=== PATIENT | male | born 1950 | race Caucasian/White ===

== ENCOUNTER 2017-02-04 14:17 | Emergency (ER) | payer MEDICARE, BC ==
[2017-02-04 14:33] VITALS: BP 152/81
--- NOTE | 2017-02-04 17:13 | CT ---
CT abdomen and pelvis Technique: Multiple axial sections were obtained from above the dome of the diaphragm inferiorly through the pubic symphysis. Intravenous and oral contrast was not utilized. Study has been performed as a ureteral stone protocol. Findings: Left kidney shows a minimal nonobstructing stone measuring 3 mm. Right kidney shows a larger stone measuring 1.2 cm which lies within the distal right renal pelvis. This could cause intermittent obstruction at the UPJ. No other abnormal calcifications are seen within the kidneys. No ureteral dilatation or ureteral calculus is seen. Visualized lung bases shows nothing acute. Liver shows no focal parenchymal abnormality. Possible fatty infiltration is noted within the liver. Spleen appears within normal limits. Adrenal glands show no nodule. Pancreas is within normal limits. Gallbladder shows no calcified gallstones. Aorta shows mild atherosclerotic calcification without aneurysm. No retroperitoneal adenopathy or mesenteric abnormalities are seen. No pelvic mass or adenopathy is seen. Appendix is not visualized with certainty. Fat-containing umbilical hernia is incidentally noted. Small fat containing bilateral inguinal hernias are also noted. No free fluid or inflammatory change is seen. Bone window settings shows scattered degenerative change and scoliosis within the spine. Vacuum disc phenomena is seen primarily within the L3-4 through L5-S1 disks. Annular rupture is seen at L5-S1 with small amount of epidural air. Mild spondylolisthesis seen at L4-L5 due to degenerative apophyseal change. Impression: 1. 1.2 cm stone located within the distal right renal pelvis. As mentioned above, this could cause intermittent obstruction at the UPJ. 2. Minimal nonobstructing stone within the left kidney. 3. No ureteral dilatation or ureteral stone is seen. 4. Other incidental findings as noted above. Diagnostic code #3
--- NOTE | 2017-02-04 18:13 | EDM.PDOC ---
ED HPI GENERAL MEDICAL PROBLEM - General Chief Complaint: Abdominal Pain Stated Complaint: RT SIDE ABDOMINAL PAIN Time Seen by Provider: 02/04/17 15:05 Source of Information: Reports: Patient History Limitations: Reports: No Limitations - History of Present Illness INITIAL COMMENTS - FREE TEXT/NARRATIVE: 66-year-old male presents for evaluation treatment of right lower quadrant abdominal pain. Patient reports that the pain has been present for the last 2 weeks. He states that lifting and physical labor makes the pain worse. It is nearly resolved when he is sitting and stretching. Reports it is worse it is a 10 out of 10.He reports nausea associated with pain. He denies any dysuria, hematuria, fevers or vomiting. Reports that his last bowel movement was yesterday soft and easily passed. No trouble with diarrhea, constipation, melena or hematochezia. The patient reports that he has had kidney stones the past and does not feel this feels similar. Patient has a ventral abdominal wall hernia which is in need of repair. He has not appreciated any erythema, swelling or severe pain to the hernia. He reports that it is reducible. Patient has past medical history of diabetes. Abdomen Pain Score (Numeric/FACES): 5 - Related Data Allergies Allergy/AdvReac Type Severity Reaction Status Date / Time No Known Allergies Allergy Verified 03/08/15 17:23 Home Meds: Home Meds Glimepiride [Glimepiride] 2 mg PO BID 03/08/15 [History] Ibuprofen [Motrin] 800 mg PO Q6H PRN 03/08/15 [History] Insulin Glarg,Human.Rec.Analog [LantUS Solostar] 40 unit SQ DAILY 03/08/15 [ History] oxyCODONE HCl/Acetaminophen [Percocet 5-325 mg Tablet] 5 - 325 mg PO Q6H PRN [History] sitaGLIPtin Phos/Metformin HCl [Janumet 50-1,000 MG] 50 - 1,000 mg PO BID [History] Acetaminophen/oxyCODONE [Percocet 325-5 MG] 1 tab PO Q6H PRN #20 tablet [Rx] Past Medical History Other HEENT History: hearing aides and reading glasses Other Genitourinary History: on medication for frequent urination Endocrine/Metabolic History: Reports: Diabetes, Type II Other Endocrine/Metabolic History: on insulin - Past Surgical History Other HEENT Surgeries/Procedures: hearing aides and reading glasses Social & Family History - Tobacco Use Smoking Status *Q: Former Smoker Years of Tobacco use: 23 Used Tobacco, but Quit: Yes Month Tobacco Last Used: 1983 Second Hand Smoke Exposure: No - Caffeine Use Caffeine Use: Reports: Coffee, Soda - Recreational Drug Use Recreational Drug Use: No ED ROS GENERAL - Review of Systems Review Of Systems: See Below Constitutional: Denies: Fever GI/Abdominal: Reports: Abdominal Pain (RLQ abd pain), Nausea (associated with pain), Other (ventral abdominal hernia, no swelling, increased erythema or pain) . Denies: Constipation, Diarrhea, Hematochezia, Melena, Vomiting : Denies: Dysuria, Hematuria Skin: Denies: Erythema ED EXAM, RENAL/ - Physical Exam Exam: See Below Exam Limited By: No Limitations General Appearance: Alert, WD/WN, No Apparent Distress, Obese Respiratory/Chest: No Respiratory Distress, Lungs Clear, Normal Breath Sounds Cardiovascular: Normal Peripheral Pulses, Regular Rate, Rhythm, No Murmur GI/Abdominal: Normal Bowel Sounds, Soft, Non-Tender (unable to reporduce pain), Hernia (approximately golf ball sized reducable abdominal wall hernia) Back Exam: Normal Inspection. No: CVA Tenderness (L), CVA Tenderness (R) Neurological: Alert, Oriented, Normal Cognition Psychiatric: Normal Affect, Normal Mood Skin Exam: Warm, Normal Color Course - Vital Signs Last Recorded V/S: Last Vital Signs Temp 35.9 C 02/04/17 14:32 Pulse 85 02/04/17 14:32 Resp 20 02/04/17 14:32 BP 152/81 H 02/04/17 14:32 Pulse Ox 95 02/04/17 14:32 - Orders/Labs/Meds Orders: Active Orders 24 hr Category Date Time Status Abdomen 2V AP Flat Upright [CR] Stat Exams 02/04/17 15:14 Taken Labs: Laboratory Tests 02/04/17 02/04/17 02/04/17 Range/Units 15:30 15:45 15:45 WBC 9.28 H (4.23-9.07) K/mm3 RBC 4.81 (4.63-6.08) M/mm3 Hgb 14.5 (13.7-17.5) gm/L Hct 44.7 (40.1-51.0) % MCV 92.9 H (79.0-92.2) fl MCH 30.1 (25.7-32.2) pg MCHC 32.4 (32.2-35.5) g/dl RDW Std Deviation 46.6 H (35.1-43.9) fL Plt Count 204 (163-337) K/mm3 MPV 9.9 (9.4-12.3) fl Neut % (Auto) 68.0 H (34.0-67.9) % Lymph % (Auto) 21.7 L (21.8-53.1) % Mckean % (Auto) 7.1 (5.3-12.2) % Eos % (Auto) 2.8 (0.8-7.0) Baso % (Auto) 0.3 (0.1-1.2) % Neut # (Auto) 6.31 H (1.78-5.38) K/mm3 Lymph # (Auto) 2.01 (1.32-3.57) K/mm3 Mckean # (Auto) 0.66 (0.30-0.82) K/mm3 Eos # (Auto) 0.26 (0.04-0.54) K/mm3 Baso # (Auto) 0.03 (0.01-0.08) K/mm3 Sodium 141 (136-145) mEq/L Potassium 4.3 (3.5-5.1) mEq/L Chloride 104 (98-107) mEq/L Carbon Dioxide 25 (21-32) mEq/L Anion Gap 16.3 H (5-15) BUN 22 H (7-18) mg/dL Creatinine 1.1 (0.7-1.3) mg/dL Est Cr Clr Drug Dosing 75.77 mL/min Estimated GFR (MDRD) > 60 (>60) mL/min BUN/Creatinine Ratio 20.0 H (14-18) Glucose 187 H (80-115) mg/dL Calcium 9.1 (8.5-10.1) mg/dL Total Bilirubin 0.5 (0.2-1.0) mg/dL AST 12 L (15-37) U/L ALT 25 (16-63) U/L Alkaline Phosphatase 64 (46-116) U/L C-Reactive Protein 1.9 H* (<1.0) mg/dL Total Protein 7.4 (6.4-8.2) g/dl Albumin 3.7 (3.4-5.0) g/dl Globulin 3.7 gm/dL Albumin/Globulin Ratio 1.0 (1-2) Urine Color Light yellow (Yellow) Urine Appearance Slt cloudy H (Clear) Urine pH 5.5 (5.0-8.0) Ur Specific [place] > or = 1.030 (1.005-1.030) Urine Protein 2+ H (Negative) Urine Glucose (UA) 1+ H (Negative) Urine Ketones Negative (Negative) Urine Occult Blood 3+ H (Negative) Urine Nitrite Negative (Negative) Urine Bilirubin Negative (Negative) Urine Urobilinogen 0.2 (0.2-1.0) Ur Leukocyte Esterase Negative (Negative) Urine RBC >100 H (0-5) /hpf Urine WBC 0-5 (0-5) /hpf Ur Epithelial Cells 0-5 (0-5) /hpf Amorphous Sediment Few H (NOT SEEN) /hpf Urine Bacteria Few (FEW) /hpf Urine Mucus Not seen (FEW) /hpf - Radiology Interpretation Free Text/Narrative:: flat and upright abdominal xray shows increased stool to the right colon. No air fluid levels. CT of the abdomen and pelvis without contrast impression for Dr. Hyde 1. 1.2 cm stone located within the distal right renal pelvis. As mentioned this could cause intermittent obstruction at the UPJ. 2. Minimal nonobstructing stone within the left kidney. 3. No ureteral dilation or ureteral stone is seen. 4. Other incidental findings. - Re-Assessments/Exams Free Text/Narrative Re-Assessment/Exam: 02/04/17 16:25 Labs return. White blood cell count 9.28, hemoglobin 14.5 and platelets are 204. Sodium 141, potassium 4.3 and chloride 104. Anion gap 16.3. Creatinine 1.1. Glucose 187. CRP 1.9. UA is 2+ protein, 1+ glucose and 3+ blood. Negative for nitrates and leukocytes. Few bacteria seen on microscopy. I reviewed the labs and xray with the patient. I feel we should obtain a CT as the patient has 3+ blood and is symptomatic. Patient declines pain medication. Agrees to CT. 02/04/17 18:[address] results with the patient. Patient reports he had a lithotripsy done about 1-2 years ago. At that time he was told he had another stone that would likely require lithotripsy but his urologist has since left. Is not seeing another urologist recently. Will discharge home. Discharge instructions this documented. Departure - Departure Time of Disposition: 18:08 Disposition: Home, Self-Care 01 Clinical Impression: Nephrolithiasis - Discharge Information Prescriptions: Acetaminophen/oxyCODONE [Percocet 325-5 MG] 1 tab PO Q6H PRN #20 tablet PRN Reason: Pain Instructions: Kidney Stones, [id number] Referrals: Juan José Montiel MD [Primary Care Provider] - Abram Mcdonnell MD [Consulting Physician] - Forms: ED Department Discharge Additional Instructions: Follow-up with urology as soon as you are able to. Call [phone] Mcdonnell. Please call tomorrow to schedule. Let them know you have a 1.2 cm stone within the distal right renal pelvis causing intermittent obstruction at the UPJ. Percocet 1-2 tabs every 4-6 hours as needed for severe pain not relieved by over -the-counter ibuprofen. Do not drive or operate machinery within all hours of taking the Percocet. Percocet can be habit-forming, recommend he take as few as needed to control your pain. Follow-up with surgery for your hernia repair. Recommend Dr. Conte. Call [phone] Conte. Recommend starting MiraLAX daily. This is available [id number]. Narcotics can be constipating and this will help you have a soft bowel movement daily. Please return to ER if your symptoms change or worsen. - My Orders Last 24 Hours: My Active Orders 02/04/17 15:14 Abdomen 2V AP Flat Upright [CR] Stat - Assessment/Plan Last 24 Hours: My Active Orders 02/04/17 15:14 Abdomen 2V AP Flat Upright [CR] Stat
--- NOTE | 2017-02-05 12:13 | CR ---
Abdomen: Supine and upright views of the abdomen were obtained. Comparison: No previous abdominal x-ray. Study correlated with subsequent CT exam performed on the same date. Calcification is seen medially within the right kidney compatible with stone as noted on subsequent CT exam within the right renal pelvis. No other abnormal calcifications are seen. Scoliosis and degenerative change are present within the spine. Calcifications are identified within the pelvis which appear to represent bowel content on subsequent CT exam. Mild degenerative change is seen within both hips. No free air is seen. Bowel gas pattern is normal. Impression: 1. Calcification medial to the right kidney compatible with stone within the right renal pelvis as noted on subsequent CT exam. 2. Other incidental findings as described above. Diagnostic code #3
== END 2017-02-04 18:27 | disposition home or self-care (01) ==
LOC: JD.ED 14:17
DX: N20.0 Calculus of kidney (principal); E11.9 Type 2 diabetes mellitus without complications; Z79.4 Long term (current) use of insulin; Z79.899 Other long term (current) drug therapy; Z87.891 Personal history of nicotine dependence
CPT/HCPCS: 36415; 74020; 74020-26; 74176; 74176-26; 80053; 81001; 85025; 86140; 99284; 99285-25

== ENCOUNTER 2018-05-15 06:37 | Day surgery (SDC) | payer MEDICARE, BC ==
[2018-05-15] MEDS ORDERED: Lidocaine 1%/Sod Bicarbonate in NS 8.4% 1 ML Syringe IDERM PRN (07:00)
[2018-05-15] MEDS ORDERED: Sodium Chloride 0.9% 10 ML Syringe FLUSH PRN (07:00)
[2018-05-15] MEDS ORDERED: Lactated Ringers 1,000 ML IV SCH (07:00)
[2018-05-15] MEDS ORDERED: ceFAZolin 1 GM Vial ONE ×2 (07:19→08:21)
[2018-05-15] MEDS ORDERED: Ondansetron 4 MG/2 ML SDV ONE ×2 (07:19→12:05)
[2018-05-15] MEDS ORDERED: Propofol 200 MG/20 ML SDV ONE (07:19)
[2018-05-15] MEDS ORDERED: Dexamethasone 4 MG/ML SDV ONE ×2 (07:19→07:24)
[2018-05-15] MEDS ORDERED: Rocuronium 50 MG/5 ML Vial ONE ×2 (07:19→09:20)
[2018-05-15] MEDS ORDERED: Lactated Ringers 1,000 ML ONE ×2 (07:19→11:05)
[2018-05-15] MEDS ORDERED: Midazolam 1 MG/ML 2 ML SDV ONE (07:20)
[2018-05-15] MEDS ORDERED: fentaNYL 250 MCG/5 ML SDV ONE (07:20)
[2018-05-15] MEDS ORDERED: Lidocaine 1% 4 ML ONE (07:20)
[2018-05-15] MEDS ORDERED: Lidocaine 1% with EPINEPHrine 1:100,000 20 ML MDV ONE (07:24)
[2018-05-15] MEDS ORDERED: Bupivacaine 0.5%/EPINEPHrine 1:200,000 50 ML MDV ONE (07:24)
--- NOTE | 2018-05-15 08:13 | PCM.PREANE ---
Preanesthetic Assessment - Anesthesia/Transfusion/Family Hx Anesthesia History: Prior Anesthesia Without Reaction Family History of Anesthesia Reaction: No Transfusion History: No Prior Transfusion(s) - Review of Systems General: No Symptoms Pulmonary: No Symptoms, Other (BILL) Cardiovascular: No Symptoms Gastrointestinal: No Symptoms Neurological: Tremors (Parkinsons ) Other: Reports: Diabetes (DM 2. On insulin/oral medications. Blood glucose was 107 this am. ) - Physical Assessment NPO Status Date: 05/15/18 NPO Status Time: 05:30 O2 Sat by Pulse Oximetry: 95 Respiratory Rate: 20 Vital Signs: Last Vital Signs Temp 36.4 C 05/15/18 07:15 Pulse 61 05/15/18 07:15 Resp 20 05/15/18 07:15 BP 154/73 H 05/15/18 07:15 Pulse Ox 95 05/15/18 07:15 Height: 1.88 m Weight: 124.4 kg ASA Class: 2 Mental Status: Alert & Oriented x3 Airway Class: Mallampati = 2 Dentition: Reports: Implants (Uppers) Thyro-Mental Finger Breadths: 3 Mouth Opening Finger Breadths: 3 ROM/Head Extension: Full Lungs: Clear to Auscultation, Normal Respiratory Effort Cardiovascular: Regular Rate, Regular Rhythm - Lab Values: Laboratory Last Values POC Glucose 107 mg/dL (80-115) 05/15/18 07:36 - Allergies Allergies/Adverse Reactions: Allergies Allergy/AdvReac Type Severity Reaction Status Date / Time [id number] Reductase Allergy Body Aches Verified 05/15/18 08:04 Inhibitor - Acknowledgements Anesthesia Type Planned: General Anesthesia Pt an Appropriate Candidate for the Planned Anesthesia: Yes Alternatives and Risks of Anesthesia Discussed w Pt/Guardian: Yes Pt/Guardian Understands and Agrees with Anesthesia Plan: Yes PreAnesthesia Questionnaire HEENT History: Reports: Impaired Vision Other HEENT History: hearing aides and reading glasses Cardiovascular History: Reports: High Cholesterol, Hypertension Respiratory History: Reports: Sleep Apnea Gastrointestinal History: Reports: None Genitourinary History: Reports: Other (See Below) Other Genitourinary History: kidney calculus, neurogenic bladder, TURP, cystoscopy, lithotripsy TRANSPORTATION BROKER History: Reports: None Musculoskeletal History: Reports: Arthritis Neurological History: Reports: Parkinson's, Other (See Below) Other Neuro History: back surgery Psychiatric History: Reports: None Endocrine/Metabolic History: Reports: Diabetes, Type II Other Endocrine/Metabolic History: on insulin Hematologic History: Reports: None Immunologic History: Reports: None Oncologic (Cancer) History: Reports: None Dermatologic History: Reports: None - Past Surgical History Head Surgeries/Procedures: Reports: None HEENT Surgical History: Reports: Naso-Sinus Surgery, Other (See Below) Other HEENT Surgeries/Procedures: polyps on vocal cord surgery Cardiovascular Surgical History: Reports: None Respiratory Surgical History: Reports: None GI Surgical History: Reports: Colonoscopy Male Surgical History: Reports: Lithotripsy ([facility]) Endocrine Surgical History: Reports: None Neurological Surgical History: Reports: None Musculoskeletal Surgical History: Reports: Knee Replacement Oncologic Surgical History: Reports: None Dermatological Surgical History: Reports: None - SUBSTANCE USE Smoking Status *Q: Former Smoker Recreational Drug Use History: No - HOME MEDS Home Medications: Home Meds Glimepiride 4 mg PO DAILY 03/08/15 [History] Ibuprofen [Motrin] 800 mg PO Q6H PRN 03/08/15 [History] sitaGLIPtin Phos/Metformin HCl [Janumet 50-1,000 MG] 50 - 1,000 mg PO BID [History] Aspirin [Halfprin] 81 mg PO DAILY 05/14/18 [History] Carbidopa/Levodopa [Sinemet 25-100 mg Tablet] 1 tab PO QID 05/14/18 [History] Finasteride [Proscar] 5 mg PO DAILY 05/14/18 [History] Insulin Degludec 44 units SQ DAILY 05/14/18 [History] Levothyroxine [Synthroid] 50 mcg PO DAILY 05/14/18 [History] Oxybutynin Chloride [Ditropan Xl] 10 mg PO DAILY 05/14/18 [History] Solifenacin Succinate [Vesicare] 10 mg PO DAILY 05/14/18 [History] guaiFENesin [Mucinex] 600 mg PO BID PRN 05/14/18 [History] - CURRENT (IN HOUSE) MEDS Current Meds: Current Medications Lactated Ringer's (Ringers, Lactated) 1,000 mls @ 125 mls/hr IV ASDIRECTED NALDO Stop: 05/15/18 23:00 Last Admin: 05/15/18 07:35 Dose: 125 mls/hr Lidocaine/Sodium Bicarbonate (Buffered Lidocaine 1% In Ns 8.4%) 0.25 ml IDERM ONETIME PRN PRN Reason: Prior to IV Start Stop: 05/15/18 18:00 Last Admin: 05/15/18 07:34 Dose: 0.25 ml Sodium Chloride (Saline Flush) 10 ml FLUSH ASDIRECTED PRN PRN Reason: Keep Vein Open Stop: 05/15/18 18:00 Discontinued Medications Bupivacaine HCl/Epinephrine Bitart (Marcaine 0.5%/Epinephrine 1:200,000) Confirm Administered Dose 50 ml .ROUTE .STK-MED ONE Stop: 05/15/18 07:25 Cefazolin Sodium (Ancef) Confirm Administered Dose 2 gm .ROUTE .STK-MED ONE Stop: 05/15/18 07:20 Dexamethasone (Dexamethasone) Confirm Administered Dose 4 mg .ROUTE .STK-MED ONE Stop: 05/15/18 07:20 Dexamethasone (Dexamethasone) Confirm Administered Dose 4 mg .ROUTE .STK-MED ONE Stop: 05/15/18 07:25 Fentanyl (Sublimaze) Confirm Administered Dose 250 mcg .ROUTE .STK-MED ONE Stop: 05/15/18 07:21 Lactated Ringer's (Ringers, Lactated) Confirm Administered Dose 1,000 mls @ as directed .ROUTE .STK-MED ONE Stop: 05/15/18 07:20 Lidocaine HCl (Xylocaine-Mpf 1%) Confirm Administered Dose 4 mls @ as directed .ROUTE .STK-MED ONE Stop: 05/15/18 07:21 Lidocaine/Epinephrine (Xylocaine 1% With Epinephrine 1:100,000) Confirm Administered Dose 40 ml .ROUTE .STK-MED ONE Stop: 05/15/18 07:25 Midazolam HCl (Versed 1 Mg/Ml) Confirm Administered Dose 2 mg .ROUTE .STK-MED ONE Stop: 05/15/18 07:21 Ondansetron HCl (Zofran) Confirm Administered Dose 4 mg .ROUTE .STK-MED ONE Stop: 05/15/18 07:20 Propofol (Diprivan 20 Ml) Confirm Administered Dose 400 mg .ROUTE .STK-MED ONE Stop: 05/15/18 07:20 Rocuronium [place] (Zemuron) Confirm Administered Dose 50 mg .ROUTE .STK-MED ONE Stop: 05/15/18 07:20
[2018-05-15] MEDS ORDERED: HYDROmorphone 0.5 MG/0.5 ML Syringe ONE ×2 (09:26→11:25)
[2018-05-15] MEDS ORDERED: Albuterol 0.083% 2.5 MG/3 ML Neb Soln NEB ONE (10:46)
[2018-05-15] MEDS ORDERED: fentaNYL 100 MCG/2 ML SDV IVPUSH PRN (10:46)
[2018-05-15] MEDS ORDERED: diphenhydrAMINE 50 MG/ML SDV IVPUSH PRN (10:46)
[2018-05-15] MEDS ORDERED: fentaNYL 100 MCG/2 ML SDV ONE (12:05)
--- NOTE | 2018-05-15 12:17 | PCM.OPNOTE ---
- General Post-Op/Procedure Note Date of Surgery/Procedure: 05/15/18 Operative Procedure(s): laparoscopic bilateral inguinal hernia repair with mesh , and laparoscopic umbilical hernia repair with mesh Findings: 2cm umbilical hernia defect with incarcerated omentum, and bilateral direct inguinal hernias Pre Op Diagnosis: umbilical hernia, possible right inguinal hernia Post-Op Diagnosis: umbilical hernia, bilateral inguinal hernias Anesthesia Technique: General ET Tube Primary Surgeon: Bri Sage Anesthesia Provider: Karena Altamirano Pathology: none Fluid Replacement, Intraop: 2,500 Output, Urine Amount: 0 EBL in mLs: 20 Drain/Tube Comments:: none Complications: none apparent Condition: Good
--- NOTE | 2018-05-15 12:34 | PCM.POSTAN ---
POST ANESTHESIA ASSESSMENT - MENTAL STATUS Mental Status: Somnolent - VITAL SIGNS Pulse Rate: 70 SaO2: 95 Resp Rate: 16 Blood Pressure: 183/76 Temperature: 36.4 C - RESPIRATORY Respiratory Status: Respiratory Rate WNL, Airway Patent, O2 Saturation Stable, Supplemental Oxygen - CARDIOVASCULAR CV Status: Pulse Rate WNL, Blood Pressure Stable - GASTROINTESTINAL GI Status: No Symptoms - PAIN Pain Score: 0 - POST OP HYDRATION Hydration Status: Adequate & Stable
[2018-05-15] MEDS ORDERED: Ketorolac 30 MG/ML SDV IVPUSH ONE (12:45)
[2018-05-15] MEDS: HYDROmorphone 0.5 MG/0.5 ML Syringe IVPUSH PRN ×2 (12:48→13:10)
[2018-05-15] MEDS ORDERED: Acetaminophen/HYDROcodone 325-5 MG Tab PO PRN (14:03)
[2018-05-15] MEDS ORDERED: HYDROmorphone 0.5 MG/0.5 ML Syringe IVPUSH PRN (14:04)
--- NOTE | 2018-05-15 17:07 | PCM.PRNOTE ---
- Free Text/Narrative Note: Operative Report Date of surgery: May 15, 2018 Preoperative diagnosis: Umbilical hernia, possible right inguinal hernia Postoperative diagnosis: Umbilical hernia with bilateral inguinal hernias Procedure: Laparoscopic umbilical hernia repair with mesh, and bilateral laparoscopic inguinal hernia repairs with mesh Surgeon: Dr. Bri Sage Anesthesia: General endotracheal Operations Plant Attendant: Karena Becker CRNA Estimated blood loss: 20 mL IV fluids: 2500 mL crystalloid Urine output: Not recorded Drains and lines: None Findings: 2 cm umbilical hernia defect with incarcerated omentum, bilateral direct inguinal hernias Pathology: none Indication for the procedure: The patient is a 67-year-old gentleman who presented to my office complaining of a symptomatic umbilical hernia. He was seen by his primary care physician who is also concerned about the appearance of this hernia. The patient had had progression of the skin where it had become erythematous. He also is complaining of right inguinal pain. Exam in the office did not reveal a hernia in the inguinal region. However, due to the patient's symptoms, we opted for laparoscopic approach, with ability to do a diagnostic laparoscopy. I discussed with the patient that if he had an inguinal hernia present at the time of the surgery, the Marcos proceed with an inguinal hernia repair. I also discussed the patient the possibility of doing a bilateral inguinal hernia repair. The patient was agreeable. We discussed the risks of infection, bleeding and damage to surrounding structures. Written consent was obtained Description of the procedure: The patient presented to the outpatient holding area on the day of his procedure. His history and physical are verified and his consent was present on the chart. He was taken back to the operating room and placed in supine position on the operating table. SCD boots were placed and functional prior to the start of the procedure. The patient had successful induction of general anesthesia and was intubated without difficulty. He was given preoperative antibiotics of 3 g Ancef per SCIP protocol. No Shields catheter was placed as the patient voided prior to coming to the operating room. His left arm was tucked and padded appropriately. A surgical timeout was performed. The patient was prepped and draped in standard surgical fashion and an Ioban was placed on the abdomen We proceeded with a 5 mm incision in the left upper quadrant. A 5 mm port was inserted into the abdomen using the Visiport technique under direct visualization. The abdomen was insufflated to 15 mmHg. We immediately noted that there was a large amount of intra-abdominal fat. The omentum was incarcerated in the umbilical hernia defect. We then surveyed the bilateral groins and noted that the patient had bilateral inguinal hernias. A TAP block was then performed using 60 mL of mixed 1% lidocaine with epinephrine and 0.5% bupivacaine with epinephrine. A 5 mm port was then placed in the left hemiabdomen. At this point in time, the omentum that was incarcerated in the umbilicus was obscuring vision. This was reduced and the adhesions taken down using laparoscopic jonathan and the Bovie device. Once the omentum had been reduced out of the hernia sac and removed, a 12 mm port was then placed to the umbilical hernia defect. An additional 5 mm port was placed in the right hemiabdomen under direct visualization. We proceeded to create a flap of peritoneum from the right lateral abdominal wall towards midline. This was dissected down towards the inguinal canal. We dissected medially to the level of Huebr's ligament. The hernia was then reduced from the inguinal canal. A large cord lipoma was noted. The vas deferens was visualized and protected. We then placed a large, lightweight right-sided mesh in the area and this was tacked using absorbable tacker to the Huber's ligament. It was then secured medially along the abdominal wall and laterally on the abdominal wall. The reduced fat and cord lipoma were placed over the mesh to help secure its position. The peritoneum was then closed using absorbable tacker over the mesh and defect we had created. We then turned our attention to the patient's left side. The peritoneum on the left was then mobilized using the Bovie device and cautery to create a peritoneal flap from the left lateral abdominal wall towards the midline. This was then dissected down using Bovie device and blunt dissection to the level of the inguinal canal. Medially, we dissected to the level of Huber's ligament We then proceeded to dissect the hernia sac free from the spermatic cord. The vas deferens was identified and protected. The patient also had a cord lipoma present on the left side. Once we had dissected free the peritoneum from the cord structures, an extra-large light weight left sided mesh was placed into the defect. An absorbable tacker was then used to secure the mesh to Huber's ligament medially on the abdominal wall and laterally on the abdominal wall. Again on this side, the cord lipoma and other fat that appeared reduced from the hernia was placed on top of the mesh to secure its position. The peritoneum was then closed over the defect and mesh. There were 2 small holes noted in the peritoneum, and these were additionally closed using the absorbable tacker. We then turned our attention to the umbilical defect. An 0 Ethibond was then used with an Endo Close device to place a suture around the hernia defect. 3 sutures were placed in a running fashion. The 12 mm port was then replaced into the abdomen and a medium size double-sided ventral ex mesh was placed through the 12 mm port into the abdomen. The port was then removed and the tails grasped externally on the mesh. The mesh was then unfurled onto the abdominal wall. The suture was then tied down to close the hernia defect. The mesh was then tacked to the abdominal wall using an absorbable tacker. The tails were then clipped. We completed tacking the mesh circumferentially. Once we had done this, we noted that there was good hemostasis in all areas that we had operated. The abdomen was then desufflated. The port sites were closed using a 4-0 Monocryl subcutaneous stitch and covered with Dermabond surgical glue. The patient tolerated the procedure well. All sponge, needle counts are correct at the conclusion of this procedure. Bri Sage MD General Surgery
[2018-05-15] MEDS ORDERED: guaiFENesin 600 MG Tab.ER PO PRN (20:03)
[2018-05-15] MEDS: metFORMIN 500 MG Tab PO SCH (20:50)
[2018-05-15] MEDS: Trospium 20 MG Tab PO SCH (20:51)
[2018-05-15] MEDS: Alogliptin 12.5 MG TABLET PO SCH (20:51)
[2018-05-15] MEDS: Carbidopa/Levodopa 25-100 MG Tab PO SCH (20:52)
[2018-05-15] MEDS ORDERED: HYDROmorphone 1 MG/ML Syringe IVPUSH PRN (22:27)
[2018-05-15] MEDS: Acetaminophen/HYDROcodone 325-5 MG Tab PO PRN (22:46)
[2018-05-16] MEDS: Trospium 20 MG Tab PO SCH (05:52)
[2018-05-16] MEDS: Acetaminophen/HYDROcodone 325-5 MG Tab PO PRN ×2 (05:53→10:51)
[2018-05-16] MEDS: Carbidopa/Levodopa 25-100 MG Tab PO SCH ×2 (05:53→08:24)
[2018-05-16] MEDS ORDERED: Levothyroxine 50 MCG Tab PO SCH (06:00)
[2018-05-16 06:27] VITALS: BP 150/79
[2018-05-16] MEDS: metFORMIN 500 MG Tab PO SCH (08:24)
[2018-05-16] MEDS: Alogliptin 12.5 MG TABLET PO SCH (08:24)
[2018-05-16] MEDS ORDERED: Finasteride 5 MG Tab PO SCH (09:00)
[2018-05-16] MEDS ORDERED: Oxybutynin 5 MG Tab.ER PO SCH (09:00)
[2018-05-16] MEDS ORDERED: Insulin Glargine,Human Rec. Analog 100 Units/ML 3 ML Pen SUBCUT SCH (09:00)
[2018-05-16] MEDS ORDERED: Glimepiride 2 MG Tab PO SCH (09:00)
[2018-05-16] MEDS ORDERED: Aspirin 81 MG Tab.EC PO SCH (09:00)
--- NOTE | 2018-05-16 10:01 | PCM.SURGPN ---
- General Info Date of Service: 05/16/18 POD#: 1 Post-Op Diagnosis: s/p laparoscopic umbilical and bilateral inguinal hernia repairs with mesh Functional Status: Reports: Pain Controlled, Tolerating Diet, Ambulating, Urinating - Patient Data Vitals - Most Recent: Last Vital Signs Temp 36.7 C 05/16/18 05:00 Pulse 59 L 05/16/18 05:00 Resp 14 05/16/18 05:00 BP 150/79 H 05/16/18 05:00 Pulse Ox 95 05/16/18 05:00 Weight - Most Recent: 124.4 kg I&O - Last 24 Hours: Intake & Output 05/15/18 05/16/18 05/16/18 22:59 06:59 14:59 Intake Total 640 800 Output Total 300 1150 Balance 340 -350 Lab Results Last 24 Hrs: Laboratory Results - last 24 hr 05/15/18 05/15/18 05/15/18 Range/Units 09:55 12:35 15:57 POC Glucose 153 H 181 H 141 H (80-115) mg/dL 05/15/18 05/16/18 Range/Units 20:43 08:23 POC Glucose 193 H 101 (80-115) mg/dL Med Orders - Current: Current Medications Hydrocodone Bitart/Acetaminophen ([place] 325-5 Mg) 2 tab PO Q4H PRN PRN Reason: Pain (severe 7-10) Last Admin: 05/16/18 05:53 Dose: 2 tab Alogliptin Benzoate (Alogliptin) 12.5 mg PO BID [facility] Last Admin: 05/16/18 08:24 Dose: 12.5 mg Aspirin (Halfprin) 81 mg PO DAILY [facility] Last Admin: 05/16/18 08:23 Dose: 81 mg Carbidopa/Levodopa (Sinemet 25-100 Mg) 1 tab PO QID [facility] Last Admin: 05/16/18 08:24 Dose: 1 tab Finasteride (Proscar) 5 mg PO DAILY [facility] Last Admin: 05/16/18 08:24 Dose: 5 mg Glimepiride (Amaryl) 4 mg PO DAILY [facility] Last Admin: 05/16/18 08:24 Dose: 4 mg Guaifenesin (Mucinex) 600 mg PO BID PRN PRN Reason: asdirected Hydromorphone HCl (Dilaudid) 0.5 mg IVPUSH Q3H PRN PRN Reason: Breakthrough Pain Insulin Glargine (Lantus Solostar) 44 units SUBCUT DAILY [facility] Last Admin: 05/16/18 08:28 Dose: Not Given Levothyroxine Sodium (Synthroid) 50 mcg PO ACBREAKFAST [facility] Last Admin: 05/16/18 05:52 Dose: 50 mcg Metformin HCl (Glucophage) 1,000 mg PO BID [facility] Last Admin: 05/16/18 08:24 Dose: 1,000 mg Oxybutynin Chloride (Oxybutynin Er) 10 mg PO DAILY [facility] Last Admin: 05/16/18 08:24 Dose: 10 mg Trospium (Sanctura) 20 mg PO BIDAC [facility] Last Admin: 05/16/18 05:52 Dose: 20 mg Discontinued Medications Hydrocodone Bitart/Acetaminophen ([place] 325-5 Mg) 2 tab PO Q4H PRN PRN Reason: Pain (severe 7-10) Stop: 05/15/18 20:00 Last Admin: 05/15/18 15:41 Dose: 1 tab Albuterol (Proventil Neb Soln) 2.5 mg NEB ONETIME ONE Stop: 05/15/18 10:47 Last Admin: 05/15/18 17:08 Dose: Not Given Bupivacaine HCl/Epinephrine Bitart (Marcaine 0.5%/Epinephrine 1:200,000) Confirm Administered Dose 50 ml .ROUTE .STK-MED ONE Stop: 05/15/18 07:25 Last Admin: 05/15/18 09:05 Dose: 30 ml Cefazolin Sodium (Ancef) Confirm Administered Dose 2 gm .ROUTE .STK-MED ONE Stop: 05/15/18 07:20 Cefazolin Sodium (Ancef) Confirm Administered Dose 1 gm .ROUTE .STK-MED ONE Stop: 05/15/18 08:22 Dexamethasone (Dexamethasone) Confirm Administered Dose 4 mg .ROUTE .STK-MED ONE Stop: 05/15/18 07:20 Dexamethasone (Dexamethasone) Confirm Administered Dose 4 mg .ROUTE .STK-MED ONE Stop: 05/15/18 07:25 Diphenhydramine HCl (Benadryl) 25 mg IVPUSH Q6H PRN PRN Reason: Pruritis Stop: 05/15/18 14:00 Fentanyl (Sublimaze) Confirm Administered Dose 250 mcg .ROUTE .STK-MED ONE Stop: 05/15/18 07:21 Fentanyl (Sublimaze) 50 mcg IVPUSH Q5M PRN PRN Reason: Pain Stop: 05/15/18 16:00 Last Admin: 05/15/18 13:35 Dose: 50 mcg Fentanyl (Sublimaze) Confirm Administered Dose 100 mcg .ROUTE .STK-MED ONE Stop: 05/15/18 12:06 Hydromorphone HCl (Dilaudid) Confirm Administered Dose 0.5 mg .ROUTE .STK-MED ONE Stop: 05/15/18 09:27 Hydromorphone HCl (Dilaudid) 0.5 mg IVPUSH ASDIRECTED PRN PRN Reason: Severe Pain Stop: 05/15/18 16:00 Last Admin: 05/15/18 13:10 Dose: 0.5 mg Hydromorphone HCl (Dilaudid) Confirm Administered Dose 0.5 mg .ROUTE .STK-MED ONE Stop: 05/15/18 11:26 Hydromorphone HCl (Dilaudid) 0.5 mg IVPUSH Q3H PRN PRN Reason: Breakthrough Pain Stop: 05/15/18 23:00 Last Admin: 05/15/18 15:38 Dose: 0.5 mg Lactated Ringer's (Ringers, Lactated) 1,000 mls @ 125 mls/hr IV ASDIRECTED NALDO Stop: 05/15/18 23:00 Last Admin: 05/15/18 07:35 Dose: 125 mls/hr Lactated Ringer's (Ringers, Lactated) Confirm Administered Dose 1,000 mls @ as directed .ROUTE .STK-MED ONE Stop: 05/15/18 07:20 Lidocaine HCl (Xylocaine-Mpf 1%) Confirm Administered Dose 4 mls @ as directed .ROUTE .STK-MED ONE Stop: 05/15/18 07:21 Lactated Ringer's (Ringers, Lactated) Confirm Administered Dose 1,000 mls @ as directed .ROUTE .STK-MED ONE Stop: 05/15/18 11:06 Ketorolac Tromethamine (Toradol) 30 mg IVPUSH ONETIME ONE Stop: 05/15/18 12:46 Last Admin: 05/15/18 12:50 Dose: 30 mg Lidocaine/Epinephrine (Xylocaine 1% With Epinephrine 1:100,000) Confirm Administered Dose 40 ml .ROUTE .STK-MED ONE Stop: 05/15/18 07:25 Last Admin: 05/15/18 09:05 Dose: 30 ml Lidocaine/Sodium Bicarbonate (Buffered Lidocaine 1% In Ns 8.4%) 0.25 ml IDERM ONETIME PRN PRN Reason: Prior to IV Start Stop: 05/15/18 18:00 Last Admin: 05/15/18 07:34 Dose: 0.25 ml Midazolam HCl (Versed 1 Mg/Ml) Confirm Administered Dose 2 mg .ROUTE .STK-MED ONE Stop: 05/15/18 07:21 Ondansetron HCl (Zofran) Confirm Administered Dose 4 mg .ROUTE .STK-MED ONE Stop: 05/15/18 07:20 Ondansetron HCl (Zofran) Confirm Administered Dose 4 mg .ROUTE .STK-MED ONE Stop: 05/15/18 12:06 Propofol (Diprivan 20 Ml) Confirm Administered Dose 400 mg .ROUTE .STK-MED ONE Stop: 05/15/18 07:20 Rocuronium [place] (Zemuron) Confirm Administered Dose 50 mg .ROUTE .STK-MED ONE Stop: 05/15/18 07:20 Rocuronium [place] (Zemuron) Confirm Administered Dose 50 mg .ROUTE .STK-MED ONE Stop: 05/15/18 09:21 Sodium Chloride (Saline Flush) 10 ml FLUSH ASDIRECTED PRN PRN Reason: Keep Vein Open Stop: 05/15/18 18:00 - Exam Wound/Incisions: Healing Well General: Alert, Oriented HEENT: Pupils Equal, EOMI Neck: Supple Lungs: Normal Respiratory Effort GI/Abdominal Exam: Soft, Tender (appropriately tender around incisions) Skin: Warm, Dry, Intact, Other (incisions c/d/i) - Problem List & Annotations (1) Umbilical hernia without obstruction and without gangrene SNOMED Code(s): 1406886 Code(s): K42.9 - UMBILICAL HERNIA WITHOUT OBSTRUCTION OR GANGRENE Status: Acute Current Visit: Yes (2) Inguinal hernia bilateral, non-recurrent SNOMED Code(s): 94357487 Code(s): K40.20 - BI INGUINAL HERNIA, W/O OBST OR GANGRENE, NOT SPCF RECUR Status: Acute Current Visit: Yes - Problem List Review Problem List Initiated/Reviewed/Updated: Yes - My Orders Last 24 Hours: Active Orders 24 hr Category Date Time Status Communication Order [RC] ROUTINE Care 05/15/18 10:46 Inactive Cooling Warming Measures [RC] ASDIRECTED Care 05/15/18 10:46 Active Notify Provider [RC] ASDIRECTED Care 05/15/18 10:46 Active Oxygen Therapy [RC] ASDIRECTED Care 05/15/18 10:46 Active Pulse Oximetry [RC] ASDIRECTED Care 05/15/18 10:46 Active RT Aerosol Therapy [RC] ASDIRECTED Care 05/15/18 10:47 Active Ready for Discharge [RC] PER UNIT ROUTINE Care 05/15/18 12:13 Active Regular Diet [DIET] Diet 05/15/18 Dinner Active Acetaminophen/HYDROcodone [[place] 325-5 MG] Med 05/15/18 22:24 Active 2 tab PO Q4H PRN Alogliptin Benzoate [Alogliptin] Med 05/15/18 21:00 Active 12.5 mg PO BID Aspirin [Halfprin] Med 05/16/18 09:00 Active 81 mg PO DAILY Carbidopa/Levodopa [Sinemet 25-100 mg] Med 05/15/18 21:00 Active 1 tab PO QID Finasteride [Proscar] Med 05/16/18 09:00 Active 5 mg PO DAILY Glimepiride [Amaryl] Med 05/16/18 09:00 Active 4 mg PO DAILY HYDROmorphone [Dilaudid] Med 05/15/18 22:27 Active 0.5 mg IVPUSH Q3H PRN Insulin Glarg,Human.Rec.Analog [LantUS Solostar] Med 05/16/18 09:00 Active 44 units SUBCUT DAILY Levothyroxine [Synthroid] Med 05/16/18 06:00 Active 50 mcg PO ACBREAKFAST Oxybutynin [Oxybutynin ER] Med 05/16/18 09:00 Active 10 mg PO DAILY Trospium [Sanctura] Med 05/15/18 21:00 Active 20 mg PO BIDAC guaiFENesin [Mucinex] Med 05/15/18 20:03 Active 600 mg PO BID PRN metFORMIN [Glucophage] Med 05/15/18 21:00 Active 1,000 mg PO BID Resuscitation Status Routine Resus Stat 05/16/18 08:29 Ordered Medication Orders Hydrocodone Bitart/Acetaminophen ([place] 325-5 Mg) 2 tab PO Q4H PRN PRN Reason: Pain (severe 7-10) Last Admin: 05/16/18 05:53 Dose: 2 tab Admin: 05/15/18 22:46 Dose: 2 tab Alogliptin Benzoate (Alogliptin) 12.5 mg PO BID [facility] Last Admin: 05/16/18 08:24 Dose: 12.5 mg Admin: 05/15/18 20:51 Dose: Not Given Aspirin (Halfprin) 81 mg PO DAILY [facility] Last Admin: 05/16/18 08:23 Dose: 81 mg Carbidopa/Levodopa (Sinemet 25-100 Mg) 1 tab PO QID [facility] Last Admin: 05/16/18 08:24 Dose: 1 tab Admin: 05/15/18 20:52 Dose: 1 tab Finasteride (Proscar) 5 mg PO DAILY [facility] Last Admin: 05/16/18 08:24 Dose: 5 mg Glimepiride (Amaryl) 4 mg PO DAILY [facility] Last Admin: 05/16/18 08:24 Dose: 4 mg Guaifenesin (Mucinex) 600 mg PO BID PRN PRN Reason: asdirected Hydromorphone HCl (Dilaudid) 0.5 mg IVPUSH Q3H PRN PRN Reason: Breakthrough Pain Insulin Glargine (Lantus Solostar) 44 units SUBCUT DAILY [facility] Last Admin: 05/16/18 08:28 Dose: Not Given Levothyroxine Sodium (Synthroid) 50 mcg PO ACBREAKFAST [facility] Last Admin: 05/16/18 05:52 Dose: 50 mcg Metformin HCl (Glucophage) 1,000 mg PO BID [facility] Last Admin: 05/16/18 08:24 Dose: 1,000 mg Admin: 05/15/18 20:50 Dose: 1,000 mg Oxybutynin Chloride (Oxybutynin Er) 10 mg PO DAILY [facility] Last Admin: 05/16/18 08:24 Dose: 10 mg Trospium (Sanctura) 20 mg PO BIDAC [facility] Last Admin: 05/16/18 05:52 Dose: 20 mg Admin: 05/15/18 20:51 Dose: 20 mg - Assessment Assessment (Free Text/Narrative):: 67 y/o male s/p laparoscopic umbilical and bilateral inguinal hernia repairs with mesh. Doing well - Plan Plan (Free Text/Narrative):: - continue [place] with ibuprofen for pain control - ambulate as tolerated - regular diet - no lifting more than 20lbs for two weeks Discharge home. Follow up in my office in 2 weeks Bri Sage MD General Surgery
== END 2018-05-16 11:00 | disposition home or self-care (01) ==
LOC: JD.SDS 06:37 → JD.MS 14:50 → JD.SDS 05-16 11:00
PROVIDERS: ATTEND Surgery
DX: K42.0 Umbilical hernia with obstruction, without gangrene (principal); K40.20 Bilateral inguinal hernia, without obstruction or gangrene, not specified as recurrent; D17.6 Benign lipomatous neoplasm of spermatic cord; I10 Essential (primary) hypertension; E11.9 Type 2 diabetes mellitus without complications; G20 Parkinson's disease; E78.5 Hyperlipidemia, unspecified; Z87.891 Personal history of nicotine dependence; Z79.4 Long term (current) use of insulin; Z79.82 Long term (current) use of aspirin; Z79.899 Other long term (current) drug therapy; Z88.8 Allergy status to other drugs, medicaments and biological substances
CPT/HCPCS: 36415; 80048; 82962; 85025; A9270-GY; J0690; J1100; J1170; J1815-GY; J1885; J2001; J2250; J2405; J2704; J3010; J3490; J7120

== ENCOUNTER 2021-06-09 20:37 | Inpatient (IN) | payer MEDICARE, BC ==
[2021-06-09] MEDS ORDERED: Acetaminophen 325 MG Tab PO ONE (21:15)
[2021-06-09] MEDS ORDERED: Sodium Chloride 0.9% 1,000 ML IV ONE (21:15)
[2021-06-09] MEDS ORDERED: Sodium Chloride 0.9% 1,000 ML ONE (21:18)
--- NOTE | 2021-06-09 21:37 | EDM.PDOC ---
<Baldomero Kemp - Last Filed: 06/10/21 08:03> ED HPI GENERAL MEDICAL PROBLEM - General Chief Complaint: General Stated Complaint: WEAK/DEHYDRATED Time Seen by Provider: 06/09/21 21:04 - Related Data Allergies Allergy/AdvReac Type Severity Reaction Status Date / Time No Known Allergies Allergy Verified 06/10/21 19:12 Home Meds: Home Meds Glimepiride 2 mg PO DAILY 03/08/15 [History] Finasteride [Proscar] 5 mg PO DAILY 05/14/18 [History] Insulin Degludec [Tresiba] 24 unit SQ BEDTIME 06/09/21 [History] Carbidopa/Levodopa [Carbidopa-Levodopa 25-250] 1 tab PO DAY 06/10/21 [History] Levothyroxine [Synthroid] 50 mcg PO DAILY 06/10/21 [History] Solifenacin Succinate 10 mg PO DAILY 06/10/21 [History] Tamsulosin [Flomax] 0.4 mg PO BEDTIME 06/10/21 [History] sitaGLIPtin Phos/Metformin HCl [Janumet 50-1,000 MG] 1 each PO BID 06/10/21 [History] #1 Interpretation EKG Date: 06/09/21 Rhythm: NSR Rate (Beats/Min): 92 [place]: Normal P-Wave: Present QRS: Other (Low voltage extremity leads) ST-T: Normal QT: Normal Comparison: NA - No Prior EKG EKG Interpretation Comments: Abnormal EKG Course - Re-Assessments/Exams Free Text/Narrative Re-Assessment/Exam: 06/09/21 22:28 We will likely assume care at change of shift. I did go when to see how the patient was doing. He has not been started on remdesivir or dexamethasone. Apparently the family is somewhat resistant to the remdesivir because of end organ failure. I discussed this with the family and with the significant risk of the patient declining and potentially succumbing from the Covid this is one of the few treatment options we have. I did discuss the situation with the patient's daughter and he is a DO NOT INTUBATE. They want things that are treatable treated but they do not want him on a breathing machine or life support. 06/10/21 06:[address] Rutherford, our hospitalist and we will anticipate admission. Departure - Departure Time of Disposition: 06:47 Disposition: Admitted As Inpatient 65 Clinical Impression: Pneumonia due to COVID-19 virus - Discharge Information <NgDanette malave Javier - Last Filed: 06/12/21 13:20> ED HPI GENERAL MEDICAL PROBLEM - General Source of Information: Reports: Family History Limitations: Reports: No Limitations, Other (Patient only speaks in one- word sentences at a time and is not fully able to interact) - History of Present Illness INITIAL COMMENTS - FREE TEXT/NARRATIVE: 71-year-old male presents the emergency department accompanied by his family. Patient is not interactive with staff. He is lying in bed with his eyes closed and shivering and at times just says help me. Patient's daughter is at the bedside. Per the daughter, she states that the patient's had Covid 2 weeks ago however the patient was never tested. Over the course the past 4 days the patient has not been feeling well. He has been weak and not eating, he has had a cough and a fever at home. He has not had any nausea vomiting however he has had some diarrhea that started today. Family reports that the patient has fallen twice this last week due to increasing generalized weakness. He also has not had much in the way of an appetite. He did not have his Covid vaccine. He does have a history of diabetes takes Tresiba injections twice daily as well as Janumet. 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 Musculoskeletal History: Reports: Arthritis Neurological History: Reports: Parkinson's, Other (See Below) Other Neuro History: back surgery Psychiatric History: Reports: None Endocrine/Metabolic History: Reports: Diabetes, Type II, Hypothyroidism Other Endocrine/Metabolic History: on insulin Hematologic History: Reports: None Immunologic History: Reports: None Oncologic (Cancer) History: Reports: None Dermatologic History: Reports: None - Past Surgical History Head Surgeries/Procedures: Reports: None HEENT Surgical History: Reports: Naso-Sinus Surgery, Other (See Below) Other HEENT Surgeries/Procedures: polyps on vocal cord surgery Cardiovascular Surgical History: Reports: None Respiratory Surgical History: Reports: None GI Surgical History: Reports: Colonoscopy, Hernia, Abdominal, Hernia Repair/Other Male Surgical History: Reports: Lithotripsy ([facility]) Endocrine Surgical History: Reports: None Neurological Surgical History: Reports: None Musculoskeletal Surgical History: Reports: Knee Replacement Oncologic Surgical History: Reports: None Dermatological Surgical History: Reports: None Social & Family History - Family History Family Medical History: No Pertinent Family History - Tobacco Use Tobacco Use Status *Q: Never Tobacco User Second Hand Smoke Exposure: No - Caffeine Use Caffeine Use: Reports: Coffee - Recreational Drug Use Recreational Drug Use: No ED ROS GENERAL - Review of Systems Review Of Systems: Comprehensive ROS is negative, except as noted in HPI. ED EXAM, GENERAL - Physical Exam Exam: See Below Exam Limited By: Other (Patient does not verbally interactive with staff. Patient's daughter is at the bedside answering questions.) General Appearance: WD/WN, Lethargic, Severe Distress Ears: Normal External Exam, Hearing Grossly Normal Nose: Normal Inspection Throat/Mouth: Normal Inspection, Normal Lips, Normal Voice, No Airway Compromise Head: Atraumatic Neck: Normal Inspection, Supple Respiratory/Chest: Respiratory Distress, Crackles (Bilaterally), Accessory Muscle Use Cardiovascular: Normal Peripheral Pulses, Regular Rate, Rhythm, No Edema, No Murmur Peripheral Pulses: 2+: Radial (L), Radial (R) GI/Abdominal: Normal Bowel Sounds, Soft, Non-Tender, No Distention (Male) Exam: Deferred Rectal (Males) Exam: Deferred Back Exam: Normal Inspection Extremities: Normal Inspection, No Pedal Edema Neurological: Disoriented. No: Normal Gait (Patient is unable to walk nursing staff had to assist the patient out of his car and into a wheelchair and into his room.) Skin Exam: Intact, Normal Color, No Rash, Diaphoretic. No: Warm (Skin is hot to touch) Lymphatic: No Adenopathy Course - Vital Signs Text/Narrative:: At the time of my exam, the patient is febrile with a temporal temperature of 101.7, O2 saturations are 83% on room air and he is tachypneic with respiratory rate of 24. Skin is hot to touch. Patient is awake however he repeatedly states, "help me, help me." He is not interactive with me at all. Lung sounds do have crackles noted bilaterally. Abdomen is soft and nontender. Will obtain lab studies to include a CBC, CMP, C-reactive protein, magnesium level, PT/INR, PTT, blood cultures x2 and a lactic acid. Patient will be swabbed for Covid. Will obtain a portable chest x-ray. Patient does fall into sepsis protocol so we will initiate normal saline at 250 mL's per hour. Patient will also receive 975 of Tylenol. Last Recorded V/S: Last Vital Signs Temp 97.5 F 06/12/21 11:54 Pulse 80 06/12/21 11:54 Resp 30 H 06/12/21 11:54 BP 152/66 H 06/12/21 11:54 Pulse Ox 87 L 06/12/21 12:00 - Orders/Labs/Meds Orders: Medication Orders Acetaminophen (Acetaminophen 325 Mg Tab) 650 mg PO Q8H NALDO Al Hydroxide/Mg Hydroxide (Aluminum Hydroxide/Magnesium Hydroxide/Simethicone Susp 30 Ml Cup) 30 ml PO Q4H PRN PRN Reason: Heartburn Albuterol (Albuterol 6.7 Gm Inhaler) 0 gm INH QID PRN PRN Reason: SOB/Wheezing Albuterol/Ipratropium (Albuterol/Ipratropium 3.0-0.5 Mg/3 Ml Neb Soln) 3 ml NEB Q4H PRN PRN Reason: Shortness Of Breath/wheezing Last Admin: 06/12/21 09:34 Dose: 3 ml Documented by: Admin: 06/11/21 19:54 Dose: 3 ml Documented by: Admin: 06/11/21 14:36 Dose: 3 ml Documented by: Admin: 06/11/21 08:13 Dose: 3 ml Documented by: Admin: 06/10/21 23:40 Dose: 3 ml Documented by: MIKE Alogliptin Benzoate (Alogliptin 12.5 Mg Tab) 12.5 mg PO BIDMEALS [facility] Last Admin: 06/12/21 06:20 Dose: 12.5 mg Documented by: Admin: 06/11/21 16:46 Dose: Not Given Documented by: Admin: 06/11/21 15:55 Dose: 12.5 mg Documented by: Admin: 06/11/21 06:06 Dose: 12.5 mg Documented by: ANAID Ascorbic Acid (Ascorbic Acid 500 Mg Tab) 500 mg PO DAILY [facility] Last Admin: 06/12/21 08:58 Dose: 500 mg Documented by: TOMMIE Dexamethasone (Dexamethasone 4 Mg Tab) 6 mg PO DAILY [facility] Stop: 06/18/21 09:01 Last Admin: 06/12/21 08:55 Dose: 6 mg Documented by: Admin: 06/11/21 09:02 Dose: 6 mg Documented by: Admin: 06/10/21 09:52 Dose: 6 mg Documented by: YEHUDA Docusate Sodium (Docusate Sodium 100 Mg Cap) 100 mg PO BID PRN PRN Reason: Constipation Enoxaparin Sodium (Enoxaparin 40 Mg/0.4 Ml Syringe) 40 mg SUBCUT DAILY [facility] Last Admin: 06/12/21 08:58 Dose: 40 mg Documented by: Admin: 06/11/21 09:04 Dose: 40 mg Documented by: Admin: 06/10/21 09:53 Dose: 40 mg Documented by: YEHUDA Finasteride (Finasteride 5 Mg Tab) 5 mg PO DAILY [facility] Last Admin: 06/12/21 08:58 Dose: 5 mg Documented by: Admin: 06/11/21 09:03 Dose: 5 mg Documented by: Admin: 06/10/21 09:51 Dose: 5 mg Documented by: YEHUDA Guaifenesin/Phenylephrine HCl (Guaifenesin/Dextromethorphan 100-10 Mg/5 Ml Soln 5 Ml Cup) 10 ml PO Q6H PRN PRN Reason: Cough Remdesivir 100 mg/ Sodium (Chloride) 100 mls @ 100 mls/hr IV Q24H [facility] Stop: 06/13/21 21:59 Last Admin: 06/11/21 21:21 Dose: 100 mls/hr Documented by: Infusion: 06/10/21 22:04 Dose: 100 mls/hr Documented by: Admin: 06/10/21 21:04 Dose: 100 mls/hr Documented by: ANAID Ceftriaxone Sodium 2 gm/ (Sodium Chloride) 100 mls @ 200 mls/hr IV Q24H [facility] Last Admin: 06/12/21 09:18 Dose: 200 mls/hr Documented by: TOMMIE Azithromycin 500 mg/ Sodium (Chloride) 250 mls @ 250 mls/hr IV Q24H [facility] Last Admin: 06/12/21 07:58 Dose: 250 mls/hr Documented by: TOMMIE Insulin Glargine (Insulin Glargine,Hum.Rec.Anlog 100 Unit/Ml 3 Ml Pen) 32 unit SUBCUT BEDTIME [facility] Insulin Human Regular (Insulin Regular, Human 100 Units/Ml 3 Ml Vial) 0 unit SUBCUT QIDACANDBED [facility]; Protocol Levothyroxine Sodium (Levothyroxine 50 Mcg Tab) 50 mcg PO ACBREAKFAST [facility] Last Admin: 06/12/21 05:09 Dose: 50 mcg Documented by: Admin: 06/11/21 05:29 Dose: 50 mcg Documented by: ANAID Carbidopa/Levodopa 25-250 Tab Own Med 1 tab PO 0600,1100,1500,1900,2300 [facility] Last Admin: 06/12/21 11:48 Dose: 1 tab Documented by: Admin: 06/12/21 06:21 Dose: 1 tab Documented by: Admin: 06/11/21 22:36 Dose: 1 tab Documented by: Admin: 06/11/21 18:01 Dose: 1 tab Documented by: Admin: 06/11/21 15:55 Dose: 1 tab Documented by: Admin: 06/11/21 10:02 Dose: 1 tab Documented by: SANTIAGO Ondansetron HCl (Ondansetron 4 Mg Tab.Dis) 4 mg PO Q4H PRN PRN Reason: nausea, able to take PO Oxycodone HCl (Oxycodone 5 Mg Tab) 5 mg PO Q4H PRN PRN Reason: Pain (moderate 4-6) Last Admin: 06/12/21 12:18 Dose: 5 mg Documented by: Admin: 06/12/21 08:07 Dose: 5 mg Documented by: Admin: 06/12/21 02:38 Dose: 5 mg Documented by: Admin: 06/11/21 16:40 Dose: 5 mg Documented by: Admin: 06/11/21 09:03 Dose: 5 mg Documented by: Admin: 06/11/21 05:30 Dose: 5 mg Documented by: Admin: 06/10/21 21:29 Dose: 5 mg Documented by: Admin: 06/10/21 09:59 Dose: 5 mg Documented by: YEHUDA Sodium Chloride (Sodium Chloride 0.9% 10 Ml Syringe) 10 ml FLUSH ASDIRECTED PRN PRN Reason: Keep Vein Open Last Admin: 06/10/21 00:24 Dose: 10 ml Documented by: Admin: 06/09/21 21:41 Dose: 10 ml Documented by: MARILIN Tamsulosin HCl (Tamsulosin 0.4 Mg Cap.Er) 0.4 mg PO BEDTIME [facility] Last Admin: 06/11/21 21:21 Dose: 0.4 mg Documented by: Admin: 06/10/21 21:00 Dose: 0.4 mg Documented by: ANAID Temazepam (Temazepam 15 Mg Cap) 15 mg PO BEDTIME PRN PRN Reason: Sleep Last Admin: 06/11/21 23:02 Dose: 15 mg Documented by: KATIE Trolamine Salicylate (Trolamine Salicylate/Aloe Vera 10% Crm 85 Gm Tube) 1 gm TOP Q2H PRN PRN Reason: Pain (moderate 4-6) Last Admin: 06/12/21 11:49 Dose: 1 applic Documented by: ALBERTO Trospium (Trospium 20 Mg Tab) 20 mg PO BID [facility] Last Admin: 06/12/21 08:54 Dose: 20 mg Documented by: Admin: 06/11/21 21:21 Dose: 20 mg Documented by: Admin: 06/11/21 09:03 Dose: 20 mg Documented by: SANTIAGO Zinc Sulfate (Zinc Sulfate 220 Mg Cap) 220 mg PO DAILY [facility] Last Admin: 06/12/21 08:58 Dose: 220 mg Documented by: TOMMIE Labs: Laboratory Tests 06/09/21 06/09/21 06/09/21 Range/Units 21:06 21:10 21:10 WBC 7.16 (4.23-9.07) K/mm3 RBC 4.35 L (4.63-6.08) M/mm3 Hgb 13.5 L (13.7-17.5) gm/dl Hct 40.8 (40.1-51.0) % MCV 93.8 H (79.0-92.2) fl MCH 31.0 (25.7-32.2) pg MCHC 33.1 (32.2-35.5) g/dl RDW Std Deviation 47.8 H (35.1-43.9) fL Plt Count 154 L (163-337) K/mm3 MPV 10.8 (9.4-12.3) fl Neut % (Auto) 89.3 H (34.0-67.9) % Lymph % (Auto) 6.7 L (21.8-53.1) % [place] % (Auto) 3.6 L (5.3-12.2) % Eos % (Auto) 0 L (0.8-7.0) Baso % (Auto) 0.3 (0.1-1.2) % Neut # (Auto) 6.39 H (1.78-5.38) K/mm3 Lymph # (Auto) 0.48 L (1.32-3.57) K/mm3 [place] # (Auto) 0.26 L (0.30-0.82) K/mm3 Eos # (Auto) 0.00 L (0.04-0.54) K/mm3 Baso # (Auto) 0.02 (0.01-0.08) K/mm3 Manual Slide Review Abnormal smear PT 11.2 (9.7-12.0) SECONDS INR 1.01 APTT 31.9 H (21.7-31.4) SECONDS D-Dimer, Quantitative 3.58 H (0.19-0.50) mg/L Puncture Site ABG pH (7.35-7.45) ABG pCO2 (35.0-45.0) mmHg ABG pO2 (80.0-100.0) mmHg ABG HCO3 (22.0-26.0) meq/L ABG O2 Saturation (96.0-97.0) % ABG Base Excess (-2-2.0) O2 Delivery Device Oxygen Flow Rate Sodium (136-145) mEq/L Potassium (3.5-5.1) mEq/L Chloride (98-107) mEq/L Carbon Dioxide (21-32) mEq/L Anion Gap (5-15) BUN (7-18) mg/dL Creatinine (0.7-1.3) mg/dL Est Cr Clr Drug Dosing mL/min Estimated GFR (MDRD) (>60) mL/min BUN/Creatinine Ratio (14-18) Glucose (70-99) mg/dL POC Glucose (70-99) mg/dL Lactic Acid (0.4-2.0) mmol/L Calcium (8.5-10.1) mg/dL Magnesium (1.8-2.4) mg/dL Total Bilirubin (0.2-1.0) mg/dL AST (15-37) U/L ALT (16-63) U/L Alkaline Phosphatase (46-116) U/L C-Reactive Protein (<1.0) mg/dL Total Protein (6.4-8.2) g/dl Albumin (3.4-5.0) g/dl Globulin gm/dL Albumin/Globulin Ratio (1-2) SARS-CoV-2 RNA (ROGELIO) Positive H (NEGATIVE) 06/09/21 06/09/21 06/09/21 Range/Units 21:10 21:10 21:16 WBC (4.23-9.07) K/mm3 RBC (4.63-6.08) M/mm3 Hgb (13.7-17.5) gm/dl Hct (40.1-51.0) % MCV (79.0-92.2) fl MCH (25.7-32.2) pg MCHC (32.2-35.5) g/dl RDW Std Deviation (35.1-43.9) fL Plt Count (163-337) K/mm3 MPV (9.4-12.3) fl Neut % (Auto) (34.0-67.9) % Lymph % (Auto) (21.8-53.1) % [place] % (Auto) (5.3-12.2) % Eos % (Auto) (0.8-7.0) Baso % (Auto) (0.1-1.2) % Neut # (Auto) (1.78-5.38) K/mm3 Lymph # (Auto) (1.32-3.57) K/mm3 [place] # (Auto) (0.30-0.82) K/mm3 Eos # (Auto) (0.04-0.54) K/mm3 Baso # (Auto) (0.01-0.08) K/mm3 Manual Slide Review PT (9.7-12.0) SECONDS INR APTT (21.7-31.4) SECONDS D-Dimer, Quantitative (0.19-0.50) mg/L Puncture Site ABG pH (7.35-7.45) ABG pCO2 (35.0-45.0) mmHg ABG pO2 (80.0-100.0) mmHg ABG HCO3 (22.0-26.0) meq/L ABG O2 Saturation (96.0-97.0) % ABG Base Excess (-2-2.0) O2 Delivery Device Oxygen Flow Rate Sodium 138 (136-145) mEq/L Potassium 4.3 (3.5-5.1) mEq/L Chloride 102 (98-107) mEq/L Carbon Dioxide 25 (21-32) mEq/L Anion Gap 15.3 H (5-15) BUN 35 H (7-18) mg/dL Creatinine 1.4 H (0.7-1.3) mg/dL Est Cr Clr Drug Dosing 55.45 mL/min Estimated GFR (MDRD) 50 (>60) mL/min BUN/Creatinine Ratio 25.0 H (14-18) Glucose 287 H (70-99) mg/dL POC Glucose 277 H (70-99) mg/dL Lactic Acid 1.8 (0.4-2.0) mmol/L Calcium 8.7 (8.5-10.1) mg/dL Magnesium 1.8 (1.8-2.4) mg/dL Total Bilirubin 0.6 (0.2-1.0) mg/dL AST 43 H (15-37) U/L ALT 19 (16-63) U/L Alkaline Phosphatase 43 L (46-116) U/L C-Reactive Protein 15.4 H* (<1.0) mg/dL Total Protein 6.9 (6.4-8.2) g/dl Albumin 2.7 L (3.4-5.0) g/dl Globulin 4.2 gm/dL Albumin/Globulin Ratio 0.6 L (1-2) SARS-CoV-2 RNA (ROGELIO) (NEGATIVE) 06/09/21 06/10/21 06/10/21 Range/Units 23:15 00:34 03:00 WBC (4.23-9.07) K/mm3 RBC (4.63-6.08) M/mm3 Hgb (13.7-17.5) gm/dl Hct (40.1-51.0) % MCV (79.0-92.2) fl MCH (25.7-32.2) pg MCHC (32.2-35.5) g/dl RDW Std Deviation (35.1-43.9) fL Plt Count (163-337) K/mm3 MPV (9.4-12.3) fl Neut % (Auto) (34.0-67.9) % Lymph % (Auto) (21.8-53.1) % [place] % (Auto) (5.3-12.2) % Eos % (Auto) (0.8-7.0) Baso % (Auto) (0.1-1.2) % Neut # (Auto) (1.78-5.38) K/mm3 Lymph # (Auto) (1.32-3.57) K/mm3 [place] # (Auto) (0.30-0.82) K/mm3 Eos # (Auto) (0.04-0.54) K/mm3 Baso # (Auto) (0.01-0.08) K/mm3 Manual Slide Review PT (9.7-12.0) SECONDS INR APTT (21.7-31.4) SECONDS D-Dimer, Quantitative (0.19-0.50) mg/L Puncture Site Rt radial ABG pH 7.45 (7.35-7.45) ABG pCO2 35.0 (35.0-45.0) mmHg ABG pO2 73.0 L (80.0-100.0) mmHg ABG HCO3 23.7 (22.0-26.0) meq/L ABG O2 Saturation 94.9 L (96.0-97.0) % ABG Base Excess 0.5 (-2-2.0) O2 Delivery Device Nonrebreather Oxygen Flow Rate 7.0 Sodium (136-145) mEq/L Potassium (3.5-5.1) mEq/L Chloride (98-107) mEq/L Carbon Dioxide (21-32) mEq/L Anion Gap (5-15) BUN (7-18) mg/dL Creatinine (0.7-1.3) mg/dL Est Cr Clr Drug Dosing mL/min Estimated GFR (MDRD) (>60) mL/min BUN/Creatinine Ratio (14-18) Glucose (70-99) mg/dL POC Glucose 242 H 289 H (70-99) mg/dL Lactic Acid (0.4-2.0) mmol/L Calcium (8.5-10.1) mg/dL Magnesium (1.8-2.4) mg/dL Total Bilirubin (0.2-1.0) mg/dL AST (15-37) U/L ALT (16-63) U/L Alkaline Phosphatase (46-116) U/L C-Reactive Protein (<1.0) mg/dL Total Protein (6.4-8.2) g/dl Albumin (3.4-5.0) g/dl Globulin gm/dL Albumin/Globulin Ratio (1-2) SARS-CoV-2 RNA (ROGELIO) (NEGATIVE) 06/10/21 Range/Units 06:37 WBC (4.23-9.07) K/mm3 RBC (4.63-6.08) M/mm3 Hgb (13.7-17.5) gm/dl Hct (40.1-51.0) % MCV (79.0-92.2) fl MCH (25.7-32.2) pg MCHC (32.2-35.5) g/dl RDW Std Deviation (35.1-43.9) fL Plt Count (163-337) K/mm3 MPV (9.4-12.3) fl Neut % (Auto) (34.0-67.9) % Lymph % (Auto) (21.8-53.1) % [place] % (Auto) (5.3-12.2) % Eos % (Auto) (0.8-7.0) Baso % (Auto) (0.1-1.2) % Neut # (Auto) (1.78-5.38) K/mm3 Lymph # (Auto) (1.32-3.57) K/mm3 [place] # (Auto) (0.30-0.82) K/mm3 Eos # (Auto) (0.04-0.54) K/mm3 Baso # (Auto) (0.01-0.08) K/mm3 Manual Slide Review PT (9.7-12.0) SECONDS INR APTT (21.7-31.4) SECONDS D-Dimer, Quantitative (0.19-0.50) mg/L Puncture Site ABG pH (7.35-7.45) ABG pCO2 (35.0-45.0) mmHg ABG pO2 (80.0-100.0) mmHg ABG HCO3 (22.0-26.0) meq/L ABG O2 Saturation (96.0-97.0) % ABG Base Excess (-2-2.0) O2 Delivery Device Oxygen Flow Rate Sodium (136-145) mEq/L Potassium (3.5-5.1) mEq/L Chloride (98-107) mEq/L Carbon Dioxide (21-32) mEq/L Anion Gap (5-15) BUN (7-18) mg/dL Creatinine (0.7-1.3) mg/dL Est Cr Clr Drug Dosing mL/min Estimated GFR (MDRD) (>60) mL/min BUN/Creatinine Ratio (14-18) Glucose (70-99) mg/dL POC Glucose 281 H (70-99) mg/dL Lactic Acid (0.4-2.0) mmol/L Calcium (8.5-10.1) mg/dL Magnesium (1.8-2.4) mg/dL Total Bilirubin (0.2-1.0) mg/dL AST (15-37) U/L ALT (16-63) U/L Alkaline Phosphatase (46-116) U/L C-Reactive Protein (<1.0) mg/dL Total Protein (6.4-8.2) g/dl Albumin (3.4-5.0) g/dl Globulin gm/dL Albumin/Globulin Ratio (1-2) SARS-CoV-2 RNA (ROGELIO) (NEGATIVE) Meds: Medications Generic Name Dose Route Start Last Admin Trade Name Freq PRN Reason Stop Dose Admin Acetaminophen 650 mg 06/12/21 16:00 Acetaminophen 325 Mg Tab PO Q8H NALDO Al Hydroxide/Mg Hydroxide 30 ml 06/11/21 21:37 Aluminum Hydroxide/Magnesium Hydroxide/Simethicone Susp 30 Ml Cup PO Q4H PRN Heartburn Albuterol 0 gm 06/11/21 10:30 Albuterol 6.7 Gm Inhaler INH QID PRN SOB/Wheezing Albuterol/Ipratropium 3 ml 06/10/21 07:45 06/12/21 09:34 Albuterol/Ipratropium 3.0-0.5 Mg/3 Ml Neb Soln NEB 3 ml Q4H PRN Administration Shortness Of Breath/wheezing Alogliptin Benzoate 12.5 mg 06/11/21 07:00 06/12/21 06:20 Alogliptin 12.5 Mg Tab PO 12.5 mg BIDMEALS NALDO Administration Ascorbic Acid 500 mg 06/12/21 09:00 06/12/21 08:58 Ascorbic Acid 500 Mg Tab PO 500 mg DAILY NALDO Administration Dexamethasone 6 mg 06/10/21 09:00 06/12/21 08:55 Dexamethasone 4 Mg Tab PO 06/18/21 09:01 6 mg DAILY NALDO Administration Docusate Sodium 100 mg 06/10/21 07:45 Docusate Sodium 100 Mg Cap PO BID PRN Constipation Enoxaparin Sodium 40 mg 06/10/21 09:00 06/12/21 08:58 Enoxaparin 40 Mg/0.4 Ml Syringe SUBCUT 40 mg DAILY NALDO Administration Finasteride 5 mg 06/10/21 09:00 06/12/21 08:58 Finasteride 5 Mg Tab PO 5 mg DAILY NALDO Administration Guaifenesin/Phenylephrine HCl 10 ml 06/11/21 21:35 Guaifenesin/Dextromethorphan 100-10 Mg/5 Ml Soln 5 Ml Cup PO Q6H PRN Cough Remdesivir 100 mg/ Sodium 100 mls @ 100 mls/hr 06/10/21 21:00 06/11/21 21:21 Chloride IV 06/13/21 21:59 100 mls/hr Q24H NALDO Administration Ceftriaxone Sodium 2 gm/ 100 mls @ 200 mls/hr 06/12/21 09:00 06/12/21 09:18 Sodium Chloride IV 200 mls/hr Q24H NALDO Administration Azithromycin 500 mg/ Sodium 250 mls @ 250 mls/hr 06/12/21 08:00 06/12/21 07:58 Chloride IV 250 mls/hr Q24H NALDO Administration Insulin Glargine 32 unit 06/12/21 21:00 Insulin Glargine,Hum.Rec.Anlog 100 Unit/Ml 3 Ml Pen SUBCUT BEDTIME NALDO Insulin Human Regular 0 unit 06/12/21 17:00 Insulin Regular, Human 100 Units/Ml 3 Ml Vial SUBCUT [facility]ANDBED [facility] Protocol Levothyroxine Sodium 50 mcg 06/11/21 06:00 06/12/21 05:09 Levothyroxine 50 Mcg Tab PO 50 mcg ACBREAKFAST NALDO Administration Carbidopa/Levodopa 1 tab 06/11/21 07:29 06/12/21 11:48 25-250 Tab Own PO 1 tab Med 0600,1100,1500,1900,2300 NALDO Administration Ondansetron HCl 4 mg 06/10/21 07:45 Ondansetron 4 Mg Tab.Dis PO Q4H PRN nausea, able to take PO Oxycodone HCl 5 mg 06/10/21 07:45 06/12/21 12:18 Oxycodone 5 Mg Tab PO 5 mg Q4H PRN Administration Pain (moderate 4-6) Sodium Chloride 10 ml 06/09/21 21:06 06/10/21 00:24 Sodium Chloride 0.9% 10 Ml Syringe FLUSH 10 ml ASDIRECTED PRN Administration Keep Vein Open Tamsulosin HCl 0.4 mg 06/10/21 21:00 06/11/21 21:21 Tamsulosin 0.4 Mg Cap.Er PO 0.4 mg BEDTIME NALDO Administration Temazepam 15 mg 06/10/21 07:45 06/11/21 23:02 Temazepam 15 Mg Cap PO 15 mg BEDTIME PRN Administration Sleep Trolamine Salicylate 1 gm 06/12/21 09:32 06/12/21 11:49 Trolamine Salicylate/Aloe Vera 10% Crm 85 Gm Tube TOP 1 applic Q2H PRN Administration Pain (moderate 4-6) Trospium 20 mg 06/11/21 09:00 06/12/21 08:54 Trospium 20 Mg Tab PO 20 mg BID NALDO Administration Zinc Sulfate 220 mg 06/12/21 09:00 06/12/21 08:58 Zinc Sulfate 220 Mg Cap PO 220 mg DAILY NALDO Administration Discontinued Medications Generic Name Dose Route Start Last Admin Trade Name Freq PRN Reason Stop Dose Admin Acetaminophen 975 mg 06/09/21 21:15 06/09/21 21:41 Acetaminophen 325 Mg Tab PO 06/09/21 21:16 350 mg NOW ONE Administration Acetaminophen 650 mg 06/09/21 21:51 06/09/21 22:30 Acetaminophen 650 Mg Supp RECTAL 06/09/21 21:52 650 mg NOW ONE Administration Acetaminophen 650 mg 06/10/21 07:45 06/12/21 08:10 Acetaminophen 325 Mg Tab PO 650 mg Q4H PRN Administration Pain (Mild 1-3)/fever Acetaminophen 975 mg 06/12/21 14:00 Acetaminophen 325 Mg Tab PO Q8HR NALDO Acetaminophen 650 mg 06/12/21 11:00 06/12/21 11:51 Acetaminophen 325 Mg Tab PO Not Given Q8H NALDO Carbidopa/Levodopa 1 tab 06/10/21 09:00 06/10/21 16:54 Carbidopa/Levodopa 25-100 Mg Tab PO 1 tab QID NALDO Administration Dexamethasone 6 mg 06/10/21 00:52 06/10/21 01:31 Dexamethasone 4 Mg/Ml 5 Ml Mdv IV 06/10/21 00:53 6 mg ONETIME ONE Administration Glimepiride 4 mg 06/10/21 09:00 06/10/21 09:51 Glimepiride 2 Mg Tab PO 4 mg DAILY NALDO Administration Glimepiride 2 mg 06/11/21 07:00 06/11/21 06:05 Glimepiride 2 Mg Tab PO 2 mg WITHBREAKFAST NALDO Administration Sodium Chloride 1,000 mls @ 250 mls/hr 06/09/21 21:15 06/09/21 21:41 Normal Saline IV 06/10/21 01:14 250 mls/hr ONETIME ONE Infusion Sodium Chloride Confirm 06/09/21 21:18 06/10/21 01:11 Normal Saline Administered 06/09/21 21:19 Not Given Dose 1,000 mls @ as directed .ROUTE .STK-MED ONE Remdesivir 200 mg/ Sodium 250 mls @ 250 mls/hr 06/10/21 00:52 06/10/21 01:47 Chloride IV 06/10/21 00:53 250 mls/hr ONETIME ONE Administration Ceftriaxone Sodium 1 gm/ 100 mls @ 200 mls/hr 06/10/21 08:30 06/11/21 09:01 Sodium Chloride IV 200 mls/hr Q24H NALDO Administration Insulin Glargine 24 unit 06/10/21 21:00 Insulin Glarg,Human.Rec.Analog 100 Unit/Ml SUBCUT BEDTIME NALDO Insulin Glargine 24 unit 06/10/21 21:00 06/10/21 21:05 Insulin Glargine,Hum.Rec.Anlog 100 Unit/Ml 3 Ml Pen SUBCUT 24 units BEDTIME NALDO Administration Insulin Glargine 28 unit 06/11/21 21:00 06/11/21 21:21 Insulin Glargine,Hum.Rec.Anlog 100 Unit/Ml 3 Ml Pen SUBCUT 28 units BEDTIME NALDO Administration Insulin Human Isoph/Insulin Regular 0 units 06/10/21 00:09 06/10/21 02:36 Insulin Nph/Insulin Regular,Human 70-30 100 Units/Ml 10 Ml Vial SUBCUT Not Given BIDAC [facility] Protocol Insulin Human Lispro 0 unit 06/10/21 01:14 06/10/21 12:15 Insulin Lispro 100 Unit/Ml 3 Ml Kwikpen SUBCUT Not Given QIDACANDBED [facility] Protocol Insulin Human Regular 0 unit 06/10/21 09:00 06/12/21 09:12 Insulin Regular, Human 100 Units/Ml 3 Ml Vial SUBCUT 6 unit TIDPC [facility] Administration Protocol Iopamidol 100 ml 06/09/21 23:53 06/10/21 00:24 Iopamidol 755 Mg/Ml 100 Ml Bottle IVPUSH 06/09/21 23:54 100 ml ONETIME ONE Administration Metformin HCl 1,000 mg 06/11/21 07:00 06/11/21 06:06 Metformin 500 Mg Tab PO 1,000 mg BIDMEALS NALDO Administration Morphine Sulfate 2 mg 06/10/21 07:45 Morphine 2 Mg/Ml Syringe IVPUSH 06/11/21 07:46 Q2H PRN Pain (severe 7-10) Non-Formulary Medication 24 units 06/10/21 03:45 06/10/21 03:45 Tresiba SQ 06/10/21 03:46 24 units ONETIME ONE Administration Carbidopa/Levodopa 1 tab 06/10/21 23:00 06/11/21 05:29 25-250 Tab Own PO 1 tab Med 0600,1100,1500,1900,2300 NALDO Administration Non-Formulary Medication 1 tab 06/10/21 21:00 Sitagliptin Phos/Metformin Hcl [Janumet 50-1,000 Mg] PO BID NALDO Non-Formulary Medication 1 each 06/11/21 09:00 Non-Formulary Medication 1 Each PO BID NALDO Trospium 10 mg 06/10/21 21:00 06/10/21 21:03 Trospium 20 Mg Tab PO 10 mg BID NALDO Administration - Re-Assessments/Exams Free Text/Narrative Re-Assessment/Exam: 06/09/21 21:43 Portable view of the chest shows scattered areas of infiltrates fairly consistent of Covid pneumonia. Formal radiologist report is pending. 06/09/21 22:14 Hematology reveals a WBC of 7.16, hemoglobin 13.5, hematocrit 40.8, platelet count 154 Chemistry reveals a sodium of 138, potassium 4.3, anion gap 15.3, BUN 35, creatinine 1.4, glucose 287, lactic acid 1.8, magnesium 1.8, AST 43, ALT 19, alk phos 43, C-reactive protein 15.4 Patient is requiring O2 via nonrebreather mask to keep his oxygen saturations greater than 90%. Currently 94%. Discussed the gravity of the patient's situation with patient's daughter. She request that he be a full code. I also did notify her that patient likely would need to be transferred out of this facility. I have ordered for the patient to have a CTA due to elevated D-dimer and low O2 saturations. We will allow him to receive a total of 500 mL of normal saline and then he will be saline locked. 06/09/21 22:46 This patient likely will need to be admitted to the hospital. We do not have any ICU beds available in our facility and patient will likely need ICU. I have called both hospitals in [place] and they do not have any Covid beds available. I then called the [facility] transfer center and they tell me that there are no beds available in the state [facility] at this time. They state they will place the patient on a waiting list for a hospital bed. I have reported off to Dr. Kemp and he will assume care as it is the end of my shift. Sepsis Event Note (ED) - Evaluation Sepsis Screening Result: Possible Sepsis Risk
[2021-06-09] MEDS: Sodium Chloride 0.9% 10 ML Syringe FLUSH PRN (21:41)
[2021-06-09] MEDS ORDERED: Acetaminophen 650 MG Supp RECTAL ONE (21:51)
[2021-06-09] MEDS ORDERED: Iopamidol 755 Mg/ML 100 ML Bottle IVPUSH ONE (23:53)
[2021-06-10] MEDS ORDERED: Insulin NPH/Insulin Regular,Human 70-30 100 Units/ML 10 ML Vial SUBCUT SCH (00:09)
[2021-06-10] MEDS: Sodium Chloride 0.9% 10 ML Syringe FLUSH PRN (00:24)
[2021-06-10] MEDS ORDERED: REMDESIVIR 200 MG in Sodium Chloride 0.9% 250 ML IV ONE (00:52)
[2021-06-10] MEDS ORDERED: Dexamethasone 4 MG/ML 5 ML MDV IV ONE (00:52)
[2021-06-10] MEDS: Insulin Lispro 100 Unit/ML 3 ML KwikPen SUBCUT SCH ×3 (01:31→12:15)
[2021-06-10] MEDS ORDERED: TRESIBA 24 UNIT SQ ONE (03:45)
--- NOTE | 2021-06-10 07:42 | CR ---
Chest: Portable view of the chest was obtained. Comparison: No prior chest imaging is available, subsequent chest CT performed later on the same day. Patchy increased density is seen on both sides of the chest. Heart size and mediastinum are normal. Bony structures show nothing acute. Impression: 1. Diffuse increased density on both sides of the chest suspicious for COVID pneumonia. Diagnostic code #3
[2021-06-10] MEDS ORDERED: Docusate Sodium 100 MG Cap PO PRN (07:45)
[2021-06-10] MEDS ORDERED: Ondansetron 4 MG Tab.DIS PO PRN (07:45)
[2021-06-10] MEDS ORDERED: Morphine 2 MG/ML SYRINGE IVPUSH PRN (07:45)
--- NOTE | 2021-06-10 07:45 | PCM.HP.2 ---
H&P History of Present Illness - General Date of Service: 06/10/21 Admit Problem/Dx: Admission Diagnosis/Problem Admission Diagnosis/Problem acute respiratory failure due to COVID-19 pneumonia. Source of Information: Old Records History Limitations: Reports: Altered Mental Status - History of Present Illness Initial Comments - Free Text/Narative: The patient is a 71-year-old gentleman who was admitted to acute hospitalization secondary to acute respiratory failure due to COVID-19 pneumonia. The patient has some confusion and he is not alert to place or time. He has been unable to participate in his history and physical. Family members are not available. History was obtained through his previous medical records. Initially on presentation to the emergency department the patient was noted to be hypoxic and speaking in 1 word sentences. The patient had been weak and feverish and he had been shaking at one point. He did not have COVID-19 vaccine. The patient has been taking medication for diabetes mellitus and what appears to be Parkinson's disease. Onset of Symptoms: Reports: Unknown/Unsure Duration of Symptoms: Reports: Day(s): Location: Reports: Generalized Severity: Mild Improves with: Reports: None Worsens with: Reports: None Associated Symptoms: Reports: Confusion, Cough Shoulder Pain Score (Numeric/FACES): 5 - Related Data Allergies/Adverse Reactions: Allergies Allergy/AdvReac Type Severity Reaction Status Date / Time Ztlmvjg-WIQ-CzP Reductase Allergy Body Aches Verified 06/09/21 21:00 Inhibitor [Glkepac-Mpx-Tof Reductase Inhibitor] Home Medications: Home Meds Glimepiride 4 mg PO DAILY 03/08/15 [History] Ibuprofen [Motrin] 800 mg PO Q6H PRN 03/08/15 [History] sitaGLIPtin Phos/Metformin HCl [Janumet 50-1,000 MG] 50 - 1,000 mg PO BID [History] Aspirin [Halfprin] 81 mg PO DAILY 05/14/18 [History] Carbidopa/Levodopa [Sinemet 25-100 mg Tablet] 1 tab PO QID 05/14/18 [History] Finasteride [Proscar] 5 mg PO DAILY 05/14/18 [History] Insulin Degludec 28 units SQ DAILY 05/14/18 [History] Levothyroxine [Synthroid] 50 mcg PO DAILY 05/14/18 [History] Oxybutynin Chloride [Ditropan Xl] 10 mg PO DAILY 05/14/18 [History] Solifenacin Succinate [Vesicare] 10 mg PO DAILY 05/14/18 [History] guaiFENesin [Mucinex] 600 mg PO BID PRN 05/14/18 [History] Acetaminophen/HYDROcodone [Knott 325-5 MG] 1 - 2 tab PO Q4H PRN 14 Days #40 tablet 05/15/18 [Rx] Docusate Sodium [Colace] 100 mg PO BID 20 Days #40 cap 05/15/18 [Rx] Ibuprofen 600 mg PO Q6HR PRN 20 Days #90 tablet 05/15/18 [Rx] Hydrocodone/Acetaminophen [Knott 5-325 Tablet] 1 each PO Q6HR PRN #10 tablet 06/11/18 [Rx] Insulin Degludec [Tresiba] 24 unit SQ BEDTIME 06/09/21 [History] Past Medical History HEENT History: Reports: Impaired Vision Other HEENT History: hearing aides and reading glasses Cardiovascular History: Reports: High Cholesterol, Hypertension Respiratory History: Reports: Sleep Apnea, Other (See Below) Other Respiratory History: wear a cpap at night Gastrointestinal History: Reports: None Genitourinary History: Reports: Other (See Below) Other Genitourinary History: kidney calculus, neurogenic bladder, TURP, cystoscopy, lithotripsy GROUND MIXER History: Reports: None Musculoskeletal History: Reports: Arthritis Neurological History: Reports: Parkinson's, Other (See Below) Other Neuro History: back surgery Psychiatric History: Reports: None Endocrine/Metabolic History: Reports: Diabetes, Type II, Hypothyroidism Other Endocrine/Metabolic History: on insulin Hematologic History: Reports: None Immunologic History: Reports: None Oncologic (Cancer) History: Reports: None Dermatologic History: Reports: None - Past Surgical History Head Surgeries/Procedures: Reports: None HEENT Surgical History: Reports: Naso-Sinus Surgery, Other (See Below) Other HEENT Surgeries/Procedures: polyps on vocal cord surgery Cardiovascular Surgical History: Reports: None Respiratory Surgical History: Reports: None GI Surgical History: Reports: Colonoscopy, Hernia, Abdominal, Hernia Repair/Other Male Surgical History: Reports: Lithotripsy ([facility]) Endocrine Surgical History: Reports: None Neurological Surgical History: Reports: None Musculoskeletal Surgical History: Reports: Knee Replacement Oncologic Surgical History: Reports: None Dermatological Surgical History: Reports: None Social & Family History - Family History Family Medical History: No Pertinent Family History - Tobacco Use Tobacco Use Status *Q: Never Tobacco User Second Hand Smoke Exposure: No - Caffeine Use Caffeine Use: Reports: Coffee - Recreational Drug Use Recreational Drug Use: No H&P Review of Systems - Review of Systems: Review Of Systems: Unable To Obtain Reason Not Obtained: Mental confusion, disorientation, altered mental status Exam - Exam Exam: See Below - Vital Signs Vital Signs: Last Vital Signs Temp 38.2 C H 06/09/21 23:00 Pulse 95 06/09/21 20:54 Resp 24 H 06/09/21 20:54 BP 155/82 H 06/09/21 20:54 Pulse Ox 94 L 06/09/21 23:45 Weight: 99.79 kg - Exam Quality Assessment: Supplemental Oxygen, DVT Prophylaxis General: Alert, Cooperative. No: Oriented HEENT: Conjunctiva Clear, EACs Clear, Hearing Intact, PERRLA. No: Mucosa Moist & Foreman (Dry) Neck: Supple, Trachea Midline Lungs: Decreased Breath Sounds, Rales (Globally) Cardiovascular: Regular Rate, Regular Rhythm GI/Abdominal Exam: Normal Bowel Sounds, No Distention (Male) Exam: Deferred Rectal (Males) Exam: Deferred Back Exam: Normal Inspection, Full Range of Motion Extremities: Normal Inspection, No Pedal Edema Skin: Warm, Dry, Intact Neurological: No: Normal Speech (Speaking in short sentences) Neuro Extensive - Mental Status: Alert. No: Oriented x3 Psychiatric: Alert - Patient Data Lab Results Last 24 hrs: Laboratory Results - last 24 hr 06/09/21 06/09/21 06/09/21 Range/Units 21:06 21:10 21:10 WBC 7.16 (4.23-9.07) K/mm3 RBC 4.35 L (4.63-6.08) M/mm3 Hgb 13.5 L (13.7-17.5) gm/dl Hct 40.8 (40.1-51.0) % MCV 93.8 H (79.0-92.2) fl MCH 31.0 (25.7-32.2) pg MCHC 33.1 (32.2-35.5) g/dl RDW Std Deviation 47.8 H (35.1-43.9) fL Plt Count 154 L (163-337) K/mm3 MPV 10.8 (9.4-12.3) fl Neut % (Auto) 89.3 H (34.0-67.9) % Lymph % (Auto) 6.7 L (21.8-53.1) % [place] % (Auto) 3.6 L (5.3-12.2) % Eos % (Auto) 0 L (0.8-7.0) Baso % (Auto) 0.3 (0.1-1.2) % Neut # (Auto) 6.39 H (1.78-5.38) K/mm3 Lymph # (Auto) 0.48 L (1.32-3.57) K/mm3 [place] # (Auto) 0.26 L (0.30-0.82) K/mm3 Eos # (Auto) 0.00 L (0.04-0.54) K/mm3 Baso # (Auto) 0.02 (0.01-0.08) K/mm3 Manual Slide Review Abnormal smear PT 11.2 (9.7-12.0) SECONDS INR 1.01 APTT 31.9 H (21.7-31.4) SECONDS D-Dimer, Quantitative 3.58 H (0.19-0.50) mg/L Puncture Site ABG pH (7.35-7.45) ABG pCO2 (35.0-45.0) mmHg ABG pO2 (80.0-100.0) mmHg ABG HCO3 (22.0-26.0) meq/L ABG O2 Saturation (96.0-97.0) % ABG Base Excess (-2-2.0) O2 Delivery Device Oxygen Flow Rate Sodium (136-145) mEq/L Potassium (3.5-5.1) mEq/L Chloride (98-107) mEq/L Carbon Dioxide (21-32) mEq/L Anion Gap (5-15) BUN (7-18) mg/dL Creatinine (0.7-1.3) mg/dL Est Cr Clr Drug Dosing mL/min Estimated GFR (MDRD) (>60) mL/min BUN/Creatinine Ratio (14-18) Glucose (70-99) mg/dL POC Glucose (70-99) mg/dL Lactic Acid (0.4-2.0) mmol/L Calcium (8.5-10.1) mg/dL Magnesium (1.8-2.4) mg/dL Total Bilirubin (0.2-1.0) mg/dL AST (15-37) U/L ALT (16-63) U/L Alkaline Phosphatase (46-116) U/L C-Reactive Protein (<1.0) mg/dL Total Protein (6.4-8.2) g/dl Albumin (3.4-5.0) g/dl Globulin gm/dL Albumin/Globulin Ratio (1-2) SARS-CoV-2 RNA (ROGELIO) Positive H (NEGATIVE) 06/09/21 06/09/21 06/09/21 Range/Units 21:10 21:10 21:16 WBC (4.23-9.07) K/mm3 RBC (4.63-6.08) M/mm3 Hgb (13.7-17.5) gm/dl Hct (40.1-51.0) % MCV (79.0-92.2) fl MCH (25.7-32.2) pg MCHC (32.2-35.5) g/dl RDW Std Deviation (35.1-43.9) fL Plt Count (163-337) K/mm3 MPV (9.4-12.3) fl Neut % (Auto) (34.0-67.9) % Lymph % (Auto) (21.8-53.1) % [place] % (Auto) (5.3-12.2) % Eos % (Auto) (0.8-7.0) Baso % (Auto) (0.1-1.2) % Neut # (Auto) (1.78-5.38) K/mm3 Lymph # (Auto) (1.32-3.57) K/mm3 [place] # (Auto) (0.30-0.82) K/mm3 Eos # (Auto) (0.04-0.54) K/mm3 Baso # (Auto) (0.01-0.08) K/mm3 Manual Slide Review PT (9.7-12.0) SECONDS INR APTT (21.7-31.4) SECONDS D-Dimer, Quantitative (0.19-0.50) mg/L Puncture Site ABG pH (7.35-7.45) ABG pCO2 (35.0-45.0) mmHg ABG pO2 (80.0-100.0) mmHg ABG HCO3 (22.0-26.0) meq/L ABG O2 Saturation (96.0-97.0) % ABG Base Excess (-2-2.0) O2 Delivery Device Oxygen Flow Rate Sodium 138 (136-145) mEq/L Potassium 4.3 (3.5-5.1) mEq/L Chloride 102 (98-107) mEq/L Carbon Dioxide 25 (21-32) mEq/L Anion Gap 15.3 H (5-15) BUN 35 H (7-18) mg/dL Creatinine 1.4 H (0.7-1.3) mg/dL Est Cr Clr Drug Dosing 55.45 mL/min Estimated GFR (MDRD) 50 (>60) mL/min BUN/Creatinine Ratio 25.0 H (14-18) Glucose 287 H (70-99) mg/dL POC Glucose 277 H (70-99) mg/dL Lactic Acid 1.8 (0.4-2.0) mmol/L Calcium 8.7 (8.5-10.1) mg/dL Magnesium 1.8 (1.8-2.4) mg/dL Total Bilirubin 0.6 (0.2-1.0) mg/dL AST 43 H (15-37) U/L ALT 19 (16-63) U/L Alkaline Phosphatase 43 L (46-116) U/L C-Reactive Protein 15.4 H* (<1.0) mg/dL Total Protein 6.9 (6.4-8.2) g/dl Albumin 2.7 L (3.4-5.0) g/dl Globulin 4.2 gm/dL Albumin/Globulin Ratio 0.6 L (1-2) SARS-CoV-2 RNA (ROGELIO) (NEGATIVE) 06/09/21 06/10/21 06/10/21 Range/Units 23:15 00:34 03:00 WBC (4.23-9.07) K/mm3 RBC (4.63-6.08) M/mm3 Hgb (13.7-17.5) gm/dl Hct (40.1-51.0) % MCV (79.0-92.2) fl MCH (25.7-32.2) pg MCHC (32.2-35.5) g/dl RDW Std Deviation (35.1-43.9) fL Plt Count (163-337) K/mm3 MPV (9.4-12.3) fl Neut % (Auto) (34.0-67.9) % Lymph % (Auto) (21.8-53.1) % [place] % (Auto) (5.3-12.2) % Eos % (Auto) (0.8-7.0) Baso % (Auto) (0.1-1.2) % Neut # (Auto) (1.78-5.38) K/mm3 Lymph # (Auto) (1.32-3.57) K/mm3 [place] # (Auto) (0.30-0.82) K/mm3 Eos # (Auto) (0.04-0.54) K/mm3 Baso # (Auto) (0.01-0.08) K/mm3 Manual Slide Review PT (9.7-12.0) SECONDS INR APTT (21.7-31.4) SECONDS D-Dimer, Quantitative (0.19-0.50) mg/L Puncture Site Rt radial ABG pH 7.45 (7.35-7.45) ABG pCO2 35.0 (35.0-45.0) mmHg ABG pO2 73.0 L (80.0-100.0) mmHg ABG HCO3 23.7 (22.0-26.0) meq/L ABG O2 Saturation 94.9 L (96.0-97.0) % ABG Base Excess 0.5 (-2-2.0) O2 Delivery Device Nonrebreather Oxygen Flow Rate 7.0 Sodium (136-145) mEq/L Potassium (3.5-5.1) mEq/L Chloride (98-107) mEq/L Carbon Dioxide (21-32) mEq/L Anion Gap (5-15) BUN (7-18) mg/dL Creatinine (0.7-1.3) mg/dL Est Cr Clr Drug Dosing mL/min Estimated GFR (MDRD) (>60) mL/min BUN/Creatinine Ratio (14-18) Glucose (70-99) mg/dL POC Glucose 242 H 289 H (70-99) mg/dL Lactic Acid (0.4-2.0) mmol/L Calcium (8.5-10.1) mg/dL Magnesium (1.8-2.4) mg/dL Total Bilirubin (0.2-1.0) mg/dL AST (15-37) U/L ALT (16-63) U/L Alkaline Phosphatase (46-116) U/L C-Reactive Protein (<1.0) mg/dL Total Protein (6.4-8.2) g/dl Albumin (3.4-5.0) g/dl Globulin gm/dL Albumin/Globulin Ratio (1-2) SARS-CoV-2 RNA (ROGELIO) (NEGATIVE) 06/10/21 Range/Units 06:37 WBC (4.23-9.07) K/mm3 RBC (4.63-6.08) M/mm3 Hgb (13.7-17.5) gm/dl Hct (40.1-51.0) % MCV (79.0-92.2) fl MCH (25.7-32.2) pg MCHC (32.2-35.5) g/dl RDW Std Deviation (35.1-43.9) fL Plt Count (163-337) K/mm3 MPV (9.4-12.3) fl Neut % (Auto) (34.0-67.9) % Lymph % (Auto) (21.8-53.1) % [place] % (Auto) (5.3-12.2) % Eos % (Auto) (0.8-7.0) Baso % (Auto) (0.1-1.2) % Neut # (Auto) (1.78-5.38) K/mm3 Lymph # (Auto) (1.32-3.57) K/mm3 [place] # (Auto) (0.30-0.82) K/mm3 Eos # (Auto) (0.04-0.54) K/mm3 Baso # (Auto) (0.01-0.08) K/mm3 Manual Slide Review PT (9.7-12.0) SECONDS INR APTT (21.7-31.4) SECONDS D-Dimer, Quantitative (0.19-0.50) mg/L Puncture Site ABG pH (7.35-7.45) ABG pCO2 (35.0-45.0) mmHg ABG pO2 (80.0-100.0) mmHg ABG HCO3 (22.0-26.0) meq/L ABG O2 Saturation (96.0-97.0) % ABG Base Excess (-2-2.0) O2 Delivery Device Oxygen Flow Rate Sodium (136-145) mEq/L Potassium (3.5-5.1) mEq/L Chloride (98-107) mEq/L Carbon Dioxide (21-32) mEq/L Anion Gap (5-15) BUN (7-18) mg/dL Creatinine (0.7-1.3) mg/dL Est Cr Clr Drug Dosing mL/min Estimated GFR (MDRD) (>60) mL/min BUN/Creatinine Ratio (14-18) Glucose (70-99) mg/dL POC Glucose 281 H (70-99) mg/dL Lactic Acid (0.4-2.0) mmol/L Calcium (8.5-10.1) mg/dL Magnesium (1.8-2.4) mg/dL Total Bilirubin (0.2-1.0) mg/dL AST (15-37) U/L ALT (16-63) U/L Alkaline Phosphatase (46-116) U/L C-Reactive Protein (<1.0) mg/dL Total Protein (6.4-8.2) g/dl Albumin (3.4-5.0) g/dl Globulin gm/dL Albumin/Globulin Ratio (1-2) SARS-CoV-2 RNA (ROGELIO) (NEGATIVE) Result Diagrams: 06/09/21 21:10 06/09/21 21:10 Sepsis Event Note - Evaluation Sepsis Screening Result: Possible Sepsis Risk - Focused Exam Vital Signs: Vital Signs Temp Temp Pulse Resp BP Pulse Ox Pulse Ox 06/09/21 23:45 06/09/21 23:15 06/09/21 23:00 38.2 C H 06/09/21 22:30 38.8 C H 06/09/21 21:41 38.8 C H 06/09/21 21:15 06/09/21 21:00 87 L 06/09/21 20:54 38.7 C H 95 24 H 155/82 H 83 L Pulse Ox Pulse Ox 06/09/21 23:45 94 L 06/09/21 23:15 93 L 06/09/21 23:00 06/09/21 22:30 06/09/21 21:41 06/09/21 21:15 90 L 06/09/21 21:00 06/09/21 20:54 - Problem List (1) Acute respiratory failure due to COVID-19 SNOMED Code(s): 486147653 ICD Code: U07.1 - COVID-19; J96.00 - ACUTE RESPIRATORY FAILURE, UNSP W HYPOXIA OR HYPERCAPNIA Status: Acute Priority: High Current Visit: Yes (2) Pneumonia due to COVID-19 virus SNOMED Code(s): 661691912297727721 ICD Code: U07.1 - COVID-19; J12.82 - PNEUMONIA DUE TO CORONAVIRUS DISEASE 2019 Status: Acute Priority: High Current Visit: Yes (3) Diabetes mellitus type 2 in nonobese SNOMED Code(s): 791639794 ICD Code: E11.9 - TYPE 2 DIABETES MELLITUS WITHOUT COMPLICATIONS Status: Chronic Priority: High Current Visit: Yes (4) Parkinson's disease dementia SNOMED Code(s): 251955658780729 ICD Code: G20 - PARKINSON'S DISEASE; F02.80 - DEMENTIA IN OTH DISEASES CLASSD ELSWHR W/O BEHAVRL DISTURB Status: Chronic Priority: High Current Visit: Yes Qualifiers: Dementia behavioral disturbance: without behavioral disturbance Qualified Code(s): G20 - Parkinson's disease; F02.80 - Dementia in other diseases classified elsewhere without behavioral disturbance Problem List Initiated/Reviewed/Updated: Yes Orders Last 24hrs: Active Orders 24 hr Category Date Time Status Admission Status [Patient Status] [ADT] Routine ADT 06/10/21 07:22 Active Blood Glucose Check, Bedside [RC] WITHMEALSANDBED Care 06/10/21 00:15 Active Ang Chest [CT] Stat Exams 06/10/21 00:01 Taken BLOOD CULTURE [MREF] Stat Lab 06/09/21 21:10 Received BLOOD CULTURE [MREF] Stat Lab 06/09/21 21:21 Received Carbidopa/Levodopa [Sinemet 25-100 mg] Med 06/10/21 09:00 Active 1 tab PO QID Finasteride [Proscar] Med 06/10/21 09:00 Active 5 mg PO DAILY Glimepiride [Amaryl] Med 06/10/21 09:00 Active 4 mg PO DAILY Insulin Glarg,Human.Rec.Analog [LantUS] Med 06/10/21 21:00 Active 24 unit SUBCUT BEDTIME Insulin Lispro [HumaLOG] Med 06/10/21 01:14 Active See Protocol SUBCUT QIDACANDBED Sodium Chloride 0.9% [Saline Flush] Med 06/09/21 21:06 Active 10 ml FLUSH ASDIRECTED PRN Blood Culture x2 Reflex Set [OM.PC] Stat Oth 06/09/21 21:06 Ordered Saline Lock Insert [OM.PC] Stat Oth 06/09/21 21:06 Ordered Code Status [Resuscitation Status] Stat Resus Stat 06/09/21 22:07 Ordered Medication Orders Carbidopa/Levodopa (Carbidopa/Levodopa 25-100 Mg Tab) 1 tab PO QID NALDO Finasteride (Finasteride 5 Mg Tab) 5 mg PO DAILY NALDO Glimepiride (Glimepiride 2 Mg Tab) 4 mg PO DAILY [facility] Insulin Glargine (Insulin Glarg,Human.Rec.Analog 100 Unit/Ml) 24 unit SUBCUT BEDTIME NALDO Insulin Human Lispro (Insulin Lispro 100 Unit/Ml 3 Ml Kwikpen) 0 unit SUBCUT QIDACANDBED NALDO; Protocol Last Admin: 06/10/21 06:44 Dose: 3 unit Documented by: [id number] Admin: 06/10/21 01:31 Dose: 2 unit Documented by: [id number] Sodium Chloride (Sodium Chloride 0.9% 10 Ml Syringe) 10 ml FLUSH ASDIRECTED PRN PRN Reason: Keep Vein Open Last Admin: 06/10/21 00:24 Dose: 10 ml Documented by: [id number] Admin: 06/09/21 21:41 Dose: 10 ml Documented by: [id number] Assessment/Plan Comment:: The patient is a 71-year-old gentleman who has been admitted to acute hospitalization secondary to pneumonia associated with COVID-19. The patient has been started on dexamethasone 6 mg p.o. daily. The patient also has been started on remdesivir 100 mg IV daily as he was given 200 mg IV in the emergency department. The patient will be kept on carb constant diet and Accu-Cheks before meals and at bedtime. He is on insulin sliding scale low-dose. The patient has a history of what appears to be Parkinson's dementia and he is also on carbidopa/levodopa and this has been continued as a part of his home medications. The patient's DVT prophylaxis will be the use of Lovenox 40 mg subcutaneous daily. Oxygen will be titrated to keep his saturations around 92%. Repeat laboratory studies have been ordered. PT OT also has been ordered for the patient. Because of the patient's comorbidities and his COVID-19 pneumonia his overall prognosis is poor. - Mortality Measure Prognosis:: Poor
[2021-06-10] MEDS ORDERED: cefTRIAXone 1 GM in Sodium Chloride 0.9% 100 ML IV SCH (08:00)
--- NOTE | 2021-06-10 08:15 | CT ---
CT chest Technique: Multiple axial sections through the chest were obtained. Intravenous contrast was utilized. Study has been performed as a pulmonary angiogram protocol. Findings: Pulmonary arteries are fairly well opacified. No filling defects are seen to indicate pulmonary embolism. Thoracic aorta shows atherosclerotic change with no aneurysm. No pericardial thickening is seen. Coronary artery calcification is noted. Nonobstructing calculi are seen within the kidneys. Abdominal aorta shows no aneurysm as visualized. Lung window settings were reviewed. Scattered areas of increased density are noted within both sides of the chest which are felt compatible with COVID pneumonia. No pleural effusions are seen. Bone window settings were reviewed. Mild scattered degenerative change is seen within the spine with disc space narrowing and endplate spurring. No acute osseous abnormality is appreciated. Impression: 1. No findings of pulmonary embolism. 2. Diffuse increased density within both lungs compatible with fairly severe COVID pneumonia. Diagnostic code #3 I agree with preliminary report from [facility], finalized on 06/10/21, 2:11 AM CDT, code 1
[2021-06-10] MEDS ORDERED: Glimepiride 2 MG Tab PO SCH (09:00)
[2021-06-10] MEDS: Finasteride 5 MG Tab PO SCH (09:51)
[2021-06-10] MEDS: Carbidopa/Levodopa 25-100 MG Tab PO SCH ×3 (09:52→16:54)
[2021-06-10] MEDS: Dexamethasone 4 MG Tab PO SCH (09:52)
[2021-06-10] MEDS: Enoxaparin 40 MG/0.4 ML Syringe SUBCUT SCH (09:53)
[2021-06-10] MEDS: cefTRIAXone 1 GM in Sodium Chloride 0.9% 100 ML IV SCH (09:53)
[2021-06-10] MEDS: Acetaminophen 325 MG Tab PO PRN ×2 (09:54→23:27)
[2021-06-10] MEDS: oxyCODONE 5 MG Tab PO PRN ×2 (09:59→21:29)
[2021-06-10] MEDS: Insulin Regular, Human 100 Units/ML 3 ML Vial SUBCUT SCH ×3 (12:10→19:04)
[2021-06-10] MEDS ORDERED: Insulin Glargine,Hum.Rec.Anlog 100 UNIT/ML 3 ML Pen SUBCUT SCH (21:00)
[2021-06-10] MEDS: Tamsulosin 0.4 MG Cap.ER PO SCH (21:00)
[2021-06-10] MEDS ORDERED: Non-Formulary Medication 1 Each (Sitagliptin Phos/Metformin Hcl [Janumet 50-1,000 Mg] 1 EA PO SCH (21:00)
[2021-06-10] MEDS ORDERED: Insulin Glarg,Human.Rec.Analog 100 Unit/ML SUBCUT SCH (21:00)
[2021-06-10] MEDS ORDERED: Trospium 20 MG Tab PO SCH (21:00)
[2021-06-10] MEDS: REMDESIVIR 100 MG in Sodium Chloride 0.9% 100 ML IV SCH (21:04)
[2021-06-10] MEDS: LEVODOPA PO SCH (22:38)
[2021-06-10] MEDS: CARBIDOPA PO SCH (22:38)
[2021-06-10] MEDS: Temazepam 15 MG Cap PO PRN (23:28)
[2021-06-10] MEDS: Albuterol/Ipratropium 3.0-0.5 MG/3 ML Neb Soln NEB PRN (23:40)
[2021-06-11] MEDS: Levothyroxine 50 MCG Tab PO SCH (05:29)
[2021-06-11] MEDS: CARBIDOPA PO SCH ×5 (05:29→22:36)
[2021-06-11] MEDS: LEVODOPA PO SCH ×5 (05:29→22:36)
[2021-06-11] MEDS: oxyCODONE 5 MG Tab PO PRN ×3 (05:30→16:40)
[2021-06-11] MEDS ORDERED: metFORMIN 500 MG Tab PO SCH (07:00)
[2021-06-11] MEDS ORDERED: Glimepiride 2 MG Tab PO SCH (07:00)
[2021-06-11] MEDS: Albuterol/Ipratropium 3.0-0.5 MG/3 ML Neb Soln NEB PRN ×3 (08:13→19:54)
--- NOTE | 2021-06-11 08:23 | PCM.PN ---
- General Info Date of Service: 06/11/21 Admission Dx/Problem (Free Text): Admission Diagnosis/Problem Admission Diagnosis/Problem acute respiratory failure due to COVID-19 pneumonia. Functional Status: Reports: Pain Controlled, Tolerating Diet, Ambulating, Urinating. Denies: New Symptoms - Review of Systems General: Reports: Weakness, Fatigue, Malaise. Denies: Fever, Chills HEENT: Reports: No Symptoms. Denies: Headaches, Sore Throat Pulmonary: Reports: Shortness of Breath, Pleuritic Chest Pain, Cough. Denies: Sputum Cardiovascular: Reports: No Symptoms, Dyspnea on Exertion. Denies: Chest Pain, Palpitations Gastrointestinal: Reports: No Symptoms. Denies: Abdominal Pain, Constipation, Diarrhea, Nausea, Vomiting Genitourinary: Reports: No Symptoms. Denies: Pain Musculoskeletal: Reports: No Symptoms Skin: Reports: No Symptoms. Denies: Cyanosis Neurological: Reports: Confusion, Pre-Existing Deficit (Parkinsons ), Difficulty Walking, Weakness, Gait Disturbance. Denies: Dizziness, Headache, Numbness, Syncope, Tingling Psychiatric: Reports: No Symptoms - Patient Data Vitals - Most Recent: Last Vital Signs Temp 97.0 F 06/11/21 04:30 Pulse 70 06/11/21 04:30 Resp 21 H 06/11/21 04:35 BP 129/54 L 06/11/21 04:30 Pulse Ox 91 L 06/11/21 04:35 Weight - Most Recent: 240 lb 12.8 oz I&O - Last 24 Hours: Intake & Output 06/10/21 06/11/21 06/11/21 22:59 06:59 14:59 Intake Total 175 1700 Balance 175 1700 Lab Results Last 24 Hours: Laboratory Results - last 24 hr 06/10/21 06/10/21 06/10/21 Range/Units 11:23 15:24 18:56 WBC (4.23-9.07) K/mm3 RBC (4.63-6.08) M/mm3 Hgb (13.7-17.5) gm/dl Hct (40.1-51.0) % MCV (79.0-92.2) fl MCH (25.7-32.2) pg MCHC (32.2-35.5) g/dl RDW Std Deviation (35.1-43.9) fL Plt Count (163-337) K/mm3 MPV (9.4-12.3) fl Neut % (Auto) (34.0-67.9) % Lymph % (Auto) (21.8-53.1) % [place] % (Auto) (5.3-12.2) % Eos % (Auto) (0.8-7.0) Baso % (Auto) (0.1-1.2) % Neut # (Auto) (1.78-5.38) K/mm3 Lymph # (Auto) (1.32-3.57) K/mm3 [place] # (Auto) (0.30-0.82) K/mm3 Eos # (Auto) (0.04-0.54) K/mm3 Baso # (Auto) (0.01-0.08) K/mm3 Manual Slide Review D-Dimer, Quantitative (0.19-0.50) mg/L Sodium (136-145) mEq/L Potassium (3.5-5.1) mEq/L Chloride (98-107) mEq/L Carbon Dioxide (21-32) mEq/L Anion Gap (5-15) BUN (7-18) mg/dL Creatinine (0.7-1.3) mg/dL Est Cr Clr Drug Dosing mL/min Estimated GFR (MDRD) (>60) mL/min BUN/Creatinine Ratio (14-18) Glucose (70-99) mg/dL POC Glucose 309 H 285 H 345 H (70-99) mg/dL Calcium (8.5-10.1) mg/dL Magnesium (1.8-2.4) mg/dL Total Bilirubin (0.2-1.0) mg/dL AST (15-37) U/L ALT (16-63) U/L Alkaline Phosphatase (46-116) U/L C-Reactive Protein (<1.0) mg/dL Total Protein (6.4-8.2) g/dl Albumin (3.4-5.0) g/dl Globulin gm/dL Albumin/Globulin Ratio (1-2) 06/10/21 06/11/21 06/11/21 Range/Units 20:15 06:02 06:35 WBC 7.26 (4.23-9.07) K/mm3 RBC 4.13 L (4.63-6.08) M/mm3 Hgb 12.7 L (13.7-17.5) gm/dl Hct 39.6 L (40.1-51.0) % MCV 95.9 H (79.0-92.2) fl MCH 30.8 (25.7-32.2) pg MCHC 32.1 L (32.2-35.5) g/dl RDW Std Deviation 49.0 H (35.1-43.9) fL Plt Count 178 (163-337) K/mm3 MPV 10.7 (9.4-12.3) fl Neut % (Auto) 89.8 H (34.0-67.9) % Lymph % (Auto) 6.6 L (21.8-53.1) % [place] % (Auto) 3.2 L (5.3-12.2) % Eos % (Auto) 0 L (0.8-7.0) Baso % (Auto) 0.1 (0.1-1.2) % Neut # (Auto) 6.52 H (1.78-5.38) K/mm3 Lymph # (Auto) 0.48 L (1.32-3.57) K/mm3 [place] # (Auto) 0.23 L (0.30-0.82) K/mm3 Eos # (Auto) 0.00 L (0.04-0.54) K/mm3 Baso # (Auto) 0.01 (0.01-0.08) K/mm3 Manual Slide Review Abnormal smear D-Dimer, Quantitative (0.19-0.50) mg/L Sodium (136-145) mEq/L Potassium (3.5-5.1) mEq/L Chloride (98-107) mEq/L Carbon Dioxide (21-32) mEq/L Anion Gap (5-15) BUN (7-18) mg/dL Creatinine (0.7-1.3) mg/dL Est Cr Clr Drug Dosing mL/min Estimated GFR (MDRD) (>60) mL/min BUN/Creatinine Ratio (14-18) Glucose (70-99) mg/dL POC Glucose 298 H 237 H (70-99) mg/dL Calcium (8.5-10.1) mg/dL Magnesium (1.8-2.4) mg/dL Total Bilirubin (0.2-1.0) mg/dL AST (15-37) U/L ALT (16-63) U/L Alkaline Phosphatase (46-116) U/L C-Reactive Protein (<1.0) mg/dL Total Protein (6.4-8.2) g/dl Albumin (3.4-5.0) g/dl Globulin gm/dL Albumin/Globulin Ratio (1-2) 06/11/21 06/11/21 Range/Units 06:35 06:35 WBC (4.23-9.07) K/mm3 RBC (4.63-6.08) M/mm3 Hgb (13.7-17.5) gm/dl Hct (40.1-51.0) % MCV (79.0-92.2) fl MCH (25.7-32.2) pg MCHC (32.2-35.5) g/dl RDW Std Deviation (35.1-43.9) fL Plt Count (163-337) K/mm3 MPV (9.4-12.3) fl Neut % (Auto) (34.0-67.9) % Lymph % (Auto) (21.8-53.1) % [place] % (Auto) (5.3-12.2) % Eos % (Auto) (0.8-7.0) Baso % (Auto) (0.1-1.2) % Neut # (Auto) (1.78-5.38) K/mm3 Lymph # (Auto) (1.32-3.57) K/mm3 [place] # (Auto) (0.30-0.82) K/mm3 Eos # (Auto) (0.04-0.54) K/mm3 Baso # (Auto) (0.01-0.08) K/mm3 Manual Slide Review D-Dimer, Quantitative 2.61 H (0.19-0.50) mg/L Sodium 138 (136-145) mEq/L Potassium 4.5 (3.5-5.1) mEq/L Chloride 103 (98-107) mEq/L Carbon Dioxide 26 (21-32) mEq/L Anion Gap 13.5 (5-15) BUN 31 H (7-18) mg/dL Creatinine 1.0 (0.7-1.3) mg/dL Est Cr Clr Drug Dosing 77.63 mL/min Estimated GFR (MDRD) > 60 (>60) mL/min BUN/Creatinine Ratio 31.0 H (14-18) Glucose 281 H (70-99) mg/dL POC Glucose (70-99) mg/dL Calcium 8.0 L (8.5-10.1) mg/dL Magnesium 2.2 (1.8-2.4) mg/dL Total Bilirubin 0.4 (0.2-1.0) mg/dL AST 32 (15-37) U/L ALT 9 L (16-63) U/L Alkaline Phosphatase 40 L (46-116) U/L C-Reactive Protein 12.0 H* (<1.0) mg/dL Total Protein 5.9 L (6.4-8.2) g/dl Albumin 2.3 L (3.4-5.0) g/dl Globulin 3.6 gm/dL Albumin/Globulin Ratio 0.6 L (1-2) Med Orders - Current: Current Medications Acetaminophen (Acetaminophen 325 Mg Tab) 650 mg PO Q4H PRN PRN Reason: Pain (Mild 1-3)/fever Last Admin: 06/10/21 23:27 Dose: 650 mg Documented by: Albuterol/Ipratropium (Albuterol/Ipratropium 3.0-0.5 Mg/3 Ml Neb Soln) 3 ml NEB Q4H PRN PRN Reason: Shortness Of Breath/wheezing Last Admin: 06/11/21 08:13 Dose: 3 ml Documented by: Alogliptin Benzoate (Alogliptin 12.5 Mg Tab) 12.5 mg PO BIDMEALS [facility] Last Admin: 06/11/21 06:06 Dose: 12.5 mg Documented by: Dexamethasone (Dexamethasone 4 Mg Tab) 6 mg PO DAILY [facility] Last Admin: 06/10/21 09:52 Dose: 6 mg Documented by: Docusate Sodium (Docusate Sodium 100 Mg Cap) 100 mg PO BID PRN PRN Reason: Constipation Enoxaparin Sodium (Enoxaparin 40 Mg/0.4 Ml Syringe) 40 mg SUBCUT DAILY [facility] Last Admin: 06/10/21 09:53 Dose: 40 mg Documented by: Finasteride (Finasteride 5 Mg Tab) 5 mg PO DAILY [facility] Last Admin: 06/10/21 09:51 Dose: 5 mg Documented by: Glimepiride (Glimepiride 2 Mg Tab) 2 mg PO WITHBREAKFAST [facility] Last Admin: 06/11/21 06:05 Dose: 2 mg Documented by: Remdesivir 100 mg/ Sodium (Chloride) 100 mls @ 100 mls/hr IV Q24H [facility] Stop: 06/13/21 21:59 Last Admin: 06/10/21 21:04 Dose: 100 mls/hr Documented by: Ceftriaxone Sodium 1 gm/ (Sodium Chloride) 100 mls @ 200 mls/hr IV Q24H [facility] Last Admin: 06/10/21 09:53 Dose: 200 mls/hr Documented by: Insulin Glargine (Insulin Glargine,Hum.Rec.Anlog 100 Unit/Ml 3 Ml Pen) 24 unit SUBCUT BEDTIME [facility] Last Admin: 06/10/21 21:05 Dose: 24 units Documented by: Insulin Human Regular (Insulin Regular, Human 100 Units/Ml 3 Ml Vial) [facility]; Protocol Last Admin: 06/10/21 19:04 Dose: 12 unit Documented by: Levothyroxine Sodium (Levothyroxine 50 Mcg Tab) 50 mcg PO ACBREAKFAST [facility] Last Admin: 06/11/21 05:29 Dose: 50 mcg Documented by: Metformin HCl (Metformin 500 Mg Tab) 1,000 mg PO BIDMEALS [facility] Last Admin: 06/11/21 06:06 Dose: 1,000 mg Documented by: Carbidopa/Levodopa 25-250 Tab Own Med 1 tab PO 0600,1100,1500,1900,2300 [facility] Ondansetron HCl (Ondansetron 4 Mg Tab.Dis) 4 mg PO Q4H PRN PRN Reason: nausea, able to take PO Oxycodone HCl (Oxycodone 5 Mg Tab) 5 mg PO Q4H PRN PRN Reason: Pain (moderate 4-6) Last Admin: 06/11/21 05:30 Dose: 5 mg Documented by: Sodium Chloride (Sodium Chloride 0.9% 10 Ml Syringe) 10 ml FLUSH ASDIRECTED PRN PRN Reason: Keep Vein Open Last Admin: 06/10/21 00:24 Dose: 10 ml Documented by: Tamsulosin HCl (Tamsulosin 0.4 Mg Cap.Er) 0.4 mg PO BEDTIME [facility] Last Admin: 06/10/21 21:00 Dose: 0.4 mg Documented by: Temazepam (Temazepam 15 Mg Cap) 15 mg PO BEDTIME PRN PRN Reason: Sleep Trospium (Trospium 20 Mg Tab) 10 mg PO BID [facility] Last Admin: 06/10/21 21:03 Dose: 10 mg Documented by: Discontinued Medications Acetaminophen (Acetaminophen 325 Mg Tab) 975 mg PO NOW ONE Stop: 06/09/21 21:16 Last Admin: 06/09/21 21:41 Dose: 350 mg Documented by: Acetaminophen (Acetaminophen 650 Mg Supp) 650 mg RECTAL NOW ONE Stop: 06/09/21 21:52 Last Admin: 06/09/21 22:30 Dose: 650 mg Documented by: Carbidopa/Levodopa (Carbidopa/Levodopa 25-100 Mg Tab) 1 tab PO QID [facility] Last Admin: 06/10/21 16:54 Dose: 1 tab Documented by: Dexamethasone (Dexamethasone 4 Mg/Ml 5 Ml Mdv) 6 mg IV ONETIME ONE Stop: 06/10/21 00:53 Last Admin: 06/10/21 01:31 Dose: 6 mg Documented by: Glimepiride (Glimepiride 2 Mg Tab) 4 mg PO DAILY [facility] Last Admin: 06/10/21 09:51 Dose: 4 mg Documented by: Sodium Chloride (Normal Saline) 1,000 mls @ 250 mls/hr IV ONETIME ONE Stop: 06/10/21 01:14 Last Infusion: 06/09/21 21:41 Dose: 250 mls/hr Documented by: Sodium Chloride (Normal Saline) Confirm Administered Dose 1,000 mls @ as directed .ROUTE .STK-MED ONE Stop: 06/09/21 21:19 Last Admin: 06/10/21 01:11 Dose: Not Given Documented by: Remdesivir 200 mg/ Sodium (Chloride) 250 mls @ 250 mls/hr IV ONETIME ONE Stop: 06/10/21 00:53 Last Admin: 06/10/21 01:47 Dose: 250 mls/hr Documented by: Insulin Glargine (Insulin Glarg,Human.Rec.Analog 100 Unit/Ml) 24 unit SUBCUT BEDTIME [facility] Insulin Human Isoph/Insulin Regular (Insulin Nph/Insulin Regular,Human 70-30 100 Units/Ml 10 Ml Vial) 0 units SUBCUT BIDAC [facility]; Protocol Last Admin: 06/10/21 02:36 Dose: Not Given Documented by: Insulin Human Lispro (Insulin Lispro 100 Unit/Ml 3 Ml Kwikpen) 0 unit SUBCUT QIDACANDBED [facility]; Protocol Last Admin: 06/10/21 12:15 Dose: Not Given Documented by: Iopamidol (Iopamidol 755 Mg/Ml 100 Ml Bottle) 100 ml IVPUSH ONETIME ONE Stop: 06/09/21 23:54 Last Admin: 06/10/21 00:24 Dose: 100 ml Documented by: Morphine Sulfate (Morphine 2 Mg/Ml Syringe) 2 mg IVPUSH Q2H PRN PRN Reason: Pain (severe 7-10) Stop: 06/11/21 07:46 Non-Formulary Medication (Tresiba) 24 units SQ ONETIME ONE Stop: 06/10/21 03:46 Last Admin: 06/10/21 03:45 Dose: 24 units Documented by: Carbidopa/Levodopa 25-250 Tab Own Med 1 tab PO 0600,1100,1500,1900,2300 [facility] Last Admin: 06/11/21 05:29 Dose: 1 tab Documented by: Non-Formulary Medication (Sitagliptin Phos/Metformin Hcl [Janumet 50-1,000 Mg]) 1 tab PO BID [facility] Non-Formulary Medication (Non-Formulary Medication 1 Each) 1 each PO BID [facility] - Exam Quality Assessment: Supplemental Oxygen (7L), DVT Prophylaxis. No: Urine Catheter General: Alert, Oriented (Mostly ), Cooperative, No Acute Distress HEENT: Pupils Equal, Pupils Reactive, Mucous Membr. Moist/[place] Neck: Supple, Trachea Midline Lungs: Normal Respiratory Effort, Decreased Breath Sounds, Crackles Cardiovascular: Regular Rate, Regular Rhythm GI/Abdominal Exam: Normal Bowel Sounds, Soft, Non-Tender, No Distention (Male) Exam: Deferred Back Exam: Normal Inspection, Decreased Range of Motion Extremities: Normal Inspection, Non-Tender, No Pedal Edema, Normal Capillary Refill, Limited Range of Motion Skin: Warm, Dry, Intact Wound/Incisions: Erythema Neurological: No New Focal Deficit Psy/Mental Status: Alert - Patient Data Lab Results Last 24 hrs: Laboratory Results - last 24 hr 06/10/21 06/10/21 06/10/21 Range/Units 11:23 15:24 18:56 WBC (4.23-9.07) K/mm3 RBC (4.63-6.08) M/mm3 Hgb (13.7-17.5) gm/dl Hct (40.1-51.0) % MCV (79.0-92.2) fl MCH (25.7-32.2) pg MCHC (32.2-35.5) g/dl RDW Std Deviation (35.1-43.9) fL Plt Count (163-337) K/mm3 MPV (9.4-12.3) fl Neut % (Auto) (34.0-67.9) % Lymph % (Auto) (21.8-53.1) % [place] % (Auto) (5.3-12.2) % Eos % (Auto) (0.8-7.0) Baso % (Auto) (0.1-1.2) % Neut # (Auto) (1.78-5.38) K/mm3 Lymph # (Auto) (1.32-3.57) K/mm3 [place] # (Auto) (0.30-0.82) K/mm3 Eos # (Auto) (0.04-0.54) K/mm3 Baso # (Auto) (0.01-0.08) K/mm3 Manual Slide Review D-Dimer, Quantitative (0.19-0.50) mg/L Sodium (136-145) mEq/L Potassium (3.5-5.1) mEq/L Chloride (98-107) mEq/L Carbon Dioxide (21-32) mEq/L Anion Gap (5-15) BUN (7-18) mg/dL Creatinine (0.7-1.3) mg/dL Est Cr Clr Drug Dosing mL/min Estimated GFR (MDRD) (>60) mL/min BUN/Creatinine Ratio (14-18) Glucose (70-99) mg/dL POC Glucose 309 H 285 H 345 H (70-99) mg/dL Calcium (8.5-10.1) mg/dL Magnesium (1.8-2.4) mg/dL Total Bilirubin (0.2-1.0) mg/dL AST (15-37) U/L ALT (16-63) U/L Alkaline Phosphatase (46-116) U/L C-Reactive Protein (<1.0) mg/dL Total Protein (6.4-8.2) g/dl Albumin (3.4-5.0) g/dl Globulin gm/dL Albumin/Globulin Ratio (1-2) 06/10/21 06/11/21 06/11/21 Range/Units 20:15 06:02 06:35 WBC 7.26 (4.23-9.07) K/mm3 RBC 4.13 L (4.63-6.08) M/mm3 Hgb 12.7 L (13.7-17.5) gm/dl Hct 39.6 L (40.1-51.0) % MCV 95.9 H (79.0-92.2) fl MCH 30.8 (25.7-32.2) pg MCHC 32.1 L (32.2-35.5) g/dl RDW Std Deviation 49.0 H (35.1-43.9) fL Plt Count 178 (163-337) K/mm3 MPV 10.7 (9.4-12.3) fl Neut % (Auto) 89.8 H (34.0-67.9) % Lymph % (Auto) 6.6 L (21.8-53.1) % [place] % (Auto) 3.2 L (5.3-12.2) % Eos % (Auto) 0 L (0.8-7.0) Baso % (Auto) 0.1 (0.1-1.2) % Neut # (Auto) 6.52 H (1.78-5.38) K/mm3 Lymph # (Auto) 0.48 L (1.32-3.57) K/mm3 [place] # (Auto) 0.23 L (0.30-0.82) K/mm3 Eos # (Auto) 0.00 L (0.04-0.54) K/mm3 Baso # (Auto) 0.01 (0.01-0.08) K/mm3 Manual Slide Review Abnormal smear D-Dimer, Quantitative (0.19-0.50) mg/L Sodium (136-145) mEq/L Potassium (3.5-5.1) mEq/L Chloride (98-107) mEq/L Carbon Dioxide (21-32) mEq/L Anion Gap (5-15) BUN (7-18) mg/dL Creatinine (0.7-1.3) mg/dL Est Cr Clr Drug Dosing mL/min Estimated GFR (MDRD) (>60) mL/min BUN/Creatinine Ratio (14-18) Glucose (70-99) mg/dL POC Glucose 298 H 237 H (70-99) mg/dL Calcium (8.5-10.1) mg/dL Magnesium (1.8-2.4) mg/dL Total Bilirubin (0.2-1.0) mg/dL AST (15-37) U/L ALT (16-63) U/L Alkaline Phosphatase (46-116) U/L C-Reactive Protein (<1.0) mg/dL Total Protein (6.4-8.2) g/dl Albumin (3.4-5.0) g/dl Globulin gm/dL Albumin/Globulin Ratio (1-2) 06/11/21 06/11/21 Range/Units 06:35 06:35 WBC (4.23-9.07) K/mm3 RBC (4.63-6.08) M/mm3 Hgb (13.7-17.5) gm/dl Hct (40.1-51.0) % MCV (79.0-92.2) fl MCH (25.7-32.2) pg MCHC (32.2-35.5) g/dl RDW Std Deviation (35.1-43.9) fL Plt Count (163-337) K/mm3 MPV (9.4-12.3) fl Neut % (Auto) (34.0-67.9) % Lymph % (Auto) (21.8-53.1) % [place] % (Auto) (5.3-12.2) % Eos % (Auto) (0.8-7.0) Baso % (Auto) (0.1-1.2) % Neut # (Auto) (1.78-5.38) K/mm3 Lymph # (Auto) (1.32-3.57) K/mm3 [place] # (Auto) (0.30-0.82) K/mm3 Eos # (Auto) (0.04-0.54) K/mm3 Baso # (Auto) (0.01-0.08) K/mm3 Manual Slide Review D-Dimer, Quantitative 2.61 H (0.19-0.50) mg/L Sodium 138 (136-145) mEq/L Potassium 4.5 (3.5-5.1) mEq/L Chloride 103 (98-107) mEq/L Carbon Dioxide 26 (21-32) mEq/L Anion Gap 13.5 (5-15) BUN 31 H (7-18) mg/dL Creatinine 1.0 (0.7-1.3) mg/dL Est Cr Clr Drug Dosing 77.63 mL/min Estimated GFR (MDRD) > 60 (>60) mL/min BUN/Creatinine Ratio 31.0 H (14-18) Glucose 281 H (70-99) mg/dL POC Glucose (70-99) mg/dL Calcium 8.0 L (8.5-10.1) mg/dL Magnesium 2.2 (1.8-2.4) mg/dL Total Bilirubin 0.4 (0.2-1.0) mg/dL AST 32 (15-37) U/L ALT 9 L (16-63) U/L Alkaline Phosphatase 40 L (46-116) U/L C-Reactive Protein 12.0 H* (<1.0) mg/dL Total Protein 5.9 L (6.4-8.2) g/dl Albumin 2.3 L (3.4-5.0) g/dl Globulin 3.6 gm/dL Albumin/Globulin Ratio 0.6 L (1-2) Result Diagrams: 06/11/21 06:35 06/11/21 06:35 Sepsis Event Note - Evaluation Sepsis Screening Result: No Definite Risk - Focused Exam Vital Signs: Vital Signs Temp Pulse Resp BP Pulse Ox Pulse Ox 06/11/21 04:35 21 H 91 L 06/11/21 04:30 97.0 F 70 28 H 129/54 L 81 L 06/10/21 23:45 92 L 89 L 06/10/21 23:23 99.0 F 22 H 132/63 89 L - Problem List & Annotations (1) Acute respiratory failure due to COVID-19 SNOMED Code(s): 232524021 Code(s): U07.1 - COVID-19; J96.00 - ACUTE RESPIRATORY FAILURE, UNSP W HYPOXIA OR HYPERCAPNIA Status: Acute Priority: High Current Visit: Yes (2) Pneumonia due to COVID-19 virus SNOMED Code(s): 242395754227758948 Code(s): U07.1 - COVID-19; J12.82 - PNEUMONIA DUE TO CORONAVIRUS DISEASE 2019 Status: Acute Priority: High Current Visit: Yes (3) Diabetes mellitus type 2 in nonobese SNOMED Code(s): 761738160 Code(s): E11.9 - TYPE 2 DIABETES MELLITUS WITHOUT COMPLICATIONS Status: Chronic Priority: High Current Visit: Yes (4) Parkinson's disease dementia SNOMED Code(s): 822547180295632 Code(s): G20 - PARKINSON'S DISEASE; F02.80 - DEMENTIA IN OTH DISEASES CLASSD ELSWHR W/O BEHAVRL DISTURB Status: Chronic Priority: High Current Visit: Yes Qualifiers: Dementia behavioral disturbance: without behavioral disturbance Qualified Code(s): G20 - Parkinson's disease; F02.80 - Dementia in other diseases classified elsewhere without behavioral disturbance - Problem List Review Problem List Initiated/Reviewed/Updated: Yes - Plan Plan:: The patient is a 71-year-old gentleman who has been admitted to acute hospitalization secondary to pneumonia associated with COVID-19. The patient has been started on dexamethasone 6 mg p.o. daily. The patient also has been started on remdesivir 100 mg IV daily as he was given 200 mg IV in the emergency department. The patient will be kept on carb constant diet and Accu-Cheks before meals and at bedtime. He is on insulin sliding scale low-dose. The patient has a history of what appears to be Parkinson's dementia and he is also on carbidopa/levodopa and this has been continued as a part of his home medications. The patient's DVT prophylaxis will be the use of Lovenox 40 mg subcutaneous daily. Oxygen will be titrated to keep his saturations around 92%. Repeat laboratory studies have been ordered. PT OT also has been ordered for the patient. Because of the patient's comorbidities and his COVID-19 pneumonia his overall prognosis is poor. 06/11/2021 71-year-old male with a history of Parkinson's disease admitted for treatment of his COVID-19 pneumonia. Patient was noted to be very confused on admission and this has improved greatly. He is alert to person place and time. He continues on dexamethasone and remdesivir. Labs today show a WBC of 7.26. Hemoglobin 12.7. Platelet 178,000. Patient has been on Rocephin and there is no clear indication for this. We will therefore discontinue it. Procalcitonin is pending. Blood cultures are negative. D-dimer is elevated at 2.61 which is an improvement over yesterday. Patient CTA was negative however we will also check lower extremities for DVT. No obvious signs of DVT at this point. Sodium 138. Potassium 4.5. Chloride 103. Carbon dioxide 26. Anion gap 13.5. BUN is 31. Creatinine 1.0. GFR is improved to greater than 60. Glucose has been ranging from 345-237. We will discontinue patient's Metformin but we will continue alogliptin. We will increase patient's long-acting insulin to 28 units at bedtime as he has been receiving significant amounts of sliding scale insulin. Magnesium is 2.2. Bilirubin 0.4. AST is 32, ALT 9, alkaline phosphatase 40. CRP is 12.0. Protein is 5.9. Albumin is 2.3. There is some confusion with when the patient actually developed symptoms whether or not his symptoms have been improving or worsening. Because of this we will keep the patient on quarantine for a total of 10 days unless he requires high flow. This would mean he may come off of isolation at 06/15/2021 at 23:59. Discussed plan of care with patient. He reports he would like us to discuss this with his daughters. There is some [id number] on whether or not to continue remdesivir and ultimately decision is made to continue this as patient's liver enzymes and renal function look good. Family requests zinc and vitamin C be started and this seems reasonable. They would like vitamin D be started and we will check a level of this prior to prescribing. All questions answered. Unknown length of stay due to severity of COVID-19 illness.
[2021-06-11] MEDS ORDERED: Non-Formulary Medication 1 Each PO SCH (09:00)
[2021-06-11] MEDS: cefTRIAXone 1 GM in Sodium Chloride 0.9% 100 ML IV SCH (09:01)
[2021-06-11] MEDS: Dexamethasone 4 MG Tab PO SCH (09:02)
[2021-06-11] MEDS: Trospium 20 MG Tab PO SCH ×2 (09:03→21:21)
[2021-06-11] MEDS: Finasteride 5 MG Tab PO SCH (09:03)
[2021-06-11] MEDS: Enoxaparin 40 MG/0.4 ML Syringe SUBCUT SCH (09:04)
[2021-06-11] MEDS: Insulin Regular, Human 100 Units/ML 3 ML Vial SUBCUT SCH ×4 (09:04→18:02)
--- NOTE | 2021-06-11 14:28 | US ---
Bilateral lower extremity deep venous ultrasound: Duplex and color Doppler evaluation was obtained of the right and left common femoral, proximal greater saphenous, superficial femoral, popliteal, posterior tibial and peroneal veins. Comparison: No prior venous imaging is available. Findings: Visualized veins show normal phasic flow, augmentation and compression. Impression: 1. No findings of the deep venous thrombosis is seen within the right or left lower extremities. Diagnostic code #1
[2021-06-11] MEDS ORDERED: Insulin Glargine,Hum.Rec.Anlog 100 UNIT/ML 3 ML Pen SUBCUT SCH (21:00)
[2021-06-11] MEDS: Tamsulosin 0.4 MG Cap.ER PO SCH (21:21)
[2021-06-11] MEDS: REMDESIVIR 100 MG in Sodium Chloride 0.9% 100 ML IV SCH (21:21)
[2021-06-11] MEDS ORDERED: guaiFENesin/Dextromethorphan 100-10 MG/5 ML Soln 5 ML Cup PO PRN (21:35)
[2021-06-11] MEDS ORDERED: Aluminum Hydroxide/Magnesium Hydroxide/Simethicone Susp 30 ML Cup PO PRN (21:37)
[2021-06-11] MEDS: Temazepam 15 MG Cap PO PRN (23:02)
[2021-06-12] MEDS: oxyCODONE 5 MG Tab PO PRN ×5 (02:38→22:22)
[2021-06-12] MEDS: Levothyroxine 50 MCG Tab PO SCH (05:09)
[2021-06-12] MEDS: LEVODOPA PO SCH ×4 (06:21→18:30)
[2021-06-12] MEDS: CARBIDOPA PO SCH ×4 (06:21→18:30)
--- NOTE | 2021-06-12 07:36 | PCM.PN ---
- General Info Date of Service: 06/12/21 Admission Dx/Problem (Free Text): Admission Diagnosis/Problem Admission Diagnosis/Problem acute respiratory failure due to COVID-19 pneumonia. Functional Status: Reports: Pain Controlled, Tolerating Diet, Ambulating, Urinating, Incentive Spirometry, Other (Acapella ). Denies: New Symptoms - Review of Systems General: Reports: Weakness, Fatigue. Denies: Fever, Malaise, Chills HEENT: Reports: No Symptoms. Denies: Headaches, Sore Throat Pulmonary: Reports: Shortness of Breath, Pleuritic Chest Pain, Cough, Sputum Cardiovascular: Reports: No Symptoms, Dyspnea on Exertion. Denies: Chest Pain, Palpitations, Edema Gastrointestinal: Reports: No Symptoms. Denies: Abdominal Pain, Constipation, Diarrhea, Nausea, Vomiting Genitourinary: Reports: No Symptoms. Denies: Pain Musculoskeletal: Reports: Joint Pain (knee pain ) Skin: Reports: No Symptoms. Denies: Cyanosis Neurological: Reports: Confusion (baseline ), Pre-Existing Deficit (Parkinson's disease), Weakness. Denies: Dizziness, Headache, Numbness, Seizure, Syncope, Tingling, Difficulty Walking, Gait Disturbance Psychiatric: Reports: No Symptoms - Patient Data Vitals - Most Recent: Last Vital Signs Temp 96.4 F L 06/12/21 04:19 Pulse 72 06/12/21 04:19 Resp 22 H 06/12/21 04:19 BP 135/75 06/12/21 04:19 Pulse Ox 98 06/12/21 06:04 Weight - Most Recent: 241 lb 1.6 oz I&O - Last 24 Hours: Intake & Output 06/11/21 06/12/21 06/12/21 22:59 06:59 14:59 Intake Total 1200 900 Balance 1200 900 Lab Results Last 24 Hours: Laboratory Results - last 24 hr 06/11/21 06/11/21 06/11/21 Range/Units 06:35 06:35 06:35 WBC (4.23-9.07) K/mm3 RBC (4.63-6.08) M/mm3 Hgb (13.7-17.5) gm/dl Hct (40.1-51.0) % MCV (79.0-92.2) fl MCH (25.7-32.2) pg MCHC (32.2-35.5) g/dl RDW Std Deviation (35.1-43.9) fL Plt Count (163-337) K/mm3 MPV (9.4-12.3) fl Neut % (Auto) (34.0-67.9) % Lymph % (Auto) (21.8-53.1) % [facility] % (Auto) (5.3-12.2) % Eos % (Auto) (0.8-7.0) Baso % (Auto) (0.1-1.2) % Neut # (Auto) (1.78-5.38) K/mm3 Lymph # (Auto) (1.32-3.57) K/mm3 [facility] # (Auto) (0.30-0.82) K/mm3 Eos # (Auto) (0.04-0.54) K/mm3 Baso # (Auto) (0.01-0.08) K/mm3 Manual Slide Review Abnormal smear Sodium 138 (136-145) mEq/L Potassium 4.5 (3.5-5.1) mEq/L Chloride 103 (98-107) mEq/L Carbon Dioxide 26 (21-32) mEq/L Anion Gap 13.5 (5-15) BUN 31 H (7-18) mg/dL Creatinine 1.0 (0.7-1.3) mg/dL Est Cr Clr Drug Dosing 77.63 mL/min Estimated GFR (MDRD) > 60 (>60) mL/min BUN/Creatinine Ratio 31.0 H (14-18) Glucose 281 H (70-99) mg/dL POC Glucose (70-99) mg/dL Calcium 8.0 L (8.5-10.1) mg/dL Magnesium 2.2 (1.8-2.4) mg/dL Total Bilirubin 0.4 (0.2-1.0) mg/dL AST 32 (15-37) U/L ALT 9 L (16-63) U/L Alkaline Phosphatase 40 L (46-116) U/L C-Reactive Protein 12.0 H* (<1.0) mg/dL Total Protein 5.9 L (6.4-8.2) g/dl Albumin 2.3 L (3.4-5.0) g/dl Globulin 3.6 gm/dL Albumin/Globulin Ratio 0.6 L (1-2) Vitamin D 25-Hydroxy (30.0-100.0) ng/ml Procalcitonin 2.04 H ng/mL 06/11/21 06/11/21 06/11/21 Range/Units 06:35 10:01 17:36 WBC (4.23-9.07) K/mm3 RBC (4.63-6.08) M/mm3 Hgb (13.7-17.5) gm/dl Hct (40.1-51.0) % MCV (79.0-92.2) fl MCH (25.7-32.2) pg MCHC (32.2-35.5) g/dl RDW Std Deviation (35.1-43.9) fL Plt Count (163-337) K/mm3 MPV (9.4-12.3) fl Neut % (Auto) (34.0-67.9) % Lymph % (Auto) (21.8-53.1) % [facility] % (Auto) (5.3-12.2) % Eos % (Auto) (0.8-7.0) Baso % (Auto) (0.1-1.2) % Neut # (Auto) (1.78-5.38) K/mm3 Lymph # (Auto) (1.32-3.57) K/mm3 [facility] # (Auto) (0.30-0.82) K/mm3 Eos # (Auto) (0.04-0.54) K/mm3 Baso # (Auto) (0.01-0.08) K/mm3 Manual Slide Review Sodium (136-145) mEq/L Potassium (3.5-5.1) mEq/L Chloride (98-107) mEq/L Carbon Dioxide (21-32) mEq/L Anion Gap (5-15) BUN (7-18) mg/dL Creatinine (0.7-1.3) mg/dL Est Cr Clr Drug Dosing mL/min Estimated GFR (MDRD) (>60) mL/min BUN/Creatinine Ratio (14-18) Glucose (70-99) mg/dL POC Glucose 257 H 282 H (70-99) mg/dL Calcium (8.5-10.1) mg/dL Magnesium (1.8-2.4) mg/dL Total Bilirubin (0.2-1.0) mg/dL AST (15-37) U/L ALT (16-63) U/L Alkaline Phosphatase (46-116) U/L C-Reactive Protein (<1.0) mg/dL Total Protein (6.4-8.2) g/dl Albumin (3.4-5.0) g/dl Globulin gm/dL Albumin/Globulin Ratio (1-2) Vitamin D 25-Hydroxy 81.0 (30.0-100.0) ng/ml Procalcitonin ng/mL 06/11/21 06/12/21 06/12/21 Range/Units 22:33 05:11 06:05 WBC 5.09 (4.23-9.07) K/mm3 RBC 4.08 L (4.63-6.08) M/mm3 Hgb 12.5 L (13.7-17.5) gm/dl Hct 39.5 L (40.1-51.0) % MCV 96.8 H (79.0-92.2) fl MCH 30.6 (25.7-32.2) pg MCHC 31.6 L (32.2-35.5) g/dl RDW Std Deviation 49.3 H (35.1-43.9) fL Plt Count 202 (163-337) K/mm3 MPV 10.3 (9.4-12.3) fl Neut % (Auto) 85.1 H (34.0-67.9) % Lymph % (Auto) 8.6 L (21.8-53.1) % [facility] % (Auto) 5.9 (5.3-12.2) % Eos % (Auto) 0 L (0.8-7.0) Baso % (Auto) 0.2 (0.1-1.2) % Neut # (Auto) 4.33 (1.78-5.38) K/mm3 Lymph # (Auto) 0.44 L (1.32-3.57) K/mm3 [facility] # (Auto) 0.30 (0.30-0.82) K/mm3 Eos # (Auto) 0.00 L (0.04-0.54) K/mm3 Baso # (Auto) 0.01 (0.01-0.08) K/mm3 Manual Slide Review Sodium (136-145) mEq/L Potassium (3.5-5.1) mEq/L Chloride (98-107) mEq/L Carbon Dioxide (21-32) mEq/L Anion Gap (5-15) BUN (7-18) mg/dL Creatinine (0.7-1.3) mg/dL Est Cr Clr Drug Dosing mL/min Estimated GFR (MDRD) (>60) mL/min BUN/Creatinine Ratio (14-18) Glucose (70-99) mg/dL POC Glucose 278 H 248 H (70-99) mg/dL Calcium (8.5-10.1) mg/dL Magnesium (1.8-2.4) mg/dL Total Bilirubin (0.2-1.0) mg/dL AST (15-37) U/L ALT (16-63) U/L Alkaline Phosphatase (46-116) U/L C-Reactive Protein (<1.0) mg/dL Total Protein (6.4-8.2) g/dl Albumin (3.4-5.0) g/dl Globulin gm/dL Albumin/Globulin Ratio (1-2) Vitamin D 25-Hydroxy (30.0-100.0) ng/ml Procalcitonin ng/mL 06/12/21 Range/Units 06:05 WBC (4.23-9.07) K/mm3 RBC (4.63-6.08) M/mm3 Hgb (13.7-17.5) gm/dl Hct (40.1-51.0) % MCV (79.0-92.2) fl MCH (25.7-32.2) pg MCHC (32.2-35.5) g/dl RDW Std Deviation (35.1-43.9) fL Plt Count (163-337) K/mm3 MPV (9.4-12.3) fl Neut % (Auto) (34.0-67.9) % Lymph % (Auto) (21.8-53.1) % [facility] % (Auto) (5.3-12.2) % Eos % (Auto) (0.8-7.0) Baso % (Auto) (0.1-1.2) % Neut # (Auto) (1.78-5.38) K/mm3 Lymph # (Auto) (1.32-3.57) K/mm3 [facility] # (Auto) (0.30-0.82) K/mm3 Eos # (Auto) (0.04-0.54) K/mm3 Baso # (Auto) (0.01-0.08) K/mm3 Manual Slide Review Sodium 139 (136-145) mEq/L Potassium 4.4 (3.5-5.1) mEq/L Chloride 102 (98-107) mEq/L Carbon Dioxide 31 (21-32) mEq/L Anion Gap 10.4 (5-15) BUN 31 H (7-18) mg/dL Creatinine 1.1 (0.7-1.3) mg/dL Est Cr Clr Drug Dosing 70.58 mL/min Estimated GFR (MDRD) > 60 (>60) mL/min BUN/Creatinine Ratio 28.2 H (14-18) Glucose 265 H (70-99) mg/dL POC Glucose (70-99) mg/dL Calcium 8.4 L (8.5-10.1) mg/dL Magnesium 2.2 (1.8-2.4) mg/dL Total Bilirubin 0.5 (0.2-1.0) mg/dL AST 27 (15-37) U/L ALT 18 (16-63) U/L Alkaline Phosphatase 39 L (46-116) U/L C-Reactive Protein 5.6 H* (<1.0) mg/dL Total Protein 6.3 L (6.4-8.2) g/dl Albumin 2.2 L (3.4-5.0) g/dl Globulin 4.1 gm/dL Albumin/Globulin Ratio 0.5 L (1-2) Vitamin D 25-Hydroxy (30.0-100.0) ng/ml Procalcitonin ng/mL [facility] Results Last 24 Hours: Microbiology 06/09/21 21:21 Blood Culture - Preliminary Blood - Venous - Lab Draw 06/09/21 21:10 Blood Culture - Preliminary Blood - Venous Med Orders - Current: Current Medications Acetaminophen (Acetaminophen 325 Mg Tab) 650 mg PO Q4H PRN PRN Reason: Pain (Mild 1-3)/fever Last Admin: 06/10/21 23:27 Dose: 650 mg Documented by: Al Hydroxide/Mg Hydroxide (Aluminum Hydroxide/Magnesium Hydroxide/Simethicone Susp 30 Ml Cup) 30 ml PO Q4H PRN PRN Reason: Heartburn Albuterol (Albuterol 6.7 Gm Inhaler) 0 gm INH QID PRN PRN Reason: SOB/Wheezing Albuterol/Ipratropium (Albuterol/Ipratropium 3.0-0.5 Mg/3 Ml Neb Soln) 3 ml NEB Q4H PRN PRN Reason: Shortness Of Breath/wheezing Last Admin: 06/11/21 19:54 Dose: 3 ml Documented by: Alogliptin Benzoate (Alogliptin 12.5 Mg Tab) 12.5 mg PO BIDMEALS [facility] Last Admin: 06/12/21 06:20 Dose: 12.5 mg Documented by: Ascorbic Acid (Ascorbic Acid 500 Mg Tab) 500 mg PO DAILY [facility] Dexamethasone (Dexamethasone 4 Mg Tab) 6 mg PO DAILY [facility] Stop: 06/18/21 09:01 Last Admin: 06/11/21 09:02 Dose: 6 mg Documented by: Docusate Sodium (Docusate Sodium 100 Mg Cap) 100 mg PO BID PRN PRN Reason: Constipation Enoxaparin Sodium (Enoxaparin 40 Mg/0.4 Ml Syringe) 40 mg SUBCUT DAILY [facility] Last Admin: 06/11/21 09:04 Dose: 40 mg Documented by: Finasteride (Finasteride 5 Mg Tab) 5 mg PO DAILY [facility] Last Admin: 06/11/21 09:03 Dose: 5 mg Documented by: Guaifenesin/Phenylephrine HCl (Guaifenesin/Dextromethorphan 100-10 Mg/5 Ml Soln 5 Ml Cup) 10 ml PO Q6H PRN PRN Reason: Cough Remdesivir 100 mg/ Sodium (Chloride) 100 mls @ 100 mls/hr IV Q24H [facility] Stop: 06/13/21 21:59 Last Admin: 06/11/21 21:21 Dose: 100 mls/hr Documented by: Ceftriaxone Sodium 2 gm/ (Sodium Chloride) 100 mls @ 200 mls/hr IV Q24H [facility] Azithromycin 500 mg/ Sodium (Chloride) 250 mls @ 250 mls/hr IV Q24H [facility] Insulin Glargine (Insulin Glargine,Hum.Rec.Anlog 100 Unit/Ml 3 Ml Pen) 28 unit SUBCUT BEDTIME [facility] Last Admin: 06/11/21 21:21 Dose: 28 units Documented by: Insulin Human Regular (Insulin Regular, Human 100 Units/Ml 3 Ml Vial) [facility] Protocol Last Admin: 06/11/21 18:02 Dose: Not Given Documented by: Levothyroxine Sodium (Levothyroxine 50 Mcg Tab) 50 mcg PO ACBREAKFAST [facility] Last Admin: 06/12/21 05:09 Dose: 50 mcg Documented by: Carbidopa/Levodopa 25-250 Tab Own Med 1 tab PO 0600,1100,1500,1900,2300 [facility] Last Admin: 06/12/21 06:21 Dose: 1 tab Documented by: Ondansetron HCl (Ondansetron 4 Mg Tab.Dis) 4 mg PO Q4H PRN PRN Reason: nausea, able to take PO Oxycodone HCl (Oxycodone 5 Mg Tab) 5 mg PO Q4H PRN PRN Reason: Pain (moderate 4-6) Last Admin: 06/12/21 02:38 Dose: 5 mg Documented by: Sodium Chloride (Sodium Chloride 0.9% 10 Ml Syringe) 10 ml FLUSH ASDIRECTED PRN PRN Reason: Keep Vein Open Last Admin: 06/10/21 00:24 Dose: 10 ml Documented by: Tamsulosin HCl (Tamsulosin 0.4 Mg Cap.Er) 0.4 mg PO BEDTIME [facility] Last Admin: 06/11/21 21:21 Dose: 0.4 mg Documented by: Temazepam (Temazepam 15 Mg Cap) 15 mg PO BEDTIME PRN PRN Reason: Sleep Last Admin: 06/11/21 23:02 Dose: 15 mg Documented by: Trospium (Trospium 20 Mg Tab) 20 mg PO BID [facility] Last Admin: 06/11/21 21:21 Dose: 20 mg Documented by: Zinc Sulfate (Zinc Sulfate 220 Mg Cap) 220 mg PO DAILY [facility] Discontinued Medications Acetaminophen (Acetaminophen 325 Mg Tab) 975 mg PO NOW ONE Stop: 06/09/21 21:16 Last Admin: 06/09/21 21:41 Dose: 350 mg Documented by: Acetaminophen (Acetaminophen 650 Mg Supp) 650 mg RECTAL NOW ONE Stop: 06/09/21 21:52 Last Admin: 06/09/21 22:30 Dose: 650 mg Documented by: Carbidopa/Levodopa (Carbidopa/Levodopa 25-100 Mg Tab) 1 tab PO QID [facility] Last Admin: 06/10/21 16:54 Dose: 1 tab Documented by: Dexamethasone (Dexamethasone 4 Mg/Ml 5 Ml Mdv) 6 mg IV ONETIME ONE Stop: 06/10/21 00:53 Last Admin: 06/10/21 01:31 Dose: 6 mg Documented by: Glimepiride (Glimepiride 2 Mg Tab) 4 mg PO DAILY [facility] Last Admin: 06/10/21 09:51 Dose: 4 mg Documented by: Glimepiride (Glimepiride 2 Mg Tab) 2 mg PO WITHBREAKFAST [facility] Last Admin: 06/11/21 06:05 Dose: 2 mg Documented by: Sodium Chloride (Normal Saline) 1,000 mls @ 250 mls/hr IV ONETIME ONE Stop: 06/10/21 01:14 Last Infusion: 06/09/21 21:41 Dose: 250 mls/hr Documented by: Sodium Chloride (Normal Saline) Confirm Administered Dose 1,000 mls @ as directed .ROUTE .STK-MED ONE Stop: 06/09/21 21:19 Last Admin: 06/10/21 01:11 Dose: Not Given Documented by: Remdesivir 200 mg/ Sodium (Chloride) 250 mls @ 250 mls/hr IV ONETIME ONE Stop: 06/10/21 00:53 Last Admin: 06/10/21 01:47 Dose: 250 mls/hr Documented by: Ceftriaxone Sodium 1 gm/ (Sodium Chloride) 100 mls @ 200 mls/hr IV Q24H [facility] Last Admin: 06/11/21 09:01 Dose: 200 mls/hr Documented by: Insulin Glargine (Insulin Glarg,Human.Rec.Analog 100 Unit/Ml) 24 unit SUBCUT BEDTIME [facility] Insulin Glargine (Insulin Glargine,Hum.Rec.Anlog 100 Unit/Ml 3 Ml Pen) 24 unit SUBCUT BEDTIME [facility] Last Admin: 06/10/21 21:05 Dose: 24 units Documented by: Insulin Human Isoph/Insulin Regular (Insulin Nph/Insulin Regular,Human 70-30 100 Units/Ml 10 Ml Vial) 0 units SUBCUT BIDAC [facility]; Protocol Last Admin: 06/10/21 02:36 Dose: Not Given Documented by: Insulin Human Lispro (Insulin Lispro 100 Unit/Ml 3 Ml Kwikpen) 0 unit SUBCUT QIDACANDBED [facility]; Protocol Last Admin: 06/10/21 12:15 Dose: Not Given Documented by: Iopamidol (Iopamidol 755 Mg/Ml 100 Ml Bottle) 100 ml IVPUSH ONETIME ONE Stop: 06/09/21 23:54 Last Admin: 06/10/21 00:24 Dose: 100 ml Documented by: Metformin HCl (Metformin 500 Mg Tab) 1,000 mg PO BIDMEALS [facility] Last Admin: 06/11/21 06:06 Dose: 1,000 mg Documented by: Morphine Sulfate (Morphine 2 Mg/Ml Syringe) 2 mg IVPUSH Q2H PRN PRN Reason: Pain (severe 7-10) Stop: 06/11/21 07:46 Non-Formulary Medication (Tresiba) 24 units SQ ONETIME ONE Stop: 06/10/21 03:46 Last Admin: 06/10/21 03:45 Dose: 24 units Documented by: Carbidopa/Levodopa 25-250 Tab Own Med 1 tab PO 0600,1100,1500,1900,2300 [facility] Last Admin: 06/11/21 05:29 Dose: 1 tab Documented by: Non-Formulary Medication (Sitagliptin Phos/Metformin Hcl [Janumet 50-1,000 Mg]) 1 tab PO BID [facility] Non-Formulary Medication (Non-Formulary Medication 1 Each) 1 each PO BID [facility] Trospium (Trospium 20 Mg Tab) 10 mg PO BID [facility] Last Admin: 06/10/21 21:03 Dose: 10 mg Documented by: - Exam Quality Assessment: Supplemental Oxygen (6-7L), DVT Prophylaxis. No: Urine Catheter General: Alert, Oriented, Cooperative, No Acute Distress HEENT: Pupils Equal, Pupils Reactive, Mucous Membr. Moist/[place] Neck: Supple, Trachea Midline Lungs: Decreased Breath Sounds, Crackles. No: Normal Respiratory Effort (Tachy pnea) Cardiovascular: Regular Rate, Regular Rhythm GI/Abdominal Exam: Normal Bowel Sounds, Soft, Non-Tender, No Distention (Male) Exam: Deferred Back Exam: Normal Inspection, Decreased Range of Motion Extremities: Normal Inspection, Normal Range of Motion, Non-Tender, No Pedal Edema Skin: Warm, Dry, Intact Neurological: No New Focal Deficit Psy/Mental Status: Alert, Normal Affect, Normal Mood - Patient Data Lab Results Last 24 hrs: Laboratory Results - last 24 hr 06/11/21 06/11/21 06/11/21 Range/Units 06:35 06:35 06:35 WBC (4.23-9.07) K/mm3 RBC (4.63-6.08) M/mm3 Hgb (13.7-17.5) gm/dl Hct (40.1-51.0) % MCV (79.0-92.2) fl MCH (25.7-32.2) pg MCHC (32.2-35.5) g/dl RDW Std Deviation (35.1-43.9) fL Plt Count (163-337) K/mm3 MPV (9.4-12.3) fl Neut % (Auto) (34.0-67.9) % Lymph % (Auto) (21.8-53.1) % [facility] % (Auto) (5.3-12.2) % Eos % (Auto) (0.8-7.0) Baso % (Auto) (0.1-1.2) % Neut # (Auto) (1.78-5.38) K/mm3 Lymph # (Auto) (1.32-3.57) K/mm3 [facility] # (Auto) (0.30-0.82) K/mm3 Eos # (Auto) (0.04-0.54) K/mm3 Baso # (Auto) (0.01-0.08) K/mm3 Manual Slide Review Abnormal smear Sodium 138 (136-145) mEq/L Potassium 4.5 (3.5-5.1) mEq/L Chloride 103 (98-107) mEq/L Carbon Dioxide 26 (21-32) mEq/L Anion Gap 13.5 (5-15) BUN 31 H (7-18) mg/dL Creatinine 1.0 (0.7-1.3) mg/dL Est Cr Clr Drug Dosing 77.63 mL/min Estimated GFR (MDRD) > 60 (>60) mL/min BUN/Creatinine Ratio 31.0 H (14-18) Glucose 281 H (70-99) mg/dL POC Glucose (70-99) mg/dL Calcium 8.0 L (8.5-10.1) mg/dL Magnesium 2.2 (1.8-2.4) mg/dL Total Bilirubin 0.4 (0.2-1.0) mg/dL AST 32 (15-37) U/L ALT 9 L (16-63) U/L Alkaline Phosphatase 40 L (46-116) U/L C-Reactive Protein 12.0 H* (<1.0) mg/dL Total Protein 5.9 L (6.4-8.2) g/dl Albumin 2.3 L (3.4-5.0) g/dl Globulin 3.6 gm/dL Albumin/Globulin Ratio 0.6 L (1-2) Vitamin D 25-Hydroxy (30.0-100.0) ng/ml Procalcitonin 2.04 H ng/mL 06/11/21 06/11/21 06/11/21 Range/Units 06:35 10:01 17:36 WBC (4.23-9.07) K/mm3 RBC (4.63-6.08) M/mm3 Hgb (13.7-17.5) gm/dl Hct (40.1-51.0) % MCV (79.0-92.2) fl MCH (25.7-32.2) pg MCHC (32.2-35.5) g/dl RDW Std Deviation (35.1-43.9) fL Plt Count (163-337) K/mm3 MPV (9.4-12.3) fl Neut % (Auto) (34.0-67.9) % Lymph % (Auto) (21.8-53.1) % [facility] % (Auto) (5.3-12.2) % Eos % (Auto) (0.8-7.0) Baso % (Auto) (0.1-1.2) % Neut # (Auto) (1.78-5.38) K/mm3 Lymph # (Auto) (1.32-3.57) K/mm3 [facility] # (Auto) (0.30-0.82) K/mm3 Eos # (Auto) (0.04-0.54) K/mm3 Baso # (Auto) (0.01-0.08) K/mm3 Manual Slide Review Sodium (136-145) mEq/L Potassium (3.5-5.1) mEq/L Chloride (98-107) mEq/L Carbon Dioxide (21-32) mEq/L Anion Gap (5-15) BUN (7-18) mg/dL Creatinine (0.7-1.3) mg/dL Est Cr Clr Drug Dosing mL/min Estimated GFR (MDRD) (>60) mL/min BUN/Creatinine Ratio (14-18) Glucose (70-99) mg/dL POC Glucose 257 H 282 H (70-99) mg/dL Calcium (8.5-10.1) mg/dL Magnesium (1.8-2.4) mg/dL Total Bilirubin (0.2-1.0) mg/dL AST (15-37) U/L ALT (16-63) U/L Alkaline Phosphatase (46-116) U/L C-Reactive Protein (<1.0) mg/dL Total Protein (6.4-8.2) g/dl Albumin (3.4-5.0) g/dl Globulin gm/dL Albumin/Globulin Ratio (1-2) Vitamin D 25-Hydroxy 81.0 (30.0-100.0) ng/ml Procalcitonin ng/mL 06/11/21 06/12/21 06/12/21 Range/Units 22:33 05:11 06:05 WBC 5.09 (4.23-9.07) K/mm3 RBC 4.08 L (4.63-6.08) M/mm3 Hgb 12.5 L (13.7-17.5) gm/dl Hct 39.5 L (40.1-51.0) % MCV 96.8 H (79.0-92.2) fl MCH 30.6 (25.7-32.2) pg MCHC 31.6 L (32.2-35.5) g/dl RDW Std Deviation 49.3 H (35.1-43.9) fL Plt Count 202 (163-337) K/mm3 MPV 10.3 (9.4-12.3) fl Neut % (Auto) 85.1 H (34.0-67.9) % Lymph % (Auto) 8.6 L (21.8-53.1) % [facility] % (Auto) 5.9 (5.3-12.2) % Eos % (Auto) 0 L (0.8-7.0) Baso % (Auto) 0.2 (0.1-1.2) % Neut # (Auto) 4.33 (1.78-5.38) K/mm3 Lymph # (Auto) 0.44 L (1.32-3.57) K/mm3 [facility] # (Auto) 0.30 (0.30-0.82) K/mm3 Eos # (Auto) 0.00 L (0.04-0.54) K/mm3 Baso # (Auto) 0.01 (0.01-0.08) K/mm3 Manual Slide Review Sodium (136-145) mEq/L Potassium (3.5-5.1) mEq/L Chloride (98-107) mEq/L Carbon Dioxide (21-32) mEq/L Anion Gap (5-15) BUN (7-18) mg/dL Creatinine (0.7-1.3) mg/dL Est Cr Clr Drug Dosing mL/min Estimated GFR (MDRD) (>60) mL/min BUN/Creatinine Ratio (14-18) Glucose (70-99) mg/dL POC Glucose 278 H 248 H (70-99) mg/dL Calcium (8.5-10.1) mg/dL Magnesium (1.8-2.4) mg/dL Total Bilirubin (0.2-1.0) mg/dL AST (15-37) U/L ALT (16-63) U/L Alkaline Phosphatase (46-116) U/L C-Reactive Protein (<1.0) mg/dL Total Protein (6.4-8.2) g/dl Albumin (3.4-5.0) g/dl Globulin gm/dL Albumin/Globulin Ratio (1-2) Vitamin D 25-Hydroxy (30.0-100.0) ng/ml Procalcitonin ng/mL 06/12/21 Range/Units 06:05 WBC (4.23-9.07) K/mm3 RBC (4.63-6.08) M/mm3 Hgb (13.7-17.5) gm/dl Hct (40.1-51.0) % MCV (79.0-92.2) fl MCH (25.7-32.2) pg MCHC (32.2-35.5) g/dl RDW Std Deviation (35.1-43.9) fL Plt Count (163-337) K/mm3 MPV (9.4-12.3) fl Neut % (Auto) (34.0-67.9) % Lymph % (Auto) (21.8-53.1) % [facility] % (Auto) (5.3-12.2) % Eos % (Auto) (0.8-7.0) Baso % (Auto) (0.1-1.2) % Neut # (Auto) (1.78-5.38) K/mm3 Lymph # (Auto) (1.32-3.57) K/mm3 [facility] # (Auto) (0.30-0.82) K/mm3 Eos # (Auto) (0.04-0.54) K/mm3 Baso # (Auto) (0.01-0.08) K/mm3 Manual Slide Review Sodium 139 (136-145) mEq/L Potassium 4.4 (3.5-5.1) mEq/L Chloride 102 (98-107) mEq/L Carbon Dioxide 31 (21-32) mEq/L Anion Gap 10.4 (5-15) BUN 31 H (7-18) mg/dL Creatinine 1.1 (0.7-1.3) mg/dL Est Cr Clr Drug Dosing 70.58 mL/min Estimated GFR (MDRD) > 60 (>60) mL/min BUN/Creatinine Ratio 28.2 H (14-18) Glucose 265 H (70-99) mg/dL POC Glucose (70-99) mg/dL Calcium 8.4 L (8.5-10.1) mg/dL Magnesium 2.2 (1.8-2.4) mg/dL Total Bilirubin 0.5 (0.2-1.0) mg/dL AST 27 (15-37) U/L ALT 18 (16-63) U/L Alkaline Phosphatase 39 L (46-116) U/L C-Reactive Protein 5.6 H* (<1.0) mg/dL Total Protein 6.3 L (6.4-8.2) g/dl Albumin 2.2 L (3.4-5.0) g/dl Globulin 4.1 gm/dL Albumin/Globulin Ratio 0.5 L (1-2) Vitamin D 25-Hydroxy (30.0-100.0) ng/ml Procalcitonin ng/mL Result Diagrams: 06/12/21 06:05 06/12/21 06:05 Manolo Results Last 24 hrs: Microbiology 06/09/21 21:21 Blood Culture - Preliminary Blood - Venous - Lab Draw 06/09/21 21:10 Blood Culture - Preliminary Blood - Venous Sepsis Event Note - Evaluation Sepsis Screening Result: No Definite Risk - Focused Exam Vital Signs: Vital Signs Temp Pulse Resp BP Pulse Ox Pulse Ox Pulse Ox 06/12/21 06:04 98 06/12/21 04:19 96.4 F L 72 22 H 135/75 88 L 06/11/21 23:03 97.0 F 58 L 24 H 151/69 H 90 L 06/11/21 20:47 91 L 06/11/21 19:54 91 L 06/11/21 19:43 97.7 F 58 L 28 H 146/70 H 95 - Problem List & Annotations (1) Acute respiratory failure due to COVID-19 SNOMED Code(s): 355546981 Code(s): U07.1 - COVID-19; J96.00 - ACUTE RESPIRATORY FAILURE, UNSP W HYPOXIA OR HYPERCAPNIA Status: Acute Priority: High Current Visit: Yes (2) Pneumonia due to COVID-19 virus SNOMED Code(s): 913247607950876039 Code(s): U07.1 - COVID-19; J12.82 - PNEUMONIA DUE TO CORONAVIRUS DISEASE 2019 Status: Acute Priority: High Current Visit: Yes (3) Diabetes mellitus type 2 in nonobese SNOMED Code(s): 005705424 Code(s): E11.9 - TYPE 2 DIABETES MELLITUS WITHOUT COMPLICATIONS Status: Chronic Priority: High Current Visit: Yes (4) Parkinson's disease dementia SNOMED Code(s): 326059352568757 Code(s): G20 - PARKINSON'S DISEASE; F02.80 - DEMENTIA IN OTH DISEASES CLASSD ELSWHR W/O BEHAVRL DISTURB Status: Chronic Priority: High Current Visit: Yes Qualifiers: Dementia behavioral disturbance: without behavioral disturbance Qualified Code(s): G20 - Parkinson's disease; F02.80 - Dementia in other diseases classified elsewhere without behavioral disturbance (5) Elevated C-reactive protein (CRP) SNOMED Code(s): 786711799285946 Code(s): R79.82 - ELEVATED C-REACTIVE PROTEIN (CRP) Status: Acute Priority: High Current Visit: Yes (6) Elevated d-dimer SNOMED Code(s): 611381026 Code(s): R79.89 - OTHER SPECIFIED ABNORMAL FINDINGS OF BLOOD CHEMISTRY Status: Acute Priority: High Current Visit: Yes (7) Elevated procalcitonin SNOMED Code(s): 621108395, 422573643 Code(s): R79.89 - OTHER SPECIFIED ABNORMAL FINDINGS OF BLOOD CHEMISTRY Status: Acute Priority: High Current Visit: Yes - Problem List Review Problem List Initiated/Reviewed/Updated: Yes - My Orders Last 24 Hours: My Active Orders 06/11/21 10:30 Consult to Respiratory Therapy [Respiratory Care Assess and Treatment] [CONS] Routine Albuterol [Proventil HFA] See Dose Instructions INH QID PRN 06/11/21 10:31 RT Post Treatment Assessment [RC] Click to Edit RT Pre-Treatment Assessment [RC] Click to Edit 06/11/21 10:32 Consult to Case Management/Powertrain Design Engineer [CONS] Routine 06/11/21 10:52 CPAP Noctural Home [RT BiPAP/CPAP] [RC] ASDIRECTED 06/11/21 12:03 Communication Order [RC] ROUTINE 06/11/21 21:00 Insulin Glargine,Hum.Rec.Anlog [Semglee Pen] 28 unit SUBCUT BEDTIME 06/12/21 06:05 CBC WITH AUTO DIFF [HEME] AM 06/12/21 07:45 Azithromycin [Zithromax] 500 mg Sodium Chloride 0.9% [Normal Saline AdvBag] 250 ml IV Q24H cefTRIAXone [Rocephin] 2 gm Sodium Chloride 0.9% [Normal Saline] 100 ml IV Q24H 06/12/21 09:00 Ascorbic Acid [Vitamin C] 500 mg PO DAILY Zinc Sulfate [Zincate] 220 mg PO DAILY 06/13/21 05:11 CBC WITH AUTO DIFF [HEME] AM CMP [COMPREHENSIVE METABOLIC PN,CMP] [CHEM] AM CRP [C-REACTIVE PROTEIN] [CHEM] AM DD [D-DIMER QUANTITATIVE] [COAG] Q48H MAGNESIUM [CHEM] AM 06/14/21 05:11 CBC WITH AUTO DIFF [HEME] AM CMP [COMPREHENSIVE METABOLIC PN,CMP] [CHEM] AM CRP [C-REACTIVE PROTEIN] [CHEM] AM MAGNESIUM [CHEM] AM 06/15/21 05:11 CBC WITH AUTO DIFF [HEME] AM CMP [COMPREHENSIVE METABOLIC PN,CMP] [CHEM] AM CRP [C-REACTIVE PROTEIN] [CHEM] AM DD [D-DIMER QUANTITATIVE] [COAG] Q48H MAGNESIUM [CHEM] AM - Plan Plan:: The patient is a 71-year-old gentleman who has been admitted to acute hospitalization secondary to pneumonia associated with COVID-19. The patient has been started on dexamethasone 6 mg p.o. daily. The patient also has been started on remdesivir 100 mg IV daily as he was given 200 mg IV in the emergency department. The patient will be kept on carb constant diet and Accu-Cheks before meals and at bedtime. He is on insulin sliding scale low-dose. The patient has a history of what appears to be Parkinson's dementia and he is also on carbidopa/levodopa and this has been continued as a part of his home medications. The patient's DVT prophylaxis will be the use of Lovenox 40 mg subcutaneous daily. Oxygen will be titrated to keep his saturations around 92%. Repeat laboratory studies have been ordered. PT OT also has been ordered for the patient. Because of the patient's comorbidities and his COVID-19 pneumonia his overall prognosis is poor. 06/11/2021 71-year-old male with a history of Parkinson's disease admitted for treatment of his COVID-19 pneumonia. Patient was noted to be very confused on admission and this has improved greatly. He is alert to person place and time. He continues on dexamethasone and remdesivir. Labs today show a WBC of 7.26. Hemoglobin 12.7. Platelet 178,000. Patient has been on Rocephin and there is no clear indication for this. We will therefore discontinue it. Procalcitonin is pen ding. Blood cultures are negative. D-dimer is elevated at 2.61 which is an improvement over yesterday. Patient CTA was negative however we will also check lower extremities for DVT. No obvious signs of DVT at this point. Sodium 138. Potassium 4.5. Chloride 103. Carbon dioxide 26. Anion gap 13.5. BUN is 31. Creatinine 1.0. GFR is improved to greater than 60. Glucose has been ranging from 345-237. We will discontinue patient's Metformin but we will continue alogliptin. We will increase patient's long-acting insulin to 28 units at bedtime as he has been receiving significant amounts of sliding scale insulin. Magnesium is 2.2. Bilirubin 0.4. AST is 32, ALT 9, alkaline phosphatase 40. CRP is 12.0. Protein is 5.9. Albumin is 2.3. There is some confusion with when the patient actually developed symptoms whether or not his symptoms have been improving or worsening. Because of this we will keep the patient on quarantine for a total of 10 days unless he requires high flow. This would mean he may come off of isolation at 06/15/2021 at 23:59. Discussed plan of care with patient. He reports he would like us to discuss this with his daughters. There is some [id number] on whether or not to continue remdesivir and ultimately decision is made to continue this as patient's liver enzymes and renal function look good. Family requests zinc and vitamin C be started and this seems reasonable. They would like vitamin D be started and we will check a level of this prior to prescribing. All questions answered. Unknown length of stay due to severity of COVID-19 illness. 06/12/2021 This is a 71-year-old male with a history of Parkinson's disease who is admitted to a floor for altered mental status and COVID-19 pneumonia. His mental status remains greatly improved with baseline confusion. He is on 6 to 7 L via nasal cannula with saturations in the upper 80s to low 90s. His procalcitonin from yesterday returned quite elevated at 2.04. Because of this we will resume Rocephin 2 g and start 3 days worth of azithromycin. We will check a UA on the patient as well. Labs today show a WBC of 5.09. Hemoglobin 12.5. Platelet of 202,000. Neutrophils are elevated 85.1%. Sodium 139. Potassium 4.4. Chloride 102. Carbon dioxide 31. Anion gap 10.4. BUN is 31. Creatinine 1.1. GFR is greater than 60. Glucose has remained elevated at 2 48-2 82 we will continue to monitor this and adjust insulin as needed. Magnesium is 2.2. Bilirubin 0.5. AST is 27, ALT 18, alkaline phosphatase 39. CRP is down to 5.6. Albumin is 2.2. We will continue remdesivir and dexamethasone. Patient's vitamin D level was within normal limits at 81.0 we will not start vitamin D supplementation. Patient is reporting significant joint pain and we will order as needed Aspercreme and scheduled Tylenol. Unknown length of stay due to severity of COVI D-19 illness.
[2021-06-12] MEDS: Azithromycin 500 MG in Sodium Chloride 0.9% 250 ML IV SCH (07:58)
[2021-06-12] MEDS: Acetaminophen 325 MG Tab PO PRN (08:10)
[2021-06-12] MEDS: Trospium 20 MG Tab PO SCH ×2 (08:54→21:23)
[2021-06-12] MEDS: Dexamethasone 4 MG Tab PO SCH (08:55)
[2021-06-12] MEDS: Finasteride 5 MG Tab PO SCH (08:58)
[2021-06-12] MEDS: Zinc Sulfate 220 MG Cap PO SCH (08:58)
[2021-06-12] MEDS: Ascorbic Acid 500 MG Tab PO SCH (08:58)
[2021-06-12] MEDS: Enoxaparin 40 MG/0.4 ML Syringe SUBCUT SCH (08:58)
[2021-06-12] MEDS: Insulin Regular, Human 100 Units/ML 3 ML Vial SUBCUT SCH ×4 (09:12→21:29)
[2021-06-12] MEDS: cefTRIAXone 2 GM in Sodium Chloride 0.9% 100 ML IV SCH (09:18)
[2021-06-12] MEDS: Albuterol/Ipratropium 3.0-0.5 MG/3 ML Neb Soln NEB PRN ×2 (09:34→20:24)
[2021-06-12] MEDS ORDERED: Acetaminophen 325 MG Tab PO SCH ×2 (11:00→14:00)
[2021-06-12] MEDS: Trolamine Salicylate/Aloe Vera 10% Crm 85 GM Tube TOP PRN ×2 (11:49→17:22)
[2021-06-12] MEDS: Acetaminophen 325 MG Tab PO SCH (15:36)
[2021-06-12] MEDS: Tamsulosin 0.4 MG Cap.ER PO SCH (21:19)
[2021-06-12] MEDS: REMDESIVIR 100 MG in Sodium Chloride 0.9% 100 ML IV SCH (21:19)
[2021-06-12] MEDS: Insulin Glargine,Hum.Rec.Anlog 100 UNIT/ML 3 ML Pen SUBCUT SCH (21:20)
[2021-06-13] MEDS: Acetaminophen 325 MG Tab PO SCH ×5 (00:22→23:54)
[2021-06-13] MEDS: Temazepam 15 MG Cap PO PRN ×2 (00:22→21:18)
[2021-06-13] MEDS: LEVODOPA PO SCH ×6 (00:24→22:34)
[2021-06-13] MEDS: CARBIDOPA PO SCH ×6 (00:24→22:34)
[2021-06-13] MEDS: Albuterol/Ipratropium 3.0-0.5 MG/3 ML Neb Soln NEB PRN ×3 (05:25→20:06)
[2021-06-13] MEDS ORDERED: Magnesium Hydroxide 400 MG/5 ML Susp 30 ML Cup PO ONE (06:00)
[2021-06-13] MEDS: Levothyroxine 50 MCG Tab PO SCH (06:17)
--- NOTE | 2021-06-13 06:40 | PCM.PN ---
- General Info Date of Service: 06/13/21 Admission Dx/Problem (Free Text): Admission Diagnosis/Problem Admission Diagnosis/Problem acute respiratory failure due to COVID-19 pneumonia. Functional Status: Reports: Pain Controlled, Tolerating Diet, Ambulating, Urinating, New Symptoms (Worseing respiratory status ), Incentive Spirometry, Other (Acapella ) - Review of Systems General: Reports: Weakness, Fatigue, Malaise. Denies: Fever, Chills HEENT: Reports: No Symptoms. Denies: Headaches, Sore Throat Pulmonary: Reports: Shortness of Breath, Pleuritic Chest Pain, Cough, Sputum. Denies: Wheezing Cardiovascular: Reports: Dyspnea on Exertion. Denies: Chest Pain, Palpitations, Edema Gastrointestinal: Reports: No Symptoms. Denies: Abdominal Pain, Constipation, Diarrhea, Nausea, Vomiting Genitourinary: Reports: No Symptoms. Denies: Pain Musculoskeletal: Reports: No Symptoms Skin: Reports: No Symptoms. Denies: Cyanosis Neurological: Reports: Confusion (Mild baseline), Pre-Existing Deficit (Parkinson's), Difficulty Walking, Weakness, Gait Disturbance. Denies: Headache, Numbness, Syncope, Tingling Psychiatric: Reports: No Symptoms - Patient Data Vitals - Most Recent: Last Vital Signs Temp 98.2 F 06/13/21 04:27 Pulse 68 06/13/21 04:27 Resp 24 H 06/13/21 04:27 BP 170/80 H 06/13/21 04:54 Pulse Ox 91 L 06/13/21 05:26 Weight - Most Recent: 239 lb 14.4 oz I&O - Last 24 Hours: Intake & Output 06/12/21 06/12/21 06/13/21 14:59 22:59 06:59 Intake Total 0 1180 800 Output Total 1325 425 Balance 0 -145 375 Lab Results Last 24 Hours: Laboratory Results - last 24 hr 06/12/21 06/12/21 06/12/21 Range/Units 06:05 06:05 08:56 WBC (4.23-9.07) K/mm3 RBC (4.63-6.08) M/mm3 Hgb (13.7-17.5) gm/dl Hct (40.1-51.0) % MCV (79.0-92.2) fl MCH (25.7-32.2) pg MCHC (32.2-35.5) g/dl RDW Std Deviation (35.1-43.9) fL Plt Count (163-337) K/mm3 MPV (9.4-12.3) fl Neut % (Auto) (34.0-67.9) % Lymph % (Auto) (21.8-53.1) % [place] % (Auto) (5.3-12.2) % Eos % (Auto) (0.8-7.0) Baso % (Auto) (0.1-1.2) % Neut # (Auto) (1.78-5.38) K/mm3 Lymph # (Auto) (1.32-3.57) K/mm3 [place] # (Auto) (0.30-0.82) K/mm3 Eos # (Auto) (0.04-0.54) K/mm3 Baso # (Auto) (0.01-0.08) K/mm3 Manual Slide Review Abnormal smear D-Dimer, Quantitative (0.19-0.50) mg/L Sodium 139 (136-145) mEq/L Potassium 4.4 (3.5-5.1) mEq/L Chloride 102 (98-107) mEq/L Carbon Dioxide 31 (21-32) mEq/L Anion Gap 10.4 (5-15) BUN 31 H (7-18) mg/dL Creatinine 1.1 (0.7-1.3) mg/dL Est Cr Clr Drug Dosing 70.58 mL/min Estimated GFR (MDRD) > 60 (>60) mL/min BUN/Creatinine Ratio 28.2 H (14-18) Glucose 265 H (70-99) mg/dL POC Glucose 238 H (70-99) mg/dL Calcium 8.4 L (8.5-10.1) mg/dL Magnesium 2.2 (1.8-2.4) mg/dL Total Bilirubin 0.5 (0.2-1.0) mg/dL AST 27 (15-37) U/L ALT 18 (16-63) U/L Alkaline Phosphatase 39 L (46-116) U/L C-Reactive Protein 5.6 H* (<1.0) mg/dL Total Protein 6.3 L (6.4-8.2) g/dl Albumin 2.2 L (3.4-5.0) g/dl Globulin 4.1 gm/dL Albumin/Globulin Ratio 0.5 L (1-2) Urine Color (Yellow) Urine Appearance (Clear) Urine pH (5.0-8.0) Ur Specific [place] (1.005-1.030) Urine Protein (Negative) Urine Glucose (UA) (Negative) Urine Ketones (Negative) Urine Occult Blood (Negative) Urine Nitrite (Negative) Urine Bilirubin (Negative) Urine Urobilinogen (0.2-1.0) Ur Leukocyte Esterase (Negative) Urine RBC (0-5) /hpf Urine WBC (0-5) /hpf Ur Squamous Epith Cells (0-5) /hpf Urine Bacteria (FEW) /hpf Urine Mucus (FEW) /hpf 06/12/21 06/12/21 06/12/21 Range/Units 11:47 14:28 17:17 WBC (4.23-9.07) K/mm3 RBC (4.63-6.08) M/mm3 Hgb (13.7-17.5) gm/dl Hct (40.1-51.0) % MCV (79.0-92.2) fl MCH (25.7-32.2) pg MCHC (32.2-35.5) g/dl RDW Std Deviation (35.1-43.9) fL Plt Count (163-337) K/mm3 MPV (9.4-12.3) fl Neut % (Auto) (34.0-67.9) % Lymph % (Auto) (21.8-53.1) % [place] % (Auto) (5.3-12.2) % Eos % (Auto) (0.8-7.0) Baso % (Auto) (0.1-1.2) % Neut # (Auto) (1.78-5.38) K/mm3 Lymph # (Auto) (1.32-3.57) K/mm3 [place] # (Auto) (0.30-0.82) K/mm3 Eos # (Auto) (0.04-0.54) K/mm3 Baso # (Auto) (0.01-0.08) K/mm3 Manual Slide Review D-Dimer, Quantitative (0.19-0.50) mg/L Sodium (136-145) mEq/L Potassium (3.5-5.1) mEq/L Chloride (98-107) mEq/L Carbon Dioxide (21-32) mEq/L Anion Gap (5-15) BUN (7-18) mg/dL Creatinine (0.7-1.3) mg/dL Est Cr Clr Drug Dosing mL/min Estimated GFR (MDRD) (>60) mL/min BUN/Creatinine Ratio (14-18) Glucose (70-99) mg/dL POC Glucose 300 H 219 H (70-99) mg/dL Calcium (8.5-10.1) mg/dL Magnesium (1.8-2.4) mg/dL Total Bilirubin (0.2-1.0) mg/dL AST (15-37) U/L ALT (16-63) U/L Alkaline Phosphatase (46-116) U/L C-Reactive Protein (<1.0) mg/dL Total Protein (6.4-8.2) g/dl Albumin (3.4-5.0) g/dl Globulin gm/dL Albumin/Globulin Ratio (1-2) Urine Color Yellow (Yellow) Urine Appearance Clear (Clear) Urine pH 6.0 (5.0-8.0) Ur Specific [place] 1.025 (1.005-1.030) Urine Protein 1+ H (Negative) Urine Glucose (UA) 2+ H (Negative) Urine Ketones Trace H (Negative) Urine Occult Blood Negative (Negative) Urine Nitrite Negative (Negative) Urine Bilirubin Negative (Negative) Urine Urobilinogen 0.2 (0.2-1.0) Ur Leukocyte Esterase Negative (Negative) Urine RBC 0-5 (0-5) /hpf Urine WBC 0-5 (0-5) /hpf Ur Squamous Epith Cells 0-5 (0-5) /hpf Urine Bacteria Few (FEW) /hpf Urine Mucus Few (FEW) /hpf 06/12/21 06/13/21 06/13/21 Range/Units 20:58 05:20 05:20 WBC 4.54 (4.23-9.07) K/mm3 RBC 4.37 L (4.63-6.08) M/mm3 Hgb 13.2 L (13.7-17.5) gm/dl Hct 41.8 (40.1-51.0) % MCV 95.7 H (79.0-92.2) fl MCH 30.2 (25.7-32.2) pg MCHC 31.6 L (32.2-35.5) g/dl RDW Std Deviation 48.2 H (35.1-43.9) fL Plt Count 200 (163-337) K/mm3 MPV 10.7 (9.4-12.3) fl Neut % (Auto) 84.8 H (34.0-67.9) % Lymph % (Auto) 9.9 L (21.8-53.1) % [place] % (Auto) 5.1 L (5.3-12.2) % Eos % (Auto) 0 L (0.8-7.0) Baso % (Auto) 0.0 L (0.1-1.2) % Neut # (Auto) 3.85 (1.78-5.38) K/mm3 Lymph # (Auto) 0.45 L (1.32-3.57) K/mm3 [place] # (Auto) 0.23 L (0.30-0.82) K/mm3 Eos # (Auto) 0.00 L (0.04-0.54) K/mm3 Baso # (Auto) 0.00 L (0.01-0.08) K/mm3 Manual Slide Review D-Dimer, Quantitative 6.74 H (0.19-0.50) mg/L Sodium (136-145) mEq/L Potassium (3.5-5.1) mEq/L Chloride (98-107) mEq/L Carbon Dioxide (21-32) mEq/L Anion Gap (5-15) BUN (7-18) mg/dL Creatinine (0.7-1.3) mg/dL Est Cr Clr Drug Dosing mL/min Estimated GFR (MDRD) (>60) mL/min BUN/Creatinine Ratio (14-18) Glucose (70-99) mg/dL POC Glucose 225 H (70-99) mg/dL Calcium (8.5-10.1) mg/dL Magnesium (1.8-2.4) mg/dL Total Bilirubin (0.2-1.0) mg/dL AST (15-37) U/L ALT (16-63) U/L Alkaline Phosphatase (46-116) U/L C-Reactive Protein (<1.0) mg/dL Total Protein (6.4-8.2) g/dl Albumin (3.4-5.0) g/dl Globulin gm/dL Albumin/Globulin Ratio (1-2) Urine Color (Yellow) Urine Appearance (Clear) Urine pH (5.0-8.0) Ur Specific [place] (1.005-1.030) Urine Protein (Negative) Urine Glucose (UA) (Negative) Urine Ketones (Negative) Urine Occult Blood (Negative) Urine Nitrite (Negative) Urine Bilirubin (Negative) Urine Urobilinogen (0.2-1.0) Ur Leukocyte Esterase (Negative) Urine RBC (0-5) /hpf Urine WBC (0-5) /hpf Ur Squamous Epith Cells (0-5) /hpf Urine Bacteria (FEW) /hpf Urine Mucus (FEW) /hpf 06/13/21 Range/Units 05:20 WBC (4.23-9.07) K/mm3 RBC (4.63-6.08) M/mm3 Hgb (13.7-17.5) gm/dl Hct (40.1-51.0) % MCV (79.0-92.2) fl MCH (25.7-32.2) pg MCHC (32.2-35.5) g/dl RDW Std Deviation (35.1-43.9) fL Plt Count (163-337) K/mm3 MPV (9.4-12.3) fl Neut % (Auto) (34.0-67.9) % Lymph % (Auto) (21.8-53.1) % [place] % (Auto) (5.3-12.2) % Eos % (Auto) (0.8-7.0) Baso % (Auto) (0.1-1.2) % Neut # (Auto) (1.78-5.38) K/mm3 Lymph # (Auto) (1.32-3.57) K/mm3 [place] # (Auto) (0.30-0.82) K/mm3 Eos # (Auto) (0.04-0.54) K/mm3 Baso # (Auto) (0.01-0.08) K/mm3 Manual Slide Review D-Dimer, Quantitative (0.19-0.50) mg/L Sodium 140 (136-145) mEq/L Potassium 4.6 (3.5-5.1) mEq/L Chloride 102 (98-107) mEq/L Carbon Dioxide 32 (21-32) mEq/L Anion Gap 10.6 (5-15) BUN 24 H (7-18) mg/dL Creatinine 1.0 (0.7-1.3) mg/dL Est Cr Clr Drug Dosing 77.63 mL/min Estimated GFR (MDRD) > 60 (>60) mL/min BUN/Creatinine Ratio 24.0 H (14-18) Glucose 176 H (70-99) mg/dL POC Glucose (70-99) mg/dL Calcium 8.3 L (8.5-10.1) mg/dL Magnesium 1.9 (1.8-2.4) mg/dL Total Bilirubin 0.5 (0.2-1.0) mg/dL AST 28 (15-37) U/L ALT 7 L (16-63) U/L Alkaline Phosphatase 41 L (46-116) U/L C-Reactive Protein 3.0 H* (<1.0) mg/dL Total Protein 6.2 L (6.4-8.2) g/dl Albumin 2.2 L (3.4-5.0) g/dl Globulin 4.0 gm/dL Albumin/Globulin Ratio 0.6 L (1-2) Urine Color (Yellow) Urine Appearance (Clear) Urine pH (5.0-8.0) Ur Specific [place] (1.005-1.030) Urine Protein (Negative) Urine Glucose (UA) (Negative) Urine Ketones (Negative) Urine Occult Blood (Negative) Urine Nitrite (Negative) Urine Bilirubin (Negative) Urine Urobilinogen (0.2-1.0) Ur Leukocyte Esterase (Negative) Urine RBC (0-5) /hpf Urine WBC (0-5) /hpf Ur Squamous Epith Cells (0-5) /hpf Urine Bacteria (FEW) /hpf Urine Mucus (FEW) /hpf Med Orders - Current: Current Medications Acetaminophen (Acetaminophen 325 Mg Tab) 650 mg PO Q8H [facility] Last Admin: 06/13/21 00:22 Dose: 650 mg Documented by: Al Hydroxide/Mg Hydroxide (Aluminum Hydroxide/Magnesium Hydroxide/Simethicone S mcc 30 Ml Cup) 30 ml PO Q4H PRN PRN Reason: Heartburn Albuterol (Albuterol 6.7 Gm Inhaler) 0 gm INH QID PRN PRN Reason: SOB/Wheezing Albuterol/Ipratropium (Albuterol/Ipratropium 3.0-0.5 Mg/3 Ml Neb Soln) 3 ml NEB Q4H PRN PRN Reason: Shortness Of Breath/wheezing Last Admin: 06/13/21 05:25 Dose: 3 ml Documented by: Alogliptin Benzoate (Alogliptin 12.5 Mg Tab) 12.5 mg PO BIDMEALS [facility] Last Admin: 06/13/21 06:17 Dose: 12.5 mg Documented by: Ascorbic Acid (Ascorbic Acid 500 Mg Tab) 500 mg PO DAILY [facility] Last Admin: 06/12/21 08:58 Dose: 500 mg Documented by: Dexamethasone (Dexamethasone 4 Mg Tab) 6 mg PO DAILY [facility] Stop: 06/18/21 09:01 Last Admin: 06/12/21 08:55 Dose: 6 mg Documented by: Docusate Sodium (Docusate Sodium 100 Mg Cap) 100 mg PO BID PRN PRN Reason: Constipation Enoxaparin Sodium (Enoxaparin 40 Mg/0.4 Ml Syringe) 40 mg SUBCUT DAILY [facility] Last Admin: 06/12/21 08:58 Dose: 40 mg Documented by: Finasteride (Finasteride 5 Mg Tab) 5 mg PO DAILY [facility] Last Admin: 06/12/21 08:58 Dose: 5 mg Documented by: Guaifenesin/Phenylephrine HCl (Guaifenesin/Dextromethorphan 100-10 Mg/5 Ml Soln 5 Ml Cup) 10 ml PO Q6H PRN PRN Reason: Cough Remdesivir 100 mg/ Sodium (Chloride) 100 mls @ 100 mls/hr IV Q24H [facility] Stop: 06/13/21 21:59 Last Admin: 06/12/21 21:19 Dose: 100 mls/hr Documented by: Ceftriaxone Sodium 2 gm/ (Sodium Chloride) 100 mls @ 200 mls/hr IV Q24H [facility] Last Admin: 06/12/21 09:18 Dose: 200 mls/hr Documented by: Azithromycin 500 mg/ Sodium (Chloride) 250 mls @ 250 mls/hr IV Q24H [facility] Last Admin: 06/12/21 07:58 Dose: 250 mls/hr Documented by: Insulin Glargine (Insulin Glargine,Hum.Rec.Anlog 100 Unit/Ml 3 Ml Pen) 32 unit SUBCUT BEDTIME [facility] Last Admin: 06/12/21 21:20 Dose: 32 unit Documented by: Insulin Human Regular (Insulin Regular, Human 100 Units/Ml 3 Ml Vial) 0 unit SUBCUT QIDACANDBED [facility]; Protocol Last Admin: 06/12/21 21:29 Dose: 6 unit Documented by: Levothyroxine Sodium (Levothyroxine 50 Mcg Tab) 50 mcg PO ACBREAKFAST [facility] Last Admin: 06/13/21 06:17 Dose: 50 mcg Documented by: Carbidopa/Levodopa 25-250 Tab Own Med 1 tab PO 0600,1100,1500,1900,2300 [facility] Last Admin: 06/13/21 06:26 Dose: 1 tab Documented by: Ondansetron HCl (Ondansetron 4 Mg Tab.Dis) 4 mg PO Q4H PRN PRN Reason: nausea, able to take PO Oxycodone HCl (Oxycodone 5 Mg Tab) 5 mg PO Q4H PRN PRN Reason: Pain (moderate 4-6) Last Admin: 06/12/21 22:22 Dose: 5 mg Documented by: Sodium Chloride (Sodium Chloride 0.9% 10 Ml Syringe) 10 ml FLUSH ASDIRECTED PRN PRN Reason: Keep Vein Open Last Admin: 06/10/21 00:24 Dose: 10 ml Documented by: Tamsulosin HCl (Tamsulosin 0.4 Mg Cap.Er) 0.4 mg PO BEDTIME [facility] Last Admin: 06/12/21 21:19 Dose: 0.4 mg Documented by: Temazepam (Temazepam 15 Mg Cap) 15 mg PO BEDTIME PRN PRN Reason: Sleep Last Admin: 06/13/21 00:22 Dose: 15 mg Documented by: Trolamine Salicylate (Trolamine Salicylate/Aloe Vera 10% Crm 85 Gm Tube) 1 gm TOP Q2H PRN PRN Reason: Pain (moderate 4-6) Last Admin: 06/12/21 17:22 Dose: 1 applic Documented by: Trospium (Trospium 20 Mg Tab) 20 mg PO BID [facility] Last Admin: 06/12/21 21:23 Dose: 20 mg Documented by: Zinc Sulfate (Zinc Sulfate 220 Mg Cap) 220 mg PO DAILY [facility] Last Admin: 06/12/21 08:58 Dose: 220 mg Documented by: Discontinued Medications Acetaminophen (Acetaminophen 325 Mg Tab) 975 mg PO NOW ONE Stop: 06/09/21 21:16 Last Admin: 06/09/21 21:41 Dose: 350 mg Documented by: Acetaminophen (Acetaminophen 650 Mg Supp) 650 mg RECTAL NOW ONE Stop: 06/09/21 21:52 Last Admin: 06/09/21 22:30 Dose: 650 mg Documented by: Acetaminophen (Acetaminophen 325 Mg Tab) 650 mg PO Q4H PRN PRN Reason: Pain (Mild 1-3)/fever Last Admin: 06/12/21 08:10 Dose: 650 mg Documented by: Acetaminophen (Acetaminophen 325 Mg Tab) 975 mg PO Q8HR [facility] Acetaminophen (Acetaminophen 325 Mg Tab) 650 mg PO Q8H [facility] Last Admin: 06/12/21 11:51 Dose: Not Given Documented by: Carbidopa/Levodopa (Carbidopa/Levodopa 25-100 Mg Tab) 1 tab PO QID [facility] Last Admin: 06/10/21 16:54 Dose: 1 tab Documented by: Dexamethasone (Dexamethasone 4 Mg/Ml 5 Ml Mdv) 6 mg IV ONETIME ONE Stop: 06/10/21 00:53 Last Admin: 06/10/21 01:31 Dose: 6 mg Documented by: Glimepiride (Glimepiride 2 Mg Tab) 4 mg PO DAILY [facility] Last Admin: 06/10/21 09:51 Dose: 4 mg Documented by: Glimepiride (Glimepiride 2 Mg Tab) 2 mg PO WITHBREAKFAST [facility] Last Admin: 06/11/21 06:05 Dose: 2 mg Documented by: Sodium Chloride (Normal Saline) 1,000 mls @ 250 mls/hr IV ONETIME ONE Stop: 06/10/21 01:14 Last Infusion: 06/09/21 21:41 Dose: 250 mls/hr Documented by: Sodium Chloride (Normal Saline) Confirm Administered Dose 1,000 mls @ as directed .ROUTE .STK-MED ONE Stop: 06/09/21 21:19 Last Admin: 06/10/21 01:11 Dose: Not Given Documented by: Remdesivir 200 mg/ Sodium (Chloride) 250 mls @ 250 mls/hr IV ONETIME ONE Stop: 06/10/21 00:53 Last Admin: 06/10/21 01:47 Dose: 250 mls/hr Documented by: Ceftriaxone Sodium 1 gm/ (Sodium Chloride) 100 mls @ 200 mls/hr IV Q24H [facility] Last Admin: 06/11/21 09:01 Dose: 200 mls/hr Documented by: Insulin Glargine (Insulin Glarg,Human.Rec.Analog 100 Unit/Ml) 24 unit SUBCUT BEDTIME [facility] Insulin Glargine (Insulin Glargine,Hum.Rec.Anlog 100 Unit/Ml 3 Ml Pen) 24 unit SUBCUT BEDTIME [facility] Last Admin: 06/10/21 21:05 Dose: 24 units Documented by: Insulin Glargine (Insulin Glargine,Hum.Rec.Anlog 100 Unit/Ml 3 Ml Pen) 28 unit SUBCUT BEDTIME [facility] Last Admin: 06/11/21 21:21 Dose: 28 units Documented by: Insulin Human Isoph/Insulin Regular (Insulin Nph/Insulin Regular,Human 70-30 100 Units/Ml 10 Ml Vial) 0 units SUBCUT BIDAC [facility]; Protocol Last Admin: 06/10/21 02:36 Dose: Not Given Documented by: Insulin Human Lispro (Insulin Lispro 100 Unit/Ml 3 Ml Kwikpen) 0 unit SUBCUT QIDACANDBED [facility]; Protocol Last Admin: 06/10/21 12:15 Dose: Not Given Documented by: Insulin Human Regular (Insulin Regular, Human 100 Units/Ml 3 Ml Vial) 0 unit SUBCUT TIDPC [facility]; Protocol Last Admin: 06/12/21 09:12 Dose: 6 unit Documented by: Iopamidol (Iopamidol 755 Mg/Ml 100 Ml Bottle) 100 ml IVPUSH ONETIME ONE Stop: 06/09/21 23:54 Last Admin: 06/10/21 00:24 Dose: 100 ml Documented by: Magnesium Hydroxide (Magnesium Hydroxide 400 Mg/5 Ml Susp 30 Ml Cup) 30 ml PO ONETIME ONE Stop: 06/13/21 06:01 Last Admin: 06/13/21 06:18 Dose: 30 ml Documented by: Metformin HCl (Metformin 500 Mg Tab) 1,000 mg PO BIDMEALS [facility] Last Admin: 06/11/21 06:06 Dose: 1,000 mg Documented by: Morphine Sulfate (Morphine 2 Mg/Ml Syringe) 2 mg IVPUSH Q2H PRN PRN Reason: Pain (severe 7-10) Stop: 06/11/21 07:46 Non-Formulary Medication (Tresiba) 24 units SQ ONETIME ONE Stop: 06/10/21 03:46 Last Admin: 06/10/21 03:45 Dose: 24 units Documented by: Carbidopa/Levodopa 25-250 Tab Own Med 1 tab PO 0600,1100,1500,1900,2300 [facility] Last Admin: 06/11/21 05:29 Dose: 1 tab Documented by: Non-Formulary Medication (Sitagliptin Phos/Metformin Hcl [Janumet 50-1,000 Mg]) 1 tab PO BID [facility] Non-Formulary Medication (Non-Formulary Medication 1 Each) 1 each PO BID [facility] Trospium (Trospium 20 Mg Tab) 10 mg PO BID [facility] Last Admin: 06/10/21 21:03 Dose: 10 mg Documented by: - Exam Quality Assessment: Supplemental Oxygen (High flow 55 L with FiO2 of 85%), DVT Prophylaxis. No: Urine Catheter General: Alert, Oriented, Cooperative, No Acute Distress HEENT: Pupils Equal, Pupils Reactive, Mucous Membr. Moist/[place]: Supple, Trachea Midline Lungs: Decreased Breath Sounds, Crackles. No: Normal Respiratory Effort (Tachypnea), Rhonchi, Wheezing Cardiovascular: Regular Rate, Regular Rhythm GI/Abdominal Exam: Normal Bowel Sounds, Soft, Non-Tender, No Distention (Male) Exam: Deferred Back Exam: Normal Inspection, Decreased Range of Motion Extremities: Normal Inspection, Normal Range of Motion, Non-Tender, No Pedal Edema, Normal Capillary Refill Skin: Warm, Dry, Intact Neurological: No New Focal Deficit Psy/Mental Status: Alert, Normal Affect, Normal Mood - Patient Data Lab Results Last 24 hrs: Laboratory Results - last 24 hr 06/12/21 06/12/21 06/12/21 Range/Units 06:05 06:05 08:56 WBC (4.23-9.07) K/mm3 RBC (4.63-6.08) M/mm3 Hgb (13.7-17.5) gm/dl Hct (40.1-51.0) % MCV (79.0-92.2) fl MCH (25.7-32.2) pg MCHC (32.2-35.5) g/dl RDW Std Deviation (35.1-43.9) fL Plt Count (163-337) K/mm3 MPV (9.4-12.3) fl Neut % (Auto) (34.0-67.9) % Lymph % (Auto) (21.8-53.1) % [place] % (Auto) (5.3-12.2) % Eos % (Auto) (0.8-7.0) Baso % (Auto) (0.1-1.2) % Neut # (Auto) (1.78-5.38) K/mm3 Lymph # (Auto) (1.32-3.57) K/mm3 [place] # (Auto) (0.30-0.82) K/mm3 Eos # (Auto) (0.04-0.54) K/mm3 Baso # (Auto) (0.01-0.08) K/mm3 Manual Slide Review Abnormal smear D-Dimer, Quantitative (0.19-0.50) mg/L Sodium 139 (136-145) mEq/L Potassium 4.4 (3.5-5.1) mEq/L Chloride 102 (98-107) mEq/L Carbon Dioxide 31 (21-32) mEq/L Anion Gap 10.4 (5-15) BUN 31 H (7-18) mg/dL Creatinine 1.1 (0.7-1.3) mg/dL Est Cr Clr Drug Dosing 70.58 mL/min Estimated GFR (MDRD) > 60 (>60) mL/min BUN/Creatinine Ratio 28.2 H (14-18) Glucose 265 H (70-99) mg/dL POC Glucose 238 H (70-99) mg/dL Calcium 8.4 L (8.5-10.1) mg/dL Magnesium 2.2 (1.8-2.4) mg/dL Total Bilirubin 0.5 (0.2-1.0) mg/dL AST 27 (15-37) U/L ALT 18 (16-63) U/L Alkaline Phosphatase 39 L (46-116) U/L C-Reactive Protein 5.6 H* (<1.0) mg/dL Total Protein 6.3 L (6.4-8.2) g/dl Albumin 2.2 L (3.4-5.0) g/dl Globulin 4.1 gm/dL Albumin/Globulin Ratio 0.5 L (1-2) Urine Color (Yellow) Urine Appearance (Clear) Urine pH (5.0-8.0) Ur Specific [place] (1.005-1.030) Urine Protein (Negative) Urine Glucose (UA) (Negative) Urine Ketones (Negative) Urine Occult Blood (Negative) Urine Nitrite (Negative) Urine Bilirubin (Negative) Urine Urobilinogen (0.2-1.0) Ur Leukocyte Esterase (Negative) Urine RBC (0-5) /hpf Urine WBC (0-5) /hpf Ur Squamous Epith Cells (0-5) /hpf Urine Bacteria (FEW) /hpf Urine Mucus (FEW) /hpf 06/12/21 06/12/21 06/12/21 Range/Units 11:47 14:28 17:17 WBC (4.23-9.07) K/mm3 RBC (4.63-6.08) M/mm3 Hgb (13.7-17.5) gm/dl Hct (40.1-51.0) % MCV (79.0-92.2) fl MCH (25.7-32.2) pg MCHC (32.2-35.5) g/dl RDW Std Deviation (35.1-43.9) fL Plt Count (163-337) K/mm3 MPV (9.4-12.3) fl Neut % (Auto) (34.0-67.9) % Lymph % (Auto) (21.8-53.1) % [place] % (Auto) (5.3-12.2) % Eos % (Auto) (0.8-7.0) Baso % (Auto) (0.1-1.2) % Neut # (Auto) (1.78-5.38) K/mm3 Lymph # (Auto) (1.32-3.57) K/mm3 [place] # (Auto) (0.30-0.82) K/mm3 Eos # (Auto) (0.04-0.54) K/mm3 Baso # (Auto) (0.01-0.08) K/mm3 Manual Slide Review D-Dimer, Quantitative (0.19-0.50) mg/L Sodium (136-145) mEq/L Potassium (3.5-5.1) mEq/L Chloride (98-107) mEq/L Carbon Dioxide (21-32) mEq/L Anion Gap (5-15) BUN (7-18) mg/dL Creatinine (0.7-1.3) mg/dL Est Cr Clr Drug Dosing mL/min Estimated GFR (MDRD) (>60) mL/min BUN/Creatinine Ratio (14-18) Glucose (70-99) mg/dL POC Glucose 300 H 219 H (70-99) mg/dL Calcium (8.5-10.1) mg/dL Magnesium (1.8-2.4) mg/dL Total Bilirubin (0.2-1.0) mg/dL AST (15-37) U/L ALT (16-63) U/L Alkaline Phosphatase (46-116) U/L C-Reactive Protein (<1.0) mg/dL Total Protein (6.4-8.2) g/dl Albumin (3.4-5.0) g/dl Globulin gm/dL Albumin/Globulin Ratio (1-2) Urine Color Yellow (Yellow) Urine Appearance Clear (Clear) Urine pH 6.0 (5.0-8.0) Ur Specific [place] 1.025 (1.005-1.030) Urine Protein 1+ H (Negative) Urine Glucose (UA) 2+ H (Negative) Urine Ketones Trace H (Negative) Urine Occult Blood Negative (Negative) Urine Nitrite Negative (Negative) Urine Bilirubin Negative (Negative) Urine Urobilinogen 0.2 (0.2-1.0) Ur Leukocyte Esterase Negative (Negative) Urine RBC 0-5 (0-5) /hpf Urine WBC 0-5 (0-5) /hpf Ur Squamous Epith Cells 0-5 (0-5) /hpf Urine Bacteria Few (FEW) /hpf Urine Mucus Few (FEW) /hpf 06/12/21 06/13/21 06/13/21 Range/Units 20:58 05:20 05:20 WBC 4.54 (4.23-9.07) K/mm3 RBC 4.37 L (4.63-6.08) M/mm3 Hgb 13.2 L (13.7-17.5) gm/dl Hct 41.8 (40.1-51.0) % MCV 95.7 H (79.0-92.2) fl MCH 30.2 (25.7-32.2) pg MCHC 31.6 L (32.2-35.5) g/dl RDW Std Deviation 48.2 H (35.1-43.9) fL Plt Count 200 (163-337) K/mm3 MPV 10.7 (9.4-12.3) fl Neut % (Auto) 84.8 H (34.0-67.9) % Lymph % (Auto) 9.9 L (21.8-53.1) % [place] % (Auto) 5.1 L (5.3-12.2) % Eos % (Auto) 0 L (0.8-7.0) Baso % (Auto) 0.0 L (0.1-1.2) % Neut # (Auto) 3.85 (1.78-5.38) K/mm3 Lymph # (Auto) 0.45 L (1.32-3.57) K/mm3 [place] # (Auto) 0.23 L (0.30-0.82) K/mm3 Eos # (Auto) 0.00 L (0.04-0.54) K/mm3 Baso # (Auto) 0.00 L (0.01-0.08) K/mm3 Manual Slide Review D-Dimer, Quantitative 6.74 H (0.19-0.50) mg/L Sodium (136-145) mEq/L Potassium (3.5-5.1) mEq/L Chloride (98-107) mEq/L Carbon Dioxide (21-32) mEq/L Anion Gap (5-15) BUN (7-18) mg/dL Creatinine (0.7-1.3) mg/dL Est Cr Clr Drug Dosing mL/min Estimated GFR (MDRD) (>60) mL/min BUN/Creatinine Ratio (14-18) Glucose (70-99) mg/dL POC Glucose 225 H (70-99) mg/dL Calcium (8.5-10.1) mg/dL Magnesium (1.8-2.4) mg/dL Total Bilirubin (0.2-1.0) mg/dL AST (15-37) U/L ALT (16-63) U/L Alkaline Phosphatase (46-116) U/L C-Reactive Protein (<1.0) mg/dL Total Protein (6.4-8.2) g/dl Albumin (3.4-5.0) g/dl Globulin gm/dL Albumin/Globulin Ratio (1-2) Urine Color (Yellow) Urine Appearance (Clear) Urine pH (5.0-8.0) Ur Specific [place] (1.005-1.030) Urine Protein (Negative) Urine Glucose (UA) (Negative) Urine Ketones (Negative) Urine Occult Blood (Negative) Urine Nitrite (Negative) Urine Bilirubin (Negative) Urine Urobilinogen (0.2-1.0) Ur Leukocyte Esterase (Negative) Urine RBC (0-5) /hpf Urine WBC (0-5) /hpf Ur Squamous Epith Cells (0-5) /hpf Urine Bacteria (FEW) /hpf Urine Mucus (FEW) /hpf 06/13/21 Range/Units 05:20 WBC (4.23-9.07) K/mm3 RBC (4.63-6.08) M/mm3 Hgb (13.7-17.5) gm/dl Hct (40.1-51.0) % MCV (79.0-92.2) fl MCH (25.7-32.2) pg MCHC (32.2-35.5) g/dl RDW Std Deviation (35.1-43.9) fL Plt Count (163-337) K/mm3 MPV (9.4-12.3) fl Neut % (Auto) (34.0-67.9) % Lymph % (Auto) (21.8-53.1) % [place] % (Auto) (5.3-12.2) % Eos % (Auto) (0.8-7.0) Baso % (Auto) (0.1-1.2) % Neut # (Auto) (1.78-5.38) K/mm3 Lymph # (Auto) (1.32-3.57) K/mm3 [place] # (Auto) (0.30-0.82) K/mm3 Eos # (Auto) (0.04-0.54) K/mm3 Baso # (Auto) (0.01-0.08) K/mm3 Manual Slide Review D-Dimer, Quantitative (0.19-0.50) mg/L Sodium 140 (136-145) mEq/L Potassium 4.6 (3.5-5.1) mEq/L Chloride 102 (98-107) mEq/L Carbon Dioxide 32 (21-32) mEq/L Anion Gap 10.6 (5-15) BUN 24 H (7-18) mg/dL Creatinine 1.0 (0.7-1.3) mg/dL Est Cr Clr Drug Dosing 77.63 mL/min Estimated GFR (MDRD) > 60 (>60) mL/min BUN/Creatinine Ratio 24.0 H (14-18) Glucose 176 H (70-99) mg/dL POC Glucose (70-99) mg/dL Calcium 8.3 L (8.5-10.1) mg/dL Magnesium 1.9 (1.8-2.4) mg/dL Total Bilirubin 0.5 (0.2-1.0) mg/dL AST 28 (15-37) U/L ALT 7 L (16-63) U/L Alkaline Phosphatase 41 L (46-116) U/L C-Reactive Protein 3.0 H* (<1.0) mg/dL Total Protein 6.2 L (6.4-8.2) g/dl Albumin 2.2 L (3.4-5.0) g/dl Globulin 4.0 gm/dL Albumin/Globulin Ratio 0.6 L (1-2) Urine Color (Yellow) Urine Appearance (Clear) Urine pH (5.0-8.0) Ur Specific Tab[place] (1.005-1.030) Urine Protein (Negative) Urine Glucose (UA) (Negative) Urine Ketones (Negative) Urine Occult Blood (Negative) Urine Nitrite (Negative) Urine Bilirubin (Negative) Urine Urobilinogen (0.2-1.0) Ur Leukocyte Esterase (Negative) Urine RBC (0-5) /hpf Urine WBC (0-5) /hpf Ur Squamous Epith Cells (0-5) /hpf Urine Bacteria (FEW) /hpf Urine Mucus (FEW) /hpf Result Diagrams: 06/13/21 05:20 06/13/21 05:20 Sepsis Event Note - Evaluation Sepsis Screening Result: No Definite Risk - Focused Exam Vital Signs: Vital Signs Temp Pulse Resp BP BP Pulse Ox Pulse Ox 06/13/21 05:26 91 L 06/13/21 04:54 170/80 H 84 L 06/13/21 04:27 98.2 F 68 24 H 81 L 06/12/21 23:57 98.8 F 62 32 H 155/76 H 89 L 06/12/21 20:24 06/12/21 19:31 97.2 F 51 L 32 H 149/73 H 90 L Pulse Ox 06/13/21 05:26 06/13/21 04:54 06/13/21 04:27 06/12/21 23:57 06/12/21 20:24 91 L 06/12/21 19:31 - Problem List & Annotations (1) Acute respiratory failure due to COVID-19 SNOMED Code(s): 404118075 Code(s): U07.1 - COVID-19; J96.00 - ACUTE RESPIRATORY FAILURE, UNSP W HYPOXIA OR HYPERCAPNIA Status: Acute Priority: High Current Visit: Yes (2) Pneumonia due to COVID-19 virus SNOMED Code(s): 379203617434376134 Code(s): U07.1 - COVID-19; J12.82 - PNEUMONIA DUE TO CORONAVIRUS DISEASE 2018 Status: Acute Priority: High Current Visit: Yes (3) Diabetes mellitus type 2 in nonobese SNOMED Code(s): 945103083 Code(s): E11.9 - TYPE 2 DIABETES MELLITUS WITHOUT COMPLICATIONS Status: Chronic Priority: High Current Visit: Yes (4) Parkinson's disease dementia SNOMED Code(s): 028285567349173 Code(s): G20 - PARKINSON'S DISEASE; F02.80 - DEMENTIA IN OTH DISEASES CLASSD ELSWHR W/O BEHAVRL DISTURB Status: Chronic Priority: High Current Visit: Yes Qualifiers: Dementia behavioral disturbance: without behavioral disturbance Qualified Code(s): G20 - Parkinson's disease; F02.80 - Dementia in other diseases classified elsewhere without behavioral disturbance (5) Elevated C-reactive protein (CRP) SNOMED Code(s): 093084911662324 Code(s): R79.82 - ELEVATED C-REACTIVE PROTEIN (CRP) Status: Acute Priority: High Current Visit: Yes (6) Elevated d-dimer SNOMED Code(s): 634772109 Code(s): R79.89 - OTHER SPECIFIED ABNORMAL FINDINGS OF BLOOD CHEMISTRY Status: Acute Priority: High Current Visit: Yes (7) Elevated procalcitonin SNOMED Code(s): 029294126, 773013082 Code(s): R79.89 - OTHER SPECIFIED ABNORMAL FINDINGS OF BLOOD CHEMISTRY Status: Acute Priority: High Current Visit: Yes - Problem List Review Problem List Initiated/Reviewed/Updated: Yes - My Orders Last 24 Hours: My Active Orders 06/12/21 08:00 Azithromycin [Zithromax] 500 mg Sodium Chloride 0.9% [Normal Saline AdvBag] 250 ml IV Q24H 06/12/21 09:00 Ascorbic Acid [Vitamin C] 500 mg PO DAILY Zinc Sulfate [Zincate] 220 mg PO DAILY cefTRIAXone [Rocephin] 2 gm Sodium Chloride 0.9% [Normal Saline AdvBag] 100 ml IV Q24H 06/12/21 09:32 Trolamine Salicylate/Aloe Vera [Aspercreme 10%] 1 gm TOP Q2H PRN 06/12/21 16:00 Acetaminophen [TylenoL] 650 mg PO Q8H 06/12/21 17:00 Insulin Regular, Human [HumuLIN R] See Protocol SUBCUT QIDACANDBED 06/12/21 21:00 Insulin Glargine,Hum.Rec.Anlog [Semglee Pen] 32 unit SUBCUT BEDTIME 06/13/21 05:20 CBC WITH AUTO DIFF [HEME] AM 06/14/21 05:11 CBC WITH AUTO DIFF [HEME] AM CMP [COMPREHENSIVE METABOLIC PN,CMP] [CHEM] AM CRP [C-REACTIVE PROTEIN] [CHEM] AM MAGNESIUM [CHEM] AM 06/15/21 05:11 CBC WITH AUTO DIFF [HEME] AM CMP [COMPREHENSIVE METABOLIC PN,CMP] [CHEM] AM CRP [C-REACTIVE PROTEIN] [CHEM] AM DD [D-DIMER QUANTITATIVE] [COAG] Q48H MAGNESIUM [CHEM] AM - Plan Plan:: The patient is a 71-year-old gentleman who has been admitted to acute hospitalization secondary to pneumonia associated with COVID-19. The patient has been started on dexamethasone 6 mg p.o. daily. The patient also has been started on remdesivir 100 mg IV daily as he was given 200 mg IV in the emergency department. The patient will be kept on carb constant diet and Accu-Cheks before meals and at bedtime. He is on insulin sliding scale low-dose. The patient has a history of what appears to be Parkinson's dementia and he is also on carbidopa/levodopa and this has been continued as a part of his home medications. The patient's DVT prophylaxis will be the use of Lovenox 40 mg subcutaneous daily. Oxygen will be titrated to keep his saturations around 92%. Repeat laboratory studies have been ordered. PT OT also has been ordered for the patient. Because of the patient's comorbidities and his COVID-19 pneumonia his overall prognosis is poor. 06/11/2021 71-year-old male with a history of Parkinson's disease admitted for treatment of his COVID-19 pneumonia. Patient was noted to be very confused on admission and this has improved greatly. He is alert to person place and time. He continues on dexamethasone and remdesivir. Labs today show a WBC of 7.26. Hemoglobin 12.7. Platelet 178,000. Patient has been on Rocephin and there is no clear indication for this. We will therefore discontinue it. Procalcitonin is pending. Blood cultures are negative. D-dimer is elevated at 2.61 which is an improvement over yesterday. Patient CTA was negative however we will also check lower extremities for DVT. No obvious signs of DVT at this point. Sodium 138. Potassium 4.5. Chloride 103. Carbon dioxide 26. Anion gap 13.5. BUN is 31. Creatinine 1.0. GFR is improved to greater than 60. Glucose has been ranging from 345-237. We will discontinue patient's Metformin but we will continue alogliptin. We will increase patient's long-acting insulin to 28 units at bedtime as he has been receiving significant amounts of sliding scale insulin. Magnesium is 2.2. Bilirubin 0.4. AST is 32, ALT 9, alkaline phosphatase 40. CRP is 12.0. Protein is 5.9. Albumin is 2.3. There is some confusion with when the patient actually developed symptoms whether or not his symptoms have been improving or worsening. Because of this we will keep the patient on qu arantine for a total of 10 days unless he requires high flow. This would mean he may come off of isolation at 06/15/2021 at 23:59. Discussed plan of care with patient. He reports he would like us to discuss this with his daughters. There is some [id number] on whether or not to continue remdesivir and ultimately decision is made to continue this as patient's liver enzymes and renal function look good. Family requests zinc and vitamin C be started and this seems reasonable. They would like vitamin D be started and we will check a level of this prior to prescribing. All questions answered. Unknown length of stay due to severity of COVID-19 illness. 06/12/2021 This is a 71-year-old male with a history of Parkinson's disease who is admitted to a floor for altered mental status and COVID-19 pneumonia. His mental status remains greatly improved with baseline confusion. He is on 6 to 7 L via nasal cannula with saturations in the upper 80s to low 90s. His procalcitonin from yesterday returned quite elevated at 2.04. Because of this we will resume Rocephin 2 g and start 3 days worth of azithromycin. We will check a UA on the patient as well. Labs today show a WBC of 5.09. Hemoglobin 12.5. Platelet of 202,000. Neutrophils are elevated 85.1%. Sodium 139. Potassium 4.4. Chloride 102. Carbon dioxide 31. Anion gap 10.4. BUN is 31. Creatinine 1.1. GFR is greater than 60. Glucose has remained elevated at 2 48-2 82 we will continue to monitor this and adjust insulin as needed. Magnesium is 2.2. Bilirubin 0.5. AST is 27, ALT 18, alkaline phosphatase 39. CRP is down to 5.6. Albumin is 2.2. We will continue remdesivir and dexamethasone. Patient's vitamin D level was within normal limits at 81.0 we will not start vitamin D supplementation. Patient is reporting significant joint pain and we will order as needed Aspercreme and scheduled Tylenol. Unknown length of stay due to severity of COVID-19 illness. 06/13/2021 71-year-old male with a history of Parkinson's disease was admitted to the floor for treatment of his COVID-19 pneumonia. Unfortunately patient's oxygen saturations have continued to drop he is now requiring high flow oxygen 55 L with an FiO2 of 85%. Overall he states he feels worse today than he did yesterday. Blood cultures remain negative. Labs show WBC of 4.54. Hemoglobin is 13.2. Platelets 200,000. Neutrophils are elevated 84.8%. D-dimer increased today to 6.74. Because of this and his worsening saturations patient was sent for CTA, which was negative although there was noted suboptimal opacification of the main or segmental branches. It is noted that smaller subsegmental pulmonary emboli could be missed. Diffuse parenchymal densities within both sides of the chest are noted however there is slight improvement also noted. Other chronic findings are noted. Sodium is 140. Potassium 4.6. Chloride 102. Carbon dioxide 32. BUN is 24. Creatinine 1.0. GFR is greater than 60. Blood glucose readings have improved from 1 62-2 25. Magnesium is 1.9. Bilirubin 0.5. AST is 28, ALT 7, alkaline phosphatase 41. CRP is 3.0. Protein is 6.2. Albumin is 2.2. UA was obtained yesterday and was negative however 1+ protein, 2+ glucose, and trace ketones are noted. At the patient's request of his daughter Clemencia was contacted at [phone] to discuss progress and possibly starting baricitinib. They will get back to us regarding this. We will consider moving patient to ICU should a bed become available given his rapidly deteriorating status. Unknown length of stay due to severity of Covid symptoms. We will continue remdesivir and increase dexamethasone to 6 mg twice daily starting today. Patient also continues on 3 days worth of azithromycin and 5 days worth of Rocephin. We will recheck a procalcitonin given his prior elevated resolved. Length of stay greater than 96 hours due to need for continued COVID-19 treatment.
[2021-06-13] MEDS: Insulin Regular, Human 100 Units/ML 3 ML Vial SUBCUT SCH ×4 (08:30→21:20)
[2021-06-13] MEDS ORDERED: Sodium Chloride 0.9% 10 ML Syringe FLUSH PRN (08:55)
[2021-06-13] MEDS ORDERED: Iopamidol 755 Mg/ML 100 ML Bottle IVPUSH ONE (08:55)
[2021-06-13] MEDS ORDERED: Sodium Chloride 0.9% 100 ML IV SCH (09:00)
[2021-06-13] MEDS: Azithromycin 500 MG in Sodium Chloride 0.9% 250 ML IV SCH (09:24)
[2021-06-13] MEDS: Enoxaparin 40 MG/0.4 ML Syringe SUBCUT SCH (09:24)
[2021-06-13] MEDS: Finasteride 5 MG Tab PO SCH (09:27)
[2021-06-13] MEDS: Dexamethasone 4 MG Tab PO SCH ×2 (09:27→21:18)
[2021-06-13] MEDS: Trospium 20 MG Tab PO SCH ×2 (09:29→21:19)
[2021-06-13] MEDS: Ascorbic Acid 500 MG Tab PO SCH (09:29)
[2021-06-13] MEDS: Zinc Sulfate 220 MG Cap PO SCH (09:29)
[2021-06-13] MEDS: Trolamine Salicylate/Aloe Vera 10% Crm 85 GM Tube TOP PRN (09:30)
--- NOTE | 2021-06-13 10:27 | CT ---
CT chest Technique: Multiple axial sections through the chest were obtained. Intravenous contrast was utilized. Study was performed as a pulmonary angiogram protocol. Comparison: Prior CT chest of 06/10/21. Findings: Pulmonary arteries are not optimally opacified. No findings of pulmonary embolism are seen within the main or segmental branches. Smaller subsegmental pulmonary emboli could be missed. Thoracic aorta shows mild atherosclerotic calcification with no aneurysm. Small mediastinal lymph nodes are seen and believed to be within normal limits. No axillary adenopathy is seen. No pericardial thickening is seen. Mild coronary artery calcification is seen. Minimal hiatal hernia is noted. Visualized upper abdominal structures show nothing acute. Prior study showed several nonobstructing calculi but this area was not included on this exam. Lung window settings were obtained which show diffuse parenchymal change. Overall density has slightly diminished from prior study but distribution is stable. Bone window settings were reviewed which show scattered degenerative disc space narrowing within the spine as well as endplate osteophytes. No acute osseous finding is seen. Impression: 1. Slightly suboptimal opacification of the pulmonary arteries. No findings of pulmonary embolism are seen within the main or segmental branches. Smaller subsegmental pulmonary emboli could be missed. 2. Diffuse parenchymal densities within both sides of the chest. Overall density shows slight improvement but distribution remains stable. 3. Other findings as noted above which appear to be chronic. Diagnostic code #3
[2021-06-13] MEDS: cefTRIAXone 2 GM in Sodium Chloride 0.9% 100 ML IV SCH (11:16)
[2021-06-13] MEDS: oxyCODONE 5 MG Tab PO PRN (21:18)
[2021-06-13] MEDS: REMDESIVIR 100 MG in Sodium Chloride 0.9% 100 ML IV SCH (21:19)
[2021-06-13] MEDS: Insulin Glargine,Hum.Rec.Anlog 100 UNIT/ML 3 ML Pen SUBCUT SCH (21:19)
[2021-06-13] MEDS: Tamsulosin 0.4 MG Cap.ER PO SCH (21:19)
[2021-06-14] MEDS: CARBIDOPA PO SCH ×4 (06:32→20:01)
[2021-06-14] MEDS: LEVODOPA PO SCH ×4 (06:32→20:01)
[2021-06-14] MEDS: Insulin Regular, Human 100 Units/ML 3 ML Vial SUBCUT SCH ×4 (06:32→22:38)
[2021-06-14] MEDS: Levothyroxine 50 MCG Tab PO SCH (06:32)
--- NOTE | 2021-06-14 07:32 | PCM.PN ---
- General Info Date of Service: 06/14/21 Admission Dx/Problem (Free Text): Admission Diagnosis/Problem Admission Diagnosis/Problem acute respiratory failure due to COVID-19 pneumonia. Functional Status: Reports: Pain Controlled, Tolerating Diet, Ambulating, Urinating, Incentive Spirometry, Other (Acapella ). Denies: New Symptoms - Review of Systems General: Reports: Weakness, Fatigue (Not sleeping well at night ). Denies: Fe diego, Malaise, Chills HEENT: Reports: No Symptoms. Denies: Headaches, Sore Throat Pulmonary: Reports: Shortness of Breath, Cough, Sputum. Denies: Pleuritic Chest Pain, Wheezing Cardiovascular: Reports: Dyspnea on Exertion. Denies: Chest Pain, Palpitations, Edema Gastrointestinal: Reports: No Symptoms. Denies: Abdominal Pain, Constipation, Diarrhea, Nausea, Vomiting Genitourinary: Reports: No Symptoms. Denies: Pain Musculoskeletal: Reports: No Symptoms Skin: Reports: No Symptoms. Denies: Cyanosis Neurological: Reports: Pre-Existing Deficit (Baseline Parkinson's disease), Difficulty Walking, Weakness, Gait Disturbance. Denies: Confusion, Dizziness, Headache, Numbness, Seizure, Syncope, Tingling, Tremors Psychiatric: Reports: No Symptoms - Patient Data Vitals - Most Recent: Last Vital Signs Temp 97.5 F 06/14/21 05:52 Pulse 66 06/14/21 05:52 Resp 16 06/14/21 05:52 BP 144/86 H 06/14/21 05:52 Pulse Ox 94 L 06/14/21 05:52 Weight - Most Recent: 230 lb 14.4 oz I&O - Last 24 Hours: Intake & Output 06/13/21 06/14/21 06/14/21 22:59 06:59 14:59 Intake Total 1698 700 Output Total 1200 400 Balance 498 300 Lab Results Last 24 Hours: Laboratory Results - last 24 hr 06/13/21 06/13/21 06/13/21 Range/Units 05:20 12:26 16:37 Manual Slide Review Normal smear POC Glucose 143 H 158 H (70-99) mg/dL 06/13/21 06/14/21 Range/Units 21:15 06:30 Manual Slide Review POC Glucose 183 H 97 (70-99) mg/dL Med Orders - Current: Current Medications Acetaminophen (Acetaminophen 325 Mg Tab) 650 mg PO Q8H [facility] Last Admin: 06/13/21 23:54 Dose: Not Given Documented by: Al Hydroxide/Mg Hydroxide (Aluminum Hydroxide/Magnesium Hydroxide/Simethicone Susp 30 Ml Cup) 30 ml PO Q4H PRN PRN Reason: Heartburn Albuterol (Albuterol 6.7 Gm Inhaler) 0 gm INH QID PRN PRN Reason: SOB/Wheezing Albuterol/Ipratropium (Albuterol/Ipratropium 3.0-0.5 Mg/3 Ml Neb Soln) 3 ml NEB Q4H PRN PRN Reason: Shortness Of Breath/wheezing Last Admin: 06/13/21 20:06 Dose: 3 ml Documented by: Alogliptin Benzoate (Alogliptin 12.5 Mg Tab) 12.5 mg PO BIDMEALS [facility] Last Admin: 06/14/21 06:32 Dose: 12.5 mg Documented by: Ascorbic Acid (Ascorbic Acid 500 Mg Tab) 500 mg PO DAILY [facility] Last Admin: 06/13/21 09:29 Dose: 500 mg Documented by: Baricitinib (Baricitinib 2 Mg Tab) 4 mg PO DAILY [facility] Last Admin: 06/13/21 17:18 Dose: 4 mg Documented by: Dexamethasone (Dexamethasone 4 Mg Tab) 6 mg PO BID [facility] Last Admin: 06/13/21 21:18 Dose: 6 mg Documented by: Docusate Sodium (Docusate Sodium 100 Mg Cap) 100 mg PO BID PRN PRN Reason: Constipation Enoxaparin Sodium (Enoxaparin 40 Mg/0.4 Ml Syringe) 40 mg SUBCUT DAILY [facility] Last Admin: 06/13/21 09:24 Dose: 40 mg Documented by: Finasteride (Finasteride 5 Mg Tab) 5 mg PO DAILY [facility] Last Admin: 06/13/21 09:27 Dose: 5 mg Documented by: Guaifenesin/Phenylephrine HCl (Guaifenesin/Dextromethorphan 100-10 Mg/5 Ml Soln 5 Ml Cup) 10 ml PO Q6H PRN PRN Reason: Cough Ceftriaxone Sodium 2 gm/ (Sodium Chloride) 100 mls @ 200 mls/hr IV Q24H [facility] Stop: 06/16/21 09:29 Last Admin: 06/13/21 11:16 Dose: 200 mls/hr Documented by: Azithromycin 500 mg/ Sodium (Chloride) 250 mls @ 250 mls/hr IV Q24H [facility] Stop: 06/14/21 08:59 Last Admin: 06/13/21 09:24 Dose: 250 mls/hr Documented by: Insulin Glargine (Insulin Glargine,Hum.Rec.Anlog 100 Unit/Ml 3 Ml Pen) 32 unit SUBCUT BEDTIME [facility] Last Admin: 06/13/21 21:19 Dose: 32 unit Documented by: Insulin Human Regular (Insulin Regular, Human 100 Units/Ml 3 Ml Vial) 0 unit SUBCUT QIDACANDBED [facility]; Protocol Last Admin: 06/14/21 06:32 Dose: Not Given Documented by: Levothyroxine Sodium (Levothyroxine 50 Mcg Tab) 50 mcg PO ACBREAKFAST [facility] Last Admin: 06/14/21 06:32 Dose: 50 mcg Documented by: Carbidopa/Levodopa 25-250 Tab Own Med 1 tab PO 0600,1100,1500,1900,2300 [facility] Last Admin: 06/14/21 06:32 Dose: 1 tab Documented by: Ondansetron HCl (Ondansetron 4 Mg Tab.Dis) 4 mg PO Q4H PRN PRN Reason: nausea, able to take PO Oxycodone HCl (Oxycodone 5 Mg Tab) 5 mg PO Q4H PRN PRN Reason: Pain (moderate 4-6) Last Admin: 06/13/21 21:18 Dose: 5 mg Documented by: Sodium Chloride (Sodium Chloride 0.9% 10 Ml Syringe) 10 ml FLUSH ASDIRECTED PRN PRN Reason: Keep Vein Open Last Admin: 06/10/21 00:24 Dose: 10 ml Documented by: Tamsulosin HCl (Tamsulosin 0.4 Mg Cap.Er) 0.4 mg PO BEDTIME [facility] Last Admin: 06/13/21 21:19 Dose: 0.4 mg Documented by: Temazepam (Temazepam 15 Mg Cap) 15 mg PO BEDTIME PRN PRN Reason: Sleep Last Admin: 06/13/21 21:18 Dose: 15 mg Documented by: Trolamine Salicylate (Trolamine Salicylate/Aloe Vera 10% Crm 85 Gm Tube) 1 gm TOP Q2H PRN PRN Reason: Pain (moderate 4-6) Last Admin: 06/13/21 09:30 Dose: 1 applic Documented by: Trospium (Trospium 20 Mg Tab) 20 mg PO BID [facility] Last Admin: 06/13/21 21:19 Dose: 20 mg Documented by: Zinc Sulfate (Zinc Sulfate 220 Mg Cap) 220 mg PO DAILY [facility] Last Admin: 06/13/21 09:29 Dose: 220 mg Documented by: Discontinued Medications Acetaminophen (Acetaminophen 325 Mg Tab) 975 mg PO NOW ONE Stop: 06/09/21 21:16 Last Admin: 06/09/21 21:41 Dose: 350 mg Documented by: Acetaminophen (Acetaminophen 650 Mg Supp) 650 mg RECTAL NOW ONE Stop: 06/09/21 21:52 Last Admin: 06/09/21 22:30 Dose: 650 mg Documented by: Acetaminophen (Acetaminophen 325 Mg Tab) 650 mg PO Q4H PRN PRN Reason: Pain (Mild 1-3)/fever Last Admin: 06/12/21 08:10 Dose: 650 mg Documented by: Acetaminophen (Acetaminophen 325 Mg Tab) 975 mg PO Q8HR [facility] Acetaminophen (Acetaminophen 325 Mg Tab) 650 mg PO Q8H [facility] Last Admin: 06/12/21 11:51 Dose: Not Given Documented by: Carbidopa/Levodopa (Carbidopa/Levodopa 25-100 Mg Tab) 1 tab PO QID [facility] Last Admin: 06/10/21 16:54 Dose: 1 tab Documented by: Dexamethasone (Dexamethasone 4 Mg/Ml 5 Ml Mdv) 6 mg IV ONETIME ONE Stop: 06/10/21 00:53 Last Admin: 06/10/21 01:31 Dose: 6 mg Documented by: Dexamethasone (Dexamethasone 4 Mg Tab) 6 mg PO DAILY [facility] Stop: 06/18/21 09:01 Last Admin: 06/12/21 08:55 Dose: 6 mg Documented by: Glimepiride (Glimepiride 2 Mg Tab) 4 mg PO DAILY [facility] Last Admin: 06/10/21 09:51 Dose: 4 mg Documented by: Glimepiride (Glimepiride 2 Mg Tab) 2 mg PO WITHBREAKFAST [facility] Last Admin: 06/11/21 06:05 Dose: 2 mg Documented by: Sodium Chloride (Normal Saline) 1,000 mls @ 250 mls/hr IV ONETIME ONE Stop: 06/10/21 01:14 Last Infusion: 06/09/21 21:41 Dose: 250 mls/hr Documented by: Sodium Chloride (Normal Saline) Confirm Administered Dose 1,000 mls @ as direct ed .ROUTE .STK-MED ONE Stop: 06/09/21 21:19 Last Admin: 06/10/21 01:11 Dose: Not Given Documented by: Remdesivir 200 mg/ Sodium (Chloride) 250 mls @ 250 mls/hr IV ONETIME ONE Stop: 06/10/21 00:53 Last Admin: 06/10/21 01:47 Dose: 250 mls/hr Documented by: Remdesivir 100 mg/ Sodium (Chloride) 100 mls @ 100 mls/hr IV Q24H [facility] Stop: 06/13/21 21:59 Last Admin: 06/13/21 21:19 Dose: 100 mls/hr Documented by: Ceftriaxone Sodium 1 gm/ (Sodium Chloride) 100 mls @ 200 mls/hr IV Q24H [facility] Last Admin: 06/11/21 09:01 Dose: 200 mls/hr Documented by: Sodium Chloride (Normal Saline) 100 mls @ 75 mls/hr IV ASDIRECTED [facility] Stop: 06/13/21 13:00 Last Admin: 06/13/21 09:52 Dose: 75 mls/hr Documented by: Insulin Glargine (Insulin Glarg,Human.Rec.Analog 100 Unit/Ml) 24 unit SUBCUT BEDTIME [facility] Insulin Glargine (Insulin Glargine,Hum.Rec.Anlog 100 Unit/Ml 3 Ml Pen) 24 unit SUBCUT BEDTIME [facility] Last Admin: 06/10/21 21:05 Dose: 24 units Documented by: Insulin Glargine (Insulin Glargine,Hum.Rec.Anlog 100 Unit/Ml 3 Ml Pen) 28 unit SUBCUT BEDTIME [facility] Last Admin: 06/11/21 21:21 Dose: 28 units Documented by: Insulin Human Isoph/Insulin Regular (Insulin Nph/Insulin Regular,Human 70-30 100 Units/Ml 10 Ml Vial) 0 units SUBCUT BIDAC [facility]; Protocol Last Admin: 06/10/21 02:36 Dose: Not Given Documented by: Insulin Human Lispro (Insulin Lispro 100 Unit/Ml 3 Ml Kwikpen) 0 unit SUBCUT QIDACANDBED [facility]; Protocol Last Admin: 06/10/21 12:15 Dose: Not Given Documented by: Insulin Human Regular (Insulin Regular, Human 100 Units/Ml 3 Ml Vial) [address] [facility]; Protocol Last Admin: 06/12/21 09:12 Dose: 6 unit Documented by: Iopamidol (Iopamidol 755 Mg/Ml 100 Ml Bottle) 100 ml IVPUSH ONETIME ONE Stop: 06/09/21 23:54 Last Admin: 06/10/21 00:24 Dose: 100 ml Documented by: Iopamidol (Iopamidol 755 Mg/Ml 100 Ml Bottle) 100 ml IVPUSH ONETIME ONE Stop: 06/13/21 08:56 Last Admin: 06/13/21 09:52 Dose: 100 ml Documented by: Magnesium Hydroxide (Magnesium Hydroxide 400 Mg/5 Ml Susp 30 Ml Cup) 30 ml PO ONETIME ONE Stop: 06/13/21 06:01 Last Admin: 06/13/21 06:18 Dose: 30 ml Documented by: [facility] ([facility] 500 Mg [facility] Last Admin: 06/11/21 06:06 Dose: 1,000 mg Documented by: Morphine Sulfate (Morphine 2 Mg/Ml Syringe) 2 mg IVPUSH Q2H PRN PRN Reason: Pain (severe 7-10) Stop: 06/11/21 07:46 Non-Formulary Medication (Tresiba) 24 units SQ ONETIME ONE Stop: 06/10/21 03:46 Last Admin: 06/10/21 03:45 Dose: 24 units Documented by: Carbidopa/Levodopa 25-250 Tab Own Med 1 tab PO 0600,1100,1500,1900,2300 [facility] Last Admin: 06/11/21 05:29 Dose: 1 tab Documented by: Non-Formulary Medication (Sitagliptin Phos/Metformin Hcl [Janumet 50-1,000 Mg]) 1 tab PO BID [facility] Non-Formulary Medication (Non-Formulary Medication 1 Each) 1 each PO BID [facility] Sodium Chloride (Sodium Chloride 0.9% 10 Ml Syringe) 10 ml FLUSH ONETIME PRN PRN Reason: IV FLUSH Stop: 06/13/21 13:00 Trospium (Trospium 20 Mg Tab) 10 mg PO BID [facility] Last Admin: 06/10/21 21:03 Dose: 10 mg Documented by: - Exam Quality Assessment: Supplemental Oxygen (50 L high flow with FiO2 of 65%.), DVT Prophylaxis. No: Urine Catheter General: Alert, Oriented, Cooperative, No Acute Distress HEENT: Pupils Equal, Pupils Reactive, Mucous Membr. Moist/[place] Neck: Supple, Trachea Midline Lungs: Normal Respiratory Effort, Decreased Breath Sounds, Crackles. No: Wheezing Cardiovascular: Regular Rate, Regular Rhythm GI/Abdominal Exam: Normal Bowel Sounds, Soft, Non-Tender, No Distention (Male) Exam: Deferred Back Exam: Normal Inspection, Decreased Range of Motion Extremities: Normal Inspection, Non-Tender, No Pedal Edema, Normal Capillary Refill, Limited Range of Motion Skin: Warm, Dry, Intact Neurological: No New Focal Deficit Psy/Mental Status: Alert, Normal Affect, Normal Mood - Patient Data Lab Results Last 24 hrs: Laboratory Results - last 24 hr 06/13/21 06/13/21 06/13/21 Range/Units 05:20 12:26 16:37 Manual Slide Review Normal smear POC Glucose 143 H 158 H (70-99) mg/dL 06/13/21 06/14/21 Range/Units 21:15 06:30 Manual Slide Review POC Glucose 183 H 97 (70-99) mg/dL Result Diagrams: 06/14/21 06:19 06/14/21 06:19 Sepsis Event Note - Evaluation Sepsis Screening Result: No Definite Risk - Focused Exam Vital Signs: Vital Signs Temp Pulse Resp BP Pulse Ox Pulse Ox 06/14/21 05:52 97.5 F 66 16 144/86 H 94 L 06/13/21 23:50 96.6 F L 72 18 155/88 H 92 L 06/13/21 20:07 94 L 06/13/21 19:42 97.0 F 67 18 130/83 97 - Problem List & Annotations (1) Acute respiratory failure due to COVID-19 SNOMED Code(s): 910949196 Code(s): U07.1 - COVID-19; J96.00 - ACUTE RESPIRATORY FAILURE, UNSP W HYPOXIA OR HYPERCAPNIA Status: Acute Priority: High Current Visit: Yes (2) Pneumonia due to COVID-19 virus SNOMED Code(s): 913987539111620319 Code(s): U07.1 - COVID-19; J12.82 - PNEUMONIA DUE TO CORONAVIRUS DISEASE 2019 Status: Acute Priority: High Current Visit: Yes (3) Diabetes mellitus type 2 in nonobese SNOMED Code(s): 289849598 Code(s): E11.9 - TYPE 2 DIABETES MELLITUS WITHOUT COMPLICATIONS Status: Chronic Priority: High Current Visit: Yes (4) Parkinson's disease dementia SNOMED Code(s): 333473419087042 Code(s): G20 - PARKINSON'S DISEASE; F02.80 - DEMENTIA IN OTH DISEASES CLASSD ELSWHR W/O BEHAVRL DISTURB Status: Chronic Priority: High Current Visit: Yes Qualifiers: Dementia behavioral disturbance: without behavioral disturbance Qualified Code(s): G20 - Parkinson's disease; F02.80 - Dementia in other diseases classified elsewhere without behavioral disturbance (5) Elevated C-reactive protein (CRP) SNOMED Code(s): 671745706496408 Code(s): R79.82 - ELEVATED C-REACTIVE PROTEIN (CRP) Status: Acute Priority: High Current Visit: Yes (6) Elevated d-dimer SNOMED Code(s): 148041773 Code(s): R79.89 - OTHER SPECIFIED ABNORMAL FINDINGS OF BLOOD CHEMISTRY Status: Acute Priority: High Current Visit: Yes (7) Elevated procalcitonin SNOMED Code(s): 745750120, 839515284 Code(s): R79.89 - OTHER SPECIFIED ABNORMAL FINDINGS OF BLOOD CHEMISTRY Status: Acute Priority: High Current Visit: Yes - Problem List Review Problem List Initiated/Reviewed/Updated: Yes - My Orders Last 24 Hours: My Active Orders 06/13/21 09:00 dexAMETHasone 6 mg PO BID 06/14/21 06:19 CBC WITH AUTO DIFF [HEME] AM CMP [COMPREHENSIVE METABOLIC PN,CMP] [CHEM] AM CRP [C-REACTIVE PROTEIN] [CHEM] AM MAGNESIUM [CHEM] AM 06/15/21 05:11 CBC WITH AUTO DIFF [HEME] AM CMP [COMPREHENSIVE METABOLIC PN,CMP] [CHEM] AM CRP [C-REACTIVE PROTEIN] [CHEM] AM DD [D-DIMER QUANTITATIVE] [COAG] Q48H MAGNESIUM [CHEM] AM - Plan Plan:: The patient is a 71-year-old gentleman who has been admitted to acute hospitalization secondary to pneumonia associated with COVID-19. The patient has been started on dexamethasone 6 mg p.o. daily. The patient also has been started on remdesivir 100 mg IV daily as he was given 200 mg IV in the emergency department. The patient will be kept on carb constant diet and Accu-Cheks before meals and at bedtime. He is on insulin sliding scale low-dose. The patient has a history of what appears to be Parkinson's dementia and he is also on carbidopa/levodopa and this has been continued as a part of his home medications. The patient's DVT prophylaxis will be the use of Lovenox 40 mg subcutaneous daily. Oxygen will be titrated to keep his saturations around 92%. Repeat laboratory studies have been ordered. PT OT also has been ordered for the patient. Because of the patient's comorbidities and his COVID-19 pneumonia his overall prognosis is poor. 06/11/2021 71-year-old male with a history of Parkinson's disease admitted for treatment of his COVID-19 pneumonia. Patient was noted to be very confused on admission and this has improved greatly. He is alert to person place and time. He continues on dexamethasone and remdesivir. Labs today show a WBC of 7.26. Hemoglobin 12.7. Platelet 178,000. Patient has been on Rocephin and there is no clear indication for this. We will therefore discontinue it. Procalcitonin is pending. Blood cultures are negative. D-dimer is elevated at 2.61 which is an improvement over yesterday. Patient CTA was negative however we will also check lower extremities for DVT. No obvious signs of DVT at this point. Sodium 138. Potassium 4.5. Chloride 103. Carbon dioxide 26. Anion gap 13.5. BUN is 31. Creatinine 1.0. GFR is improved to greater than 60. Glucose has been ranging from 345-237. We will discontinue patient's Metformin but we will continue alogliptin. We will increase patient's long-acting insulin to 28 units at bedtime as he has been receiving significant amounts of sliding scale insulin. Magnesium is 2.2. Bilirubin 0.4. AST is 32, ALT 9, alkaline phosphatase 40. CRP is 12.0. Protein is 5.9. Albumin is 2.3. There is some confusion with when the patient actually developed symptoms whether or not his symptoms have been improving or worsening. Because of this we will keep the patient on quarantine for a total of 10 days unless he requires high flow. This would mean he may come off of isolation at 06/15/2021 at 23:59. Discussed plan of care with patient. He reports he would like us to discuss this with his daughters. There is some [id number] on whether or not to continue remdesivir and ultimately decision is made to continue this as patient's liver enzymes and renal function look good. Family requests zinc and vitamin C be started and thi s seems reasonable. They would like vitamin D be started and we will check a level of this prior to prescribing. All questions answered. Unknown length of stay due to severity of COVID-19 illness. 06/12/2021 This is a 71-year-old male with a history of Parkinson's disease who is admitted to a floor for altered mental status and COVID-19 pneumonia. His mental status remains greatly improved with baseline confusion. He is on 6 to 7 L via nasal cannula with saturations in the upper 80s to low 90s. His procalcitonin from yesterday returned quite elevated at 2.04. Because of this we will resume Rocephin 2 g and start 3 days worth of azithromycin. We will check a UA on the patient as well. Labs today show a WBC of 5.09. Hemoglobin 12.5. Platelet of 202,000. Neutrophils are elevated 85.1%. Sodium 139. Potassium 4.4. Chloride 102. Carbon dioxide 31. Anion gap 10.4. BUN is 31. Creatinine 1.1. GFR is greater than 60. Glucose has remained elevated at 2 48-2 82 we will continue to monitor this and adjust insulin as needed. Magnesium is 2.2. Bilirubin 0.5. AST is 27, ALT 18, alkaline phosphatase 39. CRP is down to 5.6. Albumin is 2.2. We will continue remdesivir and dexamethasone. Patient's vitamin D level was within normal limits at 81.0 we will not start vitamin D supplementation. Patient is reporting significant joint pain and we will order as needed Aspercreme and scheduled Tylenol. Unknown length of stay due to severity of COVID-19 illness. 06/13/2021 71-year-old male with a history of Parkinson's disease was admitted to the floor for treatment of his COVID-19 pneumonia. Unfortunately patient's oxygen saturations have continued to drop he is now requiring high flow oxygen 55 L with an FiO2 of 85%. Overall he states he feels worse today than he did yesterday. Blood cultures remain negative. Labs show WBC of 4.54. Hemoglobin is 13.2. Platelets 200,000. Neutrophils are elevated 84.8%. D-dimer increased today to 6.74. Because of this and his worsening saturations patient was sent for CTA, which was negative although there was noted suboptimal opacification of the main or segmental branches. It is noted that smaller subsegmental pulmonary emboli could be missed. Diffuse parenchymal densities within both sides of the chest are noted however there is slight improvement also noted. Other chronic findings are noted. Sodium is 140. Potassium 4.6. Chloride 102. Carbon dioxide 32. BUN is 24. Creatinine 1.0. GFR is greater than 60. Blood glucose readings have improved from 1 62-2 25. Magnesium is 1.9. Bilirubin 0.5. AST is 28, ALT 7, alkaline phosphatase 41. CRP is 3.0. Protein is 6.2. Albumin is 2.2. UA was obtained yesterday and was negative however 1+ protein, 2+ glucose, and trace ketones are noted. At the patient's request of his daughter Clemencia was contacted at [phone] to discuss progress and possibly starting baricitinib. They will get back to us regarding this. We will consider moving patient to ICU should a bed become available given his rapidly deteriorating status. Unknown length of stay due to severity of Covid symptoms. We will continue remdesivir and increase dexamethasone to 6 mg twice daily starting today. Patient also continues on 3 days worth of azithromycin and 5 days worth of Rocephin. We will recheck a procalcitonin given his prior elevated resolved. Length of stay greater than 96 hours due to need for continued COVID-19 ky tment. 06/14/2021 31-year-old male with history of Parkinson's disease admitted to the floor for COVID-19. Saturations have improved today and he remains on 50 L high flow with an FiO2 of 65%. Blood cultures remain negative. Vital signs otherwise been stable. He completed azithromycin and continues on Rocephin. He completed his remdesivir treatment. As the patient was having rapidly worsening oxygen saturations baricitinib was recommended yesterday and after discussion with the patient and amongst family members they ultimately agreed in the evening hours. WBC is 4.92. Hemoglobin 14.1. Platelet 194,000. Neutrophils are 88.4%. Blood smear is normal. Sodium is 139. Potassium 4.5. Chloride 100. Carbon oxide 32. Anion gap 11.5. BUN is 22. Creatinine 0.9. GFR greater than 60. Glucose is 97-1 58. Magnesium 2.1. Bilirubin 0.6. AST is 28, ALT is 15, alkaline phosphatase 46. CRP is 4.6. Albumin is 2.4. We will continue current treatment plan and attempt to wean off oxygen as the patient tolerates. Unknown length of stay. Because of his significant worsening in oxygen saturations over the last 12-24 hours I have recommended baricitinib. I spoke with Yehuda and his daughter Elena via phone to provide information about baricitinib. I offered the "fax sheet for patients and parents/caregivers, for baricitinib" to read and review. I stated that therapy has been approved by an emergency use authorization process and has not fully been FDA reviewed or approved. I shared potential risks from the therapy including increased risk for serious infections, anaphylaxis, and reaction to medication. I discussed there are other potential treatment options that are currently not FDA approved to treat COVID-19. Offered opportunity to ask questions and all questions were answered. Yehuda and Elena voiced understanding and after some discussion agreed to proceed with treatment.
[2021-06-14] MEDS: Albuterol/Ipratropium 3.0-0.5 MG/3 ML Neb Soln NEB PRN ×2 (08:14→20:25)
[2021-06-14] MEDS: Acetaminophen 325 MG Tab PO SCH ×2 (08:47→16:26)
[2021-06-14] MEDS: Azithromycin 500 MG in Sodium Chloride 0.9% 250 ML IV SCH (08:49)
[2021-06-14] MEDS: Finasteride 5 MG Tab PO SCH (10:23)
[2021-06-14] MEDS: Trospium 20 MG Tab PO SCH ×2 (10:23→21:35)
[2021-06-14] MEDS: Dexamethasone 4 MG Tab PO SCH ×2 (10:24→21:36)
[2021-06-14] MEDS: Ascorbic Acid 500 MG Tab PO SCH (10:24)
[2021-06-14] MEDS: Enoxaparin 40 MG/0.4 ML Syringe SUBCUT SCH (10:24)
[2021-06-14] MEDS: Zinc Sulfate 220 MG Cap PO SCH (10:24)
[2021-06-14] MEDS: cefTRIAXone 2 GM in Sodium Chloride 0.9% 100 ML IV SCH (10:25)
[2021-06-14] MEDS: Tamsulosin 0.4 MG Cap.ER PO SCH (21:36)
[2021-06-14] MEDS: Insulin Glargine,Hum.Rec.Anlog 100 UNIT/ML 3 ML Pen SUBCUT SCH (21:37)
[2021-06-14] MEDS: oxyCODONE 5 MG Tab PO PRN (22:39)
[2021-06-15] MEDS: Acetaminophen 325 MG Tab PO SCH ×3 (00:04→15:39)
[2021-06-15] MEDS: LEVODOPA PO SCH ×6 (00:06→21:59)
[2021-06-15] MEDS: CARBIDOPA PO SCH ×6 (00:06→21:59)
[2021-06-15] MEDS: oxyCODONE 5 MG Tab PO PRN ×2 (02:39→22:01)
[2021-06-15] MEDS: Levothyroxine 50 MCG Tab PO SCH (06:43)
--- NOTE | 2021-06-15 07:12 | PCM.PN ---
- General Info Date of Service: 06/15/21 Admission Dx/Problem (Free Text): Admission Diagnosis/Problem Admission Diagnosis/Problem acute respiratory failure due to COVID-19 pneumonia. Functional Status: Reports: Pain Controlled, Tolerating Diet (improving ), Ambulating, Urinating, Incentive Spirometry, Other (Acapella ). Denies: New Symptoms - Review of Systems General: Reports: Weakness, Fatigue, Malaise. Denies: Fever, Chills HEENT: Reports: No Symptoms. Denies: Headaches, Sore Throat Pulmonary: Reports: Shortness of Breath, Cough. Denies: Pleuritic Chest Pain, Sputum Cardiovascular: Reports: No Symptoms. Denies: Chest Pain, Palpitations, Dyspnea on Exertion, Edema Gastrointestinal: Reports: No Symptoms. Denies: Abdominal Pain, Constipation, Diarrhea, Nausea, Vomiting Genitourinary: Reports: No Symptoms. Denies: Pain Musculoskeletal: Reports: No Symptoms Skin: Reports: No Symptoms. Denies: Cyanosis Neurological: Reports: Pre-Existing Deficit (Parkinson's disease), Difficulty Walking, Weakness, Gait Disturbance. Denies: Confusion Psychiatric: Reports: No Symptoms - Patient Data Vitals - Most Recent: Last Vital Signs Temp 97.9 F 06/15/21 00:05 Pulse 77 06/15/21 00:05 Resp 24 H 06/15/21 00:05 BP 142/77 H 06/15/21 00:05 Pulse Ox 94 L 06/15/21 05:27 Weight - Most Recent: 216 lb 14.4 oz I&O - Last 24 Hours: Intake & Output 06/14/21 06/15/21 06/15/21 22:59 06:59 14:59 Intake Total 900 600 Output Total 375 900 Balance 525 -300 Lab Results Last 24 Hours: Laboratory Results - last 24 hr 06/13/21 06/14/21 06/14/21 Range/Units 05:20 06:19 06:19 WBC 4.92 (4.23-9.07) K/mm3 RBC 4.59 L (4.63-6.08) M/mm3 Hgb 14.1 (13.7-17.5) gm/dl Hct 44.0 (40.1-51.0) % MCV 95.9 H (79.0-92.2) fl MCH 30.7 (25.7-32.2) pg MCHC 32.0 L (32.2-35.5) g/dl RDW Std Deviation 48.2 H (35.1-43.9) fL Plt Count 194 (163-337) K/mm3 MPV 10.6 (9.4-12.3) fl Neut % (Auto) 88.4 H (34.0-67.9) % Lymph % (Auto) 6.7 L (21.8-53.1) % [place] % (Auto) 4.3 L (5.3-12.2) % Eos % (Auto) 0 L (0.8-7.0) Baso % (Auto) 0.2 (0.1-1.2) % Neut # (Auto) 4.35 (1.78-5.38) K/mm3 Lymph # (Auto) 0.33 L (1.32-3.57) K/mm3 [place] # (Auto) 0.21 L (0.30-0.82) K/mm3 Eos # (Auto) 0.00 L (0.04-0.54) K/mm3 Baso # (Auto) 0.01 (0.01-0.08) K/mm3 Manual Slide Review Normal smear D-Dimer, Quantitative (0.19-0.50) mg/L Sodium 139 (136-145) mEq/L Potassium 4.5 (3.5-5.1) mEq/L Chloride 100 (98-107) mEq/L Carbon Dioxide 32 (21-32) mEq/L Anion Gap 11.5 (5-15) BUN 22 H (7-18) mg/dL Creatinine 0.9 (0.7-1.3) mg/dL Est Cr Clr Drug Dosing 86.26 mL/min Estimated GFR (MDRD) > 60 (>60) mL/min BUN/Creatinine Ratio 24.4 H (14-18) Glucose 92 (70-99) mg/dL POC Glucose (70-99) mg/dL Calcium 8.4 L (8.5-10.1) mg/dL Magnesium 2.1 (1.8-2.4) mg/dL Total Bilirubin 0.6 (0.2-1.0) mg/dL AST 28 (15-37) U/L ALT 15 L (16-63) U/L Alkaline Phosphatase 46 (46-116) U/L C-Reactive Protein 4.6 H* (<1.0) mg/dL Total Protein 6.8 (6.4-8.2) g/dl Albumin 2.4 L (3.4-5.0) g/dl Globulin 4.4 gm/dL Albumin/Globulin Ratio 0.6 L (1-2) Procalcitonin 0.29 H ng/mL 06/14/21 06/14/21 06/14/21 Range/Units 12:04 17:34 21:33 WBC (4.23-9.07) K/mm3 RBC (4.63-6.08) M/mm3 Hgb (13.7-17.5) gm/dl Hct (40.1-51.0) % MCV (79.0-92.2) fl MCH (25.7-32.2) pg MCHC (32.2-35.5) g/dl RDW Std Deviation (35.1-43.9) fL Plt Count (163-337) K/mm3 MPV (9.4-12.3) fl Neut % (Auto) (34.0-67.9) % Lymph % (Auto) (21.8-53.1) % [place] % (Auto) (5.3-12.2) % Eos % (Auto) (0.8-7.0) Baso % (Auto) (0.1-1.2) % Neut # (Auto) (1.78-5.38) K/mm3 Lymph # (Auto) (1.32-3.57) K/mm3 [place] # (Auto) (0.30-0.82) K/mm3 Eos # (Auto) (0.04-0.54) K/mm3 Baso # (Auto) (0.01-0.08) K/mm3 Manual Slide Review D-Dimer, Quantitative (0.19-0.50) mg/L Sodium (136-145) mEq/L Potassium (3.5-5.1) mEq/L Chloride (98-107) mEq/L Carbon Dioxide (21-32) mEq/L Anion Gap (5-15) BUN (7-18) mg/dL Creatinine (0.7-1.3) mg/dL Est Cr Clr Drug Dosing mL/min Estimated GFR (MDRD) (>60) mL/min BUN/Creatinine Ratio (14-18) Glucose (70-99) mg/dL POC Glucose 199 H 187 H 244 H (70-99) mg/dL Calcium (8.5-10.1) mg/dL Magnesium (1.8-2.4) mg/dL Total Bilirubin (0.2-1.0) mg/dL AST (15-37) U/L ALT (16-63) U/L Alkaline Phosphatase (46-116) U/L C-Reactive Protein (<1.0) mg/dL Total Protein (6.4-8.2) g/dl Albumin (3.4-5.0) g/dl Globulin gm/dL Albumin/Globulin Ratio (1-2) Procalcitonin ng/mL 06/15/21 06/15/21 06/15/21 Range/Units 05:59 05:59 05:59 WBC 9.30 H (4.23-9.07) K/mm3 RBC 4.75 (4.63-6.08) M/mm3 Hgb 14.4 (13.7-17.5) gm/dl Hct 44.9 (40.1-51.0) % MCV 94.5 H (79.0-92.2) fl MCH 30.3 (25.7-32.2) pg MCHC 32.1 L (32.2-35.5) g/dl RDW Std Deviation 47.9 H (35.1-43.9) fL Plt Count 203 (163-337) K/mm3 MPV 10.2 (9.4-12.3) fl Neut % (Auto) 93.9 H (34.0-67.9) % Lymph % (Auto) 3.1 L (21.8-53.1) % [place] % (Auto) 2.5 L (5.3-12.2) % Eos % (Auto) 0 L (0.8-7.0) Baso % (Auto) 0.1 (0.1-1.2) % Neut # (Auto) 8.73 H (1.78-5.38) K/mm3 Lymph # (Auto) 0.29 L (1.32-3.57) K/mm3 [place] # (Auto) 0.23 L (0.30-0.82) K/mm3 Eos # (Auto) 0.00 L (0.04-0.54) K/mm3 Baso # (Auto) 0.01 (0.01-0.08) K/mm3 Manual Slide Review Normal smear D-Dimer, Quantitative 20.38 H (0.19-0.50) mg/L Sodium 139 (136-145) mEq/L Potassium 4.4 (3.5-5.1) mEq/L Chloride 102 (98-107) mEq/L Carbon Dioxide 28 (21-32) mEq/L Anion Gap 13.4 (5-15) BUN 29 H (7-18) mg/dL Creatinine 1.0 (0.7-1.3) mg/dL Est Cr Clr Drug Dosing 77.63 mL/min Estimated GFR (MDRD) > 60 (>60) mL/min BUN/Creatinine Ratio 29.0 H (14-18) Glucose 164 H (70-99) mg/dL POC Glucose (70-99) mg/dL Calcium 8.7 (8.5-10.1) mg/dL Magnesium 2.1 (1.8-2.4) mg/dL Total Bilirubin 0.6 (0.2-1.0) mg/dL AST 27 (15-37) U/L ALT 14 L (16-63) U/L Alkaline Phosphatase 46 (46-116) U/L C-Reactive Protein 2.7 H* (<1.0) mg/dL Total Protein 6.6 (6.4-8.2) g/dl Albumin 2.5 L (3.4-5.0) g/dl Globulin 4.1 gm/dL Albumin/Globulin Ratio 0.6 L (1-2) Procalcitonin ng/mL 06/15/21 Range/Units 05:59 WBC (4.23-9.07) K/mm3 RBC (4.63-6.08) M/mm3 Hgb (13.7-17.5) gm/dl Hct (40.1-51.0) % MCV (79.0-92.2) fl MCH (25.7-32.2) pg MCHC (32.2-35.5) g/dl RDW Std Deviation (35.1-43.9) fL Plt Count (163-337) K/mm3 MPV (9.4-12.3) fl Neut % (Auto) (34.0-67.9) % Lymph % (Auto) (21.8-53.1) % [place] % (Auto) (5.3-12.2) % Eos % (Auto) (0.8-7.0) Baso % (Auto) (0.1-1.2) % Neut # (Auto) (1.78-5.38) K/mm3 Lymph # (Auto) (1.32-3.57) K/mm3 [place] # (Auto) (0.30-0.82) K/mm3 Eos # (Auto) (0.04-0.54) K/mm3 Baso # (Auto) (0.01-0.08) K/mm3 Manual Slide Review D-Dimer, Quantitative (0.19-0.50) mg/L Sodium (136-145) mEq/L Potassium (3.5-5.1) mEq/L Chloride (98-107) mEq/L Carbon Dioxide (21-32) mEq/L Anion Gap (5-15) BUN (7-18) mg/dL Creatinine (0.7-1.3) mg/dL Est Cr Clr Drug Dosing mL/min Estimated GFR (MDRD) (>60) mL/min BUN/Creatinine Ratio (14-18) Glucose (70-99) mg/dL POC Glucose 147 H (70-99) mg/dL Calcium (8.5-10.1) mg/dL Magnesium (1.8-2.4) mg/dL Total Bilirubin (0.2-1.0) mg/dL AST (15-37) U/L ALT (16-63) U/L Alkaline Phosphatase (46-116) U/L C-Reactive Protein (<1.0) mg/dL Total Protein (6.4-8.2) g/dl Albumin (3.4-5.0) g/dl Globulin gm/dL Albumin/Globulin Ratio (1-2) Procalcitonin ng/mL Med Orders - Current: Current Medications Acetaminophen (Acetaminophen 325 Mg Tab) 650 mg PO Q8H [facility] Last Admin: 06/15/21 00:04 Dose: 650 mg Documented by: Al Hydroxide/Mg Hydroxide (Aluminum Hydroxide/Magnesium Hydroxide/Simethicone Susp 30 Ml Cup) 30 ml PO Q4H PRN PRN Reason: Heartburn Last Admin: 06/14/21 21:37 Dose: 30 ml Documented by: Albuterol (Albuterol 6.7 Gm Inhaler) 0 gm INH QID PRN PRN Reason: SOB/Wheezing Albuterol/Ipratropium (Albuterol/Ipratropium 3.0-0.5 Mg/3 Ml Neb Soln) 3 ml NEB Q4H PRN PRN Reason: Shortness Of Breath/wheezing Last Admin: 06/14/21 20:25 Dose: 3 ml Documented by: Alogliptin Benzoate (Alogliptin 12.5 Mg Tab) 12.5 mg PO BIDMEALS [facility] Last Admin: 06/15/21 06:43 Dose: 12.5 mg Documented by: Ascorbic Acid (Ascorbic Acid 500 Mg Tab) 500 mg PO DAILY [facility] Last Admin: 06/14/21 10:24 Dose: 500 mg Documented by: Baricitinib (Baricitinib 2 Mg Tab) 4 mg PO DAILY [facility] Stop: 06/26/21 09:01 Last Admin: 06/14/21 10:22 Dose: 4 mg Documented by: Dexamethasone (Dexamethasone 4 Mg Tab) 6 mg PO BID [facility] Last Admin: 06/14/21 21:36 Dose: 6 mg Documented by: Docusate Sodium (Docusate Sodium 100 Mg Cap) 100 mg PO BID PRN PRN Reason: Constipation Last Admin: 06/14/21 12:07 Dose: 100 mg Documented by: Enoxaparin Sodium (Enoxaparin 40 Mg/0.4 Ml Syringe) 40 mg SUBCUT DAILY [facility] Last Admin: 06/14/21 10:24 Dose: 40 mg Documented by: Finasteride (Finasteride 5 Mg Tab) 5 mg PO DAILY [facility] Last Admin: 06/14/21 10:23 Dose: 5 mg Documented by: Guaifenesin/Phenylephrine HCl (Guaifenesin/Dextromethorphan 100-10 Mg/5 Ml Soln 5 Ml Cup) 10 ml PO Q6H PRN PRN Reason: Cough Ceftriaxone Sodium 2 gm/ (Sodium Chloride) 100 mls @ 200 mls/hr IV Q24H [facility] Stop: 06/16/21 09:29 Last Admin: 06/14/21 10:25 Dose: 200 mls/hr Documented by: Insulin Glargine (Insulin Glargine,Hum.Rec.Anlog 100 Unit/Ml 3 Ml Pen) 32 unit SUBCUT BEDTIME [facility] Last Admin: 06/14/21 21:37 Dose: 32 unit Documented by: Insulin Human Regular (Insulin Regular, Human 100 Units/Ml 3 Ml Vial) 0 unit SUBCUT QIDACANDBED [facility]; Protocol Last Admin: 06/14/21 22:38 Dose: 6 unit Documented by: Levothyroxine Sodium (Levothyroxine 50 Mcg Tab) 50 mcg PO ACBREAKFAST [facility] Last Admin: 06/15/21 06:43 Dose: 50 mcg Documented by: Carbidopa/Levodopa 25-250 Tab Own Med 1 tab PO 0600,1100,1500,1900,2300 [facility] Last Admin: 06/15/21 06:43 Dose: 1 tab Documented by: Ondansetron HCl (Ondansetron 4 Mg Tab.Dis) 4 mg PO Q4H PRN PRN Reason: nausea, able to take PO Oxycodone HCl (Oxycodone 5 Mg Tab) 5 mg PO Q4H PRN PRN Reason: Pain (moderate 4-6) Last Admin: 06/15/21 02:39 Dose: 5 mg Documented by: Sodium Chloride (Sodium Chloride 0.9% 10 Ml Syringe) 10 ml FLUSH ASDIRECTED PRN PRN Reason: Keep Vein Open Last Admin: 06/10/21 00:24 Dose: 10 ml Documented by: Tamsulosin HCl (Tamsulosin 0.4 Mg Cap.Er) 0.4 mg PO BEDTIME [facility] Last Admin: 06/14/21 21:36 Dose: 0.4 mg Documented by: Temazepam (Temazepam 15 Mg Cap) 15 mg PO BEDTIME PRN PRN Reason: Sleep Last Admin: 06/13/21 21:18 Dose: 15 mg Documented by: Trolamine Salicylate (Trolamine Salicylate/Aloe Vera 10% Crm 85 Gm Tube) 1 gm TOP Q2H PRN PRN Reason: Pain (moderate 4-6) Last Admin: 06/13/21 09:30 Dose: 1 applic Documented by: Trospium (Trospium 20 Mg Tab) 20 mg PO BID [facility] Last Admin: 06/14/21 21:35 Dose: 20 mg Documented by: Zinc Sulfate (Zinc Sulfate 220 Mg Cap) 220 mg PO DAILY [facility] Last Admin: 06/14/21 10:24 Dose: 220 mg Documented by: Discontinued Medications Acetaminophen (Acetaminophen 325 Mg Tab) 975 mg PO NOW ONE Stop: 06/09/21 21:16 Last Admin: 06/09/21 21:41 Dose: 350 mg Documented by: Acetaminophen (Acetaminophen 650 Mg Supp) 650 mg RECTAL NOW ONE Stop: 06/09/21 21:52 Last Admin: 06/09/21 22:30 Dose: 650 mg Documented by: Acetaminophen (Acetaminophen 325 Mg Tab) 650 mg PO Q4H PRN PRN Reason: Pain (Mild 1-3)/fever Last Admin: 06/12/21 08:10 Dose: 650 mg Documented by: Acetaminophen (Acetaminophen 325 Mg Tab) 975 mg PO Q8HR [facility] Acetaminophen (Acetaminophen 325 Mg Tab) 650 mg PO Q8H [facility] Last Admin: 06/12/21 11:51 Dose: Not Given Documented by: Carbidopa/Levodopa (Carbidopa/Levodopa 25-100 Mg Tab) 1 tab PO QID [facility] Last Admin: 06/10/21 16:54 Dose: 1 tab Documented by: Dexamethasone (Dexamethasone 4 Mg/Ml 5 Ml Mdv) 6 mg IV ONETIME ONE Stop: 06/10/21 00:53 Last Admin: 06/10/21 01:31 Dose: 6 mg Documented by: Dexamethasone (Dexamethasone 4 Mg Tab) 6 mg PO DAILY [facility] Stop: 06/18/21 09:01 Last Admin: 06/12/21 08:55 Dose: 6 mg Documented by: Glimepiride (Glimepiride 2 Mg Tab) 4 mg PO DAILY [facility] Last Admin: 06/10/21 09:51 Dose: 4 mg Documented by: Glimepiride (Glimepiride 2 Mg Tab) 2 mg PO WITHBREAKFAST [facility] Last Admin: 06/11/21 06:05 Dose: 2 mg Documented by: Sodium Chloride (Normal Saline) 1,000 mls @ 250 mls/hr IV ONETIME ONE Stop: 06/10/21 01:14 Last Infusion: 06/09/21 21:41 Dose: 250 mls/hr Documented by: Sodium Chloride (Normal Saline) Confirm Administered Dose 1,000 mls @ as directed .ROUTE .STK-MED ONE Stop: 06/09/21 21:19 Last Admin: 06/10/21 01:11 Dose: Not Given Documented by: Remdesivir 200 mg/ Sodium (Chloride) 250 mls @ 250 mls/hr IV ONETIME ONE Stop: 06/10/21 00:53 Last Admin: 06/10/21 01:47 Dose: 250 mls/hr Documented by: Remdesivir 100 mg/ Sodium (Chloride) 100 mls @ 100 mls/hr IV Q24H [facility] Stop: 06/13/21 21:59 Last Admin: 06/13/21 21:19 Dose: 100 mls/hr Documented by: Ceftriaxone Sodium 1 gm/ (Sodium Chloride) 100 mls @ 200 mls/hr IV Q24H [facility] Last Admin: 06/11/21 09:01 Dose: 200 mls/hr Documented by: Azithromycin 500 mg/ Sodium (Chloride) 250 mls @ 250 mls/hr IV Q24H [facility] Stop: 06/14/21 08:59 Last Admin: 06/14/21 08:49 Dose: 250 mls/hr Documented by: Sodium Chloride (Normal Saline) 100 mls @ 75 mls/hr IV ASDIRECTED [facility] Stop: 06/13/21 13:00 Last Admin: 06/13/21 09:52 Dose: 75 mls/hr Documented by: Insulin Glargine (Insulin Glarg,Human.Rec.Analog 100 Unit/Ml) 24 unit SUBCUT BEDTIME [facility] Insulin Glargine (Insulin Glargine,Hum.Rec.Anlog 100 Unit/Ml 3 Ml Pen) 24 unit SUBCUT BEDTIME [facility] Last Admin: 06/10/21 21:05 Dose: 24 units Documented by: Insulin Glargine (Insulin Glargine,Hum.Rec.Anlog 100 Unit/Ml 3 Ml Pen) 28 unit SUBCUT BEDTIME [facility] Last Admin: 06/11/21 21:21 Dose: 28 units Documented by: Insulin Human Isoph/Insulin Regular (Insulin Nph/Insulin Regular,Human 70-30 100 Units/Ml 10 Ml Vial) 0 units SUBCUT BIDAC [facility]; Protocol Last Admin: 06/10/21 02:36 Dose: Not Given Documented by: Insulin Human Lispro (Insulin Lispro 100 Unit/Ml 3 Ml Kwikpen) 0 unit SUBCUT QIDACANDBED [facility]; Protocol Last Admin: 06/10/21 12:15 Dose: Not Given Documented by: Insulin Human Regular (Insulin Regular, Human 100 Units/Ml 3 Ml Vial) 0 unit SUBCUT [facility]; Protocol Last Admin: 06/12/21 09:12 Dose: 6 unit Documented by: Iopamidol (Iopamidol 755 Mg/Ml 100 Ml Bottle) 100 ml IVPUSH ONETIME ONE Stop: 06/09/21 23:54 Last Admin: 06/10/21 00:24 Dose: 100 ml Documented by: Iopamidol (Iopamidol 755 Mg/Ml 100 Ml Bottle) 100 ml IVPUSH ONETIME ONE Stop: 06/13/21 08:56 Last Admin: 06/13/21 09:52 Dose: 100 ml Documented by: Magnesium Hydroxide (Magnesium Hydroxide 400 Mg/5 Ml Susp 30 Ml Cup) 30 ml PO ONETIME ONE Stop: 06/13/21 06:01 Last Admin: 06/13/21 06:18 Dose: 30 ml Documented by: Met[facility] ([facility] 500 Mg Tab) [facility] Last Admin: 06/11/21 06:06 Dose: 1,000 mg Documented by: Morphine Sulfate (Morphine 2 Mg/Ml Syringe) 2 mg IVPUSH Q2H PRN PRN Reason: Pain (severe 7-10) Stop: 06/11/21 07:46 Non-Formulary Medication (Tresiba) 24 units SQ ONETIME ONE Stop: 06/10/21 03:46 Last Admin: 06/10/21 03:45 Dose: 24 units Documented by: Carbidopa/Levodopa 25-250 Tab Own Med 1 tab PO 0600,1100,1500,1900,2300 [facility] Last Admin: 06/11/21 05:29 Dose: 1 tab Documented by: Non-Formulary Medication (Sitagliptin Phos/Metformin Hcl [Janumet 50-1,000 Mg]) 1 tab PO BID [facility] Non-Formulary Medication (Non-Formulary Medication 1 Each) 1 each PO BID [facility] Sodium Chloride (Sodium Chloride 0.9% 10 Ml Syringe) 10 ml FLUSH ONETIME PRN PRN Reason: IV FLUSH Stop: 06/13/21 13:00 Trospium (Trospium 20 Mg Tab) 10 mg PO BID [facility] Last Admin: 06/10/21 21:03 Dose: 10 mg Documented by: - Exam Quality Assessment: Supplemental Oxygen (High flow 40 L at 50% FiO2), DVT Prop hylaxis. No: Urine Catheter General: Alert, Oriented, Cooperative, No Acute Distress HEENT: Pupils Equal, Pupils Reactive, Mucous Membr. Moist/[place] Neck: Supple, Trachea Midline Lungs: Normal Respiratory Effort, Decreased Breath Sounds (improving ), Crackles. No: Wheezing Cardiovascular: Regular Rate, Regular Rhythm GI/Abdominal Exam: Normal Bowel Sounds, Soft, Non-Tender, No Distention (Male) Exam: Deferred Back Exam: Normal Inspection, Decreased Range of Motion Extremities: Normal Inspection, Non-Tender, No Pedal Edema, Normal Capillary Refill, Limited Range of Motion Peripheral Pulses: 2+: Radial (L), Radial (R), Dorsalis Pedis (L), Dorsalis Pedis (R) Skin: Warm, Dry, Intact Neurological: No New Focal Deficit Psy/Mental Status: Alert, Normal Affect, Normal Mood - Patient Data Lab Results Last 24 hrs: Laboratory Results - last 24 hr 06/13/21 06/14/21 06/14/21 Range/Units 05:20 06:19 06:19 WBC 4.92 (4.23-9.07) K/mm3 RBC 4.59 L (4.63-6.08) M/mm3 Hgb 14.1 (13.7-17.5) gm/dl Hct 44.0 (40.1-51.0) % MCV 95.9 H (79.0-92.2) fl MCH 30.7 (25.7-32.2) pg MCHC 32.0 L (32.2-35.5) g/dl RDW Std Deviation 48.2 H (35.1-43.9) fL Plt Count 194 (163-337) K/mm3 MPV 10.6 (9.4-12.3) fl Neut % (Auto) 88.4 H (34.0-67.9) % Lymph % (Auto) 6.7 L (21.8-53.1) % [place] % (Auto) 4.3 L (5.3-12.2) % Eos % (Auto) 0 L (0.8-7.0) Baso % (Auto) 0.2 (0.1-1.2) % Neut # (Auto) 4.35 (1.78-5.38) K/mm3 Lymph # (Auto) 0.33 L (1.32-3.57) K/mm3 [place] # (Auto) 0.21 L (0.30-0.82) K/mm3 Eos # (Auto) 0.00 L (0.04-0.54) K/mm3 Baso # (Auto) 0.01 (0.01-0.08) K/mm3 Manual Slide Review Normal smear D-Dimer, Quantitative (0.19-0.50) mg/L Sodium 139 (136-145) mEq/L Potassium 4.5 (3.5-5.1) mEq/L Chloride 100 (98-107) mEq/L Carbon Dioxide 32 (21-32) mEq/L Anion Gap 11.5 (5-15) BUN 22 H (7-18) mg/dL Creatinine 0.9 (0.7-1.3) mg/dL Est Cr Clr Drug Dosing 86.26 mL/min Estimated GFR (MDRD) > 60 (>60) mL/min BUN/Creatinine Ratio 24.4 H (14-18) Glucose 92 (70-99) mg/dL POC Glucose (70-99) mg/dL Calcium 8.4 L (8.5-10.1) mg/dL Magnesium 2.1 (1.8-2.4) mg/dL Total Bilirubin 0.6 (0.2-1.0) mg/dL AST 28 (15-37) U/L ALT 15 L (16-63) U/L Alkaline Phosphatase 46 (46-116) U/L C-Reactive Protein 4.6 H* (<1.0) mg/dL Total Protein 6.8 (6.4-8.2) g/dl Albumin 2.4 L (3.4-5.0) g/dl Globulin 4.4 gm/dL Albumin/Globulin Ratio 0.6 L (1-2) Procalcitonin 0.29 H ng/mL 06/14/21 06/14/21 06/14/21 Range/Units 12:04 17:34 21:33 WBC (4.23-9.07) K/mm3 RBC (4.63-6.08) M/mm3 Hgb (13.7-17.5) gm/dl Hct (40.1-51.0) % MCV (79.0-92.2) fl MCH (25.7-32.2) pg MCHC (32.2-35.5) g/dl RDW Std Deviation (35.1-43.9) fL Plt Count (163-337) K/mm3 MPV (9.4-12.3) fl Neut % (Auto) (34.0-67.9) % Lymph % (Auto) (21.8-53.1) % [place] % (Auto) (5.3-12.2) % Eos % (Auto) (0.8-7.0) Baso % (Auto) (0.1-1.2) % Neut # (Auto) (1.78-5.38) K/mm3 Lymph # (Auto) (1.32-3.57) K/mm3 [place] # (Auto) (0.30-0.82) K/mm3 Eos # (Auto) (0.04-0.54) K/mm3 Baso # (Auto) (0.01-0.08) K/mm3 Manual Slide Review D-Dimer, Quantitative (0.19-0.50) mg/L Sodium (136-145) mEq/L Potassium (3.5-5.1) mEq/L Chloride (98-107) mEq/L Carbon Dioxide (21-32) mEq/L Anion Gap (5-15) BUN (7-18) mg/dL Creatinine (0.7-1.3) mg/dL Est Cr Clr Drug Dosing mL/min Estimated GFR (MDRD) (>60) mL/min BUN/Creatinine Ratio (14-18) Glucose (70-99) mg/dL POC Glucose 199 H 187 H 244 H (70-99) mg/dL Calcium (8.5-10.1) mg/dL Magnesium (1.8-2.4) mg/dL Total Bilirubin (0.2-1.0) mg/dL AST (15-37) U/L ALT (16-63) U/L Alkaline Phosphatase (46-116) U/L C-Reactive Protein (<1.0) mg/dL Total Protein (6.4-8.2) g/dl Albumin (3.4-5.0) g/dl Globulin gm/dL Albumin/Globulin Ratio (1-2) Procalcitonin ng/mL 06/15/21 06/15/21 06/15/21 Range/Units 05:59 05:59 05:59 WBC 9.30 H (4.23-9.07) K/mm3 RBC 4.75 (4.63-6.08) M/mm3 Hgb 14.4 (13.7-17.5) gm/dl Hct 44.9 (40.1-51.0) % MCV 94.5 H (79.0-92.2) fl MCH 30.3 (25.7-32.2) pg MCHC 32.1 L (32.2-35.5) g/dl RDW Std Deviation 47.9 H (35.1-43.9) fL Plt Count 203 (163-337) K/mm3 MPV 10.2 (9.4-12.3) fl Neut % (Auto) 93.9 H (34.0-67.9) % Lymph % (Auto) 3.1 L (21.8-53.1) % [place] % (Auto) 2.5 L (5.3-12.2) % Eos % (Auto) 0 L (0.8-7.0) Baso % (Auto) 0.1 (0.1-1.2) % Neut # (Auto) 8.73 H (1.78-5.38) K/mm3 Lymph # (Auto) 0.29 L (1.32-3.57) K/mm3 [place] # (Auto) 0.23 L (0.30-0.82) K/mm3 Eos # (Auto) 0.00 L (0.04-0.54) K/mm3 Baso # (Auto) 0.01 (0.01-0.08) K/mm3 Manual Slide Review Normal smear D-Dimer, Quantitative 20.38 H (0.19-0.50) mg/L Sodium 139 (136-145) mEq/L Potassium 4.4 (3.5-5.1) mEq/L Chloride 102 (98-107) mEq/L Carbon Dioxide 28 (21-32) mEq/L Anion Gap 13.4 (5-15) BUN 29 H (7-18) mg/dL Creatinine 1.0 (0.7-1.3) mg/dL Est Cr Clr Drug Dosing 77.63 mL/min Estimated GFR (MDRD) > 60 (>60) mL/min BUN/Creatinine Ratio 29.0 H (14-18) Glucose 164 H (70-99) mg/dL POC Glucose (70-99) mg/dL Calcium 8.7 (8.5-10.1) mg/dL Magnesium 2.1 (1.8-2.4) mg/dL Total Bilirubin 0.6 (0.2-1.0) mg/dL AST 27 (15-37) U/L ALT 14 L (16-63) U/L Alkaline Phosphatase 46 (46-116) U/L C-Reactive Protein 2.7 H* (<1.0) mg/dL Total Protein 6.6 (6.4-8.2) g/dl Albumin 2.5 L (3.4-5.0) g/dl Globulin 4.1 gm/dL Albumin/Globulin Ratio 0.6 L (1-2) Procalcitonin ng/mL 06/15/21 Range/Units 05:59 WBC (4.23-9.07) K/mm3 RBC (4.63-6.08) M/mm3 Hgb (13.7-17.5) gm/dl Hct (40.1-51.0) % MCV (79.0-92.2) fl MCH (25.7-32.2) pg MCHC (32.2-35.5) g/dl RDW Std Deviation (35.1-43.9) fL Plt Count (163-337) K/mm3 MPV (9.4-12.3) fl Neut % (Auto) (34.0-67.9) % Lymph % (Auto) (21.8-53.1) % [place] % (Auto) (5.3-12.2) % Eos % (Auto) (0.8-7.0) Baso % (Auto) (0.1-1.2) % Neut # (Auto) (1.78-5.38) K/mm3 Lymph # (Auto) (1.32-3.57) K/mm3 [place] # (Auto) (0.30-0.82) K/mm3 Eos # (Auto) (0.04-0.54) K/mm3 Baso # (Auto) (0.01-0.08) K/mm3 Manual Slide Review D-Dimer, Quantitative (0.19-0.50) mg/L Sodium (136-145) mEq/L Potassium (3.5-5.1) mEq/L Chloride (98-107) mEq/L Carbon Dioxide (21-32) mEq/L Anion Gap (5-15) BUN (7-18) mg/dL Creatinine (0.7-1.3) mg/dL Est Cr Clr Drug Dosing mL/min Estimated GFR (MDRD) (>60) mL/min BUN/Creatinine Ratio (14-18) Glucose (70-99) mg/dL POC Glucose 147 H (70-99) mg/dL Calcium (8.5-10.1) mg/dL Magnesium (1.8-2.4) mg/dL Total Bilirubin (0.2-1.0) mg/dL AST (15-37) U/L ALT (16-63) U/L Alkaline Phosphatase (46-116) U/L C-Reactive Protein (<1.0) mg/dL Total Protein (6.4-8.2) g/dl Albumin (3.4-5.0) g/dl Globulin gm/dL Albumin/Globulin Ratio (1-2) Procalcitonin ng/mL Result Diagrams: 06/15/21 05:59 06/15/21 05:59 Sepsis Event Note - Evaluation Sepsis Screening Result: No Definite Risk - Focused Exam Vital Signs: Vital Signs Temp Pulse Resp BP Pulse Ox Pulse Ox Pulse Ox 06/15/21 05:27 94 L 06/15/21 00:05 97.9 F 77 24 H 142/77 H 85 L 06/14/21 20:30 90 L 06/14/21 20:26 90 L 06/14/21 20:18 97.7 F 74 28 H 151/80 H 90 L - Problem List & Annotations (1) Acute respiratory failure due to COVID-19 SNOMED Code(s): 854198286 Code(s): U07.1 - COVID-19; J96.00 - ACUTE RESPIRATORY FAILURE, UNSP W HYPOXIA OR HYPERCAPNIA Status: Acute Priority: High Current Visit: Yes (2) Pneumonia due to COVID-19 virus SNOMED Code(s): 274186265536963271 Code(s): U07.1 - COVID-19; J12.82 - PNEUMONIA DUE TO CORONAVIRUS DISEASE 2019 Status: Acute Priority: High Current Visit: Yes (3) Diabetes mellitus type 2 in nonobese SNOMED Code(s): 362977844 Code(s): E11.9 - TYPE 2 DIABETES MELLITUS WITHOUT COMPLICATIONS Status: Chronic Priority: High Current Visit: Yes (4) Parkinson's disease dementia SNOMED Code(s): 815411370098934 Code(s): G20 - PARKINSON'S DISEASE; F02.80 - DEMENTIA IN OTH DISEASES CLASSD ELSWHR W/O BEHAVRL DISTURB Status: Chronic Priority: High Current Visit: Yes Qualifiers: Dementia behavioral disturbance: without behavioral disturbance Qualified Code(s): G20 - Parkinson's disease; F02.80 - Dementia in other diseases classified elsewhere without behavioral disturbance (5) Elevated C-reactive protein (CRP) SNOMED Code(s): 969192975783530 Code(s): R79.82 - ELEVATED C-REACTIVE PROTEIN (CRP) Status: Acute Priority: High Current Visit: Yes (6) Elevated d-dimer SNOMED Code(s): 847291181 Code(s): R79.89 - OTHER SPECIFIED ABNORMAL FINDINGS OF BLOOD CHEMISTRY Status: Acute Priority: High Current Visit: Yes (7) Elevated procalcitonin SNOMED Code(s): 144122364, 698252556 Code(s): R79.89 - OTHER SPECIFIED ABNORMAL FINDINGS OF BLOOD CHEMISTRY Sta tus: Resolved Priority: High Current Visit: Yes - Problem List Review Problem List Initiated/Reviewed/Updated: Yes - My Orders Last 24 Hours: My Active Orders 06/14/21 10:46 Isolation [COMM] Stat - Plan Plan:: The patient is a 71-year-old gentleman who has been admitted to acute hospitalization secondary to pneumonia associated with COVID-19. The patient has been started on dexamethasone 6 mg p.o. daily. The patient also has been started on remdesivir 100 mg IV daily as he was given 200 mg IV in the emergency department. The patient will be kept on carb constant diet and Accu-Cheks before meals and at bedtime. He is on insulin sliding scale low-dose. The patient has a history of what appears to be Parkinson's dementia and he is also on carbidopa/levodopa and this has been continued as a part of his home medications. The patient's DVT prophylaxis will be the use of Lovenox 40 mg subcutaneous daily. Oxygen will be titrated to keep his saturations around 92%. Repeat laboratory studies have been ordered. PT OT also has been ordered for the patient. Because of the patient's comorbidities and his COVID-19 pneumonia his overall prognosis is poor. 06/11/2021 71-year-old male with a history of Parkinson's disease admitted for treatment of his COVID-19 pneumonia. Patient was noted to be very confused on admission and this has improved greatly. He is alert to person place and time. He continues on dexamethasone and remdesivir. Labs today show a WBC of 7.26. Hemoglobin 12.7. Platelet 178,000. Patient has been on Rocephin and there is no clear indication for this. We will therefore discontinue it. Procalcitonin is pending. Blood cultures are negative. D-dimer is elevated at 2.61 which is an improvement over yesterday. Patient CTA was negative however we will also check lower extremities for DVT. No obvious signs of DVT at this point. Sodium 138. Potassium 4.5. Chloride 103. Carbon dioxide 26. Anion gap 13.5. BUN is 31. Creatinine 1.0. GFR is improved to greater than 60. Glucose has been ranging from 345-237. We will discontinue patient's Metformin but we will continue alogliptin. We will increase patient's long-acting insulin to 28 units at bedtime as he has been receiving significant amounts of sliding scale insulin. Magnesium is 2.2. Bilirubin 0.4. AST is 32, ALT 9, alkaline phosphatase 40. CRP is 12.0. Protein is 5.9. Albumin is 2.3. There is some confusion with when the patient actually developed symptoms whether or not his symptoms have been improving or worsening. Because of this we will keep the patient on quarantine for a total of 10 days unless he requires high flow. This would mean he may come off of isolation at 06/15/2021 at 23:59. Discussed plan of care with patient. He reports he would like us to discuss this with his daughters. There is some [id number] on whether or not to continue remdesivir and ultimately decision is made to continue this as patient's liver enzymes and renal function look good. Family requests zinc and vitamin C be started and this seems reasonable. They would like vitamin D be started and we will check a level of this prior to prescribing. All questions answered. Unknown length of stay due to severity of COVID-19 illness. 06/12/2021 This is a 71-year-old male with a history of Parkinson's disease who is admitted to a floor for altered mental status and COVID-19 pneumonia. His mental status remains greatly improved with baseline confusion. He is on 6 to 7 L via nasal cannula with saturations in the upper 80s to low 90s. His procalcitonin from yesterday returned quite elevated at 2.04. Because of this we will resume Rocephin 2 g and start 3 days worth of azithromycin. We will check a UA on the patient as well. Labs today show a WBC of 5.09. Hemoglobin 12.5. Platelet of 202,000. Neutrophils are elevated 85.1%. Sodium 139. Potassium 4.4. Chloride 102. Carbon dioxide 31. Anion gap 10.4. BUN is 31. Creatinine 1.1. GFR is greater than 60. Glucose has remained elevated at 2 48-2 82 we will continue to monitor this and adjust insulin as needed. Magnesium is 2.2. Bilirubin 0.5. AST is 27, ALT 18, alkaline phosphatase 39. CRP is down to 5.6. Albumin is 2.2. We will continue remdesivir and dexamethasone. Patient's vitamin D level was within normal limits at 81.0 we will not start vitamin D supplementation. Patient is reporting significant joint pain and we will order as needed Aspercreme and scheduled Tylenol. Unknown length of stay due to severity of COVID-19 illness. 06/13/2021 71-year-old male with a history of Parkinson's disease was admitted to the floor for treatment of his COVID-19 pneumonia. Unfortunately patient's oxygen saturations have continued to drop he is now requiring high flow oxygen 55 L with an FiO2 of 85%. Overall he states he feels worse today than he did yesterday. Blood cultures remain negative. Labs show WBC of 4.54. Hemoglobin is 13.2. Platelets 200,000. Neutrophils are elevated 84.8%. D-dimer increased today to 6.74. Because of this and his worsening saturations patient was sent for CTA, which was negative although there was noted suboptimal opacification of the main or segmental branches. It is noted that smaller subsegmental pulmonary emboli could be missed. Diffuse parenchymal densities within both sides of the chest are noted however there is slight improvement also noted. Other chronic findings are noted. Sodium is 140. Potassium 4.6. Chloride 102. Carbon dioxide 32. BUN is 24. Creatinine 1.0. GFR is greater than 60. Blood glucose readings have improved from 1 62-2 25. Magnesium is 1.9. B ilirubin 0.5. AST is 28, ALT 7, alkaline phosphatase 41. CRP is 3.0. Protein is 6.2. Albumin is 2.2. UA was obtained yesterday and was negative however 1+ protein, 2+ glucose, and trace ketones are noted. At the patient's request of his daughter Clemencia was contacted at [phone] to discuss progress and possibly starting baricitinib. They will get back to us regarding this. We will consider moving patient to ICU should a bed become available given his rapidly deteriorating status. Unknown length of stay due to severity of Covid symptoms. We will continue remdesivir and increase dexamethasone to 6 mg twice daily starting today. Patient also continues on 3 days worth of azithromycin and 5 days worth of Rocephin. We will recheck a procalcitonin given his prior elevated resolved. Length of stay greater than 96 hours due to need for continued COVID-19 treatment. 06/14/2021 71-year-old male with history of Parkinson's disease admitted to the floor for COVID-19. Saturations have improved today and he remains on 50 L high flow with an FiO2 of 65%. Blood cultures remain negative. Vital signs otherwise been stable. He completed azithromycin and continues on Rocephin. He completed his remdesivir treatment. As the patient was having rapidly worsening oxygen saturations baricitinib was recommended yesterday and after discussion with the patient and amongst family members they ultimately agreed in the evening hours. WBC is 4.92. Hemoglobin 14.1. Platelet 194,000. Neutrophils are 88.4%. Blood smear is normal. Sodium is 139. Potassium 4.5. Chloride 100. Carbon oxide 32. Anion gap 11.5. BUN is 22. Creatinine 0.9. GFR greater than 60. Glucose is 97-1 58. Magnesium 2.1. Bilirubin 0.6. AST is 28, ALT is 15, alkaline phosphatase 46. CRP is 4.6. Albumin is 2.4. We will continue current treatment plan and attempt to wean off oxygen as the patient tolerates. Unknown length of stay. Because of his significant worsening in oxygen saturations over the last 12-24 hours I have recommended baricitinib. I spoke with Yehuda and his daughter Elena via phone to provide information about baricitinib. I offered the "fax sheet for patients and parents/caregivers, for baricitinib" to read and review. I stated that therapy has been approved by an emergency use authorization process and has not fully been FDA reviewed or approved. I shared potential risks from the therapy including increased risk for serious infections, anaphylaxis, and reaction to medication. I discussed there are other potential treatment options that are currently not FDA approved to treat COVID-19. Offered opportunity to ask questions and all questions were answered. Yehuda and Elena voiced understanding and after some discussion agreed to proceed with treatment. 06/15/2021 This is a 71-year-old male with a history of Parkinson's disease who was admitted to the floor for treatment of COVID-19 pneumonia. His saturations have been improving with therapy and he is currently on 40 L with an FiO2 of 50%. He continues on Rocephin with his last dose tomorrow and he completed azithromycin and remdesivir. He also continues on dexamethasone 6 mg twice daily and baricitinib. Today patient's D-dimer was noted to be 20.38. Patient has had 2 CTAs with PE protocol and has had his legs scanned for DVT. Given his improving oxygen saturations and lack of leg pain or other signs of DVT, combined with his prior imaging we will forego scanning and begin 1 mg/kg twice daily Lovenox treatment. We will continue to monitor D-dimers as ordered. Otherwise patient states that he is feeling better. His lung sounds are improving with better aeration of the lower amado. He has not been sleeping well at night and we will start him on scheduled melatonin. We will also start the let me sleep protocol. Given his continued stability we will decrease vital signs to 4 times daily. Labs today show a leukocytosis of 9.30. Hemoglobin is 14.4. Platelet 203,000. Smear is normal. D-dimer as mentioned prior was 20.38. Sodium 139. Potassium 4.4. Chloride 102. Carbon dioxide 28. Anion gap 13.4. BUN is 29. Creatinine 1.0. GFR greater than 60. Glucose has been between 147 and 244. Calcium is 8.7. Magnesium 2.1. Total bilirubin 0.6. AST is 27, ALT 14, alkaline phosphatase 46. CRP is 2.7. Given the severity of his symptoms he will require 20 days of isolation/quarantine. Unknown length of stay due to continued severity of COVID-19 pneumonia. Goal saturations will be 2 L or less via nasal cannula prior to discharge. Patient's daughter Clemencia updated on patient's progress and plan of care at request of patient.
[2021-06-15] MEDS: Albuterol/Ipratropium 3.0-0.5 MG/3 ML Neb Soln NEB PRN ×2 (08:23→21:05)
[2021-06-15] MEDS: Insulin Regular, Human 100 Units/ML 3 ML Vial SUBCUT SCH ×4 (08:27→22:13)
[2021-06-15] MEDS: Trospium 20 MG Tab PO SCH ×2 (09:18→21:59)
[2021-06-15] MEDS: Zinc Sulfate 220 MG Cap PO SCH (09:18)
[2021-06-15] MEDS: Dexamethasone 4 MG Tab PO SCH ×2 (09:18→22:00)
[2021-06-15] MEDS: Enoxaparin 100 MG/1 ML Syringe SUBCUT SCH ×2 (09:18→22:00)
[2021-06-15] MEDS: Finasteride 5 MG Tab PO SCH (09:18)
[2021-06-15] MEDS: Ascorbic Acid 500 MG Tab PO SCH (09:18)
[2021-06-15] MEDS: cefTRIAXone 2 GM in Sodium Chloride 0.9% 100 ML IV SCH (09:19)
[2021-06-15] MEDS: Melatonin 3 MG Tab PO SCH (22:00)
[2021-06-15] MEDS: Tamsulosin 0.4 MG Cap.ER PO SCH (22:00)
[2021-06-15] MEDS: Insulin Glargine,Hum.Rec.Anlog 100 UNIT/ML 3 ML Pen SUBCUT SCH (22:12)
[2021-06-16] MEDS: Acetaminophen 325 MG Tab PO SCH ×4 (02:16→21:05)
[2021-06-16] MEDS ORDERED: Lactated Ringers 1,000 ML ONE (06:43)
[2021-06-16] MEDS ORDERED: Lactated Ringers 1,000 ML IV SCH (06:45)
[2021-06-16] MEDS ORDERED: Pantoprazole 40 MG Vial IVPUSH ONE (07:04)
[2021-06-16] MEDS ORDERED: Piperacillin/Tazobactam 4.5 GM in Sodium Chloride 0.9% 100 ML IV ONE (08:02)
--- NOTE | 2021-06-16 08:02 | CR ---
Chest: Portable view of the chest was obtained. Comparison: Prior chest x-ray of 06/09/21. Patchy increased density is seen within both sides of the chest, findings are improved from prior chest x-ray. Heart size is normal. Upper mediastinum is normal. Bony structures show scattered degenerative change within the spine and the right shoulder. Impression: 1. Parenchymal densities within both sides of the chest, findings have improved from prior chest x-ray. 2. Nothing acute is otherwise seen on frontal chest x-ray. Diagnostic code #2
[2021-06-16] MEDS: LEVODOPA PO SCH ×5 (08:17→22:40)
[2021-06-16] MEDS: Levothyroxine 50 MCG Tab PO SCH (08:17)
[2021-06-16] MEDS: CARBIDOPA PO SCH ×5 (08:17→22:40)
[2021-06-16] MEDS: Insulin Regular, Human 100 Units/ML 3 ML Vial SUBCUT SCH ×4 (08:18→22:40)
[2021-06-16] MEDS: Albuterol/Ipratropium 3.0-0.5 MG/3 ML Neb Soln NEB PRN ×2 (08:44→14:24)
[2021-06-16] MEDS: Finasteride 5 MG Tab PO SCH ×2 (10:59→14:58)
[2021-06-16] MEDS: Dexamethasone 4 MG Tab PO SCH ×3 (10:59→21:04)
[2021-06-16] MEDS: Trospium 20 MG Tab PO SCH ×3 (11:00→21:05)
[2021-06-16] MEDS: Zinc Sulfate 220 MG Cap PO SCH (11:00)
[2021-06-16] MEDS: Ascorbic Acid 500 MG Tab PO SCH (11:00)
--- NOTE | 2021-06-16 11:27 | PCM.PN ---
- General Info Date of Service: 06/16/21 Admission Dx/Problem (Free Text): Admission Diagnosis/Problem Admission Diagnosis/Problem acute respiratory failure due to COVID-19 pneumonia. Subjective Update: I was called this morning after patient had a large coffee-ground emesis. Yesterday we increased his Lovenox 200 mg every 12 hours per full dose protocol for anticoagulation. Patient's D-dimer had increased to 20, but CTA of the chest done on June 13 was negative for PE but slightly suboptimal opacification of the pulmonary arteries. Because the smaller subsegmental pulmonary emboli could be missed and he had a continuing increase in his D-dimer we felt that prudent to treat him with full anticoagulation. Also of note venous Doppler studies were negative for DVT. There was concern that patient could have aspirated when he had the large coffee-ground emesis. Chest x-ray was performed which showed improvement in the parenchymal densities within both sides of the chest. He was switched over to Zosyn to cover for aspiration pneumonia. He had an increase oxygen requirement and high flow requirement precipitating the increase coverage. Also, patient is much more lethargic and answering and only short sentences. Family was updated. Functional Status: Reports: Other (Unable to give review of systems) - Patient Data Vitals - Most Recent: Last Vital Signs Temp 99.6 F 06/16/21 09:00 Pulse 108 H 06/16/21 07:03 Resp 27 H 06/16/21 11:00 BP 123/56 L 06/16/21 10:01 Pulse Ox 91 L 06/16/21 11:00 Weight - Most Recent: 216 lb 14.4 oz I&O - Last 24 Hours: Intake & Output 06/15/21 06/16/21 06/16/21 22:59 06:59 14:59 Intake Total 900 300 Output Total 750 350 180 Balance 150 -50 -180 Lab Results Last 24 Hours: Laboratory Results - last 24 hr 06/15/21 06/15/21 06/15/21 Range/Units 11:38 17:05 22:11 WBC (4.23-9.07) K/mm3 RBC (4.63-6.08) M/mm3 Hgb (13.7-17.5) gm/dl Hct (40.1-51.0) % MCV (79.0-92.2) fl MCH (25.7-32.2) pg MCHC (32.2-35.5) g/dl RDW Std Deviation (35.1-43.9) fL Plt Count (163-337) K/mm3 MPV (9.4-12.3) fl Neut % (Auto) (34.0-67.9) % Lymph % (Auto) (21.8-53.1) % Harris % (Auto) (5.3-12.2) % Eos % (Auto) (0.8-7.0) Baso % (Auto) (0.1-1.2) % Neut # (Auto) (1.78-5.38) K/mm3 Lymph # (Auto) (1.32-3.57) K/mm3 Harris # (Auto) (0.30-0.82) K/mm3 Eos # (Auto) (0.04-0.54) K/mm3 Baso # (Auto) (0.01-0.08) K/mm3 Manual Slide Review Sodium (136-145) mEq/L Potassium (3.5-5.1) mEq/L Chloride (98-107) mEq/L Carbon Dioxide (21-32) mEq/L Anion Gap (5-15) BUN (7-18) mg/dL Creatinine (0.7-1.3) mg/dL Est Cr Clr Drug Dosing mL/min Estimated GFR (MDRD) (>60) mL/min BUN/Creatinine Ratio (14-18) Glucose (70-99) mg/dL POC Glucose 221 H 132 H 134 H (70-99) mg/dL Calcium (8.5-10.1) mg/dL Phosphorus (2.6-4.7) mg/dL Magnesium (1.8-2.4) mg/dL Total Bilirubin (0.2-1.0) mg/dL AST (15-37) U/L ALT (16-63) U/L Alkaline Phosphatase (46-116) U/L C-Reactive Protein (<1.0) mg/dL Total Protein (6.4-8.2) g/dl Albumin (3.4-5.0) g/dl Globulin gm/dL Albumin/Globulin Ratio (1-2) 06/16/21 06/16/21 06/16/21 Range/Units 06:10 07:00 07:00 WBC 11.45 H (4.23-9.07) K/mm3 RBC 5.26 (4.63-6.08) M/mm3 Hgb 16.2 D (13.7-17.5) gm/dl Hct 49.9 (40.1-51.0) % MCV 94.9 H (79.0-92.2) fl MCH 30.8 (25.7-32.2) pg MCHC 32.5 (32.2-35.5) g/dl RDW Std Deviation 48.5 H (35.1-43.9) fL Plt Count 188 (163-337) K/mm3 MPV 10.1 (9.4-12.3) fl Neut % (Auto) 90.6 H (34.0-67.9) % Lymph % (Auto) 5.2 L (21.8-53.1) % Harris % (Auto) 3.4 L (5.3-12.2) % Eos % (Auto) 0.3 L (0.8-7.0) Baso % (Auto) 0.0 L (0.1-1.2) % Neut # (Auto) 10.37 H (1.78-5.38) K/mm3 Lymph # (Auto) 0.60 L (1.32-3.57) K/mm3 Harris # (Auto) 0.39 (0.30-0.82) K/mm3 Eos # (Auto) 0.03 L (0.04-0.54) K/mm3 Baso # (Auto) 0.00 L (0.01-0.08) K/mm3 Manual Slide Review Normal smear Sodium 144 (136-145) mEq/L Potassium 3.6 (3.5-5.1) mEq/L Chloride 108 H (98-107) mEq/L Carbon Dioxide 23 (21-32) mEq/L Anion Gap 16.6 H (5-15) BUN 26 H (7-18) mg/dL Creatinine 1.7 H (0.7-1.3) mg/dL Est Cr Clr Drug Dosing 45.67 mL/min Estimated GFR (MDRD) 40 (>60) mL/min BUN/Creatinine Ratio 15.3 (14-18) Glucose 83 (70-99) mg/dL POC Glucose 96 (70-99) mg/dL Calcium 8.1 L (8.5-10.1) mg/dL Phosphorus 4.4 (2.6-4.7) mg/dL Magnesium 2.1 (1.8-2.4) mg/dL Total Bilirubin 0.5 (0.2-1.0) mg/dL AST 20 (15-37) U/L ALT 14 L (16-63) U/L Alkaline Phosphatase 98 (46-116) U/L C-Reactive Protein 1.9 H* (<1.0) mg/dL Total Protein 6.5 (6.4-8.2) g/dl Albumin 2.8 L (3.4-5.0) g/dl Globulin 3.7 gm/dL Albumin/Globulin Ratio 0.8 L (1-2) 06/16/21 Range/Units 11:10 WBC (4.23-9.07) K/mm3 RBC (4.63-6.08) M/mm3 Hgb (13.7-17.5) gm/dl Hct (40.1-51.0) % MCV (79.0-92.2) fl MCH (25.7-32.2) pg MCHC (32.2-35.5) g/dl RDW Std Deviation (35.1-43.9) fL Plt Count (163-337) K/mm3 MPV (9.4-12.3) fl Neut % (Auto) (34.0-67.9) % Lymph % (Auto) (21.8-53.1) % Harris % (Auto) (5.3-12.2) % Eos % (Auto) (0.8-7.0) Baso % (Auto) (0.1-1.2) % Neut # (Auto) (1.78-5.38) K/mm3 Lymph # (Auto) (1.32-3.57) K/mm3 Harris # (Auto) (0.30-0.82) K/mm3 Eos # (Auto) (0.04-0.54) K/mm3 Baso # (Auto) (0.01-0.08) K/mm3 Manual Slide Review Sodium (136-145) mEq/L Potassium (3.5-5.1) mEq/L Chloride (98-107) mEq/L Carbon Dioxide (21-32) mEq/L Anion Gap (5-15) BUN (7-18) mg/dL Creatinine (0.7-1.3) mg/dL Est Cr Clr Drug Dosing mL/min Estimated GFR (MDRD) (>60) mL/min BUN/Creatinine Ratio (14-18) Glucose (70-99) mg/dL POC Glucose 87 (70-99) mg/dL Calcium (8.5-10.1) mg/dL Phosphorus (2.6-4.7) mg/dL Magnesium (1.8-2.4) mg/dL Total Bilirubin (0.2-1.0) mg/dL AST (15-37) U/L ALT (16-63) U/L Alkaline Phosphatase (46-116) U/L C-Reactive Protein (<1.0) mg/dL Total Protein (6.4-8.2) g/dl Albumin (3.4-5.0) g/dl Globulin gm/dL Albumin/Globulin Ratio (1-2) Manolo Results Last 24 Hours: Microbiology 06/09/21 21:21 Blood Culture - Final Blood - Venous - Lab Draw 06/09/21 21:10 Blood Culture - Final Blood - Venous Med Orders - Current: Current Medications Acetaminophen (Acetaminophen 325 Mg Tab) 650 mg PO Q8H [facility] Last Admin: 06/16/21 08:18 Dose: Not Given Documented by: Al Hydroxide/Mg Hydroxide (Aluminum Hydroxide/Magnesium Hydroxide/Simethicone Susp 30 Ml Cup) 30 ml PO Q4H PRN PRN Reason: Heartburn Last Admin: 06/14/21 21:37 Dose: 30 ml Documented by: Albuterol (Albuterol 6.7 Gm Inhaler) 0 gm INH QID PRN PRN Reason: SOB/Wheezing Albuterol/Ipratropium (Albuterol/Ipratropium 3.0-0.5 Mg/3 Ml Neb Soln) 3 ml NEB Q4H PRN PRN Reason: Shortness Of Breath/wheezing Last Admin: 06/16/21 08:44 Dose: 3 ml Documented by: Alogliptin Benzoate (Alogliptin 12.5 Mg Tab) 12.5 mg PO BIDMEALS [facility] Last Admin: 06/16/21 08:18 Dose: Not Given Documented by: Ascorbic Acid (Ascorbic Acid 500 Mg Tab) 500 mg PO DAILY [facility] Last Admin: 06/16/21 11:00 Dose: Not Given Documented by: Baricitinib (Baricitinib 2 Mg Tab) 4 mg PO DAILY [facility] Stop: 06/26/21 09:01 Last Admin: 06/16/21 10:59 Dose: Not Given Documented by: Dexamethasone (Dexamethasone 4 Mg Tab) 6 mg PO BID [facility] Last Admin: 06/16/21 10:59 Dose: Not Given Documented by: Docusate Sodium (Docusate Sodium 100 Mg Cap) 100 mg PO BID PRN PRN Reason: Constipation Last Admin: 06/14/21 12:07 Dose: 100 mg Documented by: Finasteride (Finasteride 5 Mg Tab) 5 mg PO DAILY [facility] Last Admin: 06/16/21 10:59 Dose: Not Given Documented by: Guaifenesin/Phenylephrine HCl (Guaifenesin/Dextromethorphan 100-10 Mg/5 Ml Soln 5 Ml Cup) 10 ml PO Q6H PRN PRN Reason: Cough Lactated Ringer's (Ringers, Lactated) 1,000 mls @ 150 mls/hr IV ASDIRECTED [facility] Last Admin: 06/16/21 06:45 Dose: 150 mls/hr Documented by: Piperacillin Sod/Tazobactam (Sod 4.5 gm/ Sodium Chloride) 100 mls @ 25 mls/hr IV Q8H [facility] Insulin Glargine (Insulin Glargine,Hum.Rec.Anlog 100 Unit/Ml 3 Ml Pen) 32 unit SUBCUT BEDTIME [facility] Last Admin: 06/15/21 22:12 Dose: 32 unit Documented by: Insulin Human Regular (Insulin Regular, Human 100 Units/Ml 3 Ml Vial) 0 unit SUBCUT QIDACANDBED [facility]; Protocol Last Admin: 06/16/21 11:12 Dose: Not Given Documented by: Levothyroxine Sodium (Levothyroxine 50 Mcg Tab) 50 mcg PO ACBREAKFAST [facility] Last Admin: 06/16/21 08:17 Dose: Not Given Documented by: Melatonin (Melatonin 3 Mg Tab) 6 mg PO BEDTIME [facility] Last Admin: 06/15/21 22:00 Dose: 6 mg Documented by: Carbidopa/Levodopa 25-250 Tab Own Med 1 tab PO 0600,1100,1500,1900,2300 [facility] Last Admin: 06/16/21 11:00 Dose: Not Given Documented by: Ondansetron HCl (Ondansetron 4 Mg Tab.Dis) 4 mg PO Q4H PRN PRN Reason: nausea, able to take PO Oxycodone HCl (Oxycodone 5 Mg Tab) 5 mg PO Q4H PRN PRN Reason: Pain (moderate 4-6) Last Admin: 06/15/21 22:01 Dose: 5 mg Documented by: Sodium Chloride (Sodium Chloride 0.9% 10 Ml Syringe) 10 ml FLUSH ASDIRECTED PRN PRN Reason: Keep Vein Open Last Admin: 06/10/21 00:24 Dose: 10 ml Documented by: Tamsulosin HCl (Tamsulosin 0.4 Mg Cap.Er) 0.4 mg PO BEDTIME [facility] Last Admin: 06/15/21 22:00 Dose: 0.4 mg Documented by: Temazepam (Temazepam 15 Mg Cap) 15 mg PO BEDTIME PRN PRN Reason: Sleep Last Admin: 06/13/21 21:18 Dose: 15 mg Documented by: Trolamine Salicylate (Trolamine Salicylate/Aloe Vera 10% Crm 85 Gm Tube) 1 gm TOP Q2H PRN PRN Reason: Pain (moderate 4-6) Last Admin: 06/13/21 09:30 Dose: 1 applic Documented by: Trospium (Trospium 20 Mg Tab) 20 mg PO BID [facility] Last Admin: 06/16/21 11:00 Dose: Not Given Documented by: Zinc Sulfate (Zinc Sulfate 220 Mg Cap) 220 mg PO DAILY [facility] Last Admin: 06/16/21 11:00 Dose: Not Given Documented by: Discontinued Medications Acetaminophen (Acetaminophen 325 Mg Tab) 975 mg PO NOW ONE Stop: 06/09/21 21:16 Last Admin: 06/09/21 21:41 Dose: 350 mg Documented by: Acetaminophen (Acetaminophen 650 Mg Supp) 650 mg RECTAL NOW ONE Stop: 06/09/21 21:52 Last Admin: 06/09/21 22:30 Dose: 650 mg Documented by: Acetaminophen (Acetaminophen 325 Mg Tab) 650 mg PO Q4H PRN PRN Reason: Pain (Mild 1-3)/fever Last Admin: 06/12/21 08:10 Dose: 650 mg Documented by: Acetaminophen (Acetaminophen 325 Mg Tab) 975 mg PO Q8HR [facility] Acetaminophen (Acetaminophen 325 Mg Tab) 650 mg PO Q8H [facility] Last Admin: 06/12/21 11:51 Dose: Not Given Documented by: Acetaminophen (Acetaminophen 325 Mg Tab) 650 mg PO Q8H [facility] Last Admin: 06/16/21 02:16 Dose: Not Given Documented by: Carbidopa/Levodopa (Carbidopa/Levodopa 25-100 Mg Tab) 1 tab PO QID [facility] Last Admin: 06/10/21 16:54 Dose: 1 tab Documented by: Dexamethasone (Dexamethasone 4 Mg/Ml 5 Ml Mdv) 6 mg IV ONETIME ONE Stop: 06/10/21 00:53 Last Admin: 06/10/21 01:31 Dose: 6 mg Documented by: Dexamethasone (Dexamethasone 4 Mg Tab) 6 mg PO DAILY [facility] Stop: 06/18/21 09:01 Last Admin: 06/12/21 08:55 Dose: 6 mg Documented by: Enoxaparin Sodium (Enoxaparin 40 Mg/0.4 Ml Syringe) 40 mg SUBCUT DAILY [facility] Last Admin: 06/14/21 10:24 Dose: 40 mg Documented by: Enoxaparin Sodium (Enoxaparin 100 Mg/1 Ml Syringe) 100 mg SUBCUT Q12H [facility] Last Admin: 06/15/21 22:00 Dose: 100 mg Documented by: Glimepiride (Glimepiride 2 Mg Tab) 4 mg PO DAILY [facility] Last Admin: 06/10/21 09:51 Dose: 4 mg Documented by: Glimepiride (Glimepiride 2 Mg Tab) 2 mg PO WITHBREAKFAST [facility] Last Admin: 06/11/21 06:05 Dose: 2 mg Documented by: Sodium Chloride (Normal Saline) 1,000 mls @ 250 mls/hr IV ONETIME ONE Stop: 06/10/21 01:14 Last Infusion: 06/09/21 21:41 Dose: 250 mls/hr Documented by: Sodium Chloride (Normal Saline) Confirm Administered Dose 1,000 mls @ as directed .ROUTE .STK-MED ONE Stop: 06/09/21 21:19 Last Admin: 06/10/21 01:11 Dose: Not Given Documented by: Remdesivir 200 mg/ Sodium (Chloride) 250 mls @ 250 mls/hr IV ONETIME ONE Stop: 06/10/21 00:53 Last Admin: 06/10/21 01:47 Dose: 250 mls/hr Documented by: Remdesivir 100 mg/ Sodium (Chloride) 100 mls @ 100 mls/hr IV Q24H [facility] Stop: 06/13/21 21:59 Last Admin: 06/13/21 21:19 Dose: 100 mls/hr Documented by: Ceftriaxone Sodium 1 gm/ (Sodium Chloride) 100 mls @ 200 mls/hr IV Q24H [facility] Last Admin: 06/11/21 09:01 Dose: 200 mls/hr Documented by: Ceftriaxone Sodium 2 gm/ (Sodium Chloride) 100 mls @ 200 mls/hr IV Q24H [facility] Stop: 06/16/21 09:29 Last Admin: 06/15/21 09:19 Dose: 200 mls/hr Documented by: Azithromycin 500 mg/ Sodium (Chloride) 250 mls @ 250 mls/hr IV Q24H [facility] Stop: 06/14/21 08:59 Last Admin: 06/14/21 08:49 Dose: 250 mls/hr Documented by: Sodium Chloride (Normal Saline) 100 mls @ 75 mls/hr IV ASDIRECTED [facility] Stop: 06/13/21 13:00 Last Admin: 06/13/21 09:52 Dose: 75 mls/hr Documented by: Lactated Ringer's (Ringers, Lactated) Confirm Administered Dose 1,000 mls @ as directed .ROUTE .STK-MED ONE Stop: 06/16/21 06:44 Last Admin: 06/16/21 08:07 Dose: Not Given Documented by: Piperacillin Sod/Tazobactam (Sod 4.5 gm/ Sodium Chloride) 100 mls @ 200 mls/hr IV ONETIME ONE Stop: 06/16/21 08:31 Last Admin: 06/16/21 09:13 Dose: 200 mls/hr Documented by: Insulin Glargine (Insulin Glarg,Human.Rec.Analog 100 Unit/Ml) 24 unit SUBCUT BEDTIME [facility] Insulin Glargine (Insulin Glargine,Hum.Rec.Anlog 100 Unit/Ml 3 Ml Pen) 24 unit SUBCUT BEDTIME [facility] Last Admin: 06/10/21 21:05 Dose: 24 units Documented by: Insulin Glargine (Insulin Glargine,Hum.Rec.Anlog 100 Unit/Ml 3 Ml Pen) 28 unit SUBCUT BEDTIME [facility] Last Admin: 06/11/21 21:21 Dose: 28 units Documented by: Insulin Human Isoph/Insulin Regular (Insulin Nph/Insulin Regular,Human 70-30 100 Units/Ml 10 Ml Vial) 0 units SUBCUT BIDAC [facility]; Protocol Last Admin: 06/10/21 02:36 Dose: Not Given Documented by: Insulin Human Lispro (Insulin Lispro 100 Unit/Ml 3 Ml Kwikpen) 0 unit SUBCUT QIDACANDBED [facility]; Protocol Last Admin: 06/10/21 12:15 Dose: Not Given Documented by: Insulin Human Regular (Insulin Regular, Human 100 Units/Ml 3 Ml Vial) 0 unit SUBCUT TIDPC [facility]; Protocol Last Admin: 06/12/21 09:12 Dose: 6 unit Documented by: Iopamidol (Iopamidol 755 Mg/Ml 100 Ml Bottle) 100 ml IVPUSH ONETIME ONE Stop: 06/09/21 23:54 Last Admin: 06/10/21 00:24 Dose: 100 ml Documented by: Iopamidol (Iopamidol 755 Mg/Ml 100 Ml Bottle) 100 ml IVPUSH ONETIME ONE Stop: 06/13/21 08:56 Last Admin: 06/13/21 09:52 Dose: 100 ml Documented by: Magnesium Hydroxide (Magnesium Hydroxide 400 Mg/5 Ml Susp 30 Ml Cup) 30 ml PO ONETIME ONE Stop: 06/13/21 06:01 Last Admin: 06/13/21 06:18 Dose: 30 ml Documented by: Metformin HCl ([facility] 500 Mg Tab) [facility] Last Admin: 06/11/21 06:06 Dose: 1,000 mg Documented by: Morphine Sulfate (Morphine 2 Mg/Ml Syringe) 2 mg IVPUSH Q2H PRN PRN Reason: Pain (severe 7-10) Stop: 06/11/21 07:46 Non-Formulary Medication (Tresiba) 24 units SQ ONETIME ONE Stop: 06/10/21 03:46 Last Admin: 06/10/21 03:45 Dose: 24 units Documented by: Carbidopa/Levodopa 25-250 Tab Own Med 1 tab PO 0600,1100,1500,1900,2300 [facility] Last Admin: 06/11/21 05:29 Dose: 1 tab Documented by: Non-Formulary Medication (Sitagliptin Phos/Metformin Hcl [Janumet 50-1,000 Mg]) 1 tab PO BID [facility] Non-Formulary Medication (Non-Formulary Medication 1 Each) 1 each PO BID [facility] Pantoprazole Sodium (Pantoprazole 40 Mg Vial) 80 mg IVPUSH BOLUS ONE Stop: 06/16/21 07:05 Last Admin: 06/16/21 08:03 Dose: 80 mg Documented by: Sodium Chloride (Sodium Chloride 0.9% 10 Ml Syringe) 10 ml FLUSH ONETIME PRN PRN Reason: IV FLUSH Stop: 06/13/21 13:00 Trospium (Trospium 20 Mg Tab) 10 mg PO BID [facility] Last Admin: 06/10/21 21:03 Dose: 10 mg Documented by: - Exam Quality Assessment: Supplemental Oxygen (Switch to CPAP) General: Lethargic Lungs: Crackles (Minimal bibasilar crackles). No: Normal Respiratory Effort (Increased respiratory rate) Cardiovascular: Regular Rate, Regular Rhythm Extremities: Normal Inspection, Normal Capillary Refill Skin: Warm, Dry, Intact Psy/Mental Status: Alert, Normal Affect, Normal Mood - Patient Data Lab Results Last 24 hrs: Laboratory Results - last 24 hr 06/15/21 06/15/21 06/15/21 Range/Units 11:38 17:05 22:11 WBC (4.23-9.07) K/mm3 RBC (4.63-6.08) M/mm3 Hgb (13.7-17.5) gm/dl Hct (40.1-51.0) % MCV (79.0-92.2) fl MCH (25.7-32.2) pg MCHC (32.2-35.5) g/dl RDW Std Deviation (35.1-43.9) fL Plt Count (163-337) K/mm3 MPV (9.4-12.3) fl Neut % (Auto) (34.0-67.9) % Lymph % (Auto) (21.8-53.1) % Harris % (Auto) (5.3-12.2) % Eos % (Auto) (0.8-7.0) Baso % (Auto) (0.1-1.2) % Neut # (Auto) (1.78-5.38) K/mm3 Lymph # (Auto) (1.32-3.57) K/mm3 Harris # (Auto) (0.30-0.82) K/mm3 Eos # (Auto) (0.04-0.54) K/mm3 Baso # (Auto) (0.01-0.08) K/mm3 Manual Slide Review Sodium (136-145) mEq/L Potassium (3.5-5.1) mEq/L Chloride (98-107) mEq/L Carbon Dioxide (21-32) mEq/L Anion Gap (5-15) BUN (7-18) mg/dL Creatinine (0.7-1.3) mg/dL Est Cr Clr Drug Dosing mL/min Estimated GFR (MDRD) (>60) mL/min BUN/Creatinine Ratio (14-18) Glucose (70-99) mg/dL POC Glucose 221 H 132 H 134 H (70-99) mg/dL Calcium (8.5-10.1) mg/dL Phosphorus (2.6-4.7) mg/dL Magnesium (1.8-2.4) mg/dL Total Bilirubin (0.2-1.0) mg/dL AST (15-37) U/L ALT (16-63) U/L Alkaline Phosphatase (46-116) U/L C-Reactive Protein (<1.0) mg/dL Total Protein (6.4-8.2) g/dl Albumin (3.4-5.0) g/dl Globulin gm/dL Albumin/Globulin Ratio (1-2) 06/16/21 06/16/21 06/16/21 Range/Units 06:10 07:00 07:00 WBC 11.45 H (4.23-9.07) K/mm3 RBC 5.26 (4.63-6.08) M/mm3 Hgb 16.2 D (13.7-17.5) gm/dl Hct 49.9 (40.1-51.0) % MCV 94.9 H (79.0-92.2) fl MCH 30.8 (25.7-32.2) pg MCHC 32.5 (32.2-35.5) g/dl RDW Std Deviation 48.5 H (35.1-43.9) fL Plt Count 188 (163-337) K/mm3 MPV 10.1 (9.4-12.3) fl Neut % (Auto) 90.6 H (34.0-67.9) % Lymph % (Auto) 5.2 L (21.8-53.1) % Harris % (Auto) 3.4 L (5.3-12.2) % Eos % (Auto) 0.3 L (0.8-7.0) Baso % (Auto) 0.0 L (0.1-1.2) % Neut # (Auto) 10.37 H (1.78-5.38) K/mm3 Lymph # (Auto) 0.60 L (1.32-3.57) K/mm3 Harris # (Auto) 0.39 (0.30-0.82) K/mm3 Eos # (Auto) 0.03 L (0.04-0.54) K/mm3 Baso # (Auto) 0.00 L (0.01-0.08) K/mm3 Manual Slide Review Normal smear Sodium 144 (136-145) mEq/L Potassium 3.6 (3.5-5.1) mEq/L Chloride 108 H (98-107) mEq/L Carbon Dioxide 23 (21-32) mEq/L Anion Gap 16.6 H (5-15) BUN 26 H (7-18) mg/dL Creatinine 1.7 H (0.7-1.3) mg/dL Est Cr Clr Drug Dosing 45.67 mL/min Estimated GFR (MDRD) 40 (>60) mL/min BUN/Creatinine Ratio 15.3 (14-18) Glucose 83 (70-99) mg/dL POC Glucose 96 (70-99) mg/dL Calcium 8.1 L (8.5-10.1) mg/dL Phosphorus 4.4 (2.6-4.7) mg/dL Magnesium 2.1 (1.8-2.4) mg/dL Total Bilirubin 0.5 (0.2-1.0) mg/dL AST 20 (15-37) U/L ALT 14 L (16-63) U/L Alkaline Phosphatase 98 (46-116) U/L C-Reactive Protein 1.9 H* (<1.0) mg/dL Total Protein 6.5 (6.4-8.2) g/dl Albumin 2.8 L (3.4-5.0) g/dl Globulin 3.7 gm/dL Albumin/Globulin Ratio 0.8 L (1-2) 06/16/21 Range/Units 11:10 WBC (4.23-9.07) K/mm3 RBC (4.63-6.08) M/mm3 Hgb (13.7-17.5) gm/dl Hct (40.1-51.0) % MCV (79.0-92.2) fl MCH (25.7-32.2) pg MCHC (32.2-35.5) g/dl RDW Std Deviation (35.1-43.9) fL Plt Count (163-337) K/mm3 MPV (9.4-12.3) fl Neut % (Auto) (34.0-67.9) % Lymph % (Auto) (21.8-53.1) % Harris % (Auto) (5.3-12.2) % Eos % (Auto) (0.8-7.0) Baso % (Auto) (0.1-1.2) % Neut # (Auto) (1.78-5.38) K/mm3 Lymph # (Auto) (1.32-3.57) K/mm3 Harris # (Auto) (0.30-0.82) K/mm3 Eos # (Auto) (0.04-0.54) K/mm3 Baso # (Auto) (0.01-0.08) K/mm3 Manual Slide Review Sodium (136-145) mEq/L Potassium (3.5-5.1) mEq/L Chloride (98-107) mEq/L Carbon Dioxide (21-32) mEq/L Anion Gap (5-15) BUN (7-18) mg/dL Creatinine (0.7-1.3) mg/dL Est Cr Clr Drug Dosing mL/min Estimated GFR (MDRD) (>60) mL/min BUN/Creatinine Ratio (14-18) Glucose (70-99) mg/dL POC Glucose 87 (70-99) mg/dL Calcium (8.5-10.1) mg/dL Phosphorus (2.6-4.7) mg/dL Magnesium (1.8-2.4) mg/dL Total Bilirubin (0.2-1.0) mg/dL AST (15-37) U/L ALT (16-63) U/L Alkaline Phosphatase (46-116) U/L C-Reactive Protein (<1.0) mg/dL Total Protein (6.4-8.2) g/dl Albumin (3.4-5.0) g/dl Globulin gm/dL Albumin/Globulin Ratio (1-2) Result Diagrams: 06/16/21 07:00 06/16/21 07:00 Manolo Results Last 24 hrs: Microbiology 06/09/21 21:21 Blood Culture - Final Blood - Venous - Lab Draw 06/09/21 21:10 Blood Culture - Final Blood - Venous Sepsis Event Note - Evaluation Sepsis Screening Result: Sepsis Risk - Focused Exam Vital Signs: Vital Signs Temp Temp Pulse Pulse Resp BP BP 06/16/21 11:00 27 H 06/16/21 10:01 26 H 123/56 L 06/16/21 10:00 23 H 06/16/21 09:27 24 H 138/67 06/16/21 09:26 35 H 06/16/21 09:00 99.6 F 34 H 06/16/21 08:59 06/16/21 08:51 30 H 06/16/21 08:44 06/16/21 07:03 99.3 F 108 H 26 H 141/67 H 06/16/21 05:53 98.2 F 36 L 26 H 127/72 06/16/21 03:00 98.9 F 89 24 H 132/74 Pulse Ox Pulse Ox Pulse Ox 06/16/21 11:00 91 L 06/16/21 10:01 90 L 06/16/21 10:00 90 L 06/16/21 09:27 93 L 06/16/21 09:26 93 L 06/16/21 09:00 91 L 06/16/21 08:59 90 L 06/16/21 08:51 89 L 06/16/21 08:44 91 L 06/16/21 07:03 91 L 06/16/21 05:53 80 L 06/16/21 03:00 90 L - Problem List & Annotations (1) Acute respiratory failure due to COVID-19 SNOMED Code(s): 945537692 Code(s): U07.1 - COVID-19; J96.00 - ACUTE RESPIRATORY FAILURE, UNSP W HYPOXIA OR HYPERCAPNIA Status: Acute Priority: High Current Visit: Yes (2) Elevated C-reactive protein (CRP) SNOMED Code(s): 403111856695477 Code(s): R79.82 - ELEVATED C-REACTIVE PROTEIN (CRP) Status: Acute Pr iority: High Current Visit: Yes (3) Elevated d-dimer SNOMED Code(s): 726260588 Code(s): R79.89 - OTHER SPECIFIED ABNORMAL FINDINGS OF BLOOD CHEMISTRY Status: Acute Priority: High Current Visit: Yes (4) Pneumonia due to COVID-19 virus SNOMED Code(s): 364355202887135114 Code(s): U07.1 - COVID-19; J12.82 - PNEUMONIA DUE TO CORONAVIRUS DISEASE 2019 Status: Acute Priority: High Current Visit: Yes (5) Diabetes mellitus type 2 in nonobese SNOMED Code(s): 579545370 Code(s): E11.9 - TYPE 2 DIABETES MELLITUS WITHOUT COMPLICATIONS Status: Chronic Priority: High Current Visit: Yes (6) Parkinson's disease dementia SNOMED Code(s): 561379062048179 Code(s): G20 - PARKINSON'S DISEASE; F02.80 - DEMENTIA IN OTH DISEASES CLASSD ELSWHR W/O BEHAVRL DISTURB Status: Chronic Priority: High Current Visit: Yes Qualifiers: Dementia behavioral disturbance: without behavioral disturbance Qualified Code(s): G20 - Parkinson's disease; F02.80 - Dementia in other diseases classified elsewhere without behavioral disturbance - Problem List Review Problem List Initiated/Reviewed/Updated: Yes - My Orders Last 24 Hours: My Active Orders 06/16/21 06:45 Lactated Ringers [Ringers, Lactated] 1,000 ml IV ASDIRECTED 06/16/21 08:33 Patient Status [ADT] Routine 06/16/21 09:30 Shields Catheter Insertion [Insert Urinary Catheter] [OM.PC] Q24H 06/16/21 10:00 Intake and Output Strict [RC] Q2HR 06/16/21 10:06 Urinary Catheter Assessment [RC] Q4HR 06/16/21 12:00 HEMOGLOBIN/HEMATOCRIT,HH [HEME] Routine 06/16/21 16:00 Piperacillin/Tazobactam [Piperacil-Tazobact] 4.5 gm Sodium Chloride 0.9% [Normal Saline AdvBag] 100 ml IV Q8H - Plan Plan:: The patient is a 71-year-old gentleman who has been admitted to acute hospitalization secondary to pneumonia associated with COVID-19. The patient has been started on dexamethasone 6 mg p.o. daily. The patient also has been started on remdesivir 100 mg IV daily as he was given 200 mg IV in the emergency department. The patient will be kept on carb constant diet and Accu-Cheks before meals and at bedtime. He is on insulin sliding scale low-dose. The patient has a history of what appears to be Parkinson's dementia and he is also on carbidopa/levodopa and this has been continued as a part of his home medications. The patient's DVT prophylaxis will be the use of Lovenox 40 mg subcutaneous daily. Oxygen will be titrated to keep his saturations around 92%. Repeat laboratory studies have been ordered. PT OT also has been ordered for the patient. Because of the patient's comorbidities and his COVID-19 pneumonia his overall prognosis is poor. 06/11/2021 71-year-old male with a history of Parkinson's disease admitted for treatment of his COVID-19 pneumonia. Patient was noted to be very confused on admission and this has improved greatly. He is alert to person place and time. He continues on dexamethasone and remdesivir. Labs today show a WBC of 7.26. Hemoglobin 12.7. Platelet 178,000. Patient has been on Rocephin and there is no clear indication for this. We will therefore discontinue it. Procalcitonin is pending. Blood cultures are negative. D-dimer is elevated at 2.61 which is an improvement over yesterday. Patient CTA was negative however we will also check lower extremities for DVT. No obvious signs of DVT at this point. Sodium 138. Potassium 4.5. Chloride 103. Carbon dioxide 26. Anion gap 13.5. BUN is 31. Creatinine 1.0. GFR is improved to greater than 60. Glucose has been ranging from 345-237. We will discontinue patient's Metformin but we will continue alogliptin. We will increase patient's long-acting insulin to 28 units at bedtime as he has been receiving significant amounts of sliding scale insulin. Magnesium is 2.2. Bilirubin 0.4. AST is 32, ALT 9, alkaline phosphatase 40. CRP is 12.0. Protein is 5.9. Albumin is 2.3. There is some confusion with when the patient actually developed symptoms whether or not his symptoms have been improving or worsening. Because of this we will keep the patient on quarantine for a total of 10 days unless he requires high flow. This would mean he may come off of isolation at 06/15/2021 at 23:59. Discussed plan of care with patient. He reports he would like us to discuss this with his daughters. There is some [id number] on whether or not to continue remdesivir and ultimately decision is made to continue this as patient's liver enzymes and renal function look good. Family requests zinc and vitamin C be started and this seems reasonable. They would like vitamin D be started and we will check a level of this prior to prescribing. All questions answered. Unknown length of stay due to severity of COVID-19 illness. 06/12/2021 This is a 71-year-old male with a history of Parkinson's disease who is admitted to a floor for altered mental status and COVID-19 pneumonia. His mental status remains greatly improved with baseline confusion. He is on 6 to 7 L via nasal cannula with saturations in the upper 80s to low 90s. His procalcitonin from yesterday returned quite elevated at 2.04. Because of this we will resume Rocephin 2 g and start 3 days worth of azithromycin. We will check a UA on the patient as well. Labs today show a WBC of 5.09. Hemoglobin 12.5. Platelet of 202,000. Neutrophils are elevated 85.1%. Sodium 139. Potassium 4.4. Chloride 102. Carbon dioxide 31. Anion gap 10.4. BUN is 31. Creatinine 1.1. GFR is greater than 60. Glucose has remained elevated at 2 48-2 82 we will continue to monitor this and adjust insulin as needed. Magnesium is 2.2. Bilirubin 0.5. AST is 27, ALT 18, alkaline phosphatase 39. CRP is down to 5.6. Albumin is 2.2. We will continue remdesivir and dexamethasone. Patient's vitamin D level was within normal limits at 81.0 we will not start vitamin D supplementation. Patient is reporting significant joint pain and we will order as needed Aspercreme and scheduled Tylenol. Unknown length of stay due to severity of COVID-19 illness. 06/13/2021 71-year-old male with a history of Parkinson's disease was admitted to the floor for treatment of his COVID-19 pneumonia. Unfortunately patient's oxygen saturations have continued to drop he is now requiring high flow oxygen 55 L with an FiO2 of 85%. Overall he states he feels worse today than he did yesterday. Blood cultures remain negative. Labs show WBC of 4.54. Hemoglobin is 13.2. Platelets 200,000. Neutrophils are elevated 84.8%. D-dimer increased today to 6.74. Because of this and his worsening saturations patient was sent for CTA, which was negative although there was noted suboptimal opacification of the main or segmental branches. It is noted that smaller subsegmental pulmonary emboli could be missed. Diffuse parenchymal densities within both sides of the chest are noted however there is slight improvement also noted. Other chronic findings are noted. Sodium is 140. Potassium 4.6. Chloride 102. Carbon dioxide 32. BUN is 24. Creatinine 1.0. GFR is greater than 60. Blood glucose readings have improved from 1 62-2 25. Magnesium is 1.9. Bilirubin 0.5. AST is 28, ALT 7, alkaline phosphatase 41. CRP is 3.0. Protein is 6.2. Albumin is 2.2. UA was obtained yesterday and was negative however 1+ protein, 2+ glucose, and trace ketones are noted. At the patient's request of his daughter Clemencia was contacted at [phone] to discuss progress and possibly starting baricitinib. They will get back to us regarding this. We will consider moving patient to ICU should a bed become available given his rapidly deteriorating status. Unknown length of stay due to severity of Covid symptoms. We will continue remdesivir and increase dexamethasone to 6 mg twice daily starting today. Patient also continues on 3 days worth of azithromycin and 5 days worth of Rocephin. We will recheck a procalcitonin given his prior elevated resolved. Length of stay greater than 96 hours due to need for continued COVID-19 treatment. 06/14/2021 71-year-old male with history of Parkinson's disease admitted to the floor for COVID-19. Saturations have improved today and he remains on 50 L high flow with an FiO2 of 65%. Blood cultures remain negative. Vital signs otherwise been stable. He completed azithromycin and continues on Rocephin. He completed his remdesivir treatment. As the patient was having rapidly worsening oxygen saturations baricitinib was recommended yesterday and after discussion with the patient and amongst family members they ultimately agreed in the evening hours. WBC is 4.92. Hemoglobin 14.1. Platelet 194,000. Neutrophils are 88.4%. Blood smear is normal. Sodium is 139. Potassium 4.5. Chloride 100. Carbon oxide 32. Anion gap 11.5. BUN is 22. Creatinine 0.9. GFR greater than 60. Glucose is 97-1 58. Magnesium 2.1. Bilirubin 0.6. AST is 28, ALT is 15, alkaline phosphatase 46. CRP is 4.6. Albumin is 2.4. We will continue current treatment plan and attempt to wean off oxygen as the patient tolerates. Unknown length of stay. Because of his significant worsening in oxygen saturations over the last 12-24 hours I have recommended baricitinib. I spoke with Yehuda and his daughter Elena via phone to provide information about baricitinib. I offered the "fax sheet for patients and parents/caregivers, for baricitinib" to read and review. I stated that therapy has been approved by an emergency use authorization process and has not fully been FDA reviewed or approved. I shared potential risks from the therapy including increased risk for serious infections, anaphylaxis, and reaction to medication. I discussed there are other potential treatment options that are currently not FDA approved to treat COVID-19. Offered opportunity to ask questions and all questions were answered. Yehuda and Elena voiced understanding and after some discussion agreed to proceed with treatment. 06/15/2021 This is a 71-year-old male with a history of Parkinson's disease who was admitted to the floor for treatment of COVID-19 pneumonia. His saturations have been improving with therapy and he is currently on 40 L with an FiO2 of 50%. He continues on Rocephin with his last dose tomorrow and he completed azithromycin and remdesivir. He also continues on dexamethasone 6 mg twice daily and baricitinib. Today patient's D-dimer was noted to be 20.38. Patient has had 2 CTAs with PE protocol and has had his legs scanned for DVT. Given his improving oxygen saturations and lack of leg pain or other signs of DVT, combined with his prior imaging we will forego scanning and begin 1 mg/kg twice daily Lovenox treatment. We will continue to monitor D-dimers as ordered. Otherwise patient states that he is feeling better. His lung sounds are improving with better aeration of the lower amado. He has not been sleeping well at night and we will start him on scheduled melatonin. We will also start the let me sleep protocol. Given his continued stability we will decrease vital signs to 4 times daily. Labs today show a leukocytosis of 9.30. Hemoglobin is 14.4. Platelet 203,000. Smear is normal. D-dimer as mentioned prior was 20.38. Sodium 139. Potassium 4.4. Chloride 102. Carbon dioxide 28. Anion gap 13.4. BUN is 29. Creatinine 1.0. GFR greater than 60. Glucose has been between 147 and 244. Calcium is 8.7. Magnesium 2.1. Total bilirubin 0.6. AST is 27, ALT 14, alkaline phosphatase 46. CRP is 2.7. Given the severity of his symptoms he will require 20 days of isolation/quarantine. Unknown length of stay due to continued severity of COVID-19 pneumonia. Goal saturations will be 2 L or less via nasal cannula prior to discharge. Patient's daughter Clemencia updated on pradeep ent's progress and plan of care at request of patient. 06/16/2021 71-year-old male with history of Parkinson's disease being treated for COVID-19 pneumonia. He had a large coffee-ground emesis this morning. Yesterday we increased his Lovenox 200 mg every 12 hours per full dose protocol for anticoagulation. Patient's D-dimer had increased to 20, but CTA of the chest done on June 13 was negative for PE but slightly suboptimal opacification of the pulmonary arteries. Because the smaller subsegmental pulmonary emboli could be missed and he had a continuing increase in his D-dimer we felt that prudent to treat him with full anticoagulation. Also of note venous Doppler studies were negative for DVT. There was concern that patient could have aspirated when he had the large coffee-ground emesis. Chest x-ray was performed which showed improvement in the parenchymal densities within both sides of the chest. He was switched over to Zosyn to cover for aspiration pneumonia. He had an increase oxygen requirement and high flow requirement precipitating the increase coverage. Also, patient is much more lethargic and answering and only short sentences. Family was updated. Of note his hemoglobin actually increased and he appears to be hemoconcentrated. He was on 35 L of high flow overnight until he had this episode and now he is on CPAP 9 cm of water pressure with 15 L bled in. He has been given a bolus of 250 mL of LR and started on a rate of 150 mL to correct his apparent hypovolemia. Patient has mild tachycardia with the increase of his hemoglobin from 14.4-16.2. White count did also increased from 9.3-11.45. Platelet count is stable at 188. Creatinine increased from 1.0-1.7 making his estimated GFR 40. BUN is now 26. CRP has decreased from 2.7-1.9. He has a slight anion gap of 16.6. We will repeat his hemoglobin at noon. Start on Protonix 80 mg IV bolus then 40 mg twice daily. We will stop his Lovenox and continue SCDs. He is much more lethargic today, but this could be due to stress so we will continue to monitor his mental status. He was transferred to the ICU.
[2021-06-16] MEDS: Lactated Ringers 1,000 ML IV SCH ×2 (12:11→22:47)
[2021-06-16] MEDS: Piperacillin/Tazobactam 4.5 GM in Sodium Chloride 0.9% 100 ML IV SCH (15:06)
[2021-06-16] MEDS: oxyCODONE 5 MG Tab PO PRN (17:59)
[2021-06-16] MEDS: Tamsulosin 0.4 MG Cap.ER PO SCH (21:04)
[2021-06-16] MEDS: Melatonin 3 MG Tab PO SCH (21:04)
[2021-06-16] MEDS: Insulin Glargine,Hum.Rec.Anlog 100 UNIT/ML 3 ML Pen SUBCUT SCH (21:06)
[2021-06-17] MEDS: Piperacillin/Tazobactam 4.5 GM in Sodium Chloride 0.9% 100 ML IV SCH ×4 (00:12→23:41)
[2021-06-17] MEDS: LEVODOPA PO SCH ×5 (06:05→23:41)
[2021-06-17] MEDS: CARBIDOPA PO SCH ×5 (06:05→23:41)
[2021-06-17] MEDS: Levothyroxine 50 MCG Tab PO SCH (06:05)
[2021-06-17] MEDS: Acetaminophen 325 MG Tab PO SCH ×3 (06:05→21:33)
[2021-06-17] MEDS: Insulin Regular, Human 100 Units/ML 3 ML Vial SUBCUT SCH ×4 (06:12→21:34)
[2021-06-17] MEDS: Albuterol/Ipratropium 3.0-0.5 MG/3 ML Neb Soln NEB PRN ×2 (07:37→14:34)
[2021-06-17] MEDS: Dexamethasone 4 MG Tab PO SCH ×2 (07:59→21:34)
[2021-06-17] MEDS: Trospium 20 MG Tab PO SCH ×2 (08:00→21:34)
[2021-06-17] MEDS: Finasteride 5 MG Tab PO SCH (08:00)
[2021-06-17] MEDS: Ascorbic Acid 500 MG Tab PO SCH (08:00)
[2021-06-17] MEDS: Zinc Sulfate 220 MG Cap PO SCH (08:00)
--- NOTE | 2021-06-17 15:51 | PCM.PN ---
- General Info Date of Service: 06/17/21 Admission Dx/Problem (Free Text): Admission Diagnosis/Problem Admission Diagnosis/Problem acute respiratory failure due to COVID-19 pneumonia. Subjective Update: Patient had a good night. He is more awake and alert this morning and oxygen saturations have improved significantly. Functional Status: Reports: Pain Controlled - Review of Systems General: Reports: No Symptoms HEENT: Reports: No Symptoms Pulmonary: Reports: Cough Cardiovascular: Reports: No Symptoms Gastrointestinal: Reports: No Symptoms Musculoskeletal: Reports: No Symptoms - Patient Data Vitals - Most Recent: Last Vital Signs Temp 98.8 F 06/17/21 11:32 Pulse 87 06/17/21 11:32 Resp 22 H 06/17/21 11:32 BP 115/59 L 06/17/21 11:32 Pulse Ox 91 L 06/17/21 14:46 Weight - Most Recent: 232 lb I&O - Last 24 Hours: Intake & Output 06/17/21 06/17/21 06/17/21 06:59 14:59 22:59 Intake Total 340 Output Total 120 Balance 220 Lab Results Last 24 Hours: Laboratory Results - last 24 hr 06/16/21 06/16/21 06/17/21 Range/Units 17:52 21:01 05:57 WBC 6.37 (4.23-9.07) K/mm3 RBC 4.21 L (4.63-6.08) M/mm3 Hgb 12.8 L D (13.7-17.5) gm/dl Hct 40.9 (40.1-51.0) % MCV 97.1 H (79.0-92.2) fl MCH 30.4 (25.7-32.2) pg MCHC 31.3 L (32.2-35.5) g/dl RDW Std Deviation 49.5 H (35.1-43.9) fL Plt Count 134 L (163-337) K/mm3 MPV 9.8 (9.4-12.3) fl Neut % (Auto) 92.1 H (34.0-67.9) % Lymph % (Auto) 5.2 L (21.8-53.1) % [place] % (Auto) 1.7 L (5.3-12.2) % Eos % (Auto) 0.2 L (0.8-7.0) Baso % (Auto) 0.0 L (0.1-1.2) % Neut # (Auto) 5.87 H (1.78-5.38) K/mm3 Lymph # (Auto) 0.33 L (1.32-3.57) K/mm3 [place] # (Auto) 0.11 L (0.30-0.82) K/mm3 Eos # (Auto) 0.01 L (0.04-0.54) K/mm3 Baso # (Auto) 0.00 L (0.01-0.08) K/mm3 Manual Slide Review Normal smear Sodium (136-145) mEq/L Potassium (3.5-5.1) mEq/L Chloride (98-107) mEq/L Carbon Dioxide (21-32) mEq/L Anion Gap (5-15) BUN (7-18) mg/dL Creatinine (0.7-1.3) mg/dL Est Cr Clr Drug Dosing mL/min Estimated GFR (MDRD) (>60) mL/min BUN/Creatinine Ratio (14-18) Glucose (70-99) mg/dL POC Glucose 87 120 H (70-99) mg/dL Calcium (8.5-10.1) mg/dL Magnesium (1.8-2.4) mg/dL Total Bilirubin (0.2-1.0) mg/dL AST (15-37) U/L ALT (16-63) U/L Alkaline Phosphatase (46-116) U/L C-Reactive Protein (<1.0) mg/dL Total Protein (6.4-8.2) g/dl Albumin (3.4-5.0) g/dl Globulin gm/dL Albumin/Globulin Ratio (1-2) 06/17/21 06/17/21 06/17/21 Range/Units 05:57 05:57 11:04 WBC (4.23-9.07) K/mm3 RBC (4.63-6.08) M/mm3 Hgb (13.7-17.5) gm/dl Hct (40.1-51.0) % MCV (79.0-92.2) fl MCH (25.7-32.2) pg MCHC (32.2-35.5) g/dl RDW Std Deviation (35.1-43.9) fL Plt Count (163-337) K/mm3 MPV (9.4-12.3) fl Neut % (Auto) (34.0-67.9) % Lymph % (Auto) (21.8-53.1) % [place] % (Auto) (5.3-12.2) % Eos % (Auto) (0.8-7.0) Baso % (Auto) (0.1-1.2) % Neut # (Auto) (1.78-5.38) K/mm3 Lymph # (Auto) (1.32-3.57) K/mm3 [place] # (Auto) (0.30-0.82) K/mm3 Eos # (Auto) (0.04-0.54) K/mm3 Baso # (Auto) (0.01-0.08) K/mm3 Manual Slide Review Sodium 139 (136-145) mEq/L Potassium 4.8 (3.5-5.1) mEq/L Chloride 103 (98-107) mEq/L Carbon Dioxide 29 (21-32) mEq/L Anion Gap 11.8 (5-15) BUN 29 H (7-18) mg/dL Creatinine 0.9 (0.7-1.3) mg/dL Est Cr Clr Drug Dosing 86.26 mL/min Estimated GFR (MDRD) > 60 (>60) mL/min BUN/Creatinine Ratio 32.2 H (14-18) Glucose 166 H (70-99) mg/dL POC Glucose 163 H 249 H (70-99) mg/dL Calcium 7.9 L (8.5-10.1) mg/dL Magnesium 2.1 (1.8-2.4) mg/dL Total Bilirubin 0.9 (0.2-1.0) mg/dL AST 27 (15-37) U/L ALT 9 L (16-63) U/L Alkaline Phosphatase 41 L (46-116) U/L C-Reactive Protein 13.1 H* (<1.0) mg/dL Total Protein 5.4 L (6.4-8.2) g/dl Albumin 1.9 L (3.4-5.0) g/dl Globulin 3.5 gm/dL Albumin/Globulin Ratio 0.5 L (1-2) Med Orders - Current: Current Medications Acetaminophen (Acetaminophen 325 Mg Tab) 650 mg PO Q8H [facility] Last Admin: 06/17/21 06:05 Dose: 650 mg Documented by: Al Hydroxide/Mg Hydroxide (Aluminum Hydroxide/Magnesium Hydroxide/Simethicone S retirement 30 Ml Cup) 30 ml PO Q4H PRN PRN Reason: Heartburn Last Admin: 06/14/21 21:37 Dose: 30 ml Documented by: Albuterol (Albuterol 6.7 Gm Inhaler) 0 gm INH QID PRN PRN Reason: SOB/Wheezing Albuterol/Ipratropium (Albuterol/Ipratropium 3.0-0.5 Mg/3 Ml Neb Soln) 3 ml NEB Q4H PRN PRN Reason: Shortness Of Breath/wheezing Last Admin: 06/17/21 14:34 Dose: 3 ml Documented by: Alogliptin Benzoate (Alogliptin 12.5 Mg Tab) 12.5 mg PO BIDMEALS [facility] Last Admin: 06/17/21 06:05 Dose: 12.5 mg Documented by: Ascorbic Acid (Ascorbic Acid 500 Mg Tab) 500 mg PO DAILY [facility] Last Admin: 06/17/21 08:00 Dose: 500 mg Documented by: Baricitinib (Baricitinib 2 Mg Tab) 4 mg PO DAILY [facility] Stop: 06/26/21 09:01 Last Admin: 06/17/21 08:00 Dose: 4 mg Documented by: Dexamethasone (Dexamethasone 4 Mg Tab) 6 mg PO BID [facility] Last Admin: 06/17/21 07:59 Dose: 6 mg Documented by: Docusate Sodium (Docusate Sodium 100 Mg Cap) 100 mg PO BID PRN PRN Reason: Constipation Last Admin: 06/14/21 12:07 Dose: 100 mg Documented by: Finasteride (Finasteride 5 Mg Tab) 5 mg PO DAILY [facility] Last Admin: 06/17/21 08:00 Dose: 5 mg Documented by: Guaifenesin/Phenylephrine HCl (Guaifenesin/Dextromethorphan 100-10 Mg/5 Ml Soln 5 Ml Cup) 10 ml PO Q6H PRN PRN Reason: Cough Piperacillin Sod/Tazobactam (Sod 4.5 gm/ Sodium Chloride) 100 mls @ 25 mls/hr IV Q8H [facility] Last Admin: 06/17/21 07:57 Dose: 25 mls/hr Documented by: Insulin Glargine (Insulin Glargine,Hum.Rec.Anlog 100 Unit/Ml 3 Ml Pen) 32 unit SUBCUT BEDTIME [facility] Last Admin: 06/16/21 21:06 Dose: 32 unit Documented by: Insulin Human Regular (Insulin Regular, Human 100 Units/Ml 3 Ml Vial) 0 unit SUBCUT QIDACANDBED [facility]; Protocol Last Admin: 06/17/21 11:12 Dose: 6 unit Documented by: Levothyroxine Sodium (Levothyroxine 50 Mcg Tab) 50 mcg PO ACBREAKFAST [facility] Last Admin: 06/17/21 06:05 Dose: 50 mcg Documented by: Melatonin (Melatonin 3 Mg Tab) 6 mg PO BEDTIME [facility] Last Admin: 06/16/21 21:04 Dose: 6 mg Documented by: Carbidopa/Levodopa 25-250 Tab Own Med 1 tab PO 0600,1100,1500,1900,2300 [facility] Last Admin: 06/17/21 10:50 Dose: 1 tab Documented by: Ondansetron HCl (Ondansetron 4 Mg Tab.Dis) 4 mg PO Q4H PRN PRN Reason: nausea, able to take PO Oxycodone HCl (Oxycodone 5 Mg Tab) 5 mg PO Q4H PRN PRN Reason: Pain (moderate 4-6) Last Admin: 06/16/21 17:59 Dose: 5 mg Documented by: Sodium Chloride (Sodium Chloride 0.9% 10 Ml Syringe) 10 ml FLUSH ASDIRECTED PRN PRN Reason: Keep Vein Open Last Admin: 06/10/21 00:24 Dose: 10 ml Documented by: Tamsulosin HCl (Tamsulosin 0.4 Mg Cap.Er) 0.4 mg PO BEDTIME [facility] Last Admin: 06/16/21 21:04 Dose: 0.4 mg Documented by: Temazepam (Temazepam 15 Mg Cap) 15 mg PO BEDTIME PRN PRN Reason: Sleep Last Admin: 06/13/21 21:18 Dose: 15 mg Documented by: Trolamine Salicylate (Trolamine Salicylate/Aloe Vera 10% Crm 85 Gm Tube) 1 gm TOP Q2H PRN PRN Reason: Pain (moderate 4-6) Last Admin: 06/13/21 09:30 Dose: 1 applic Documented by: Trospium (Trospium 20 Mg Tab) 20 mg PO BID [facility] Last Admin: 06/17/21 08:00 Dose: 20 mg Documented by: Zinc Sulfate (Zinc Sulfate 220 Mg Cap) 220 mg PO DAILY [facility] Last Admin: 06/17/21 08:00 Dose: 220 mg Documented by: Discontinued Medications Acetaminophen (Acetaminophen 325 Mg Tab) 975 mg PO NOW ONE Stop: 06/09/21 21:16 Last Admin: 06/09/21 21:41 Dose: 350 mg Documented by: Acetaminophen (Acetaminophen 650 Mg Supp) 650 mg RECTAL NOW ONE Stop: 06/09/21 21:52 Last Admin: 06/09/21 22:30 Dose: 650 mg Documented by: Acetaminophen (Acetaminophen 325 Mg Tab) 650 mg PO Q4H PRN PRN Reason: Pain (Mild 1-3)/fever Last Admin: 06/12/21 08:10 Dose: 650 mg Documented by: Acetaminophen (Acetaminophen 325 Mg Tab) 975 mg PO Q8HR [facility] Acetaminophen (Acetaminophen 325 Mg Tab) 650 mg PO Q8H [facility] Last Admin: 06/12/21 11:51 Dose: Not Given Documented by: Acetaminophen (Acetaminophen 325 Mg Tab) 650 mg PO Q8H [facility] Last Admin: 06/16/21 02:16 Dose: Not Given Documented by: Carbidopa/Levodopa (Carbidopa/Levodopa 25-100 Mg Tab) 1 tab PO QID [facility] Last Admin: 06/10/21 16:54 Dose: 1 tab Documented by: Dexamethasone (Dexamethasone 4 Mg/Ml 5 Ml Mdv) 6 mg IV ONETIME ONE Stop: 06/10/21 00:53 Last Admin: 06/10/21 01:31 Dose: 6 mg Documented by: Dexamethasone (Dexamethasone 4 Mg Tab) 6 mg PO DAILY [facility] Stop: 06/18/21 09:01 Last Admin: 06/12/21 08:55 Dose: 6 mg Documented by: Enoxaparin Sodium (Enoxaparin 40 Mg/0.4 Ml Syringe) 40 mg SUBCUT DAILY [facility] Last Admin: 06/14/21 10:24 Dose: 40 mg Documented by: Enoxaparin Sodium (Enoxaparin 100 Mg/1 Ml Syringe) 100 mg SUBCUT Q12H [facility] Last Admin: 06/15/21 22:00 Dose: 100 mg Documented by: Glimepiride (Glimepiride 2 Mg Tab) 4 mg PO DAILY [facility] Last Admin: 06/10/21 09:51 Dose: 4 mg Documented by: Glimepiride (Glimepiride 2 Mg Tab) 2 mg PO WITHBREAKFAST [facility] Last Admin: 06/11/21 06:05 Dose: 2 mg Documented by: Sodium Chloride (Normal Saline) 1,000 mls @ 250 mls/hr IV ONETIME ONE Stop: 06/10/21 01:14 Last Infusion: 06/09/21 21:41 Dose: 250 mls/hr Documented by: Sodium Chloride (Normal Saline) Confirm Administered Dose 1,000 mls @ as directed .ROUTE .STK-MED ONE Stop: 06/09/21 21:19 Last Admin: 06/10/21 01:11 Dose: Not Given Documented by: Remdesivir 200 mg/ Sodium (Chloride) 250 mls @ 250 mls/hr IV ONETIME ONE Stop: 06/10/21 00:53 Last Admin: 06/10/21 01:47 Dose: 250 mls/hr Documented by: Remdesivir 100 mg/ Sodium (Chloride) 100 mls @ 100 mls/hr IV Q24H [facility] Stop: 06/13/21 21:59 Last Admin: 06/13/21 21:19 Dose: 100 mls/hr Documented by: Ceftriaxone Sodium 1 gm/ (Sodium Chloride) 100 mls @ 200 mls/hr IV Q24H [facility] Last Admin: 06/11/21 09:01 Dose: 200 mls/hr Documented by: Ceftriaxone Sodium 2 gm/ (Sodium Chloride) 100 mls @ 200 mls/hr IV Q24H [facility] Stop: 06/16/21 09:29 Last Admin: 06/15/21 09:19 Dose: 200 mls/hr Documented by: Azithromycin 500 mg/ Sodium (Chloride) 250 mls @ 250 mls/hr IV Q24H [facility] Stop: 06/14/21 08:59 Last Admin: 06/14/21 08:49 Dose: 250 mls/hr Documented by: Sodium Chloride (Normal Saline) 100 mls @ 75 mls/hr IV ASDIRECTED [facility] Stop: 06/13/21 13:00 Last Admin: 06/13/21 09:52 Dose: 75 mls/hr Documented by: Lactated Ringer's (Ringers, Lactated) 1,000 mls @ 150 mls/hr IV ASDIRECTED [facility] Last Admin: 06/16/21 06:45 Dose: 150 mls/hr Documented by: Lactated Ringer's (Ringers, Lactated) Confirm Administered Dose 1,000 mls @ as directed .ROUTE .STK-MED ONE Stop: 06/16/21 06:44 Last Admin: 06/16/21 08:07 Dose: Not Given Documented by: Piperacillin Sod/Tazobactam (Sod 4.5 gm/ Sodium Chloride) 100 mls @ 200 mls/hr IV ONETIME ONE Stop: 06/16/21 08:31 Last Admin: 06/16/21 09:13 Dose: 200 mls/hr Documented by: Lactated Ringer's (Ringers, Lactated) 1,000 mls @ 75 mls/hr IV ASDIRECTED [facility] Last Admin: 06/16/21 22:47 Dose: 75 mls/hr Documented by: Insulin Glargine (Insulin Glarg,Human.Rec.Analog 100 Unit/Ml) 24 unit SUBCUT BEDTIME [facility] Insulin Glargine (Insulin Glargine,Hum.Rec.Anlog 100 Unit/Ml 3 Ml Pen) 24 unit SUBCUT BEDTIME [facility] Last Admin: 06/10/21 21:05 Dose: 24 units Documented by: Insulin Glargine (Insulin Glargine,Hum.Rec.Anlog 100 Unit/Ml 3 Ml Pen) 28 unit SUBCUT BEDTIME [facility] Last Admin: 06/11/21 21:21 Dose: 28 units Documented by: Insulin Human Isoph/Insulin Regular (Insulin Nph/Insulin Regular,Human 70-30 100 Units/Ml 10 Ml Vial) 0 units SUBCUT BIDAC [facility]; Protocol Last Admin: 06/10/21 02:36 Dose: Not Given Documented by: Insulin Human Lispro (Insulin Lispro 100 Unit/Ml 3 Ml Kwikpen) 0 unit SUBCUT QIDACANDBED [facility]; Protocol Last Admin: 06/10/21 12:15 Dose: Not Given Documented by: Insulin Human Regular (Insulin Regular, Human 100 Units/Ml 3 Ml Vial) 0 unit SUBCUT TIDPC [facility]; Protocol Last Admin: 06/12/21 09:12 Dose: 6 unit Documented by: Iopamidol (Iopamidol 755 Mg/Ml 100 Ml Bottle) 100 ml IVPUSH ONETIME ONE Stop: 06/09/21 23:54 Last Admin: 06/10/21 00:24 Dose: 100 ml Documented by: Iopamidol (Iopamidol 755 Mg/Ml 100 Ml Bottle) 100 ml IVPUSH ONETIME ONE Stop: 06/13/21 08:56 Last Admin: 06/13/21 09:52 Dose: 100 ml Documented by: Magnesium Hydroxide (Magnesium Hydroxide 400 Mg/5 Ml Susp 30 Ml Cup) 30 ml PO ONETIME ONE Stop: 06/13/21 06:01 Last Admin: 06/13/21 06:18 Dose: 30 ml Documented by: Metformin HCl (Metformin 500 Mg Tab) 1,000 mg PO BIDPAALS [facility] Last Admin: 06/11/21 06:06 Dose: 1,000 mg Documented by: Morphine Sulfate (Morphine 2 Mg/Ml Syringe) 2 mg IVPUSH Q2H PRN PRN Reason: Pain (severe 7-10) Stop: 06/11/21 07:46 Non-Formulary Medication (Tresiba) 24 units SQ ONETIME ONE Stop: 06/10/21 03:46 Last Admin: 06/10/21 03:45 Dose: 24 units Documented by: Carbidopa/Levodopa 25-250 Tab Own Med 1 tab PO 0600,1100,1500,1900,2300 [facility] Last Admin: 06/11/21 05:29 Dose: 1 tab Documented by: Non-Formulary Medication (Sitagliptin Phos/Metformin Hcl [Janumet 50-1,000 Mg]) 1 tab PO BID [facility] Non-Formulary Medication (Non-Formulary Medication 1 Each) 1 each PO BID [facility] Pantoprazole Sodium (Pantoprazole 40 Mg Vial) 80 mg IVPUSH BOLUS ONE Stop: 06/16/21 07:05 Last Admin: 06/16/21 08:03 Dose: 80 mg Documented by: Sodium Chloride (Sodium Chloride 0.9% 10 Ml Syringe) 10 ml FLUSH ONETIME PRN PRN Reason: IV FLUSH Stop: 06/13/21 13:00 Trospium (Trospium 20 Mg Tab) 10 mg PO BID [facility] Last Admin: 06/10/21 21:03 Dose: 10 mg Documented by: - Exam Quality Assessment: Supplemental Oxygen (Nasal cannula) Urinary Catheter Total Time: 1Days 2Hours General: Alert, Oriented HEENT: Pupils Equal, Mucous Membr. Moist/[place] Neck: Supple Lungs: Normal Respiratory Effort, Crackles (Bibasilar up to midlung amado) Cardiovascular: Regular Rate, Regular Rhythm GI/Abdominal Exam: Normal Bowel Sounds, Soft, Non-Tender, No Distention Extremities: Normal Inspection, Normal Capillary Refill, Pedal Edema (1+) Skin: Warm, Dry, Intact Psy/Mental Status: Alert, Normal Affect, Normal Mood - Patient Data Lab Results Last 24 hrs: Laboratory Results - last 24 hr 06/16/21 06/16/21 06/17/21 Range/Units 17:52 21:01 05:57 WBC 6.37 (4.23-9.07) K/mm3 RBC 4.21 L (4.63-6.08) M/mm3 Hgb 12.8 L D (13.7-17.5) gm/dl Hct 40.9 (40.1-51.0) % MCV 97.1 H (79.0-92.2) fl MCH 30.4 (25.7-32.2) pg MCHC 31.3 L (32.2-35.5) g/dl RDW Std Deviation 49.5 H (35.1-43.9) fL Plt Count 134 L (163-337) K/mm3 MPV 9.8 (9.4-12.3) fl Neut % (Auto) 92.1 H (34.0-67.9) % Lymph % (Auto) 5.2 L (21.8-53.1) % [place] % (Auto) 1.7 L (5.3-12.2) % Eos % (Auto) 0.2 L (0.8-7.0) Baso % (Auto) 0.0 L (0.1-1.2) % Neut # (Auto) 5.87 H (1.78-5.38) K/mm3 Lymph # (Auto) 0.33 L (1.32-3.57) K/mm3 [place] # (Auto) 0.11 L (0.30-0.82) K/mm3 Eos # (Auto) 0.01 L (0.04-0.54) K/mm3 Baso # (Auto) 0.00 L (0.01-0.08) K/mm3 Manual Slide Review Normal smear Sodium (136-145) mEq/L Potassium (3.5-5.1) mEq/L Chloride (98-107) mEq/L Carbon Dioxide (21-32) mEq/L Anion Gap (5-15) BUN (7-18) mg/dL Creatinine (0.7-1.3) mg/dL Est Cr Clr Drug Dosing mL/min Estimated GFR (MDRD) (>60) mL/min BUN/Creatinine Ratio (14-18) Glucose (70-99) mg/dL POC Glucose 87 120 H (70-99) mg/dL Calcium (8.5-10.1) mg/dL Magnesium (1.8-2.4) mg/dL Total Bilirubin (0.2-1.0) mg/dL AST (15-37) U/L ALT (16-63) U/L Alkaline Phosphatase (46-116) U/L C-Reactive Protein (<1.0) mg/dL Total Protein (6.4-8.2) g/dl Albumin (3.4-5.0) g/dl Globulin gm/dL Albumin/Globulin Ratio (1-2) 06/17/21 06/17/21 06/17/21 Range/Units 05:57 05:57 11:04 WBC (4.23-9.07) K/mm3 RBC (4.63-6.08) M/mm3 Hgb (13.7-17.5) gm/dl Hct (40.1-51.0) % MCV (79.0-92.2) fl MCH (25.7-32.2) pg MCHC (32.2-35.5) g/dl RDW Std Deviation (35.1-43.9) fL Plt Count (163-337) K/mm3 MPV (9.4-12.3) fl Neut % (Auto) (34.0-67.9) % Lymph % (Auto) (21.8-53.1) % [place] % (Auto) (5.3-12.2) % Eos % (Auto) (0.8-7.0) Baso % (Auto) (0.1-1.2) % Neut # (Auto) (1.78-5.38) K/mm3 Lymph # (Auto) (1.32-3.57) K/mm3 [place] # (Auto) (0.30-0.82) K/mm3 Eos # (Auto) (0.04-0.54) K/mm3 Baso # (Auto) (0.01-0.08) K/mm3 Manual Slide Review Sodium 139 (136-145) mEq/L Potassium 4.8 (3.5-5.1) mEq/L Chloride 103 (98-107) mEq/L Carbon Dioxide 29 (21-32) mEq/L Anion Gap 11.8 (5-15) BUN 29 H (7-18) mg/dL Creatinine 0.9 (0.7-1.3) mg/dL Est Cr Clr Drug Dosing 86.26 mL/min Estimated GFR (MDRD) > 60 (>60) mL/min BUN/Creatinine Ratio 32.2 H (14-18) Glucose 166 H (70-99) mg/dL POC Glucose 163 H 249 H (70-99) mg/dL Calcium 7.9 L (8.5-10.1) mg/dL Magnesium 2.1 (1.8-2.4) mg/dL Total Bilirubin 0.9 (0.2-1.0) mg/dL AST 27 (15-37) U/L ALT 9 L (16-63) U/L Alkaline Phosphatase 41 L (46-116) U/L C-Reactive Protein 13.1 H* (<1.0) mg/dL Total Protein 5.4 L (6.4-8.2) g/dl Albumin 1.9 L (3.4-5.0) g/dl Globulin 3.5 gm/dL Albumin/Globulin Ratio 0.5 L (1-2) Result Diagrams: 06/17/21 05:57 06/17/21 05:57 Sepsis Event Note - Evaluation Sepsis Screening Result: No Definite Risk - Focused Exam Vital Signs: Vital Signs Temp Temp Pulse Resp BP BP Pulse Ox 06/17/21 14:46 06/17/21 14:34 06/17/21 13:39 06/17/21 11:32 98.8 F 87 22 H 115/59 L 81 L 06/17/21 10:55 06/17/21 10:38 98.4 F 81 24 H 131/57 L 90 L 06/17/21 09:55 06/17/21 09:30 06/17/21 09:05 97.6 F 06/17/21 08:52 94 L 06/17/21 08:49 06/17/21 08:01 24 H 132/60 90 L 06/17/21 08:00 23 H 90 L 06/17/21 07:37 06/17/21 07:00 17 97 06/17/21 06:01 18 145/68 H 95 06/17/21 06:00 20 95 06/17/21 05:00 16 92 L 06/17/21 04:00 97.6 F 16 143/61 H 93 L Pulse Ox Pulse Ox Pulse Ox 06/17/21 14:46 91 L 06/17/21 14:34 95 06/17/21 13:39 95 06/17/21 11:32 06/17/21 10:55 91 L 06/17/21 10:38 06/17/21 09:55 94 L 06/17/21 09:30 94 L 06/17/21 09:05 06/17/21 08:52 06/17/21 08:49 94 L 06/17/21 08:01 06/17/21 08:00 06/17/21 07:37 94 L 06/17/21 07:00 06/17/21 06:01 06/17/21 06:00 06/17/21 05:00 06/17/21 04:00 - Problem List & Annotations (1) Acute respiratory failure due to COVID-19 SNOMED Code(s): 353356547 Code(s): U07.1 - COVID-19; J96.00 - ACUTE RESPIRATORY FAILURE, UNSP W HYPOXIA OR HYPERCAPNIA Status: Acute Priority: High Current Visit: Yes (2) Elevated C-reactive protein (CRP) SNOMED Code(s): 885061439204385 Code(s): R79.82 - ELEVATED C-REACTIVE PROTEIN (CRP) Status: Acute Priority: High Current Visit: Yes (3) Elevated d-dimer SNOMED Code(s): 541718469 Code(s): R79.89 - OTHER SPECIFIED ABNORMAL FINDINGS OF BLOOD CHEMISTRY Status: Acute Priority: High Current Visit: Yes (4) Pneumonia due to COVID-19 virus SNOMED Code(s): 305380909211419678 Code(s): U07.1 - COVID-19; J12.82 - PNEUMONIA DUE TO CORONAVIRUS DISEASE 2019 Status: Acute Priority: High Current Visit: Yes (5) Diabetes mellitus type 2 in nonobese SNOMED Code(s): 949472499 Code(s): E11.9 - TYPE 2 DIABETES MELLITUS WITHOUT COMPLICATIONS Status: Chronic Priority: High Current Visit: Yes (6) Parkinson's disease dementia SNOMED Code(s): 542885152569346 Code(s): G20 - PARKINSON'S DISEASE; F02.80 - DEMENTIA IN OTH DISEASES CLASSD ELSWHR W/O BEHAVRL DISTURB Status: Chronic Priority: High Current Visit: Yes Qualifiers: Dementia behavioral disturbance: without behavioral disturbance Qualified Code(s): G20 - Parkinson's disease; F02.80 - Dementia in other diseases classified elsewhere without behavioral disturbance - Problem List Review Problem List Initiated/Reviewed/Updated: Yes - My Orders Last 24 Hours: My Active Orders 06/16/21 16:00 Piperacillin/Tazobactam [Piperacil-Tazobact] 4.5 gm Sodium Chloride 0.9% [Normal Saline AdvBag] 100 ml IV Q8H 06/17/21 05:57 PROCALCITONIN [REF] Routine 06/17/21 09:33 Patient Status [ADT] Routine - Plan Plan:: The patient is a 71-year-old gentleman who has been admitted to acute hospitalization secondary to pneumonia associated with COVID-19. The patient has been started on dexamethasone 6 mg p.o. daily. The patient also has been started on remdesivir 100 mg IV daily as he was given 200 mg IV in the emergency department. The patient will be kept on carb constant diet and Accu-Cheks before meals and at bedtime. He is on insulin sliding scale low-dose. The patient has a history of what appears to be Parkinson's dementia and he is also on carbidopa/levodopa and this has been continued as a part of his home medications. The patient's DVT prophylaxis will be the use of Lovenox 40 mg subcutaneous daily. Oxygen will be titrated to keep his saturations around 92%. Repeat laboratory studies have been ordered. PT OT also has been ordered for the patient. Because of the patient's comorbidities and his COVID-19 pneumonia his overall prognosis is poor. 06/11/2021 71-year-old male with a history of Parkinson's disease admitted for treatment of his COVID-19 pneumonia. Patient was noted to be very confused on admission and this has improved greatly. He is alert to person place and time. He continues on dexamethasone and remdesivir. Labs today show a WBC of 7.26. Hemoglobin 12.7. Platelet 178,000. Patient has been on Rocephin and there is no clear indication for this. We will therefore discontinue it. Procalcitonin is pending. Blood cultures are negative. D-dimer is elevated at 2.61 which is an improvement over yesterday. Patient CTA was negative however we will also check lower extremities for DVT. No obvious signs of DVT at this point. Sodium 138. Potassium 4.5. Chloride 103. Carbon dioxide 26. Anion gap 13.5. BUN is 31. Creatinine 1.0. GFR is improved to greater than 60. Glucose has been ranging from 345-237. We will discontinue patient's Metformin but we will continue alogliptin. We will increase patient's long-acting insulin to 28 units at bedtime as he has been receiving significant amounts of sliding scale insulin. Magnesium is 2.2. Bilirubin 0.4. AST is 32, ALT 9, alkaline phosphatase 40. CRP is 12.0. Protein is 5.9. Albumin is 2.3. There is some confusion with when the patient actually developed symptoms whether or not his symptoms have been improving or worsening. Because of this we will keep the patient on q uarantine for a total of 10 days unless he requires high flow. This would mean he may come off of isolation at 06/15/2021 at 23:59. Discussed plan of care with patient. He reports he would like us to discuss this with his daughters. There is some [id number] on whether or not to continue remdesivir and ultimately decision is made to continue this as patient's liver enzymes and renal function look good. Family requests zinc and vitamin C be started and this seems reasonable. They would like vitamin D be started and we will check a level of this prior to prescribing. All questions answered. Unknown length of stay due to severity of COVID-19 illness. 06/12/2021 This is a 71-year-old male with a history of Parkinson's disease who is admitted to a floor for altered mental status and COVID-19 pneumonia. His mental status remains greatly improved with baseline confusion. He is on 6 to 7 L via nasal cannula with saturations in the upper 80s to low 90s. His procalcitonin from yesterday returned quite elevated at 2.04. Because of this we will resume Rocep hin 2 g and start 3 days worth of azithromycin. We will check a UA on the patient as well. Labs today show a WBC of 5.09. Hemoglobin 12.5. Platelet of 202,000. Neutrophils are elevated 85.1%. Sodium 139. Potassium 4.4. Chloride 102. Carbon dioxide 31. Anion gap 10.4. BUN is 31. Creatinine 1.1. GFR is greater than 60. Glucose has remained elevated at 2 48-2 82 we will continue to monitor this and adjust insulin as needed. Magnesium is 2.2. Bilirubin 0.5. AST is 27, ALT 18, alkaline phosphatase 39. CRP is down to 5.6. Albumin is 2.2. We will continue remdesivir and dexamethasone. Patient's vitamin D level was within normal limits at 81.0 we will not start vitamin D supplementation. Patient is reporting significant joint pain and we will order as needed Aspercreme and scheduled Tylenol. Unknown length of stay due to severity of COVID-19 illness. 06/13/2021 71-year-old male with a history of Parkinson's disease was admitted to the floor for treatment of his COVID-19 pneumonia. Unfortunately patient's oxygen saturations have continued to drop he is now requiring high flow oxygen 55 L with an FiO2 of 85%. Overall he states he feels worse today than he did yesterday. Blood cultures remain negative. Labs show WBC of 4.54. Hemoglobin is 13.2. Platelets 200,000. Neutrophils are elevated 84.8%. D-dimer increased today to 6.74. Because of this and his worsening saturations patient was sent for CTA, which was negative although there was noted suboptimal opacification of the main or segmental branches. It is noted that smaller subsegmental pulmonary emboli could be missed. Diffuse parenchymal densities within both sides of the chest are noted however there is slight improvement also noted. Other chronic findings are noted. Sodium is 140. Potassium 4.6. Chloride 102. Carbon dioxide 32. BUN is 24. Creatinine 1.0. GFR is greater than 60. Blood glucose readings have improved from 1 62-2 25. Magnesium is 1.9. Bilirubin 0.5. AST is 28, ALT 7, alkaline phosphatase 41. CRP is 3.0. Protein is 6.2. Albumin is 2.2. UA was obtained yesterday and was negative however 1+ protein, 2+ glucose, and trace ketones are noted. At the patient's request of his daughter Clemencia was contacted at [phone] to discuss progress and possibly starting baricitinib. They will get back to us regarding this. We will consider moving patient to ICU should a bed become available given his rapidly deteriorating status. Unknown length of stay due to severity of Covid symptoms. We will continue remdesivir and increase dexamethasone to 6 mg twice daily starting today. Patient also continues on 3 days worth of azithromycin and 5 days worth of Rocephin. We will recheck a procalcitonin given his prior elevated resolved. Length of stay greater than 96 hours due to need for continued COVID-19 treatment. 06/14/2021 71-year-old male with history of Parkinson's disease admitted to the floor for COVID-19. Saturations have improved today and he remains on 50 L high flow with an FiO2 of 65%. Blood cultures remain negative. Vital signs otherwise been stable. He completed azithromycin and continues on Rocephin. He completed his remdesivir treatment. As the patient was having rapidly worsening oxygen saturations baricitinib was recommended yesterday and after discussion with the patient and amongst family members they ultimately agreed in the evening hours. WBC is 4.92. Hemoglobin 14.1. Platelet 194,000. Neutrophils are 88.4%. Blood smear is normal. Sodium is 139. Potassium 4.5. Chloride 100. Carbon oxide 32. Anion gap 11.5. BUN is 22. Creatinine 0.9. GFR greater than 60. Glucose is 97-1 58. Magnesium 2.1. Bilirubin 0.6. AST is 28, ALT is 15, alkaline phosphatase 46. CRP is 4.6. Albumin is 2.4. We will continue current treatment plan and attempt to wean off oxygen as the patient tolerates. Unknown length of stay. Because of his significant worsening in oxygen saturations over the last 12-24 hours I have recommended baricitinib. I spoke with Yehuda and his daughter Elena via phone to provide information about baricitinib. I offered the "fax sheet for patients and parents/caregivers, for baricitinib" to read and review. I stated that therapy has been approved by an emergency use authorization process and has not fully been FDA reviewed or approved. I shared potential risks from the therapy including increased risk for serious infections, anaphylaxis, and reaction to medication. I discussed there are other potential treatment options that are currently not FDA approved to treat COVID-19. Offered opportunity to ask questions and all questions were answered. Yehuda and Elena voiced understanding and after some discussion agreed to proceed with treatment. 06/15/2021 This is a 71-year-old male with a history of Parkinson's disease who was admitted to the floor for treatment of COVID-19 pneumonia. His saturations have been improving with therapy and he is currently on 40 L with an FiO2 of 50%. He continues on Rocephin with his last dose tomorrow and he completed azithromycin and remdesivir. He also continues on dexamethasone 6 mg twice daily and baricitinib. Today patient's D-dimer was noted to be 20.38. Patient has had 2 CTAs with PE protocol and has had his legs scanned for DVT. Given his improving oxygen saturations and lack of leg pain or other signs of DVT, combined with his prior imaging we will forego scanning and begin 1 mg/kg twice daily Lovenox treatment. We will continue to monitor D-dimers as ordered. Otherwise patient states that he is feeling better. His lung sounds are improving with better aeration of the lower amado. He has not been sleeping well at night and we will start him on scheduled melatonin. We will also start the let me sleep protocol. Given his continued stability we will decrease vital signs to 4 times daily. Labs today show a leukocytosis of 9.30. Hemoglobin is 14.4. Platelet 203,000. Smear is normal. D-dimer as mentioned prior was 20.38. Sodium 139. Potassium 4.4. Chloride 102. Carbon dioxide 28. Anion gap 13.4. BUN is 29. Creatinine 1.0. GFR greater than 60. Glucose has been between 147 and 244. Calcium is 8.7. Magnesium 2.1. Total bilirubin 0.6. AST is 27, ALT 14, alkaline phosphatase 46. CRP is 2.7. Given the severity of his symptoms he will require 20 days of isolation/quarantine. Unknown length of stay due to continued severity of COVID-19 pneumonia. Goal saturations will be 2 L or less via nasal cannula prior to discharge. Patient's daughter Clemencia updated on patient's progress and plan of care at request of patient. 06/16/2021 71-year-old male with history of Parkinson's disease being treated for COVID-19 pneumonia. He had a large coffee-ground emesis this morning. Yesterday we increased his Lovenox 200 mg every 12 hours per full dose protocol for anticoagulation. Patient's D-dimer had increased to 20, but CTA of the chest done on June 13 was negative for PE but slightly suboptimal opacification of the pulmonary arteries. Because the smaller subsegmental pulmonary emboli could be missed and he had a continuing increase in his D-dimer we felt that prudent to treat him with full anticoagulation. Also of note venous Doppler studies were negative for DVT. There was concern that patient could have aspirated when he had the large coffee-ground emesis. Chest x-ray was performed which showed improvement in the parenchymal densities within both sides of the chest. He was switched over to Zosyn to cover for aspiration pneumonia. He had an increase oxygen requirement and high flow requirement precipitating the increase coverage. Also, patient is much more lethargic and answering and only short sentences. Family was updated. Of note his hemoglobin actually increased and he appears to be hemoconcentrated. He was on 35 L of high flow overnight until he had this episode and now he is on CPAP 9 cm of water pressure with 15 L bled in. He has been given a bolus of 250 mL of LR and started on a rate of 150 mL to correct his apparent hypovolemia. Patient has mild tachycardia with the increase of his hemoglobin from 14.4-16.2. White count did also increased from 9.3-11.45. Platelet count is stable at 188. Creatinine increased from 1.0-1.7 making his estimated GFR 40. BUN is now 26. CRP has decreased from 2.7-1.9. He has a slight anion gap of 16.6. We will repeat his hemoglobin at noon. Start on Protonix 80 mg IV bolus then 40 mg twice daily. We will stop his Lovenox and continue SCDs. He is much more lethargic today, but this could be due to stress so we will continue to monitor his mental status. He was transferred to the ICU. 06/17/2021 71-year-old male with Parkinson's being treated for COVID-19 pneumonia had a significant improvement in the last 24 hours. He was moved out of the ICU back to the floor. He has had a small drop in his hemoglobin from 14 yesterday afternoon down to 12.8 this morning. He has not had any more bleeding. We did stop his anticoagulation secondary to his coffee-ground emesis. He is on Protonix twice daily. He is currently on 6 L nasal cannula with oxygen saturations in the low 90s. His CRP did increase up to 13.1 from 1.9. This is likely secondary to the inflammatory response yesterday. He continues on Zosyn for antibiotics. Blood sugars this afternoon were high at 249. Renal function has also improved BUN of 29 with a creatinine of 0.9. Continue other care.
[2021-06-17] MEDS: Melatonin 3 MG Tab PO SCH (21:33)
[2021-06-17] MEDS: Insulin Glargine,Hum.Rec.Anlog 100 UNIT/ML 3 ML Pen SUBCUT SCH (21:34)
[2021-06-17] MEDS: Tamsulosin 0.4 MG Cap.ER PO SCH (21:34)
[2021-06-18] MEDS: Acetaminophen 325 MG Tab PO SCH ×3 (06:25→22:22)
[2021-06-18] MEDS: Levothyroxine 50 MCG Tab PO SCH (06:25)
[2021-06-18] MEDS: LEVODOPA PO SCH ×5 (06:26→22:26)
[2021-06-18] MEDS: CARBIDOPA PO SCH ×5 (06:26→22:26)
--- NOTE | 2021-06-18 08:05 | PCM.PN ---
<Bryn Bello - Last Filed: 06/18/21 13:21> - General Info Date of Service: 06/18/21 Admission Dx/Problem (Free Text): Admission Diagnosis/Problem Admission Diagnosis/Problem acute respiratory failure due to COVID-19 pneumonia. Functional Status: Reports: Pain Controlled, Tolerating Diet, Ambulating, Urinating, Incentive Spirometry, Other (Acapella ). Denies: New Symptoms - Review of Systems General: Reports: Weakness, Fatigue. Denies: Fever, Malaise, Chills HEENT: Reports: No Symptoms. Denies: Headaches, Sore Throat Pulmonary: Reports: Shortness of Breath, Cough, Sputum. Denies: Pleuritic Chest Pain, Hemoptysis, Wheezing Cardiovascular: Reports: No Symptoms, Dyspnea on Exertion. Denies: Chest Pain, Palpitations, Edema Gastrointestinal: Reports: No Symptoms. Denies: Abdominal Pain, Constipation, Diarrhea, Nausea, Vomiting Genitourinary: Reports: No Symptoms. Denies: Pain Musculoskeletal: Reports: No Symptoms Skin: Reports: No Symptoms. Denies: Cyanosis Neurological: Reports: Difficulty Walking, Weakness, Gait Disturbance. Denies: Confusion, Dizziness, Headache, Numbness, Pre-Existing Deficit, Seizure, Syncope, Tingling, Trouble Speaking Psychiatric: Reports: No Symptoms - Patient Data Vitals - Most Recent: Last Vital Signs Temp 97.5 F 06/18/21 03:43 Pulse 83 06/18/21 03:43 Resp 24 H 06/18/21 03:43 BP 143/76 H 06/18/21 03:43 Pulse Ox 94 L 06/18/21 03:43 Weight - Most Recent: 231 lb 12.8 oz I&O - Last 24 Hours: Intake & Output 06/17/21 06/18/21 06/18/21 22:59 06:59 14:59 Intake Total 550 100 Balance 550 100 Lab Results Last 24 Hours: Laboratory Results - last 24 hr 06/17/21 06/17/21 06/17/21 Range/Units 11:04 16:36 21:30 WBC (4.23-9.07) K/mm3 RBC (4.63-6.08) M/mm3 Hgb (13.7-17.5) gm/dl Hct (40.1-51.0) % MCV (79.0-92.2) fl MCH (25.7-32.2) pg MCHC (32.2-35.5) g/dl RDW Std Deviation (35.1-43.9) fL Plt Count (163-337) K/mm3 MPV (9.4-12.3) fl Neut % (Auto) (34.0-67.9) % Lymph % (Auto) (21.8-53.1) % [place] % (Auto) (5.3-12.2) % Eos % (Auto) (0.8-7.0) Baso % (Auto) (0.1-1.2) % Neut # (Auto) (1.78-5.38) K/mm3 Lymph # (Auto) (1.32-3.57) K/mm3 [place] # (Auto) (0.30-0.82) K/mm3 Eos # (Auto) (0.04-0.54) K/mm3 Baso # (Auto) (0.01-0.08) K/mm3 Manual Slide Review Sodium (136-145) mEq/L Potassium (3.5-5.1) mEq/L Chloride (98-107) mEq/L Carbon Dioxide (21-32) mEq/L Anion Gap (5-15) BUN (7-18) mg/dL Creatinine (0.7-1.3) mg/dL Est Cr Clr Drug Dosing mL/min Estimated GFR (MDRD) (>60) mL/min BUN/Creatinine Ratio (14-18) Glucose (70-99) mg/dL POC Glucose 249 H 260 H 255 H (70-99) mg/dL Calcium (8.5-10.1) mg/dL Magnesium (1.8-2.4) mg/dL Total Bilirubin (0.2-1.0) mg/dL AST (15-37) U/L ALT (16-63) U/L Alkaline Phosphatase (46-116) U/L C-Reactive Protein (<1.0) mg/dL Total Protein (6.4-8.2) g/dl Albumin (3.4-5.0) g/dl Globulin gm/dL Albumin/Globulin Ratio (1-2) 06/18/21 06/18/21 06/18/21 Range/Units 06:20 06:20 06:21 WBC 12.20 H (4.23-9.07) K/mm3 RBC 4.54 L (4.63-6.08) M/mm3 Hgb 13.9 (13.7-17.5) gm/dl Hct 44.0 (40.1-51.0) % MCV 96.9 H (79.0-92.2) fl MCH 30.6 (25.7-32.2) pg MCHC 31.6 L (32.2-35.5) g/dl RDW Std Deviation 49.1 H (35.1-43.9) fL Plt Count 167 (163-337) K/mm3 MPV 9.7 (9.4-12.3) fl Neut % (Auto) 91.0 H (34.0-67.9) % Lymph % (Auto) 3.4 L (21.8-53.1) % [place] % (Auto) 4.8 L (5.3-12.2) % Eos % (Auto) 0.2 L (0.8-7.0) Baso % (Auto) 0.0 L (0.1-1.2) % Neut # (Auto) 11.11 H (1.78-5.38) K/mm3 Lymph # (Auto) 0.42 L (1.32-3.57) K/mm3 [place] # (Auto) 0.58 (0.30-0.82) K/mm3 Eos # (Auto) 0.02 L (0.04-0.54) K/mm3 Baso # (Auto) 0.00 L (0.01-0.08) K/mm3 Manual Slide Review Abnormal smear Sodium 141 (136-145) mEq/L Potassium 4.8 (3.5-5.1) mEq/L Chloride 104 (98-107) mEq/L Carbon Dioxide 32 (21-32) mEq/L Anion Gap 9.8 (5-15) BUN 30 H (7-18) mg/dL Creatinine 1.0 (0.7-1.3) mg/dL Est Cr Clr Drug Dosing 77.63 mL/min Estimated GFR (MDRD) > 60 (>60) mL/min BUN/Creatinine Ratio 30.0 H (14-18) Glucose 176 H (70-99) mg/dL POC Glucose 172 H (70-99) mg/dL Calcium 8.5 (8.5-10.1) mg/dL Magnesium 2.3 (1.8-2.4) mg/dL Total Bilirubin 0.5 (0.2-1.0) mg/dL AST 27 (15-37) U/L ALT 10 L (16-63) U/L Alkaline Phosphatase 44 L (46-116) U/L C-Reactive Protein 6.9 H* (<1.0) mg/dL Total Protein 6.0 L (6.4-8.2) g/dl Albumin 2.2 L (3.4-5.0) g/dl Globulin 3.8 gm/dL Albumin/Globulin Ratio 0.6 L (1-2) Med Orders - Current: Current Medications Acetaminophen (Acetaminophen 325 Mg Tab) 650 mg PO Q8H [facility] Last Admin: 06/18/21 06:25 Dose: 650 mg Documented by: Al Hydroxide/Mg Hydroxide (Aluminum Hydroxide/Magnesium Hydroxide/Simethicone Susp 30 Ml Cup) 30 ml PO Q4H PRN PRN Reason: Heartburn Last Admin: 06/14/21 21:37 Dose: 30 ml Documented by: Albuterol (Albuterol 6.7 Gm Inhaler) 0 gm INH QID PRN PRN Reason: SOB/Wheezing Albuterol/Ipratropium (Albuterol/Ipratropium 3.0-0.5 Mg/3 Ml Neb Soln) 3 ml NEB Q4H PRN PRN Reason: Shortness Of Breath/wheezing Last Admin: 06/17/21 14:34 Dose: 3 ml Documented by: Alogliptin Benzoate (Alogliptin 12.5 Mg Tab) 12.5 mg PO BIDMEALS [facility] Last Admin: 06/18/21 06:25 Dose: 12.5 mg Documented by: Ascorbic Acid (Ascorbic Acid 500 Mg Tab) 500 mg PO DAILY [facility] Last Admin: 06/17/21 08:00 Dose: 500 mg Documented by: Baricitinib (Baricitinib 2 Mg Tab) 4 mg PO DAILY [facility] Stop: 06/26/21 09:01 Last Admin: 06/17/21 08:00 Dose: 4 mg Documented by: Dexamethasone (Dexamethasone 4 Mg Tab) 6 mg PO BID [facility] Last Admin: 06/17/21 21:34 Dose: 6 mg Documented by: Docusate Sodium (Docusate Sodium 100 Mg Cap) 100 mg PO BID PRN PRN Reason: Constipation Last Admin: 06/14/21 12:07 Dose: 100 mg Documented by: Finasteride (Finasteride 5 Mg Tab) 5 mg PO DAILY [facility] Last Admin: 06/17/21 08:00 Dose: 5 mg Documented by: Guaifenesin/Phenylephrine HCl (Guaifenesin/Dextromethorphan 100-10 Mg/5 Ml Soln 5 Ml Cup) 10 ml PO Q6H PRN PRN Reason: Cough Piperacillin Sod/Tazobactam (Sod 4.5 gm/ Sodium Chloride) 100 mls @ 25 mls/hr IV Q8H [facility] Last Admin: 06/17/21 23:41 Dose: 25 mls/hr Documented by: Insulin Glargine (Insulin Glargine,Hum.Rec.Anlog 100 Unit/Ml 3 Ml Pen) 32 unit SUBCUT BEDTIME [facility] Last Admin: 06/17/21 21:34 Dose: 32 unit Documented by: Insulin Human Regular (Insulin Regular, Human 100 Units/Ml 3 Ml Vial) 0 unit SUBCUT QIDACANDBED [facility]; Protocol Last Admin: 06/17/21 21:34 Dose: 9 unit Documented by: Levothyroxine Sodium (Levothyroxine 50 Mcg Tab) 50 mcg PO ACBREAKFAST [facility] Last Admin: 06/18/21 06:25 Dose: 50 mcg Documented by: Melatonin (Melatonin 3 Mg Tab) 6 mg PO BEDTIME [facility] Last Admin: 06/17/21 21:33 Dose: 6 mg Documented by: Carbidopa/Levodopa 25-250 Tab Own Med 1 tab PO 0600,1100,1500,1900,2300 [facility] Last Admin: 06/18/21 06:26 Dose: 1 tab Documented by: Ondansetron HCl (Ondansetron 4 Mg Tab.Dis) 4 mg PO Q4H PRN PRN Reason: nausea, able to take PO Oxycodone HCl (Oxycodone 5 Mg Tab) 5 mg PO Q4H PRN PRN Reason: Pain (moderate 4-6) Last Admin: 06/16/21 17:59 Dose: 5 mg Documented by: Sodium Chloride (Sodium Chloride 0.9% 10 Ml Syringe) 10 ml FLUSH ASDIRECTED PRN PRN Reason: Keep Vein Open Last Admin: 06/10/21 00:24 Dose: 10 ml Documented by: Tamsulosin HCl (Tamsulosin 0.4 Mg Cap.Er) 0.4 mg PO BEDTIME [facility] Last Admin: 06/17/21 21:34 Dose: 0.4 mg Documented by: Temazepam (Temazepam 15 Mg Cap) 15 mg PO BEDTIME PRN PRN Reason: Sleep Last Admin: 06/13/21 21:18 Dose: 15 mg Documented by: Trolamine Salicylate (Trolamine Salicylate/Aloe Vera 10% Crm 85 Gm Tube) 1 gm TOP Q2H PRN PRN Reason: Pain (moderate 4-6) Last Admin: 06/13/21 09:30 Dose: 1 applic Documented by: Trospium (Trospium 20 Mg Tab) 20 mg PO BID [facility] Last Admin: 06/17/21 21:34 Dose: 20 mg Documented by: Zinc Sulfate (Zinc Sulfate 220 Mg Cap) 220 mg PO DAILY [facility] Last Admin: 06/17/21 08:00 Dose: 220 mg Documented by: Discontinued Medications Acetaminophen (Acetaminophen 325 Mg Tab) 975 mg PO NOW ONE Stop: 06/09/21 21:16 Last Admin: 06/09/21 21:41 Dose: 350 mg Documented by: Acetaminophen (Acetaminophen 650 Mg Supp) 650 mg RECTAL NOW ONE Stop: 06/09/21 21:52 Last Admin: 06/09/21 22:30 Dose: 650 mg Documented by: Acetaminophen (Acetaminophen 325 Mg Tab) 650 mg PO Q4H PRN PRN Reason: Pain (Mild 1-3)/fever Last Admin: 06/12/21 08:10 Dose: 650 mg Documented by: Acetaminophen (Acetaminophen 325 Mg Tab) 975 mg PO Q8HR [facility] Acetaminophen (Acetaminophen 325 Mg Tab) 650 mg PO Q8H [facility] Last Admin: 06/12/21 11:51 Dose: Not Given Documented by: Acetaminophen (Acetaminophen 325 Mg Tab) 650 mg PO Q8H [facility] Last Admin: 06/16/21 02:16 Dose: Not Given Documented by: Carbidopa/Levodopa (Carbidopa/Levodopa 25-100 Mg Tab) 1 tab PO QID [facility] Last Admin: 06/10/21 16:54 Dose: 1 tab Documented by: Dexamethasone (Dexamethasone 4 Mg/Ml 5 Ml Mdv) 6 mg IV ONETIME ONE Stop: 06/10/21 00:53 Last Admin: 06/10/21 01:31 Dose: 6 mg Documented by: Dexamethasone (Dexamethasone 4 Mg Tab) 6 mg PO DAILY [facility] Stop: 06/18/21 09:01 Last Admin: 06/12/21 08:55 Dose: 6 mg Documented by: Enoxaparin Sodium (Enoxaparin 40 Mg/0.4 Ml Syringe) 40 mg SUBCUT DAILY [facility] Last Admin: 06/14/21 10:24 Dose: 40 mg Documented by: Enoxaparin Sodium (Enoxaparin 100 Mg/1 Ml Syringe) 100 mg SUBCUT Q12H [facility] Last Admin: 06/15/21 22:00 Dose: 100 mg Documented by: Glimepiride (Glimepiride 2 Mg Tab) 4 mg PO DAILY [facility] Last Admin: 06/10/21 09:51 Dose: 4 mg Documented by: Glimepiride (Glimepiride 2 Mg Tab) 2 mg PO WITHBREAKFAST [facility] Last Admin: 06/11/21 06:05 Dose: 2 mg Documented by: Sodium Chloride (Normal Saline) 1,000 mls @ 250 mls/hr IV ONETIME ONE Stop: 06/10/21 01:14 Last Infusion: 06/09/21 21:41 Dose: 250 mls/hr Documented by: Sodium Chloride (Normal Saline) Confirm Administered Dose 1,000 mls @ as directed .ROUTE .[facility]-MED ONE Stop: 06/09/21 21:19 Last Admin: 06/10/21 01:11 Dose: Not Given Documented by: Remdesivir 200 mg/ Sodium (Chloride) 250 mls @ 250 mls/hr IV ONETIME ONE Stop: 06/10/21 00:53 Last Admin: 06/10/21 01:47 Dose: 250 mls/hr Documented by: Remdesivir 100 mg/ Sodium (Chloride) 100 mls @ 100 mls/hr IV Q24H [facility] Stop: 06/13/21 21:59 Last Admin: 06/13/21 21:19 Dose: 100 mls/hr Documented by: Ceftriaxone Sodium 1 gm/ (Sodium Chloride) 100 mls @ 200 mls/hr IV Q24H [facility] Last Admin: 06/11/21 09:01 Dose: 200 mls/hr Documented by: Ceftriaxone Sodium 2 gm/ (Sodium Chloride) 100 mls @ 200 mls/hr IV Q24H [facility] Stop: 06/16/21 09:29 Last Admin: 06/15/21 09:19 Dose: 200 mls/hr Documented by: Azithromycin 500 mg/ Sodium (Chloride) 250 mls @ 250 mls/hr IV Q24H [facility] Stop: 06/14/21 08:59 Last Admin: 06/14/21 08:49 Dose: 250 mls/hr Documented by: Sodium Chloride (Normal Saline) 100 mls @ 75 mls/hr IV ASDIRECTED [facility] Stop: 06/13/21 13:00 Last Admin: 06/13/21 09:52 Dose: 75 mls/hr Documented by: Lactated Ringer's (Ringers, Lactated) 1,000 mls @ 150 mls/hr IV ASDIRECTED [facility] Last Admin: 06/16/21 06:45 Dose: 150 mls/hr Documented by: Lactated Ringer's (Ringers, Lactated) Confirm Administered Dose 1,000 mls @ as directed .ROUTE .[facility]-MED ONE Stop: 06/16/21 06:44 Last Admin: 06/16/21 08:07 Dose: Not Given Documented by: Piperacillin Sod/Tazobactam (Sod 4.5 gm/ Sodium Chloride) 100 mls @ 200 mls/hr IV ONETIME ONE Stop: 06/16/21 08:31 Last Admin: 06/16/21 09:13 Dose: 200 mls/hr Documented by: Lactated Ringer's (Ringers, Lactated) 1,000 mls @ 75 mls/hr IV ASDIRECTED [facility] Last Admin: 06/16/21 22:47 Dose: 75 mls/hr Documented by: Insulin Glargine (Insulin Glarg,Human.Rec.Analog 100 Unit/Ml) 24 unit SUBCUT BEDTIME [facility] Insulin Glargine (Insulin Glargine,Hum.Rec.Anlog 100 Unit/Ml 3 Ml Pen) 24 unit SUBCUT BEDTIME [facility] Last Admin: 06/10/21 21:05 Dose: 24 units Documented by: Insulin Glargine (Insulin Glargine,Hum.Rec.Anlog 100 Unit/Ml 3 Ml Pen) 28 unit SUBCUT BEDTIME [facility] Last Admin: 06/11/21 21:21 Dose: 28 units Documented by: Insulin Human Isoph/Insulin Regular (Insulin Nph/Insulin Regular,Human 70-30 100 Units/Ml 10 Ml Vial) 0 units SUBCUT BIDAC [facility]; Protocol Last Admin: 06/10/21 02:36 Dose: Not Given Documented by: Insulin Human Lispro (Insulin Lispro 100 Unit/Ml 3 Ml Kwikpen) 0 unit SUBCUT QIDACANDBED [facility]; Protocol Last Admin: 06/10/21 12:15 Dose: Not Given Documented by: Insulin Human Regular (Insulin Regular, Human 100 Units/Ml 3 Ml Vial) 0 unit SUBCUT TIDPC [facility]; Protocol Last Admin: 06/12/21 09:12 Dose: 6 unit Documented by: Iopamidol (Iopamidol 755 Mg/Ml 100 Ml Bottle) 100 ml IVPUSH ONETIME ONE Stop: 06/09/21 23:54 Last Admin: 06/10/21 00:24 Dose: 100 ml Documented by: Iopamidol (Iopamidol 755 Mg/Ml 100 Ml Bottle) 100 ml IVPUSH ONETIME ONE Stop: 06/13/21 08:56 Last Admin: 06/13/21 09:52 Dose: 100 ml Documented by: Magnesium Hydroxide (Magnesium Hydroxide 400 Mg/5 Ml Susp 30 Ml Cup) 30 ml PO ONETIME ONE Stop: 06/13/21 06:01 Last Admin: 06/13/21 06:18 Dose: 30 ml Documented by: Metformin HCl (Met[facility] 500 Mg Tab) [facility] Last Admin: 06/11/21 06:06 Dose: 1,000 mg Documented by: Morphine Sulfate (Morphine 2 Mg/Ml Syringe) 2 mg IVPUSH Q2H PRN PRN Reason: Pain (severe 7-10) Stop: 06/11/21 07:46 Non-Formulary Medication (Tresiba) 24 units SQ ONETIME ONE Stop: 06/10/21 03:46 Last Admin: 06/10/21 03:45 Dose: 24 units Documented by: Carbidopa/Levodopa 25-250 Tab Own Med 1 tab PO 0600,1100,1500,1900,2300 [facility] Last Admin: 06/11/21 05:29 Dose: 1 tab Documented by: Non-Formulary Medication (Sitagliptin Phos/Metformin Hcl [Janumet 50-1,000 Mg]) 1 tab PO BID [facility] Non-Formulary Medication (Non-Formulary Medication 1 Each) 1 each PO BID [facility] Pantoprazole Sodium (Pantoprazole 40 Mg Vial) 80 mg IVPUSH BOLUS ONE Stop: 06/16/21 07:05 Last Admin: 06/16/21 08:03 Dose: 80 mg Documented by: Sodium Chloride (Sodium Chloride 0.9% 10 Ml Syringe) 10 ml FLUSH ONETIME PRN PRN Reason: IV FLUSH Stop: 06/13/21 13:00 Trospium (Trospium 20 Mg Tab) 10 mg PO BID [facility] Last Admin: 06/10/21 21:03 Dose: 10 mg Documented by: - Exam Quality Assessment: Supplemental Oxygen, DVT Prophylaxis. No: Urine Catheter (High flow 45 L with FiO2 of 50%) Urinary Catheter Total Time: 1Days 9Hours General: Alert, Oriented, Cooperative, No Acute Distress HEENT: Pupils Equal, Pupils Reactive, Mucous Membr. Moist/[place] Neck: Supple, Trachea Midline Lungs: Normal Respiratory Effort, Decreased Breath Sounds, Crackles. No: Rhonchi, Wheezing Cardiovascular: Regular Rate, Regular Rhythm GI/Abdominal Exam: Normal Bowel Sounds, Soft, Non-Tender, No Distention (Male) Exam: Deferred Back Exam: Normal Inspection, Decreased Range of Motion Extremities: Normal Inspection, Normal Range of Motion, Non-Tender, No Pedal Edema, Normal Capillary Refill Peripheral Pulses: 2+: Radial (L), Radial (R), Dorsalis Pedis (L), Dorsalis Pedis (R) Skin: Warm, Dry, Intact Neurological: No New Focal Deficit Psy/Mental Status: Alert, Normal Affect, Normal Mood #1 Interpretation EKG Date: 06/18/21 Time: 08:15 Rhythm: NSR Rate (Beats/Min): 99 [place]: Normal (73) P-Wave: Present QRS: Normal ST-T: Normal QT: Normal Comparison: No Change EKG Interpretation Comments: NSR at 99 BPM. Baseline wander. T-wave inversion in III- non-specific. ? LAE, Borderline EKG - Patient Data Lab Results Last 24 hrs: Laboratory Results - last 24 hr 06/17/21 06/17/21 06/17/21 Range/Units 11:04 16:36 21:30 WBC (4.23-9.07) K/mm3 RBC (4.63-6.08) M/mm3 Hgb (13.7-17.5) gm/dl Hct (40.1-51.0) % MCV (79.0-92.2) fl MCH (25.7-32.2) pg MCHC (32.2-35.5) g/dl RDW Std Deviation (35.1-43.9) fL Plt Count (163-337) K/mm3 MPV (9.4-12.3) fl Neut % (Auto) (34.0-67.9) % Lymph % (Auto) (21.8-53.1) % [place] % (Auto) (5.3-12.2) % Eos % (Auto) (0.8-7.0) Baso % (Auto) (0.1-1.2) % Neut # (Auto) (1.78-5.38) K/mm3 Lymph # (Auto) (1.32-3.57) K/mm3 [place] # (Auto) (0.30-0.82) K/mm3 Eos # (Auto) (0.04-0.54) K/mm3 Baso # (Auto) (0.01-0.08) K/mm3 Manual Slide Review Sodium (136-145) mEq/L Potassium (3.5-5.1) mEq/L Chloride (98-107) mEq/L Carbon Dioxide (21-32) mEq/L Anion Gap (5-15) BUN (7-18) mg/dL Creatinine (0.7-1.3) mg/dL Est Cr Clr Drug Dosing mL/min Estimated GFR (MDRD) (>60) mL/min BUN/Creatinine Ratio (14-18) Glucose (70-99) mg/dL POC Glucose 249 H 260 H 255 H (70-99) mg/dL Calcium (8.5-10.1) mg/dL Magnesium (1.8-2.4) mg/dL Total Bilirubin (0.2-1.0) mg/dL AST (15-37) U/L ALT (16-63) U/L Alkaline Phosphatase (46-116) U/L C-Reactive Protein (<1.0) mg/dL Total Protein (6.4-8.2) g/dl Albumin (3.4-5.0) g/dl Globulin gm/dL Albumin/Globulin Ratio (1-2) 11/08/21 11/08/21 11/08/21 Range/Units 06:20 06:20 06:21 WBC 12.20 H (4.23-9.07) K/mm3 RBC 4.54 L (4.63-6.08) M/mm3 Hgb 13.9 (13.7-17.5) gm/dl Hct 44.0 (40.1-51.0) % MCV 96.9 H (79.0-92.2) fl MCH 30.6 (25.7-32.2) pg MCHC 31.6 L (32.2-35.5) g/dl RDW Std Deviation 49.1 H (35.1-43.9) fL Plt Count 167 (163-337) K/mm3 MPV 9.7 (9.4-12.3) fl Neut % (Auto) 91.0 H (34.0-67.9) % Lymph % (Auto) 3.4 L (21.8-53.1) % [place] % (Auto) 4.8 L (5.3-12.2) % Eos % (Auto) 0.2 L (0.8-7.0) Baso % (Auto) 0.0 L (0.1-1.2) % Neut # (Auto) 11.11 H (1.78-5.38) K/mm3 Lymph # (Auto) 0.42 L (1.32-3.57) K/mm3 [place] # (Auto) 0.58 (0.30-0.82) K/mm3 Eos # (Auto) 0.02 L (0.04-0.54) K/mm3 Baso # (Auto) 0.00 L (0.01-0.08) K/mm3 Manual Slide Review Abnormal smear Sodium 141 (136-145) mEq/L Potassium 4.8 (3.5-5.1) mEq/L Chloride 104 (98-107) mEq/L Carbon Dioxide 32 (21-32) mEq/L Anion Gap 9.8 (5-15) BUN 30 H (7-18) mg/dL Creatinine 1.0 (0.7-1.3) mg/dL Est Cr Clr Drug Dosing 77.63 mL/min Estimated GFR (MDRD) > 60 (>60) mL/min BUN/Creatinine Ratio 30.0 H (14-18) Glucose 176 H (70-99) mg/dL POC Glucose 172 H (70-99) mg/dL Calcium 8.5 (8.5-10.1) mg/dL Magnesium 2.3 (1.8-2.4) mg/dL Total Bilirubin 0.5 (0.2-1.0) mg/dL AST 27 (15-37) U/L ALT 10 L (16-63) U/L Alkaline Phosphatase 44 L (46-116) U/L C-Reactive Protein 6.9 H* (<1.0) mg/dL Total Protein 6.0 L (6.4-8.2) g/dl Albumin 2.2 L (3.4-5.0) g/dl Globulin 3.8 gm/dL Albumin/Globulin Ratio 0.6 L (1-2) Result Diagrams: 06/18/21 06:20 06/18/21 06:20 Sepsis Event Note - Evaluation Sepsis Screening Result: No Definite Risk - Focused Exam Vital Signs: Vital Signs Temp Pulse Resp BP Pulse Ox 06/18/21 03:43 97.5 F 83 24 H 143/76 H 94 L 06/17/21 23:46 98.1 F 62 18 157/89 H 98 06/17/21 20:47 98.1 F 65 17 129/79 92 L - Problem List & Annotations (1) Acute respiratory failure due to COVID-19 SNOMED Code(s): 453900008 Code(s): U07.1 - COVID-19; J96.00 - ACUTE RESPIRATORY FAILURE, UNSP W HYPOXIA OR HYPERCAPNIA Status: Acute Priority: High Current Visit: Yes (2) Pneumonia due to COVID-19 virus SNOMED Code(s): 393986571664032580 Code(s): U07.1 - COVID-19; J12.82 - PNEUMONIA DUE TO CORONAVIRUS DISEASE 2019 Status: Acute Priority: High Current Visit: Yes (3) Diabetes mellitus type 2 in nonobese SNOMED Code(s): 490456795 Code(s): E11.9 - TYPE 2 DIABETES MELLITUS WITHOUT COMPLICATIONS Status: Chronic Priority: High Current Visit: Yes (4) Parkinson's disease dementia SNOMED Code(s): 264929687855298 Code(s): G20 - PARKINSON'S DISEASE; F02.80 - DEMENTIA IN OTH DISEASES CLASSD ELSWHR W/O BEHAVRL DISTURB Status: Chronic Priority: High Current Visit: Yes Qualifiers: Dementia behavioral disturbance: without behavioral disturbance Qualified Code(s): G20 - Parkinson's disease; F02.80 - Dementia in other diseases classified elsewhere without behavioral disturbance (5) Elevated C-reactive protein (CRP) SNOMED Code(s): 164367079884733 Code(s): R79.82 - ELEVATED C-REACTIVE PROTEIN (CRP) Status: Acute Priority: High Current Visit: Yes (6) Elevated d-dimer SNOMED Code(s): 229636632 Code(s): R79.89 - OTHER SPECIFIED ABNORMAL FINDINGS OF BLOOD CHEMISTRY Status: Acute Priority: High Current Visit: Yes (7) Elevated procalcitonin SNOMED Code(s): 530444346, 000349531 Code(s): R79.89 - OTHER SPECIFIED ABNORMAL FINDINGS OF BLOOD CHEMISTRY Status: Resolved Priority: High Current Visit: Yes (8) GI bleed SNOMED Code(s): 44562893 Code(s): K92.2 - GASTROINTESTINAL HEMORRHAGE, UNSPECIFIED Status: Resolved Priority: Medium Current Visit: Yes Qualifiers: GI bleed type/associated pathology: unspecified gastrointestinal hemorrhage type Qualified Code(s): K92.2 - Gastrointestinal hemorrhage, unspecified (9) Aspiration into airway SNOMED Code(s): 853646328 Code(s): T17.908A - UNSP FB IN RESP TRACT, PART UNSP CAUSING OTH INJURY, INIT Status: Suspected Priority: High Current Visit: Yes Qualifiers: Encounter type: initial encounter Qualified Code(s): T17.908A - Unspecified foreign body in respiratory tract, part unspecified causing other injury, initial encounter - Problem List Review Problem List Initiated/Reviewed/Updated: Yes - My Orders Last 24 Hours: My Active Orders 06/18/21 08:02 EKG 12 Lead [EKG Documentation Completion] [RC] STAT CKMB [CHEM] Stat TROPONIN I [CHEM] Stat 06/19/21 05:11 CBC WITH AUTO DIFF [HEME] AM CMP [COMPREHENSIVE METABOLIC PN,CMP] [CHEM] AM CRP [C-REACTIVE PROTEIN] [CHEM] AM MAGNESIUM [CHEM] AM - Plan Plan:: The patient is a 71-year-old gentleman who has been admitted to acute hospitalization secondary to pneumonia associated with COVID-19. The patient has been started on dexamethasone 6 mg p.o. daily. The patient also has been started on remdesivir 100 mg IV daily as he was given 200 mg IV in the emergency department. The patient will be kept on carb constant diet and Accu-Cheks before meals and at bedtime. He is on insulin sliding scale low-dose. The patient has a history of what appears to be Parkinson's dementia and he is also on carbidopa/levodopa and this has been continued as a part of his home medications. The patient's DVT prophylaxis will be the use of Lovenox 40 mg subcutaneous daily. Oxygen will be titrated to keep his saturations around 92%. Repeat laboratory studies have been ordered. PT OT also has been ordered for the patient. Because of the patient's comorbidities and his COVID-19 pneumonia his overall prognosis is poor. 06/11/2021 71-year-old male with a history of Parkinson's disease admitted for treatment of his COVID-19 pneumonia. Patient was noted to be very confused on admission and this has improved greatly. He is alert to person place and time. He continues on dexamethasone and remdesivir. Labs today show a WBC of 7.26. Hemoglobin 12.7. Platelet 178,000. Patient has been on Rocephin and there is no clear indication for this. We will therefore discontinue it. Procalcitonin is pending. Blood cultures are negative. D-dimer is elevated at 2.61 which is an improvement over yesterday. Patient CTA was negative however we will also check lower extremities for DVT. No obvious signs of DVT at this point. Sodium 138. Potassium 4.5. Chloride 103. Carbon dioxide 26. Anion gap 13.5. BUN is 31. Creatinine 1.0. GFR is improved to greater than 60. Glucose has been ranging from 345-237. We will discontinue patient's Metformin but we will continue alogliptin. We will increase patient's long-acting insulin to 28 units at bedtime as he has been receiving significant amounts of sliding scale insulin. Magnesium is 2.2. Bilirubin 0.4. AST is 32, ALT 9, alkaline phosphatase 40. CRP is 12.0. Protein is 5.9. Albumin is 2.3. There is some confusion with when the patient actually developed symptoms whether or not his symptoms have been improving or worsening. Because of this we will keep the patient on quarantine for a total of 10 days unless he requires high flow. This would mean he may come off of isolation at 06/15/2021 at 23:59. Discussed plan of care with patient. He reports he would like us to discuss this with his daughters. There is some [id number] on whether or not to continue remdesivir and ultimately decision is made to continue this as patient's liver enzymes and renal function look good. Family requests zinc and vitamin C be started and this seems reasonable. They would like vitamin D be started and we will check a level of this prior to prescribing. All questions answered. Unknown length of stay due to severity of COVID-19 illness. 06/12/2021 This is a 71-year-old male with a history of Parkinson's disease who is admitted to a floor for altered mental status and COVID-19 pneumonia. His mental status remains greatly improved with baseline confusion. He is on 6 to 7 L via nasal cannula with saturations in the upper 80s to low 90s. His procalcitonin from yesterday returned quite elevated at 2.04. Because of this we will resume Rocephin 2 g and start 3 days worth of azithromycin. We will check a UA on the patient as well. Labs today show a WBC of 5.09. Hemoglobin 12.5. Platelet of 202,000. Neutrophils are elevated 85.1%. Sodium 139. Potassium 4.4. Chloride 102. Carbon dioxide 31. Anion gap 10.4. BUN is 31. Creatinine 1.1. GFR is greater than 60. Glucose has remained elevated at 2 48-2 82 we will continue to monitor this and adjust insulin as needed. Magnesium is 2.2. Bilirubin 0.5. AST is 27, ALT 18, alkaline phosphatase 39. CRP is down to 5.6. Albumin is 2.2. We will continue remdesivir and dexamethasone. Patient's vitamin D level was within normal limits at 81.0 we will not start vitamin D supplementation. Patient is reporting significant joint pain and we will order as needed Aspercreme and scheduled Tylenol. Unknown length of stay due to severity of COVID-19 illness. 06/13/2021 71-year-old male with a history of Parkinson's disease was admitted to the floor for treatment of his COVID-19 pneumonia. Unfortunately patient's oxygen saturations have continued to drop he is now requiring high flow oxygen 55 L with an FiO2 of 85%. Overall he states he feels worse today than he did yesterday. Blood cultures remain negative. Labs show WBC of 4.54. Hemoglobin is 13.2. Platelets 200,000. Neutrophils are elevated 84.8%. D-dimer increased today to 6.74. Because of this and his worsening saturations patient was sent for CTA, which was negative although there was noted suboptimal opacification of the main or segmental branches. It is noted that smaller subsegmental pulmonary emboli could be missed. Diffuse parenchymal densities within both sides of the chest are noted however there is slight improvement also noted. Other chronic findings are noted. Sodium is 140. Potassium 4.6. Chloride 102. Carbon dioxide 32. BUN is 24. Creatinine 1.0. GFR is greater than 60. Blood glucose readings have improved from 1 62-2 25. Magnesium is 1.9. Bilirubin 0.5. AST is 28, ALT 7, alkaline phosphatase 41. CRP is 3.0. Protein is 6.2. Albumin is 2.2. UA was obtained yesterday and was negative however 1+ protein, 2+ glucose, and trace ketones are noted. At the patient's request of his daughter Clemencia was contacted at [phone] to discuss progress and possibly starting baricitinib. They will get back to us regarding this. We will consider moving patient to ICU should a bed become available given his rapidly deteriorating status. Unknown length of stay due to severity of Covid symptoms. We will continue remdesivir and increase dexamethasone to 6 mg twice daily starting today. Patient also continues on 3 days worth of azithromycin and 5 days worth of Rocephin. We will recheck a procalcitonin given his prior elevated resolved. Length of stay greater than 96 hours due to need for continued COVID-19 treatment. 06/14/2021 71-year-old male with history of Parkinson's disease admitted to the floor for COVID-19. Saturations have improved today and he remains on 50 L high flow with an FiO2 of 65%. Blood cultures remain negative. Vital signs otherwise been stable. He completed azithromycin and continues on Rocephin. He completed his remdesivir treatment. As the patient was having rapidly worsening oxygen saturations baricitinib was recommended yesterday and after discussion with the patient and amongst family members they ultimately agreed in the evening hours. WBC is 4.92. Hemoglobin 14.1. Platelet 194,000. Neutrophils are 88.4%. Blood smear is normal. Sodium is 139. Potassium 4.5. Chloride 100. Carbon oxide 32. Anion gap 11.5. BUN is 22. Creatinine 0.9. GFR greater than 60. Glucose is 97-1 58. Magnesium 2.1. Bilirubin 0.6. AST is 28, ALT is 15, alkaline phosphatase 46. CRP is 4.6. Albumin is 2.4. We will continue current treatment plan and attempt to wean off oxygen as the patient tolerates. Unknown length of stay. Because of his significant worsening in oxygen saturations over the last 12-24 hours I have recommended baricitinib. I spoke with Yehuda and his daughter Elena via phone to provide information about baricitinib. I offered the "fax sheet for patients and parents/caregivers, for baricitinib" to read and review. I stated that therapy has been approved by an emergency use authorization process and has not fully been FDA reviewed or approved. I shared potential risks from the therapy including increased risk for serious infections, anaphylaxis, and reaction to medication. I discussed there are other potential treatment options that are currently not FDA approved to treat COVID-19. Offered opportunity to ask questions and all questions were answered. Yehuda and Elena voiced understanding and after some discussion agreed to proceed with treatment. 06/15/2021 This is a 71-year-old male with a history of Parkinson's disease who was admitted to the floor for treatment of COVID-19 pneumonia. His saturations have been improving with therapy and he is currently on 40 L with an FiO2 of 50%. He continues on Rocephin with his last dose tomorrow and he completed azithromycin and remdesivir. He also continues on dexamethasone 6 mg twice daily and ba ricitinib. Today patient's D-dimer was noted to be 20.38. Patient has had 2 CTAs with PE protocol and has had his legs scanned for DVT. Given his improving oxygen saturations and lack of leg pain or other signs of DVT, combined with his prior imaging we will forego scanning and begin 1 mg/kg twice daily Lovenox treatment. We will continue to monitor D-dimers as ordered. Otherwise patient states that he is feeling better. His lung sounds are improving with better aeration of the lower amado. He has not been sleeping well at night and we will start him on scheduled melatonin. We will also start the let me sleep protocol. Given his continued stability we will decrease vital signs to 4 times daily. Labs today show a leukocytosis of 9.30. Hemoglobin is 14.4. Platelet 203,000. Smear is normal. D-dimer as mentioned prior was 20.38. Sodium 139. Potassium 4.4. Chloride 102. Carbon dioxide 28. Anion gap 13.4. BUN is 29. Creatinine 1.0. GFR greater than 60. Glucose has been between 147 and 244. Calcium is 8.7. Magnesium 2.1. Total bilirubin 0.6. AST is 27, ALT 14, alk afua phosphatase 46. CRP is 2.7. Given the severity of his symptoms he will require 20 days of isolation/quarantine. Unknown length of stay due to continued severity of COVID-19 pneumonia. Goal saturations will be 2 L or less via nasal cannula prior to discharge. Patient's daughter Clemencia updated on patient's progress and plan of care at request of patient. 06/16/2021 71-year-old male with history of Parkinson's disease being treated for COVID-19 pneumonia. He had a large coffee-ground emesis this morning. Yesterday we increased his Lovenox 200 mg every 12 hours per full dose protocol for anticoagulation. Patient's D-dimer had increased to 20, but CTA of the chest done on June 13 was negative for PE but slightly suboptimal opacification of the pulmonary arteries. Because the smaller subsegmental pulmonary emboli could be missed and he had a continuing increase in his D-dimer we felt that prudent to treat him with full anticoagulation. Also of note venous Doppler studies were negative for DVT. There was concern that patient could have aspirated when he had the large coffee-ground emesis. Chest x-ray was performed which showed improvement in the parenchymal densities within both sides of the chest. He was switched over to Zosyn to cover for aspiration pneumonia. He had an increase oxygen requirement and high flow requirement precipitating the increase coverage. Also, patient is much more lethargic and answering and only short sentences. Family was updated. Of note his hemoglobin actually increased and he appears to be hemoconcentrated. He was on 35 L of high flow overnight until he had this episode and now he is on CPAP 9 cm of water pressure with 15 L bled in. He has been given a bolus of 250 mL of LR and started on a rate of 150 mL to correct his apparent hypovolemia. Patient has mild tachycardia with the increase of his hemoglobin from 14.4-16.2. White count did also increased from 9.3-11.45. Platelet count is stable at 188. Creatinine increased from 1.0-1.7 making his estimated GFR 40. BUN is now 26. CRP has decreased from 2.7-1.9. He has a slight anion gap of 16.6. We will repeat his hemoglobin at noon. Start on Protonix 80 mg IV bolus then 40 mg twice daily. We will stop his Lovenox and continue SCDs. He is much more lethargic today, but this could be due to stress so we will continue to monitor his mental status. He was transferred to the ICU. 06/17/2021 71-year-old male with Parkinson's being treated for COVID-19 pneumonia had a significant improvement in the last 24 hours. He was moved out of the ICU back to the floor. He has had a small drop in his hemoglobin from 14 yesterday afternoon down to 12.8 this morning. He has not had any more bleeding. We did stop his anticoagulation secondary to his coffee-ground emesis. He is on Protonix twice daily. He is currently on 6 L nasal cannula with oxygen saturations in the low 90s. His CRP did increase up to 13.1 from 1.9. This is likely secondary to the inflammatory response yesterday. He continues on Zosyn for antibiotics. Blood sugars this afternoon were high at 249. Renal function has also improved BUN of 29 with a creatinine of 0.9. Continue other care. 06/18/2021 This is a 71-year-old male admitted to the floor for COVID-19 pneumonia. Over the weekend he was noted to have a large coffee-ground emesis and there was concern that he may have aspirated. He was started on Zosyn and that continues. His oxygen saturations have decreased and he is currently on 40 L with an FiO2 of 55%. Today he was complaining of chest pain a twelve-lead EKG was obtained as noted with no findings of any acute ischemia. Troponin was checked and was less than 0.017. CK-MB was 4.2. CRP has decreased to 6.9 white count today is up to 12.20 of note patient continues on dexamethasone 6 mg twice daily. We will look at decreasing this in the near future. Platelet are 167,000. Ne utrophils are elevated 91%. Smear shows normal-appearing red blood cells and slight thrombocytopenia with normal morphology. Neutrophilia is also noted. PT today was 11.6. INR was 1.05. aPTT was 25.1. D-dimer was quite high at 25.45. Electrolytes look good. Renal function continues with a GFR greater than 60. Blood sugars have been between 172 and 302. Bilirubin 0.5. AST is 27, ALT 10, alkaline phosphatase 44. Albumin is improved to 2.2. Discussed elevated D- dimer with Dr. Wolf, attending hospitalist, and we will restart VTE pharmacological prophylaxis using a heparin drip with VTE protocol. We will not give initial bolus dose. We will continue to monitor for signs of GI bleed and will continue Protonix twice daily. Procalcitonin is pending and we will monitor this for guidance with antibiotic therapy. Overall he states that he is doing a bit better than yesterday and that he feels okay. Unknown length of stay due to severity of symptoms. <Matthew Wolf Jr - Last Filed: 06/18/21 19:02> - Patient Data Vitals - Most Recent: Last Vital Signs Temp 97.5 F 06/18/21 15:15 Pulse 75 06/18/21 15:15 Resp 20 06/18/21 15:15 BP 127/91 H 06/18/21 15:15 Pulse Ox 92 L 06/18/21 16:29 I&O - Last 24 Hours: Intake & Output 06/18/21 06/18/21 06/18/21 06:59 14:59 22:59 Intake Total 100 1520 Balance 100 1520 Lab Results Last 24 Hours: Laboratory Results - last 24 hr 06/17/21 06/17/21 06/18/21 Range/Units 05:57 21:30 06:20 WBC 12.20 H (4.23-9.07) K/mm3 RBC 4.54 L (4.63-6.08) M/mm3 Hgb 13.9 (13.7-17.5) gm/dl Hct 44.0 (40.1-51.0) % MCV 96.9 H (79.0-92.2) fl MCH 30.6 (25.7-32.2) pg MCHC 31.6 L (32.2-35.5) g/dl RDW Std Deviation 49.1 H (35.1-43.9) fL Plt Count 167 (163-337) K/mm3 MPV 9.7 (9.4-12.3) fl Neut % (Auto) 91.0 H (34.0-67.9) % Lymph % (Auto) 3.4 L (21.8-53.1) % [place] % (Auto) 4.8 L (5.3-12.2) % Eos % (Auto) 0.2 L (0.8-7.0) Baso % (Auto) 0.0 L (0.1-1.2) % Neut # (Auto) 11.11 H (1.78-5.38) K/mm3 Lymph # (Auto) 0.42 L (1.32-3.57) K/mm3 [place] # (Auto) 0.58 (0.30-0.82) K/mm3 Eos # (Auto) 0.02 L (0.04-0.54) K/mm3 Baso # (Auto) 0.00 L (0.01-0.08) K/mm3 Manual Slide Review Abnormal smear PT (9.7-12.0) SECONDS INR APTT (21.7-31.4) SECONDS D-Dimer, Quantitative (0.19-0.50) mg/L Sodium (136-145) mEq/L Potassium (3.5-5.1) mEq/L Chloride (98-107) mEq/L Carbon Dioxide (21-32) mEq/L Anion Gap (5-15) BUN (7-18) mg/dL Creatinine (0.7-1.3) mg/dL Est Cr Clr Drug Dosing mL/min Estimated GFR (MDRD) (>60) mL/min BUN/Creatinine Ratio (14-18) Glucose (70-99) mg/dL POC Glucose 255 H (70-99) mg/dL Calcium (8.5-10.1) mg/dL Magnesium (1.8-2.4) mg/dL Total Bilirubin (0.2-1.0) mg/dL AST (15-37) U/L ALT (16-63) U/L Alkaline Phosphatase (46-116) U/L CK-MB (CK-2) (0-3.6) ng/ml Troponin I (0.00-0.056) ng/mL C-Reactive Protein (<1.0) mg/dL Total Protein (6.4-8.2) g/dl Albumin (3.4-5.0) g/dl Globulin gm/dL Albumin/Globulin Ratio (1-2) Procalcitonin 0.26 H ng/mL 06/18/21 06/18/21 06/18/21 Range/Units 06:20 06:20 06:21 WBC (4.23-9.07) K/mm3 RBC (4.63-6.08) M/mm3 Hgb (13.7-17.5) gm/dl Hct (40.1-51.0) % MCV (79.0-92.2) fl MCH (25.7-32.2) pg MCHC (32.2-35.5) g/dl RDW Std Deviation (35.1-43.9) fL Plt Count (163-337) K/mm3 MPV (9.4-12.3) fl Neut % (Auto) (34.0-67.9) % Lymph % (Auto) (21.8-53.1) % [place] % (Auto) (5.3-12.2) % Eos % (Auto) (0.8-7.0) Baso % (Auto) (0.1-1.2) % Neut # (Auto) (1.78-5.38) K/mm3 Lymph # (Auto) (1.32-3.57) K/mm3 [place] # (Auto) (0.30-0.82) K/mm3 Eos # (Auto) (0.04-0.54) K/mm3 Baso # (Auto) (0.01-0.08) K/mm3 Manual Slide Review PT (9.7-12.0) SECONDS INR APTT (21.7-31.4) SECONDS D-Dimer, Quantitative (0.19-0.50) mg/L Sodium 141 (136-145) mEq/L Potassium 4.8 (3.5-5.1) mEq/L Chloride 104 (98-107) mEq/L Carbon Dioxide 32 (21-32) mEq/L Anion Gap 9.8 (5-15) BUN 30 H (7-18) mg/dL Creatinine 1.0 (0.7-1.3) mg/dL Est Cr Clr Drug Dosing 77.63 mL/min Estimated GFR (MDRD) > 60 (>60) mL/min BUN/Creatinine Ratio 30.0 H (14-18) Glucose 176 H (70-99) mg/dL POC Glucose 172 H (70-99) mg/dL Calcium 8.5 (8.5-10.1) mg/dL Magnesium 2.3 (1.8-2.4) mg/dL Total Bilirubin 0.5 (0.2-1.0) mg/dL AST 27 (15-37) U/L ALT 10 L (16-63) U/L Alkaline Phosphatase 44 L (46-116) U/L CK-MB (CK-2) 4.2 H (0-3.6) ng/ml Troponin I < 0.017 (0.00-0.056) ng/mL C-Reactive Protein 6.9 H* (<1.0) mg/dL Total Protein 6.0 L (6.4-8.2) g/dl Albumin 2.2 L (3.4-5.0) g/dl Globulin 3.8 gm/dL Albumin/Globulin Ratio 0.6 L (1-2) Procalcitonin ng/mL 06/18/21 06/18/21 06/18/21 Range/Units 10:23 11:03 11:09 WBC (4.23-9.07) K/mm3 RBC (4.63-6.08) M/mm3 Hgb (13.7-17.5) gm/dl Hct (40.1-51.0) % MCV (79.0-92.2) fl MCH (25.7-32.2) pg MCHC (32.2-35.5) g/dl RDW Std Deviation (35.1-43.9) fL Plt Count (163-337) K/mm3 MPV (9.4-12.3) fl Neut % (Auto) (34.0-67.9) % Lymph % (Auto) (21.8-53.1) % [place] % (Auto) (5.3-12.2) % Eos % (Auto) (0.8-7.0) Baso % (Auto) (0.1-1.2) % Neut # (Auto) (1.78-5.38) K/mm3 Lymph # (Auto) (1.32-3.57) K/mm3 [place] # (Auto) (0.30-0.82) K/mm3 Eos # (Auto) (0.04-0.54) K/mm3 Baso # (Auto) (0.01-0.08) K/mm3 Manual Slide Review PT 11.6 (9.7-12.0) SECONDS INR 1.05 APTT (21.7-31.4) SECONDS D-Dimer, Quantitative 25.45 H (0.19-0.50) mg/L Sodium (136-145) mEq/L Potassium (3.5-5.1) mEq/L Chloride (98-107) mEq/L Carbon Dioxide (21-32) mEq/L Anion Gap (5-15) BUN (7-18) mg/dL Creatinine (0.7-1.3) mg/dL Est Cr Clr Drug Dosing mL/min Estimated GFR (MDRD) (>60) mL/min BUN/Creatinine Ratio (14-18) Glucose (70-99) mg/dL POC Glucose 302 H (70-99) mg/dL Calcium (8.5-10.1) mg/dL Magnesium (1.8-2.4) mg/dL Total Bilirubin (0.2-1.0) mg/dL AST (15-37) U/L ALT (16-63) U/L Alkaline Phosphatase (46-116) U/L CK-MB (CK-2) (0-3.6) ng/ml Troponin I (0.00-0.056) ng/mL C-Reactive Protein (<1.0) mg/dL Total Protein (6.4-8.2) g/dl Albumin (3.4-5.0) g/dl Globulin gm/dL Albumin/Globulin Ratio (1-2) Procalcitonin ng/mL 06/18/21 06/18/21 06/18/21 Range/Units 11:13 17:02 18:08 WBC (4.23-9.07) K/mm3 RBC (4.63-6.08) M/mm3 Hgb (13.7-17.5) gm/dl Hct (40.1-51.0) % MCV (79.0-92.2) fl MCH (25.7-32.2) pg MCHC (32.2-35.5) g/dl RDW Std Deviation (35.1-43.9) fL Plt Count (163-337) K/mm3 MPV (9.4-12.3) fl Neut % (Auto) (34.0-67.9) % Lymph % (Auto) (21.8-53.1) % [place] % (Auto) (5.3-12.2) % Eos % (Auto) (0.8-7.0) Baso % (Auto) (0.1-1.2) % Neut # (Auto) (1.78-5.38) K/mm3 Lymph # (Auto) (1.32-3.57) K/mm3 [place] # (Auto) (0.30-0.82) K/mm3 Eos # (Auto) (0.04-0.54) K/mm3 Baso # (Auto) (0.01-0.08) K/mm3 Manual Slide Review PT (9.7-12.0) SECONDS INR APTT 25.1 37.2 H (21.7-31.4) SECONDS D-Dimer, Quantitative (0.19-0.50) mg/L Sodium (136-145) mEq/L Potassium (3.5-5.1) mEq/L Chloride (98-107) mEq/L Carbon Dioxide (21-32) mEq/L Anion Gap (5-15) BUN (7-18) mg/dL Creatinine (0.7-1.3) mg/dL Est Cr Clr Drug Dosing mL/min Estimated GFR (MDRD) (>60) mL/min BUN/Creatinine Ratio (14-18) Glucose (70-99) mg/dL POC Glucose 257 H (70-99) mg/dL Calcium (8.5-10.1) mg/dL Magnesium (1.8-2.4) mg/dL Total Bilirubin (0.2-1.0) mg/dL AST (15-37) U/L ALT (16-63) U/L Alkaline Phosphatase (46-116) U/L CK-MB (CK-2) (0-3.6) ng/ml Troponin I (0.00-0.056) ng/mL C-Reactive Protein (<1.0) mg/dL Total Protein (6.4-8.2) g/dl Albumin (3.4-5.0) g/dl Globulin gm/dL Albumin/Globulin Ratio (1-2) Procalcitonin ng/mL Med Orders - Current: Current Medications Acetaminophen (Acetaminophen 325 Mg Tab) 650 mg PO Q8H [facility] Last Admin: 06/18/21 15:08 Dose: 650 mg Documented by: Al Hydroxide/Mg Hydroxide (Aluminum Hydroxide/Magnesium Hydroxide/Simethicone Susp 30 Ml Cup) 30 ml PO Q4H PRN PRN Reason: Heartburn Last Admin: 06/14/21 21:37 Dose: 30 ml Documented by: Albuterol (Albuterol 6.7 Gm Inhaler) 0 gm INH QID PRN PRN Reason: SOB/Wheezing Albuterol/Ipratropium (Albuterol/Ipratropium 3.0-0.5 Mg/3 Ml Neb Soln) 3 ml NEB Q4H PRN PRN Reason: Shortness Of Breath/wheezing Last Admin: 06/18/21 14:22 Dose: 3 ml Documented by: Alogliptin Benzoate (Alogliptin 12.5 Mg Tab) 12.5 mg PO BIDMEALS [facility] Last Admin: 06/18/21 18:07 Dose: 12.5 mg Documented by: Ascorbic Acid (Ascorbic Acid 500 Mg Tab) 500 mg PO DAILY [facility] Last Admin: 06/18/21 08:12 Dose: 500 mg Documented by: Baricitinib (Baricitinib 2 Mg Tab) 4 mg PO DAILY [facility] Stop: 06/26/21 09:01 Last Admin: 06/18/21 08:12 Dose: 4 mg Documented by: Dexamethasone (Dexamethasone 4 Mg Tab) 6 mg PO BID [facility] Last Admin: 06/18/21 08:12 Dose: 6 mg Documented by: Docusate Sodium (Docusate Sodium 100 Mg Cap) 100 mg PO BID PRN PRN Reason: Constipation Last Admin: 06/14/21 12:07 Dose: 100 mg Documented by: Finasteride (Finasteride 5 Mg Tab) 5 mg PO DAILY [facility] Last Admin: 06/18/21 08:11 Dose: 5 mg Documented by: Guaifenesin/Phenylephrine HCl (Guaifenesin/Dextromethorphan 100-10 Mg/5 Ml Soln 5 Ml Cup) 10 ml PO Q6H PRN PRN Reason: Cough Piperacillin Sod/Tazobactam (Sod 4.5 gm/ Sodium Chloride) 100 mls @ 25 mls/hr IV Q8H [facility] Last Admin: 06/18/21 15:08 Dose: 25 mls/hr Documented by: Heparin Sodium/Dextrose (Heparin 25,000 Units In D5w 500 Ml) 25,000 units in 500 mls @ 26 mls/hr IV TITRATE [facility]; Protocol Last Titration: 06/18/21 18:48 Dose: 30 ml/hr, 30 mls/hr Documented by: Insulin Glargine (Insulin Glargine,Hum.Rec.Anlog 100 Unit/Ml 3 Ml Pen) 32 unit SUBCUT BEDTIME [facility] Last Admin: 06/17/21 21:34 Dose: 32 unit Documented by: Insulin Human Regular (Insulin Regular, Human 100 Units/Ml 3 Ml Vial) 0 unit SUBCUT QIDACANDBED [facility]; Protocol Last Admin: 06/18/21 18:07 Dose: 9 unit Documented by: Levothyroxine Sodium (Levothyroxine 50 Mcg Tab) 50 mcg PO ACBREAKFAST [facility] Last Admin: 06/18/21 06:25 Dose: 50 mcg Documented by: Melatonin (Melatonin 3 Mg Tab) 6 mg PO BEDTIME [facility] Last Admin: 06/17/21 21:33 Dose: 6 mg Documented by: Carbidopa/Levodopa 25-250 Tab Own Med 1 tab PO 0600,1100,1500,1900,2300 [facility] Last Admin: 06/18/21 18:08 Dose: 1 tab Documented by: Ondansetron HCl (Ondansetron 4 Mg Tab.Dis) 4 mg PO Q4H PRN PRN Reason: nausea, able to take PO Oxycodone HCl (Oxycodone 5 Mg Tab) 5 mg PO Q4H PRN PRN Reason: Pain (moderate 4-6) Last Admin: 06/16/21 17:59 Dose: 5 mg Documented by: Sodium Chloride (Sodium Chloride 0.9% 10 Ml Syringe) 10 ml FLUSH ASDIRECTED PRN PRN Reason: Keep Vein Open Last Admin: 06/10/21 00:24 Dose: 10 ml Documented by: Tamsulosin HCl (Tamsulosin 0.4 Mg Cap.Er) 0.4 mg PO BEDTIME [facility] Last Admin: 06/17/21 21:34 Dose: 0.4 mg Documented by: Temazepam (Temazepam 15 Mg Cap) 15 mg PO BEDTIME PRN PRN Reason: Sleep Last Admin: 06/13/21 21:18 Dose: 15 mg Documented by: Trolamine Salicylate (Trolamine Salicylate/Aloe Vera 10% Crm 85 Gm Tube) 1 gm TOP Q2H PRN PRN Reason: Pain (moderate 4-6) Last Admin: 06/13/21 09:30 Dose: 1 applic Documented by: Trospium (Trospium 20 Mg Tab) 20 mg PO BID [facility] Last Admin: 06/18/21 08:12 Dose: 20 mg Documented by: Zinc Sulfate (Zinc Sulfate 220 Mg Cap) 220 mg PO DAILY [facility] Last Admin: 06/18/21 08:11 Dose: 220 mg Documented by: Discontinued Medications Acetaminophen (Acetaminophen 325 Mg Tab) 975 mg PO NOW ONE Stop: 06/09/21 21:16 Last Admin: 06/09/21 21:41 Dose: 350 mg Documented by: Acetaminophen (Acetaminophen 650 Mg Supp) 650 mg RECTAL NOW ONE Stop: 06/09/21 21:52 Last Admin: 06/09/21 22:30 Dose: 650 mg Documented by: Acetaminophen (Acetaminophen 325 Mg Tab) 650 mg PO Q4H PRN PRN Reason: Pain (Mild 1-3)/fever Last Admin: 06/12/21 08:10 Dose: 650 mg Documented by: Acetaminophen (Acetaminophen 325 Mg Tab) 975 mg PO Q8HR [facility] Acetaminophen (Acetaminophen 325 Mg Tab) 650 mg PO Q8H [facility] Last Admin: 06/12/21 11:51 Dose: Not Given Documented by: Acetaminophen (Acetaminophen 325 Mg Tab) 650 mg PO Q8H [facility] Last Admin: 06/16/21 02:16 Dose: Not Given Documented by: Carbidopa/Levodopa (Carbidopa/Levodopa 25-100 Mg Tab) 1 tab PO QID [facility] Last Admin: 06/10/21 16:54 Dose: 1 tab Documented by: Dexamethasone (Dexamethasone 4 Mg/Ml 5 Ml Mdv) 6 mg IV ONETIME ONE Stop: 06/10/21 00:53 Last Admin: 06/10/21 01:31 Dose: 6 mg Documented by: Dexamethasone (Dexamethasone 4 Mg Tab) 6 mg PO DAILY [facility] Stop: 06/18/21 09:01 Last Admin: 06/12/21 08:55 Dose: 6 mg Documented by: Enoxaparin Sodium (Enoxaparin 40 Mg/0.4 Ml Syringe) 40 mg SUBCUT DAILY [facility] Last Admin: 06/14/21 10:24 Dose: 40 mg Documented by: Enoxaparin Sodium (Enoxaparin 100 Mg/1 Ml Syringe) 100 mg SUBCUT Q12H [facility] Last Admin: 06/15/21 22:00 Dose: 100 mg Documented by: Glimepiride (Glimepiride 2 Mg Tab) 4 mg PO DAILY [facility] Last Admin: 06/10/21 09:51 Dose: 4 mg Documented by: Glimepiride (Glimepiride 2 Mg Tab) 2 mg PO WITHBREAKFAST [facility] Last Admin: 06/11/21 06:05 Dose: 2 mg Documented by: Sodium Chloride (Normal Saline) 1,000 mls @ 250 mls/hr IV ONETIME ONE Stop: 06/10/21 01:14 Last Infusion: 06/09/21 21:41 Dose: 250 mls/hr Documented by: Sodium Chloride (Normal Saline) Confirm Administered Dose 1,000 mls @ as directed .ROUTE .STK-MED ONE Stop: 06/09/21 21:19 Last Admin: 06/10/21 01:11 Dose: Not Given Documented by: Remdesivir 200 mg/ Sodium (Chloride) 250 mls @ 250 mls/hr IV ONETIME ONE Stop: 06/10/21 00:53 Last Admin: 06/10/21 01:47 Dose: 250 mls/hr Documented by: Remdesivir 100 mg/ Sodium (Chloride) 100 mls @ 100 mls/hr IV Q24H [facility] Stop: 06/13/21 21:59 Last Admin: 06/13/21 21:19 Dose: 100 mls/hr Documented by: Ceftriaxone Sodium 1 gm/ (Sodium Chloride) 100 mls @ 200 mls/hr IV Q24H [facility] Last Admin: 06/11/21 09:01 Dose: 200 mls/hr Documented by: Ceftriaxone Sodium 2 gm/ (Sodium Chloride) 100 mls @ 200 mls/hr IV Q24H [facility] Stop: 06/16/21 09:29 Last Admin: 06/15/21 09:19 Dose: 200 mls/hr Documented by: Azithromycin 500 mg/ Sodium (Chloride) 250 mls @ 250 mls/hr IV Q24H [facility] Stop: 06/14/21 08:59 Last Admin: 06/14/21 08:49 Dose: 250 mls/hr Documented by: Sodium Chloride (Normal Saline) 100 mls @ 75 mls/hr IV ASDIRECTED [facility] Stop: 06/13/21 13:00 Last Admin: 06/13/21 09:52 Dose: 75 mls/hr Documented by: Lactated Ringer's (Ringers, Lactated) 1,000 mls @ 150 mls/hr IV ASDIRECTED [facility] Last Admin: 06/16/21 06:45 Dose: 150 mls/hr Documented by: Lactated Ringer's (Ringers, Lactated) Confirm Administered Dose 1,000 mls @ as directed .ROUTE .STK-MED ONE Stop: 06/16/21 06:44 Last Admin: 06/16/21 08:07 Dose: Not Given Documented by: Piperacillin Sod/Tazobactam (Sod 4.5 gm/ Sodium Chloride) 100 mls @ 200 mls/hr IV ONETIME ONE Stop: 06/16/21 08:31 Last Admin: 06/16/21 09:13 Dose: 200 mls/hr Documented by: Lactated Ringer's (Ringers, Lactated) 1,000 mls @ 75 mls/hr IV ASDIRECTED [facility] Last Admin: 06/16/21 22:47 Dose: 75 mls/hr Documented by: Insulin Glargine (Insulin Glarg,Human.Rec.Analog 100 Unit/Ml) 24 unit SUBCUT BEDTIME [facility] Insulin Glargine (Insulin Glargine,Hum.Rec.Anlog 100 Unit/Ml 3 Ml Pen) 24 unit SUBCUT BEDTIME [facility] Last Admin: 06/10/21 21:05 Dose: 24 units Documented by: Insulin Glargine (Insulin Glargine,Hum.Rec.Anlog 100 Unit/Ml 3 Ml Pen) 28 unit SUBCUT BEDTIME [facility] Last Admin: 06/11/21 21:21 Dose: 28 units Documented by: Insulin Human Isoph/Insulin Regular (Insulin Nph/Insulin Regular,Human 70-30 100 Units/Ml 10 Ml Vial) 0 units SUBCUT BIDAC [facility]; Protocol Last Admin: 06/10/21 02:36 Dose: Not Given Documented by: Insulin Human Lispro (Insulin Lispro 100 Unit/Ml 3 Ml Kwikpen) 0 unit SUBCUT QIDACANDBED [facility]; Protocol Last Admin: 06/10/21 12:15 Dose: Not Given Documented by: Insulin Human Regular (Insulin Regular, Human 100 Units/Ml 3 Ml Vial) 0 unit SUBCUT TIDPC [facility]; Protocol Last Admin: 06/12/21 09:12 Dose: 6 unit Documented by: Iopamidol (Iopamidol 755 Mg/Ml 100 Ml Bottle) 100 ml IVPUSH ONETIME ONE Stop: 06/09/21 23:54 Last Admin: 06/10/21 00:24 Dose: 100 ml Documented by: Iopamidol (Iopamidol 755 Mg/Ml 100 Ml Bottle) 100 ml IVPUSH ONETIME ONE Stop: 06/13/21 08:56 Last Admin: 06/13/21 09:52 Dose: 100 ml Documented by: Magnesium Hydroxide (Magnesium Hydroxide 400 Mg/5 Ml Susp 30 Ml Cup) 30 ml PO ONETIME ONE Stop: 06/13/21 06:01 Last Admin: 06/13/21 06:18 Dose: 30 ml Documented by: Metformin HCl (Metformin 500 Mg Tab) 1,000 mg PO BIDMEALS [facility] Last Admin: 06/11/21 06:06 Dose: 1,000 mg Documented by: Morphine Sulfate (Morphine 2 Mg/Ml Syringe) 2 mg IVPUSH Q2H PRN PRN Reason: Pain (severe 7-10) Stop: 06/11/21 07:46 Non-Formulary Medication (Tresiba) 24 units SQ ONETIME ONE Stop: 06/10/21 03:46 Last Admin: 06/10/21 03:45 Dose: 24 units Documented by: Carbidopa/Levodopa 25-250 Tab Own Med 1 tab PO 0600,1100,1500,1900,2300 [facility] Last Admin: 06/11/21 05:29 Dose: 1 tab Documented by: Non-Formulary Medication (Sitagliptin Phos/Metformin Hcl [Janumet 50-1,000 Mg]) 1 tab PO BID NALDO Non-Formulary Medication (Non-Formulary Medication 1 Each) 1 each PO BID NALDO Pantoprazole Sodium (Pantoprazole 40 Mg Vial) 80 mg IVPUSH BOLUS ONE Stop: 06/16/21 07:05 Last Admin: 06/16/21 08:03 Dose: 80 mg Documented by: Sodium Chloride (Sodium Chloride 0.9% 10 Ml Syringe) 10 ml FLUSH ONETIME PRN PRN Reason: IV FLUSH Stop: 06/13/21 13:00 Trospium (Trospium 20 Mg Tab) 10 mg PO BID NALDO Last Admin: 06/10/21 21:03 Dose: 10 mg Documented by: - Patient Data Lab Results Last 24 hrs: Laboratory Results - last 24 hr 06/17/21 06/17/21 06/18/21 Range/Units 05:57 21:30 06:20 WBC 12.20 H (4.23-9.07) K/mm3 RBC 4.54 L (4.63-6.08) M/mm3 Hgb 13.9 (13.7-17.5) gm/dl Hct 44.0 (40.1-51.0) % MCV 96.9 H (79.0-92.2) fl MCH 30.6 (25.7-32.2) pg MCHC 31.6 L (32.2-35.5) g/dl RDW Std Deviation 49.1 H (35.1-43.9) fL Plt Count 167 (163-337) K/mm3 MPV 9.7 (9.4-12.3) fl Neut % (Auto) 91.0 H (34.0-67.9) % Lymph % (Auto) 3.4 L (21.8-53.1) % [place] % (Auto) 4.8 L (5.3-12.2) % Eos % (Auto) 0.2 L (0.8-7.0) Baso % (Auto) 0.0 L (0.1-1.2) % Neut # (Auto) 11.11 H (1.78-5.38) K/mm3 Lymph # (Auto) 0.42 L (1.32-3.57) K/mm3 [place] # (Auto) 0.58 (0.30-0.82) K/mm3 Eos # (Auto) 0.02 L (0.04-0.54) K/mm3 Baso # (Auto) 0.00 L (0.01-0.08) K/mm3 Manual Slide Review Abnormal smear PT (9.7-12.0) SECONDS INR APTT (21.7-31.4) SECONDS D-Dimer, Quantitative (0.19-0.50) mg/L Sodium (136-145) mEq/L Potassium (3.5-5.1) mEq/L Chloride (98-107) mEq/L Carbon Dioxide (21-32) mEq/L Anion Gap (5-15) BUN (7-18) mg/dL Creatinine (0.7-1.3) mg/dL Est Cr Clr Drug Dosing mL/min Estimated GFR (MDRD) (>60) mL/min BUN/Creatinine Ratio (14-18) Glucose (70-99) mg/dL POC Glucose 255 H (70-99) mg/dL Calcium (8.5-10.1) mg/dL Magnesium (1.8-2.4) mg/dL Total Bilirubin (0.2-1.0) mg/dL AST (15-37) U/L ALT (16-63) U/L Alkaline Phosphatase (46-116) U/L CK-MB (CK-2) (0-3.6) ng/ml Troponin I (0.00-0.056) ng/mL C-Reactive Protein (<1.0) mg/dL Total Protein (6.4-8.2) g/dl Albumin (3.4-5.0) g/dl Globulin gm/dL Albumin/Globulin Ratio (1-2) Procalcitonin 0.26 H ng/mL 06/18/21 06/18/21 06/18/21 Range/Units 06:20 06:20 06:21 WBC (4.23-9.07) K/mm3 RBC (4.63-6.08) M/mm3 Hgb (13.7-17.5) gm/dl Hct (40.1-51.0) % MCV (79.0-92.2) fl MCH (25.7-32.2) pg MCHC (32.2-35.5) g/dl RDW Std Deviation (35.1-43.9) fL Plt Count (163-337) K/mm3 MPV (9.4-12.3) fl Neut % (Auto) (34.0-67.9) % Lymph % (Auto) (21.8-53.1) % [place] % (Auto) (5.3-12.2) % Eos % (Auto) (0.8-7.0) Baso % (Auto) (0.1-1.2) % Neut # (Auto) (1.78-5.38) K/mm3 Lymph # (Auto) (1.32-3.57) K/mm3 [place] # (Auto) (0.30-0.82) K/mm3 Eos # (Auto) (0.04-0.54) K/mm3 Baso # (Auto) (0.01-0.08) K/mm3 Manual Slide Review PT (9.7-12.0) SECONDS INR APTT (21.7-31.4) SECONDS D-Dimer, Quantitative (0.19-0.50) mg/L Sodium 141 (136-145) mEq/L Potassium 4.8 (3.5-5.1) mEq/L Chloride 104 (98-107) mEq/L Carbon Dioxide 32 (21-32) mEq/L Anion Gap 9.8 (5-15) BUN 30 H (7-18) mg/dL Creatinine 1.0 (0.7-1.3) mg/dL Est Cr Clr Drug Dosing 77.63 mL/min Estimated GFR (MDRD) > 60 (>60) mL/min BUN/Creatinine Ratio 30.0 H (14-18) Glucose 176 H (70-99) mg/dL POC Glucose 172 H (70-99) mg/dL Calcium 8.5 (8.5-10.1) mg/dL Magnesium 2.3 (1.8-2.4) mg/dL Total Bilirubin 0.5 (0.2-1.0) mg/dL AST 27 (15-37) U/L ALT 10 L (16-63) U/L Alkaline Phosphatase 44 L (46-116) U/L CK-MB (CK-2) 4.2 H (0-3.6) ng/ml Troponin I < 0.017 (0.00-0.056) ng/mL C-Reactive Protein 6.9 H* (<1.0) mg/dL Total Protein 6.0 L (6.4-8.2) g/dl Albumin 2.2 L (3.4-5.0) g/dl Globulin 3.8 gm/dL Albumin/Globulin Ratio 0.6 L (1-2) Procalcitonin ng/mL 06/18/21 06/18/21 06/18/21 Range/Units 10:23 11:03 11:09 WBC (4.23-9.07) K/mm3 RBC (4.63-6.08) M/mm3 Hgb (13.7-17.5) gm/dl Hct (40.1-51.0) % MCV (79.0-92.2) fl MCH (25.7-32.2) pg MCHC (32.2-35.5) g/dl RDW Std Deviation (35.1-43.9) fL Plt Count (163-337) K/mm3 MPV (9.4-12.3) fl Neut % (Auto) (34.0-67.9) % Lymph % (Auto) (21.8-53.1) % [place] % (Auto) (5.3-12.2) % Eos % (Auto) (0.8-7.0) Baso % (Auto) (0.1-1.2) % Neut # (Auto) (1.78-5.38) K/mm3 Lymph # (Auto) (1.32-3.57) K/mm3 [place] # (Auto) (0.30-0.82) K/mm3 Eos # (Auto) (0.04-0.54) K/mm3 Baso # (Auto) (0.01-0.08) K/mm3 Manual Slide Review PT 11.6 (9.7-12.0) SECONDS INR 1.05 APTT (21.7-31.4) SECONDS D-Dimer, Quantitative 25.45 H (0.19-0.50) mg/L Sodium (136-145) mEq/L Potassium (3.5-5.1) mEq/L Chloride (98-107) mEq/L Carbon Dioxide (21-32) mEq/L Anion Gap (5-15) BUN (7-18) mg/dL Creatinine (0.7-1.3) mg/dL Est Cr Clr Drug Dosing mL/min Estimated GFR (MDRD) (>60) mL/min BUN/Creatinine Ratio (14-18) Glucose (70-99) mg/dL POC Glucose 302 H (70-99) mg/dL Calcium (8.5-10.1) mg/dL Magnesium (1.8-2.4) mg/dL Total Bilirubin (0.2-1.0) mg/dL AST (15-37) U/L ALT (16-63) U/L Alkaline Phosphatase (46-116) U/L CK-MB (CK-2) (0-3.6) ng/ml Troponin I (0.00-0.056) ng/mL C-Reactive Protein (<1.0) mg/dL Total Protein (6.4-8.2) g/dl Albumin (3.4-5.0) g/dl Globulin gm/dL Albumin/Globulin Ratio (1-2) Procalcitonin ng/mL 06/18/21 06/18/21 06/18/21 Range/Units 11:13 17:02 18:08 WBC (4.23-9.07) K/mm3 RBC (4.63-6.08) M/mm3 Hgb (13.7-17.5) gm/dl Hct (40.1-51.0) % MCV (79.0-92.2) fl MCH (25.7-32.2) pg MCHC (32.2-35.5) g/dl RDW Std Deviation (35.1-43.9) fL Plt Count (163-337) K/mm3 MPV (9.4-12.3) fl Neut % (Auto) (34.0-67.9) % Lymph % (Auto) (21.8-53.1) % [place] % (Auto) (5.3-12.2) % Eos % (Auto) (0.8-7.0) Baso % (Auto) (0.1-1.2) % Neut # (Auto) (1.78-5.38) K/mm3 Lymph # (Auto) (1.32-3.57) K/mm3 [place] # (Auto) (0.30-0.82) K/mm3 Eos # (Auto) (0.04-0.54) K/mm3 Baso # (Auto) (0.01-0.08) K/mm3 Manual Slide Review PT (9.7-12.0) SECONDS INR APTT 25.1 37.2 H (21.7-31.4) SECONDS D-Dimer, Quantitative (0.19-0.50) mg/L Sodium (136-145) mEq/L Potassium (3.5-5.1) mEq/L Chloride (98-107) mEq/L Carbon Dioxide (21-32) mEq/L Anion Gap (5-15) BUN (7-18) mg/dL Creatinine (0.7-1.3) mg/dL Est Cr Clr Drug Dosing mL/min Estimated GFR (MDRD) (>60) mL/min BUN/Creatinine Ratio (14-18) Glucose (70-99) mg/dL POC Glucose 257 H (70-99) mg/dL Calcium (8.5-10.1) mg/dL Magnesium (1.8-2.4) mg/dL Total Bilirubin (0.2-1.0) mg/dL AST (15-37) U/L ALT (16-63) U/L Alkaline Phosphatase (46-116) U/L CK-MB (CK-2) (0-3.6) ng/ml Troponin I (0.00-0.056) ng/mL C-Reactive Protein (<1.0) mg/dL Total Protein (6.4-8.2) g/dl Albumin (3.4-5.0) g/dl Globulin gm/dL Albumin/Globulin Ratio (1-2) Procalcitonin ng/mL Result Diagrams: 06/18/21 06:20 06/18/21 06:20 Sepsis Event Note - Focused Exam Vital Signs: Vital Signs Temp Pulse Resp BP Pulse Ox Pulse Ox 06/18/21 16:29 92 L 06/18/21 15:15 97.5 F 75 20 127/91 H 91 L 06/18/21 14:22 94 L 06/18/21 12:13 91 L 06/18/21 11:15 98.4 F 76 24 H 131/61 94 L 06/18/21 09:54 91 L 06/18/21 09:51 74 L 06/18/21 08:27 91 L 06/18/21 08:08 98.2 F 100 24 H 94 L 06/18/21 08:00 101 H 94 L - Plan Plan:: Case discussed in full. Agree with evaluation, assessment and plan
[2021-06-18] MEDS: Finasteride 5 MG Tab PO SCH (08:11)
[2021-06-18] MEDS: Zinc Sulfate 220 MG Cap PO SCH (08:11)
[2021-06-18] MEDS: Trospium 20 MG Tab PO SCH ×2 (08:12→22:23)
[2021-06-18] MEDS: Insulin Regular, Human 100 Units/ML 3 ML Vial SUBCUT SCH ×4 (08:12→22:24)
[2021-06-18] MEDS: Piperacillin/Tazobactam 4.5 GM in Sodium Chloride 0.9% 100 ML IV SCH ×2 (08:12→15:08)
[2021-06-18] MEDS: Ascorbic Acid 500 MG Tab PO SCH (08:12)
[2021-06-18] MEDS: Dexamethasone 4 MG Tab PO SCH ×2 (08:12→22:22)
[2021-06-18] MEDS: Albuterol/Ipratropium 3.0-0.5 MG/3 ML Neb Soln NEB PRN ×3 (08:27→21:08)
[2021-06-18] MEDS: Heparin Sodium/D5W 25,000 UNITS/500 ML BAG IV SCH (12:37)
[2021-06-18] MEDS: Tamsulosin 0.4 MG Cap.ER PO SCH (22:22)
[2021-06-18] MEDS: Melatonin 3 MG Tab PO SCH (22:23)
[2021-06-18] MEDS: Insulin Glargine,Hum.Rec.Anlog 100 UNIT/ML 3 ML Pen SUBCUT SCH (22:23)
[2021-06-19] MEDS: Trolamine Salicylate/Aloe Vera 10% Crm 85 GM Tube TOP PRN (00:55)
[2021-06-19] MEDS: Piperacillin/Tazobactam 4.5 GM in Sodium Chloride 0.9% 100 ML IV SCH ×4 (00:55→23:38)
[2021-06-19] MEDS: CARBIDOPA PO SCH ×5 (07:14→23:38)
[2021-06-19] MEDS: Levothyroxine 50 MCG Tab PO SCH (07:14)
[2021-06-19] MEDS: LEVODOPA PO SCH ×5 (07:14→23:38)
[2021-06-19] MEDS: Acetaminophen 325 MG Tab PO SCH ×3 (07:14→21:29)
--- NOTE | 2021-06-19 07:33 | PCM.PN ---
<Bryn Bello - Last Filed: 06/19/21 11:35> - General Info Date of Service: 06/19/21 Admission Dx/Problem (Free Text): Admission Diagnosis/Problem Admission Diagnosis/Problem acute respiratory failure due to COVID-19 pneumonia. Functional Status: Reports: Pain Controlled, Tolerating Diet, Ambulating, Urinating, Incentive Spirometry, Other (Acapella ). Denies: New Symptoms - Review of Systems General: Reports: Weakness. Denies: Fever, Fatigue, Malaise, Chills HEENT: Reports: No Symptoms. Denies: Headaches, Sore Throat Pulmonary: Reports: Shortness of Breath, Cough. Denies: Pleuritic Chest Pain, Sputum, Wheezing Cardiovascular: Reports: No Symptoms, Dyspnea on Exertion. Denies: Chest Pain, Palpitations, Edema Gastrointestinal: Reports: No Symptoms. Denies: Abdominal Pain, Constipation, Diarrhea, Nausea, Vomiting Genitourinary: Reports: No Symptoms. Denies: Pain Musculoskeletal: Reports: Joint Pain (chronic knee pain ) Skin: Reports: No Symptoms. Denies: Cyanosis Neurological: Reports: Pre-Existing Deficit (Parkinson's disease), Difficulty Walking, Weakness, Gait Disturbance. Denies: Confusion, Dizziness, Headache, Numbness, Seizure, Syncope, Tingling Psychiatric: Reports: No Symptoms - Patient Data Vitals - Most Recent: Last Vital Signs Temp 96.8 F L 06/19/21 04:29 Pulse 54 L 06/19/21 04:29 Resp 20 06/19/21 04:27 BP 168/104 H 06/19/21 04:29 Pulse Ox 96 06/19/21 05:50 Weight - Most Recent: 232 lb 6.4 oz I&O - Last 24 Hours: Intake & Output 06/18/21 06/19/21 06/19/21 22:59 06:59 14:59 Intake Total 1520 770 Output Total 500 Balance 1520 270 Lab Results Last 24 Hours: Laboratory Results - last 24 hr 06/17/21 06/18/21 06/18/21 Range/Units 05:57 06:20 06:20 WBC 12.20 H (4.23-9.07) K/mm3 RBC 4.54 L (4.63-6.08) M/mm3 Hgb 13.9 (13.7-17.5) gm/dl Hct 44.0 (40.1-51.0) % MCV 96.9 H (79.0-92.2) fl MCH 30.6 (25.7-32.2) pg MCHC 31.6 L (32.2-35.5) g/dl RDW Std Deviation 49.1 H (35.1-43.9) fL Plt Count 167 (163-337) K/mm3 MPV 9.7 (9.4-12.3) fl Neut % (Auto) 91.0 H (34.0-67.9) % Lymph % (Auto) 3.4 L (21.8-53.1) % [place] % (Auto) 4.8 L (5.3-12.2) % Eos % (Auto) 0.2 L (0.8-7.0) Baso % (Auto) 0.0 L (0.1-1.2) % Neut # (Auto) 11.11 H (1.78-5.38) K/mm3 Lymph # (Auto) 0.42 L (1.32-3.57) K/mm3 [place] # (Auto) 0.58 (0.30-0.82) K/mm3 Eos # (Auto) 0.02 L (0.04-0.54) K/mm3 Baso # (Auto) 0.00 L (0.01-0.08) K/mm3 Manual Slide Review Abnormal smear PT (9.7-12.0) SECONDS INR APTT (21.7-31.4) SECONDS D-Dimer, Quantitative (0.19-0.50) mg/L Sodium 141 (136-145) mEq/L Potassium 4.8 (3.5-5.1) mEq/L Chloride 104 (98-107) mEq/L Carbon Dioxide 32 (21-32) mEq/L Anion Gap 9.8 (5-15) BUN 30 H (7-18) mg/dL Creatinine 1.0 (0.7-1.3) mg/dL Est Cr Clr Drug Dosing 77.63 mL/min Estimated GFR (MDRD) > 60 (>60) mL/min BUN/Creatinine Ratio 30.0 H (14-18) Glucose 176 H (70-99) mg/dL POC Glucose (70-99) mg/dL Calcium 8.5 (8.5-10.1) mg/dL Magnesium 2.3 (1.8-2.4) mg/dL Total Bilirubin 0.5 (0.2-1.0) mg/dL AST 27 (15-37) U/L ALT 10 L (16-63) U/L Alkaline Phosphatase 44 L (46-116) U/L CK-MB (CK-2) (0-3.6) ng/ml Troponin I (0.00-0.056) ng/mL C-Reactive Protein 6.9 H* (<1.0) mg/dL Total Protein 6.0 L (6.4-8.2) g/dl Albumin 2.2 L (3.4-5.0) g/dl Globulin 3.8 gm/dL Albumin/Globulin Ratio 0.6 L (1-2) Procalcitonin 0.26 H ng/mL 06/18/21 06/18/21 06/18/21 Range/Units 06:20 10:23 11:03 WBC (4.23-9.07) K/mm3 RBC (4.63-6.08) M/mm3 Hgb (13.7-17.5) gm/dl Hct (40.1-51.0) % MCV (79.0-92.2) fl MCH (25.7-32.2) pg MCHC (32.2-35.5) g/dl RDW Std Deviation (35.1-43.9) fL Plt Count (163-337) K/mm3 MPV (9.4-12.3) fl Neut % (Auto) (34.0-67.9) % Lymph % (Auto) (21.8-53.1) % [place] % (Auto) (5.3-12.2) % Eos % (Auto) (0.8-7.0) Baso % (Auto) (0.1-1.2) % Neut # (Auto) (1.78-5.38) K/mm3 Lymph # (Auto) (1.32-3.57) K/mm3 [place] # (Auto) (0.30-0.82) K/mm3 Eos # (Auto) (0.04-0.54) K/mm3 Baso # (Auto) (0.01-0.08) K/mm3 Manual Slide Review PT 11.6 (9.7-12.0) SECONDS INR 1.05 APTT (21.7-31.4) SECONDS D-Dimer, Quantitative 25.45 H (0.19-0.50) mg/L Sodium (136-145) mEq/L Potassium (3.5-5.1) mEq/L Chloride (98-107) mEq/L Carbon Dioxide (21-32) mEq/L Anion Gap (5-15) BUN (7-18) mg/dL Creatinine (0.7-1.3) mg/dL Est Cr Clr Drug Dosing mL/min Estimated GFR (MDRD) (>60) mL/min BUN/Creatinine Ratio (14-18) Glucose (70-99) mg/dL POC Glucose (70-99) mg/dL Calcium (8.5-10.1) mg/dL Magnesium (1.8-2.4) mg/dL Total Bilirubin (0.2-1.0) mg/dL AST (15-37) U/L ALT (16-63) U/L Alkaline Phosphatase (46-116) U/L CK-MB (CK-2) 4.2 H (0-3.6) ng/ml Troponin I < 0.017 (0.00-0.056) ng/mL C-Reactive Protein (<1.0) mg/dL Total Protein (6.4-8.2) g/dl Albumin (3.4-5.0) g/dl Globulin gm/dL Albumin/Globulin Ratio (1-2) Procalcitonin ng/mL 06/18/21 06/18/21 06/18/21 Range/Units 11:09 11:13 17:02 WBC (4.23-9.07) K/mm3 RBC (4.63-6.08) M/mm3 Hgb (13.7-17.5) gm/dl Hct (40.1-51.0) % MCV (79.0-92.2) fl MCH (25.7-32.2) pg MCHC (32.2-35.5) g/dl RDW Std Deviation (35.1-43.9) fL Plt Count (163-337) K/mm3 MPV (9.4-12.3) fl Neut % (Auto) (34.0-67.9) % Lymph % (Auto) (21.8-53.1) % [place] % (Auto) (5.3-12.2) % Eos % (Auto) (0.8-7.0) Baso % (Auto) (0.1-1.2) % Neut # (Auto) (1.78-5.38) K/mm3 Lymph # (Auto) (1.32-3.57) K/mm3 [place] # (Auto) (0.30-0.82) K/mm3 Eos # (Auto) (0.04-0.54) K/mm3 Baso # (Auto) (0.01-0.08) K/mm3 Manual Slide Review PT (9.7-12.0) SECONDS INR APTT 25.1 (21.7-31.4) SECONDS D-Dimer, Quantitative (0.19-0.50) mg/L Sodium (136-145) mEq/L Potassium (3.5-5.1) mEq/L Chloride (98-107) mEq/L Carbon Dioxide (21-32) mEq/L Anion Gap (5-15) BUN (7-18) mg/dL Creatinine (0.7-1.3) mg/dL Est Cr Clr Drug Dosing mL/min Estimated GFR (MDRD) (>60) mL/min BUN/Creatinine Ratio (14-18) Glucose (70-99) mg/dL POC Glucose 302 H 257 H (70-99) mg/dL Calcium (8.5-10.1) mg/dL Magnesium (1.8-2.4) mg/dL Total Bilirubin (0.2-1.0) mg/dL AST (15-37) U/L ALT (16-63) U/L Alkaline Phosphatase (46-116) U/L CK-MB (CK-2) (0-3.6) ng/ml Troponin I (0.00-0.056) ng/mL C-Reactive Protein (<1.0) mg/dL Total Protein (6.4-8.2) g/dl Albumin (3.4-5.0) g/dl Globulin gm/dL Albumin/Globulin Ratio (1-2) Procalcitonin ng/mL 06/18/21 06/18/21 06/19/21 Range/Units 18:08 22:20 00:14 WBC (4.23-9.07) K/mm3 RBC (4.63-6.08) M/mm3 Hgb (13.7-17.5) gm/dl Hct (40.1-51.0) % MCV (79.0-92.2) fl MCH (25.7-32.2) pg MCHC (32.2-35.5) g/dl RDW Std Deviation (35.1-43.9) fL Plt Count (163-337) K/mm3 MPV (9.4-12.3) fl Neut % (Auto) (34.0-67.9) % Lymph % (Auto) (21.8-53.1) % [place] % (Auto) (5.3-12.2) % Eos % (Auto) (0.8-7.0) Baso % (Auto) (0.1-1.2) % Neut # (Auto) (1.78-5.38) K/mm3 Lymph # (Auto) (1.32-3.57) K/mm3 [place] # (Auto) (0.30-0.82) K/mm3 Eos # (Auto) (0.04-0.54) K/mm3 Baso # (Auto) (0.01-0.08) K/mm3 Manual Slide Review PT (9.7-12.0) SECONDS INR APTT 37.2 H 52.2 H (21.7-31.4) SECONDS D-Dimer, Quantitative (0.19-0.50) mg/L Sodium (136-145) mEq/L Potassium (3.5-5.1) mEq/L Chloride (98-107) mEq/L Carbon Dioxide (21-32) mEq/L Anion Gap (5-15) BUN (7-18) mg/dL Creatinine (0.7-1.3) mg/dL Est Cr Clr Drug Dosing mL/min Estimated GFR (MDRD) (>60) mL/min BUN/Creatinine Ratio (14-18) Glucose (70-99) mg/dL POC Glucose 190 H (70-99) mg/dL Calcium (8.5-10.1) mg/dL Magnesium (1.8-2.4) mg/dL Total Bilirubin (0.2-1.0) mg/dL AST (15-37) U/L ALT (16-63) U/L Alkaline Phosphatase (46-116) U/L CK-MB (CK-2) (0-3.6) ng/ml Troponin I (0.00-0.056) ng/mL C-Reactive Protein (<1.0) mg/dL Total Protein (6.4-8.2) g/dl Albumin (3.4-5.0) g/dl Globulin gm/dL Albumin/Globulin Ratio (1-2) Procalcitonin ng/mL 06/19/21 06/19/21 06/19/21 Range/Units 06:45 06:45 07:21 WBC 10.62 H (4.23-9.07) K/mm3 RBC 4.34 L (4.63-6.08) M/mm3 Hgb 13.4 L (13.7-17.5) gm/dl Hct 41.3 (40.1-51.0) % MCV 95.2 H (79.0-92.2) fl MCH 30.9 (25.7-32.2) pg MCHC 32.4 (32.2-35.5) g/dl RDW Std Deviation 47.0 H (35.1-43.9) fL Plt Count 153 L (163-337) K/mm3 MPV 10.2 (9.4-12.3) fl Neut % (Auto) 93.6 H (34.0-67.9) % Lymph % (Auto) 2.9 L (21.8-53.1) % [place] % (Auto) 2.7 L (5.3-12.2) % Eos % (Auto) 0.1 L (0.8-7.0) Baso % (Auto) 0.1 (0.1-1.2) % Neut # (Auto) 9.94 H (1.78-5.38) K/mm3 Lymph # (Auto) 0.31 L (1.32-3.57) K/mm3 [place] # (Auto) 0.29 L (0.30-0.82) K/mm3 Eos # (Auto) 0.01 L (0.04-0.54) K/mm3 Baso # (Auto) 0.01 (0.01-0.08) K/mm3 Manual Slide Review Abnormal smear PT (9.7-12.0) SECONDS INR APTT 35.5 H (21.7-31.4) SECONDS D-Dimer, Quantitative (0.19-0.50) mg/L Sodium (136-145) mEq/L Potassium (3.5-5.1) mEq/L Chloride (98-107) mEq/L Carbon Dioxide (21-32) mEq/L Anion Gap (5-15) BUN (7-18) mg/dL Creatinine (0.7-1.3) mg/dL Est Cr Clr Drug Dosing mL/min Estimated GFR (MDRD) (>60) mL/min BUN/Creatinine Ratio (14-18) Glucose (70-99) mg/dL POC Glucose 180 H (70-99) mg/dL Calcium (8.5-10.1) mg/dL Magnesium (1.8-2.4) mg/dL Total Bilirubin (0.2-1.0) mg/dL AST (15-37) U/L ALT (16-63) U/L Alkaline Phosphatase (46-116) U/L CK-MB (CK-2) (0-3.6) ng/ml Troponin I (0.00-0.056) ng/mL C-Reactive Protein (<1.0) mg/dL Total Protein (6.4-8.2) g/dl Albumin (3.4-5.0) g/dl Globulin gm/dL Albumin/Globulin Ratio (1-2) Procalcitonin ng/mL Med Orders - Current: Current Medications Acetaminophen (Acetaminophen 325 Mg Tab) 650 mg PO Q8H [facility] Last Admin: 06/19/21 07:14 Dose: 650 mg Documented by: Al Hydroxide/Mg Hydroxide (Aluminum Hydroxide/Magnesium Hydroxide/Simethicone Susp 30 Ml Cup) 30 ml PO Q4H PRN PRN Reason: Heartburn Last Admin: 06/14/21 21:37 Dose: 30 ml Documented by: Albuterol (Albuterol 6.7 Gm Inhaler) 0 gm INH QID PRN PRN Reason: SOB/Wheezing Albuterol/Ipratropium (Albuterol/Ipratropium 3.0-0.5 Mg/3 Ml Neb Soln) 3 ml NEB Q4H PRN PRN Reason: Shortness Of Breath/wheezing Last Admin: 06/18/21 21:08 Dose: 3 ml Documented by: Alogliptin Benzoate (Alogliptin 12.5 Mg Tab) 12.5 mg PO BIDMEALS [facility] Last Admin: 06/19/21 07:14 Dose: 12.5 mg Documented by: Ascorbic Acid (Ascorbic Acid 500 Mg Tab) 500 mg PO DAILY [facility] Last Admin: 06/18/21 08:12 Dose: 500 mg Documented by: Baricitinib (Baricitinib 2 Mg Tab) 4 mg PO DAILY [facility] Stop: 06/26/21 09:01 Last Admin: 06/18/21 08:12 Dose: 4 mg Documented by: Dexamethasone (Dexamethasone 4 Mg Tab) 6 mg PO BID [facility] Last Admin: 06/18/21 22:22 Dose: 6 mg Documented by: Docusate Sodium (Docusate Sodium 100 Mg Cap) 100 mg PO BID PRN PRN Reason: Constipation Last Admin: 06/14/21 12:07 Dose: 100 mg Documented by: Finasteride (Finasteride 5 Mg Tab) 5 mg PO DAILY [facility] Last Admin: 06/18/21 08:11 Dose: 5 mg Documented by: Guaifenesin/Phenylephrine HCl (Guaifenesin/Dextromethorphan 100-10 Mg/5 Ml Soln 5 Ml Cup) 10 ml PO Q6H PRN PRN Reason: Cough Piperacillin Sod/Tazobactam (Sod 4.5 gm/ Sodium Chloride) 100 mls @ 25 mls/hr IV Q8H [facility] Last Admin: 06/19/21 00:55 Dose: 25 mls/hr Documented by: Heparin Sodium/Dextrose (Heparin 25,000 Units In D5w 500 Ml) 25,000 units in 500 mls @ 26 mls/hr IV TITRATE [facility]; Protocol Last Titration: 06/18/21 18:48 Dose: 30 ml/hr, 30 mls/hr Documented by: Insulin Glargine (Insulin Glargine,Hum.Rec.Anlog 100 Unit/Ml 3 Ml Pen) 32 unit SUBCUT BEDTIME [facility] Last Admin: 06/18/21 22:23 Dose: 32 unit Documented by: Insulin Human Regular (Insulin Regular, Human 100 Units/Ml 3 Ml Vial) 0 unit SUBCUT QIDACANDBED [facility]; Protocol Last Admin: 06/18/21 22:24 Dose: 3 unit Documented by: Levothyroxine Sodium (Levothyroxine 50 Mcg Tab) 50 mcg PO ACBREAKFAST [facility] Last Admin: 06/19/21 07:14 Dose: 50 mcg Documented by: Melatonin (Melatonin 3 Mg Tab) 6 mg PO BEDTIME [facility] Last Admin: 06/18/21 22:23 Dose: 6 mg Documented by: Carbidopa/Levodopa 25-250 Tab Own Med 1 tab PO 0600,1100,1500,1900,2300 [facility] Last Admin: 06/19/21 07:14 Dose: 1 tab Documented by: Ondansetron HCl (Ondansetron 4 Mg Tab.Dis) 4 mg PO Q4H PRN PRN Reason: nausea, able to take PO Oxycodone HCl (Oxycodone 5 Mg Tab) 5 mg PO Q4H PRN PRN Reason: Pain (moderate 4-6) Last Admin: 06/16/21 17:59 Dose: 5 mg Documented by: Sodium Chloride (Sodium Chloride 0.9% 10 Ml Syringe) 10 ml FLUSH ASDIRECTED PRN PRN Reason: Keep Vein Open Last Admin: 06/10/21 00:24 Dose: 10 ml Documented by: Tamsulosin HCl (Tamsulosin 0.4 Mg Cap.Er) 0.4 mg PO BEDTIME [facility] Last Admin: 06/18/21 22:22 Dose: 0.4 mg Documented by: Temazepam (Temazepam 15 Mg Cap) 15 mg PO BEDTIME PRN PRN Reason: Sleep Last Admin: 06/13/21 21:18 Dose: 15 mg Documented by: Trolamine Salicylate (Trolamine Salicylate/Aloe Vera 10% Crm 85 Gm Tube) 1 gm TOP Q2H PRN PRN Reason: Pain (moderate 4-6) Last Admin: 06/19/21 00:55 Dose: 1 applic Documented by: Trospium (Trospium 20 Mg Tab) 20 mg PO BID [facility] Last Admin: 06/18/21 22:23 Dose: 20 mg Documented by: Zinc Sulfate (Zinc Sulfate 220 Mg Cap) 220 mg PO DAILY [facility] Last Admin: 06/18/21 08:11 Dose: 220 mg Documented by: Discontinued Medications Acetaminophen (Acetaminophen 325 Mg Tab) 975 mg PO NOW ONE Stop: 06/09/21 21:16 Last Admin: 06/09/21 21:41 Dose: 350 mg Documented by: Acetaminophen (Acetaminophen 650 Mg Supp) 650 mg RECTAL NOW ONE Stop: 06/09/21 21:52 Last Admin: 06/09/21 22:30 Dose: 650 mg Documented by: Acetaminophen (Acetaminophen 325 Mg Tab) 650 mg PO Q4H PRN PRN Reason: Pain (Mild 1-3)/fever Last Admin: 06/12/21 08:10 Dose: 650 mg Documented by: Acetaminophen (Acetaminophen 325 Mg Tab) 975 mg PO Q8HR [facility] Acetaminophen (Acetaminophen 325 Mg Tab) 650 mg PO Q8H [facility] Last Admin: 06/12/21 11:51 Dose: Not Given Documented by: Acetaminophen (Acetaminophen 325 Mg Tab) 650 mg PO Q8H [facility] Last Admin: 06/16/21 02:16 Dose: Not Given Documented by: Carbidopa/Levodopa (Carbidopa/Levodopa 25-100 Mg Tab) 1 tab PO QID [facility] Last Admin: 06/10/21 16:54 Dose: 1 tab Documented by: Dexamethasone (Dexamethasone 4 Mg/Ml 5 Ml Mdv) 6 mg IV ONETIME ONE Stop: 06/10/21 00:53 Last Admin: 06/10/21 01:31 Dose: 6 mg Documented by: Dexamethasone (Dexamethasone 4 Mg Tab) 6 mg PO DAILY [facility] Stop: 06/18/21 09:01 Last Admin: 06/12/21 08:55 Dose: 6 mg Documented by: Enoxaparin Sodium (Enoxaparin 40 Mg/0.4 Ml Syringe) 40 mg SUBCUT DAILY [facility] Last Admin: 06/14/21 10:24 Dose: 40 mg Documented by: Enoxaparin Sodium (Enoxaparin 100 Mg/1 Ml Syringe) 100 mg SUBCUT Q12H [facility] Last Admin: 06/15/21 22:00 Dose: 100 mg Documented by: Glimepiride (Glimepiride 2 Mg Tab) 4 mg PO DAILY [facility] Last Admin: 06/10/21 09:51 Dose: 4 mg Documented by: Glimepiride (Glimepiride 2 Mg Tab) 2 mg PO WITHBREAKFAST [facility] Last Admin: 06/11/21 06:05 Dose: 2 mg Documented by: Sodium Chloride (Normal Saline) 1,000 mls @ 250 mls/hr IV ONETIME ONE Stop: 06/10/21 01:14 Last Infusion: 06/09/21 21:41 Dose: 250 mls/hr Documented by: Sodium Chloride (Normal Saline) Confirm Administered Dose 1,000 mls @ as directed .ROUTE .STK-MED ONE Stop: 06/09/21 21:19 Last Admin: 06/10/21 01:11 Dose: Not Given Documented by: Remdesivir 200 mg/ Sodium (Chloride) 250 mls @ 250 mls/hr IV ONETIME ONE Stop: 06/10/21 00:53 Last Admin: 06/10/21 01:47 Dose: 250 mls/hr Documented by: Remdesivir 100 mg/ Sodium (Chloride) 100 mls @ 100 mls/hr IV Q24H [facility] Stop: 06/13/21 21:59 Last Admin: 06/13/21 21:19 Dose: 100 mls/hr Documented by: Ceftriaxone Sodium 1 gm/ (Sodium Chloride) 100 mls @ 200 mls/hr IV Q24H [facility] Last Admin: 06/11/21 09:01 Dose: 200 mls/hr Documented by: Ceftriaxone Sodium 2 gm/ (Sodium Chloride) 100 mls @ 200 mls/hr IV Q24H [facility] Stop: 06/16/21 09:29 Last Admin: 06/15/21 09:19 Dose: 200 mls/hr Documented by: Azithromycin 500 mg/ Sodium (Chloride) 250 mls @ 250 mls/hr IV Q24H [facility] Stop: 06/14/21 08:59 Last Admin: 06/14/21 08:49 Dose: 250 mls/hr Documented by: Sodium Chloride (Normal Saline) 100 mls @ 75 mls/hr IV ASDIRECTED [facility] Stop: 06/13/21 13:00 Last Admin: 06/13/21 09:52 Dose: 75 mls/hr Documented by: Lactated Ringer's (Ringers, Lactated) 1,000 mls @ 150 mls/hr IV ASDIRECTED [facility] Last Admin: 06/16/21 06:45 Dose: 150 mls/hr Documented by: Lactated Ringer's (Ringers, Lactated) Confirm Administered Dose 1,000 mls @ as directed .ROUTE .STK-MED ONE Stop: 06/16/21 06:44 Last Admin: 06/16/21 08:07 Dose: Not Given Documented by: Piperacillin Sod/Tazobactam (Sod 4.5 gm/ Sodium Chloride) 100 mls @ 200 mls/hr IV ONETIME ONE Stop: 06/16/21 08:31 Last Admin: 06/16/21 09:13 Dose: 200 mls/hr Documented by: Lactated Ringer's (Ringers, Lactated) 1,000 mls @ 75 mls/hr IV ASDIRECTED [facility] Last Admin: 06/16/21 22:47 Dose: 75 mls/hr Documented by: Insulin Glargine (Insulin Glarg,Human.Rec.Analog 100 Unit/Ml) 24 unit SUBCUT BEDTIME [facility] Insulin Glargine (Insulin Glargine,Hum.Rec.Anlog 100 Unit/Ml 3 Ml Pen) 24 unit SUBCUT BEDTIME [facility] Last Admin: 06/10/21 21:05 Dose: 24 units Documented by: Insulin Glargine (Insulin Glargine,Hum.Rec.Anlog 100 Unit/Ml 3 Ml Pen) 28 unit SUBCUT BEDTIME [facility] Last Admin: 06/11/21 21:21 Dose: 28 units Documented by: Insulin Human Isoph/Insulin Regular (Insulin Nph/Insulin Regular,Human 70-30 100 Units/Ml 10 Ml Vial) 0 units SUBCUT BIDAC [facility]; Protocol Last Admin: 06/10/21 02:36 Dose: Not Given Documented by: Insulin Human Lispro (Insulin Lispro 100 Unit/Ml 3 Ml Kwikpen) 0 unit SUBCUT QIDACANDBED [facility]; Protocol Last Admin: 06/10/21 12:15 Dose: Not Given Documented by: Insulin Human Regular (Insulin Regular, Human 100 Units/Ml 3 Ml Vial) 0 unit SUBCUT TIDPC [facility]; Protocol Last Admin: 06/12/21 09:12 Dose: 6 unit Documented by: Iopamidol (Iopamidol 755 Mg/Ml 100 Ml Bottle) 100 ml IVPUSH ONETIME ONE Stop: 06/09/21 23:54 Last Admin: 06/10/21 00:24 Dose: 100 ml Documented by: Iopamidol (Iopamidol 755 Mg/Ml 100 Ml Bottle) 100 ml IVPUSH ONETIME ONE Stop: 06/13/21 08:56 Last Admin: 06/13/21 09:52 Dose: 100 ml Documented by: Magnesium Hydroxide (Magnesium Hydroxide 400 Mg/5 Ml Susp 30 Ml Cup) 30 ml PO ONETIME ONE Stop: 06/13/21 06:01 Last Admin: 06/13/21 06:18 Dose: 30 ml Documented by: Metformin HCl (Metformin 500 Mg Tab) 1,000 mg PO BIDMEALS [facility] Last Admin: 06/11/21 06:06 Dose: 1,000 mg Documented by: Morphine Sulfate (Morphine 2 Mg/Ml Syringe) 2 mg IVPUSH Q2H PRN PRN Reason: Pain (severe 7-10) Stop: 06/11/21 07:46 Non-Formulary Medication (Tresiba) 24 units SQ ONETIME ONE Stop: 06/10/21 03:46 Last Admin: 06/10/21 03:45 Dose: 24 units Documented by: Carbidopa/Levodopa 25-250 Tab Own Med 1 tab PO 0600,1100,1500,1900,2300 [facility] Last Admin: 06/11/21 05:29 Dose: 1 tab Documented by: Non-Formulary Medication (Sitagliptin Phos/Metformin Hcl [Janumet 50-1,000 Mg]) 1 tab PO BID [facility] Non-Formulary Medication (Non-Formulary Medication 1 Each) 1 each PO BID [facility] Pantoprazole Sodium (Pantoprazole 40 Mg Vial) 80 mg IVPUSH BOLUS ONE Stop: 06/16/21 07:05 Last Admin: 06/16/21 08:03 Dose: 80 mg Documented by: Sodium Chloride (Sodium Chloride 0.9% 10 Ml Syringe) 10 ml FLUSH ONETIME PRN PRN Reason: IV FLUSH Stop: 06/13/21 13:00 Trospium (Trospium 20 Mg Tab) 10 mg PO BID [facility] Last Admin: 06/10/21 21:03 Dose: 10 mg Documented by: - Exam Quality Assessment: Supplemental Oxygen (High flow 40 L with FiO2 of 50%), DVT Prophylaxis Urinary Catheter Total Time: 1Days 9Hours General: Alert, Oriented, Cooperative, No Acute Distress HEENT: Pupils Equal, Pupils Reactive, Mucous Membr. Moist/[place] Neck: Supple, Trachea Midline Lungs: Normal Respiratory Effort, Decreased Breath Sounds, Crackles. No: Wheezing Cardiovascular: Regular Rate, Regular Rhythm GI/Abdominal Exam: Normal Bowel Sounds, Soft, Non-Tender, No Distention (Male) Exam: Deferred Back Exam: Normal Inspection, Decreased Range of Motion Extremities: Normal Inspection, Non-Tender, No Pedal Edema, Normal Capillary Refill, Limited Range of Motion Skin: Warm, Dry, Intact Neurological: No New Focal Deficit Psy/Mental Status: Alert, Normal Affect, Normal Mood - Patient Data Lab Results Last 24 hrs: Laboratory Results - last 24 hr 06/17/21 06/18/21 06/18/21 Range/Units 05:57 06:20 06:20 WBC 12.20 H (4.23-9.07) K/mm3 RBC 4.54 L (4.63-6.08) M/mm3 Hgb 13.9 (13.7-17.5) gm/dl Hct 44.0 (40.1-51.0) % MCV 96.9 H (79.0-92.2) fl MCH 30.6 (25.7-32.2) pg MCHC 31.6 L (32.2-35.5) g/dl RDW Std Deviation 49.1 H (35.1-43.9) fL Plt Count 167 (163-337) K/mm3 MPV 9.7 (9.4-12.3) fl Neut % (Auto) 91.0 H (34.0-67.9) % Lymph % (Auto) 3.4 L (21.8-53.1) % [place] % (Auto) 4.8 L (5.3-12.2) % Eos % (Auto) 0.2 L (0.8-7.0) Baso % (Auto) 0.0 L (0.1-1.2) % Neut # (Auto) 11.11 H (1.78-5.38) K/mm3 Lymph # (Auto) 0.42 L (1.32-3.57) K/mm3 [place] # (Auto) 0.58 (0.30-0.82) K/mm3 Eos # (Auto) 0.02 L (0.04-0.54) K/mm3 Baso # (Auto) 0.00 L (0.01-0.08) K/mm3 Manual Slide Review Abnormal smear PT (9.7-12.0) SECONDS INR APTT (21.7-31.4) SECONDS D-Dimer, Quantitative (0.19-0.50) mg/L Sodium 141 (136-145) mEq/L Potassium 4.8 (3.5-5.1) mEq/L Chloride 104 (98-107) mEq/L Carbon Dioxide 32 (21-32) mEq/L Anion Gap 9.8 (5-15) BUN 30 H (7-18) mg/dL Creatinine 1.0 (0.7-1.3) mg/dL Est Cr Clr Drug Dosing 77.63 mL/min Estimated GFR (MDRD) > 60 (>60) mL/min BUN/Creatinine Ratio 30.0 H (14-18) Glucose 176 H (70-99) mg/dL POC Glucose (70-99) mg/dL Calcium 8.5 (8.5-10.1) mg/dL Magnesium 2.3 (1.8-2.4) mg/dL Total Bilirubin 0.5 (0.2-1.0) mg/dL AST 27 (15-37) U/L ALT 10 L (16-63) U/L Alkaline Phosphatase 44 L (46-116) U/L CK-MB (CK-2) (0-3.6) ng/ml Troponin I (0.00-0.056) ng/mL C-Reactive Protein 6.9 H* (<1.0) mg/dL Total Protein 6.0 L (6.4-8.2) g/dl Albumin 2.2 L (3.4-5.0) g/dl Globulin 3.8 gm/dL Albumin/Globulin Ratio 0.6 L (1-2) Procalcitonin 0.26 H ng/mL 06/18/21 06/18/21 06/18/21 Range/Units 06:20 10:23 11:03 WBC (4.23-9.07) K/mm3 RBC (4.63-6.08) M/mm3 Hgb (13.7-17.5) gm/dl Hct (40.1-51.0) % MCV (79.0-92.2) fl MCH (25.7-32.2) pg MCHC (32.2-35.5) g/dl RDW Std Deviation (35.1-43.9) fL Plt Count (163-337) K/mm3 MPV (9.4-12.3) fl Neut % (Auto) (34.0-67.9) % Lymph % (Auto) (21.8-53.1) % [place] % (Auto) (5.3-12.2) % Eos % (Auto) (0.8-7.0) Baso % (Auto) (0.1-1.2) % Neut # (Auto) (1.78-5.38) K/mm3 Lymph # (Auto) (1.32-3.57) K/mm3 [place] # (Auto) (0.30-0.82) K/mm3 Eos # (Auto) (0.04-0.54) K/mm3 Baso # (Auto) (0.01-0.08) K/mm3 Manual Slide Review PT 11.6 (9.7-12.0) SECONDS INR 1.05 APTT (21.7-31.4) SECONDS D-Dimer, Quantitative 25.45 H (0.19-0.50) mg/L Sodium (136-145) mEq/L Potassium (3.5-5.1) mEq/L Chloride (98-107) mEq/L Carbon Dioxide (21-32) mEq/L Anion Gap (5-15) BUN (7-18) mg/dL Creatinine (0.7-1.3) mg/dL Est Cr Clr Drug Dosing mL/min Estimated GFR (MDRD) (>60) mL/min BUN/Creatinine Ratio (14-18) Glucose (70-99) mg/dL POC Glucose (70-99) mg/dL Calcium (8.5-10.1) mg/dL Magnesium (1.8-2.4) mg/dL Total Bilirubin (0.2-1.0) mg/dL AST (15-37) U/L ALT (16-63) U/L Alkaline Phosphatase (46-116) U/L CK-MB (CK-2) 4.2 H (0-3.6) ng/ml Troponin I < 0.017 (0.00-0.056) ng/mL C-Reactive Protein (<1.0) mg/dL Total Protein (6.4-8.2) g/dl Albumin (3.4-5.0) g/dl Globulin gm/dL Albumin/Globulin Ratio (1-2) Procalcitonin ng/mL 06/18/21 06/18/21 06/18/21 Range/Units 11:09 11:13 17:02 WBC (4.23-9.07) K/mm3 RBC (4.63-6.08) M/mm3 Hgb (13.7-17.5) gm/dl Hct (40.1-51.0) % MCV (79.0-92.2) fl MCH (25.7-32.2) pg MCHC (32.2-35.5) g/dl RDW Std Deviation (35.1-43.9) fL Plt Count (163-337) K/mm3 MPV (9.4-12.3) fl Neut % (Auto) (34.0-67.9) % Lymph % (Auto) (21.8-53.1) % [place] % (Auto) (5.3-12.2) % Eos % (Auto) (0.8-7.0) Baso % (Auto) (0.1-1.2) % Neut # (Auto) (1.78-5.38) K/mm3 Lymph # (Auto) (1.32-3.57) K/mm3 [place] # (Auto) (0.30-0.82) K/mm3 Eos # (Auto) (0.04-0.54) K/mm3 Baso # (Auto) (0.01-0.08) K/mm3 Manual Slide Review PT (9.7-12.0) SECONDS INR APTT 25.1 (21.7-31.4) SECONDS D-Dimer, Quantitative (0.19-0.50) mg/L Sodium (136-145) mEq/L Potassium (3.5-5.1) mEq/L Chloride (98-107) mEq/L Carbon Dioxide (21-32) mEq/L Anion Gap (5-15) BUN (7-18) mg/dL Creatinine (0.7-1.3) mg/dL Est Cr Clr Drug Dosing mL/min Estimated GFR (MDRD) (>60) mL/min BUN/Creatinine Ratio (14-18) Glucose (70-99) mg/dL POC Glucose 302 H 257 H (70-99) mg/dL Calcium (8.5-10.1) mg/dL Magnesium (1.8-2.4) mg/dL Total Bilirubin (0.2-1.0) mg/dL AST (15-37) U/L ALT (16-63) U/L Alkaline Phosphatase (46-116) U/L CK-MB (CK-2) (0-3.6) ng/ml Troponin I (0.00-0.056) ng/mL C-Reactive Protein (<1.0) mg/dL Total Protein (6.4-8.2) g/dl Albumin (3.4-5.0) g/dl Globulin gm/dL Albumin/Globulin Ratio (1-2) Procalcitonin ng/mL 06/18/21 06/18/21 06/19/21 Range/Units 18:08 22:20 00:14 WBC (4.23-9.07) K/mm3 RBC (4.63-6.08) M/mm3 Hgb (13.7-17.5) gm/dl Hct (40.1-51.0) % MCV (79.0-92.2) fl MCH (25.7-32.2) pg MCHC (32.2-35.5) g/dl RDW Std Deviation (35.1-43.9) fL Plt Count (163-337) K/mm3 MPV (9.4-12.3) fl Neut % (Auto) (34.0-67.9) % Lymph % (Auto) (21.8-53.1) % Harnett % (Auto) (5.3-12.2) % Eos % (Auto) (0.8-7.0) Baso % (Auto) (0.1-1.2) % Neut # (Auto) (1.78-5.38) K/mm3 Lymph # (Auto) (1.32-3.57) K/mm3 Harnett # (Auto) (0.30-0.82) K/mm3 Eos # (Auto) (0.04-0.54) K/mm3 Baso # (Auto) (0.01-0.08) K/mm3 Manual Slide Review PT (9.7-12.0) SECONDS INR APTT 37.2 H 52.2 H (21.7-31.4) SECONDS D-Dimer, Quantitative (0.19-0.50) mg/L Sodium (136-145) mEq/L Potassium (3.5-5.1) mEq/L Chloride (98-107) mEq/L Carbon Dioxide (21-32) mEq/L Anion Gap (5-15) BUN (7-18) mg/dL Creatinine (0.7-1.3) mg/dL Est Cr Clr Drug Dosing mL/min Estimated GFR (MDRD) (>60) mL/min BUN/Creatinine Ratio (14-18) Glucose (70-99) mg/dL POC Glucose 190 H (70-99) mg/dL Calcium (8.5-10.1) mg/dL Magnesium (1.8-2.4) mg/dL Total Bilirubin (0.2-1.0) mg/dL AST (15-37) U/L ALT (16-63) U/L Alkaline Phosphatase (46-116) U/L CK-MB (CK-2) (0-3.6) ng/ml Troponin I (0.00-0.056) ng/mL C-Reactive Protein (<1.0) mg/dL Total Protein (6.4-8.2) g/dl Albumin (3.4-5.0) g/dl Globulin gm/dL Albumin/Globulin Ratio (1-2) Procalcitonin ng/mL 06/19/21 06/19/21 06/19/21 Range/Units 06:45 06:45 07:21 WBC 10.62 H (4.23-9.07) K/mm3 RBC 4.34 L (4.63-6.08) M/mm3 Hgb 13.4 L (13.7-17.5) gm/dl Hct 41.3 (40.1-51.0) % MCV 95.2 H (79.0-92.2) fl MCH 30.9 (25.7-32.2) pg MCHC 32.4 (32.2-35.5) g/dl RDW Std Deviation 47.0 H (35.1-43.9) fL Plt Count 153 L (163-337) K/mm3 MPV 10.2 (9.4-12.3) fl Neut % (Auto) 93.6 H (34.0-67.9) % Lymph % (Auto) 2.9 L (21.8-53.1) % Harnett % (Auto) 2.7 L (5.3-12.2) % Eos % (Auto) 0.1 L (0.8-7.0) Baso % (Auto) 0.1 (0.1-1.2) % Neut # (Auto) 9.94 H (1.78-5.38) K/mm3 Lymph # (Auto) 0.31 L (1.32-3.57) K/mm3 Harnett # (Auto) 0.29 L (0.30-0.82) K/mm3 Eos # (Auto) 0.01 L (0.04-0.54) K/mm3 Baso # (Auto) 0.01 (0.01-0.08) K/mm3 Manual Slide Review Abnormal smear PT (9.7-12.0) SECONDS INR APTT 35.5 H (21.7-31.4) SECONDS D-Dimer, Quantitative (0.19-0.50) mg/L Sodium (136-145) mEq/L Potassium (3.5-5.1) mEq/L Chloride (98-107) mEq/L Carbon Dioxide (21-32) mEq/L Anion Gap (5-15) BUN (7-18) mg/dL Creatinine (0.7-1.3) mg/dL Est Cr Clr Drug Dosing mL/min Estimated GFR (MDRD) (>60) mL/min BUN/Creatinine Ratio (14-18) Glucose (70-99) mg/dL POC Glucose 180 H (70-99) mg/dL Calcium (8.5-10.1) mg/dL Magnesium (1.8-2.4) mg/dL Total Bilirubin (0.2-1.0) mg/dL AST (15-37) U/L ALT (16-63) U/L Alkaline Phosphatase (46-116) U/L CK-MB (CK-2) (0-3.6) ng/ml Troponin I (0.00-0.056) ng/mL C-Reactive Protein (<1.0) mg/dL Total Protein (6.4-8.2) g/dl Albumin (3.4-5.0) g/dl Globulin gm/dL Albumin/Globulin Ratio (1-2) Procalcitonin ng/mL Result Diagrams: 06/19/21 06:45 06/19/21 06:45 Sepsis Event Note - Evaluation Sepsis Screening Result: No Definite Risk - Focused Exam Vital Signs: Vital Signs Temp Pulse Resp BP BP Pulse Ox Pulse Ox 06/19/21 05:50 96 06/19/21 04:29 96.8 F L 54 L 168/104 H 98 06/19/21 04:27 56 L 20 183/101 H 98 06/19/21 04:00 155/94 H 06/19/21 01:04 61 169/80 H 95 06/19/21 01:03 97.9 F 62 20 172/75 H 94 L 06/18/21 22:34 97.5 F 56 L 20 163/81 H 98 06/18/21 21:16 94 L 06/18/21 21:08 Pulse Ox 06/19/21 05:50 06/19/21 04:29 06/19/21 04:27 06/19/21 04:00 06/19/21 01:04 06/19/21 01:03 06/18/21 22:34 06/18/21 21:16 06/18/21 21:08 94 L - Problem List & Annotations (1) Acute respiratory failure due to COVID-19 SNOMED Code(s): 506163849 Code(s): U07.1 - COVID-19; J96.00 - ACUTE RESPIRATORY FAILURE, UNSP W HYPOXIA OR HYPERCAPNIA Status: Acute Priority: High Current Visit: Yes (2) Pneumonia due to COVID-19 virus SNOMED Code(s): 376376451519064828 Code(s): U07.1 - COVID-19; J12.82 - PNEUMONIA DUE TO CORONAVIRUS DISEASE 2019 Status: Acute Priority: High Current Visit: Yes (3) Diabetes mellitus type 2 in nonobese SNOMED Code(s): 978844121 Code(s): E11.9 - TYPE 2 DIABETES MELLITUS WITHOUT COMPLICATIONS Status: Chronic Priority: High Current Visit: Yes (4) Parkinson's disease dementia SNOMED Code(s): 944396543394597 Code(s): G20 - PARKINSON'S DISEASE; F02.80 - DEMENTIA IN OTH DISEASES CLASSD ELSWHR W/O BEHAVRL DISTURB Status: Chronic Priority: High Current Visit: Yes Qualifiers: Dementia behavioral disturbance: without behavioral disturbance Qualified Code(s): G20 - Parkinson's disease; F02.80 - Dementia in other diseases classified elsewhere without behavioral disturbance (5) Elevated C-reactive protein (CRP) SNOMED Code(s): 724119225482652 Code(s): R79.82 - ELEVATED C-REACTIVE PROTEIN (CRP) Status: Acute Priority: High Current Visit: Yes (6) Elevated d-dimer SNOMED Code(s): 194631144 Code(s): R79.89 - OTHER SPECIFIED ABNORMAL FINDINGS OF BLOOD CHEMISTRY Status: Acute Priority: High Current Visit: Yes (7) Elevated procalcitonin SNOMED Code(s): 209369762, 972298446 Code(s): R79.89 - OTHER SPECIFIED ABNORMAL FINDINGS OF BLOOD CHEMISTRY Status: Resolved Priority: High Current Visit: Yes (8) GI bleed SNOMED Code(s): 92421105 Code(s): K92.2 - GASTROINTESTINAL HEMORRHAGE, UNSPECIFIED Status: Resolved Priority: Medium Current Visit: Yes Qualifiers: GI bleed type/associated pathology: unspecified gastrointestinal hemorrhage type Qualified Code(s): K92.2 - Gastrointestinal hemorrhage, unspecified (9) Aspiration into airway SNOMED Code(s): 406185841 Code(s): T17.908A - UNSP FB IN RESP TRACT, PART UNSP CAUSING OTH INJURY, INIT Status: Suspected Priority: High Current Visit: Yes Qualifiers: Encounter type: initial encounter Qualified Code(s): T17.908A - Unspecified foreign body in respiratory tract, part unspecified causing other injury, initial encounter - Problem List Review Problem List Initiated/Reviewed/Updated: Yes - My Orders Last 24 Hours: My Active Orders 06/18/21 11:00 Heparin Sodium/D5W [Heparin 25,000 Units in D5W 500 ML] 25,000 units in 500 ml IV TITRATE 06/19/21 06:45 CMP [COMPREHENSIVE METABOLIC PN,CMP] [CHEM] AM CRP [C-REACTIVE PROTEIN] [CHEM] AM MAGNESIUM [CHEM] AM - Plan Plan:: The patient is a 71-year-old gentleman who has been admitted to acute hospitalization secondary to pneumonia associated with COVID-19. The patient has been started on dexamethasone 6 mg p.o. daily. The patient also has been started on remdesivir 100 mg IV daily as he was given 200 mg IV in the emergency department. The patient will be kept on carb constant diet and Accu-Cheks before meals and at bedtime. He is on insulin sliding scale low-dose. The patient has a history of what appears to be Parkinson's dementia and he is also on carbidopa/levodopa and this has been continued as a part of his home medications. The patient's DVT prophylaxis will be the use of Lovenox 40 mg subcutaneous daily. Oxygen will be titrated to keep his saturations around 92%. Repeat laboratory studies have been ordered. PT OT also has been ordered for the patient. Because of the patient's comorbidities and his COVID-19 pneumonia his overall prognosis is poor. 06/11/2021 71-year-old male with a history of Parkinson's disease admitted for treatment of his COVID-19 pneumonia. Patient was noted to be very confused on admission and this has improved greatly. He is alert to person place and time. He continues on dexamethasone and remdesivir. Labs today show a WBC of 7.26. Hemoglobin 12.7. Platelet 178,000. Patient has been on Rocephin and there is no clear indication for this. We will therefore discontinue it. Procalcitonin is pending. Blood cultures are negative. D-dimer is elevated at 2.61 which is an improvement over yesterday. Patient CTA was negative however we will also check lower extremities for DVT. No obvious signs of DVT at this point. Sodium 138. Potassium 4.5. Chloride 103. Carbon dioxide 26. Anion gap 13.5. BUN is 31. Creatinine 1.0. GFR is improved to greater than 60. Glucose has been ranging from 345-237. We will discontinue patient's Metformin but we will continue alogliptin. We will increase patient's long-acting insulin to 28 units at bedtime as he has been receiving significant amounts of sliding scale insulin. Magnesium is 2.2. Bilirubin 0.4. AST is 32, ALT 9, alkaline phosphatase 40. CRP is 12.0. Protein is 5.9. Albumin is 2.3. There is some confusion with when the patient actually developed symptoms whether or not his symptoms have b een improving or worsening. Because of this we will keep the patient on quarantine for a total of 10 days unless he requires high flow. This would mean he may come off of isolation at 06/15/2021 at 23:59. Discussed plan of care with patient. He reports he would like us to discuss this with his daughters. There is some [id number] on whether or not to continue remdesivir and ultimately decision is made to continue this as patient's liver enzymes and renal function look good. Family requests zinc and vitamin C be started and this seems reasonable. They would like vitamin D be started and we will check a level of this prior to prescribing. All questions answered. Unknown length of stay due to severity of COVID-19 illness. 06/12/2021 This is a 71-year-old male with a history of Parkinson's disease who is admitted to a floor for altered mental status and COVID-19 pneumonia. His mental status remains greatly improved with baseline confusion. He is on 6 to 7 L via nasal cannula with saturations in the upper 80s to low 90s. His procalcitonin from yesterday returned quite elevated at 2.04. Because of this we will resume Rocephin 2 g and start 3 days worth of azithromycin. We will check a UA on the patient as well. Labs today show a WBC of 5.09. Hemoglobin 12.5. Platelet of 202,000. Neutrophils are elevated 85.1%. Sodium 139. Potassium 4.4. Chloride 102. Carbon dioxide 31. Anion gap 10.4. BUN is 31. Creatinine 1.1. GFR is greater than 60. Glucose has remained elevated at 2 48-2 82 we will continue to monitor this and adjust insulin as needed. Magnesium is 2.2. Bilirubin 0.5. AST is 27, ALT 18, alkaline phosphatase 39. CRP is down to 5.6. Albumin is 2.2. We will continue remdesivir and dexamethasone. Patient's vitamin D level was within normal limits at 81.0 we will not start vitamin D supplementation. Patient is reporting significant joint pain and we will order as needed Aspercreme and scheduled Tylenol. Unknown length of stay due to severity of COVID-19 illness. 06/13/2021 71-year-old male with a history of Parkinson's disease was admitted to the floor for treatment of his COVID-19 pneumonia. Unfortunately patient's oxygen saturations have continued to drop he is now requiring high flow oxygen 55 L with an FiO2 of 85%. Overall he states he feels worse today than he did yesterday. Blood cultures remain negative. Labs show WBC of 4.54. Hemoglobin is 13.2. Platelets 200,000. Neutrophils are elevated 84.8%. D-dimer increased today to 6.74. Because of this and his worsening saturations patient was sent for CTA, which was negative although there was noted suboptimal opacification of the main or segmental branches. It is noted that smaller subsegmental pulmonary emboli could be missed. Diffuse parenchymal densities within both sides of the chest are noted however there is slight improvement also noted. Other chronic findings are noted. Sodium is 140. Potassium 4.6. Chloride 102. Carbon dioxide 32. BUN is 24. Creatinine 1.0. GFR is greater than 60. Blood glucose readings have improved from 1 62-2 25. Magnesium is 1.9. Bilirubin 0.5. AST is 28, ALT 7, alkaline phosphatase 41. CRP is 3.0. Protein is 6.2. Albumin is 2.2. UA was obtained yesterday and was negative however 1+ protein, 2+ glucose, and trace ketones are noted. At the patient's request of his daughter Clemencia was contacted at [phone] to discuss progress and possibly starting baricitinib. They will get back to us regarding this. We will consider moving patient to ICU should a bed become available given his rapidly deteriorating status. Unknown length of stay due to severity of Covid symptoms. We will continue remdesivir and increase dexamethasone to 6 mg twice daily starting today. Patient also continues on 3 days worth of azithromycin and 5 days worth of Rocephin. We will recheck a procalcitonin given his prior elevated resolved. Length of stay greater than 96 hours due to need for continued COVID-19 treatment. 06/14/2021 71-year-old male with history of Parkinson's disease admitted to the floor for COVID-19. Saturations have improved today and he remains on 50 L high flow with an FiO2 of 65%. Blood cultures remain negative. Vital signs otherwise been stable. He completed azithromycin and continues on Rocephin. He completed his remdesivir treatment. As the patient was having rapidly worsening oxygen saturations baricitinib was recommended yesterday and after discussion with the patient and amongst family members they ultimately agreed in the evening hours. WBC is 4.92. Hemoglobin 14.1. Platelet 194,000. Neutrophils are 88.4%. Blood smear is normal. Sodium is 139. Potassium 4.5. Chloride 100. Carbon oxide 32. Anion gap 11.5. BUN is 22. Creatinine 0.9. GFR greater than 60. Glucose is 97-1 58. Magnesium 2.1. Bilirubin 0.6. AST is 28, ALT is 15, alkaline phosphatase 46. CRP is 4.6. Albumin is 2.4. We will continue current treatment plan and attempt to wean off oxygen as the patient tolerates. Unkn own length of stay. Because of his significant worsening in oxygen saturations over the last 12-24 hours I have recommended baricitinib. I spoke with Yehuda and his daughter Elena via phone to provide information about baricitinib. I offered the "fax sheet for patients and parents/caregivers, for baricitinib" to read and review. I stated that therapy has been approved by an emergency use authorization process and has not fully been FDA reviewed or approved. I shared potential risks from the therapy including increased risk for serious infections, anaphylaxis, and reaction to medication. I discussed there are other potential treatment options that are currently not FDA approved to treat COVID-19. Offered opportunity to ask questions and all questions were answered. Yehuda and Elena voiced understanding and after some discussion agreed to proceed with treatment. 06/15/2021 This is a 71-year-old male with a history of Parkinson's disease who was admitted to the floor for treatment of COVID-19 pneumonia. His saturations have been improving with therapy and he is currently on 40 L with an FiO2 of 50%. He continues on Rocephin with his last dose tomorrow and he completed azithromycin and remdesivir. He also continues on dexamethasone 6 mg twice daily and baricitinib. Today patient's D-dimer was noted to be 20.38. Patient has had 2 CTAs with PE protocol and has had his legs scanned for DVT. Given his improving oxygen saturations and lack of leg pain or other signs of DVT, combined with his prior imaging we will forego scanning and begin 1 mg/kg twice daily Lovenox treatment. We will continue to monitor D-dimers as ordered. Otherwise patient states that he is feeling better. His lung sounds are improving with better aeration of the lower amado. He has not been sleeping well at night and we will start him on scheduled melatonin. We will also start the let me sleep protocol. Given his continued stability we will decrease vital signs to 4 times daily. Labs today show a leukocytosis of 9.30. Hemoglobin is 14.4. Platelet 203,000. Smear is normal. D-dimer as mentioned prior was 20.38. Sodium 139. Potassium 4.4. Chloride 102. Carbon dioxide 28. Anion gap 13.4. BUN is 29. Creatinine 1.0. GFR greater than 60. Glucose has been between 147 and 244. Calcium is 8.7. Magnesium 2.1. Total bilirubin 0.6. AST is 27, ALT 14, alkaline phosphatase 46. CRP is 2.7. Given the severity of his symptoms he will require 20 days of isolation/quarantine. Unknown length of stay due to continued severity of COVID-19 pneumonia. Goal saturations will be 2 L or less via nasal cannula prior to discharge. Patient's daughter Clemencia updated on patient's progress and plan of care at request of patient. 06/16/2021 71-year-old male with history of Parkinson's disease being treated for COVID-19 pneumonia. He had a large coffee-ground emesis this morning. Yesterday we increased his Lovenox 200 mg every 12 hours per full dose protocol for anticoagulation. Patient's D-dimer had increased to 20, but CTA of the chest done on June 13 was negative for PE but slightly suboptimal opacification of the pulmonary arteries. Because the smaller subsegmental pulmonary emboli could be missed and he had a continuing increase in his D-dimer we felt that prudent to treat him with full anticoagulation. Also of note venous Doppler studies were negative for DVT. There was concern that patient could have aspirated when he had the large coffee-ground emesis. Chest x-ray was performed which showed improvement in the parenchymal densities within both sides of the chest. He was switched over to Zosyn to cover for aspiration pneumonia. He had an increase oxygen requirement and high flow requirement precipitating the increase coverage. Also, patient is much more lethargic and answering and only short sen tences. Family was updated. Of note his hemoglobin actually increased and he appears to be hemoconcentrated. He was on 35 L of high flow overnight until he had this episode and now he is on CPAP 9 cm of water pressure with 15 L bled in. He has been given a bolus of 250 mL of LR and started on a rate of 150 mL to correct his apparent hypovolemia. Patient has mild tachycardia with the increase of his hemoglobin from 14.4-16.2. White count did also increased from 9.3-11.45. Platelet count is stable at 188. Creatinine increased from 1.0-1.7 making his estimated GFR 40. BUN is now 26. CRP has decreased from 2.7-1.9. He has a slight anion gap of 16.6. We will repeat his hemoglobin at noon. Start on Protonix 80 mg IV bolus then 40 mg twice daily. We will stop his Lovenox and continue SCDs. He is much more lethargic today, but this could be due to stress so we will continue to monitor his mental status. He was transferred to the ICU. 06/17/2021 71-year-old male with Parkinson's being treated for COVID-19 pneumonia had a significant improvement in the last 24 hours. He was moved out of the ICU back to the floor. He has had a small drop in his hemoglobin from 14 yesterday afternoon down to 12.8 this morning. He has not had any more bleeding. We did stop his anticoagulation secondary to his coffee-ground emesis. He is on Protonix twice daily. He is currently on 6 L nasal cannula with oxygen saturations in the low 90s. His CRP did increase up to 13.1 from 1.9. This is likely secondary to the inflammatory response yesterday. He continues on Zosyn for antibiotics. Blood sugars this afternoon were high at 249. Renal function has also improved BUN of 29 with a creatinine of 0.9. Continue other care. 06/18/2021 This is a 71-year-old male admitted to the floor for COVID-19 pneumonia. Over the weekend he was noted to have a large coffee-ground emesis and there was concern that he may have aspirated. He was started on Zosyn and that continues. His oxygen saturations have decreased and he is currently on 40 L with an FiO2 of 55%. Today he was complaining of chest pain a twelve-lead EKG was obtained as noted with no findings of any acute ischemia. Troponin was checked and was less than 0.017. CK-MB was 4.2. CRP has decreased to 6.9 white count today is up to 12.20 of note patient continues on dexamethasone 6 mg twice daily. We will look at decreasing this in the near future. Platelet are 167,000. Neutrophils are elevated 91%. Smear shows normal-appearing red blood cells and slight thrombocytopenia with normal morphology. Neutrophilia is also noted. PT today was 11.6. INR was 1.05. aPTT was 25.1. D-dimer was quite high at 25.45. Electrolytes look good. Renal function continues with a GFR greater than 60. Blood sugars have been between 172 and 302. Bilirubin 0.5. AST is 27, ALT 10, alkaline phosphatase 44. Albumin is improved to 2.2. Discussed elevated D-dimer with Dr. Wolf, attending hospitalist, and we will restart VTE pharmacological prophylaxis using a heparin drip with VTE protocol. We will not give initial bolus dose. We will continue to monitor for signs of GI bleed and will continue Protonix twice daily. Procalcitonin is pending and we will monitor this for guidance with antibiotic therapy. Overall he states that he is doing a bit better than yesterday and that he feels okay. Unknown length of stay due to severity of symptoms. 06/19/2021 71-year-old male admitted to the floor for COVID-19 pneumonia who subsequently had adverse reaction to full-strength Lovenox treatment resulting in GI bleed and possible questionable aspiration. Patient remains on Zosyn every 8 hours. Given his very high D-dimer at 24 and continued high risk for VTE we have started on heparin drip without boluses and are slowly working her way upward monitoring his APTT. Today he reports he feels quite a bit better. He continues to have chronic knee pain but has been responding well to Aspercreme for this. He is on 40 L with an FiO2 of 50% high flow. WBC is up to 10.62 but this may be steroid related. Platelets are down to 153,000. Neutrophils are 93.6%. Smear does not note neutropenia. Sodium is 137. Potassium 4.6. Anion gap is 12.6. BUN is 26. Creatinine 0.8. GFR greater than 60. Glucose has been 1 67-2 57. Magnesium is 2.0. Bilirubin 0.8. AST is 18, ALT less than 6, alkaline phosphatase is 40. CRP is 2.7. Albumin is 2.1. We will decrease patient's steroid from 6 mg dexamethasone twice daily to 6 mg dexamethasone daily. He remains on baricitinib. He continues to utilize his incentive spirometer and Acapella. PT and OT continue to work with him. Unknown length of stay due to severity of symptoms. <MaryannMatthew Roe Jr - Last Filed: 06/19/21 20:13> - Patient Data Vitals - Most Recent: Last Vital Signs Temp 98.4 F 06/19/21 15:32 Pulse 72 06/19/21 15:32 Resp 26 H 06/19/21 15:32 BP 134/68 06/19/21 15:32 Pulse Ox 97 06/19/21 18:32 I&O - Last 24 Hours: Intake & Output 06/19/21 06/19/21 06/19/21 06:59 14:59 22:59 Intake Total 770 120 734 Output Total 500 600 Balance 270 120 134 Lab Results Last 24 Hours: Laboratory Results - last 24 hr 06/18/21 06/19/21 06/19/21 Range/Units 22:20 00:14 06:45 WBC 10.62 H (4.23-9.07) K/mm3 RBC 4.34 L (4.63-6.08) M/mm3 Hgb 13.4 L (13.7-17.5) gm/dl Hct 41.3 (40.1-51.0) % MCV 95.2 H (79.0-92.2) fl MCH 30.9 (25.7-32.2) pg MCHC 32.4 (32.2-35.5) g/dl RDW Std Deviation 47.0 H (35.1-43.9) fL Plt Count 153 L (163-337) K/mm3 MPV 10.2 (9.4-12.3) fl Neut % (Auto) 93.6 H (34.0-67.9) % Lymph % (Auto) 2.9 L (21.8-53.1) % Harnett % (Auto) 2.7 L (5.3-12.2) % Eos % (Auto) 0.1 L (0.8-7.0) Baso % (Auto) 0.1 (0.1-1.2) % Neut # (Auto) 9.94 H (1.78-5.38) K/mm3 Lymph # (Auto) 0.31 L (1.32-3.57) K/mm3 Harnett # (Auto) 0.29 L (0.30-0.82) K/mm3 Eos # (Auto) 0.01 L (0.04-0.54) K/mm3 Baso # (Auto) 0.01 (0.01-0.08) K/mm3 Manual Slide Review Abnormal smear APTT 52.2 H (21.7-31.4) SECONDS Sodium (136-145) mEq/L Potassium (3.5-5.1) mEq/L Chloride (98-107) mEq/L Carbon Dioxide (21-32) mEq/L Anion Gap (5-15) BUN (7-18) mg/dL Creatinine (0.7-1.3) mg/dL Est Cr Clr Drug Dosing mL/min Estimated GFR (MDRD) (>60) mL/min BUN/Creatinine Ratio (14-18) Glucose (70-99) mg/dL POC Glucose 190 H (70-99) mg/dL Calcium (8.5-10.1) mg/dL Magnesium (1.8-2.4) mg/dL Total Bilirubin (0.2-1.0) mg/dL AST (15-37) U/L ALT (16-63) U/L Alkaline Phosphatase (46-116) U/L C-Reactive Protein (<1.0) mg/dL Total Protein (6.4-8.2) g/dl Albumin (3.4-5.0) g/dl Globulin gm/dL Albumin/Globulin Ratio (1-2) 06/19/21 06/19/21 06/19/21 Range/Units 06:45 06:45 07:21 WBC (4.23-9.07) K/mm3 RBC (4.63-6.08) M/mm3 Hgb (13.7-17.5) gm/dl Hct (40.1-51.0) % MCV (79.0-92.2) fl MCH (25.7-32.2) pg MCHC (32.2-35.5) g/dl RDW Std Deviation (35.1-43.9) fL Plt Count (163-337) K/mm3 MPV (9.4-12.3) fl Neut % (Auto) (34.0-67.9) % Lymph % (Auto) (21.8-53.1) % [place] % (Auto) (5.3-12.2) % Eos % (Auto) (0.8-7.0) Baso % (Auto) (0.1-1.2) % Neut # (Auto) (1.78-5.38) K/mm3 Lymph # (Auto) (1.32-3.57) K/mm3 [place] # (Auto) (0.30-0.82) K/mm3 Eos # (Auto) (0.04-0.54) K/mm3 Baso # (Auto) (0.01-0.08) K/mm3 Manual Slide Review APTT 35.5 H (21.7-31.4) SECONDS Sodium 137 (136-145) mEq/L Potassium 4.6 (3.5-5.1) mEq/L Chloride 100 (98-107) mEq/L Carbon Dioxide 29 (21-32) mEq/L Anion Gap 12.6 (5-15) BUN 26 H (7-18) mg/dL Creatinine 0.8 (0.7-1.3) mg/dL Est Cr Clr Drug Dosing 97.04 mL/min Estimated GFR (MDRD) > 60 (>60) mL/min BUN/Creatinine Ratio 32.5 H (14-18) Glucose 167 H (70-99) mg/dL POC Glucose 180 H (70-99) mg/dL Calcium 8.3 L (8.5-10.1) mg/dL Magnesium 2.0 (1.8-2.4) mg/dL Total Bilirubin 0.8 (0.2-1.0) mg/dL AST 18 (15-37) U/L ALT < 6 L (16-63) U/L Alkaline Phosphatase 40 L (46-116) U/L C-Reactive Protein 2.7 H* (<1.0) mg/dL Total Protein 5.8 L (6.4-8.2) g/dl Albumin 2.1 L (3.4-5.0) g/dl Globulin 3.7 gm/dL Albumin/Globulin Ratio 0.6 L (1-2) 06/19/21 06/19/21 06/19/21 Range/Units 11:47 12:40 16:27 WBC (4.23-9.07) K/mm3 RBC (4.63-6.08) M/mm3 Hgb (13.7-17.5) gm/dl Hct (40.1-51.0) % MCV (79.0-92.2) fl MCH (25.7-32.2) pg MCHC (32.2-35.5) g/dl RDW Std Deviation (35.1-43.9) fL Plt Count (163-337) K/mm3 MPV (9.4-12.3) fl Neut % (Auto) (34.0-67.9) % Lymph % (Auto) (21.8-53.1) % [place] % (Auto) (5.3-12.2) % Eos % (Auto) (0.8-7.0) Baso % (Auto) (0.1-1.2) % Neut # (Auto) (1.78-5.38) K/mm3 Lymph # (Auto) (1.32-3.57) K/mm3 [place] # (Auto) (0.30-0.82) K/mm3 Eos # (Auto) (0.04-0.54) K/mm3 Baso # (Auto) (0.01-0.08) K/mm3 Manual Slide Review APTT 48.1 H (21.7-31.4) SECONDS Sodium (136-145) mEq/L Potassium (3.5-5.1) mEq/L Chloride (98-107) mEq/L Carbon Dioxide (21-32) mEq/L Anion Gap (5-15) BUN (7-18) mg/dL Creatinine (0.7-1.3) mg/dL Est Cr Clr Drug Dosing mL/min Estimated GFR (MDRD) (>60) mL/min BUN/Creatinine Ratio (14-18) Glucose (70-99) mg/dL POC Glucose 305 H 308 H (70-99) mg/dL Calcium (8.5-10.1) mg/dL Magnesium (1.8-2.4) mg/dL Total Bilirubin (0.2-1.0) mg/dL AST (15-37) U/L ALT (16-63) U/L Alkaline Phosphatase (46-116) U/L C-Reactive Protein (<1.0) mg/dL Total Protein (6.4-8.2) g/dl Albumin (3.4-5.0) g/dl Globulin gm/dL Albumin/Globulin Ratio (1-2) Med Orders - Current: Current Medications Acetaminophen (Acetaminophen 325 Mg Tab) 650 mg PO Q8H [facility] Last Admin: 06/19/21 13:06 Dose: 650 mg Documented by: Al Hydroxide/Mg Hydroxide (Aluminum Hydroxide/Magnesium Hydroxide/Simethicone Susp 30 Ml Cup) 30 ml PO Q4H PRN PRN Reason: Heartburn Last Admin: 06/14/21 21:37 Dose: 30 ml Documented by: Albuterol (Albuterol 6.7 Gm Inhaler) 0 gm INH QID PRN PRN Reason: SOB/Wheezing Albuterol/Ipratropium (Albuterol/Ipratropium 3.0-0.5 Mg/3 Ml Neb Soln) 3 ml NEB Q4H PRN PRN Reason: Shortness Of Breath/wheezing Last Admin: 06/19/21 08:26 Dose: 3 ml Documented by: Alogliptin Benzoate (Alogliptin 12.5 Mg Tab) 12.5 mg PO BIDMEALS [facility] Last Admin: 06/19/21 18:12 Dose: 12.5 mg Documented by: Ascorbic Acid (Ascorbic Acid 500 Mg Tab) 500 mg PO DAILY [facility] Last Admin: 06/19/21 09:25 Dose: 500 mg Documented by: Baricitinib (Baricitinib 2 Mg Tab) 4 mg PO DAILY [facility] Stop: 06/26/21 09:01 Last Admin: 06/19/21 09:25 Dose: 4 mg Documented by: Dexamethasone (Dexamethasone 4 Mg Tab) 6 mg PO DAILY [facility] Docusate Sodium (Docusate Sodium 100 Mg Cap) 100 mg PO BID PRN PRN Reason: Constipation Last Admin: 06/14/21 12:07 Dose: 100 mg Documented by: Finasteride (Finasteride 5 Mg Tab) 5 mg PO DAILY [facility] Last Admin: 06/19/21 09:25 Dose: 5 mg Documented by: Guaifenesin/Phenylephrine HCl (Guaifenesin/Dextromethorphan 100-10 Mg/5 Ml Soln 5 Ml Cup) 10 ml PO Q6H PRN PRN Reason: Cough Piperacillin Sod/Tazobactam (Sod 4.5 gm/ Sodium Chloride) 100 mls @ 25 mls/hr IV Q8H [facility] Last Admin: 06/19/21 15:34 Dose: 25 mls/hr Documented by: Heparin Sodium/Dextrose (Heparin 25,000 Units In D5w 500 Ml) 25,000 units in 500 mls @ 26 mls/hr IV TITRATE [facility]; Protocol Last Titration: 06/19/21 14:32 Dose: 38.4 ml/hr, 38.4 mls/hr Documented by: Insulin Glargine (Insulin Glargine,Hum.Rec.Anlog 100 Unit/Ml 3 Ml Pen) 32 unit SUBCUT BEDTIME [facility] Last Admin: 06/18/21 22:23 Dose: 32 unit Documented by: Insulin Human Regular (Insulin Regular, Human 100 Units/Ml 3 Ml Vial) 0 unit SUBCUT QIDACANDBED [facility]; Protocol Last Admin: 06/19/21 18:12 Dose: 12 unit Documented by: Levothyroxine Sodium (Levothyroxine 50 Mcg Tab) 50 mcg PO ACBREAKFAST [facility] Last Admin: 06/19/21 07:14 Dose: 50 mcg Documented by: Melatonin (Melatonin 3 Mg Tab) 6 mg PO BEDTIME [facility] Last Admin: 06/18/21 22:23 Dose: 6 mg Documented by: Carbidopa/Levodopa 25-250 Tab Own Med 1 tab PO 0600,1100,1500,1900,2300 [facility] Last Admin: 06/19/21 19:17 Dose: 1 tab Documented by: Ondansetron HCl (Ondansetron 4 Mg Tab.Dis) 4 mg PO Q4H PRN PRN Reason: nausea, able to take PO Oxycodone HCl (Oxycodone 5 Mg Tab) 5 mg PO Q4H PRN PRN Reason: Pain (moderate 4-6) Last Admin: 06/16/21 17:59 Dose: 5 mg Documented by: Sodium Chloride (Sodium Chloride 0.9% 10 Ml Syringe) 10 ml FLUSH ASDIRECTED PRN PRN Reason: Keep Vein Open Last Admin: 06/10/21 00:24 Dose: 10 ml Documented by: Tamsulosin HCl (Tamsulosin 0.4 Mg Cap.Er) 0.4 mg PO BEDTIME [facility] Last Admin: 06/18/21 22:22 Dose: 0.4 mg Documented by: Temazepam (Temazepam 15 Mg Cap) 15 mg PO BEDTIME PRN PRN Reason: Sleep Last Admin: 06/13/21 21:18 Dose: 15 mg Documented by: Trolamine Salicylate (Trolamine Salicylate/Aloe Vera 10% Crm 85 Gm Tube) 1 gm TOP Q2H PRN PRN Reason: Pain (moderate 4-6) Last Admin: 06/19/21 00:55 Dose: 1 applic Documented by: Trospium (Trospium 20 Mg Tab) 20 mg PO BID [facility] Last Admin: 06/19/21 09:24 Dose: 20 mg Documented by: Zinc Sulfate (Zinc Sulfate 220 Mg Cap) 220 mg PO DAILY [facility] Last Admin: 06/19/21 09:25 Dose: 220 mg Documented by: Discontinued Medications Acetaminophen (Acetaminophen 325 Mg Tab) 975 mg PO NOW ONE Stop: 06/09/21 21:16 Last Admin: 06/09/21 21:41 Dose: 350 mg Documented by: Acetaminophen (Acetaminophen 650 Mg Supp) 650 mg RECTAL NOW ONE Stop: 06/09/21 21:52 Last Admin: 06/09/21 22:30 Dose: 650 mg Documented by: Acetaminophen (Acetaminophen 325 Mg Tab) 650 mg PO Q4H PRN PRN Reason: Pain (Mild 1-3)/fever Last Admin: 06/12/21 08:10 Dose: 650 mg Documented by: Acetaminophen (Acetaminophen 325 Mg Tab) 975 mg PO Q8HR [facility] Acetaminophen (Acetaminophen 325 Mg Tab) 650 mg PO Q8H [facility] Last Admin: 06/12/21 11:51 Dose: Not Given Documented by: Acetaminophen (Acetaminophen 325 Mg Tab) 650 mg PO Q8H [facility] Last Admin: 06/16/21 02:16 Dose: Not Given Documented by: Carbidopa/Levodopa (Carbidopa/Levodopa 25-100 Mg Tab) 1 tab PO QID [facility] Last Admin: 06/10/21 16:54 Dose: 1 tab Documented by: Dexamethasone (Dexamethasone 4 Mg/Ml 5 Ml Mdv) 6 mg IV ONETIME ONE Stop: 06/10/21 00:53 Last Admin: 06/10/21 01:31 Dose: 6 mg Documented by: Dexamethasone (Dexamethasone 4 Mg Tab) 6 mg PO DAILY [facility] Stop: 06/18/21 09:01 Last Admin: 06/12/21 08:55 Dose: 6 mg Documented by: Dexamethasone (Dexamethasone 4 Mg Tab) 6 mg PO BID [facility] Last Admin: 06/19/21 09:25 Dose: 6 mg Documented by: Enoxaparin Sodium (Enoxaparin 40 Mg/0.4 Ml Syringe) 40 mg SUBCUT DAILY [facility] Last Admin: 06/14/21 10:24 Dose: 40 mg Documented by: Enoxaparin Sodium (Enoxaparin 100 Mg/1 Ml Syringe) 100 mg SUBCUT Q12H [facility] Last Admin: 06/15/21 22:00 Dose: 100 mg Documented by: Glimepiride (Glimepiride 2 Mg Tab) 4 mg PO DAILY [facility] Last Admin: 06/10/21 09:51 Dose: 4 mg Documented by: Glimepiride (Glimepiride 2 Mg Tab) 2 mg PO WITHBREAKFAST [facility] Last Admin: 06/11/21 06:05 Dose: 2 mg Documented by: Sodium Chloride (Normal Saline) 1,000 mls @ 250 mls/hr IV ONETIME ONE Stop: 06/10/21 01:14 Last Infusion: 06/09/21 21:41 Dose: 250 mls/hr Documented by: Sodium Chloride (Normal Saline) Confirm Administered Dose 1,000 mls @ as directed .ROUTE .STK-MED ONE Stop: 06/09/21 21:19 Last Admin: 06/10/21 01:11 Dose: Not Given Documented by: Remdesivir 200 mg/ Sodium (Chloride) 250 mls @ 250 mls/hr IV ONETIME ONE Stop: 06/10/21 00:53 Last Admin: 06/10/21 01:47 Dose: 250 mls/hr Documented by: Remdesivir 100 mg/ Sodium (Chloride) 100 mls @ 100 mls/hr IV Q24H [facility] Stop: 06/13/21 21:59 Last Admin: 06/13/21 21:19 Dose: 100 mls/hr Documented by: Ceftriaxone Sodium 1 gm/ (Sodium Chloride) 100 mls @ 200 mls/hr IV Q24H [facility] Last Admin: 06/11/21 09:01 Dose: 200 mls/hr Documented by: Ceftriaxone Sodium 2 gm/ (Sodium Chloride) 100 mls @ 200 mls/hr IV Q24H [facility] Stop: 06/16/21 09:29 Last Admin: 06/15/21 09:19 Dose: 200 mls/hr Documented by: Azithromycin 500 mg/ Sodium (Chloride) 250 mls @ 250 mls/hr IV Q24H [facility] Stop: 06/14/21 08:59 Last Admin: 06/14/21 08:49 Dose: 250 mls/hr Documented by: Sodium Chloride (Normal Saline) 100 mls @ 75 mls/hr IV ASDIRECTED [facility] Stop: 06/13/21 13:00 Last Admin: 06/13/21 09:52 Dose: 75 mls/hr Documented by: Lactated Ringer's (Ringers, Lactated) 1,000 mls @ 150 mls/hr IV ASDIRECTED [facility] Last Admin: 06/16/21 06:45 Dose: 150 mls/hr Documented by: Lactated Ringer's (Ringers, Lactated) Confirm Administered Dose 1,000 mls @ as directed .ROUTE .STK-MED ONE Stop: 06/16/21 06:44 Last Admin: 06/16/21 08:07 Dose: Not Given Documented by: Piperacillin Sod/Tazobactam (Sod 4.5 gm/ Sodium Chloride) 100 mls @ 200 mls/hr IV ONETIME ONE Stop: 06/16/21 08:31 Last Admin: 06/16/21 09:13 Dose: 200 mls/hr Documented by: Lactated Ringer's (Ringers, Lactated) 1,000 mls @ 75 mls/hr IV ASDIRECTED [facility] Last Admin: 06/16/21 22:47 Dose: 75 mls/hr Documented by: Insulin Glargine (Insulin Glarg,Human.Rec.Analog 100 Unit/Ml) 24 unit SUBCUT BEDTIME [facility] Insulin Glargine (Insulin Glargine,Hum.Rec.Anlog 100 Unit/Ml 3 Ml Pen) 24 unit SUBCUT BEDTIME [facility] Last Admin: 06/10/21 21:05 Dose: 24 units Documented by: Insulin Glargine (Insulin Glargine,Hum.Rec.Anlog 100 Unit/Ml 3 Ml Pen) 28 unit SUBCUT BEDTIME [facility] Last Admin: 06/11/21 21:21 Dose: 28 units Documented by: Insulin Human Isoph/Insulin Regular (Insulin Nph/Insulin Regular,Human 70-30 100 Units/Ml 10 Ml Vial) 0 units SUBCUT BIDAC [facility]; Protocol Last Admin: 06/10/21 02:36 Dose: Not Given Documented by: Insulin Human Lispro (Insulin Lispro 100 Unit/Ml 3 Ml Kwikpen) 0 unit SUBCUT QIDACANDBED [facility]; Protocol Last Admin: 06/10/21 12:15 Dose: Not Given Documented by: Insulin Human Regular (Insulin Regular, Human 100 Units/Ml 3 Ml Vial) 0 unit SUBCUT TIDPC [facility]; Protocol Last Admin: 06/12/21 09:12 Dose: 6 unit Documented by: Iopamidol (Iopamidol 755 Mg/Ml 100 Ml Bottle) 100 ml IVPUSH ONETIME ONE Stop: 06/09/21 23:54 Last Admin: 06/10/21 00:24 Dose: 100 ml Documented by: Iopamidol (Iopamidol 755 Mg/Ml 100 Ml Bottle) 100 ml IVPUSH ONETIME ONE Stop: 06/13/21 08:56 Last Admin: 06/13/21 09:52 Dose: 100 ml Documented by: Magnesium Hydroxide (Magnesium Hydroxide 400 Mg/5 Ml Susp 30 Ml Cup) 30 ml PO ONETIME ONE Stop: 06/13/21 06:01 Last Admin: 06/13/21 06:18 Dose: 30 ml Documented by: Metformin HCl (Metformin 500 Mg Tab) 1,000 mg PO [facility] Last Admin: 06/11/21 06:06 Dose: 1,000 mg Documented by: Morphine Sulfate (Morphine 2 Mg/Ml Syringe) 2 mg IVPUSH Q2H PRN PRN Reason: Pain (severe 7-10) Stop: 06/11/21 07:46 Non-Formulary Medication (Tresiba) 24 units SQ ONETIME ONE Stop: 06/10/21 03:46 Last Admin: 06/10/21 03:45 Dose: 24 units Documented by: Carbidopa/Levodopa 25-250 Tab Own Med 1 tab PO 0600,1100,1500,1900,2300 [facility] Last Admin: 06/11/21 05:29 Dose: 1 tab Documented by: Non-Formulary Medication (Sitagliptin Phos/Metformin Hcl [Janumet 50-1,000 Mg]) 1 tab PO BID [facility] Non-Formulary Medication (Non-Formulary Medication 1 Each) 1 each PO BID [facility] Pantoprazole Sodium (Pantoprazole 40 Mg Vial) 80 mg IVPUSH BOLUS ONE Stop: 06/16/21 07:05 Last Admin: 06/16/21 08:03 Dose: 80 mg Documented by: Sodium Chloride (Sodium Chloride 0.9% 10 Ml Syringe) 10 ml FLUSH ONETIME PRN PRN Reason: IV FLUSH Stop: 06/13/21 13:00 Trospium (Trospium 20 Mg Tab) 10 mg PO BID [facility] Last Admin: 06/10/21 21:03 Dose: 10 mg Documented by: - Patient Data Lab Results Last 24 hrs: Laboratory Results - last 24 hr 06/18/21 06/19/21 06/19/21 Range/Units 22:20 00:14 06:45 WBC 10.62 H (4.23-9.07) K/mm3 RBC 4.34 L (4.63-6.08) M/mm3 Hgb 13.4 L (13.7-17.5) gm/dl Hct 41.3 (40.1-51.0) % MCV 95.2 H (79.0-92.2) fl MCH 30.9 (25.7-32.2) pg MCHC 32.4 (32.2-35.5) g/dl RDW Std Deviation 47.0 H (35.1-43.9) fL Plt Count 153 L (163-337) K/mm3 MPV 10.2 (9.4-12.3) fl Neut % (Auto) 93.6 H (34.0-67.9) % Lymph % (Auto) 2.9 L (21.8-53.1) % [place] % (Auto) 2.7 L (5.3-12.2) % Eos % (Auto) 0.1 L (0.8-7.0) Baso % (Auto) 0.1 (0.1-1.2) % Neut # (Auto) 9.94 H (1.78-5.38) K/mm3 Lymph # (Auto) 0.31 L (1.32-3.57) K/mm3 [place] # (Auto) 0.29 L (0.30-0.82) K/mm3 Eos # (Auto) 0.01 L (0.04-0.54) K/mm3 Baso # (Auto) 0.01 (0.01-0.08) K/mm3 Manual Slide Review Abnormal smear APTT 52.2 H (21.7-31.4) SECONDS Sodium (136-145) mEq/L Potassium (3.5-5.1) mEq/L Chloride (98-107) mEq/L Carbon Dioxide (21-32) mEq/L Anion Gap (5-15) BUN (7-18) mg/dL Creatinine (0.7-1.3) mg/dL Est Cr Clr Drug Dosing mL/min Estimated GFR (MDRD) (>60) mL/min BUN/Creatinine Ratio (14-18) Glucose (70-99) mg/dL POC Glucose 190 H (70-99) mg/dL Calcium (8.5-10.1) mg/dL Magnesium (1.8-2.4) mg/dL Total Bilirubin (0.2-1.0) mg/dL AST (15-37) U/L ALT (16-63) U/L Alkaline Phosphatase (46-116) U/L C-Reactive Protein (<1.0) mg/dL Total Protein (6.4-8.2) g/dl Albumin (3.4-5.0) g/dl Globulin gm/dL Albumin/Globulin Ratio (1-2) 06/19/21 06/19/21 06/19/21 Range/Units 06:45 06:45 07:21 WBC (4.23-9.07) K/mm3 RBC (4.63-6.08) M/mm3 Hgb (13.7-17.5) gm/dl Hct (40.1-51.0) % MCV (79.0-92.2) fl MCH (25.7-32.2) pg MCHC (32.2-35.5) g/dl RDW Std Deviation (35.1-43.9) fL Plt Count (163-337) K/mm3 MPV (9.4-12.3) fl Neut % (Auto) (34.0-67.9) % Lymph % (Auto) (21.8-53.1) % [place] % (Auto) (5.3-12.2) % Eos % (Auto) (0.8-7.0) Baso % (Auto) (0.1-1.2) % Neut # (Auto) (1.78-5.38) K/mm3 Lymph # (Auto) (1.32-3.57) K/mm3 [place] # (Auto) (0.30-0.82) K/mm3 Eos # (Auto) (0.04-0.54) K/mm3 Baso # (Auto) (0.01-0.08) K/mm3 Manual Slide Review APTT 35.5 H (21.7-31.4) SECONDS Sodium 137 (136-145) mEq/L Potassium 4.6 (3.5-5.1) mEq/L Chloride 100 (98-107) mEq/L Carbon Dioxide 29 (21-32) mEq/L Anion Gap 12.6 (5-15) BUN 26 H (7-18) mg/dL Creatinine 0.8 (0.7-1.3) mg/dL Est Cr Clr Drug Dosing 97.04 mL/min Estimated GFR (MDRD) > 60 (>60) mL/min BUN/Creatinine Ratio 32.5 H (14-18) Glucose 167 H (70-99) mg/dL POC Glucose 180 H (70-99) mg/dL Calcium 8.3 L (8.5-10.1) mg/dL Magnesium 2.0 (1.8-2.4) mg/dL Total Bilirubin 0.8 (0.2-1.0) mg/dL AST 18 (15-37) U/L ALT < 6 L (16-63) U/L Alkaline Phosphatase 40 L (46-116) U/L C-Reactive Protein 2.7 H* (<1.0) mg/dL Total Protein 5.8 L (6.4-8.2) g/dl Albumin 2.1 L (3.4-5.0) g/dl Globulin 3.7 gm/dL Albumin/Globulin Ratio 0.6 L (1-2) 06/19/21 06/19/21 06/19/21 Range/Units 11:47 12:40 16:27 WBC (4.23-9.07) K/mm3 RBC (4.63-6.08) M/mm3 Hgb (13.7-17.5) gm/dl Hct (40.1-51.0) % MCV (79.0-92.2) fl MCH (25.7-32.2) pg MCHC (32.2-35.5) g/dl RDW Std Deviation (35.1-43.9) fL Plt Count (163-337) K/mm3 MPV (9.4-12.3) fl Neut % (Auto) (34.0-67.9) % Lymph % (Auto) (21.8-53.1) % [place] % (Auto) (5.3-12.2) % Eos % (Auto) (0.8-7.0) Baso % (Auto) (0.1-1.2) % Neut # (Auto) (1.78-5.38) K/mm3 Lymph # (Auto) (1.32-3.57) K/mm3 [place] # (Auto) (0.30-0.82) K/mm3 Eos # (Auto) (0.04-0.54) K/mm3 Baso # (Auto) (0.01-0.08) K/mm3 Manual Slide Review APTT 48.1 H (21.7-31.4) SECONDS Sodium (136-145) mEq/L Potassium (3.5-5.1) mEq/L Chloride (98-107) mEq/L Carbon Dioxide (21-32) mEq/L Anion Gap (5-15) BUN (7-18) mg/dL Creatinine (0.7-1.3) mg/dL Est Cr Clr Drug Dosing mL/min Estimated GFR (MDRD) (>60) mL/min BUN/Creatinine Ratio (14-18) Glucose (70-99) mg/dL POC Glucose 305 H 308 H (70-99) mg/dL Calcium (8.5-10.1) mg/dL Magnesium (1.8-2.4) mg/dL Total Bilirubin (0.2-1.0) mg/dL AST (15-37) U/L ALT (16-63) U/L Alkaline Phosphatase (46-116) U/L C-Reactive Protein (<1.0) mg/dL Total Protein (6.4-8.2) g/dl Albumin (3.4-5.0) g/dl Globulin gm/dL Albumin/Globulin Ratio (1-2) Result Diagrams: 06/19/21 06:45 06/19/21 06:45 Sepsis Event Note - Focused Exam Vital Signs: Vital Signs Temp Pulse Resp BP Pulse Ox Pulse Ox 06/19/21 18:32 97 06/19/21 15:32 98.4 F 72 26 H 134/68 94 L 06/19/21 14:36 93 L 06/19/21 13:36 96 06/19/21 13:05 97.9 F 62 20 133/98 H 95 06/19/21 08:40 54 L 06/19/21 08:29 89 L 06/19/21 08:27 89 L - Plan Plan:: Case discussed in full. Agree with evaluation, assessment and plan.
[2021-06-19] MEDS: Albuterol/Ipratropium 3.0-0.5 MG/3 ML Neb Soln NEB PRN (08:26)
[2021-06-19] MEDS: Insulin Regular, Human 100 Units/ML 3 ML Vial SUBCUT SCH ×4 (09:19→21:34)
[2021-06-19] MEDS: Trospium 20 MG Tab PO SCH ×2 (09:24→21:29)
[2021-06-19] MEDS: Finasteride 5 MG Tab PO SCH (09:25)
[2021-06-19] MEDS: Dexamethasone 4 MG Tab PO SCH (09:25)
[2021-06-19] MEDS: Ascorbic Acid 500 MG Tab PO SCH (09:25)
[2021-06-19] MEDS: Zinc Sulfate 220 MG Cap PO SCH (09:25)
[2021-06-19] MEDS: Heparin Sodium/D5W 25,000 UNITS/500 ML BAG IV SCH (09:31)
[2021-06-19] MEDS: Melatonin 3 MG Tab PO SCH (21:28)
[2021-06-19] MEDS: Insulin Glargine,Hum.Rec.Anlog 100 UNIT/ML 3 ML Pen SUBCUT SCH (21:29)
[2021-06-19] MEDS: Tamsulosin 0.4 MG Cap.ER PO SCH (21:29)
[2021-06-20] MEDS: Heparin Sodium/D5W 25,000 UNITS/500 ML BAG IV SCH ×2 (01:56→16:21)
[2021-06-20] MEDS: Levothyroxine 50 MCG Tab PO SCH (06:02)
[2021-06-20] MEDS: CARBIDOPA PO SCH ×5 (06:02→22:44)
[2021-06-20] MEDS: Acetaminophen 325 MG Tab PO SCH ×3 (06:02→21:05)
[2021-06-20] MEDS: LEVODOPA PO SCH ×5 (06:02→22:44)
--- NOTE | 2021-06-20 07:17 | PCM.PN ---
<Bryn Bello - Last Filed: 06/20/21 11:18> - General Info Date of Service: 06/20/21 Admission Dx/Problem (Free Text): Admission Diagnosis/Problem Admission Diagnosis/Problem acute respiratory failure due to COVID-19 pneumonia. Functional Status: Reports: Pain Controlled, Tolerating Diet, Ambulating, Urinating, Incentive Spirometry, Other (Acapella ). Denies: New Symptoms - Review of Systems General: Reports: No Symptoms, Weakness, Fatigue. Denies: Fever, Malaise, Chills HEENT: Reports: No Symptoms. Denies: Headaches, Sore Throat Pulmonary: Reports: Shortness of Breath, Cough. Denies: Pleuritic Chest Pain, Sputum, Wheezing Cardiovascular: Reports: No Symptoms, Dyspnea on Exertion. Denies: Chest Pain, Palpitations, Edema Gastrointestinal: Reports: No Symptoms. Denies: Abdominal Pain, Constipation, Diarrhea, Nausea, Vomiting Genitourinary: Reports: No Symptoms. Denies: Pain Musculoskeletal: Reports: No Symptoms Skin: Reports: No Symptoms. Denies: Cyanosis Neurological: Reports: Pre-Existing Deficit (Baseline Parkinson's disease), Tremors, Difficulty Walking, Weakness, Gait Disturbance. Denies: Confusion, Dizziness, Headache, Numbness, Seizure, Syncope, Tingling Psychiatric: Reports: No Symptoms - Patient Data Vitals - Most Recent: Last Vital Signs Temp 98.2 F 06/20/21 04:33 Pulse 58 L 06/20/21 04:33 Resp 18 06/20/21 04:33 BP 126/55 L 06/20/21 04:33 Pulse Ox 91 L 06/20/21 06:39 Weight - Most Recent: 230 lb 14.4 oz I&O - Last 24 Hours: Intake & Output 06/19/21 06/20/21 06/20/21 22:59 06:59 14:59 Intake Total 734 985 Output Total 600 Balance 134 985 Lab Results Last 24 Hours: Laboratory Results - last 24 hr 06/19/21 06/19/21 06/19/21 Range/Units 06:45 06:45 07:21 WBC (4.23-9.07) K/mm3 RBC (4.63-6.08) M/mm3 Hgb (13.7-17.5) gm/dl Hct (40.1-51.0) % MCV (79.0-92.2) fl MCH (25.7-32.2) pg MCHC (32.2-35.5) g/dl RDW Std Deviation (35.1-43.9) fL Plt Count (163-337) K/mm3 MPV (9.4-12.3) fl Neut % (Auto) (34.0-67.9) % Lymph % (Auto) (21.8-53.1) % [place] % (Auto) (5.3-12.2) % Eos % (Auto) (0.8-7.0) Baso % (Auto) (0.1-1.2) % Neut # (Auto) (1.78-5.38) K/mm3 Lymph # (Auto) (1.32-3.57) K/mm3 [place] # (Auto) (0.30-0.82) K/mm3 Eos # (Auto) (0.04-0.54) K/mm3 Baso # (Auto) (0.01-0.08) K/mm3 APTT 35.5 H (21.7-31.4) SECONDS D-Dimer, Quantitative (0.19-0.50) mg/L Sodium 137 (136-145) mEq/L Potassium 4.6 (3.5-5.1) mEq/L Chloride 100 (98-107) mEq/L Carbon Dioxide 29 (21-32) mEq/L Anion Gap 12.6 (5-15) BUN 26 H (7-18) mg/dL Creatinine 0.8 (0.7-1.3) mg/dL Est Cr Clr Drug Dosing 97.04 mL/min Estimated GFR (MDRD) > 60 (>60) mL/min BUN/Creatinine Ratio 32.5 H (14-18) Glucose 167 H (70-99) mg/dL POC Glucose 180 H (70-99) mg/dL Calcium 8.3 L (8.5-10.1) mg/dL Magnesium 2.0 (1.8-2.4) mg/dL Total Bilirubin 0.8 (0.2-1.0) mg/dL AST 18 (15-37) U/L ALT < 6 L (16-63) U/L Alkaline Phosphatase 40 L (46-116) U/L C-Reactive Protein 2.7 H* (<1.0) mg/dL Total Protein 5.8 L (6.4-8.2) g/dl Albumin 2.1 L (3.4-5.0) g/dl Globulin 3.7 gm/dL Albumin/Globulin Ratio 0.6 L (1-2) 06/19/21 06/19/21 06/19/21 Range/Units 11:47 12:40 16:27 WBC (4.23-9.07) K/mm3 RBC (4.63-6.08) M/mm3 Hgb (13.7-17.5) gm/dl Hct (40.1-51.0) % MCV (79.0-92.2) fl MCH (25.7-32.2) pg MCHC (32.2-35.5) g/dl RDW Std Deviation (35.1-43.9) fL Plt Count (163-337) K/mm3 MPV (9.4-12.3) fl Neut % (Auto) (34.0-67.9) % Lymph % (Auto) (21.8-53.1) % [place] % (Auto) (5.3-12.2) % Eos % (Auto) (0.8-7.0) Baso % (Auto) (0.1-1.2) % Neut # (Auto) (1.78-5.38) K/mm3 Lymph # (Auto) (1.32-3.57) K/mm3 [place] # (Auto) (0.30-0.82) K/mm3 Eos # (Auto) (0.04-0.54) K/mm3 Baso # (Auto) (0.01-0.08) K/mm3 APTT 48.1 H (21.7-31.4) SECONDS D-Dimer, Quantitative (0.19-0.50) mg/L Sodium (136-145) mEq/L Potassium (3.5-5.1) mEq/L Chloride (98-107) mEq/L Carbon Dioxide (21-32) mEq/L Anion Gap (5-15) BUN (7-18) mg/dL Creatinine (0.7-1.3) mg/dL Est Cr Clr Drug Dosing mL/min Estimated GFR (MDRD) (>60) mL/min BUN/Creatinine Ratio (14-18) Glucose (70-99) mg/dL POC Glucose 305 H 308 H (70-99) mg/dL Calcium (8.5-10.1) mg/dL Magnesium (1.8-2.4) mg/dL Total Bilirubin (0.2-1.0) mg/dL AST (15-37) U/L ALT (16-63) U/L Alkaline Phosphatase (46-116) U/L C-Reactive Protein (<1.0) mg/dL Total Protein (6.4-8.2) g/dl Albumin (3.4-5.0) g/dl Globulin gm/dL Albumin/Globulin Ratio (1-2) 06/19/21 06/19/21 06/20/21 Range/Units 20:42 21:20 05:27 WBC 11.44 H (4.23-9.07) K/mm3 RBC 4.45 L (4.63-6.08) M/mm3 Hgb 13.4 L (13.7-17.5) gm/dl Hct 42.4 (40.1-51.0) % MCV 95.3 H (79.0-92.2) fl MCH 30.1 (25.7-32.2) pg MCHC 31.6 L (32.2-35.5) g/dl RDW Std Deviation 47.0 H (35.1-43.9) fL Plt Count 194 (163-337) K/mm3 MPV 10.5 (9.4-12.3) fl Neut % (Auto) 89.7 H (34.0-67.9) % Lymph % (Auto) 5.1 L (21.8-53.1) % [place] % (Auto) 4.2 L (5.3-12.2) % Eos % (Auto) 0.1 L (0.8-7.0) Baso % (Auto) 0.1 (0.1-1.2) % Neut # (Auto) 10.27 H (1.78-5.38) K/mm3 Lymph # (Auto) 0.58 L (1.32-3.57) K/mm3 [place] # (Auto) 0.48 (0.30-0.82) K/mm3 Eos # (Auto) 0.01 L (0.04-0.54) K/mm3 Baso # (Auto) 0.01 (0.01-0.08) K/mm3 APTT 85.5 H D (21.7-31.4) SECONDS D-Dimer, Quantitative (0.19-0.50) mg/L Sodium (136-145) mEq/L Potassium (3.5-5.1) mEq/L Chloride (98-107) mEq/L Carbon Dioxide (21-32) mEq/L Anion Gap (5-15) BUN (7-18) mg/dL Creatinine (0.7-1.3) mg/dL Est Cr Clr Drug Dosing mL/min Estimated GFR (MDRD) (>60) mL/min BUN/Creatinine Ratio (14-18) Glucose (70-99) mg/dL POC Glucose 241 H (70-99) mg/dL Calcium (8.5-10.1) mg/dL Magnesium (1.8-2.4) mg/dL Total Bilirubin (0.2-1.0) mg/dL AST (15-37) U/L ALT (16-63) U/L Alkaline Phosphatase (46-116) U/L C-Reactive Protein (<1.0) mg/dL Total Protein (6.4-8.2) g/dl Albumin (3.4-5.0) g/dl Globulin gm/dL Albumin/Globulin Ratio (1-2) 06/20/21 06/20/21 06/20/21 Range/Units 05:27 05:27 05:27 WBC (4.23-9.07) K/mm3 RBC (4.63-6.08) M/mm3 Hgb (13.7-17.5) gm/dl Hct (40.1-51.0) % MCV (79.0-92.2) fl MCH (25.7-32.2) pg MCHC (32.2-35.5) g/dl RDW Std Deviation (35.1-43.9) fL Plt Count (163-337) K/mm3 MPV (9.4-12.3) fl Neut % (Auto) (34.0-67.9) % Lymph % (Auto) (21.8-53.1) % [place] % (Auto) (5.3-12.2) % Eos % (Auto) (0.8-7.0) Baso % (Auto) (0.1-1.2) % Neut # (Auto) (1.78-5.38) K/mm3 Lymph # (Auto) (1.32-3.57) K/mm3 [place] # (Auto) (0.30-0.82) K/mm3 Eos # (Auto) (0.04-0.54) K/mm3 Baso # (Auto) (0.01-0.08) K/mm3 APTT 38.2 H D (21.7-31.4) SECONDS D-Dimer, Quantitative 11.34 H (0.19-0.50) mg/L Sodium 139 (136-145) mEq/L Potassium 4.2 (3.5-5.1) mEq/L Chloride 102 (98-107) mEq/L Carbon Dioxide 30 (21-32) mEq/L Anion Gap 11.2 (5-15) BUN 24 H (7-18) mg/dL Creatinine 1.0 (0.7-1.3) mg/dL Est Cr Clr Drug Dosing 77.63 mL/min Estimated GFR (MDRD) > 60 (>60) mL/min BUN/Creatinine Ratio 24.0 H (14-18) Glucose 82 (70-99) mg/dL POC Glucose (70-99) mg/dL Calcium 8.6 (8.5-10.1) mg/dL Magnesium (1.8-2.4) mg/dL Total Bilirubin (0.2-1.0) mg/dL AST (15-37) U/L ALT (16-63) U/L Alkaline Phosphatase (46-116) U/L C-Reactive Protein 1.5 H* (<1.0) mg/dL Total Protein (6.4-8.2) g/dl Albumin (3.4-5.0) g/dl Globulin gm/dL Albumin/Globulin Ratio (1-2) 06/20/21 Range/Units 05:27 WBC (4.23-9.07) K/mm3 RBC (4.63-6.08) M/mm3 Hgb (13.7-17.5) gm/dl Hct (40.1-51.0) % MCV (79.0-92.2) fl MCH (25.7-32.2) pg MCHC (32.2-35.5) g/dl RDW Std Deviation (35.1-43.9) fL Plt Count (163-337) K/mm3 MPV (9.4-12.3) fl Neut % (Auto) (34.0-67.9) % Lymph % (Auto) (21.8-53.1) % [place] % (Auto) (5.3-12.2) % Eos % (Auto) (0.8-7.0) Baso % (Auto) (0.1-1.2) % Neut # (Auto) (1.78-5.38) K/mm3 Lymph # (Auto) (1.32-3.57) K/mm3 [place] # (Auto) (0.30-0.82) K/mm3 Eos # (Auto) (0.04-0.54) K/mm3 Baso # (Auto) (0.01-0.08) K/mm3 APTT (21.7-31.4) SECONDS D-Dimer, Quantitative (0.19-0.50) mg/L Sodium (136-145) mEq/L Potassium (3.5-5.1) mEq/L Chloride (98-107) mEq/L Carbon Dioxide (21-32) mEq/L Anion Gap (5-15) BUN (7-18) mg/dL Creatinine (0.7-1.3) mg/dL Est Cr Clr Drug Dosing mL/min Estimated GFR (MDRD) (>60) mL/min BUN/Creatinine Ratio (14-18) Glucose (70-99) mg/dL POC Glucose 83 (70-99) mg/dL Calcium (8.5-10.1) mg/dL Magnesium (1.8-2.4) mg/dL Total Bilirubin (0.2-1.0) mg/dL AST (15-37) U/L ALT (16-63) U/L Alkaline Phosphatase (46-116) U/L C-Reactive Protein (<1.0) mg/dL Total Protein (6.4-8.2) g/dl Albumin (3.4-5.0) g/dl Globulin gm/dL Albumin/Globulin Ratio (1-2) Med Orders - Current: Current Medications Acetaminophen (Acetaminophen 325 Mg Tab) 650 mg PO Q8H [facility] Last Admin: 06/20/21 06:02 Dose: 650 mg Documented by: Al Hydroxide/Mg Hydroxide (Aluminum Hydroxide/Magnesium Hydroxide/Simethicone Susp 30 Ml Cup) 30 ml PO Q4H PRN PRN Reason: Heartburn Last Admin: 06/14/21 21:37 Dose: 30 ml Documented by: Albuterol (Albuterol 6.7 Gm Inhaler) 0 gm INH QID PRN PRN Reason: SOB/Wheezing Albuterol/Ipratropium (Albuterol/Ipratropium 3.0-0.5 Mg/3 Ml Neb Soln) 3 ml NEB Q4H PRN PRN Reason: Shortness Of Breath/wheezing Last Admin: 06/19/21 08:26 Dose: 3 ml Documented by: Alogliptin Benzoate (Alogliptin 12.5 Mg Tab) 12.5 mg PO BIDMEALS [facility] Last Admin: 06/20/21 06:02 Dose: 12.5 mg Documented by: Ascorbic Acid (Ascorbic Acid 500 Mg Tab) 500 mg PO DAILY [facility] Last Admin: 06/19/21 09:25 Dose: 500 mg Documented by: Baricitinib (Baricitinib 2 Mg Tab) 4 mg PO DAILY [facility] Stop: 06/26/21 09:01 Last Admin: 06/19/21 09:25 Dose: 4 mg Documented by: Dexamethasone (Dexamethasone 4 Mg Tab) 6 mg PO DAILY [facility] Docusate Sodium (Docusate Sodium 100 Mg Cap) 100 mg PO BID PRN PRN Reason: Constipation Last Admin: 06/14/21 12:07 Dose: 100 mg Documented by: Finasteride (Finasteride 5 Mg Tab) 5 mg PO DAILY [facility] Last Admin: 06/19/21 09:25 Dose: 5 mg Documented by: Guaifenesin/Phenylephrine HCl (Guaifenesin/Dextromethorphan 100-10 Mg/5 Ml Soln 5 Ml Cup) 10 ml PO Q6H PRN PRN Reason: Cough Piperacillin Sod/Tazobactam (Sod 4.5 gm/ Sodium Chloride) 100 mls @ 25 mls/hr IV Q8H [facility] Last Admin: 06/19/21 23:38 Dose: 25 mls/hr Documented by: Heparin Sodium/Dextrose (Heparin 25,000 Units In D5w 500 Ml) 25,000 units in 500 mls @ 26 mls/hr IV TITRATE [facility]; Protocol Last Admin: 06/20/21 01:56 Dose: 36.4 ml/hr, 36.4 mls/hr Documented by: Insulin Glargine (Insulin Glargine,Hum.Rec.Anlog 100 Unit/Ml 3 Ml Pen) 32 unit SUBCUT BEDTIME [facility] Last Admin: 06/19/21 21:29 Dose: 32 unit Documented by: Insulin Human Regular (Insulin Regular, Human 100 Units/Ml 3 Ml Vial) 0 unit SUBCUT QIDACANDBED [facility]; Protocol Last Admin: 06/19/21 21:34 Dose: 6 unit Documented by: Levothyroxine Sodium (Levothyroxine 50 Mcg Tab) 50 mcg PO ACBREAKFAST [facility] Last Admin: 06/20/21 06:02 Dose: 50 mcg Documented by: Melatonin (Melatonin 3 Mg Tab) 6 mg PO BEDTIME [facility] Last Admin: 06/19/21 21:28 Dose: 6 mg Documented by: Carbidopa/Levodopa 25-250 Tab Own Med 1 tab PO 0600,1100,1500,1900,2300 [facility] Last Admin: 06/20/21 06:02 Dose: 1 tab Documented by: Ondansetron HCl (Ondansetron 4 Mg Tab.Dis) 4 mg PO Q4H PRN PRN Reason: nausea, able to take PO Oxycodone HCl (Oxycodone 5 Mg Tab) 5 mg PO Q4H PRN PRN Reason: Pain (moderate 4-6) Last Admin: 06/16/21 17:59 Dose: 5 mg Documented by: Sodium Chloride (Sodium Chloride 0.9% 10 Ml Syringe) 10 ml FLUSH ASDIRECTED PRN PRN Reason: Keep Vein Open Last Admin: 06/10/21 00:24 Dose: 10 ml Documented by: Tamsulosin HCl (Tamsulosin 0.4 Mg Cap.Er) 0.4 mg PO BEDTIME [facility] Last Admin: 06/19/21 21:29 Dose: 0.4 mg Documented by: Temazepam (Temazepam 15 Mg Cap) 15 mg PO BEDTIME PRN PRN Reason: Sleep Last Admin: 06/13/21 21:18 Dose: 15 mg Documented by: Trolamine Salicylate (Trolamine Salicylate/Aloe Vera 10% Crm 85 Gm Tube) 1 gm TOP Q2H PRN PRN Reason: Pain (moderate 4-6) Last Admin: 06/19/21 00:55 Dose: 1 applic Documented by: Trospium (Trospium 20 Mg Tab) 20 mg PO BID [facility] Last Admin: 06/19/21 21:29 Dose: 20 mg Documented by: Zinc Sulfate (Zinc Sulfate 220 Mg Cap) 220 mg PO DAILY [facility] Last Admin: 06/19/21 09:25 Dose: 220 mg Documented by: Discontinued Medications Acetaminophen (Acetaminophen 325 Mg Tab) 975 mg PO NOW ONE Stop: 06/09/21 21:16 Last Admin: 06/09/21 21:41 Dose: 350 mg Documented by: Acetaminophen (Acetaminophen 650 Mg Supp) 650 mg RECTAL NOW ONE Stop: 06/09/21 21:52 Last Admin: 06/09/21 22:30 Dose: 650 mg Documented by: Acetaminophen (Acetaminophen 325 Mg Tab) 650 mg PO Q4H PRN PRN Reason: Pain (Mild 1-3)/fever Last Admin: 06/12/21 08:10 Dose: 650 mg Documented by: Acetaminophen (Acetaminophen 325 Mg Tab) 975 mg PO Q8HR [facility] Acetaminophen (Acetaminophen 325 Mg Tab) 650 mg PO Q8H [facility] Last Admin: 06/12/21 11:51 Dose: Not Given Documented by: Acetaminophen (Acetaminophen 325 Mg Tab) 650 mg PO Q8H [facility] Last Admin: 06/16/21 02:16 Dose: Not Given Documented by: Carbidopa/Levodopa (Carbidopa/Levodopa 25-100 Mg Tab) 1 tab PO QID [facility] Last Admin: 06/10/21 16:54 Dose: 1 tab Documented by: Dexamethasone (Dexamethasone 4 Mg/Ml 5 Ml Mdv) 6 mg IV ONETIME ONE Stop: 06/10/21 00:53 Last Admin: 06/10/21 01:31 Dose: 6 mg Documented by: Dexamethasone (Dexamethasone 4 Mg Tab) 6 mg PO DAILY [facility] Stop: 06/18/21 09:01 Last Admin: 06/12/21 08:55 Dose: 6 mg Documented by: Dexamethasone (Dexamethasone 4 Mg Tab) 6 mg PO BID [facility] Last Admin: 06/19/21 09:25 Dose: 6 mg Documented by: Enoxaparin Sodium (Enoxaparin 40 Mg/0.4 Ml Syringe) 40 mg SUBCUT DAILY [facility] Last Admin: 06/14/21 10:24 Dose: 40 mg Documented by: Enoxaparin Sodium (Enoxaparin 100 Mg/1 Ml Syringe) 100 mg SUBCUT Q12H [facility] Last Admin: 06/15/21 22:00 Dose: 100 mg Documented by: Glimepiride (Glimepiride 2 Mg Tab) 4 mg PO DAILY [facility] Last Admin: 06/10/21 09:51 Dose: 4 mg Documented by: Glimepiride (Glimepiride 2 Mg Tab) 2 mg PO WITHBREAKFAST [facility] Last Admin: 06/11/21 06:05 Dose: 2 mg Documented by: Sodium Chloride (Normal Saline) 1,000 mls @ 250 mls/hr IV ONETIME ONE Stop: 06/10/21 01:14 Last Infusion: 06/09/21 21:41 Dose: 250 mls/hr Documented by: Sodium Chloride (Normal Saline) Confirm Administered Dose 1,000 mls @ as directed .ROUTE .STK-MED ONE Stop: 06/09/21 21:19 Last Admin: 06/10/21 01:11 Dose: Not Given Documented by: Remdesivir 200 mg/ Sodium (Chloride) 250 mls @ 250 mls/hr IV ONETIME ONE Stop: 06/10/21 00:53 Last Admin: 06/10/21 01:47 Dose: 250 mls/hr Documented by: Remdesivir 100 mg/ Sodium (Chloride) 100 mls @ 100 mls/hr IV Q24H [facility] Stop: 06/13/21 21:59 Last Admin: 06/13/21 21:19 Dose: 100 mls/hr Documented by: Ceftriaxone Sodium 1 gm/ (Sodium Chloride) 100 mls @ 200 mls/hr IV Q24H [facility] Last Admin: 06/11/21 09:01 Dose: 200 mls/hr Documented by: Ceftriaxone Sodium 2 gm/ (Sodium Chloride) 100 mls @ 200 mls/hr IV Q24H [facility] Stop: 06/16/21 09:29 Last Admin: 06/15/21 09:19 Dose: 200 mls/hr Documented by: Azithromycin 500 mg/ Sodium (Chloride) 250 mls @ 250 mls/hr IV Q24H [facility] Stop: 06/14/21 08:59 Last Admin: 06/14/21 08:49 Dose: 250 mls/hr Documented by: Sodium Chloride (Normal Saline) 100 mls @ 75 mls/hr IV ASDIRECTED [facility] Stop: 06/13/21 13:00 Last Admin: 06/13/21 09:52 Dose: 75 mls/hr Documented by: Lactated Ringer's (Ringers, Lactated) 1,000 mls @ 150 mls/hr IV ASDIRECTED [facility] Last Admin: 06/16/21 06:45 Dose: 150 mls/hr Documented by: Lactated Ringer's (Ringers, Lactated) Confirm Administered Dose 1,000 mls @ as directed .ROUTE .STK-MED ONE Stop: 06/16/21 06:44 Last Admin: 06/16/21 08:07 Dose: Not Given Documented by: Piperacillin Sod/Tazobactam (Sod 4.5 gm/ Sodium Chloride) 100 mls @ 200 mls/hr IV ONETIME ONE Stop: 06/16/21 08:31 Last Admin: 06/16/21 09:13 Dose: 200 mls/hr Documented by: Lactated Ringer's (Ringers, Lactated) 1,000 mls @ 75 mls/hr IV ASDIRECTED [facility] Last Admin: 06/16/21 22:47 Dose: 75 mls/hr Documented by: Insulin Glargine (Insulin Glarg,Human.Rec.Analog 100 Unit/Ml) 24 unit SUBCUT BEDTIME [facility] Insulin Glargine (Insulin Glargine,Hum.Rec.Anlog 100 Unit/Ml 3 Ml Pen) 24 unit SUBCUT BEDTIME [facility] Last Admin: 06/10/21 21:05 Dose: 24 units Documented by: Insulin Glargine (Insulin Glargine,Hum.Rec.Anlog 100 Unit/Ml 3 Ml Pen) 28 unit SUBCUT BEDTIME [facility] Last Admin: 06/11/21 21:21 Dose: 28 units Documented by: Insulin Human Isoph/Insulin Regular (Insulin Nph/Insulin Regular,Human 70-30 100 Units/Ml 10 Ml Vial) 0 units SUBCUT BIDAC [facility]; Protocol Last Admin: 06/10/21 02:36 Dose: Not Given Documented by: Insulin Human Lispro (Insulin Lispro 100 Unit/Ml 3 Ml Kwikpen) 0 unit SUBCUT QIDACANDBED [facility]; Protocol Last Admin: 06/10/21 12:15 Dose: Not Given Documented by: Insulin Human Regular (Insulin Regular, Human 100 Units/Ml 3 Ml Vial) 0 unit SUBCUT [facility]; Protocol Last Admin: 06/12/21 09:12 Dose: 6 unit Documented by: Iopamidol (Iopamidol 755 Mg/Ml 100 Ml Bottle) 100 ml IVPUSH ONETIME ONE Stop: 06/09/21 23:54 Last Admin: 06/10/21 00:24 Dose: 100 ml Documented by: Iopamidol (Iopamidol 755 Mg/Ml 100 Ml Bottle) 100 ml IVPUSH ONETIME ONE Stop: 06/13/21 08:56 Last Admin: 06/13/21 09:52 Dose: 100 ml Documented by: Magnesium Hydroxide (Magnesium Hydroxide 400 Mg/5 Ml Susp 30 Ml Cup) 30 ml PO ONETIME ONE Stop: 06/13/21 06:01 Last Admin: 06/13/21 06:18 Dose: 30 ml Documented by: [facility] ([facility] 500 Mg [facility] Admin: 06/11/21 06:06 Dose: 1,000 mg Documented by: Morphine Sulfate (Morphine 2 Mg/Ml Syringe) 2 mg IVPUSH Q2H PRN PRN Reason: Pain (severe 7-10) Stop: 06/11/21 07:46 Non-Formulary Medication (Tresiba) 24 units SQ ONETIME ONE Stop: 06/10/21 03:46 Last Admin: 06/10/21 03:45 Dose: 24 units Documented by: Carbidopa/Levodopa 25-250 Tab Own Med 1 tab PO 0600,1100,1500,1900,2300 [facility] Last Admin: 06/11/21 05:29 Dose: 1 tab Documented by: Non-Formulary Medication (Sitagliptin Phos/Metformin Hcl [Janumet 50-1,000 Mg]) 1 tab PO BID [facility] Non-Formulary Medication (Non-Formulary Medication 1 Each) 1 each PO BID [facility] Pantoprazole Sodium (Pantoprazole 40 Mg Vial) 80 mg IVPUSH BOLUS ONE Stop: 06/16/21 07:05 Last Admin: 06/16/21 08:03 Dose: 80 mg Documented by: Sodium Chloride (Sodium Chloride 0.9% 10 Ml Syringe) 10 ml FLUSH ONETIME PRN PRN Reason: IV FLUSH Stop: 06/13/21 13:00 Trospium (Trospium 20 Mg Tab) 10 mg PO BID [facility] Last Admin: 06/10/21 21:03 Dose: 10 mg Documented by: - Exam Quality Assessment: Supplemental Oxygen (6L via nasal cannula), DVT Prophylaxis. No: Urine Catheter Urinary Catheter Total Time: 1Days 9Hours General: Alert, Oriented, Cooperative, No Acute Distress HEENT: Pupils Equal, Mucous Membr. Moist/[place] Neck: Supple, Trachea Midline Lungs: Normal Respiratory Effort, Decreased Breath Sounds (Improved), Crackles. No: Rhonchi, Wheezing Cardiovascular: Regular Rate, Regular Rhythm GI/Abdominal Exam: Normal Bowel Sounds, Soft, Non-Tender, No Distention (Male) Exam: Deferred Back Exam: Normal Inspection, Decreased Range of Motion Extremities: Normal Inspection, Non-Tender, Normal Capillary Refill, Pedal Edema (Race), Limited Range of Motion Skin: Warm, Dry, Intact Neurological: No New Focal Deficit Psy/Mental Status: Alert, Normal Affect, Normal Mood - Patient Data Lab Results Last 24 hrs: Laboratory Results - last 24 hr 06/19/21 06/19/21 06/19/21 Range/Units 06:45 06:45 07:21 WBC (4.23-9.07) K/mm3 RBC (4.63-6.08) M/mm3 Hgb (13.7-17.5) gm/dl Hct (40.1-51.0) % MCV (79.0-92.2) fl MCH (25.7-32.2) pg MCHC (32.2-35.5) g/dl RDW Std Deviation (35.1-43.9) fL Plt Count (163-337) K/mm3 MPV (9.4-12.3) fl Neut % (Auto) (34.0-67.9) % Lymph % (Auto) (21.8-53.1) % [place] % (Auto) (5.3-12.2) % Eos % (Auto) (0.8-7.0) Baso % (Auto) (0.1-1.2) % Neut # (Auto) (1.78-5.38) K/mm3 Lymph # (Auto) (1.32-3.57) K/mm3 [place] # (Auto) (0.30-0.82) K/mm3 Eos # (Auto) (0.04-0.54) K/mm3 Baso # (Auto) (0.01-0.08) K/mm3 APTT 35.5 H (21.7-31.4) SECONDS D-Dimer, Quantitative (0.19-0.50) mg/L Sodium 137 (136-145) mEq/L Potassium 4.6 (3.5-5.1) mEq/L Chloride 100 (98-107) mEq/L Carbon Dioxide 29 (21-32) mEq/L Anion Gap 12.6 (5-15) BUN 26 H (7-18) mg/dL Creatinine 0.8 (0.7-1.3) mg/dL Est Cr Clr Drug Dosing 97.04 mL/min Estimated GFR (MDRD) > 60 (>60) mL/min BUN/Creatinine Ratio 32.5 H (14-18) Glucose 167 H (70-99) mg/dL POC Glucose 180 H (70-99) mg/dL Calcium 8.3 L (8.5-10.1) mg/dL Magnesium 2.0 (1.8-2.4) mg/dL Total Bilirubin 0.8 (0.2-1.0) mg/dL AST 18 (15-37) U/L ALT < 6 L (16-63) U/L Alkaline Phosphatase 40 L (46-116) U/L C-Reactive Protein 2.7 H* (<1.0) mg/dL Total Protein 5.8 L (6.4-8.2) g/dl Albumin 2.1 L (3.4-5.0) g/dl Globulin 3.7 gm/dL Albumin/Globulin Ratio 0.6 L (1-2) 06/19/21 06/19/21 06/19/21 Range/Units 11:47 12:40 16:27 WBC (4.23-9.07) K/mm3 RBC (4.63-6.08) M/mm3 Hgb (13.7-17.5) gm/dl Hct (40.1-51.0) % MCV (79.0-92.2) fl MCH (25.7-32.2) pg MCHC (32.2-35.5) g/dl RDW Std Deviation (35.1-43.9) fL Plt Count (163-337) K/mm3 MPV (9.4-12.3) fl Neut % (Auto) (34.0-67.9) % Lymph % (Auto) (21.8-53.1) % [place] % (Auto) (5.3-12.2) % Eos % (Auto) (0.8-7.0) Baso % (Auto) (0.1-1.2) % Neut # (Auto) (1.78-5.38) K/mm3 Lymph # (Auto) (1.32-3.57) K/mm3 [place] # (Auto) (0.30-0.82) K/mm3 Eos # (Auto) (0.04-0.54) K/mm3 Baso # (Auto) (0.01-0.08) K/mm3 APTT 48.1 H (21.7-31.4) SECONDS D-Dimer, Quantitative (0.19-0.50) mg/L Sodium (136-145) mEq/L Potassium (3.5-5.1) mEq/L Chloride (98-107) mEq/L Carbon Dioxide (21-32) mEq/L Anion Gap (5-15) BUN (7-18) mg/dL Creatinine (0.7-1.3) mg/dL Est Cr Clr Drug Dosing mL/min Estimated GFR (MDRD) (>60) mL/min BUN/Creatinine Ratio (14-18) Glucose (70-99) mg/dL POC Glucose 305 H 308 H (70-99) mg/dL Calcium (8.5-10.1) mg/dL Magnesium (1.8-2.4) mg/dL Total Bilirubin (0.2-1.0) mg/dL AST (15-37) U/L ALT (16-63) U/L Alkaline Phosphatase (46-116) U/L C-Reactive Protein (<1.0) mg/dL Total Protein (6.4-8.2) g/dl Albumin (3.4-5.0) g/dl Globulin gm/dL Albumin/Globulin Ratio (1-2) 06/19/21 06/19/21 06/20/21 Range/Units 20:42 21:20 05:27 WBC 11.44 H (4.23-9.07) K/mm3 RBC 4.45 L (4.63-6.08) M/mm3 Hgb 13.4 L (13.7-17.5) gm/dl Hct 42.4 (40.1-51.0) % MCV 95.3 H (79.0-92.2) fl MCH 30.1 (25.7-32.2) pg MCHC 31.6 L (32.2-35.5) g/dl RDW Std Deviation 47.0 H (35.1-43.9) fL Plt Count 194 (163-337) K/mm3 MPV 10.5 (9.4-12.3) fl Neut % (Auto) 89.7 H (34.0-67.9) % Lymph % (Auto) 5.1 L (21.8-53.1) % [place] % (Auto) 4.2 L (5.3-12.2) % Eos % (Auto) 0.1 L (0.8-7.0) Baso % (Auto) 0.1 (0.1-1.2) % Neut # (Auto) 10.27 H (1.78-5.38) K/mm3 Lymph # (Auto) 0.58 L (1.32-3.57) K/mm3 [place] # (Auto) 0.48 (0.30-0.82) K/mm3 Eos # (Auto) 0.01 L (0.04-0.54) K/mm3 Baso # (Auto) 0.01 (0.01-0.08) K/mm3 APTT 85.5 H D (21.7-31.4) SECONDS D-Dimer, Quantitative (0.19-0.50) mg/L Sodium (136-145) mEq/L Potassium (3.5-5.1) mEq/L Chloride (98-107) mEq/L Carbon Dioxide (21-32) mEq/L Anion Gap (5-15) BUN (7-18) mg/dL Creatinine (0.7-1.3) mg/dL Est Cr Clr Drug Dosing mL/min Estimated GFR (MDRD) (>60) mL/min BUN/Creatinine Ratio (14-18) Glucose (70-99) mg/dL POC Glucose 241 H (70-99) mg/dL Calcium (8.5-10.1) mg/dL Magnesium (1.8-2.4) mg/dL Total Bilirubin (0.2-1.0) mg/dL AST (15-37) U/L ALT (16-63) U/L Alkaline Phosphatase (46-116) U/L C-Reactive Protein (<1.0) mg/dL Total Protein (6.4-8.2) g/dl Albumin (3.4-5.0) g/dl Globulin gm/dL Albumin/Globulin Ratio (1-2) 06/20/21 06/20/21 06/20/21 Range/Units 05:27 05:27 05:27 WBC (4.23-9.07) K/mm3 RBC (4.63-6.08) M/mm3 Hgb (13.7-17.5) gm/dl Hct (40.1-51.0) % MCV (79.0-92.2) fl MCH (25.7-32.2) pg MCHC (32.2-35.5) g/dl RDW Std Deviation (35.1-43.9) fL Plt Count (163-337) K/mm3 MPV (9.4-12.3) fl Neut % (Auto) (34.0-67.9) % Lymph % (Auto) (21.8-53.1) % [place] % (Auto) (5.3-12.2) % Eos % (Auto) (0.8-7.0) Baso % (Auto) (0.1-1.2) % Neut # (Auto) (1.78-5.38) K/mm3 Lymph # (Auto) (1.32-3.57) K/mm3 [place] # (Auto) (0.30-0.82) K/mm3 Eos # (Auto) (0.04-0.54) K/mm3 Baso # (Auto) (0.01-0.08) K/mm3 APTT 38.2 H D (21.7-31.4) SECONDS D-Dimer, Quantitative 11.34 H (0.19-0.50) mg/L Sodium 139 (136-145) mEq/L Potassium 4.2 (3.5-5.1) mEq/L Chloride 102 (98-107) mEq/L Carbon Dioxide 30 (21-32) mEq/L Anion Gap 11.2 (5-15) BUN 24 H (7-18) mg/dL Creatinine 1.0 (0.7-1.3) mg/dL Est Cr Clr Drug Dosing 77.63 mL/min Estimated GFR (MDRD) > 60 (>60) mL/min BUN/Creatinine Ratio 24.0 H (14-18) Glucose 82 (70-99) mg/dL POC Glucose (70-99) mg/dL Calcium 8.6 (8.5-10.1) mg/dL Magnesium (1.8-2.4) mg/dL Total Bilirubin (0.2-1.0) mg/dL AST (15-37) U/L ALT (16-63) U/L Alkaline Phosphatase (46-116) U/L C-Reactive Protein 1.5 H* (<1.0) mg/dL Total Protein (6.4-8.2) g/dl Albumin (3.4-5.0) g/dl Globulin gm/dL Albumin/Globulin Ratio (1-2) 06/20/21 Range/Units 05:27 WBC (4.23-9.07) K/mm3 RBC (4.63-6.08) M/mm3 Hgb (13.7-17.5) gm/dl Hct (40.1-51.0) % MCV (79.0-92.2) fl MCH (25.7-32.2) pg MCHC (32.2-35.5) g/dl RDW Std Deviation (35.1-43.9) fL Plt Count (163-337) K/mm3 MPV (9.4-12.3) fl Neut % (Auto) (34.0-67.9) % Lymph % (Auto) (21.8-53.1) % [place] % (Auto) (5.3-12.2) % Eos % (Auto) (0.8-7.0) Baso % (Auto) (0.1-1.2) % Neut # (Auto) (1.78-5.38) K/mm3 Lymph # (Auto) (1.32-3.57) K/mm3 [place] # (Auto) (0.30-0.82) K/mm3 Eos # (Auto) (0.04-0.54) K/mm3 Baso # (Auto) (0.01-0.08) K/mm3 APTT (21.7-31.4) SECONDS D-Dimer, Quantitative (0.19-0.50) mg/L Sodium (136-145) mEq/L Potassium (3.5-5.1) mEq/L Chloride (98-107) mEq/L Carbon Dioxide (21-32) mEq/L Anion Gap (5-15) BUN (7-18) mg/dL Creatinine (0.7-1.3) mg/dL Est Cr Clr Drug Dosing mL/min Estimated GFR (MDRD) (>60) mL/min BUN/Creatinine Ratio (14-18) Glucose (70-99) mg/dL POC Glucose 83 (70-99) mg/dL Calcium (8.5-10.1) mg/dL Magnesium (1.8-2.4) mg/dL Total Bilirubin (0.2-1.0) mg/dL AST (15-37) U/L ALT (16-63) U/L Alkaline Phosphatase (46-116) U/L C-Reactive Protein (<1.0) mg/dL Total Protein (6.4-8.2) g/dl Albumin (3.4-5.0) g/dl Globulin gm/dL Albumin/Globulin Ratio (1-2) Result Diagrams: 06/20/21 05:27 06/20/21 05:27 Sepsis Event Note - Evaluation Sepsis Screening Result: No Definite Risk - Focused Exam Vital Signs: Vital Signs Temp Pulse Resp BP Pulse Ox Pulse Ox 06/20/21 06:39 91 L 06/20/21 06:36 93 L 06/20/21 04:33 98.2 F 58 L 18 126/55 L 87 L 06/19/21 21:44 95 06/19/21 20:00 95 06/19/21 19:29 97.5 F 71 22 H 132/82 95 - Problem List & Annotations (1) Acute respiratory failure due to COVID-19 SNOMED Code(s): 023889054 Code(s): U07.1 - COVID-19; J96.00 - ACUTE RESPIRATORY FAILURE, UNSP W HYPOXIA OR HYPERCAPNIA Status: Acute Priority: High Current Visit: Yes (2) Pneumonia due to COVID-19 virus SNOMED Code(s): 911230017249155092 Code(s): U07.1 - COVID-19; J12.82 - PNEUMONIA DUE TO CORONAVIRUS DISEASE 2019 Status: Acute Priority: High Current Visit: Yes (3) Diabetes mellitus type 2 in nonobese SNOMED Code(s): 553959630 Code(s): E11.9 - TYPE 2 DIABETES MELLITUS WITHOUT COMPLICATIONS Status: Chronic Priority: High Current Visit: Yes (4) Parkinson's disease dementia SNOMED Code(s): 559195608934036 Code(s): G20 - PARKINSON'S DISEASE; F02.80 - DEMENTIA IN OTH DISEASES CLASSD ELSWHR W/O BEHAVRL DISTURB Status: Chronic Priority: High Current Visit: Yes Qualifiers: Dementia behavioral disturbance: without behavioral disturbance Qualified Code(s): G20 - Parkinson's disease; F02.80 - Dementia in other diseases classified elsewhere without behavioral disturbance (5) Elevated C-reactive protein (CRP) SNOMED Code(s): 983779296370711 Code(s): R79.82 - ELEVATED C-REACTIVE PROTEIN (CRP) Status: Acute Priority: High Current Visit: Yes (6) Elevated d-dimer SNOMED Code(s): 166012088 Code(s): R79.89 - OTHER SPECIFIED ABNORMAL FINDINGS OF BLOOD CHEMISTRY Status: Acute Priority: High Current Visit: Yes (7) Elevated procalcitonin SNOMED Code(s): 152635512, 512871631 Code(s): R79.89 - OTHER SPECIFIED ABNORMAL FINDINGS OF BLOOD CHEMISTRY Status: Resolved Priority: High Current Visit: Yes (8) GI bleed SNOMED Code(s): 73442885 Code(s): K92.2 - GASTROINTESTINAL HEMORRHAGE, UNSPECIFIED Status: Resolved Priority: Medium Current Visit: Yes Qualifiers: GI bleed type/associated pathology: unspecified gastrointestinal hemorrhage type Qualified Code(s): K92.2 - Gastrointestinal hemorrhage, unspecified (9) Aspiration into airway SNOMED Code(s): 618443435 Code(s): T17.908A - UNSP FB IN RESP TRACT, PART UNSP CAUSING OTH INJURY, INIT Status: Suspected Priority: High Current Visit: Yes Qualifiers: Encounter type: initial encounter Qualified Code(s): T17.908A - Unspecified foreign body in respiratory tract, part unspecified causing other injury, initial encounter - Problem List Review Problem List Initiated/Reviewed/Updated: Yes - My Orders Last 24 Hours: My Active Orders 06/20/21 08:00 Chest 1V Frontal [CR] Routine 06/20/21 09:00 dexAMETHasone 6 mg PO DAILY 06/21/21 05:11 BASIC METABOLIC PANEL,BMP [CHEM] AM CBC WITH AUTO DIFF [HEME] AM CRP [C-REACTIVE PROTEIN] [CHEM] AM 06/22/21 05:11 BASIC METABOLIC PANEL,BMP [CHEM] AM CBC WITH AUTO DIFF [HEME] AM CRP [C-REACTIVE PROTEIN] [CHEM] AM DD [D-DIMER QUANTITATIVE] [COAG] Q48H 06/23/21 05:11 BASIC METABOLIC PANEL,BMP [CHEM] AM CBC WITH AUTO DIFF [HEME] AM CRP [C-REACTIVE PROTEIN] [CHEM] AM 06/24/21 05:11 DD [D-DIMER QUANTITATIVE] [COAG] Q48H - Plan Plan:: The patient is a 71-year-old gentleman who has been admitted to [facility] secondary to pneumonia associated with COVID-19. The patient has been started on dexamethasone 6 mg p.o. daily. The patient also has been started on remdesivir 100 mg IV daily as he was given 200 mg IV in the emergency department. The patient will be kept on carb constant diet and Accu-Cheks before meals and at bedtime. He is on insulin sliding scale low-dose. The patient has a history of what appears to be Parkinson's dementia and he is also on carbidopa/levodopa and this has been continued as a part of his home medications. The patient's DVT prophylaxis will be the use of Lovenox 40 mg subcutaneous daily. Oxygen will be titrated to keep his saturations around 92%. Repeat laboratory studies have been ordered. PT OT also has been ordered for the patient. Because of the patient's comorbidities and his COVID-19 pneumonia his overall prognosis is poor. 06/11/2021 71-year-old male with a history of Parkinson's disease admitted for treatment of his COVID-19 pneumonia. Patient was noted to be very confused on admission and this has improved greatly. He is alert to person place and time. He continues on dexamethasone and remdesivir. Labs today show a WBC of 7.26. Hemoglobin 12.7. Platelet 178,000. Patient has been on Rocephin and there is no clear indication for this. We will therefore discontinue it. Procalcitonin is pending. Blood cultures are negative. D-dimer is elevated at 2.61 which is an improvement over yesterday. Patient CTA was negative however we will also check lower extremities for DVT. No obvious signs of DVT at this point. Sodium 138. Potassium 4.5. Chloride 103. Carbon dioxide 26. Anion gap 13.5. BUN is 31. Creatinine 1.0. GFR is improved to greater than 60. Glucose has been ranging from 345-237. We will discontinue patient's Metformin but we will continue alogliptin. We will increase patient's long-acting insulin to 28 units at bedtime as he has been receiving significant amounts of sliding scale insulin. Magnesium is 2.2. Bilirubin 0.4. AST is 32, ALT 9, alkaline phosphatase 40. CRP is 12.0. Protein is 5.9. Albumin is 2.3. There is some confusion with when the patient actually developed symptoms whether or not his symptoms have been improving or worsening. Because of this we will keep the patient on quarantine for a total of 10 days unless he requires high flow. This would mean he may come off of isolation at 06/15/2021 at 23:59. Discussed plan of care with patient. He reports he would like us to discuss this with his daughters. There is some [id number] on whether or not to continue remdesivir and ultimately decision is made to continue this as patient's liver enzymes and renal function look good. Family requests zinc and vitamin C be started and this seems reasonable. They would like vitamin D be started and we will check a level of this prior to prescribing. All questions answered. Unknown length of stay due to severity of COVID-19 illness. 06/12/2021 This is a 71-year-old male with a history of Parkinson's disease who is admitted to a floor for altered mental status and COVID-19 pneumonia. His mental status remains greatly improved with baseline confusion. He is on 6 to 7 L via nasal cannula with saturations in the upper 80s to low 90s. His procalcitonin from yesterday returned quite elevated at 2.04. Because of this we will resume Rocephin 2 g and start 3 days worth of azithromycin. We will check a UA on the patient as well. Labs today show a WBC of 5.09. Hemoglobin 12.5. Platelet of 202,000. Neutrophils are elevated 85.1%. Sodium 139. Potassium 4.4. Chloride 102. Carbon dioxide 31. Anion gap 10.4. BUN is 31. Creatinine 1.1. GFR is greater than 60. Glucose has remained elevated at 2 48-2 82 we will continue to monitor this and adjust insulin as needed. Magnesium is 2.2. Bilirubin 0.5. AST is 27, ALT 18, alkaline phosphatase 39. CRP is down to 5.6. Albumin is 2.2. We will continue remdesivir and dexamethasone. Patient's vitamin D level was within normal limits at 81.0 we will not start vitamin D supplementation. Patient is reporting significant joint pain and we will order as needed Aspercreme and scheduled Tylenol. Unknown length of stay due to severity of COVID-19 illness. 06/13/2021 71-year-old male with a history of Parkinson's disease was admitted to the floor for treatment of his COVID-19 pneumonia. Unfortunately patient's oxygen sa turations have continued to drop he is now requiring high flow oxygen 55 L with an FiO2 of 85%. Overall he states he feels worse today than he did yesterday. Blood cultures remain negative. Labs show WBC of 4.54. Hemoglobin is 13.2. Platelets 200,000. Neutrophils are elevated 84.8%. D-dimer increased today to 6.74. Because of this and his worsening saturations patient was sent for CTA, which was negative although there was noted suboptimal opacification of the main or segmental branches. It is noted that smaller subsegmental pulmonary emboli could be missed. Diffuse parenchymal densities within both sides of the chest are noted however there is slight improvement also noted. Other chronic findings are noted. Sodium is 140. Potassium 4.6. Chloride 102. Carbon dioxide 32. BUN is 24. Creatinine 1.0. GFR is greater than 60. Blood glucose readings have improved from 1 62-2 25. Magnesium is 1.9. Bilirubin 0.5. AST is 28, ALT 7, alkaline phosphatase 41. CRP is 3.0. Protein is 6.2. Albumin is 2.2. UA was obtained yesterday and was negative however 1+ protein, 2+ glu cose, and trace ketones are noted. At the patient's request of his daughter Clemencia was contacted at [phone] to discuss progress and possibly starting baricitinib. They will get back to us regarding this. We will consider moving patient to ICU should a bed become available given his rapidly deteriorating status. Unknown length of stay due to severity of Covid symptoms. We will continue remdesivir and increase dexamethasone to 6 mg twice daily starting today. Patient also continues on 3 days worth of azithromycin and 5 days worth of Rocephin. We will recheck a procalcitonin given his prior elevated resolved. Length of stay greater than 96 hours due to need for continued COVID-19 treatm ent. 06/14/2021 71-year-old male with history of Parkinson's disease admitted to the floor for COVID-19. Saturations have improved today and he remains on 50 L high flow with an FiO2 of 65%. Blood cultures remain negative. Vital signs otherwise been stable. He completed azithromycin and continues on Rocephin. He completed his remdesivir treatment. As the patient was having rapidly worsening oxygen saturations baricitinib was recommended yesterday and after discussion with the patient and amongst family members they ultimately agreed in the evening hours. WBC is 4.92. Hemoglobin 14.1. Platelet 194,000. Neutrophils are 88.4%. Blood smear is normal. Sodium is 139. Potassium 4.5. Chloride 100. Carbon oxide 32. Anion gap 11.5. BUN is 22. Creatinine 0.9. GFR greater than 60. Glucose is 97-1 58. Magnesium 2.1. Bilirubin 0.6. AST is 28, ALT is 15, alkaline phosphatase 46. CRP is 4.6. Albumin is 2.4. We will continue current treatment plan and attempt to wean off oxygen as the patient tolerates. Unknown length of stay. Because of his significant worsening in oxygen saturations over the last 12-24 hours I have recommended baricitinib. I spoke with Yehuda and his daughter Elena via phone to provide information about baricitinib. I offered the "fax sheet for patients and parents/caregivers, for baricitinib" to read and review. I stated that therapy has been approved by an emergency use authorization process and has not fully been FDA reviewed or approved. I shared potential risks from the therapy including increased risk for serious infections, anaphylaxis, and reaction to medication. I discussed there are other potential treatment options that are currently not FDA approved to treat COVID-19. Offered opportunity to ask questions and all questions were answered. Yehuda and Elena voiced understanding and after some discussion agreed to proceed with treatment. 06/15/2021 This is a 71-year-old male with a history of Parkinson's disease who was admitted to the floor for treatment of COVID-19 pneumonia. His saturations have been improving with therapy and he is currently on 40 L with an FiO2 of 50%. He continues on Rocephin with his last dose tomorrow and he completed azithromycin and remdesivir. He also continues on dexamethasone 6 mg twice daily and baricitinib. Today patient's D-dimer was noted to be 20.38. Patient has had 2 CTAs with PE protocol and has had his legs scanned for DVT. Given his improving oxygen saturations and lack of leg pain or other signs of DVT, combined with his prior imaging we will forego scanning and begin 1 mg/kg twice daily Lovenox treatment. We will continue to monitor D-dimers as ordered. Otherwise patient states that he is feeling better. His lung sounds are improving with better aeration of the lower amado. He has not been sleeping well at night and we will start him on scheduled melatonin. We will also start the let me sleep protocol. Given his continued stability we will decrease vital signs to 4 times daily. Labs today show a leukocytosis of 9.30. Hemoglobin is 14.4. Platelet 203,000. Smear is normal. D-dimer as mentioned prior was 20.38. Sodium 139. Potassium 4.4. Chloride 102. Carbon dioxide 28. Anion gap 13.4. BUN is 29. Creatinine 1.0. GFR greater than 60. Glucose has been between 147 and 244. Calcium is 8.7. Magnesium 2.1. Total bilirubin 0.6. AST is 27, ALT 14, alkaline phosphatase 46. CRP is 2.7. Given the severity of his symptoms he will require 20 days of isolation/quarantine. Unknown length of stay due to continued severity of COVID-19 pneumonia. Goal saturations will be 2 L or less via nasal cannula prior to discharge. Patient's daughter Clemencia updated on patient's progress and plan of care at request of patient. 06/16/2021 71-year-old male with history of Parkinson's disease being treated for COVID-19 pneumonia. He had a large coffee-ground emesis this morning. Yesterday we increased his Lovenox 200 mg every 12 hours per full dose protocol for anticoag ulation. Patient's D-dimer had increased to 20, but CTA of the chest done on June 13 was negative for PE but slightly suboptimal opacification of the pulmonary arteries. Because the smaller subsegmental pulmonary emboli could be missed and he had a continuing increase in his D-dimer we felt that prudent to treat him with full anticoagulation. Also of note venous Doppler studies were negative for DVT. There was concern that patient could have aspirated when he had the large coffee-ground emesis. Chest x-ray was performed which showed improvement in the parenchymal densities within both sides of the chest. He was switched over to Zosyn to cover for aspiration pneumonia. He had an increase oxygen requirement and high flow requirement precipitating the increase coverage. Also, patient is much more lethargic and answering and only short sentences. Family was updated. Of note his hemoglobin actually increased and he appears to be hemoconcentrated. He was on 35 L of high flow overnight until he had this episode and now he is on CPAP 9 cm of water pressure with 15 L bled in. He has been given a bolus of 250 mL of LR and started on a rate of 150 mL to correct his apparent hypo volemia. Patient has mild tachycardia with the increase of his hemoglobin from 14.4-16.2. White count did also increased from 9.3-11.45. Platelet count is stable at 188. Creatinine increased from 1.0-1.7 making his estimated GFR 40. BUN is now 26. CRP has decreased from 2.7-1.9. He has a slight anion gap of 16.6. We will repeat his hemoglobin at noon. Start on Protonix 80 mg IV bolus then 40 mg twice daily. We will stop his Lovenox and continue SCDs. He is much more lethargic today, but this could be due to stress so we will continue to monitor his mental status. He was transferred to the ICU. 06/17/2021 71-year-old male with Parkinson's being treated for COVID-19 pneumonia had a significant improvement in the last 24 hours. He was moved out of the ICU back to the floor. He has had a small drop in his hemoglobin from 14 yesterday afternoon down to 12.8 this morning. He has not had any more bleeding. We did stop his anticoagulation secondary to his coffee-ground emesis. He is on Protonix twice daily. He is currently on 6 L nasal cannula with oxygen saturations in the low 90s. His CRP did increase up to 13.1 from 1.9. This is likely secondary to the inflammatory response yesterday. He continues on Zosyn for antibiotics. Blood sugars this afternoon were high at 249. Renal function has also improved BUN of 29 with a creatinine of 0.9. Continue other care. 06/18/2021 This is a 71-year-old male admitted to the floor for COVID-19 pneumonia. Over the weekend he was noted to have a large coffee-ground emesis and there was concern that he may have aspirated. He was started on Zosyn and that continues. His oxygen saturations have decreased and he is currently on 40 L with an FiO2 of 55%. Today he was complaining of chest pain a twelve-lead EKG was obtained as noted with no findings of any acute ischemia. Troponin was checked and was less than 0.017. CK-MB was 4.2. CRP has decreased to 6.9 white count today is up to 12.20 of note patient continues on dexamethasone 6 mg twice daily. We will look at decreasing this in the near future. Platelet are 167,000. Neutrophils are elevated 91%. Smear shows normal-appearing red blood cells and slight thrombocytopenia with normal morphology. Neutrophilia is also noted. PT today was 11.6. INR was 1.05. aPTT was 25.1. D-dimer was quite high at 25. 45. Electrolytes look good. Renal function continues with a GFR greater than 60. Blood sugars have been between 172 and 302. Bilirubin 0.5. AST is 27, ALT 10, alkaline phosphatase 44. Albumin is improved to 2.2. Discussed elevated D-dimer with Dr. Wolf, attending hospitalist, and we will restart VTE pharmacological prophylaxis using a heparin drip with VTE protocol. We will not give initial bolus dose. We will continue to monitor for signs of GI bleed and will continue Protonix twice daily. Procalcitonin is pending and we will monitor this for guidance with antibiotic therapy. Overall he states that he is doing a bit better than yesterday and that he feels okay. Unknown length of stay due to severity of symptoms. 06/19/2021 71-year-old male admitted to the floor for COVID-19 pneumonia who subsequently had adverse reaction to full-strength Lovenox treatment resulting in GI bleed and possible questionable aspiration. Patient remains on Zosyn every 8 hours. Given his very high D-dimer at 24 and continued high risk for VTE we have started on heparin drip without boluses and are slowly working her way upward monitoring his APTT. Today he reports he feels quite a bit better. He continues to have chronic knee pain but has been responding well to Aspercreme for this. He is on 40 L with an FiO2 of 50% high flow. WBC is up to 10.62 but this may be steroid related. Platelets are down to 153,000. Neutrophils are 93.6%. Smear does not note neutropenia. Sodium is 137. Potassium 4.6. Anion gap is 12.6. BUN is 26. Creatinine 0.8. GFR greater than 60. Glucose has been 1 67-2 57. Magnesium is 2.0. Bilirubin 0.8. AST is 18, ALT less than 6, alkaline phosphatase is 40. CRP is 2.7. Albumin is 2.1. We will decrease patient's steroid from 6 mg dexamethasone twice daily to 6 mg dexamethasone daily. He remains on baricitinib. He continues to utilize his incentive spirometer and Acapella. PT and OT continue to work with him. Unknown length of stay due to severity of symptoms. 06/20/2021 71-year-old male admitted to the floor for COVID-19 pneumonia treatment. Throughout the course of his stay he did have a noted GI bleed and was subsequently moved to the ICU but was downgraded when this stopped. He continues to have low oxygen saturations. He has been weaned to 6 L via nasal cannula today and is off of high flow at the moment. He continues to be very weak and have difficulty with ambulation. Will likely require SNF placement after discharge. Overall reports he is doing okay today. Lung sounds remain quite restricted but improved. It is felt he may have aspirated when he had an episode of coffee-ground emesis and he remains on Zosyn for this. This will be discontinued tomorrow after 5 days of treatment. He has had no fevers or signs of worsening or systemic infection. Labs today show an elevated WBC of 11.44 which is likely due to his steroids. Hemoglobin is 13.4. Platelet under 94,000. D-dimer today is 11.34. He remains on a heparin drip with a PTT of 38.2. Sodium is 139. Potassium is 4.2. Chloride 102. Carbon dioxide 30. Anion gap 11.2. BUN is 24. Creatinine 1.0. GFR greater than 60. Glucose has been between 308 and 82. We will decrease his long-acting insulin has a steroid has been decreased. CRP today is 1.5. Unknown length of stay due to severity of symptoms. As noted patient will likely need SNF placement at discharge. <Matthew Wolf Jr - Last Filed: 06/20/21 18:50> - Patient Data Vitals - Most Recent: Last Vital Signs Temp 97.7 F 06/20/21 08:01 Pulse 68 06/20/21 12:28 Resp 18 06/20/21 12:28 BP 120/52 L 06/20/21 12:28 Pulse Ox 93 L 06/20/21 12:28 I&O - Last 24 Hours: Intake & Output 06/20/21 06/20/21 06/20/21 06:59 14:59 22:59 Intake Total 516 430 2549 Output Total 500 Balance 637 375 9579 Lab Results Last 24 Hours: Laboratory Results - last 24 hr 06/19/21 06/19/21 06/20/21 Range/Units 20:42 21:20 05:27 WBC 11.44 H (4.23-9.07) K/mm3 RBC 4.45 L (4.63-6.08) M/mm3 Hgb 13.4 L (13.7-17.5) gm/dl Hct 42.4 (40.1-51.0) % MCV 95.3 H (79.0-92.2) fl MCH 30.1 (25.7-32.2) pg MCHC 31.6 L (32.2-35.5) g/dl RDW Std Deviation 47.0 H (35.1-43.9) fL Plt Count 194 (163-337) K/mm3 MPV 10.5 (9.4-12.3) fl Neut % (Auto) 89.7 H (34.0-67.9) % Lymph % (Auto) 5.1 L (21.8-53.1) % [place] % (Auto) 4.2 L (5.3-12.2) % Eos % (Auto) 0.1 L (0.8-7.0) Baso % (Auto) 0.1 (0.1-1.2) % Neut # (Auto) 10.27 H (1.78-5.38) K/mm3 Lymph # (Auto) 0.58 L (1.32-3.57) K/mm3 [place] # (Auto) 0.48 (0.30-0.82) K/mm3 Eos # (Auto) 0.01 L (0.04-0.54) K/mm3 Baso # (Auto) 0.01 (0.01-0.08) K/mm3 APTT 85.5 H D (21.7-31.4) SECONDS D-Dimer, Quantitative (0.19-0.50) mg/L Sodium (136-145) mEq/L Potassium (3.5-5.1) mEq/L Chloride (98-107) mEq/L Carbon Dioxide (21-32) mEq/L Anion Gap (5-15) BUN (7-18) mg/dL Creatinine (0.7-1.3) mg/dL Est Cr Clr Drug Dosing mL/min Estimated GFR (MDRD) (>60) mL/min BUN/Creatinine Ratio (14-18) Glucose (70-99) mg/dL POC Glucose 241 H (70-99) mg/dL Calcium (8.5-10.1) mg/dL C-Reactive Protein (<1.0) mg/dL 06/20/21 06/20/21 06/20/21 Range/Units 05:27 05:27 05:27 WBC (4.23-9.07) K/mm3 RBC (4.63-6.08) M/mm3 Hgb (13.7-17.5) gm/dl Hct (40.1-51.0) % MCV (79.0-92.2) fl MCH (25.7-32.2) pg MCHC (32.2-35.5) g/dl RDW Std Deviation (35.1-43.9) fL Plt Count (163-337) K/mm3 MPV (9.4-12.3) fl Neut % (Auto) (34.0-67.9) % Lymph % (Auto) (21.8-53.1) % [place] % (Auto) (5.3-12.2) % Eos % (Auto) (0.8-7.0) Baso % (Auto) (0.1-1.2) % Neut # (Auto) (1.78-5.38) K/mm3 Lymph # (Auto) (1.32-3.57) K/mm3 [place] # (Auto) (0.30-0.82) K/mm3 Eos # (Auto) (0.04-0.54) K/mm3 Baso # (Auto) (0.01-0.08) K/mm3 APTT 38.2 H D (21.7-31.4) SECONDS D-Dimer, Quantitative 11.34 H (0.19-0.50) mg/L Sodium 139 (136-145) mEq/L Potassium 4.2 (3.5-5.1) mEq/L Chloride 102 (98-107) mEq/L Carbon Dioxide 30 (21-32) mEq/L Anion Gap 11.2 (5-15) BUN 24 H (7-18) mg/dL Creatinine 1.0 (0.7-1.3) mg/dL Est Cr Clr Drug Dosing 77.63 mL/min Estimated GFR (MDRD) > 60 (>60) mL/min BUN/Creatinine Ratio 24.0 H (14-18) Glucose 82 (70-99) mg/dL POC Glucose (70-99) mg/dL Calcium 8.6 (8.5-10.1) mg/dL C-Reactive Protein 1.5 H* (<1.0) mg/dL 06/20/21 06/20/21 06/20/21 Range/Units 05:27 10:15 11:59 WBC (4.23-9.07) K/mm3 RBC (4.63-6.08) M/mm3 Hgb (13.7-17.5) gm/dl Hct (40.1-51.0) % MCV (79.0-92.2) fl MCH (25.7-32.2) pg MCHC (32.2-35.5) g/dl RDW Std Deviation (35.1-43.9) fL Plt Count (163-337) K/mm3 MPV (9.4-12.3) fl Neut % (Auto) (34.0-67.9) % Lymph % (Auto) (21.8-53.1) % [place] % (Auto) (5.3-12.2) % Eos % (Auto) (0.8-7.0) Baso % (Auto) (0.1-1.2) % Neut # (Auto) (1.78-5.38) K/mm3 Lymph # (Auto) (1.32-3.57) K/mm3 [place] # (Auto) (0.30-0.82) K/mm3 Eos # (Auto) (0.04-0.54) K/mm3 Baso # (Auto) (0.01-0.08) K/mm3 APTT 88.0 H D (21.7-31.4) SECONDS D-Dimer, Quantitative (0.19-0.50) mg/L Sodium (136-145) mEq/L Potassium (3.5-5.1) mEq/L Chloride (98-107) mEq/L Carbon Dioxide (21-32) mEq/L Anion Gap (5-15) BUN (7-18) mg/dL Creatinine (0.7-1.3) mg/dL Est Cr Clr Drug Dosing mL/min Estimated GFR (MDRD) (>60) mL/min BUN/Creatinine Ratio (14-18) Glucose (70-99) mg/dL POC Glucose 83 124 H (70-99) mg/dL Calcium (8.5-10.1) mg/dL C-Reactive Protein (<1.0) mg/dL 06/20/21 Range/Units 17:39 WBC (4.23-9.07) K/mm3 RBC (4.63-6.08) M/mm3 Hgb (13.7-17.5) gm/dl Hct (40.1-51.0) % MCV (79.0-92.2) fl MCH (25.7-32.2) pg MCHC (32.2-35.5) g/dl RDW Std Deviation (35.1-43.9) fL Plt Count (163-337) K/mm3 MPV (9.4-12.3) fl Neut % (Auto) (34.0-67.9) % Lymph % (Auto) (21.8-53.1) % [place] % (Auto) (5.3-12.2) % Eos % (Auto) (0.8-7.0) Baso % (Auto) (0.1-1.2) % Neut # (Auto) (1.78-5.38) K/mm3 Lymph # (Auto) (1.32-3.57) K/mm3 [place] # (Auto) (0.30-0.82) K/mm3 Eos # (Auto) (0.04-0.54) K/mm3 Baso # (Auto) (0.01-0.08) K/mm3 APTT (21.7-31.4) SECONDS D-Dimer, Quantitative (0.19-0.50) mg/L Sodium (136-145) mEq/L Potassium (3.5-5.1) mEq/L Chloride (98-107) mEq/L Carbon Dioxide (21-32) mEq/L Anion Gap (5-15) BUN (7-18) mg/dL Creatinine (0.7-1.3) mg/dL Est Cr Clr Drug Dosing mL/min Estimated GFR (MDRD) (>60) mL/min BUN/Creatinine Ratio (14-18) Glucose (70-99) mg/dL POC Glucose 288 H (70-99) mg/dL Calcium (8.5-10.1) mg/dL C-Reactive Protein (<1.0) mg/dL Med Orders - Current: Current Medications Acetaminophen (Acetaminophen 325 Mg Tab) 650 mg PO Q8H [facility] Last Admin: 06/20/21 14:08 Dose: 650 mg Documented by: Al Hydroxide/Mg Hydroxide (Aluminum Hydroxide/Magnesium Hydroxide/Simethicone Susp 30 Ml Cup) 30 ml PO Q4H PRN PRN Reason: Heartburn Last Admin: 06/14/21 21:37 Dose: 30 ml Documented by: Albuterol (Albuterol 6.7 Gm Inhaler) 0 gm INH QID PRN PRN Reason: SOB/Wheezing Last Admin: 06/20/21 10:07 Dose: 2 each Documented by: Albuterol/Ipratropium (Albuterol/Ipratropium 3.0-0.5 Mg/3 Ml Neb Soln) 3 ml NEB Q4H PRN PRN Reason: Shortness Of Breath/wheezing Last Admin: 06/19/21 08:26 Dose: 3 ml Documented by: Alogliptin Benzoate (Alogliptin 12.5 Mg Tab) 12.5 mg PO BIDMEALS [facility] Last Admin: 06/20/21 16:28 Dose: 12.5 mg Documented by: Ascorbic Acid (Ascorbic Acid 500 Mg Tab) 500 mg PO DAILY [facility] Last Admin: 06/20/21 08:54 Dose: 500 mg Documented by: Baricitinib (Baricitinib 2 Mg Tab) 4 mg PO DAILY [facility] Stop: 06/26/21 09:01 Last Admin: 06/20/21 08:53 Dose: 4 mg Documented by: Dexamethasone (Dexamethasone 4 Mg Tab) 6 mg PO DAILY [facility] Last Admin: 06/20/21 08:53 Dose: 6 mg Documented by: Docusate Sodium (Docusate Sodium 100 Mg Cap) 100 mg PO BID PRN PRN Reason: Constipation Last Admin: 06/14/21 12:07 Dose: 100 mg Documented by: Finasteride (Finasteride 5 Mg Tab) 5 mg PO DAILY [facility] Last Admin: 06/20/21 08:53 Dose: 5 mg Documented by: Guaifenesin/Phenylephrine HCl (Guaifenesin/Dextromethorphan 100-10 Mg/5 Ml Soln 5 Ml Cup) 10 ml PO Q6H PRN PRN Reason: Cough Piperacillin Sod/Tazobactam (Sod 4.5 gm/ Sodium Chloride) 100 mls @ 25 mls/hr IV Q8H [facility] Stop: 06/21/21 16:01 Last Admin: 06/20/21 16:28 Dose: 25 mls/hr Documented by: Heparin Sodium/Dextrose (Heparin 25,000 Units In D5w 500 Ml) 25,000 units in 500 mls @ 26 mls/hr IV TITRATE [facility]; Protocol Last Admin: 06/20/21 16:21 Dose: 36.8 ml/hr, 36.8 mls/hr Documented by: Insulin Glargine (Insulin Glargine,Hum.Rec.Anlog 100 Unit/Ml 3 Ml Pen) 28 unit SUBCUT BEDTIME [facility] Insulin Human Regular (Insulin Regular, Human 100 Units/Ml 3 Ml Vial) 0 unit SUBCUT QIDACANDBED [facility]; Protocol Last Admin: 06/20/21 17:43 Dose: 9 unit Documented by: Levothyroxine Sodium (Levothyroxine 50 Mcg Tab) 50 mcg PO ACBREAKFAST [facility] Last Admin: 06/20/21 06:02 Dose: 50 mcg Documented by: Melatonin (Melatonin 3 Mg Tab) 6 mg PO BEDTIME [facility] Last Admin: 06/19/21 21:28 Dose: 6 mg Documented by: Carbidopa/Levodopa 25-250 Tab Own Med 1 tab PO 0600,1100,1500,1900,2300 [facility] Last Admin: 06/20/21 18:10 Dose: 1 tab Documented by: Ondansetron HCl (Ondansetron 4 Mg Tab.Dis) 4 mg PO Q4H PRN PRN Reason: nausea, able to take PO Oxycodone HCl (Oxycodone 5 Mg Tab) 5 mg PO Q4H PRN PRN Reason: Pain (moderate 4-6) Last Admin: 06/20/21 11:00 Dose: 5 mg Documented by: Sodium Chloride (Sodium Chloride 0.9% 10 Ml Syringe) 10 ml FLUSH ASDIRECTED PRN PRN Reason: Keep Vein Open Last Admin: 06/10/21 00:24 Dose: 10 ml Documented by: Tamsulosin HCl (Tamsulosin 0.4 Mg Cap.Er) 0.4 mg PO BEDTIME [facility] Last Admin: 06/19/21 21:29 Dose: 0.4 mg Documented by: Temazepam (Temazepam 15 Mg Cap) 15 mg PO BEDTIME PRN PRN Reason: Sleep Last Admin: 06/13/21 21:18 Dose: 15 mg Documented by: Trolamine Salicylate (Trolamine Salicylate/Aloe Vera 10% Crm 85 Gm Tube) 1 gm TOP Q2H PRN PRN Reason: Pain (moderate 4-6) Last Admin: 06/19/21 00:55 Dose: 1 applic Documented by: Trospium (Trospium 20 Mg Tab) 20 mg PO BID [facility] Last Admin: 06/20/21 08:53 Dose: 20 mg Documented by: Zinc Sulfate (Zinc Sulfate 220 Mg Cap) 220 mg PO DAILY [facility] Last Admin: 06/20/21 08:53 Dose: 220 mg Documented by: Discontinued Medications Acetaminophen (Acetaminophen 325 Mg Tab) 975 mg PO NOW ONE Stop: 06/09/21 21:16 Last Admin: 06/09/21 21:41 Dose: 350 mg Documented by: Acetaminophen (Acetaminophen 650 Mg Supp) 650 mg RECTAL NOW ONE Stop: 06/09/21 21:52 Last Admin: 06/09/21 22:30 Dose: 650 mg Documented by: Acetaminophen (Acetaminophen 325 Mg Tab) 650 mg PO Q4H PRN PRN Reason: Pain (Mild 1-3)/fever Last Admin: 06/12/21 08:10 Dose: 650 mg Documented by: Acetaminophen (Acetaminophen 325 Mg Tab) 975 mg PO Q8HR [facility] Acetaminophen (Acetaminophen 325 Mg Tab) 650 mg PO Q8H [facility] Last Admin: 06/12/21 11:51 Dose: Not Given Documented by: Acetaminophen (Acetaminophen 325 Mg Tab) 650 mg PO Q8H [facility] Last Admin: 06/16/21 02:16 Dose: Not Given Documented by: Carbidopa/Levodopa (Carbidopa/Levodopa 25-100 Mg Tab) 1 tab PO QID [facility] Last Admin: 06/10/21 16:54 Dose: 1 tab Documented by: Dexamethasone (Dexamethasone 4 Mg/Ml 5 Ml Mdv) 6 mg IV ONETIME ONE Stop: 06/10/21 00:53 Last Admin: 06/10/21 01:31 Dose: 6 mg Documented by: Dexamethasone (Dexamethasone 4 Mg Tab) 6 mg PO DAILY [facility] Stop: 06/18/21 09:01 Last Admin: 06/12/21 08:55 Dose: 6 mg Documented by: Dexamethasone (Dexamethasone 4 Mg Tab) 6 mg PO BID [facility] Last Admin: 06/19/21 09:25 Dose: 6 mg Documented by: Enoxaparin Sodium (Enoxaparin 40 Mg/0.4 Ml Syringe) 40 mg SUBCUT DAILY [facility] Last Admin: 06/14/21 10:24 Dose: 40 mg Documented by: Enoxaparin Sodium (Enoxaparin 100 Mg/1 Ml Syringe) 100 mg SUBCUT Q12H [facility] Last Admin: 06/15/21 22:00 Dose: 100 mg Documented by: Glimepiride (Glimepiride 2 Mg Tab) 4 mg PO DAILY [facility] Last Admin: 06/10/21 09:51 Dose: 4 mg Documented by: Glimepiride (Glimepiride 2 Mg Tab) 2 mg PO WITHBREAKFAST [facility] Last Admin: 06/11/21 06:05 Dose: 2 mg Documented by: Sodium Chloride (Normal Saline) 1,000 mls @ 250 mls/hr IV ONETIME ONE Stop: 06/10/21 01:14 Last Infusion: 06/09/21 21:41 Dose: 250 mls/hr Documented by: Sodium Chloride (Normal Saline) Confirm Administered Dose 1,000 mls @ as directed .ROUTE .STK-MED ONE Stop: 06/09/21 21:19 Last Admin: 06/10/21 01:11 Dose: Not Given Documented by: Remdesivir 200 mg/ Sodium (Chloride) 250 mls @ 250 mls/hr IV ONETIME ONE Stop: 06/10/21 00:53 Last Admin: 06/10/21 01:47 Dose: 250 mls/hr Documented by: Remdesivir 100 mg/ Sodium (Chloride) 100 mls @ 100 mls/hr IV Q24H [facility] Stop: 06/13/21 21:59 Last Admin: 06/13/21 21:19 Dose: 100 mls/hr Documented by: Ceftriaxone Sodium 1 gm/ (Sodium Chloride) 100 mls @ 200 mls/hr IV Q24H [facility] Last Admin: 06/11/21 09:01 Dose: 200 mls/hr Documented by: Ceftriaxone Sodium 2 gm/ (Sodium Chloride) 100 mls @ 200 mls/hr IV Q24H [facility] Stop: 06/16/21 09:29 Last Admin: 06/15/21 09:19 Dose: 200 mls/hr Documented by: Azithromycin 500 mg/ Sodium (Chloride) 250 mls @ 250 mls/hr IV Q24H [facility] Stop: 06/14/21 08:59 Last Admin: 06/14/21 08:49 Dose: 250 mls/hr Documented by: Sodium Chloride (Normal Saline) 100 mls @ 75 mls/hr IV ASDIRECTED [facility] Stop: 06/13/21 13:00 Last Admin: 06/13/21 09:52 Dose: 75 mls/hr Documented by: Lactated Ringer's (Ringers, Lactated) 1,000 mls @ 150 mls/hr IV ASDIRECTED [facility] Last Admin: 06/16/21 06:45 Dose: 150 mls/hr Documented by: Lactated Ringer's (Ringers, Lactated) Confirm Administered Dose 1,000 mls @ as directed .ROUTE .STK-MED ONE Stop: 06/16/21 06:44 Last Admin: 06/16/21 08:07 Dose: Not Given Documented by: Piperacillin Sod/Tazobactam (Sod 4.5 gm/ Sodium Chloride) 100 mls @ 200 mls/hr IV ONETIME ONE Stop: 06/16/21 08:31 Last Admin: 06/16/21 09:13 Dose: 200 mls/hr Documented by: Lactated Ringer's (Ringers, Lactated) 1,000 mls @ 75 mls/hr IV ASDIRECTED [facility] Last Admin: 06/16/21 22:47 Dose: 75 mls/hr Documented by: Insulin Glargine (Insulin Glarg,Human.Rec.Analog 100 Unit/Ml) 24 unit SUBCUT BEDTIME [facility] Insulin Glargine (Insulin Glargine,Hum.Rec.Anlog 100 Unit/Ml 3 Ml Pen) 24 unit SUBCUT BEDTIME [facility] Last Admin: 06/10/21 21:05 Dose: 24 units Documented by: Insulin Glargine (Insulin Glargine,Hum.Rec.Anlog 100 Unit/Ml 3 Ml Pen) 28 unit SUBCUT BEDTIME [facility] Last Admin: 06/11/21 21:21 Dose: 28 units Documented by: Insulin Glargine (Insulin Glargine,Hum.Rec.Anlog 100 Unit/Ml 3 Ml Pen) 32 unit SUBCUT BEDTIME [facility] Last Admin: 06/19/21 21:29 Dose: 32 unit Documented by: Insulin Human Isoph/Insulin Regular (Insulin Nph/Insulin Regular,Human 70-30 100 Units/Ml 10 Ml Vial) 0 units SUBCUT BIDAC [facility]; Protocol Last Admin: 06/10/21 02:36 Dose: Not Given Documented by: Insulin Human Lispro (Insulin Lispro 100 Unit/Ml 3 Ml Kwikpen) 0 unit SUBCUT QIDACANDBED [facility]; Protocol Last Admin: 06/10/21 12:15 Dose: Not Given Documented by: Insulin Human Regular (Insulin Regular, Human 100 Units/Ml 3 Ml Vial) 0 unit SUBCUT TIDPC [facility]; Protocol Last Admin: 06/12/21 09:12 Dose: 6 unit Documented by: Iopamidol (Iopamidol 755 Mg/Ml 100 Ml Bottle) 100 ml IVPUSH ONETIME ONE Stop: 06/09/21 23:54 Last Admin: 06/10/21 00:24 Dose: 100 ml Documented by: Iopamidol (Iopamidol 755 Mg/Ml 100 Ml Bottle) 100 ml IVPUSH ONETIME ONE Stop: 06/13/21 08:56 Last Admin: 06/13/21 09:52 Dose: 100 ml Documented by: Magnesium Hydroxide (Magnesium Hydroxide 400 Mg/5 Ml Susp 30 Ml Cup) 30 ml PO ONETIME ONE Stop: 06/13/21 06:01 Last Admin: 06/13/21 06:18 Dose: 30 ml Documented by: [facility] ([facility] 500 Mg [facility] Admin: 06/11/21 06:06 Dose: 1,000 mg Documented by: Morphine Sulfate (Morphine 2 Mg/Ml Syringe) 2 mg IVPUSH Q2H PRN PRN Reason: Pain (severe 7-10) Stop: 06/11/21 07:46 Non-Formulary Medication (Tresiba) 24 units SQ ONETIME ONE Stop: 06/10/21 03:46 Last Admin: 06/10/21 03:45 Dose: 24 units Documented by: Carbidopa/Levodopa 25-250 Tab Own Med 1 tab PO 0600,1100,1500,1900,2300 [facility] Last Admin: 06/11/21 05:29 Dose: 1 tab Documented by: Non-Formulary Medication (Sitagliptin Phos/Metformin Hcl [Janumet 50-1,000 Mg]) 1 tab PO BID [facility] Non-Formulary Medication (Non-Formulary Medication 1 Each) 1 each PO BID [facility] Pantoprazole Sodium (Pantoprazole 40 Mg Vial) 80 mg IVPUSH BOLUS ONE Stop: 06/16/21 07:05 Last Admin: 06/16/21 08:03 Dose: 80 mg Documented by: Sodium Chloride (Sodium Chloride 0.9% 10 Ml Syringe) 10 ml FLUSH ONETIME PRN PRN Reason: IV FLUSH Stop: 06/13/21 13:00 Trospium (Trospium 20 Mg Tab) 10 mg PO BID [facility] Last Admin: 06/10/21 21:03 Dose: 10 mg Documented by: - Patient Data Lab Results Last 24 hrs: Laboratory Results - last 24 hr 11/09/21 11/09/21 11/10/21 Range/Units 20:42 21:20 05:27 WBC 11.44 H (4.23-9.07) K/mm3 RBC 4.45 L (4.63-6.08) M/mm3 Hgb 13.4 L (13.7-17.5) gm/dl Hct 42.4 (40.1-51.0) % MCV 95.3 H (79.0-92.2) fl MCH 30.1 (25.7-32.2) pg MCHC 31.6 L (32.2-35.5) g/dl RDW Std Deviation 47.0 H (35.1-43.9) fL Plt Count 194 (163-337) K/mm3 MPV 10.5 (9.4-12.3) fl Neut % (Auto) 89.7 H (34.0-67.9) % Lymph % (Auto) 5.1 L (21.8-53.1) % [place] % (Auto) 4.2 L (5.3-12.2) % Eos % (Auto) 0.1 L (0.8-7.0) Baso % (Auto) 0.1 (0.1-1.2) % Neut # (Auto) 10.27 H (1.78-5.38) K/mm3 Lymph # (Auto) 0.58 L (1.32-3.57) K/mm3 [place] # (Auto) 0.48 (0.30-0.82) K/mm3 Eos # (Auto) 0.01 L (0.04-0.54) K/mm3 Baso # (Auto) 0.01 (0.01-0.08) K/mm3 APTT 85.5 H D (21.7-31.4) SECONDS D-Dimer, Quantitative (0.19-0.50) mg/L Sodium (136-145) mEq/L Potassium (3.5-5.1) mEq/L Chloride (98-107) mEq/L Carbon Dioxide (21-32) mEq/L Anion Gap (5-15) BUN (7-18) mg/dL Creatinine (0.7-1.3) mg/dL Est Cr Clr Drug Dosing mL/min Estimated GFR (MDRD) (>60) mL/min BUN/Creatinine Ratio (14-18) Glucose (70-99) mg/dL POC Glucose 241 H (70-99) mg/dL Calcium (8.5-10.1) mg/dL C-Reactive Protein (<1.0) mg/dL 06/20/21 06/20/21 06/20/21 Range/Units 05:27 05:27 05:27 WBC (4.23-9.07) K/mm3 RBC (4.63-6.08) M/mm3 Hgb (13.7-17.5) gm/dl Hct (40.1-51.0) % MCV (79.0-92.2) fl MCH (25.7-32.2) pg MCHC (32.2-35.5) g/dl RDW Std Deviation (35.1-43.9) fL Plt Count (163-337) K/mm3 MPV (9.4-12.3) fl Neut % (Auto) (34.0-67.9) % Lymph % (Auto) (21.8-53.1) % [place] % (Auto) (5.3-12.2) % Eos % (Auto) (0.8-7.0) Baso % (Auto) (0.1-1.2) % Neut # (Auto) (1.78-5.38) K/mm3 Lymph # (Auto) (1.32-3.57) K/mm3 [place] # (Auto) (0.30-0.82) K/mm3 Eos # (Auto) (0.04-0.54) K/mm3 Baso # (Auto) (0.01-0.08) K/mm3 APTT 38.2 H D (21.7-31.4) SECONDS D-Dimer, Quantitative 11.34 H (0.19-0.50) mg/L Sodium 139 (136-145) mEq/L Potassium 4.2 (3.5-5.1) mEq/L Chloride 102 (98-107) mEq/L Carbon Dioxide 30 (21-32) mEq/L Anion Gap 11.2 (5-15) BUN 24 H (7-18) mg/dL Creatinine 1.0 (0.7-1.3) mg/dL Est Cr Clr Drug Dosing 77.63 mL/min Estimated GFR (MDRD) > 60 (>60) mL/min BUN/Creatinine Ratio 24.0 H (14-18) Glucose 82 (70-99) mg/dL POC Glucose (70-99) mg/dL Calcium 8.6 (8.5-10.1) mg/dL C-Reactive Protein 1.5 H* (<1.0) mg/dL 06/20/21 06/20/21 06/20/21 Range/Units 05:27 10:15 11:59 WBC (4.23-9.07) K/mm3 RBC (4.63-6.08) M/mm3 Hgb (13.7-17.5) gm/dl Hct (40.1-51.0) % MCV (79.0-92.2) fl MCH (25.7-32.2) pg MCHC (32.2-35.5) g/dl RDW Std Deviation (35.1-43.9) fL Plt Count (163-337) K/mm3 MPV (9.4-12.3) fl Neut % (Auto) (34.0-67.9) % Lymph % (Auto) (21.8-53.1) % [place] % (Auto) (5.3-12.2) % Eos % (Auto) (0.8-7.0) Baso % (Auto) (0.1-1.2) % Neut # (Auto) (1.78-5.38) K/mm3 Lymph # (Auto) (1.32-3.57) K/mm3 [place] # (Auto) (0.30-0.82) K/mm3 Eos # (Auto) (0.04-0.54) K/mm3 Baso # (Auto) (0.01-0.08) K/mm3 APTT 88.0 H D (21.7-31.4) SECONDS D-Dimer, Quantitative (0.19-0.50) mg/L Sodium (136-145) mEq/L Potassium (3.5-5.1) mEq/L Chloride (98-107) mEq/L Carbon Dioxide (21-32) mEq/L Anion Gap (5-15) BUN (7-18) mg/dL Creatinine (0.7-1.3) mg/dL Est Cr Clr Drug Dosing mL/min Estimated GFR (MDRD) (>60) mL/min BUN/Creatinine Ratio (14-18) Glucose (70-99) mg/dL POC Glucose 83 124 H (70-99) mg/dL Calcium (8.5-10.1) mg/dL C-Reactive Protein (<1.0) mg/dL 06/20/21 Range/Units 17:39 WBC (4.23-9.07) K/mm3 RBC (4.63-6.08) M/mm3 Hgb (13.7-17.5) gm/dl Hct (40.1-51.0) % MCV (79.0-92.2) fl MCH (25.7-32.2) pg MCHC (32.2-35.5) g/dl RDW Std Deviation (35.1-43.9) fL Plt Count (163-337) K/mm3 MPV (9.4-12.3) fl Neut % (Auto) (34.0-67.9) % Lymph % (Auto) (21.8-53.1) % [place] % (Auto) (5.3-12.2) % Eos % (Auto) (0.8-7.0) Baso % (Auto) (0.1-1.2) % Neut # (Auto) (1.78-5.38) K/mm3 Lymph # (Auto) (1.32-3.57) K/mm3 [place] # (Auto) (0.30-0.82) K/mm3 Eos # (Auto) (0.04-0.54) K/mm3 Baso # (Auto) (0.01-0.08) K/mm3 APTT (21.7-31.4) SECONDS D-Dimer, Quantitative (0.19-0.50) mg/L Sodium (136-145) mEq/L Potassium (3.5-5.1) mEq/L Chloride (98-107) mEq/L Carbon Dioxide (21-32) mEq/L Anion Gap (5-15) BUN (7-18) mg/dL Creatinine (0.7-1.3) mg/dL Est Cr Clr Drug Dosing mL/min Estimated GFR (MDRD) (>60) mL/min BUN/Creatinine Ratio (14-18) Glucose (70-99) mg/dL POC Glucose 288 H (70-99) mg/dL Calcium (8.5-10.1) mg/dL C-Reactive Protein (<1.0) mg/dL Result Diagrams: 06/20/21 05:27 06/20/21 05:27 Sepsis Event Note - Focused Exam Vital Signs: Vital Signs Temp Pulse Resp BP Pulse Ox Pulse Ox 06/20/21 12:28 68 18 120/52 L 93 L 06/20/21 10:08 88 L 06/20/21 08:01 97.7 F 18 140/67 06/20/21 07:55 93 L - Plan Plan:: Case discussed in full. Agree with evaluation, assessment and plan. -Octavio Oliva Jr., DO
[2021-06-20] MEDS: Insulin Regular, Human 100 Units/ML 3 ML Vial SUBCUT SCH ×4 (07:35→21:06)
[2021-06-20] MEDS: Dexamethasone 4 MG Tab PO SCH (08:53)
[2021-06-20] MEDS: Trospium 20 MG Tab PO SCH ×2 (08:53→21:05)
[2021-06-20] MEDS: Finasteride 5 MG Tab PO SCH (08:53)
[2021-06-20] MEDS: Zinc Sulfate 220 MG Cap PO SCH (08:53)
[2021-06-20] MEDS: Ascorbic Acid 500 MG Tab PO SCH (08:54)
[2021-06-20] MEDS: Piperacillin/Tazobactam 4.5 GM in Sodium Chloride 0.9% 100 ML IV SCH ×3 (08:56→23:50)
--- NOTE | 2021-06-20 09:11 | CR ---
Chest: Frontal view of the chest was obtained. Comparison: Prior chest x-ray of 06/16/21. Patchy areas of increased density are seen on both sides of the chest which remain stable from prior chest x-ray. These findings are variable with continuing COVID pneumonia. No new areas of abnormal parenchymal density are seen. Heart size and mediastinum are normal. Bony structures show nothing acute. Impression: 1. Stable increased density within both sides of the chest compatible with stable COVID pneumonia. 2. Nothing acute is appreciated. Diagnostic code #3
[2021-06-20] MEDS: Albuterol 6.7 GM Inhaler INH PRN (10:07)
[2021-06-20] MEDS: oxyCODONE 5 MG Tab PO PRN (11:00)
[2021-06-20] MEDS: Melatonin 3 MG Tab PO SCH (21:05)
[2021-06-20] MEDS: Tamsulosin 0.4 MG Cap.ER PO SCH (21:05)
[2021-06-20] MEDS: Insulin Glargine,Hum.Rec.Anlog 100 UNIT/ML 3 ML Pen SUBCUT SCH (21:07)
[2021-06-21] MEDS: oxyCODONE 5 MG Tab PO PRN (03:05)
[2021-06-21] MEDS: LEVODOPA PO SCH ×6 (05:32→22:25)
[2021-06-21] MEDS: Levothyroxine 50 MCG Tab PO SCH (05:32)
[2021-06-21] MEDS: Acetaminophen 325 MG Tab PO SCH ×3 (05:32→21:09)
[2021-06-21] MEDS: CARBIDOPA PO SCH ×6 (05:32→22:25)
[2021-06-21] MEDS: Insulin Regular, Human 100 Units/ML 3 ML Vial SUBCUT SCH ×4 (07:28→21:00)
[2021-06-21] MEDS: Zinc Sulfate 220 MG Cap PO SCH (08:08)
[2021-06-21] MEDS: Ascorbic Acid 500 MG Tab PO SCH (08:08)
[2021-06-21] MEDS: Trospium 20 MG Tab PO SCH ×2 (08:08→21:08)
[2021-06-21] MEDS: Finasteride 5 MG Tab PO SCH (08:08)
[2021-06-21] MEDS: Dexamethasone 4 MG Tab PO SCH (08:09)
[2021-06-21] MEDS: Piperacillin/Tazobactam 4.5 GM in Sodium Chloride 0.9% 100 ML IV SCH ×2 (08:10→15:00)
--- NOTE | 2021-06-21 09:29 | PCM.PN ---
- General Info Date of Service: 06/21/21 Admission Dx/Problem (Free Text): Admission Diagnosis/Problem Admission Diagnosis/Problem acute respiratory failure due to COVID-19 pneumonia. Subjective Update: No acute events overnight. No new nursing concerns. No new specific patient concerns. Condition remains rather status quo. No evidence of active bleeding as he is on heparin infusion. - Patient Data Vitals - Most Recent: Last Vital Signs Temp 97.5 F 06/21/21 08:15 Pulse 64 06/21/21 08:15 Resp 16 06/21/21 08:15 BP 106/61 06/21/21 08:15 Pulse Ox 94 L 06/21/21 08:15 Weight - Most Recent: 228 lb 4.8 oz I&O - Last 24 Hours: Intake & Output 06/20/21 06/21/21 06/21/21 22:59 06:59 14:59 Intake Total 1500 804 Output Total 500 200 Balance 1000 604 Lab Results Last 24 Hours: Laboratory Results - last 24 hr 06/20/21 06/20/21 06/20/21 Range/Units 10:15 11:59 17:39 WBC (4.23-9.07) K/mm3 RBC (4.63-6.08) M/mm3 Hgb (13.7-17.5) gm/dl Hct (40.1-51.0) % MCV (79.0-92.2) fl MCH (25.7-32.2) pg MCHC (32.2-35.5) g/dl RDW Std Deviation (35.1-43.9) fL Plt Count (163-337) K/mm3 MPV (9.4-12.3) fl Neut % (Auto) (34.0-67.9) % Lymph % (Auto) (21.8-53.1) % [place] % (Auto) (5.3-12.2) % Eos % (Auto) (0.8-7.0) Baso % (Auto) (0.1-1.2) % Neut # (Auto) (1.78-5.38) K/mm3 Lymph # (Auto) (1.32-3.57) K/mm3 [place] # (Auto) (0.30-0.82) K/mm3 Eos # (Auto) (0.04-0.54) K/mm3 Baso # (Auto) (0.01-0.08) K/mm3 APTT 88.0 H D (21.7-31.4) SECONDS Sodium (136-145) mEq/L Potassium (3.5-5.1) mEq/L Chloride (98-107) mEq/L Carbon Dioxide (21-32) mEq/L Anion Gap (5-15) BUN (7-18) mg/dL Creatinine (0.7-1.3) mg/dL Est Cr Clr Drug Dosing mL/min Estimated GFR (MDRD) (>60) mL/min BUN/Creatinine Ratio (14-18) Glucose (70-99) mg/dL POC Glucose 124 H 288 H (70-99) mg/dL Calcium (8.5-10.1) mg/dL C-Reactive Protein (<1.0) mg/dL 06/20/21 06/20/21 06/21/21 Range/Units 19:06 21:02 04:19 WBC (4.23-9.07) K/mm3 RBC (4.63-6.08) M/mm3 Hgb (13.7-17.5) gm/dl Hct (40.1-51.0) % MCV (79.0-92.2) fl MCH (25.7-32.2) pg MCHC (32.2-35.5) g/dl RDW Std Deviation (35.1-43.9) fL Plt Count (163-337) K/mm3 MPV (9.4-12.3) fl Neut % (Auto) (34.0-67.9) % Lymph % (Auto) (21.8-53.1) % [place] % (Auto) (5.3-12.2) % Eos % (Auto) (0.8-7.0) Baso % (Auto) (0.1-1.2) % Neut # (Auto) (1.78-5.38) K/mm3 Lymph # (Auto) (1.32-3.57) K/mm3 [place] # (Auto) (0.30-0.82) K/mm3 Eos # (Auto) (0.04-0.54) K/mm3 Baso # (Auto) (0.01-0.08) K/mm3 APTT 95.5 H (21.7-31.4) SECONDS Sodium (136-145) mEq/L Potassium (3.5-5.1) mEq/L Chloride (98-107) mEq/L Carbon Dioxide (21-32) mEq/L Anion Gap (5-15) BUN (7-18) mg/dL Creatinine (0.7-1.3) mg/dL Est Cr Clr Drug Dosing mL/min Estimated GFR (MDRD) (>60) mL/min BUN/Creatinine Ratio (14-18) Glucose (70-99) mg/dL POC Glucose 269 H 115 H (70-99) mg/dL Calcium (8.5-10.1) mg/dL C-Reactive Protein (<1.0) mg/dL 06/21/21 06/21/21 06/21/21 Range/Units 04:20 04:20 04:20 WBC 12.61 H (4.23-9.07) K/mm3 RBC 4.54 L (4.63-6.08) M/mm3 Hgb 13.9 (13.7-17.5) gm/dl Hct 43.2 (40.1-51.0) % MCV 95.2 H (79.0-92.2) fl MCH 30.6 (25.7-32.2) pg MCHC 32.2 (32.2-35.5) g/dl RDW Std Deviation 47.3 H (35.1-43.9) fL Plt Count 199 (163-337) K/mm3 MPV 9.9 (9.4-12.3) fl Neut % (Auto) 88.8 H (34.0-67.9) % Lymph % (Auto) 5.5 L (21.8-53.1) % [place] % (Auto) 4.4 L (5.3-12.2) % Eos % (Auto) 0.4 L (0.8-7.0) Baso % (Auto) 0.1 (0.1-1.2) % Neut # (Auto) 11.20 H (1.78-5.38) K/mm3 Lymph # (Auto) 0.69 L (1.32-3.57) K/mm3 [place] # (Auto) 0.56 (0.30-0.82) K/mm3 Eos # (Auto) 0.05 (0.04-0.54) K/mm3 Baso # (Auto) 0.01 (0.01-0.08) K/mm3 APTT 71.8 H D (21.7-31.4) SECONDS Sodium 140 (136-145) mEq/L Potassium 4.7 (3.5-5.1) mEq/L Chloride 101 (98-107) mEq/L Carbon Dioxide 29 (21-32) mEq/L Anion Gap 14.7 (5-15) BUN 25 H (7-18) mg/dL Creatinine 1.1 (0.7-1.3) mg/dL Est Cr Clr Drug Dosing 70.58 mL/min Estimated GFR (MDRD) > 60 (>60) mL/min BUN/Creatinine Ratio 22.7 H (14-18) Glucose 118 H (70-99) mg/dL POC Glucose (70-99) mg/dL Calcium 8.6 (8.5-10.1) mg/dL C-Reactive Protein 2.1 H* (<1.0) mg/dL Med Orders - Current: Current Medications Acetaminophen (Acetaminophen 325 Mg Tab) 650 mg PO Q8H [facility] Last Admin: 06/21/21 05:32 Dose: 650 mg Documented by: Al Hydroxide/Mg Hydroxide (Aluminum Hydroxide/Magnesium Hydroxide/Simethicone Susp 30 Ml Cup) 30 ml PO Q4H PRN PRN Reason: Heartburn Last Admin: 06/14/21 21:37 Dose: 30 ml Documented by: Albuterol (Albuterol 6.7 Gm Inhaler) 0 gm INH QID PRN PRN Reason: SOB/Wheezing Last Admin: 06/20/21 10:07 Dose: 2 each Documented by: Albuterol/Ipratropium (Albuterol/Ipratropium 3.0-0.5 Mg/3 Ml Neb Soln) 3 ml NEB Q4H PRN PRN Reason: Shortness Of Breath/wheezing Last Admin: 06/19/21 08:26 Dose: 3 ml Documented by: Alogliptin Benzoate (Alogliptin 12.5 Mg Tab) 12.5 mg PO BIDMEALS [facility] Last Admin: 06/21/21 06:46 Dose: 12.5 mg Documented by: Ascorbic Acid (Ascorbic Acid 500 Mg Tab) 500 mg PO DAILY [facility] Last Admin: 06/21/21 08:08 Dose: 500 mg Documented by: Baricitinib (Baricitinib 2 Mg Tab) 4 mg PO DAILY [facility] Stop: 06/26/21 09:01 Last Admin: 06/21/21 08:08 Dose: 4 mg Documented by: Dexamethasone (Dexamethasone 4 Mg Tab) 6 mg PO DAILY [facility] Last Admin: 06/21/21 08:09 Dose: 6 mg Documented by: Docusate Sodium (Docusate Sodium 100 Mg Cap) 100 mg PO BID PRN PRN Reason: Constipation Last Admin: 06/14/21 12:07 Dose: 100 mg Documented by: Finasteride (Finasteride 5 Mg Tab) 5 mg PO DAILY [facility] Last Admin: 06/21/21 08:08 Dose: 5 mg Documented by: Guaifenesin/Phenylephrine HCl (Guaifenesin/Dextromethorphan 100-10 Mg/5 Ml Soln 5 Ml Cup) 10 ml PO Q6H PRN PRN Reason: Cough Piperacillin Sod/Tazobactam (Sod 4.5 gm/ Sodium Chloride) 100 mls @ 25 mls/hr IV Q8H [facility] Stop: 06/21/21 16:01 Last Admin: 06/21/21 08:10 Dose: 25 mls/hr Documented by: Heparin Sodium/Dextrose (Heparin 25,000 Units In D5w 500 Ml) 25,000 units in 500 mls @ 26 mls/hr IV TITRATE [facility]; Protocol Last Titration: 06/21/21 05:41 Dose: 29.6 ml/hr, 29.6 mls/hr Documented by: Insulin Glargine (Insulin Glargine,Hum.Rec.Anlog 100 Unit/Ml 3 Ml Pen) 28 unit SUBCUT BEDTIME [facility] Last Admin: 06/20/21 21:07 Dose: 28 units Documented by: Insulin Human Regular (Insulin Regular, Human 100 Units/Ml 3 Ml Vial) 0 unit SUBCUT QIDACANDBED [facility]; Protocol Last Admin: 06/21/21 07:28 Dose: Not Given Documented by: Levothyroxine Sodium (Levothyroxine 50 Mcg Tab) 50 mcg PO ACBREAKFAST [facility] Last Admin: 06/21/21 05:32 Dose: 50 mcg Documented by: Melatonin (Melatonin 3 Mg Tab) 6 mg PO BEDTIME [facility] Last Admin: 06/20/21 21:05 Dose: 6 mg Documented by: Carbidopa/Levodopa 25-250 Tab Own Med 1 tab PO 0600,1100,1500,1900,2300 [facility] Last Admin: 06/21/21 05:32 Dose: 1 tab Documented by: Ondansetron HCl (Ondansetron 4 Mg Tab.Dis) 4 mg PO Q4H PRN PRN Reason: nausea, able to take PO Oxycodone HCl (Oxycodone 5 Mg Tab) 5 mg PO Q4H PRN PRN Reason: Pain (moderate 4-6) Last Admin: 06/21/21 03:05 Dose: 5 mg Documented by: Sodium Chloride (Sodium Chloride 0.9% 10 Ml Syringe) 10 ml FLUSH ASDIRECTED PRN PRN Reason: Keep Vein Open Last Admin: 06/10/21 00:24 Dose: 10 ml Documented by: Tamsulosin HCl (Tamsulosin 0.4 Mg Cap.Er) 0.4 mg PO BEDTIME [facility] Last Admin: 06/20/21 21:05 Dose: 0.4 mg Documented by: Temazepam (Temazepam 15 Mg Cap) 15 mg PO BEDTIME PRN PRN Reason: Sleep Last Admin: 06/13/21 21:18 Dose: 15 mg Documented by: Trolamine Salicylate (Trolamine Salicylate/Aloe Vera 10% Crm 85 Gm Tube) 1 gm TOP Q2H PRN PRN Reason: Pain (moderate 4-6) Last Admin: 06/19/21 00:55 Dose: 1 applic Documented by: Trospium (Trospium 20 Mg Tab) 20 mg PO BID [facility] Last Admin: 06/21/21 08:08 Dose: 20 mg Documented by: Zinc Sulfate (Zinc Sulfate 220 Mg Cap) 220 mg PO DAILY [facility] Last Admin: 06/21/21 08:08 Dose: 220 mg Documented by: Discontinued Medications Acetaminophen (Acetaminophen 325 Mg Tab) 975 mg PO NOW ONE Stop: 06/09/21 21:16 Last Admin: 06/09/21 21:41 Dose: 350 mg Documented by: Acetaminophen (Acetaminophen 650 Mg Supp) 650 mg RECTAL NOW ONE Stop: 06/09/21 21:52 Last Admin: 06/09/21 22:30 Dose: 650 mg Documented by: Acetaminophen (Acetaminophen 325 Mg Tab) 650 mg PO Q4H PRN PRN Reason: Pain (Mild 1-3)/fever Last Admin: 06/12/21 08:10 Dose: 650 mg Documented by: Acetaminophen (Acetaminophen 325 Mg Tab) 975 mg PO Q8HR [facility] Acetaminophen (Acetaminophen 325 Mg Tab) 650 mg PO Q8H [facility] Last Admin: 06/12/21 11:51 Dose: Not Given Documented by: Acetaminophen (Acetaminophen 325 Mg Tab) 650 mg PO Q8H [facility] Last Admin: 06/16/21 02:16 Dose: Not Given Documented by: Carbidopa/Levodopa (Carbidopa/Levodopa 25-100 Mg Tab) 1 tab PO QID [facility] Last Admin: 06/10/21 16:54 Dose: 1 tab Documented by: Dexamethasone (Dexamethasone 4 Mg/Ml 5 Ml Mdv) 6 mg IV ONETIME ONE Stop: 06/10/21 00:53 Last Admin: 06/10/21 01:31 Dose: 6 mg Documented by: Dexamethasone (Dexamethasone 4 Mg Tab) 6 mg PO DAILY [facility] Stop: 06/18/21 09:01 Last Admin: 06/12/21 08:55 Dose: 6 mg Documented by: Dexamethasone (Dexamethasone 4 Mg Tab) 6 mg PO BID [facility] Last Admin: 06/19/21 09:25 Dose: 6 mg Documented by: Enoxaparin Sodium (Enoxaparin 40 Mg/0.4 Ml Syringe) 40 mg SUBCUT DAILY [facility] Last Admin: 06/14/21 10:24 Dose: 40 mg Documented by: Enoxaparin Sodium (Enoxaparin 100 Mg/1 Ml Syringe) 100 mg SUBCUT Q12H [facility] Last Admin: 06/15/21 22:00 Dose: 100 mg Documented by: Glimepiride (Glimepiride 2 Mg Tab) 4 mg PO DAILY [facility] Last Admin: 06/10/21 09:51 Dose: 4 mg Documented by: Glimepiride (Glimepiride 2 Mg Tab) 2 mg PO WITHBREAKFAST [facility] Last Admin: 06/11/21 06:05 Dose: 2 mg Documented by: Sodium Chloride (Normal Saline) 1,000 mls @ 250 mls/hr IV ONETIME ONE Stop: 06/10/21 01:14 Last Infusion: 06/09/21 21:41 Dose: 250 mls/hr Documented by: Sodium Chloride (Normal Saline) Confirm Administered Dose 1,000 mls @ as directed .ROUTE .STK-MED ONE Stop: 06/09/21 21:19 Last Admin: 06/10/21 01:11 Dose: Not Given Documented by: Remdesivir 200 mg/ Sodium (Chloride) 250 mls @ 250 mls/hr IV ONETIME ONE Stop: 06/10/21 00:53 Last Admin: 06/10/21 01:47 Dose: 250 mls/hr Documented by: Remdesivir 100 mg/ Sodium (Chloride) 100 mls @ 100 mls/hr IV Q24H [facility] Stop: 06/13/21 21:59 Last Admin: 06/13/21 21:19 Dose: 100 mls/hr Documented by: Ceftriaxone Sodium 1 gm/ (Sodium Chloride) 100 mls @ 200 mls/hr IV Q24H [facility] Last Admin: 06/11/21 09:01 Dose: 200 mls/hr Documented by: Ceftriaxone Sodium 2 gm/ (Sodium Chloride) 100 mls @ 200 mls/hr IV Q24H [facility] Stop: 06/16/21 09:29 Last Admin: 06/15/21 09:19 Dose: 200 mls/hr Documented by: Azithromycin 500 mg/ Sodium (Chloride) 250 mls @ 250 mls/hr IV Q24H [facility] Stop: 06/14/21 08:59 Last Admin: 06/14/21 08:49 Dose: 250 mls/hr Documented by: Sodium Chloride (Normal Saline) 100 mls @ 75 mls/hr IV ASDIRECTED [facility] Stop: 06/13/21 13:00 Last Admin: 06/13/21 09:52 Dose: 75 mls/hr Documented by: Lactated Ringer's (Ringers, Lactated) 1,000 mls @ 150 mls/hr IV ASDIRECTED [facility] Last Admin: 06/16/21 06:45 Dose: 150 mls/hr Documented by: Lactated Ringer's (Ringers, Lactated) Confirm Administered Dose 1,000 mls @ as directed .ROUTE .STK-MED ONE Stop: 06/16/21 06:44 Last Admin: 06/16/21 08:07 Dose: Not Given Documented by: Piperacillin Sod/Tazobactam (Sod 4.5 gm/ Sodium Chloride) 100 mls @ 200 mls/hr IV ONETIME ONE Stop: 06/16/21 08:31 Last Admin: 06/16/21 09:13 Dose: 200 mls/hr Documented by: Lactated Ringer's (Ringers, Lactated) 1,000 mls @ 75 mls/hr IV ASDIRECTED [facility] Last Admin: 06/16/21 22:47 Dose: 75 mls/hr Documented by: Insulin Glargine (Insulin Glarg,Human.Rec.Analog 100 Unit/Ml) 24 unit SUBCUT BEDTIME [facility] Insulin Glargine (Insulin Glargine,Hum.Rec.Anlog 100 Unit/Ml 3 Ml Pen) 24 unit SUBCUT BEDTIME [facility] Last Admin: 06/10/21 21:05 Dose: 24 units Documented by: Insulin Glargine (Insulin Glargine,Hum.Rec.Anlog 100 Unit/Ml 3 Ml Pen) 28 unit SUBCUT BEDTIME [facility] Last Admin: 06/11/21 21:21 Dose: 28 units Documented by: Insulin Glargine (Insulin Glargine,Hum.Rec.Anlog 100 Unit/Ml 3 Ml Pen) 32 unit SUBCUT BEDTIME [facility] Last Admin: 06/19/21 21:29 Dose: 32 unit Documented by: Insulin Human Isoph/Insulin Regular (Insulin Nph/Insulin Regular,Human 70-30 100 Units/Ml 10 Ml Vial) 0 units SUBCUT BIDAC [facility]; Protocol Last Admin: 06/10/21 02:36 Dose: Not Given Documented by: Insulin Human Lispro (Insulin Lispro 100 Unit/Ml 3 Ml Kwikpen) 0 unit SUBCUT QIDACANDBED [facility]; Protocol Last Admin: 06/10/21 12:15 Dose: Not Given Documented by: Insulin Human Regular (Insulin Regular, Human 100 Units/Ml 3 Ml Vial) 0 unit SUBCUT TIDPC [facility]; Protocol Last Admin: 06/12/21 09:12 Dose: 6 unit Documented by: Iopamidol (Iopamidol 755 Mg/Ml 100 Ml Bottle) 100 ml IVPUSH ONETIME ONE Stop: 06/09/21 23:54 Last Admin: 06/10/21 00:24 Dose: 100 ml Documented by: Iopamidol (Iopamidol 755 Mg/Ml 100 Ml Bottle) 100 ml IVPUSH ONETIME ONE Stop: 06/13/21 08:56 Last Admin: 06/13/21 09:52 Dose: 100 ml Documented by: Magnesium Hydroxide (Magnesium Hydroxide 400 Mg/5 Ml Susp 30 Ml Cup) 30 ml PO ONETIME ONE Stop: 06/13/21 06:01 Last Admin: 06/13/21 06:18 Dose: 30 ml Documented by: Metformin HCl (Metformin 500 Mg Tab) 1,000 mg PO BIDMEALS [facility] Last Admin: 06/11/21 06:06 Dose: 1,000 mg Documented by: Morphine Sulfate (Morphine 2 Mg/Ml Syringe) 2 mg IVPUSH Q2H PRN PRN Reason: Pain (severe 7-10) Stop: 06/11/21 07:46 Non-Formulary Medication (Tresiba) 24 units SQ ONETIME ONE Stop: 06/10/21 03:46 Last Admin: 06/10/21 03:45 Dose: 24 units Documented by: Carbidopa/Levodopa 25-250 Tab Own Med 1 tab PO 0600,1100,1500,1900,2300 [facility] Last Admin: 06/11/21 05:29 Dose: 1 tab Documented by: Non-Formulary Medication (Sitagliptin Phos/Metformin Hcl [Janumet 50-1,000 Mg]) 1 tab PO BID [facility] Non-Formulary Medication (Non-Formulary Medication 1 Each) 1 each PO BID [facility] Pantoprazole Sodium (Pantoprazole 40 Mg Vial) 80 mg IVPUSH BOLUS ONE Stop: 06/16/21 07:05 Last Admin: 06/16/21 08:03 Dose: 80 mg Documented by: Sodium Chloride (Sodium Chloride 0.9% 10 Ml Syringe) 10 ml FLUSH ONETIME PRN PRN Reason: IV FLUSH Stop: 06/13/21 13:00 Trospium (Trospium 20 Mg Tab) 10 mg PO BID [facility] Last Admin: 06/10/21 21:03 Dose: 10 mg Documented by: - Exam Quality Assessment: Supplemental Oxygen Urinary Catheter Total Time: 1Days 9Hours General: Alert, Cooperative, No Acute Distress Lungs: Normal Respiratory Effort, Decreased Breath Sounds Cardiovascular: Regular Rate GI/Abdominal Exam: Normal Bowel Sounds, Soft, Non-Tender Extremities: Normal Inspection Skin: Warm, Dry - Patient Data Lab Results Last 24 hrs: Laboratory Results - last 24 hr 06/20/21 06/20/21 06/20/21 Range/Units 10:15 11:59 17:39 WBC (4.23-9.07) K/mm3 RBC (4.63-6.08) M/mm3 Hgb (13.7-17.5) gm/dl Hct (40.1-51.0) % MCV (79.0-92.2) fl MCH (25.7-32.2) pg MCHC (32.2-35.5) g/dl RDW Std Deviation (35.1-43.9) fL Plt Count (163-337) K/mm3 MPV (9.4-12.3) fl Neut % (Auto) (34.0-67.9) % Lymph % (Auto) (21.8-53.1) % [place] % (Auto) (5.3-12.2) % Eos % (Auto) (0.8-7.0) Baso % (Auto) (0.1-1.2) % Neut # (Auto) (1.78-5.38) K/mm3 Lymph # (Auto) (1.32-3.57) K/mm3 [place] # (Auto) (0.30-0.82) K/mm3 Eos # (Auto) (0.04-0.54) K/mm3 Baso # (Auto) (0.01-0.08) K/mm3 APTT 88.0 H D (21.7-31.4) SECONDS Sodium (136-145) mEq/L Potassium (3.5-5.1) mEq/L Chloride (98-107) mEq/L Carbon Dioxide (21-32) mEq/L Anion Gap (5-15) BUN (7-18) mg/dL Creatinine (0.7-1.3) mg/dL Est Cr Clr Drug Dosing mL/min Estimated GFR (MDRD) (>60) mL/min BUN/Creatinine Ratio (14-18) Glucose (70-99) mg/dL POC Glucose 124 H 288 H (70-99) mg/dL Calcium (8.5-10.1) mg/dL C-Reactive Protein (<1.0) mg/dL 06/20/21 06/20/21 06/21/21 Range/Units 19:06 21:02 04:19 WBC (4.23-9.07) K/mm3 RBC (4.63-6.08) M/mm3 Hgb (13.7-17.5) gm/dl Hct (40.1-51.0) % MCV (79.0-92.2) fl MCH (25.7-32.2) pg MCHC (32.2-35.5) g/dl RDW Std Deviation (35.1-43.9) fL Plt Count (163-337) K/mm3 MPV (9.4-12.3) fl Neut % (Auto) (34.0-67.9) % Lymph % (Auto) (21.8-53.1) % [place] % (Auto) (5.3-12.2) % Eos % (Auto) (0.8-7.0) Baso % (Auto) (0.1-1.2) % Neut # (Auto) (1.78-5.38) K/mm3 Lymph # (Auto) (1.32-3.57) K/mm3 [place] # (Auto) (0.30-0.82) K/mm3 Eos # (Auto) (0.04-0.54) K/mm3 Baso # (Auto) (0.01-0.08) K/mm3 APTT 95.5 H (21.7-31.4) SECONDS Sodium (136-145) mEq/L Potassium (3.5-5.1) mEq/L Chloride (98-107) mEq/L Carbon Dioxide (21-32) mEq/L Anion Gap (5-15) BUN (7-18) mg/dL Creatinine (0.7-1.3) mg/dL Est Cr Clr Drug Dosing mL/min Estimated GFR (MDRD) (>60) mL/min BUN/Creatinine Ratio (14-18) Glucose (70-99) mg/dL POC Glucose 269 H 115 H (70-99) mg/dL Calcium (8.5-10.1) mg/dL C-Reactive Protein (<1.0) mg/dL 06/21/21 06/21/21 06/21/21 Range/Units 04:20 04:20 04:20 WBC 12.61 H (4.23-9.07) K/mm3 RBC 4.54 L (4.63-6.08) M/mm3 Hgb 13.9 (13.7-17.5) gm/dl Hct 43.2 (40.1-51.0) % MCV 95.2 H (79.0-92.2) fl MCH 30.6 (25.7-32.2) pg MCHC 32.2 (32.2-35.5) g/dl RDW Std Deviation 47.3 H (35.1-43.9) fL Plt Count 199 (163-337) K/mm3 MPV 9.9 (9.4-12.3) fl Neut % (Auto) 88.8 H (34.0-67.9) % Lymph % (Auto) 5.5 L (21.8-53.1) % [place] % (Auto) 4.4 L (5.3-12.2) % Eos % (Auto) 0.4 L (0.8-7.0) Baso % (Auto) 0.1 (0.1-1.2) % Neut # (Auto) 11.20 H (1.78-5.38) K/mm3 Lymph # (Auto) 0.69 L (1.32-3.57) K/mm3 [place] # (Auto) 0.56 (0.30-0.82) K/mm3 Eos # (Auto) 0.05 (0.04-0.54) K/mm3 Baso # (Auto) 0.01 (0.01-0.08) K/mm3 APTT 71.8 H D (21.7-31.4) SECONDS Sodium 140 (136-145) mEq/L Potassium 4.7 (3.5-5.1) mEq/L Chloride 101 (98-107) mEq/L Carbon Dioxide 29 (21-32) mEq/L Anion Gap 14.7 (5-15) BUN 25 H (7-18) mg/dL Creatinine 1.1 (0.7-1.3) mg/dL Est Cr Clr Drug Dosing 70.58 mL/min Estimated GFR (MDRD) > 60 (>60) mL/min BUN/Creatinine Ratio 22.7 H (14-18) Glucose 118 H (70-99) mg/dL POC Glucose (70-99) mg/dL Calcium 8.6 (8.5-10.1) mg/dL C-Reactive Protein 2.1 H* (<1.0) mg/dL Result Diagrams: 06/21/21 04:20 06/21/21 04:20 Sepsis Event Note - Evaluation Sepsis Screening Result: No Definite Risk - Focused Exam Vital Signs: Vital Signs Temp Pulse Resp BP Pulse Ox Pulse Ox 06/21/21 08:15 97.5 F 64 16 106/61 94 L 06/21/21 03:07 97.9 F 71 20 102/74 88 L 06/20/21 23:11 96 - Problem List Review Problem List Initiated/Reviewed/Updated: Yes - My Orders Last 24 Hours: My Active Orders 06/21/21 11:00 aPTT [PTT,PARTIAL THROMBOPLSTIN TIME] [COAG] Routine - Plan Plan:: For complete details over the patient's long course please see prior notes. Assessment: Acute hypoxic respiratory failure secondary to Covid 19 pneumonitis Acute COVID-19 Diabetes mellitus. 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 Plan: Remains status quo. Continue Covid protocol and conventional therapies. RT consult with supplemental oxygen with titration as necessary. Heparin infusion for hypercoagulable prophylaxis, meanwhile being mindful of any new GI bleeding. Glucose control with hyperglycemia protocol with expected higher sugars due to steroids. CODE STATUS: Full code. DVT prophylaxis; systemic anticoagulation with heparin infusion.
[2021-06-21] MEDS: Heparin Sodium/D5W 25,000 UNITS/500 ML BAG IV SCH (10:20)
[2021-06-21] MEDS: Insulin Glargine,Hum.Rec.Anlog 100 UNIT/ML 3 ML Pen SUBCUT SCH (20:57)
[2021-06-21] MEDS: Melatonin 3 MG Tab PO SCH (21:07)
[2021-06-21] MEDS: Tamsulosin 0.4 MG Cap.ER PO SCH (21:08)
[2021-06-21] MEDS: Temazepam 15 MG Cap PO PRN (22:24)
[2021-06-22] MEDS: Heparin Sodium/D5W 25,000 UNITS/500 ML BAG IV SCH ×2 (02:56→20:10)
[2021-06-22] MEDS: Levothyroxine 50 MCG Tab PO SCH (06:06)
[2021-06-22] MEDS: Acetaminophen 325 MG Tab PO SCH ×3 (06:13→21:24)
[2021-06-22] MEDS: LEVODOPA PO SCH ×5 (06:14→23:24)
[2021-06-22] MEDS: CARBIDOPA PO SCH ×5 (06:14→23:24)
[2021-06-22] MEDS: Insulin Regular, Human 100 Units/ML 3 ML Vial SUBCUT SCH ×4 (07:14→21:22)
[2021-06-22] MEDS: Finasteride 5 MG Tab PO SCH (08:10)
[2021-06-22] MEDS: Ascorbic Acid 500 MG Tab PO SCH (08:10)
[2021-06-22] MEDS: Trospium 20 MG Tab PO SCH ×2 (08:10→21:24)
[2021-06-22] MEDS: Dexamethasone 4 MG Tab PO SCH (08:11)
[2021-06-22] MEDS: Zinc Sulfate 220 MG Cap PO SCH (08:11)
[2021-06-22] MEDS: Albuterol/Ipratropium 3.0-0.5 MG/3 ML Neb Soln NEB PRN (08:33)
--- NOTE | 2021-06-22 08:42 | CR ---
Chest: Portable view of the chest was obtained. Comparison: Prior chest x-ray of 06/20/21. Diffuse increased density is seen within the right chest. Lesser density within the left chest is seen. Heart size is normal. Upper mediastinum is stable. No acute change within the osseous structures is seen. Impression: 1. Worsening density within both sides of the chest, greater on the right side. Findings are compatible with worsening COVID pneumonia. Diagnostic code #3
[2021-06-22] MEDS: Trolamine Salicylate/Aloe Vera 10% Crm 85 GM Tube TOP PRN (11:23)
--- NOTE | 2021-06-22 12:19 | PCM.PN ---
<Danette Ng M - Last Filed: 06/22/21 12:33> - General Info Date of Service: 06/22/21 Admission Dx/Problem (Free Text): Admission Diagnosis/Problem Admission Diagnosis/Problem acute respiratory failure due to COVID-19 pneumonia. Subjective Update: Patient was seen on rounds today. Offers no complaints. Denies any shortness of breath however continues on 5 L of oxygen per nasal cannula. States he does have an occasionally productive cough however he swallows the sputum. States his appetite is good. Functional Status: Reports: Pain Controlled, Tolerating Diet, Ambulating (With therapies), Urinating, Incentive Spirometry - Review of Systems General: Reports: No Symptoms HEENT: Reports: No Symptoms Pulmonary: Reports: Cough, Sputum. Denies: Shortness of Breath Cardiovascular: Reports: No Symptoms Gastrointestinal: Reports: No Symptoms Genitourinary: Reports: No Symptoms Musculoskeletal: Reports: No Symptoms Skin: Reports: No Symptoms Neurological: Reports: No Symptoms Psychiatric: Reports: No Symptoms - Patient Data Vitals - Most Recent: Last Vital Signs Temp 98.2 F 06/22/21 11:14 Pulse 71 06/22/21 11:14 Resp 17 06/22/21 11:14 BP 124/58 L 06/22/21 11:14 Pulse Ox 92 L 06/22/21 11:14 Weight - Most Recent: 233 lb 3.2 oz I&O - Last 24 Hours: Intake & Output 06/21/21 06/22/21 06/22/21 22:59 06:59 14:59 Intake Total 1828 600 100 Output Total 325 Balance 1503 600 100 Lab Results Last 24 Hours: Laboratory Results - last 24 hr 06/21/21 06/21/21 06/21/21 Range/Units 17:22 17:26 20:56 WBC (4.23-9.07) K/mm3 RBC (4.63-6.08) M/mm3 Hgb (13.7-17.5) gm/dl Hct (40.1-51.0) % MCV (79.0-92.2) fl MCH (25.7-32.2) pg MCHC (32.2-35.5) g/dl RDW Std Deviation (35.1-43.9) fL Plt Count (163-337) K/mm3 MPV (9.4-12.3) fl Neut % (Auto) (34.0-67.9) % Lymph % (Auto) (21.8-53.1) % [place] % (Auto) (5.3-12.2) % Eos % (Auto) (0.8-7.0) Baso % (Auto) (0.1-1.2) % Neut # (Auto) (1.78-5.38) K/mm3 Lymph # (Auto) (1.32-3.57) K/mm3 [place] # (Auto) (0.30-0.82) K/mm3 Eos # (Auto) (0.04-0.54) K/mm3 Baso # (Auto) (0.01-0.08) K/mm3 APTT 61.1 H (21.7-31.4) SECONDS D-Dimer, Quantitative Sodium (136-145) mEq/L Potassium (3.5-5.1) mEq/L Chloride (98-107) mEq/L Carbon Dioxide (21-32) mEq/L Anion Gap (5-15) BUN (7-18) mg/dL Creatinine (0.7-1.3) mg/dL Est Cr Clr Drug Dosing mL/min Estimated GFR (MDRD) (>60) mL/min BUN/Creatinine Ratio (14-18) Glucose (70-99) mg/dL POC Glucose 327 H 280 H (70-99) mg/dL Calcium (8.5-10.1) mg/dL Ferritin (26-388) ng/ml C-Reactive Protein (<1.0) mg/dL 06/22/21 06/22/21 06/22/21 Range/Units 06:04 06:07 06:07 WBC (4.23-9.07) K/mm3 RBC (4.63-6.08) M/mm3 Hgb (13.7-17.5) gm/dl Hct (40.1-51.0) % MCV (79.0-92.2) fl MCH (25.7-32.2) pg MCHC (32.2-35.5) g/dl RDW Std Deviation (35.1-43.9) fL Plt Count (163-337) K/mm3 MPV (9.4-12.3) fl Neut % (Auto) (34.0-67.9) % Lymph % (Auto) (21.8-53.1) % [place] % (Auto) (5.3-12.2) % Eos % (Auto) (0.8-7.0) Baso % (Auto) (0.1-1.2) % Neut # (Auto) (1.78-5.38) K/mm3 Lymph # (Auto) (1.32-3.57) K/mm3 [place] # (Auto) (0.30-0.82) K/mm3 Eos # (Auto) (0.04-0.54) K/mm3 Baso # (Auto) (0.01-0.08) K/mm3 APTT 56.2 H (21.7-31.4) SECONDS D-Dimer, Quantitative Cancelled Sodium 140 (136-145) mEq/L Potassium 4.3 (3.5-5.1) mEq/L Chloride 102 (98-107) mEq/L Carbon Dioxide 34 H (21-32) mEq/L Anion Gap 8.3 (5-15) BUN 24 H (7-18) mg/dL Creatinine 0.9 (0.7-1.3) mg/dL Est Cr Clr Drug Dosing 86.26 mL/min Estimated GFR (MDRD) > 60 (>60) mL/min BUN/Creatinine Ratio 26.7 H (14-18) Glucose 112 H (70-99) mg/dL POC Glucose 103 H (70-99) mg/dL Calcium 8.7 (8.5-10.1) mg/dL Ferritin (26-388) ng/ml C-Reactive Protein 1.4 H* (<1.0) mg/dL 06/22/21 06/22/21 06/22/21 Range/Units 06:07 06:07 06:07 WBC 10.39 H (4.23-9.07) K/mm3 RBC 4.34 L (4.63-6.08) M/mm3 Hgb 13.1 L (13.7-17.5) gm/dl Hct 41.6 (40.1-51.0) % MCV 95.9 H (79.0-92.2) fl MCH 30.2 (25.7-32.2) pg MCHC 31.5 L (32.2-35.5) g/dl RDW Std Deviation 47.6 H (35.1-43.9) fL Plt Count 199 (163-337) K/mm3 MPV 10.6 (9.4-12.3) fl Neut % (Auto) 82.6 H (34.0-67.9) % Lymph % (Auto) 9.6 L (21.8-53.1) % [place] % (Auto) 6.0 (5.3-12.2) % Eos % (Auto) 0.6 L (0.8-7.0) Baso % (Auto) 0.1 (0.1-1.2) % Neut # (Auto) 8.59 H (1.78-5.38) K/mm3 Lymph # (Auto) 1.00 L (1.32-3.57) K/mm3 [place] # (Auto) 0.62 (0.30-0.82) K/mm3 Eos # (Auto) 0.06 (0.04-0.54) K/mm3 Baso # (Auto) 0.01 (0.01-0.08) K/mm3 APTT (21.7-31.4) SECONDS D-Dimer, Quantitative 5.22 H Sodium (136-145) mEq/L Potassium (3.5-5.1) mEq/L Chloride (98-107) mEq/L Carbon Dioxide (21-32) mEq/L Anion Gap (5-15) BUN (7-18) mg/dL Creatinine (0.7-1.3) mg/dL Est Cr Clr Drug Dosing mL/min Estimated GFR (MDRD) (>60) mL/min BUN/Creatinine Ratio (14-18) Glucose (70-99) mg/dL POC Glucose (70-99) mg/dL Calcium (8.5-10.1) mg/dL Ferritin 1931 H (26-388) ng/ml C-Reactive Protein (<1.0) mg/dL 06/22/21 Range/Units 11:11 WBC (4.23-9.07) K/mm3 RBC (4.63-6.08) M/mm3 Hgb (13.7-17.5) gm/dl Hct (40.1-51.0) % MCV (79.0-92.2) fl MCH (25.7-32.2) pg MCHC (32.2-35.5) g/dl RDW Std Deviation (35.1-43.9) fL Plt Count (163-337) K/mm3 MPV (9.4-12.3) fl Neut % (Auto) (34.0-67.9) % Lymph % (Auto) (21.8-53.1) % [place] % (Auto) (5.3-12.2) % Eos % (Auto) (0.8-7.0) Baso % (Auto) (0.1-1.2) % Neut # (Auto) (1.78-5.38) K/mm3 Lymph # (Auto) (1.32-3.57) K/mm3 [place] # (Auto) (0.30-0.82) K/mm3 Eos # (Auto) (0.04-0.54) K/mm3 Baso # (Auto) (0.01-0.08) K/mm3 APTT (21.7-31.4) SECONDS D-Dimer, Quantitative Sodium (136-145) mEq/L Potassium (3.5-5.1) mEq/L Chloride (98-107) mEq/L Carbon Dioxide (21-32) mEq/L Anion Gap (5-15) BUN (7-18) mg/dL Creatinine (0.7-1.3) mg/dL Est Cr Clr Drug Dosing mL/min Estimated GFR (MDRD) (>60) mL/min BUN/Creatinine Ratio (14-18) Glucose (70-99) mg/dL POC Glucose 212 H (70-99) mg/dL Calcium (8.5-10.1) mg/dL Ferritin (26-388) ng/ml C-Reactive Protein (<1.0) mg/dL Med Orders - Current: Current Medications Acetaminophen (Acetaminophen 325 Mg Tab) 650 mg PO Q8H [facility] Last Admin: 06/22/21 06:13 Dose: 650 mg Documented by: Al Hydroxide/Mg Hydroxide (Aluminum Hydroxide/Magnesium Hydroxide/Simethicone Susp 30 Ml Cup) 30 ml PO Q4H PRN PRN Reason: Heartburn Last Admin: 06/14/21 21:37 Dose: 30 ml Documented by: Albuterol (Albuterol 6.7 Gm Inhaler) 0 gm INH QID PRN PRN Reason: SOB/Wheezing Last Admin: 06/20/21 10:07 Dose: 2 each Documented by: Albuterol/Ipratropium (Albuterol/Ipratropium 3.0-0.5 Mg/3 Ml Neb Soln) 3 ml NEB Q4H PRN PRN Reason: Shortness Of Breath/wheezing Last Admin: 06/22/21 08:33 Dose: 3 ml Documented by: Alogliptin Benzoate (Alogliptin 12.5 Mg Tab) 12.5 mg PO BIDMEALS [facility] Last Admin: 06/22/21 08:10 Dose: 12.5 mg Documented by: Ascorbic Acid (Ascorbic Acid 500 Mg Tab) 500 mg PO DAILY [facility] Last Admin: 06/22/21 08:10 Dose: 500 mg Documented by: Baricitinib (Baricitinib 2 Mg Tab) 4 mg PO DAILY [facility] Stop: 06/26/21 09:01 Last Admin: 06/22/21 08:10 Dose: 4 mg Documented by: Dexamethasone (Dexamethasone 4 Mg Tab) 6 mg PO DAILY [facility] Last Admin: 06/22/21 08:11 Dose: 6 mg Documented by: Docusate Sodium (Docusate Sodium 100 Mg Cap) 100 mg PO BID PRN PRN Reason: Constipation Last Admin: 06/14/21 12:07 Dose: 100 mg Documented by: Finasteride (Finasteride 5 Mg Tab) 5 mg PO DAILY [facility] Last Admin: 06/22/21 08:10 Dose: 5 mg Documented by: Guaifenesin/Phenylephrine HCl (Guaifenesin/Dextromethorphan 100-10 Mg/5 Ml Soln 5 Ml Cup) 10 ml PO Q6H PRN PRN Reason: Cough Heparin Sodium/Dextrose (Heparin 25,000 Units In D5w 500 Ml) 25,000 units in 500 mls @ 26 mls/hr IV TITRATE [facility]; Protocol Last Admin: 06/22/21 02:56 Dose: 29.6 ml/hr, 29.6 mls/hr Documented by: Insulin Glargine (Insulin Glargine,Hum.Rec.Anlog 100 Unit/Ml 3 Ml Pen) 28 unit SUBCUT BEDTIME [facility] Last Admin: 06/21/21 20:57 Dose: 28 units Documented by: Insulin Human Regular (Insulin Regular, Human 100 Units/Ml 3 Ml Vial) 0 unit SUBCUT QIDACANDBED [facility]; Protocol Last Admin: 06/22/21 11:23 Dose: 6 unit Documented by: Levothyroxine Sodium (Levothyroxine 50 Mcg Tab) 50 mcg PO ACBREAKFAST [facility] Last Admin: 06/22/21 06:06 Dose: 50 mcg Documented by: Melatonin (Melatonin 3 Mg Tab) 6 mg PO BEDTIME [facility] Last Admin: 06/21/21 21:07 Dose: 6 mg Documented by: Carbidopa/Levodopa 25-250 Tab Own Med 1 tab PO 0600,1100,1500,1900,2300 [facility] Last Admin: 06/22/21 11:23 Dose: 1 tab Documented by: Ondansetron HCl (Ondansetron 4 Mg Tab.Dis) 4 mg PO Q4H PRN PRN Reason: nausea, able to take PO Oxycodone HCl (Oxycodone 5 Mg Tab) 5 mg PO Q4H PRN PRN Reason: Pain (moderate 4-6) Last Admin: 06/21/21 03:05 Dose: 5 mg Documented by: Sodium Chloride (Sodium Chloride 0.9% 10 Ml Syringe) 10 ml FLUSH ASDIRECTED PRN PRN Reason: Keep Vein Open Last Admin: 06/10/21 00:24 Dose: 10 ml Documented by: Tamsulosin HCl (Tamsulosin 0.4 Mg Cap.Er) 0.4 mg PO BEDTIME [facility] Last Admin: 06/21/21 21:08 Dose: 0.4 mg Documented by: Temazepam (Temazepam 15 Mg Cap) 15 mg PO BEDTIME PRN PRN Reason: Sleep Last Admin: 06/21/21 22:24 Dose: 15 mg Documented by: Trolamine Salicylate (Trolamine Salicylate/Aloe Vera 10% Crm 85 Gm Tube) 1 gm TOP Q2H PRN PRN Reason: Pain (moderate 4-6) Last Admin: 06/22/21 11:23 Dose: 1 applic Documented by: Trospium (Trospium 20 Mg Tab) 20 mg PO BID [facility] Last Admin: 06/22/21 08:10 Dose: 20 mg Documented by: Zinc Sulfate (Zinc Sulfate 220 Mg Cap) 220 mg PO DAILY [facility] Last Admin: 06/22/21 08:11 Dose: 220 mg Documented by: Discontinued Medications Acetaminophen (Acetaminophen 325 Mg Tab) 975 mg PO NOW ONE Stop: 06/09/21 21:16 Last Admin: 06/09/21 21:41 Dose: 350 mg Documented by: Acetaminophen (Acetaminophen 650 Mg Supp) 650 mg RECTAL NOW ONE Stop: 06/09/21 21:52 Last Admin: 06/09/21 22:30 Dose: 650 mg Documented by: Acetaminophen (Acetaminophen 325 Mg Tab) 650 mg PO Q4H PRN PRN Reason: Pain (Mild 1-3)/fever Last Admin: 06/12/21 08:10 Dose: 650 mg Documented by: Acetaminophen (Acetaminophen 325 Mg Tab) 975 mg PO Q8HR [facility] Acetaminophen (Acetaminophen 325 Mg Tab) 650 mg PO Q8H [facility] Last Admin: 06/12/21 11:51 Dose: Not Given Documented by: Acetaminophen (Acetaminophen 325 Mg Tab) 650 mg PO Q8H [facility] Last Admin: 06/16/21 02:16 Dose: Not Given Documented by: Carbidopa/Levodopa (Carbidopa/Levodopa 25-100 Mg Tab) 1 tab PO QID [facility] Last Admin: 06/10/21 16:54 Dose: 1 tab Documented by: Dexamethasone (Dexamethasone 4 Mg/Ml 5 Ml Mdv) 6 mg IV ONETIME ONE Stop: 06/10/21 00:53 Last Admin: 06/10/21 01:31 Dose: 6 mg Documented by: Dexamethasone (Dexamethasone 4 Mg Tab) 6 mg PO DAILY [facility] Stop: 06/18/21 09:01 Last Admin: 06/12/21 08:55 Dose: 6 mg Documented by: Dexamethasone (Dexamethasone 4 Mg Tab) 6 mg PO BID [facility] Last Admin: 06/19/21 09:25 Dose: 6 mg Documented by: Enoxaparin Sodium (Enoxaparin 40 Mg/0.4 Ml Syringe) 40 mg SUBCUT DAILY [facility] Last Admin: 06/14/21 10:24 Dose: 40 mg Documented by: Enoxaparin Sodium (Enoxaparin 100 Mg/1 Ml Syringe) 100 mg SUBCUT Q12H [facility] Last Admin: 06/15/21 22:00 Dose: 100 mg Documented by: Glimepiride (Glimepiride 2 Mg Tab) 4 mg PO DAILY [facility] Last Admin: 06/10/21 09:51 Dose: 4 mg Documented by: Glimepiride (Glimepiride 2 Mg Tab) 2 mg PO WITHBREAKFAST [facility] Last Admin: 06/11/21 06:05 Dose: 2 mg Documented by: Sodium Chloride (Normal Saline) 1,000 mls @ 250 mls/hr IV ONETIME ONE Stop: 06/10/21 01:14 Last Infusion: 06/09/21 21:41 Dose: 250 mls/hr Documented by: Sodium Chloride (Normal Saline) Confirm Administered Dose 1,000 mls @ as directed .ROUTE .STK-MED ONE Stop: 06/09/21 21:19 Last Admin: 06/10/21 01:11 Dose: Not Given Documented by: Remdesivir 200 mg/ Sodium (Chloride) 250 mls @ 250 mls/hr IV ONETIME ONE Stop: 06/10/21 00:53 Last Admin: 06/10/21 01:47 Dose: 250 mls/hr Documented by: Remdesivir 100 mg/ Sodium (Chloride) 100 mls @ 100 mls/hr IV Q24H [facility] Stop: 06/13/21 21:59 Last Admin: 06/13/21 21:19 Dose: 100 mls/hr Documented by: Ceftriaxone Sodium 1 gm/ (Sodium Chloride) 100 mls @ 200 mls/hr IV Q24H [facility] Last Admin: 06/11/21 09:01 Dose: 200 mls/hr Documented by: Ceftriaxone Sodium 2 gm/ (Sodium Chloride) 100 mls @ 200 mls/hr IV Q24H [facility] Stop: 06/16/21 09:29 Last Admin: 06/15/21 09:19 Dose: 200 mls/hr Documented by: Azithromycin 500 mg/ Sodium (Chloride) 250 mls @ 250 mls/hr IV Q24H [facility] Stop: 06/14/21 08:59 Last Admin: 06/14/21 08:49 Dose: 250 mls/hr Documented by: Sodium Chloride (Normal Saline) 100 mls @ 75 mls/hr IV ASDIRECTED [facility] Stop: 06/13/21 13:00 Last Admin: 06/13/21 09:52 Dose: 75 mls/hr Documented by: Lactated Ringer's (Ringers, Lactated) 1,000 mls @ 150 mls/hr IV ASDIRECTED [facility] Last Admin: 06/16/21 06:45 Dose: 150 mls/hr Documented by: Lactated Ringer's (Ringers, Lactated) Confirm Administered Dose 1,000 mls @ as directed .ROUTE .STK-MED ONE Stop: 06/16/21 06:44 Last Admin: 06/16/21 08:07 Dose: Not Given Documented by: Piperacillin Sod/Tazobactam (Sod 4.5 gm/ Sodium Chloride) 100 mls @ 200 mls/hr IV ONETIME ONE Stop: 06/16/21 08:31 Last Admin: 06/16/21 09:13 Dose: 200 mls/hr Documented by: Piperacillin Sod/Tazobactam (Sod 4.5 gm/ Sodium Chloride) 100 mls @ 25 mls/hr IV Q8H [facility] Stop: 06/21/21 16:01 Last Admin: 06/21/21 15:00 Dose: 25 mls/hr Documented by: Lactated Ringer's (Ringers, Lactated) 1,000 mls @ 75 mls/hr IV ASDIRECTED [facility] Last Admin: 06/16/21 22:47 Dose: 75 mls/hr Documented by: Insulin Glargine (Insulin Glarg,Human.Rec.Analog 100 Unit/Ml) 24 unit SUBCUT BEDTIME [facility] Insulin Glargine (Insulin Glargine,Hum.Rec.Anlog 100 Unit/Ml 3 Ml Pen) 24 unit SUBCUT BEDTIME [facility] Last Admin: 06/10/21 21:05 Dose: 24 units Documented by: Insulin Glargine (Insulin Glargine,Hum.Rec.Anlog 100 Unit/Ml 3 Ml Pen) 28 unit SUBCUT BEDTIME [facility] Last Admin: 06/11/21 21:21 Dose: 28 units Documented by: Insulin Glargine (Insulin Glargine,Hum.Rec.Anlog 100 Unit/Ml 3 Ml Pen) 32 unit SUBCUT BEDTIME [facility] Last Admin: 06/19/21 21:29 Dose: 32 unit Documented by: Insulin Human Isoph/Insulin Regular (Insulin Nph/Insulin Regular,Human 70-30 100 Units/Ml 10 Ml Vial) 0 units SUBCUT BIDAC [facility]; Protocol Last Admin: 06/10/21 02:36 Dose: Not Given Documented by: Insulin Human Lispro (Insulin Lispro 100 Unit/Ml 3 Ml Kwikpen) 0 unit SUBCUT QIDACANDBED [facility]; Protocol Last Admin: 06/10/21 12:15 Dose: Not Given Documented by: Insulin Human Regular (Insulin Regular, Human 100 Units/Ml 3 Ml Vial) 0 unit SUBCUT [facility]; Protocol Last Admin: 06/12/21 09:12 Dose: 6 unit Documented by: Iopamidol (Iopamidol 755 Mg/Ml 100 Ml Bottle) 100 ml IVPUSH ONETIME ONE Stop: 06/09/21 23:54 Last Admin: 06/10/21 00:24 Dose: 100 ml Documented by: Iopamidol (Iopamidol 755 Mg/Ml 100 Ml Bottle) 100 ml IVPUSH ONETIME ONE Stop: 06/13/21 08:56 Last Admin: 06/13/21 09:52 Dose: 100 ml Documented by: Magnesium Hydroxide (Magnesium Hydroxide 400 Mg/5 Ml Susp 30 Ml Cup) 30 ml PO ONETIME ONE Stop: 06/13/21 06:01 Last Admin: 06/13/21 06:18 Dose: 30 ml Documented by: Magnesium Hydroxide (Magnesium Hydroxide 400 Mg/5 Ml Susp 30 Ml Cup) 30 ml PO ONETIME ONE Stop: 06/22/21 13:01 Metformin HCl (Metformin 500 Mg Tab) [facility] Last Admin: 06/11/21 06:06 Dose: 1,000 mg Documented by: Morphine Sulfate (Morphine 2 Mg/Ml Syringe) 2 mg IVPUSH Q2H PRN PRN Reason: Pain (severe 7-10) Stop: 06/11/21 07:46 Non-Formulary Medication (Tresiba) 24 units SQ ONETIME ONE Stop: 06/10/21 03:46 Last Admin: 06/10/21 03:45 Dose: 24 units Documented by: Carbidopa/Levodopa 25-250 Tab Own Med 1 tab PO 0600,1100,1500,1900,2300 [facility] Last Admin: 06/11/21 05:29 Dose: 1 tab Documented by: Non-Formulary Medication (Sitagliptin Phos/Metformin Hcl [Janumet 50-1,000 Mg]) 1 tab PO BID [facility] Non-Formulary Medication (Non-Formulary Medication 1 Each) 1 each PO BID [facility] Pantoprazole Sodium (Pantoprazole 40 Mg Vial) 80 mg IVPUSH BOLUS ONE Stop: 06/16/21 07:05 Last Admin: 06/16/21 08:03 Dose: 80 mg Documented by: Sodium Chloride (Sodium Chloride 0.9% 10 Ml Syringe) 10 ml FLUSH ONETIME PRN PRN Reason: IV FLUSH Stop: 06/13/21 13:00 Trospium (Trospium 20 Mg Tab) 10 mg PO BID [facility] Last Admin: 06/10/21 21:03 Dose: 10 mg Documented by: - Exam Quality Assessment: Supplemental Oxygen (5 L per nasal cannula), DVT Prophylaxis (Heparin drip) Urinary Catheter Total Time: 1Days 9Hours General: Alert, Oriented, Cooperative, No Acute Distress HEENT: Pupils Equal, Mucous Membr. Moist/[place] Neck: Supple, Trachea Midline Lungs: Normal Respiratory Effort, Crackles (Bilaterally) Cardiovascular: Regular Rate, Regular Rhythm, No Murmurs GI/Abdominal Exam: Normal Bowel Sounds, Soft, Non-Tender, No Distention (Male) Exam: Deferred Back Exam: Normal Inspection Extremities: Normal Inspection, Normal Range of Motion, Non-Tender, No Pedal Edema, Normal Capillary Refill Peripheral Pulses: 2+: Radial (L), Radial (R), Dorsalis Pedis (L), Dorsalis Pedis (R) Skin: Warm, Dry, Intact Neurological: No New Focal Deficit Psy/Mental Status: Alert, Normal Affect, Normal Mood - Patient Data Lab Results Last 24 hrs: Laboratory Results - last 24 hr 06/21/21 06/21/21 06/21/21 Range/Units 17:22 17:26 20:56 WBC (4.23-9.07) K/mm3 RBC (4.63-6.08) M/mm3 Hgb (13.7-17.5) gm/dl Hct (40.1-51.0) % MCV (79.0-92.2) fl MCH (25.7-32.2) pg MCHC (32.2-35.5) g/dl RDW Std Deviation (35.1-43.9) fL Plt Count (163-337) K/mm3 MPV (9.4-12.3) fl Neut % (Auto) (34.0-67.9) % Lymph % (Auto) (21.8-53.1) % [place] % (Auto) (5.3-12.2) % Eos % (Auto) (0.8-7.0) Baso % (Auto) (0.1-1.2) % Neut # (Auto) (1.78-5.38) K/mm3 Lymph # (Auto) (1.32-3.57) K/mm3 [place] # (Auto) (0.30-0.82) K/mm3 Eos # (Auto) (0.04-0.54) K/mm3 Baso # (Auto) (0.01-0.08) K/mm3 APTT 61.1 H (21.7-31.4) SECONDS D-Dimer, Quantitative Sodium (136-145) mEq/L Potassium (3.5-5.1) mEq/L Chloride (98-107) mEq/L Carbon Dioxide (21-32) mEq/L Anion Gap (5-15) BUN (7-18) mg/dL Creatinine (0.7-1.3) mg/dL Est Cr Clr Drug Dosing mL/min Estimated GFR (MDRD) (>60) mL/min BUN/Creatinine Ratio (14-18) Glucose (70-99) mg/dL POC Glucose 327 H 280 H (70-99) mg/dL Calcium (8.5-10.1) mg/dL Ferritin (26-388) ng/ml C-Reactive Protein (<1.0) mg/dL 06/22/21 06/22/21 06/22/21 Range/Units 06:04 06:07 06:07 WBC (4.23-9.07) K/mm3 RBC (4.63-6.08) M/mm3 Hgb (13.7-17.5) gm/dl Hct (40.1-51.0) % MCV (79.0-92.2) fl MCH (25.7-32.2) pg MCHC (32.2-35.5) g/dl RDW Std Deviation (35.1-43.9) fL Plt Count (163-337) K/mm3 MPV (9.4-12.3) fl Neut % (Auto) (34.0-67.9) % Lymph % (Auto) (21.8-53.1) % [place] % (Auto) (5.3-12.2) % Eos % (Auto) (0.8-7.0) Baso % (Auto) (0.1-1.2) % Neut # (Auto) (1.78-5.38) K/mm3 Lymph # (Auto) (1.32-3.57) K/mm3 [place] # (Auto) (0.30-0.82) K/mm3 Eos # (Auto) (0.04-0.54) K/mm3 Baso # (Auto) (0.01-0.08) K/mm3 APTT 56.2 H (21.7-31.4) SECONDS D-Dimer, Quantitative Cancelled Sodium 140 (136-145) mEq/L Potassium 4.3 (3.5-5.1) mEq/L Chloride 102 (98-107) mEq/L Carbon Dioxide 34 H (21-32) mEq/L Anion Gap 8.3 (5-15) BUN 24 H (7-18) mg/dL Creatinine 0.9 (0.7-1.3) mg/dL Est Cr Clr Drug Dosing 86.26 mL/min Estimated GFR (MDRD) > 60 (>60) mL/min BUN/Creatinine Ratio 26.7 H (14-18) Glucose 112 H (70-99) mg/dL POC Glucose 103 H (70-99) mg/dL Calcium 8.7 (8.5-10.1) mg/dL Ferritin (26-388) ng/ml C-Reactive Protein 1.4 H* (<1.0) mg/dL 06/22/21 06/22/21 06/22/21 Range/Units 06:07 06:07 06:07 WBC 10.39 H (4.23-9.07) K/mm3 RBC 4.34 L (4.63-6.08) M/mm3 Hgb 13.1 L (13.7-17.5) gm/dl Hct 41.6 (40.1-51.0) % MCV 95.9 H (79.0-92.2) fl MCH 30.2 (25.7-32.2) pg MCHC 31.5 L (32.2-35.5) g/dl RDW Std Deviation 47.6 H (35.1-43.9) fL Plt Count 199 (163-337) K/mm3 MPV 10.6 (9.4-12.3) fl Neut % (Auto) 82.6 H (34.0-67.9) % Lymph % (Auto) 9.6 L (21.8-53.1) % [place] % (Auto) 6.0 (5.3-12.2) % Eos % (Auto) 0.6 L (0.8-7.0) Baso % (Auto) 0.1 (0.1-1.2) % Neut # (Auto) 8.59 H (1.78-5.38) K/mm3 Lymph # (Auto) 1.00 L (1.32-3.57) K/mm3 [place] # (Auto) 0.62 (0.30-0.82) K/mm3 Eos # (Auto) 0.06 (0.04-0.54) K/mm3 Baso # (Auto) 0.01 (0.01-0.08) K/mm3 APTT (21.7-31.4) SECONDS D-Dimer, Quantitative 5.22 H Sodium (136-145) mEq/L Potassium (3.5-5.1) mEq/L Chloride (98-107) mEq/L Carbon Dioxide (21-32) mEq/L Anion Gap (5-15) BUN (7-18) mg/dL Creatinine (0.7-1.3) mg/dL Est Cr Clr Drug Dosing mL/min Estimated GFR (MDRD) (>60) mL/min BUN/Creatinine Ratio (14-18) Glucose (70-99) mg/dL POC Glucose (70-99) mg/dL Calcium (8.5-10.1) mg/dL Ferritin 1931 H (26-388) ng/ml C-Reactive Protein (<1.0) mg/dL 06/22/21 Range/Units 11:11 WBC (4.23-9.07) K/mm3 RBC (4.63-6.08) M/mm3 Hgb (13.7-17.5) gm/dl Hct (40.1-51.0) % MCV (79.0-92.2) fl MCH (25.7-32.2) pg MCHC (32.2-35.5) g/dl RDW Std Deviation (35.1-43.9) fL Plt Count (163-337) K/mm3 MPV (9.4-12.3) fl Neut % (Auto) (34.0-67.9) % Lymph % (Auto) (21.8-53.1) % [place] % (Auto) (5.3-12.2) % Eos % (Auto) (0.8-7.0) Baso % (Auto) (0.1-1.2) % Neut # (Auto) (1.78-5.38) K/mm3 Lymph # (Auto) (1.32-3.57) K/mm3 [place] # (Auto) (0.30-0.82) K/mm3 Eos # (Auto) (0.04-0.54) K/mm3 Baso # (Auto) (0.01-0.08) K/mm3 APTT (21.7-31.4) SECONDS D-Dimer, Quantitative Sodium (136-145) mEq/L Potassium (3.5-5.1) mEq/L Chloride (98-107) mEq/L Carbon Dioxide (21-32) mEq/L Anion Gap (5-15) BUN (7-18) mg/dL Creatinine (0.7-1.3) mg/dL Est Cr Clr Drug Dosing mL/min Estimated GFR (MDRD) (>60) mL/min BUN/Creatinine Ratio (14-18) Glucose (70-99) mg/dL POC Glucose 212 H (70-99) mg/dL Calcium (8.5-10.1) mg/dL Ferritin (26-388) ng/ml C-Reactive Protein (<1.0) mg/dL Result Diagrams: 06/22/21 06:07 06/22/21 06:07 Sepsis Event Note - Evaluation Sepsis Screening Result: No Definite Risk - Focused Exam Vital Signs: Vital Signs Temp Pulse Resp BP Pulse Ox Pulse Ox 06/22/21 11:14 98.2 F 71 17 124/58 L 92 L 06/22/21 08:34 90 L 06/22/21 07:49 97.5 F 59 L 17 138/76 90 L 06/22/21 02:47 96.1 F L 51 L 20 128/54 L 87 L - Problem List & Annotations (1) Acute respiratory failure due to COVID-19 SNOMED Code(s): 350794317 Code(s): U07.1 - COVID-19; J96.00 - ACUTE RESPIRATORY FAILURE, UNSP W HYPOXIA OR HYPERCAPNIA Status: Acute Priority: High Current Visit: Yes (2) Elevated C-reactive protein (CRP) SNOMED Code(s): 080029238351232 Code(s): R79.82 - ELEVATED C-REACTIVE PROTEIN (CRP) Status: Acute Priority: High Current Visit: Yes (3) Elevated d-dimer SNOMED Code(s): 035066450 Code(s): R79.89 - OTHER SPECIFIED ABNORMAL FINDINGS OF BLOOD CHEMISTRY Status: Acute Priority: High Current Visit: Yes (4) Pneumonia due to COVID-19 virus SNOMED Code(s): 428562255174272256 Code(s): U07.1 - COVID-19; J12.82 - PNEUMONIA DUE TO CORONAVIRUS DISEASE 2019 Status: Acute Priority: High Current Visit: Yes (5) Diabetes mellitus type 2 in nonobese SNOMED Code(s): 256667085 Code(s): E11.9 - TYPE 2 DIABETES MELLITUS WITHOUT COMPLICATIONS Status: Chronic Priority: High Current Visit: Yes (6) Parkinson's disease dementia SNOMED Code(s): 585393627830844 Code(s): G20 - PARKINSON'S DISEASE; F02.80 - DEMENTIA IN OTH DISEASES CLASSD ELSWHR W/O BEHAVRL DISTURB Status: Chronic Priority: High Current Visit: Yes Qualifiers: Dementia behavioral disturbance: without behavioral disturbance Qualified Code(s): G20 - Parkinson's disease; F02.80 - Dementia in other diseases classified elsewhere without behavioral disturbance (7) Aspiration into airway SNOMED Code(s): 939888812 Code(s): T17.908A - UNSP FB IN RESP TRACT, PART UNSP CAUSING OTH INJURY, INIT Status: Suspected Priority: High Current Visit: Yes Qualifiers: Encounter type: initial encounter Qualified Code(s): T17.908A - Unspecified foreign body in respiratory tract, part unspecified causing other injury, initial encounter (8) Elevated procalcitonin SNOMED Code(s): 597305598, [id number] Code(s): R79.89 - OTHER SPECIFIED ABNORMAL FINDINGS OF BLOOD CHEMISTRY Status: Resolved Priority: High Current Visit: Yes (9) GI bleed SNOMED Code(s): [id number] Code(s): K92.2 - GASTROINTESTINAL HEMORRHAGE, UNSPECIFIED Status: Resolved Priority: Medium Current Visit: Yes Qualifiers: GI bleed type/associated pathology: unspecified gastrointestinal hemorrhage type Qualified Code(s): K92.2 - Gastrointestinal hemorrhage, unspecified - Problem List Review Problem List Initiated/Reviewed/Updated: Yes - Assessment Assessment:: 06/22/2021 71-year-old male who was admitted to the floor due to Covid pneumonia. Patient did complete remdesivir treatment and is currently receiving dexamethasone. He was on oxygen at 4 L per nasal cannula this morning however respiratory therapy did have to increase him to 5 L. Chest x-ray was completed today.Radiologist impression portable view of the chest comparison to prior chest x-ray of 06/20/2021: Diffuse increased density is seen within the right chest. Lesser density within the left chest is seen. Heart size is normal. Upper mediastinum is stable. No acute change within the osseous structures is seen. Impression: 1. Worsening density within both sides of the chest, greater on the right side. Findings are compatible with worsening Covid pneumonia. However, patient denies worsening shortness of breath. Lung sounds continue to have crackles noted bilaterally. Patient continues on a heparin drip for DVT prophylaxis as throughout his stay here he did have a noted GI bleed. Coffee-ground emesis was noted and is questionable whether or not the patient aspirated. Patient did receive IV Zosyn to treat this and this course has been completed. He remains afebrile and there are no signs of worsening infection. Labs today revealWBC of 10.39, hemoglobin 13.1, hematocrit 41.6, platelet count 199, PTT 56.2, D-dimer 5.22, sodium 140, potassium 4.3, carbon dioxide 34, anion gap 8.3, BUN 24, creatinine 0.9, GFR greater than 60, ferritin 1931, C-reactive protein 1.4. Elevation in WBC likely due to dexamethasone for treatment of Covid. Patient continues to receive sliding scale insulin and 4 times daily Accu-Cheks. Unknown length of stay due to the severity of symptoms. - Plan Plan:: Plan: Remains status quo. Continue Covid protocol and conventional therapies to include dexamethasone, oxygen therapy and nebulizer treatments as well as incentive spirometry and Acapella. RT consult with supplemental oxygen with titration as necessary. Heparin infusion for hypercoagulable prophylaxis, meanwhile being mindful of any new GI bleeding. Glucose control with hyperglycemia protocol with expected higher sugars due to steroids. CODE STATUS: Full code. DVT prophylaxis; systemic anticoagulation with heparin infusion. <Matthew Wolf Jr - Last Filed: 06/22/21 19:35> - Patient Data Vitals - Most Recent: Last Vital Signs Temp 98.2 F 06/22/21 11:14 Pulse 71 06/22/21 11:14 Resp 17 06/22/21 11:14 BP 124/58 L 06/22/21 11:14 Pulse Ox 94 L 06/22/21 15:04 I&O - Last 24 Hours: Intake & Output 06/22/21 06/22/21 06/22/21 06:59 14:59 22:59 Intake Total 109 945 4129 Balance 790 398 1984 Lab Results Last 24 Hours: Laboratory Results - last 24 hr 06/21/21 06/22/21 06/22/21 Range/Units 20:56 06:04 06:07 WBC (4.23-9.07) K/mm3 RBC (4.63-6.08) M/mm3 Hgb (13.7-17.5) gm/dl Hct (40.1-51.0) % MCV (79.0-92.2) fl MCH (25.7-32.2) pg MCHC (32.2-35.5) g/dl RDW Std Deviation (35.1-43.9) fL Plt Count (163-337) K/mm3 MPV (9.4-12.3) fl Neut % (Auto) (34.0-67.9) % Lymph % (Auto) (21.8-53.1) % [place] % (Auto) (5.3-12.2) % Eos % (Auto) (0.8-7.0) Baso % (Auto) (0.1-1.2) % Neut # (Auto) (1.78-5.38) K/mm3 Lymph # (Auto) (1.32-3.57) K/mm3 [place] # (Auto) (0.30-0.82) K/mm3 Eos # (Auto) (0.04-0.54) K/mm3 Baso # (Auto) (0.01-0.08) K/mm3 APTT 56.2 H (21.7-31.4) SECONDS D-Dimer, Quantitative Cancelled Sodium (136-145) mEq/L Potassium (3.5-5.1) mEq/L Chloride (98-107) mEq/L Carbon Dioxide (21-32) mEq/L Anion Gap (5-15) BUN (7-18) mg/dL Creatinine (0.7-1.3) mg/dL Est Cr Clr Drug Dosing mL/min Estimated GFR (MDRD) (>60) mL/min BUN/Creatinine Ratio (14-18) Glucose (70-99) mg/dL POC Glucose 280 H 103 H (70-99) mg/dL Calcium (8.5-10.1) mg/dL Ferritin (26-388) ng/ml C-Reactive Protein (<1.0) mg/dL 06/22/21 06/22/21 06/22/21 Range/Units 06:07 06:07 06:07 WBC 10.39 H (4.23-9.07) K/mm3 RBC 4.34 L (4.63-6.08) M/mm3 Hgb 13.1 L (13.7-17.5) gm/dl Hct 41.6 (40.1-51.0) % MCV 95.9 H (79.0-92.2) fl MCH 30.2 (25.7-32.2) pg MCHC 31.5 L (32.2-35.5) g/dl RDW Std Deviation 47.6 H (35.1-43.9) fL Plt Count 199 (163-337) K/mm3 MPV 10.6 (9.4-12.3) fl Neut % (Auto) 82.6 H (34.0-67.9) % Lymph % (Auto) 9.6 L (21.8-53.1) % [place] % (Auto) 6.0 (5.3-12.2) % Eos % (Auto) 0.6 L (0.8-7.0) Baso % (Auto) 0.1 (0.1-1.2) % Neut # (Auto) 8.59 H (1.78-5.38) K/mm3 Lymph # (Auto) 1.00 L (1.32-3.57) K/mm3 [place] # (Auto) 0.62 (0.30-0.82) K/mm3 Eos # (Auto) 0.06 (0.04-0.54) K/mm3 Baso # (Auto) 0.01 (0.01-0.08) K/mm3 APTT (21.7-31.4) SECONDS D-Dimer, Quantitative 5.22 H Sodium 140 (136-145) mEq/L Potassium 4.3 (3.5-5.1) mEq/L Chloride 102 (98-107) mEq/L Carbon Dioxide 34 H (21-32) mEq/L Anion Gap 8.3 (5-15) BUN 24 H (7-18) mg/dL Creatinine 0.9 (0.7-1.3) mg/dL Est Cr Clr Drug Dosing 86.26 mL/min Estimated GFR (MDRD) > 60 (>60) mL/min BUN/Creatinine Ratio 26.7 H (14-18) Glucose 112 H (70-99) mg/dL POC Glucose (70-99) mg/dL Calcium 8.7 (8.5-10.1) mg/dL Ferritin (26-388) ng/ml C-Reactive Protein 1.4 H* (<1.0) mg/dL 06/22/21 06/22/21 06/22/21 Range/Units 06:07 11:11 16:05 WBC (4.23-9.07) K/mm3 RBC (4.63-6.08) M/mm3 Hgb (13.7-17.5) gm/dl Hct (40.1-51.0) % MCV (79.0-92.2) fl MCH (25.7-32.2) pg MCHC (32.2-35.5) g/dl RDW Std Deviation (35.1-43.9) fL Plt Count (163-337) K/mm3 MPV (9.4-12.3) fl Neut % (Auto) (34.0-67.9) % Lymph % (Auto) (21.8-53.1) % [place] % (Auto) (5.3-12.2) % Eos % (Auto) (0.8-7.0) Baso % (Auto) (0.1-1.2) % Neut # (Auto) (1.78-5.38) K/mm3 Lymph # (Auto) (1.32-3.57) K/mm3 [place] # (Auto) (0.30-0.82) K/mm3 Eos # (Auto) (0.04-0.54) K/mm3 Baso # (Auto) (0.01-0.08) K/mm3 APTT (21.7-31.4) SECONDS D-Dimer, Quantitative Sodium (136-145) mEq/L Potassium (3.5-5.1) mEq/L Chloride (98-107) mEq/L Carbon Dioxide (21-32) mEq/L Anion Gap (5-15) BUN (7-18) mg/dL Creatinine (0.7-1.3) mg/dL Est Cr Clr Drug Dosing mL/min Estimated GFR (MDRD) (>60) mL/min BUN/Creatinine Ratio (14-18) Glucose (70-99) mg/dL POC Glucose 212 H 364 H (70-99) mg/dL Calcium (8.5-10.1) mg/dL Ferritin 1931 H (26-388) ng/ml C-Reactive Protein (<1.0) mg/dL Med Orders - Current: Current Medications Acetaminophen (Acetaminophen 325 Mg Tab) 650 mg PO Q8H [facility] Last Admin: 06/22/21 13:04 Dose: 650 mg Documented by: Al Hydroxide/Mg Hydroxide (Aluminum Hydroxide/Magnesium Hydroxide/Simethicone Susp 30 Ml Cup) 30 ml PO Q4H PRN PRN Reason: Heartburn Last Admin: 06/14/21 21:37 Dose: 30 ml Documented by: Albuterol (Albuterol 6.7 Gm Inhaler) 0 gm INH QID PRN PRN Reason: SOB/Wheezing Last Admin: 06/22/21 15:08 Dose: 2 each Documented by: Albuterol/Ipratropium (Albuterol/Ipratropium 3.0-0.5 Mg/3 Ml Neb Soln) 3 ml NEB Q4H PRN PRN Reason: Shortness Of Breath/wheezing Last Admin: 06/22/21 08:33 Dose: 3 ml Documented by: Alogliptin Benzoate (Alogliptin 12.5 Mg Tab) 12.5 mg PO BIDMEALS [facility] Last Admin: 06/22/21 16:04 Dose: 12.5 mg Documented by: Ascorbic Acid (Ascorbic Acid 500 Mg Tab) 500 mg PO DAILY [facility] Last Admin: 06/22/21 08:10 Dose: 500 mg Documented by: Baricitinib (Baricitinib 2 Mg Tab) 4 mg PO DAILY [facility] Stop: 06/26/21 09:01 Last Admin: 06/22/21 08:10 Dose: 4 mg Documented by: Dexamethasone (Dexamethasone 4 Mg Tab) 6 mg PO DAILY [facility] Last Admin: 06/22/21 08:11 Dose: 6 mg Documented by: Docusate Sodium (Docusate Sodium 100 Mg Cap) 100 mg PO BID PRN PRN Reason: Constipation Last Admin: 06/14/21 12:07 Dose: 100 mg Documented by: Finasteride (Finasteride 5 Mg Tab) 5 mg PO DAILY [facility] Last Admin: 06/22/21 08:10 Dose: 5 mg Documented by: Guaifenesin/Phenylephrine HCl (Guaifenesin/Dextromethorphan 100-10 Mg/5 Ml Soln 5 Ml Cup) 10 ml PO Q6H PRN PRN Reason: Cough Heparin Sodium/Dextrose (Heparin 25,000 Units In D5w 500 Ml) 25,000 units in 500 mls @ 26 mls/hr IV TITRATE [facility]; Protocol Last Admin: 06/22/21 02:56 Dose: 29.6 ml/hr, 29.6 mls/hr Documented by: Insulin Glargine (Insulin Glargine,Hum.Rec.Anlog 100 Unit/Ml 3 Ml Pen) 28 unit SUBCUT BEDTIME [facility] Last Admin: 06/21/21 20:57 Dose: 28 units Documented by: Insulin Human Regular (Insulin Regular, Human 100 Units/Ml 3 Ml Vial) 0 unit SUBCUT QIDACANDBED [facility]; Protocol Last Admin: 06/22/21 16:09 Dose: 15 unit Documented by: Levothyroxine Sodium (Levothyroxine 50 Mcg Tab) 50 mcg PO ACBREAKFAST [facility] Last Admin: 06/22/21 06:06 Dose: 50 mcg Documented by: Melatonin (Melatonin 3 Mg Tab) 6 mg PO BEDTIME NALDO Last Admin: 06/21/21 21:07 Dose: 6 mg Documented by: Carbidopa/Levodopa 25-250 Tab Own Med 1 tab PO 0600,1100,1500,1900,2300 [facility] Last Admin: 06/22/21 18:18 Dose: 1 tab Documented by: Ondansetron HCl (Ondansetron 4 Mg Tab.Dis) 4 mg PO Q4H PRN PRN Reason: nausea, able to take PO Oxycodone HCl (Oxycodone 5 Mg Tab) 5 mg PO Q4H PRN PRN Reason: Pain (moderate 4-6) Last Admin: 06/21/21 03:05 Dose: 5 mg Documented by: Sodium Chloride (Sodium Chloride 0.9% 10 Ml Syringe) 10 ml FLUSH ASDIRECTED PRN PRN Reason: Keep Vein Open Last Admin: 06/10/21 00:24 Dose: 10 ml Documented by: Tamsulosin HCl (Tamsulosin 0.4 Mg Cap.Er) 0.4 mg PO BEDTIME [facility] Last Admin: 06/21/21 21:08 Dose: 0.4 mg Documented by: Temazepam (Temazepam 15 Mg Cap) 15 mg PO BEDTIME PRN PRN Reason: Sleep Last Admin: 06/21/21 22:24 Dose: 15 mg Documented by: Trolamine Salicylate (Trolamine Salicylate/Aloe Vera 10% Crm 85 Gm Tube) 1 gm TOP Q2H PRN PRN Reason: Pain (moderate 4-6) Last Admin: 06/22/21 11:23 Dose: 1 applic Documented by: Trospium (Trospium 20 Mg Tab) 20 mg PO BID [facility] Last Admin: 06/22/21 08:10 Dose: 20 mg Documented by: Zinc Sulfate (Zinc Sulfate 220 Mg Cap) 220 mg PO DAILY [facility] Last Admin: 06/22/21 08:11 Dose: 220 mg Documented by: Discontinued Medications Acetaminophen (Acetaminophen 325 Mg Tab) 975 mg PO NOW ONE Stop: 06/09/21 21:16 Last Admin: 06/09/21 21:41 Dose: 350 mg Documented by: Acetaminophen (Acetaminophen 650 Mg Supp) 650 mg RECTAL NOW ONE Stop: 06/09/21 21:52 Last Admin: 06/09/21 22:30 Dose: 650 mg Documented by: Acetaminophen (Acetaminophen 325 Mg Tab) 650 mg PO Q4H PRN PRN Reason: Pain (Mild 1-3)/fever Last Admin: 06/12/21 08:10 Dose: 650 mg Documented by: Acetaminophen (Acetaminophen 325 Mg Tab) 975 mg PO Q8HR [facility] Acetaminophen (Acetaminophen 325 Mg Tab) 650 mg PO Q8H [facility] Last Admin: 06/12/21 11:51 Dose: Not Given Documented by: Acetaminophen (Acetaminophen 325 Mg Tab) 650 mg PO Q8H [facility] Last Admin: 06/16/21 02:16 Dose: Not Given Documented by: Carbidopa/Levodopa (Carbidopa/Levodopa 25-100 Mg Tab) 1 tab PO QID [facility] Last Admin: 06/10/21 16:54 Dose: 1 tab Documented by: Dexamethasone (Dexamethasone 4 Mg/Ml 5 Ml Mdv) 6 mg IV ONETIME ONE Stop: 06/10/21 00:53 Last Admin: 06/10/21 01:31 Dose: 6 mg Documented by: Dexamethasone (Dexamethasone 4 Mg Tab) 6 mg PO DAILY [facility] Stop: 06/18/21 09:01 Last Admin: 06/12/21 08:55 Dose: 6 mg Documented by: Dexamethasone (Dexamethasone 4 Mg Tab) 6 mg PO BID [facility] Last Admin: 06/19/21 09:25 Dose: 6 mg Documented by: Enoxaparin Sodium (Enoxaparin 40 Mg/0.4 Ml Syringe) 40 mg SUBCUT DAILY [facility] Last Admin: 06/14/21 10:24 Dose: 40 mg Documented by: Enoxaparin Sodium (Enoxaparin 100 Mg/1 Ml Syringe) 100 mg SUBCUT Q12H [facility] Last Admin: 06/15/21 22:00 Dose: 100 mg Documented by: Glimepiride (Glimepiride 2 Mg Tab) 4 mg PO DAILY [facility] Last Admin: 06/10/21 09:51 Dose: 4 mg Documented by: Glimepiride (Glimepiride 2 Mg Tab) 2 mg PO WITHBREAKFAST [facility] Last Admin: 06/11/21 06:05 Dose: 2 mg Documented by: Sodium Chloride (Normal Saline) 1,000 mls @ 250 mls/hr IV ONETIME ONE Stop: 06/10/21 01:14 Last Infusion: 06/09/21 21:41 Dose: 250 mls/hr Documented by: Sodium Chloride (Normal Saline) Confirm Administered Dose 1,000 mls @ as directed .ROUTE .STK-MED ONE Stop: 06/09/21 21:19 Last Admin: 06/10/21 01:11 Dose: Not Given Documented by: Remdesivir 200 mg/ Sodium (Chloride) 250 mls @ 250 mls/hr IV ONETIME ONE Stop: 06/10/21 00:53 Last Admin: 06/10/21 01:47 Dose: 250 mls/hr Documented by: Remdesivir 100 mg/ Sodium (Chloride) 100 mls @ 100 mls/hr IV Q24H [facility] Stop: 06/13/21 21:59 Last Admin: 06/13/21 21:19 Dose: 100 mls/hr Documented by: Ceftriaxone Sodium 1 gm/ (Sodium Chloride) 100 mls @ 200 mls/hr IV Q24H [facility] Last Admin: 06/11/21 09:01 Dose: 200 mls/hr Documented by: Ceftriaxone Sodium 2 gm/ (Sodium Chloride) 100 mls @ 200 mls/hr IV Q24H [facility] Stop: 06/16/21 09:29 Last Admin: 06/15/21 09:19 Dose: 200 mls/hr Documented by: Azithromycin 500 mg/ Sodium (Chloride) 250 mls @ 250 mls/hr IV Q24H [facility] Stop: 06/14/21 08:59 Last Admin: 06/14/21 08:49 Dose: 250 mls/hr Documented by: Sodium Chloride (Normal Saline) 100 mls @ 75 mls/hr IV ASDIRECTED [facility] Stop: 06/13/21 13:00 Last Admin: 06/13/21 09:52 Dose: 75 mls/hr Documented by: Lactated Ringer's (Ringers, Lactated) 1,000 mls @ 150 mls/hr IV ASDIRECTED [facility] Last Admin: 06/16/21 06:45 Dose: 150 mls/hr Documented by: Lactated Ringer's (Ringers, Lactated) Confirm Administered Dose 1,000 mls @ as directed .ROUTE .STK-MED ONE Stop: 06/16/21 06:44 Last Admin: 06/16/21 08:07 Dose: Not Given Documented by: Piperacillin Sod/Tazobactam (Sod 4.5 gm/ Sodium Chloride) 100 mls @ 200 mls/hr IV ONETIME ONE Stop: 06/16/21 08:31 Last Admin: 06/16/21 09:13 Dose: 200 mls/hr Documented by: Piperacillin Sod/Tazobactam (Sod 4.5 gm/ Sodium Chloride) 100 mls @ 25 mls/hr IV Q8H [facility] Stop: 06/21/21 16:01 Last Admin: 06/21/21 15:00 Dose: 25 mls/hr Documented by: Lactated Ringer's (Ringers, Lactated) 1,000 mls @ 75 mls/hr IV ASDIRECTED [facility] Last Admin: 06/16/21 22:47 Dose: 75 mls/hr Documented by: Insulin Glargine (Insulin Glarg,Human.Rec.Analog 100 Unit/Ml) 24 unit SUBCUT BEDTIME [facility] Insulin Glargine (Insulin Glargine,Hum.Rec.Anlog 100 Unit/Ml 3 Ml Pen) 24 unit SUBCUT BEDTIME [facility] Last Admin: 06/10/21 21:05 Dose: 24 units Documented by: Insulin Glargine (Insulin Glargine,Hum.Rec.Anlog 100 Unit/Ml 3 Ml Pen) 28 unit SUBCUT BEDTIME [facility] Last Admin: 06/11/21 21:21 Dose: 28 units Documented by: Insulin Glargine (Insulin Glargine,Hum.Rec.Anlog 100 Unit/Ml 3 Ml Pen) 32 unit SUBCUT BEDTIME [facility] Last Admin: 06/19/21 21:29 Dose: 32 unit Documented by: Insulin Human Isoph/Insulin Regular (Insulin Nph/Insulin Regular,Human 70-30 100 Units/Ml 10 Ml Vial) 0 units SUBCUT BIDAC [facility]; Protocol Last Admin: 06/10/21 02:36 Dose: Not Given Documented by: Insulin Human Lispro (Insulin Lispro 100 Unit/Ml 3 Ml Kwikpen) 0 unit SUBCUT QIDACANDBED [facility]; Protocol Last Admin: 06/10/21 12:15 Dose: Not Given Documented by: Insulin Human Regular (Insulin Regular, Human 100 Units/Ml 3 Ml Vial) 0 unit SUBCUT TIDPC [facility]; Protocol Last Admin: 06/12/21 09:12 Dose: 6 unit Documented by: Iopamidol (Iopamidol 755 Mg/Ml 100 Ml Bottle) 100 ml IVPUSH ONETIME ONE Stop: 06/09/21 23:54 Last Admin: 06/10/21 00:24 Dose: 100 ml Documented by: Iopamidol (Iopamidol 755 Mg/Ml 100 Ml Bottle) 100 ml IVPUSH ONETIME ONE Stop: 06/13/21 08:56 Last Admin: 06/13/21 09:52 Dose: 100 ml Documented by: Magnesium Hydroxide (Magnesium Hydroxide 400 Mg/5 Ml Susp 30 Ml Cup) 30 ml PO ONETIME ONE Stop: 06/13/21 06:01 Last Admin: 06/13/21 06:18 Dose: 30 ml Documented by: Magnesium Hydroxide (Magnesium Hydroxide 400 Mg/5 Ml Susp 30 Ml Cup) 30 ml PO ONETIME ONE Stop: 06/22/21 13:01 Last Admin: 06/22/21 13:04 Dose: 30 ml Documented by: Metformin HCl (Metformin 500 Mg Tab) 1,000 mg PO BIDMEALS [facility] Last Admin: 06/11/21 06:06 Dose: 1,000 mg Documented by: Morphine Sulfate (Morphine 2 Mg/Ml Syringe) 2 mg IVPUSH Q2H PRN PRN Reason: Pain (severe 7-10) Stop: 06/11/21 07:46 Non-Formulary Medication (Tresiba) 24 units SQ ONETIME ONE Stop: 06/10/21 03:46 Last Admin: 06/10/21 03:45 Dose: 24 units Documented by: Carbidopa/Levodopa 25-250 Tab Own Med 1 tab PO 0600,1100,1500,1900,2300 [facility] Last Admin: 06/11/21 05:29 Dose: 1 tab Documented by: Non-Formulary Medication (Sitagliptin Phos/Metformin Hcl [Janumet 50-1,000 Mg]) 1 tab PO BID [facility] Non-Formulary Medication (Non-Formulary Medication 1 Each) 1 each PO BID [facility] Pantoprazole Sodium (Pantoprazole 40 Mg Vial) 80 mg IVPUSH BOLUS ONE Stop: 06/16/21 07:05 Last Admin: 06/16/21 08:03 Dose: 80 mg Documented by: Sodium Chloride (Sodium Chloride 0.9% 10 Ml Syringe) 10 ml FLUSH ONETIME PRN PRN Reason: IV FLUSH Stop: 06/13/21 13:00 Trospium (Trospium 20 Mg Tab) 10 mg PO BID [facility] Last Admin: 06/10/21 21:03 Dose: 10 mg Documented by: - Patient Data Lab Results Last 24 hrs: Laboratory Results - last 24 hr 06/21/21 06/22/21 06/22/21 Range/Units 20:56 06:04 06:07 WBC (4.23-9.07) K/mm3 RBC (4.63-6.08) M/mm3 Hgb (13.7-17.5) gm/dl Hct (40.1-51.0) % MCV (79.0-92.2) fl MCH (25.7-32.2) pg MCHC (32.2-35.5) g/dl RDW Std Deviation (35.1-43.9) fL Plt Count (163-337) K/mm3 MPV (9.4-12.3) fl Neut % (Auto) (34.0-67.9) % Lymph % (Auto) (21.8-53.1) % [place] % (Auto) (5.3-12.2) % Eos % (Auto) (0.8-7.0) Baso % (Auto) (0.1-1.2) % Neut # (Auto) (1.78-5.38) K/mm3 Lymph # (Auto) (1.32-3.57) K/mm3 [place] # (Auto) (0.30-0.82) K/mm3 Eos # (Auto) (0.04-0.54) K/mm3 Baso # (Auto) (0.01-0.08) K/mm3 APTT 56.2 H (21.7-31.4) SECONDS D-Dimer, Quantitative Cancelled Sodium (136-145) mEq/L Potassium (3.5-5.1) mEq/L Chloride (98-107) mEq/L Carbon Dioxide (21-32) mEq/L Anion Gap (5-15) BUN (7-18) mg/dL Creatinine (0.7-1.3) mg/dL Est Cr Clr Drug Dosing mL/min Estimated GFR (MDRD) (>60) mL/min BUN/Creatinine Ratio (14-18) Glucose (70-99) mg/dL POC Glucose 280 H 103 H (70-99) mg/dL Calcium (8.5-10.1) mg/dL Ferritin (26-388) ng/ml C-Reactive Protein (<1.0) mg/dL 06/22/21 06/22/21 06/22/21 Range/Units 06:07 06:07 06:07 WBC 10.39 H (4.23-9.07) K/mm3 RBC 4.34 L (4.63-6.08) M/mm3 Hgb 13.1 L (13.7-17.5) gm/dl Hct 41.6 (40.1-51.0) % MCV 95.9 H (79.0-92.2) fl MCH 30.2 (25.7-32.2) pg MCHC 31.5 L (32.2-35.5) g/dl RDW Std Deviation 47.6 H (35.1-43.9) fL Plt Count 199 (163-337) K/mm3 MPV 10.6 (9.4-12.3) fl Neut % (Auto) 82.6 H (34.0-67.9) % Lymph % (Auto) 9.6 L (21.8-53.1) % [place] % (Auto) 6.0 (5.3-12.2) % Eos % (Auto) 0.6 L (0.8-7.0) Baso % (Auto) 0.1 (0.1-1.2) % Neut # (Auto) 8.59 H (1.78-5.38) K/mm3 Lymph # (Auto) 1.00 L (1.32-3.57) K/mm3 [place] # (Auto) 0.62 (0.30-0.82) K/mm3 Eos # (Auto) 0.06 (0.04-0.54) K/mm3 Baso # (Auto) 0.01 (0.01-0.08) K/mm3 APTT (21.7-31.4) SECONDS D-Dimer, Quantitative 5.22 H Sodium 140 (136-145) mEq/L Potassium 4.3 (3.5-5.1) mEq/L Chloride 102 (98-107) mEq/L Carbon Dioxide 34 H (21-32) mEq/L Anion Gap 8.3 (5-15) BUN 24 H (7-18) mg/dL Creatinine 0.9 (0.7-1.3) mg/dL Est Cr Clr Drug Dosing 86.26 mL/min Estimated GFR (MDRD) > 60 (>60) mL/min BUN/Creatinine Ratio 26.7 H (14-18) Glucose 112 H (70-99) mg/dL POC Glucose (70-99) mg/dL Calcium 8.7 (8.5-10.1) mg/dL Ferritin (26-388) ng/ml C-Reactive Protein 1.4 H* (<1.0) mg/dL 06/22/21 06/22/21 06/22/21 Range/Units 06:07 11:11 16:05 WBC (4.23-9.07) K/mm3 RBC (4.63-6.08) M/mm3 Hgb (13.7-17.5) gm/dl Hct (40.1-51.0) % MCV (79.0-92.2) fl MCH (25.7-32.2) pg MCHC (32.2-35.5) g/dl RDW Std Deviation (35.1-43.9) fL Plt Count (163-337) K/mm3 MPV (9.4-12.3) fl Neut % (Auto) (34.0-67.9) % Lymph % (Auto) (21.8-53.1) % [place] % (Auto) (5.3-12.2) % Eos % (Auto) (0.8-7.0) Baso % (Auto) (0.1-1.2) % Neut # (Auto) (1.78-5.38) K/mm3 Lymph # (Auto) (1.32-3.57) K/mm3 [place] # (Auto) (0.30-0.82) K/mm3 Eos # (Auto) (0.04-0.54) K/mm3 Baso # (Auto) (0.01-0.08) K/mm3 APTT (21.7-31.4) SECONDS D-Dimer, Quantitative Sodium (136-145) mEq/L Potassium (3.5-5.1) mEq/L Chloride (98-107) mEq/L Carbon Dioxide (21-32) mEq/L Anion Gap (5-15) BUN (7-18) mg/dL Creatinine (0.7-1.3) mg/dL Est Cr Clr Drug Dosing mL/min Estimated GFR (MDRD) (>60) mL/min BUN/Creatinine Ratio (14-18) Glucose (70-99) mg/dL POC Glucose 212 H 364 H (70-99) mg/dL Calcium (8.5-10.1) mg/dL Ferritin 1931 H (26-388) ng/ml C-Reactive Protein (<1.0) mg/dL Result Diagrams: 06/22/21 06:07 06/22/21 06:07 Sepsis Event Note - Focused Exam Vital Signs: Vital Signs Temp Pulse Resp BP Pulse Ox Pulse Ox 06/22/21 15:04 94 L 06/22/21 11:14 98.2 F 71 17 124/58 L 92 L 06/22/21 08:34 90 L 06/22/21 07:49 97.5 F 59 L 17 138/76 90 L - My Orders Last 24 Hours: My Active Orders 06/23/21 05:01 aPTT [PTT,PARTIAL THROMBOPLSTIN TIME] [COAG] Timed - Plan Plan:: Case discussed in full. Agree with evaluation, assessment and plan.
[2021-06-22] MEDS ORDERED: Magnesium Hydroxide 400 MG/5 ML Susp 30 ML Cup PO ONE (13:00)
[2021-06-22] MEDS: Albuterol 6.7 GM Inhaler INH PRN (15:08)
[2021-06-22] MEDS: Insulin Glargine,Hum.Rec.Anlog 100 UNIT/ML 3 ML Pen SUBCUT SCH (21:21)
[2021-06-22] MEDS: Melatonin 3 MG Tab PO SCH (21:24)
[2021-06-22] MEDS: Tamsulosin 0.4 MG Cap.ER PO SCH (21:25)
[2021-06-22] MEDS: Temazepam 15 MG Cap PO PRN (23:24)
[2021-06-23] MEDS: oxyCODONE 5 MG Tab PO PRN (04:29)
[2021-06-23] MEDS: Acetaminophen 325 MG Tab PO SCH ×4 (04:30→20:38)
[2021-06-23] MEDS: Levothyroxine 50 MCG Tab PO SCH (06:48)
[2021-06-23] MEDS: CARBIDOPA PO SCH ×5 (06:48→23:00)
[2021-06-23] MEDS: LEVODOPA PO SCH ×5 (06:48→23:00)
[2021-06-23] MEDS: Albuterol 6.7 GM Inhaler INH PRN (08:11)
[2021-06-23] MEDS: Insulin Regular, Human 100 Units/ML 3 ML Vial SUBCUT SCH ×4 (08:55→20:42)
[2021-06-23] MEDS: Dexamethasone 4 MG Tab PO SCH (08:57)
[2021-06-23] MEDS: Ascorbic Acid 500 MG Tab PO SCH (08:58)
[2021-06-23] MEDS: Trospium 20 MG Tab PO SCH ×2 (08:59→20:40)
[2021-06-23] MEDS: Finasteride 5 MG Tab PO SCH (08:59)
[2021-06-23] MEDS: Zinc Sulfate 220 MG Cap PO SCH (09:00)
[2021-06-23] MEDS: Enoxaparin 100 MG/1 ML Syringe SUBCUT SCH ×2 (09:33→20:40)
--- NOTE | 2021-06-23 16:09 | PCM.PN ---
- General Info Date of Service: 06/23/21 Admission Dx/Problem (Free Text): Admission Diagnosis/Problem Admission Diagnosis/Problem acute respiratory failure due to COVID-19 pneumonia. Subjective Update: Patient condition seems to be stable. Still has mild cough. Does not have any new complaints. Denies nausea vomiting or diarrhea He is now on 4 L - Review of Systems Systems Review Comment:: Positive for shortness of breath. All other systems were reviewed and negative. - Patient Data Vitals - Most Recent: Last Vital Signs Temp 36.6 C 06/23/21 03:04 Pulse 53 L 06/23/21 03:04 Resp 18 06/23/21 03:04 BP 132/65 06/23/21 03:04 Pulse Ox 91 L 06/23/21 08:11 Weight - Most Recent: 105.642 kg I&O - Last 24 Hours: Intake & Output 06/23/21 06/23/21 06/23/21 06:59 14:59 22:59 Intake Total 736 Balance 736 Lab Results Last 24 Hours: Laboratory Results - last 24 hr 06/22/21 06/22/21 06/23/21 Range/Units 16:05 21:19 05:04 WBC 13.08 H (4.23-9.07) K/mm3 RBC 4.45 L (4.63-6.08) M/mm3 Hgb 13.5 L (13.7-17.5) gm/dl Hct 42.4 (40.1-51.0) % MCV 95.3 H (79.0-92.2) fl MCH 30.3 (25.7-32.2) pg MCHC 31.8 L (32.2-35.5) g/dl RDW Std Deviation 47.3 H (35.1-43.9) fL Plt Count 207 (163-337) K/mm3 MPV 10.3 (9.4-12.3) fl Neut % (Auto) 86.7 H (34.0-67.9) % Lymph % (Auto) 6.9 L (21.8-53.1) % [place] % (Auto) 5.1 L (5.3-12.2) % Eos % (Auto) 0.2 L (0.8-7.0) Baso % (Auto) 0.1 (0.1-1.2) % Neut # (Auto) 11.35 H (1.78-5.38) K/mm3 Lymph # (Auto) 0.90 L (1.32-3.57) K/mm3 [place] # (Auto) 0.67 (0.30-0.82) K/mm3 Eos # (Auto) 0.02 L (0.04-0.54) K/mm3 Baso # (Auto) 0.01 (0.01-0.08) K/mm3 APTT (21.7-31.4) SECONDS Sodium (136-145) mEq/L Potassium (3.5-5.1) mEq/L Chloride (98-107) mEq/L Carbon Dioxide (21-32) mEq/L Anion Gap (5-15) BUN (7-18) mg/dL Creatinine (0.7-1.3) mg/dL Est Cr Clr Drug Dosing mL/min Estimated GFR (MDRD) (>60) mL/min BUN/Creatinine Ratio (14-18) Glucose (70-99) mg/dL POC Glucose 364 H 299 H (70-99) mg/dL Calcium (8.5-10.1) mg/dL C-Reactive Protein (<1.0) mg/dL 06/23/21 06/23/21 06/23/21 Range/Units 05:04 05:04 06:47 WBC (4.23-9.07) K/mm3 RBC (4.63-6.08) M/mm3 Hgb (13.7-17.5) gm/dl Hct (40.1-51.0) % MCV (79.0-92.2) fl MCH (25.7-32.2) pg MCHC (32.2-35.5) g/dl RDW Std Deviation (35.1-43.9) fL Plt Count (163-337) K/mm3 MPV (9.4-12.3) fl Neut % (Auto) (34.0-67.9) % Lymph % (Auto) (21.8-53.1) % [place] % (Auto) (5.3-12.2) % Eos % (Auto) (0.8-7.0) Baso % (Auto) (0.1-1.2) % Neut # (Auto) (1.78-5.38) K/mm3 Lymph # (Auto) (1.32-3.57) K/mm3 [place] # (Auto) (0.30-0.82) K/mm3 Eos # (Auto) (0.04-0.54) K/mm3 Baso # (Auto) (0.01-0.08) K/mm3 APTT 53.6 H (21.7-31.4) SECONDS Sodium 139 (136-145) mEq/L Potassium 4.6 (3.5-5.1) mEq/L Chloride 101 (98-107) mEq/L Carbon Dioxide 32 (21-32) mEq/L Anion Gap 10.6 (5-15) BUN 25 H (7-18) mg/dL Creatinine 0.9 (0.7-1.3) mg/dL Est Cr Clr Drug Dosing 86.26 mL/min Estimated GFR (MDRD) > 60 (>60) mL/min BUN/Creatinine Ratio 27.8 H (14-18) Glucose 168 H (70-99) mg/dL POC Glucose 152 H (70-99) mg/dL Calcium 8.3 L (8.5-10.1) mg/dL C-Reactive Protein 0.9 (<1.0) mg/dL 06/23/ Range/Units 12:14 WBC (4.23-9.07) K/mm3 RBC (4.63-6.08) M/mm3 Hgb (13.7-17.5) gm/dl Hct (40.1-51.0) % MCV (79.0-92.2) fl MCH (25.7-32.2) pg MCHC (32.2-35.5) g/dl RDW Std Deviation (35.1-43.9) fL Plt Count (163-337) K/mm3 MPV (9.4-12.3) fl Neut % (Auto) (34.0-67.9) % Lymph % (Auto) (21.8-53.1) % [place] % (Auto) (5.3-12.2) % Eos % (Auto) (0.8-7.0) Baso % (Auto) (0.1-1.2) % Neut # (Auto) (1.78-5.38) K/mm3 Lymph # (Auto) (1.32-3.57) K/mm3 [place] # (Auto) (0.30-0.82) K/mm3 Eos # (Auto) (0.04-0.54) K/mm3 Baso # (Auto) (0.01-0.08) K/mm3 APTT (21.7-31.4) SECONDS Sodium (136-145) mEq/L Potassium (3.5-5.1) mEq/L Chloride (98-107) mEq/L Carbon Dioxide (21-32) mEq/L Anion Gap (5-15) BUN (7-18) mg/dL Creatinine (0.7-1.3) mg/dL Est Cr Clr Drug Dosing mL/min Estimated GFR (MDRD) (>60) mL/min BUN/Creatinine Ratio (14-18) Glucose (70-99) mg/dL POC Glucose 238 H (70-99) mg/dL Calcium (8.5-10.1) mg/dL C-Reactive Protein (<1.0) mg/dL Med Orders - Current: Current Medications Acetaminophen (Acetaminophen 325 Mg Tab) 650 mg PO Q8H [facility] Last Admin: 06/23/21 13:58 Dose: 650 mg Documented by: Al Hydroxide/Mg Hydroxide (Aluminum Hydroxide/Magnesium Hydroxide/Simethicone Susp 30 Ml Cup) 30 ml PO Q4H PRN PRN Reason: Heartburn Last Admin: 06/14/21 21:37 Dose: 30 ml Documented by: Albuterol (Albuterol 6.7 Gm Inhaler) 0 gm INH QID PRN PRN Reason: SOB/Wheezing Last Admin: 06/23/21 08:11 Dose: 2 puff Documented by: Albuterol/Ipratropium (Albuterol/Ipratropium 3.0-0.5 Mg/3 Ml Neb Soln) 3 ml NEB Q4H PRN PRN Reason: Shortness Of Breath/wheezing Last Admin: 06/22/21 08:33 Dose: 3 ml Documented by: Alogliptin Benzoate (Alogliptin 12.5 Mg Tab) 12.5 mg PO BIDMEALS [facility] Last Admin: 06/23/21 06:48 Dose: 12.5 mg Documented by: Ascorbic Acid (Ascorbic Acid 500 Mg Tab) 500 mg PO DAILY [facility] Last Admin: 06/23/21 08:58 Dose: 500 mg Documented by: Baricitinib (Baricitinib 2 Mg Tab) 4 mg PO DAILY [facility] Stop: 06/26/21 09:01 Last Admin: 06/23/21 08:58 Dose: 4 mg Documented by: Dexamethasone (Dexamethasone 4 Mg Tab) 6 mg PO DAILY [facility] Last Admin: 06/23/21 08:57 Dose: 6 mg Documented by: Docusate Sodium (Docusate Sodium 100 Mg Cap) 100 mg PO BID PRN PRN Reason: Constipation Last Admin: 06/14/21 12:07 Dose: 100 mg Documented by: Enoxaparin Sodium (Enoxaparin 100 Mg/1 Ml Syringe) 100 mg SUBCUT Q12H [facility] Last Admin: 06/23/21 09:33 Dose: 100 mg Documented by: Finasteride (Finasteride 5 Mg Tab) 5 mg PO DAILY [facility] Last Admin: 06/23/21 08:59 Dose: 5 mg Documented by: Guaifenesin/Phenylephrine HCl (Guaifenesin/Dextromethorphan 100-10 Mg/5 Ml Soln 5 Ml Cup) 10 ml PO Q6H PRN PRN Reason: Cough Insulin Glargine (Insulin Glargine,Hum.Rec.Anlog 100 Unit/Ml 3 Ml Pen) 28 unit SUBCUT BEDTIME [facility] Last Admin: 06/22/21 21:21 Dose: 28 units Documented by: Insulin Human Regular (Insulin Regular, Human 100 Units/Ml 3 Ml Vial) 0 unit SUBCUT QIDACANDBED [facility]; Protocol Last Admin: 06/23/21 12:32 Dose: 6 unit Documented by: Levothyroxine Sodium (Levothyroxine 50 Mcg Tab) 50 mcg PO ACBREAKFAST [facility] Last Admin: 06/23/21 06:48 Dose: 50 mcg Documented by: Melatonin (Melatonin 3 Mg Tab) 6 mg PO BEDTIME [facility] Last Admin: 06/22/21 21:24 Dose: 6 mg Documented by: Carbidopa/Levodopa 25-250 Tab Own Med 1 tab PO 0600,1100,1500,1900,2300 [facility] Last Admin: 06/23/21 12:32 Dose: 1 tab Documented by: Ondansetron HCl (Ondansetron 4 Mg Tab.Dis) 4 mg PO Q4H PRN PRN Reason: nausea, able to take PO Oxycodone HCl (Oxycodone 5 Mg Tab) 5 mg PO Q4H PRN PRN Reason: Pain (moderate 4-6) Last Admin: 06/23/21 04:29 Dose: 5 mg Documented by: Sodium Chloride (Sodium Chloride 0.9% 10 Ml Syringe) 10 ml FLUSH ASDIRECTED PRN PRN Reason: Keep Vein Open Last Admin: 06/10/21 00:24 Dose: 10 ml Documented by: Tamsulosin HCl (Tamsulosin 0.4 Mg Cap.Er) 0.4 mg PO BEDTIME [facility] Last Admin: 06/22/21 21:25 Dose: 0.4 mg Documented by: Temazepam (Temazepam 15 Mg Cap) 15 mg PO BEDTIME PRN PRN Reason: Sleep Last Admin: 06/22/21 23:24 Dose: 15 mg Documented by: Trolamine Salicylate (Trolamine Salicylate/Aloe Vera 10% Crm 85 Gm Tube) 1 gm TOP Q2H PRN PRN Reason: Pain (moderate 4-6) Last Admin: 06/22/21 11:23 Dose: 1 applic Documented by: Trospium (Trospium 20 Mg Tab) 20 mg PO BID [facility] Last Admin: 06/23/21 08:59 Dose: 20 mg Documented by: Zinc Sulfate (Zinc Sulfate 220 Mg Cap) 220 mg PO DAILY [facility] Last Admin: 06/23/21 09:00 Dose: 220 mg Documented by: Discontinued Medications Acetaminophen (Acetaminophen 325 Mg Tab) 975 mg PO NOW ONE Stop: 06/09/21 21:16 Last Admin: 06/09/21 21:41 Dose: 350 mg Documented by: Acetaminophen (Acetaminophen 650 Mg Supp) 650 mg RECTAL NOW ONE Stop: 06/09/21 21:52 Last Admin: 06/09/21 22:30 Dose: 650 mg Documented by: Acetaminophen (Acetaminophen 325 Mg Tab) 650 mg PO Q4H PRN PRN Reason: Pain (Mild 1-3)/fever Last Admin: 06/12/21 08:10 Dose: 650 mg Documented by: Acetaminophen (Acetaminophen 325 Mg Tab) 975 mg PO Q8HR [facility] Acetaminophen (Acetaminophen 325 Mg Tab) 650 mg PO Q8H [facility] Last Admin: 06/12/21 11:51 Dose: Not Given Documented by: Acetaminophen (Acetaminophen 325 Mg Tab) 650 mg PO Q8H [facility] Last Admin: 06/16/21 02:16 Dose: Not Given Documented by: Carbidopa/Levodopa (Carbidopa/Levodopa 25-100 Mg Tab) 1 tab PO QID [facility] Last Admin: 06/10/21 16:54 Dose: 1 tab Documented by: Dexamethasone (Dexamethasone 4 Mg/Ml 5 Ml Mdv) 6 mg IV ONETIME ONE Stop: 06/10/21 00:53 Last Admin: 06/10/21 01:31 Dose: 6 mg Documented by: Dexamethasone (Dexamethasone 4 Mg Tab) 6 mg PO DAILY [facility] Stop: 06/18/21 09:01 Last Admin: 06/12/21 08:55 Dose: 6 mg Documented by: Dexamethasone (Dexamethasone 4 Mg Tab) 6 mg PO BID [facility] Last Admin: 06/19/21 09:25 Dose: 6 mg Documented by: Enoxaparin Sodium (Enoxaparin 40 Mg/0.4 Ml Syringe) 40 mg SUBCUT DAILY [facility] Last Admin: 06/14/21 10:24 Dose: 40 mg Documented by: Enoxaparin Sodium (Enoxaparin 100 Mg/1 Ml Syringe) 100 mg SUBCUT Q12H [facility] Last Admin: 06/15/21 22:00 Dose: 100 mg Documented by: Glimepiride (Glimepiride 2 Mg Tab) 4 mg PO DAILY [facility] Last Admin: 06/10/21 09:51 Dose: 4 mg Documented by: Glimepiride (Glimepiride 2 Mg Tab) 2 mg PO WITHBREAKFAST [facility] Last Admin: 06/11/21 06:05 Dose: 2 mg Documented by: Sodium Chloride (Normal Saline) 1,000 mls @ 250 mls/hr IV ONETIME ONE Stop: 06/10/21 01:14 Last Infusion: 06/09/21 21:41 Dose: 250 mls/hr Documented by: Sodium Chloride (Normal Saline) Confirm Administered Dose 1,000 mls @ as directed .ROUTE .STK-MED ONE Stop: 06/09/21 21:19 Last Admin: 06/10/21 01:11 Dose: Not Given Documented by: Remdesivir 200 mg/ Sodium (Chloride) 250 mls @ 250 mls/hr IV ONETIME ONE Stop: 06/10/21 00:53 Last Admin: 06/10/21 01:47 Dose: 250 mls/hr Documented by: Remdesivir 100 mg/ Sodium (Chloride) 100 mls @ 100 mls/hr IV Q24H [facility] Stop: 06/13/21 21:59 Last Admin: 06/13/21 21:19 Dose: 100 mls/hr Documented by: Ceftriaxone Sodium 1 gm/ (Sodium Chloride) 100 mls @ 200 mls/hr IV Q24H [facility] Last Admin: 06/11/21 09:01 Dose: 200 mls/hr Documented by: Ceftriaxone Sodium 2 gm/ (Sodium Chloride) 100 mls @ 200 mls/hr IV Q24H [facility] Stop: 06/16/21 09:29 Last Admin: 06/15/21 09:19 Dose: 200 mls/hr Documented by: Azithromycin 500 mg/ Sodium (Chloride) 250 mls @ 250 mls/hr IV Q24H [facility] Stop: 06/14/21 08:59 Last Admin: 06/14/21 08:49 Dose: 250 mls/hr Documented by: Sodium Chloride (Normal Saline) 100 mls @ 75 mls/hr IV ASDIRECTED [facility] Stop: 06/13/21 13:00 Last Admin: 06/13/21 09:52 Dose: 75 mls/hr Documented by: Lactated Ringer's (Ringers, Lactated) 1,000 mls @ 150 mls/hr IV ASDIRECTED [facility] Last Admin: 06/16/21 06:45 Dose: 150 mls/hr Documented by: Lactated Ringer's (Ringers, Lactated) Confirm Administered Dose 1,000 mls @ as directed .ROUTE .STK-MED ONE Stop: 06/16/21 06:44 Last Admin: 06/16/21 08:07 Dose: Not Given Documented by: Piperacillin Sod/Tazobactam (Sod 4.5 gm/ Sodium Chloride) 100 mls @ 200 mls/hr IV ONETIME ONE Stop: 06/16/21 08:31 Last Admin: 06/16/21 09:13 Dose: 200 mls/hr Documented by: Piperacillin Sod/Tazobactam (Sod 4.5 gm/ Sodium Chloride) 100 mls @ 25 mls/hr IV Q8H [facility] Stop: 06/21/21 16:01 Last Admin: 06/21/21 15:00 Dose: 25 mls/hr Documented by: Lactated Ringer's (Ringers, Lactated) 1,000 mls @ 75 mls/hr IV ASDIRECTED [facility] Last Admin: 06/16/21 22:47 Dose: 75 mls/hr Documented by: Heparin Sodium/Dextrose (Heparin 25,000 Units In D5w 500 Ml) 25,000 units in 500 mls @ 26 mls/hr IV TITRATE [facility]; Protocol Last Admin: 06/22/21 20:10 Dose: 29.6 ml/hr, 29.6 mls/hr Documented by: Insulin Glargine (Insulin Glarg,Human.Rec.Analog 100 Unit/Ml) 24 unit SUBCUT BEDTIME [facility] Insulin Glargine (Insulin Glargine,Hum.Rec.Anlog 100 Unit/Ml 3 Ml Pen) 24 unit SUBCUT BEDTIME [facility] Last Admin: 06/10/21 21:05 Dose: 24 units Documented by: Insulin Glargine (Insulin Glargine,Hum.Rec.Anlog 100 Unit/Ml 3 Ml Pen) 28 unit SUBCUT BEDTIME [facility] Last Admin: 06/11/21 21:21 Dose: 28 units Documented by: Insulin Glargine (Insulin Glargine,Hum.Rec.Anlog 100 Unit/Ml 3 Ml Pen) 32 unit SUBCUT BEDTIME [facility] Last Admin: 06/19/21 21:29 Dose: 32 unit Documented by: Insulin Human Isoph/Insulin Regular (Insulin Nph/Insulin Regular,Human 70-30 100 Units/Ml 10 Ml Vial) 0 units SUBCUT BIDAC [facility]; Protocol Last Admin: 06/10/21 02:36 Dose: Not Given Documented by: Insulin Human Lispro (Insulin Lispro 100 Unit/Ml 3 Ml Kwikpen) 0 unit SUBCUT QIDACANDBED [facility]; Protocol Last Admin: 06/10/21 12:15 Dose: Not Given Documented by: Insulin Human Regular (Insulin Regular, Human 100 Units/Ml 3 Ml Vial) 0 unit SUBCUT TIDPC [facility]; Protocol Last Admin: 06/12/21 09:12 Dose: 6 unit Documented by: Iopamidol (Iopamidol 755 Mg/Ml 100 Ml Bottle) 100 ml IVPUSH ONETIME ONE Stop: 06/09/21 23:54 Last Admin: 06/10/21 00:24 Dose: 100 ml Documented by: Iopamidol (Iopamidol 755 Mg/Ml 100 Ml Bottle) 100 ml IVPUSH ONETIME ONE Stop: 06/13/21 08:56 Last Admin: 06/13/21 09:52 Dose: 100 ml Documented by: Magnesium Hydroxide (Magnesium Hydroxide 400 Mg/5 Ml Susp 30 Ml Cup) 30 ml PO ONETIME ONE Stop: 06/13/21 06:01 Last Admin: 06/13/21 06:18 Dose: 30 ml Documented by: Magnesium Hydroxide (Magnesium Hydroxide 400 Mg/5 Ml Susp 30 Ml Cup) 30 ml PO ONETIME ONE Stop: 06/22/21 13:01 Last Admin: 06/22/21 13:04 Dose: 30 ml Documented by: Metformin HCl (Metformin 500 Mg Tab) 1,000 mg PO BIDFLALS [facility] Last Admin: 06/11/21 06:06 Dose: 1,000 mg Documented by: Morphine Sulfate (Morphine 2 Mg/Ml Syringe) 2 mg IVPUSH Q2H PRN PRN Reason: Pain (severe 7-10) Stop: 06/11/21 07:46 Non-Formulary Medication (Tresiba) 24 units SQ ONETIME ONE Stop: 06/10/21 03:46 Last Admin: 06/10/21 03:45 Dose: 24 units Documented by: Carbidopa/Levodopa 25-250 Tab Own Med 1 tab PO 0600,1100,1500,1900,2300 [facility] Last Admin: 06/11/21 05:29 Dose: 1 tab Documented by: Non-Formulary Medication (Sitagliptin Phos/Metformin Hcl [Janumet 50-1,000 Mg]) 1 tab PO BID [facility] Non-Formulary Medication (Non-Formulary Medication 1 Each) 1 each PO BID [facility] Pantoprazole Sodium (Pantoprazole 40 Mg Vial) 80 mg IVPUSH BOLUS ONE Stop: 06/16/21 07:05 Last Admin: 06/16/21 08:03 Dose: 80 mg Documented by: Sodium Chloride (Sodium Chloride 0.9% 10 Ml Syringe) 10 ml FLUSH ONETIME PRN PRN Reason: IV FLUSH Stop: 06/13/21 13:00 Trospium (Trospium 20 Mg Tab) 10 mg PO BID [facility] Last Admin: 06/10/21 21:03 Dose: 10 mg Documented by: - Exam Urinary Catheter Total Time: 1Days 9Hours General: Alert, Oriented, Cooperative HEENT: Pupils Equal, Pupils Reactive, EOMI Neck: Supple, No JVD, No Thyromegaly Lungs: Normal Respiratory Effort, Crackles Cardiovascular: Regular Rate, Regular Rhythm GI/Abdominal Exam: Normal Bowel Sounds, Soft, Non-Tender, No Organomegaly Extremities: Normal Inspection, Normal Range of Motion, Non-Tender, No Pedal Edema Skin: Warm, Dry, Intact Neurological: No New Focal Deficit, Normal Speech, Normal Tone, Strength Equal Bilateral, Reflexes Equal Bilateral, Sensation Intact Psy/Mental Status: Alert, Normal Affect, Normal Mood - Patient Data Lab Results Last 24 hrs: Laboratory Results - last 24 hr 06/22/21 06/22/21 06/23/21 Range/Units 16:05 21:19 05:04 WBC 13.08 H (4.23-9.07) K/mm3 RBC 4.45 L (4.63-6.08) M/mm3 Hgb 13.5 L (13.7-17.5) gm/dl Hct 42.4 (40.1-51.0) % MCV 95.3 H (79.0-92.2) fl MCH 30.3 (25.7-32.2) pg MCHC 31.8 L (32.2-35.5) g/dl RDW Std Deviation 47.3 H (35.1-43.9) fL Plt Count 207 (163-337) K/mm3 MPV 10.3 (9.4-12.3) fl Neut % (Auto) 86.7 H (34.0-67.9) % Lymph % (Auto) 6.9 L (21.8-53.1) % [place] % (Auto) 5.1 L (5.3-12.2) % Eos % (Auto) 0.2 L (0.8-7.0) Baso % (Auto) 0.1 (0.1-1.2) % Neut # (Auto) 11.35 H (1.78-5.38) K/mm3 Lymph # (Auto) 0.90 L (1.32-3.57) K/mm3 [place] # (Auto) 0.67 (0.30-0.82) K/mm3 Eos # (Auto) 0.02 L (0.04-0.54) K/mm3 Baso # (Auto) 0.01 (0.01-0.08) K/mm3 APTT (21.7-31.4) SECONDS Sodium (136-145) mEq/L Potassium (3.5-5.1) mEq/L Chloride (98-107) mEq/L Carbon Dioxide (21-32) mEq/L Anion Gap (5-15) BUN (7-18) mg/dL Creatinine (0.7-1.3) mg/dL Est Cr Clr Drug Dosing mL/min Estimated GFR (MDRD) (>60) mL/min BUN/Creatinine Ratio (14-18) Glucose (70-99) mg/dL POC Glucose 364 H 299 H (70-99) mg/dL Calcium (8.5-10.1) mg/dL C-Reactive Protein (<1.0) mg/dL 06/23/21 06/23/21 06/23/21 Range/Units 05:04 05:04 06:47 WBC (4.23-9.07) K/mm3 RBC (4.63-6.08) M/mm3 Hgb (13.7-17.5) gm/dl Hct (40.1-51.0) % MCV (79.0-92.2) fl MCH (25.7-32.2) pg MCHC (32.2-35.5) g/dl RDW Std Deviation (35.1-43.9) fL Plt Count (163-337) K/mm3 MPV (9.4-12.3) fl Neut % (Auto) (34.0-67.9) % Lymph % (Auto) (21.8-53.1) % [place] % (Auto) (5.3-12.2) % Eos % (Auto) (0.8-7.0) Baso % (Auto) (0.1-1.2) % Neut # (Auto) (1.78-5.38) K/mm3 Lymph # (Auto) (1.32-3.57) K/mm3 [place] # (Auto) (0.30-0.82) K/mm3 Eos # (Auto) (0.04-0.54) K/mm3 Baso # (Auto) (0.01-0.08) K/mm3 APTT 53.6 H (21.7-31.4) SECONDS Sodium 139 (136-145) mEq/L Potassium 4.6 (3.5-5.1) mEq/L Chloride 101 (98-107) mEq/L Carbon Dioxide 32 (21-32) mEq/L Anion Gap 10.6 (5-15) BUN 25 H (7-18) mg/dL Creatinine 0.9 (0.7-1.3) mg/dL Est Cr Clr Drug Dosing 86.26 mL/min Estimated GFR (MDRD) > 60 (>60) mL/min BUN/Creatinine Ratio 27.8 H (14-18) Glucose 168 H (70-99) mg/dL POC Glucose 152 H (70-99) mg/dL Calcium 8.3 L (8.5-10.1) mg/dL C-Reactive Protein 0.9 (<1.0) mg/dL 06/23/21 Range/Units 12:14 WBC (4.23-9.07) K/mm3 RBC (4.63-6.08) M/mm3 Hgb (13.7-17.5) gm/dl Hct (40.1-51.0) % MCV (79.0-92.2) fl MCH (25.7-32.2) pg MCHC (32.2-35.5) g/dl RDW Std Deviation (35.1-43.9) fL Plt Count (163-337) K/mm3 MPV (9.4-12.3) fl Neut % (Auto) (34.0-67.9) % Lymph % (Auto) (21.8-53.1) % [place] % (Auto) (5.3-12.2) % Eos % (Auto) (0.8-7.0) Baso % (Auto) (0.1-1.2) % Neut # (Auto) (1.78-5.38) K/mm3 Lymph # (Auto) (1.32-3.57) K/mm3 [place] # (Auto) (0.30-0.82) K/mm3 Eos # (Auto) (0.04-0.54) K/mm3 Baso # (Auto) (0.01-0.08) K/mm3 APTT (21.7-31.4) SECONDS Sodium (136-145) mEq/L Potassium (3.5-5.1) mEq/L Chloride (98-107) mEq/L Carbon Dioxide (21-32) mEq/L Anion Gap (5-15) BUN (7-18) mg/dL Creatinine (0.7-1.3) mg/dL Est Cr Clr Drug Dosing mL/min Estimated GFR (MDRD) (>60) mL/min BUN/Creatinine Ratio (14-18) Glucose (70-99) mg/dL POC Glucose 238 H (70-99) mg/dL Calcium (8.5-10.1) mg/dL C-Reactive Protein (<1.0) mg/dL Result Diagrams: 06/23/21 05:04 06/23/21 05:04 Sepsis Event Note - Evaluation Sepsis Screening Result: No Definite Risk - Focused Exam Vital Signs: Vital Signs Pulse Ox 06/23/21 08:11 91 L - Problem List Review Problem List Initiated/Reviewed/Updated: Yes - My Orders Last 24 Hours: My Active Orders 06/23/21 09:00 Enoxaparin [Lovenox] 100 mg SUBCUT Q12H - Assessment Assessment:: 06/22/2021 71-year-old male who was admitted to the floor due to Covid pneumonia. Patient did complete remdesivir treatment and is currently receiving dexamethasone. He was on oxygen at 4 L per nasal cannula this morning however respiratory therapy did have to increase him to 5 L. Chest x-ray was completed today.Radiologist impression portable view of the chest comparison to prior chest x-ray of 06/20/2021: Diffuse increased density is seen within the right chest. Lesser density within the left chest is seen. Heart size is normal. Upper mediastinum is stable. No acute change within the osseous structures is seen. Impression: 1. Worsening density within both sides of the chest, greater on the right side. Findings are compatible with worsening Covid pneumonia. However, patient denies worsening shortness of breath. Lung sounds continue to have crackles noted bilaterally. Patient continues on a heparin drip for DVT prophylaxis as throughout his stay here he did have a noted GI bleed. Coffee-ground emesis was noted and is questionable whether or not the patient aspirated. Patient did receive IV Zosyn to treat this and this course has been completed. He remains afebrile and there are no signs of worsening infection. Labs today revealWBC of 10.39, hemoglobin 13.1, hematocrit 41.6, platelet count 199, PTT 56.2, D-dimer 5.22, sodium 140, potassium 4.3, carbon dioxide 34, anion gap 8.3, BUN 24, creatinine 0.9, GFR greater than 60, ferritin 1931, C-reactive protein 1.4. Elevation in WBC likely due to dexamethasone for treatment of Covid. Patient continues to receive sliding scale insulin and 4 times daily Accu-Cheks. Unknown length of stay due to the severity of symptoms. - Plan Plan:: Assessment: Acute hypoxic respiratory failure secondary to Covid 19 pneumonitis Acute COVID-19 Diabetes mellitus. 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 Plan: Remains status quo. Continue Covid protocol and conventional therapies -baricitinib 4 mg daily, dexamethasone 6 mg daily, Lovenox 100 mg twice daily RT consult with supplemental oxygen with titration as necessary. Lovenox 100mg bid for hypercoagulable prophylaxis, meanwhile being mindful of any new GI bleeding. Glucose control with hyperglycemia protocol with expected higher sugars due to steroids. CODE STATUS: Full code. DVT prophylaxis; systemic anticoagulation with heparin infusion. CT greater than 96 hours because of the slow response to treatment
[2021-06-23] MEDS: Melatonin 3 MG Tab PO SCH (20:38)
[2021-06-23] MEDS: Tamsulosin 0.4 MG Cap.ER PO SCH (20:38)
[2021-06-23] MEDS: Temazepam 15 MG Cap PO PRN (20:39)
[2021-06-23] MEDS: Insulin Glargine,Hum.Rec.Anlog 100 UNIT/ML 3 ML Pen SUBCUT SCH (20:41)
[2021-06-24] MEDS: Acetaminophen 325 MG Tab PO SCH ×4 (00:03→21:13)
[2021-06-24] MEDS: Insulin Regular, Human 100 Units/ML 3 ML Vial SUBCUT SCH ×5 (00:06→21:08)
[2021-06-24] MEDS: LEVODOPA PO SCH ×5 (06:13→23:00)
[2021-06-24] MEDS: CARBIDOPA PO SCH ×5 (06:13→23:00)
[2021-06-24] MEDS: Levothyroxine 50 MCG Tab PO SCH (06:15)
[2021-06-24] MEDS: Enoxaparin 100 MG/1 ML Syringe SUBCUT SCH ×2 (08:09→21:10)
[2021-06-24] MEDS: Zinc Sulfate 220 MG Cap PO SCH (08:09)
[2021-06-24] MEDS: Ascorbic Acid 500 MG Tab PO SCH (08:10)
[2021-06-24] MEDS: Dexamethasone 4 MG Tab PO SCH (08:10)
[2021-06-24] MEDS: Finasteride 5 MG Tab PO SCH (08:11)
[2021-06-24] MEDS: Trospium 20 MG Tab PO SCH ×2 (08:11→21:11)
[2021-06-24] MEDS: amLODIPine 2.5 MG Tab PO SCH (09:44)
--- NOTE | 2021-06-24 11:19 | PCM.PN ---
- General Info Date of Service: 06/24/21 Admission Dx/Problem (Free Text): Admission Diagnosis/Problem Admission Diagnosis/Problem acute respiratory failure due to COVID-19 pneumonia. Subjective Update: Patient condition seems to be stable. Still has mild cough. Does not have any new complaints. Denies nausea vomiting or diarrhea He is now on 4-6 L BP 154/93. Will add amlodipine 2.5mg daily - Review of Systems Systems Review Comment:: Positive for shortness of breath. All other systems were reviewed and negative. - Patient Data Vitals - Most Recent: Last Vital Signs Temp 36.8 C 06/24/21 03:24 Pulse 54 L 06/24/21 03:24 Resp 14 06/24/21 03:24 BP 151/78 H 06/24/21 09:44 Pulse Ox 93 L 06/24/21 08:18 Weight - Most Recent: 106.095 kg I&O - Last 24 Hours: Intake & Output 06/23/21 06/24/21 06/24/21 22:59 06:59 14:59 Intake Total 948 400 Output Total 100 Balance 948 300 Lab Results Last 24 Hours: Laboratory Results - last 24 hr 06/23/21 06/23/21 06/23/21 Range/Units 12:14 16:18 20:30 WBC (4.23-9.07) K/mm3 RBC (4.63-6.08) M/mm3 Hgb (13.7-17.5) gm/dl Hct (40.1-51.0) % MCV (79.0-92.2) fl MCH (25.7-32.2) pg MCHC (32.2-35.5) g/dl RDW Std Deviation (35.1-43.9) fL Plt Count (163-337) K/mm3 MPV (9.4-12.3) fl Neut % (Auto) (34.0-67.9) % Lymph % (Auto) (21.8-53.1) % [place] % (Auto) (5.3-12.2) % Eos % (Auto) (0.8-7.0) Baso % (Auto) (0.1-1.2) % Neut # (Auto) (1.78-5.38) K/mm3 Lymph # (Auto) (1.32-3.57) K/mm3 [place] # (Auto) (0.30-0.82) K/mm3 Eos # (Auto) (0.04-0.54) K/mm3 Baso # (Auto) (0.01-0.08) K/mm3 Sodium (136-145) mEq/L Potassium (3.5-5.1) mEq/L Chloride (98-107) mEq/L Carbon Dioxide (21-32) mEq/L Anion Gap (5-15) BUN (7-18) mg/dL Creatinine (0.7-1.3) mg/dL Est Cr Clr Drug Dosing mL/min Estimated GFR (MDRD) (>60) mL/min BUN/Creatinine Ratio (14-18) Glucose (70-99) mg/dL POC Glucose 238 H 355 H 301 H (70-99) mg/dL Calcium (8.5-10.1) mg/dL Total Bilirubin (0.2-1.0) mg/dL AST (15-37) U/L ALT (16-63) U/L Alkaline Phosphatase (46-116) U/L C-Reactive Protein (<1.0) mg/dL Total Protein (6.4-8.2) g/dl Albumin (3.4-5.0) g/dl Globulin gm/dL Albumin/Globulin Ratio (1-2) 06/24/21 06/24/21 06/24/21 Range/Units 06:12 07:33 07:33 WBC 16.02 H (4.23-9.07) K/mm3 RBC 4.52 L (4.63-6.08) M/mm3 Hgb 13.9 (13.7-17.5) gm/dl Hct 43.4 (40.1-51.0) % MCV 96.0 H (79.0-92.2) fl MCH 30.8 (25.7-32.2) pg MCHC 32.0 L (32.2-35.5) g/dl RDW Std Deviation 47.8 H (35.1-43.9) fL Plt Count 237 (163-337) K/mm3 MPV 10.3 (9.4-12.3) fl Neut % (Auto) 87.9 H (34.0-67.9) % Lymph % (Auto) 5.8 L (21.8-53.1) % [place] % (Auto) 5.4 (5.3-12.2) % Eos % (Auto) 0.2 L (0.8-7.0) Baso % (Auto) 0.0 L (0.1-1.2) % Neut # (Auto) 14.06 H (1.78-5.38) K/mm3 Lymph # (Auto) 0.93 L (1.32-3.57) K/mm3 [place] # (Auto) 0.87 H (0.30-0.82) K/mm3 Eos # (Auto) 0.04 (0.04-0.54) K/mm3 Baso # (Auto) 0.00 L (0.01-0.08) K/mm3 Sodium 138 (136-145) mEq/L Potassium 4.7 (3.5-5.1) mEq/L Chloride 101 (98-107) mEq/L Carbon Dioxide 33 H (21-32) mEq/L Anion Gap 8.7 (5-15) BUN 29 H (7-18) mg/dL Creatinine 0.8 (0.7-1.3) mg/dL Est Cr Clr Drug Dosing 97.04 mL/min Estimated GFR (MDRD) > 60 (>60) mL/min BUN/Creatinine Ratio 36.3 H (14-18) Glucose 140 H (70-99) mg/dL POC Glucose 132 H (70-99) mg/dL Calcium 8.8 (8.5-10.1) mg/dL Total Bilirubin 0.7 (0.2-1.0) mg/dL AST 12 L (15-37) U/L ALT 9 L (16-63) U/L Alkaline Phosphatase 46 (46-116) U/L C-Reactive Protein 0.3 (<1.0) mg/dL Total Protein 6.4 (6.4-8.2) g/dl Albumin 2.4 L (3.4-5.0) g/dl Globulin 4.0 gm/dL Albumin/Globulin Ratio 0.6 L (1-2) Med Orders - Current: Current Medications Acetaminophen (Acetaminophen 325 Mg Tab) 650 mg PO Q8H [facility] Last Admin: 06/24/21 06:14 Dose: 650 mg Documented by: Al Hydroxide/Mg Hydroxide (Aluminum Hydroxide/Magnesium Hydroxide/Simethicone Susp 30 Ml Cup) 30 ml PO Q4H PRN PRN Reason: Heartburn Last Admin: 06/14/21 21:37 Dose: 30 ml Documented by: Albuterol (Albuterol 6.7 Gm Inhaler) 0 gm INH QID PRN PRN Reason: SOB/Wheezing Last Admin: 06/23/21 08:11 Dose: 2 puff Documented by: Albuterol/Ipratropium (Albuterol/Ipratropium 3.0-0.5 Mg/3 Ml Neb Soln) 3 ml NEB Q4H PRN PRN Reason: Shortness Of Breath/wheezing Last Admin: 06/22/21 08:33 Dose: 3 ml Documented by: Alogliptin Benzoate (Alogliptin 12.5 Mg Tab) 12.5 mg PO BIDMEALS [facility] Last Admin: 06/24/21 06:13 Dose: 12.5 mg Documented by: Amlodipine Besylate (Amlodipine 2.5 Mg Tab) 2.5 mg PO DAILY [facility] Last Admin: 06/24/21 09:44 Dose: 2.5 mg Documented by: Ascorbic Acid (Ascorbic Acid 500 Mg Tab) 500 mg PO DAILY [facility] Last Admin: 06/24/21 08:10 Dose: 500 mg Documented by: Baricitinib (Baricitinib 2 Mg Tab) 4 mg PO DAILY [facility] Stop: 06/26/21 09:01 Last Admin: 06/24/21 08:12 Dose: 4 mg Documented by: Dexamethasone (Dexamethasone 4 Mg Tab) 6 mg PO DAILY [facility] Last Admin: 06/24/21 08:10 Dose: 6 mg Documented by: Docusate Sodium (Docusate Sodium 100 Mg Cap) 100 mg PO BID PRN PRN Reason: Constipation Last Admin: 06/14/21 12:07 Dose: 100 mg Documented by: Enoxaparin Sodium (Enoxaparin 100 Mg/1 Ml Syringe) 100 mg SUBCUT Q12H [facility] Last Admin: 06/24/21 08:09 Dose: 100 mg Documented by: Finasteride (Finasteride 5 Mg Tab) 5 mg PO DAILY [facility] Last Admin: 06/24/21 08:11 Dose: 5 mg Documented by: Guaifenesin/Phenylephrine HCl (Guaifenesin/Dextromethorphan 100-10 Mg/5 Ml Soln 5 Ml Cup) 10 ml PO Q6H PRN PRN Reason: Cough Insulin Glargine (Insulin Glargine,Hum.Rec.Anlog 100 Unit/Ml 3 Ml Pen) 28 unit SUBCUT BEDTIME [facility] Last Admin: 06/23/21 20:41 Dose: 28 units Documented by: Insulin Human Regular (Insulin Regular, Human 100 Units/Ml 3 Ml Vial) 0 unit SUBCUT QIDACANDBED [facility]; Protocol Last Admin: 06/24/21 06:15 Dose: Not Given Documented by: Levothyroxine Sodium (Levothyroxine 50 Mcg Tab) 50 mcg PO ACBREAKFAST [facility] Last Admin: 06/24/21 06:15 Dose: 50 mcg Documented by: Melatonin (Melatonin 3 Mg Tab) 6 mg PO BEDTIME [facility] Last Admin: 06/23/21 20:38 Dose: 6 mg Documented by: Carbidopa/Levodopa 25-250 Tab Own Med 1 tab PO 0600,1100,1500,1900,2300 [facility] Last Admin: 06/24/21 06:13 Dose: 1 tab Documented by: Ondansetron HCl (Ondansetron 4 Mg Tab.Dis) 4 mg PO Q4H PRN PRN Reason: nausea, able to take PO Oxycodone HCl (Oxycodone 5 Mg Tab) 5 mg PO Q4H PRN PRN Reason: Pain (moderate 4-6) Last Admin: 06/23/21 04:29 Dose: 5 mg Documented by: Sodium Chloride (Sodium Chloride 0.9% 10 Ml Syringe) 10 ml FLUSH ASDIRECTED PRN PRN Reason: Keep Vein Open Last Admin: 06/10/21 00:24 Dose: 10 ml Documented by: Tamsulosin HCl (Tamsulosin 0.4 Mg Cap.Er) 0.4 mg PO BEDTIME [facility] Last Admin: 06/23/21 20:38 Dose: 0.4 mg Documented by: Temazepam (Temazepam 15 Mg Cap) 15 mg PO BEDTIME PRN PRN Reason: Sleep Last Admin: 06/23/21 20:39 Dose: 15 mg Documented by: Trolamine Salicylate (Trolamine Salicylate/Aloe Vera 10% Crm 85 Gm Tube) 1 gm T OP Q2H PRN PRN Reason: Pain (moderate 4-6) Last Admin: 06/22/21 11:23 Dose: 1 applic Documented by: Trospium (Trospium 20 Mg Tab) 20 mg PO BID [facility] Last Admin: 06/24/21 08:11 Dose: 20 mg Documented by: Zinc Sulfate (Zinc Sulfate 220 Mg Cap) 220 mg PO DAILY [facility] Last Admin: 06/24/21 08:09 Dose: 220 mg Documented by: Discontinued Medications Acetaminophen (Acetaminophen 325 Mg Tab) 975 mg PO NOW ONE Stop: 06/09/21 21:16 Last Admin: 06/09/21 21:41 Dose: 350 mg Documented by: Acetaminophen (Acetaminophen 650 Mg Supp) 650 mg RECTAL NOW ONE Stop: 06/09/21 21:52 Last Admin: 06/09/21 22:30 Dose: 650 mg Documented by: Acetaminophen (Acetaminophen 325 Mg Tab) 650 mg PO Q4H PRN PRN Reason: Pain (Mild 1-3)/fever Last Admin: 06/12/21 08:10 Dose: 650 mg Documented by: Acetaminophen (Acetaminophen 325 Mg Tab) 975 mg PO Q8HR [facility] Acetaminophen (Acetaminophen 325 Mg Tab) 650 mg PO Q8H [facility] Last Admin: 06/12/21 11:51 Dose: Not Given Documented by: Acetaminophen (Acetaminophen 325 Mg Tab) 650 mg PO Q8H [facility] Last Admin: 06/16/21 02:16 Dose: Not Given Documented by: Carbidopa/Levodopa (Carbidopa/Levodopa 25-100 Mg Tab) 1 tab PO QID [facility] Last Admin: 06/10/21 16:54 Dose: 1 tab Documented by: Dexamethasone (Dexamethasone 4 Mg/Ml 5 Ml Mdv) 6 mg IV ONETIME ONE Stop: 06/10/21 00:53 Last Admin: 06/10/21 01:31 Dose: 6 mg Documented by: Dexamethasone (Dexamethasone 4 Mg Tab) 6 mg PO DAILY [facility] Stop: 06/18/21 09:01 Last Admin: 06/12/21 08:55 Dose: 6 mg Documented by: Dexamethasone (Dexamethasone 4 Mg Tab) 6 mg PO BID [facility] Last Admin: 06/19/21 09:25 Dose: 6 mg Documented by: Enoxaparin Sodium (Enoxaparin 40 Mg/0.4 Ml Syringe) 40 mg SUBCUT DAILY [facility] Last Admin: 06/14/21 10:24 Dose: 40 mg Documented by: Enoxaparin Sodium (Enoxaparin 100 Mg/1 Ml Syringe) 100 mg SUBCUT Q12H [facility] Last Admin: 06/15/21 22:00 Dose: 100 mg Documented by: Glimepiride (Glimepiride 2 Mg Tab) 4 mg PO DAILY [facility] Last Admin: 06/10/21 09:51 Dose: 4 mg Documented by: Glimepiride (Glimepiride 2 Mg Tab) 2 mg PO WITHBREAKFAST [facility] Last Admin: 06/11/21 06:05 Dose: 2 mg Documented by: Sodium Chloride (Normal Saline) 1,000 mls @ 250 mls/hr IV ONETIME ONE Stop: 06/10/21 01:14 Last Infusion: 06/09/21 21:41 Dose: 250 mls/hr Documented by: Sodium Chloride (Normal Saline) Confirm Administered Dose 1,000 mls @ as directed .ROUTE .STK-MED ONE Stop: 06/09/21 21:19 Last Admin: 06/10/21 01:11 Dose: Not Given Documented by: Remdesivir 200 mg/ Sodium (Chloride) 250 mls @ 250 mls/hr IV ONETIME ONE Stop: 06/10/21 00:53 Last Admin: 06/10/21 01:47 Dose: 250 mls/hr Documented by: Remdesivir 100 mg/ Sodium (Chloride) 100 mls @ 100 mls/hr IV Q24H [facility] Stop: 06/13/21 21:59 Last Admin: 06/13/21 21:19 Dose: 100 mls/hr Documented by: Ceftriaxone Sodium 1 gm/ (Sodium Chloride) 100 mls @ 200 mls/hr IV Q24H [facility] Last Admin: 06/11/21 09:01 Dose: 200 mls/hr Documented by: Ceftriaxone Sodium 2 gm/ (Sodium Chloride) 100 mls @ 200 mls/hr IV Q24H [facility] Stop: 06/16/21 09:29 Last Admin: 06/15/21 09:19 Dose: 200 mls/hr Documented by: Azithromycin 500 mg/ Sodium (Chloride) 250 mls @ 250 mls/hr IV Q24H [facility] Stop: 06/14/21 08:59 Last Admin: 06/14/21 08:49 Dose: 250 mls/hr Documented by: Sodium Chloride (Normal Saline) 100 mls @ 75 mls/hr IV ASDIRECTED [facility] Stop: 06/13/21 13:00 Last Admin: 06/13/21 09:52 Dose: 75 mls/hr Documented by: Lactated Ringer's (Ringers, Lactated) 1,000 mls @ 150 mls/hr IV ASDIRECTED [facility] Last Admin: 06/16/21 06:45 Dose: 150 mls/hr Documented by: Lactated Ringer's (Ringers, Lactated) Confirm Administered Dose 1,000 mls @ as directed .ROUTE .STK-MED ONE Stop: 06/16/21 06:44 Last Admin: 06/16/21 08:07 Dose: Not Given Documented by: Piperacillin Sod/Tazobactam (Sod 4.5 gm/ Sodium Chloride) 100 mls @ 200 mls/hr IV ONETIME ONE Stop: 06/16/21 08:31 Last Admin: 06/16/21 09:13 Dose: 200 mls/hr Documented by: Piperacillin Sod/Tazobactam (Sod 4.5 gm/ Sodium Chloride) 100 mls @ 25 mls/hr IV Q8H [facility] Stop: 06/21/21 16:01 Last Admin: 06/21/21 15:00 Dose: 25 mls/hr Documented by: Lactated Ringer's (Ringers, Lactated) 1,000 mls @ 75 mls/hr IV ASDIRECTED [facility] Last Admin: 06/16/21 22:47 Dose: 75 mls/hr Documented by: Heparin Sodium/Dextrose (Heparin 25,000 Units In D5w 500 Ml) 25,000 units in 500 mls @ 26 mls/hr IV TITRATE [facility]; Protocol Last Admin: 06/22/21 20:10 Dose: 29.6 ml/hr, 29.6 mls/hr Documented by: Insulin Glargine (Insulin Glarg,Human.Rec.Analog 100 Unit/Ml) 24 unit SUBCUT BEDTIME [facility] Insulin Glargine (Insulin Glargine,Hum.Rec.Anlog 100 Unit/Ml 3 Ml Pen) 24 unit SUBCUT BEDTIME [facility] Last Admin: 06/10/21 21:05 Dose: 24 units Documented by: Insulin Glargine (Insulin Glargine,Hum.Rec.Anlog 100 Unit/Ml 3 Ml Pen) 28 unit SUBCUT BEDTIME [facility] Last Admin: 06/11/21 21:21 Dose: 28 units Documented by: Insulin Glargine (Insulin Glargine,Hum.Rec.Anlog 100 Unit/Ml 3 Ml Pen) 32 unit SUBCUT BEDTIME [facility] Last Admin: 06/19/21 21:29 Dose: 32 unit Documented by: Insulin Human Isoph/Insulin Regular (Insulin Nph/Insulin Regular,Human 70-30 100 Units/Ml 10 Ml Vial) 0 units SUBCUT BIDAC [facility]; Protocol Last Admin: 06/10/21 02:36 Dose: Not Given Documented by: Insulin Human Lispro (Insulin Lispro 100 Unit/Ml 3 Ml Kwikpen) 0 unit SUBCUT QIDACANDBED [facility]; Protocol Last Admin: 06/10/21 12:15 Dose: Not Given Documented by: Insulin Human Regular (Insulin Regular, Human 100 Units/Ml 3 Ml Vial) 0 unit SUBCUT TIDPC [facility]; Protocol Last Admin: 06/12/21 09:12 Dose: 6 unit Documented by: Iopamidol (Iopamidol 755 Mg/Ml 100 Ml Bottle) 100 ml IVPUSH ONETIME ONE Stop: 06/09/21 23:54 Last Admin: 06/10/21 00:24 Dose: 100 ml Documented by: Iopamidol (Iopamidol 755 Mg/Ml 100 Ml Bottle) 100 ml IVPUSH ONETIME ONE Stop: 06/13/21 08:56 Last Admin: 06/13/21 09:52 Dose: 100 ml Documented by: Magnesium Hydroxide (Magnesium Hydroxide 400 Mg/5 Ml Susp 30 Ml Cup) 30 ml PO ONETIME ONE Stop: 06/13/21 06:01 Last Admin: 06/13/21 06:18 Dose: 30 ml Documented by: Magnesium Hydroxide (Magnesium Hydroxide 400 Mg/5 Ml Susp 30 Ml Cup) 30 ml PO ONETIME ONE Stop: 06/22/21 13:01 Last Admin: 06/22/21 13:04 Dose: 30 ml Documented by: Metformin HCl ([facility] 500 Mg Tab) [facility] Last Admin: 06/11/21 06:06 Dose: 1,000 mg Documented by: Morphine Sulfate (Morphine 2 Mg/Ml Syringe) 2 mg IVPUSH Q2H PRN PRN Reason: Pain (severe 7-10) Stop: 06/11/21 07:46 Non-Formulary Medication (Tresiba) 24 units SQ ONETIME ONE Stop: 06/10/21 03:46 Last Admin: 06/10/21 03:45 Dose: 24 units Documented by: Carbidopa/Levodopa 25-250 Tab Own Med 1 tab PO 0600,1100,1500,1900,2300 [facility] Last Admin: 06/11/21 05:29 Dose: 1 tab Documented by: Non-Formulary Medication (Sitagliptin Phos/Metformin Hcl [Janumet 50-1,000 Mg]) 1 tab PO BID [facility] Non-Formulary Medication (Non-Formulary Medication 1 Each) 1 each PO BID [facility] Pantoprazole Sodium (Pantoprazole 40 Mg Vial) 80 mg IVPUSH BOLUS ONE Stop: 06/16/21 07:05 Last Admin: 06/16/21 08:03 Dose: 80 mg Documented by: Sodium Chloride (Sodium Chloride 0.9% 10 Ml Syringe) 10 ml FLUSH ONETIME PRN PRN Reason: IV FLUSH Stop: 06/13/21 13:00 Trospium (Trospium 20 Mg Tab) 10 mg PO BID [facility] Last Admin: 06/10/21 21:03 Dose: 10 mg Documented by: - Exam Urinary Catheter Total Time: 1Days 9Hours Physical Findings Comments:: General: Alert, Oriented, Cooperative HEENT: Pupils Equal, Pupils Reactive, EOMI Neck: Supple, No JVD, No Thyromegaly Lungs: Normal Respiratory Effort, Crackles Cardiovascular: Regular Rate, Regular Rhythm GI/Abdominal Exam: Normal Bowel Sounds, Soft, Non-Tender, No Organomegaly Extremities: Normal Inspection, Normal Range of Motion, Non-Tender, No Pedal Edema Skin: Warm, Dry, Intact Neurological: No New Focal Deficit, Normal Speech, Normal Tone, Strength Equal Bilateral, Reflexes Equal Bilateral, Sensation Intact Psy/Mental Status: Alert, Normal Affect, Normal Mood - Patient Data Lab Results Last 24 hrs: Laboratory Results - last 24 hr 06/23/21 06/23/21 06/23/21 Range/Units 12:14 16:18 20:30 WBC (4.23-9.07) K/mm3 RBC (4.63-6.08) M/mm3 Hgb (13.7-17.5) gm/dl Hct (40.1-51.0) % MCV (79.0-92.2) fl MCH (25.7-32.2) pg MCHC (32.2-35.5) g/dl RDW Std Deviation (35.1-43.9) fL Plt Count (163-337) K/mm3 MPV (9.4-12.3) fl Neut % (Auto) (34.0-67.9) % Lymph % (Auto) (21.8-53.1) % [place] % (Auto) (5.3-12.2) % Eos % (Auto) (0.8-7.0) Baso % (Auto) (0.1-1.2) % Neut # (Auto) (1.78-5.38) K/mm3 Lymph # (Auto) (1.32-3.57) K/mm3 [place] # (Auto) (0.30-0.82) K/mm3 Eos # (Auto) (0.04-0.54) K/mm3 Baso # (Auto) (0.01-0.08) K/mm3 Sodium (136-145) mEq/L Potassium (3.5-5.1) mEq/L Chloride (98-107) mEq/L Carbon Dioxide (21-32) mEq/L Anion Gap (5-15) BUN (7-18) mg/dL Creatinine (0.7-1.3) mg/dL Est Cr Clr Drug Dosing mL/min Estimated GFR (MDRD) (>60) mL/min BUN/Creatinine Ratio (14-18) Glucose (70-99) mg/dL POC Glucose 238 H 355 H 301 H (70-99) mg/dL Calcium (8.5-10.1) mg/dL Total Bilirubin (0.2-1.0) mg/dL AST (15-37) U/L ALT (16-63) U/L Alkaline Phosphatase (46-116) U/L C-Reactive Protein (<1.0) mg/dL Total Protein (6.4-8.2) g/dl Albumin (3.4-5.0) g/dl Globulin gm/dL Albumin/Globulin Ratio (1-2) 06/24/21 06/24/21 06/24/21 Range/Units 06:12 07:33 07:33 WBC 16.02 H (4.23-9.07) K/mm3 RBC 4.52 L (4.63-6.08) M/mm3 Hgb 13.9 (13.7-17.5) gm/dl Hct 43.4 (40.1-51.0) % MCV 96.0 H (79.0-92.2) fl MCH 30.8 (25.7-32.2) pg MCHC 32.0 L (32.2-35.5) g/dl RDW Std Deviation 47.8 H (35.1-43.9) fL Plt Count 237 (163-337) K/mm3 MPV 10.3 (9.4-12.3) fl Neut % (Auto) 87.9 H (34.0-67.9) % Lymph % (Auto) 5.8 L (21.8-53.1) % [place] % (Auto) 5.4 (5.3-12.2) % Eos % (Auto) 0.2 L (0.8-7.0) Baso % (Auto) 0.0 L (0.1-1.2) % Neut # (Auto) 14.06 H (1.78-5.38) K/mm3 Lymph # (Auto) 0.93 L (1.32-3.57) K/mm3 [place] # (Auto) 0.87 H (0.30-0.82) K/mm3 Eos # (Auto) 0.04 (0.04-0.54) K/mm3 Baso # (Auto) 0.00 L (0.01-0.08) K/mm3 Sodium 138 (136-145) mEq/L Potassium 4.7 (3.5-5.1) mEq/L Chloride 101 (98-107) mEq/L Carbon Dioxide 33 H (21-32) mEq/L Anion Gap 8.7 (5-15) BUN 29 H (7-18) mg/dL Creatinine 0.8 (0.7-1.3) mg/dL Est Cr Clr Drug Dosing 97.04 mL/min Estimated GFR (MDRD) > 60 (>60) mL/min BUN/Creatinine Ratio 36.3 H (14-18) Glucose 140 H (70-99) mg/dL POC Glucose 132 H (70-99) mg/dL Calcium 8.8 (8.5-10.1) mg/dL Total Bilirubin 0.7 (0.2-1.0) mg/dL AST 12 L (15-37) U/L ALT 9 L (16-63) U/L Alkaline Phosphatase 46 (46-116) U/L C-Reactive Protein 0.3 (<1.0) mg/dL Total Protein 6.4 (6.4-8.2) g/dl Albumin 2.4 L (3.4-5.0) g/dl Globulin 4.0 gm/dL Albumin/Globulin Ratio 0.6 L (1-2) Result Diagrams: 06/24/21 07:33 06/24/21 07:33 Sepsis Event Note - Evaluation Sepsis Screening Result: No Definite Risk - Focused Exam Vital Signs: Vital Signs Temp Pulse Resp BP Pulse Ox 06/24/21 09:44 151/78 H 06/24/21 08:18 93 L 06/24/21 03:24 36.8 C 54 L 14 154/93 H 95 - Problem List Review Problem List Initiated/Reviewed/Updated: Yes - My Orders Last 24 Hours: My Active Orders 06/24/21 09:00 amLODIPine [Norvasc] 2.5 mg PO DAILY 06/25/21 05:00 CBC WITH AUTO DIFF [HEME] DAILY COMPREHENSIVE METABOLIC PN,CMP [CHEM] DAILY CRP [C-REACTIVE PROTEIN] [CHEM] DAILY 06/26/21 05:00 CBC WITH AUTO DIFF [HEME] DAILY COMPREHENSIVE METABOLIC PN,CMP [CHEM] DAILY CRP [C-REACTIVE PROTEIN] [CHEM] DAILY 06/27/21 05:00 CBC WITH AUTO DIFF [HEME] DAILY COMPREHENSIVE METABOLIC PN,CMP [CHEM] DAILY 06/28/21 05:00 CBC WITH AUTO DIFF [HEME] DAILY COMPREHENSIVE METABOLIC PN,CMP [CHEM] DAILY - Assessment Assessment:: 06/22/2021 71-year-old male who was admitted to the floor due to Covid pneumonia. Patient did complete remdesivir treatment and is currently receiving dexamethasone. He was on oxygen at 4 L per nasal cannula this morning however respiratory therapy did have to increase him to 5 L. Chest x-ray was completed today.Radiologist impression portable view of the chest comparison to prior chest x-ray of 021: Diffuse increased density is seen within the right chest. Lesser density within the left chest is seen. Heart size is normal. Upper mediastinum is stable. No acute change within the osseous structures is seen. Impression: 1. Worsening density within both sides of the chest, greater on the right side. Findings are compatible with worsening Covid pneumonia. However, patient denies worsening shortness of breath. Lung sounds continue to have crackles noted bilaterally. Patient continues on a heparin drip for DVT prophylaxis as throughout his stay here he did have a noted GI bleed. Coffee-ground emesis was noted and is questionable whether or not the patient aspirated. Patient did receive IV Zosyn to treat this and this course has been completed. He remains afebrile and there are no signs of worsening infection. Labs today revealWBC of 10.39, hemoglobin 13.1, hematocrit 41.6, platelet count 199, PTT 56.2, D-dimer 5.22, sodium 140, potassium 4.3, carbon dioxide 34, anion gap 8.3, BUN 24, creatinine 0.9, GFR greater than 60, ferritin 1931, C-reactive protein 1.4. Elevation in WBC likely due to dexamethasone for treatment of Covid. Patient continues to receive sliding scale insulin and 4 times daily Accu-Cheks. Unknown length of stay due to the severity of symptoms. - Plan Plan:: Assessment: Acute hypoxic respiratory failure secondary to Covid 19 pneumonitis Acute COVID-19 Diabetes mellitus. 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 Plan: Remains status quo. Continue Covid protocol and conventional therapies - baricitinib 4 mg daily, dexamethasone 6 mg daily, Lovenox 100 mg twice daily RT consult with supplemental oxygen with titration as necessary. Lovenox 100mg bid for hypercoagulable prophylaxis, meanwhile being mindful of any new GI bleeding. Glucose control with hyperglycemia protocol with expected higher sugars due to steroids. CODE STATUS: Full code. DVT prophylaxis: lovenox LOS greater than 96 hours because of the slow response to treatment
[2021-06-24] MEDS: Insulin Glargine,Hum.Rec.Anlog 100 UNIT/ML 3 ML Pen SUBCUT SCH (21:09)
[2021-06-24] MEDS: Tamsulosin 0.4 MG Cap.ER PO SCH (21:11)
[2021-06-24] MEDS: Temazepam 15 MG Cap PO PRN (21:11)
[2021-06-24] MEDS: Melatonin 3 MG Tab PO SCH (21:11)
[2021-06-25] MEDS: Acetaminophen 325 MG Tab PO SCH ×3 (06:31→22:18)
[2021-06-25] MEDS: CARBIDOPA PO SCH ×5 (06:32→22:18)
[2021-06-25] MEDS: LEVODOPA PO SCH ×5 (06:32→22:18)
[2021-06-25] MEDS: Levothyroxine 50 MCG Tab PO SCH (06:32)
[2021-06-25] MEDS: Albuterol 6.7 GM Inhaler INH PRN ×2 (08:24→20:31)
[2021-06-25] MEDS: Enoxaparin 100 MG/1 ML Syringe SUBCUT SCH ×2 (09:07→22:18)
[2021-06-25] MEDS: Dexamethasone 4 MG Tab PO SCH (09:08)
[2021-06-25] MEDS: Trospium 20 MG Tab PO SCH ×2 (09:08→22:18)
[2021-06-25] MEDS: Finasteride 5 MG Tab PO SCH (09:08)
[2021-06-25] MEDS: Insulin Regular, Human 100 Units/ML 3 ML Vial SUBCUT SCH ×2 (09:08→11:30)
[2021-06-25] MEDS: Ascorbic Acid 500 MG Tab PO SCH (09:08)
[2021-06-25] MEDS: Zinc Sulfate 220 MG Cap PO SCH (09:08)
[2021-06-25] MEDS: amLODIPine 2.5 MG Tab PO SCH (09:21)
--- NOTE | 2021-06-25 09:43 | CR ---
Chest: Portable view of the chest was obtained. Comparison: Prior chest x-ray of 06/22/21. Right lung shows significant improvement from prior exam. Parenchymal densities have not yet returned to baseline. Heart size is normal. Slight tortuosity of the thoracic aorta is seen. Bony structures show nothing acute. Degenerative spurring is noted within the spine. Impression: 1. Mild improvement within the chest from prior chest x-ray. Parenchymal densities have not yet returned to baseline. 2. Other stable findings as noted above. Diagnostic code #3
--- NOTE | 2021-06-25 13:56 | PCM.PN ---
- General Info Date of Service: 06/25/21 Admission Dx/Problem (Free Text): Admission Diagnosis/Problem Admission Diagnosis/Problem acute respiratory failure due to COVID-19 pneumonia. Subjective Update: Yehuda was seen on rounds this morning and states his breathing does seem to feel slightly better however he does complain of dizziness when standing or attempting to ambulate. Functional Status: Reports: Pain Controlled, Tolerating Diet, Ambulating (With PT), Urinating (Incontinent), Incentive Spirometry - Review of Systems General: Reports: Other (Dizziness with standing or ambulation) HEENT: Reports: No Symptoms Pulmonary: Reports: Shortness of Breath. Denies: Cough, Sputum, Wheezing Cardiovascular: Reports: No Symptoms Gastrointestinal: Reports: No Symptoms Genitourinary: Reports: Incontinence (Chronic) Musculoskeletal: Reports: No Symptoms Skin: Reports: No Symptoms Neurological: Reports: No Symptoms Psychiatric: Reports: No Symptoms - Patient Data Vitals - Most Recent: Last Vital Signs Temp 98.2 F 06/25/21 10:38 Pulse 82 06/25/21 10:38 Resp 16 06/25/21 10:38 BP 123/71 06/25/21 10:38 Pulse Ox 92 L 06/25/21 12:42 Weight - Most Recent: 232 lb 1.6 oz I&O - Last 24 Hours: Intake & Output 06/24/21 06/25/21 06/25/21 22:59 06:59 14:59 Intake Total 880 300 Output Total 400 200 Balance 480 100 Lab Results Last 24 Hours: Laboratory Results - last 24 hr 06/24/21 06/24/21 06/25/21 Range/Units 16:45 21:06 06:20 WBC 16.51 H (4.23-9.07) K/mm3 RBC 4.50 L (4.63-6.08) M/mm3 Hgb 13.8 (13.7-17.5) gm/dl Hct 43.2 (40.1-51.0) % MCV 96.0 H (79.0-92.2) fl MCH 30.7 (25.7-32.2) pg MCHC 31.9 L (32.2-35.5) g/dl RDW Std Deviation 48.1 H (35.1-43.9) fL Plt Count 232 (163-337) K/mm3 MPV 10.4 (9.4-12.3) fl Neut % (Auto) 87.9 H (34.0-67.9) % Lymph % (Auto) 4.9 L (21.8-53.1) % [place] % (Auto) 6.1 (5.3-12.2) % Eos % (Auto) 0.2 L (0.8-7.0) Baso % (Auto) 0.1 (0.1-1.2) % Neut # (Auto) 14.53 H (1.78-5.38) K/mm3 Lymph # (Auto) 0.81 L (1.32-3.57) K/mm3 [place] # (Auto) 1.00 H (0.30-0.82) K/mm3 Eos # (Auto) 0.03 L (0.04-0.54) K/mm3 Baso # (Auto) 0.01 (0.01-0.08) K/mm3 Sodium (136-145) mEq/L Potassium (3.5-5.1) mEq/L Chloride (98-107) mEq/L Carbon Dioxide (21-32) mEq/L Anion Gap (5-15) BUN (7-18) mg/dL Creatinine (0.7-1.3) mg/dL Est Cr Clr Drug Dosing mL/min Estimated GFR (MDRD) (>60) mL/min BUN/Creatinine Ratio (14-18) Glucose (70-99) mg/dL POC Glucose 326 H 392 H (70-99) mg/dL Calcium (8.5-10.1) mg/dL Total Bilirubin (0.2-1.0) mg/dL AST (15-37) U/L ALT (16-63) U/L Alkaline Phosphatase (46-116) U/L C-Reactive Protein (<1.0) mg/dL Total Protein (6.4-8.2) g/dl Albumin (3.4-5.0) g/dl Globulin gm/dL Albumin/Globulin Ratio (1-2) 06/25/21 06/25/21 06/25/21 Range/Units 06:20 06:30 10:35 WBC (4.23-9.07) K/mm3 RBC (4.63-6.08) M/mm3 Hgb (13.7-17.5) gm/dl Hct (40.1-51.0) % MCV (79.0-92.2) fl MCH (25.7-32.2) pg MCHC (32.2-35.5) g/dl RDW Std Deviation (35.1-43.9) fL Plt Count (163-337) K/mm3 MPV (9.4-12.3) fl Neut % (Auto) (34.0-67.9) % Lymph % (Auto) (21.8-53.1) % [place] % (Auto) (5.3-12.2) % Eos % (Auto) (0.8-7.0) Baso % (Auto) (0.1-1.2) % Neut # (Auto) (1.78-5.38) K/mm3 Lymph # (Auto) (1.32-3.57) K/mm3 [place] # (Auto) (0.30-0.82) K/mm3 Eos # (Auto) (0.04-0.54) K/mm3 Baso # (Auto) (0.01-0.08) K/mm3 Sodium 140 (136-145) mEq/L Potassium 4.5 (3.5-5.1) mEq/L Chloride 102 (98-107) mEq/L Carbon Dioxide 31 (21-32) mEq/L Anion Gap 11.5 (5-15) BUN 36 H (7-18) mg/dL Creatinine 0.8 (0.7-1.3) mg/dL Est Cr Clr Drug Dosing 97.04 mL/min Estimated GFR (MDRD) > 60 (>60) mL/min BUN/Creatinine Ratio 45.0 H (14-18) Glucose 180 H (70-99) mg/dL POC Glucose 182 H 264 H (70-99) mg/dL Calcium 8.8 (8.5-10.1) mg/dL Total Bilirubin 0.6 (0.2-1.0) mg/dL AST 11 L (15-37) U/L ALT 11 L (16-63) U/L Alkaline Phosphatase 50 (46-116) U/L C-Reactive Protein 0.3 (<1.0) mg/dL Total Protein 6.0 L (6.4-8.2) g/dl Albumin 2.6 L (3.4-5.0) g/dl Globulin 3.4 gm/dL Albumin/Globulin Ratio 0.8 L (1-2) Med Orders - Current: Current Medications Acetaminophen (Acetaminophen 325 Mg Tab) 650 mg PO Q8H [facility] Last Admin: 06/25/21 06:31 Dose: 650 mg Documented by: Al Hydroxide/Mg Hydroxide (Aluminum Hydroxide/Magnesium Hydroxide/Simethicone Susp 30 Ml Cup) 30 ml PO Q4H PRN PRN Reason: Heartburn Last Admin: 06/14/21 21:37 Dose: 30 ml Documented by: Albuterol (Albuterol 6.7 Gm Inhaler) 0 gm INH QID PRN PRN Reason: SOB/Wheezing Last Admin: 06/25/21 08:24 Dose: 2 puff Documented by: Albuterol/Ipratropium (Albuterol/Ipratropium 3.0-0.5 Mg/3 Ml Neb Soln) 3 ml NEB Q4H PRN PRN Reason: Shortness Of Breath/wheezing Last Admin: 06/22/21 08:33 Dose: 3 ml Documented by: Alogliptin Benzoate (Alogliptin 12.5 Mg Tab) 12.5 mg PO BIDMEALS [facility] Last Admin: 06/25/21 06:32 Dose: 12.5 mg Documented by: Ascorbic Acid (Ascorbic Acid 500 Mg Tab) 500 mg PO DAILY [facility] Last Admin: 06/25/21 09:08 Dose: 500 mg Documented by: Baricitinib (Baricitinib 2 Mg Tab) 4 mg PO DAILY [facility] Stop: 06/26/21 09:01 Last Admin: 06/25/21 09:08 Dose: 4 mg Documented by: Dexamethasone (Dexamethasone 4 Mg Tab) 6 mg PO DAILY [facility] Last Admin: 06/25/21 09:08 Dose: 6 mg Documented by: Docusate Sodium (Docusate Sodium 100 Mg Cap) 100 mg PO BID PRN PRN Reason: Constipation Last Admin: 06/14/21 12:07 Dose: 100 mg Documented by: Enoxaparin Sodium (Enoxaparin 100 Mg/1 Ml Syringe) 100 mg SUBCUT Q12H [facility] Last Admin: 06/25/21 09:07 Dose: 100 mg Documented by: Finasteride (Finasteride 5 Mg Tab) 5 mg PO DAILY [facility] Last Admin: 06/25/21 09:08 Dose: 5 mg Documented by: Guaifenesin/Phenylephrine HCl (Guaifenesin/Dextromethorphan 100-10 Mg/5 Ml Soln 5 Ml Cup) 10 ml PO Q6H PRN PRN Reason: Cough Insulin Glargine (Insulin Glargine,Hum.Rec.Anlog 100 Unit/Ml 3 Ml Pen) 28 unit SUBCUT BEDTIME [facility] Last Admin: 06/24/21 21:09 Dose: 28 units Documented by: Insulin Human Regular (Insulin Regular, Human 100 Units/Ml 3 Ml Vial) 0 unit SUBCUT QIDACANDBED [facility]; Protocol Last Admin: 06/25/21 11:30 Dose: 9 unit Documented by: Levothyroxine Sodium (Levothyroxine 50 Mcg Tab) 50 mcg PO ACBREAKFAST [facility] Last Admin: 06/25/21 06:32 Dose: 50 mcg Documented by: Melatonin (Melatonin 3 Mg Tab) 6 mg PO BEDTIME [facility] Last Admin: 06/24/21 21:11 Dose: 6 mg Documented by: Carbidopa/Levodopa 25-250 Tab Own Med 1 tab PO 0600,1100,1500,1900,2300 [facility] Last Admin: 06/25/21 11:30 Dose: 1 tab Documented by: Ondansetron HCl (Ondansetron 4 Mg Tab.Dis) 4 mg PO Q4H PRN PRN Reason: nausea, able to take PO Oxycodone HCl (Oxycodone 5 Mg Tab) 5 mg PO Q4H PRN PRN Reason: Pain (moderate 4-6) Last Admin: 06/23/21 04:29 Dose: 5 mg Documented by: Sodium Chloride (Sodium Chloride 0.9% 10 Ml Syringe) 10 ml FLUSH ASDIRECTED PRN PRN Reason: Keep Vein Open Last Admin: 06/10/21 00:24 Dose: 10 ml Documented by: Tamsulosin HCl (Tamsulosin 0.4 Mg Cap.Er) 0.4 mg PO BEDTIME [facility] Last Admin: 06/24/21 21:11 Dose: 0.4 mg Documented by: Temazepam (Temazepam 15 Mg Cap) 15 mg PO BEDTIME PRN PRN Reason: Sleep Last Admin: 06/24/21 21:11 Dose: 15 mg Documented by: Trolamine Salicylate (Trolamine Salicylate/Aloe Vera 10% Crm 85 Gm Tube) 1 gm TOP Q2H PRN PRN Reason: Pain (moderate 4-6) Last Admin: 06/22/21 11:23 Dose: 1 applic Documented by: Trospium (Trospium 20 Mg Tab) 20 mg PO BID [facility] Last Admin: 06/25/21 09:08 Dose: 20 mg Documented by: Zinc Sulfate (Zinc Sulfate 220 Mg Cap) 220 mg PO DAILY [facility] Last Admin: 06/25/21 09:08 Dose: 220 mg Documented by: Discontinued Medications Acetaminophen (Acetaminophen 325 Mg Tab) 975 mg PO NOW ONE Stop: 06/09/21 21:16 Last Admin: 06/09/21 21:41 Dose: 350 mg Documented by: Acetaminophen (Acetaminophen 650 Mg Supp) 650 mg RECTAL NOW ONE Stop: 06/09/21 21:52 Last Admin: 06/09/21 22:30 Dose: 650 mg Documented by: Acetaminophen (Acetaminophen 325 Mg Tab) 650 mg PO Q4H PRN PRN Reason: Pain (Mild 1-3)/fever Last Admin: 06/12/21 08:10 Dose: 650 mg Documented by: Acetaminophen (Acetaminophen 325 Mg Tab) 975 mg PO Q8HR [facility] Acetaminophen (Acetaminophen 325 Mg Tab) 650 mg PO Q8H [facility] Last Admin: 06/12/21 11:51 Dose: Not Given Documented by: Acetaminophen (Acetaminophen 325 Mg Tab) 650 mg PO Q8H [facility] Last Admin: 06/16/21 02:16 Dose: Not Given Documented by: Amlodipine Besylate (Amlodipine 2.5 Mg Tab) 2.5 mg PO DAILY [facility] Last Admin: 06/25/21 09:21 Dose: Not Given Documented by: Carbidopa/Levodopa (Carbidopa/Levodopa 25-100 Mg Tab) 1 tab PO QID [facility] Last Admin: 06/10/21 16:54 Dose: 1 tab Documented by: Dexamethasone (Dexamethasone 4 Mg/Ml 5 Ml Mdv) 6 mg IV ONETIME ONE Stop: 06/10/21 00:53 Last Admin: 06/10/21 01:31 Dose: 6 mg Documented by: Dexamethasone (Dexamethasone 4 Mg Tab) 6 mg PO DAILY [facility] Stop: 06/18/21 09:01 Last Admin: 06/12/21 08:55 Dose: 6 mg Documented by: Dexamethasone (Dexamethasone 4 Mg Tab) 6 mg PO BID [facility] Last Admin: 06/19/21 09:25 Dose: 6 mg Documented by: Enoxaparin Sodium (Enoxaparin 40 Mg/0.4 Ml Syringe) 40 mg SUBCUT DAILY [facility] Last Admin: 06/14/21 10:24 Dose: 40 mg Documented by: Enoxaparin Sodium (Enoxaparin 100 Mg/1 Ml Syringe) 100 mg SUBCUT Q12H [facility] Last Admin: 06/15/21 22:00 Dose: 100 mg Documented by: Glimepiride (Glimepiride 2 Mg Tab) 4 mg PO DAILY [facility] Last Admin: 06/10/21 09:51 Dose: 4 mg Documented by: Glimepiride (Glimepiride 2 Mg Tab) 2 mg PO WITHBREAKFAST [facility] Last Admin: 06/11/21 06:05 Dose: 2 mg Documented by: Sodium Chloride (Normal Saline) 1,000 mls @ 250 mls/hr IV ONETIME ONE Stop: 06/10/21 01:14 Last Infusion: 06/09/21 21:41 Dose: 250 mls/hr Documented by: Sodium Chloride (Normal Saline) Confirm Administered Dose 1,000 mls @ as directed .ROUTE .STK-MED ONE Stop: 06/09/21 21:19 Last Admin: 06/10/21 01:11 Dose: Not Given Documented by: Remdesivir 200 mg/ Sodium (Chloride) 250 mls @ 250 mls/hr IV ONETIME ONE Stop: 06/10/21 00:53 Last Admin: 06/10/21 01:47 Dose: 250 mls/hr Documented by: Remdesivir 100 mg/ Sodium (Chloride) 100 mls @ 100 mls/hr IV Q24H [facility] Stop: 06/13/21 21:59 Last Admin: 06/13/21 21:19 Dose: 100 mls/hr Documented by: Ceftriaxone Sodium 1 gm/ (Sodium Chloride) 100 mls @ 200 mls/hr IV Q24H [facility] Last Admin: 06/11/21 09:01 Dose: 200 mls/hr Documented by: Ceftriaxone Sodium 2 gm/ (Sodium Chloride) 100 mls @ 200 mls/hr IV Q24H [facility] Stop: 06/16/21 09:29 Last Admin: 06/15/21 09:19 Dose: 200 mls/hr Documented by: Azithromycin 500 mg/ Sodium (Chloride) 250 mls @ 250 mls/hr IV Q24H [facility] Stop: 06/14/21 08:59 Last Admin: 06/14/21 08:49 Dose: 250 mls/hr Documented by: Sodium Chloride (Normal Saline) 100 mls @ 75 mls/hr IV ASDIRECTED [facility] Stop: 06/13/21 13:00 Last Admin: 06/13/21 09:52 Dose: 75 mls/hr Documented by: Lactated Ringer's (Ringers, Lactated) 1,000 mls @ 150 mls/hr IV ASDIRECTED [facility] Last Admin: 06/16/21 06:45 Dose: 150 mls/hr Documented by: Lactated Ringer's (Ringers, Lactated) Confirm Administered Dose 1,000 mls @ as directed .ROUTE .STK-MED ONE Stop: 06/16/21 06:44 Last Admin: 06/16/21 08:07 Dose: Not Given Documented by: Piperacillin Sod/Tazobactam (Sod 4.5 gm/ Sodium Chloride) 100 mls @ 200 mls/hr IV ONETIME ONE Stop: 06/16/21 08:31 Last Admin: 06/16/21 09:13 Dose: 200 mls/hr Documented by: Piperacillin Sod/Tazobactam (Sod 4.5 gm/ Sodium Chloride) 100 mls @ 25 mls/hr IV Q8H [facility] Stop: 06/21/21 16:01 Last Admin: 06/21/21 15:00 Dose: 25 mls/hr Documented by: Lactated Ringer's (Ringers, Lactated) 1,000 mls @ 75 mls/hr IV ASDIRECTED [facility] Last Admin: 06/16/21 22:47 Dose: 75 mls/hr Documented by: Heparin Sodium/Dextrose (Heparin 25,000 Units In D5w 500 Ml) 25,000 units in 500 mls @ 26 mls/hr IV TITRATE [facility]; Protocol Last Admin: 06/22/21 20:10 Dose: 29.6 ml/hr, 29.6 mls/hr Documented by: Insulin Glargine (Insulin Glarg,Human.Rec.Analog 100 Unit/Ml) 24 unit SUBCUT BEDTIME [facility] Insulin Glargine (Insulin Glargine,Hum.Rec.Anlog 100 Unit/Ml 3 Ml Pen) 24 unit SUBCUT BEDTIME [facility] Last Admin: 06/10/21 21:05 Dose: 24 units Documented by: Insulin Glargine (Insulin Glargine,Hum.Rec.Anlog 100 Unit/Ml 3 Ml Pen) 28 unit SUBCUT BEDTIME [facility] Last Admin: 06/11/21 21:21 Dose: 28 units Documented by: Insulin Glargine (Insulin Glargine,Hum.Rec.Anlog 100 Unit/Ml 3 Ml Pen) 32 unit SUBCUT BEDTIME [facility] Last Admin: 06/19/21 21:29 Dose: 32 unit Documented by: Insulin Human Isoph/Insulin Regular (Insulin Nph/Insulin Regular,Human 70-30 100 Units/Ml 10 Ml Vial) 0 units SUBCUT BIDAC [facility]; Protocol Last Admin: 06/10/21 02:36 Dose: Not Given Documented by: Insulin Human Lispro (Insulin Lispro 100 Unit/Ml 3 Ml Kwikpen) 0 unit SUBCUT QIDACANDBED [facility]; Protocol Last Admin: 06/10/21 12:15 Dose: Not Given Documented by: Insulin Human Regular (Insulin Regular, Human 100 Units/Ml 3 Ml Vial) 0 unit SUBCUT TIDPC [facility]; Protocol Last Admin: 06/12/21 09:12 Dose: 6 unit Documented by: Iopamidol (Iopamidol 755 Mg/Ml 100 Ml Bottle) 100 ml IVPUSH ONETIME ONE Stop: 06/09/21 23:54 Last Admin: 06/10/21 00:24 Dose: 100 ml Documented by: Iopamidol (Iopamidol 755 Mg/Ml 100 Ml Bottle) 100 ml IVPUSH ONETIME ONE Stop: 06/13/21 08:56 Last Admin: 06/13/21 09:52 Dose: 100 ml Documented by: Magnesium Hydroxide (Magnesium Hydroxide 400 Mg/5 Ml Susp 30 Ml Cup) 30 ml PO ONETIME ONE Stop: 06/13/21 06:01 Last Admin: 06/13/21 06:18 Dose: 30 ml Documented by: Magnesium Hydroxide (Magnesium Hydroxide 400 Mg/5 Ml Susp 30 Ml Cup) 30 ml PO ONETIME ONE Stop: 06/22/21 13:01 Last Admin: 06/22/21 13:04 Dose: 30 ml Documented by: Metformin HCl (Metformin 500 Mg Tab) 1,000 [facility] Last Admin: 06/11/21 06:06 Dose: 1,000 mg Documented by: Morphine Sulfate (Morphine 2 Mg/Ml Syringe) 2 mg IVPUSH Q2H PRN PRN Reason: Pain (severe 7-10) Stop: 06/11/21 07:46 Non-Formulary Medication (Tresiba) 24 units SQ ONETIME ONE Stop: 06/10/21 03:46 Last Admin: 06/10/21 03:45 Dose: 24 units Documented by: Carbidopa/Levodopa 25-250 Tab Own Med 1 tab PO 0600,1100,1500,1900,2300 [facility] Last Admin: 06/11/21 05:29 Dose: 1 tab Documented by: Non-Formulary Medication (Sitagliptin Phos/Metformin Hcl [Janumet 50-1,000 Mg]) 1 tab PO BID [facility] Non-Formulary Medication (Non-Formulary Medication 1 Each) 1 each PO BID [facility] Pantoprazole Sodium (Pantoprazole 40 Mg Vial) 80 mg IVPUSH BOLUS ONE Stop: 06/16/21 07:05 Last Admin: 06/16/21 08:03 Dose: 80 mg Documented by: Sodium Chloride (Sodium Chloride 0.9% 10 Ml Syringe) 10 ml FLUSH ONETIME PRN PRN Reason: IV FLUSH Stop: 06/13/21 13:00 Trospium (Trospium 20 Mg Tab) 10 mg PO BID [facility] Last Admin: 06/10/21 21:03 Dose: 10 mg Documented by: - Exam Quality Assessment: Supplemental Oxygen (3 L per nasal cannula), DVT Prophylaxis (Lovenox) Urinary Catheter Total Time: 1Days 9Hours General: Alert, Oriented, Cooperative, No Acute Distress HEENT: Pupils Equal, Mucous Membr. Moist/[place] Neck: Supple, Trachea Midline Lungs: Normal Respiratory Effort, Crackles (Fine crackles noted to bilateral bases) Cardiovascular: Regular Rate, Regular Rhythm, No Murmurs GI/Abdominal Exam: Normal Bowel Sounds, Soft, Non-Tender, No Distention (Male) Exam: Deferred Back Exam: Normal Inspection Extremities: Normal Inspection, Normal Range of Motion, Non-Tender, No Pedal Edema, Normal Capillary Refill Peripheral Pulses: 2+: Radial (L), Radial (R) Skin: Warm, Dry, Intact Neurological: No New Focal Deficit Psy/Mental Status: Alert, Normal Affect, Normal Mood - Patient Data Lab Results Last 24 hrs: Laboratory Results - last 24 hr 06/24/21 06/24/21 06/25/21 Range/Units 16:45 21:06 06:20 WBC 16.51 H (4.23-9.07) K/mm3 RBC 4.50 L (4.63-6.08) M/mm3 Hgb 13.8 (13.7-17.5) gm/dl Hct 43.2 (40.1-51.0) % MCV 96.0 H (79.0-92.2) fl MCH 30.7 (25.7-32.2) pg MCHC 31.9 L (32.2-35.5) g/dl RDW Std Deviation 48.1 H (35.1-43.9) fL Plt Count 232 (163-337) K/mm3 MPV 10.4 (9.4-12.3) fl Neut % (Auto) 87.9 H (34.0-67.9) % Lymph % (Auto) 4.9 L (21.8-53.1) % [place] % (Auto) 6.1 (5.3-12.2) % Eos % (Auto) 0.2 L (0.8-7.0) Baso % (Auto) 0.1 (0.1-1.2) % Neut # (Auto) 14.53 H (1.78-5.38) K/mm3 Lymph # (Auto) 0.81 L (1.32-3.57) K/mm3 [place] # (Auto) 1.00 H (0.30-0.82) K/mm3 Eos # (Auto) 0.03 L (0.04-0.54) K/mm3 Baso # (Auto) 0.01 (0.01-0.08) K/mm3 Sodium (136-145) mEq/L Potassium (3.5-5.1) mEq/L Chloride (98-107) mEq/L Carbon Dioxide (21-32) mEq/L Anion Gap (5-15) BUN (7-18) mg/dL Creatinine (0.7-1.3) mg/dL Est Cr Clr Drug Dosing mL/min Estimated GFR (MDRD) (>60) mL/min BUN/Creatinine Ratio (14-18) Glucose (70-99) mg/dL POC Glucose 326 H 392 H (70-99) mg/dL Calcium (8.5-10.1) mg/dL Total Bilirubin (0.2-1.0) mg/dL AST (15-37) U/L ALT (16-63) U/L Alkaline Phosphatase (46-116) U/L C-Reactive Protein (<1.0) mg/dL Total Protein (6.4-8.2) g/dl Albumin (3.4-5.0) g/dl Globulin gm/dL Albumin/Globulin Ratio (1-2) 06/25/21 06/25/21 06/25/21 Range/Units 06:20 06:30 10:35 WBC (4.23-9.07) K/mm3 RBC (4.63-6.08) M/mm3 Hgb (13.7-17.5) gm/dl Hct (40.1-51.0) % MCV (79.0-92.2) fl MCH (25.7-32.2) pg MCHC (32.2-35.5) g/dl RDW Std Deviation (35.1-43.9) fL Plt Count (163-337) K/mm3 MPV (9.4-12.3) fl Neut % (Auto) (34.0-67.9) % Lymph % (Auto) (21.8-53.1) % [place] % (Auto) (5.3-12.2) % Eos % (Auto) (0.8-7.0) Baso % (Auto) (0.1-1.2) % Neut # (Auto) (1.78-5.38) K/mm3 Lymph # (Auto) (1.32-3.57) K/mm3 [place] # (Auto) (0.30-0.82) K/mm3 Eos # (Auto) (0.04-0.54) K/mm3 Baso # (Auto) (0.01-0.08) K/mm3 Sodium 140 (136-145) mEq/L Potassium 4.5 (3.5-5.1) mEq/L Chloride 102 (98-107) mEq/L Carbon Dioxide 31 (21-32) mEq/L Anion Gap 11.5 (5-15) BUN 36 H (7-18) mg/dL Creatinine 0.8 (0.7-1.3) mg/dL Est Cr Clr Drug Dosing 97.04 mL/min Estimated GFR (MDRD) > 60 (>60) mL/min BUN/Creatinine Ratio 45.0 H (14-18) Glucose 180 H (70-99) mg/dL POC Glucose 182 H 264 H (70-99) mg/dL Calcium 8.8 (8.5-10.1) mg/dL Total Bilirubin 0.6 (0.2-1.0) mg/dL AST 11 L (15-37) U/L ALT 11 L (16-63) U/L Alkaline Phosphatase 50 (46-116) U/L C-Reactive Protein 0.3 (<1.0) mg/dL Total Protein 6.0 L (6.4-8.2) g/dl Albumin 2.6 L (3.4-5.0) g/dl Globulin 3.4 gm/dL Albumin/Globulin Ratio 0.8 L (1-2) Result Diagrams: 06/25/21 06:20 06/25/21 06:20 Sepsis Event Note - Evaluation Sepsis Screening Result: No Definite Risk - Focused Exam Vital Signs: Vital Signs Temp Pulse Resp BP Pulse Ox Pulse Ox 06/25/21 12:42 92 L 06/25/21 10:38 98.2 F 82 16 123/71 90 L 06/25/21 09:06 98.6 F 78 18 98/57 L 87 L 06/25/21 08:25 91 L 06/25/21 04:35 97.2 F 56 L 13 142/66 H 91 L 06/25/21 04:18 98 - Problem List & Annotations (1) Acute respiratory failure due to COVID-19 SNOMED Code(s): 781212251 Code(s): U07.1 - COVID-19; J96.00 - ACUTE RESPIRATORY FAILURE, UNSP W HYPOXIA OR HYPERCAPNIA Status: Acute Priority: High Current Visit: Yes (2) Elevated C-reactive protein (CRP) SNOMED Code(s): 156904759861251 Code(s): R79.82 - ELEVATED C-REACTIVE PROTEIN (CRP) Status: Acute Priority: High Current Visit: Yes (3) Elevated d-dimer SNOMED Code(s): 335861393 Code(s): R79.89 - OTHER SPECIFIED ABNORMAL FINDINGS OF BLOOD CHEMISTRY Status: Acute Priority: High Current Visit: Yes (4) Pneumonia due to COVID-19 virus SNOMED Code(s): 162958657749474972 Code(s): U07.1 - COVID-19; J12.82 - PNEUMONIA DUE TO CORONAVIRUS DISEASE 2019 Status: Acute Priority: High Current Visit: Yes (5) Diabetes mellitus type 2 in nonobese SNOMED Code(s): 958811179 Code(s): E11.9 - TYPE 2 DIABETES MELLITUS WITHOUT COMPLICATIONS Status: Chronic Priority: High Current Visit: Yes (6) Parkinson's disease dementia SNOMED Code(s): 302594376019536 Code(s): G20 - PARKINSON'S DISEASE; F02.80 - DEMENTIA IN OTH DISEASES CLASSD ELSWHR W/O BEHAVRL DISTURB Status: Chronic Priority: High Current Visit: Yes Qualifiers: Dementia behavioral disturbance: without behavioral disturbance Qualified Code(s): G20 - Parkinson's disease; F02.80 - Dementia in other diseases classified elsewhere without behavioral disturbance (7) Aspiration into airway SNOMED Code(s): 167314994 Code(s): T17.908A - UNSP FB IN RESP TRACT, PART UNSP CAUSING OTH INJURY, INIT Status: Suspected Priority: High Current Visit: Yes Qualifiers: Encounter type: initial encounter Qualified Code(s): T17.908A - Unspecified foreign body in respiratory tract, part unspecified causing other injury, initial encounter (8) Elevated procalcitonin SNOMED Code(s): 359282881, 020472962 Code(s): R79.89 - OTHER SPECIFIED ABNORMAL FINDINGS OF BLOOD CHEMISTRY Status: Resolved Priority: High Current Visit: Yes (9) GI bleed SNOMED Code(s): 74270935 Code(s): K92.2 - GASTROINTESTINAL HEMORRHAGE, UNSPECIFIED Status: Resolved Priority: Medium Current Visit: Yes Qualifiers: GI bleed type/associated pathology: unspecified gastrointestinal hemorrhage type Qualified Code(s): K92.2 - Gastrointestinal hemorrhage, unspecified - Problem List Review Problem List Initiated/Reviewed/Updated: Yes - Assessment Assessment:: 06/22/2021 71-year-old male who was admitted to the floor due to Covid pneumonia. Patient did complete remdesivir treatment and is currently receiving dexamethasone. He was on oxygen at 4 L per nasal cannula this morning however respiratory therapy did have to increase him to 5 L. Chest x-ray was completed today.Radiologist impression portable view of the chest comparison to prior chest x-ray of 06/20/2021: Diffuse increased density is seen within the right chest. Lesser density within the left chest is seen. Heart size is normal. Upper mediastinum is stable. No acute change within the osseous structures is seen. Impression: 1. Worsening density within both sides of the chest, greater on the right side. Findings are compatible with worsening Covid pneumonia. However, patient denies worsening shortness of breath. Lung sounds continue to have crackles noted bilaterally. Patient continues on a heparin drip for DVT prophylaxis as throughout his stay here he did have a noted GI bleed. Coffee-ground emesis was noted and is questionable whether or not the patient aspirated. Patient did receive IV Zosyn to treat this and this course has been completed. He remains afebrile and there are no signs of worsening infection. Labs today revealWBC of 10.39, hemoglobin 13.1, hematocrit 41.6, platelet count 199, PTT 56.2, D-dimer 5.22, sodium 140, potassium 4.3, carbon dioxide 34, anion gap 8.3, BUN 24, creatinine 0.9, GFR greater than 60, ferritin 1931, C-reactive protein 1.4. Elevation in WBC likely due to dexamethasone for treatment of Covid. Patient continues to receive sliding scale insulin and 4 times daily Accu-Cheks. Unknown length of stay due to the severity of symptoms. - Plan Plan:: Assessment: Acute hypoxic respiratory failure secondary to Covid 19 pneumonitis Acute COVID-19 Diabetes mellitus. 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 Plan: Remains status quo. Continue Covid protocol and conventional therapies - baricitinib 4 mg daily, dexamethasone 6 mg daily, Lovenox 100 mg twice daily RT consult with supplemental oxygen with titration as necessary. Lovenox 100mg bid for hypercoagulable prophylaxis, meanwhile being mindful of any new GI bleeding. Glucose control with hyperglycemia protocol with expected higher sugars due to steroids. Hypotension noted today after addition of amlodipine yesterday. Patient was symptomatic with this and complained of dizziness with standing or ambulation. Will discontinue amlodipine. CODE STATUS: Full code. DVT prophylaxis: lovenox LOS greater than 96 hours because of the slow response to treatment
[2021-06-25] MEDS: Insulin Lispro 100 Unit/ML 3 ML KwikPen SUBCUT SCH ×2 (17:27→22:16)
[2021-06-25] MEDS ORDERED: Insulin Glargine,Hum.Rec.Anlog 100 UNIT/ML 3 ML Pen SUBCUT SCH (21:00)
[2021-06-25] MEDS: Tamsulosin 0.4 MG Cap.ER PO SCH (22:18)
[2021-06-25] MEDS: Temazepam 15 MG Cap PO PRN (22:18)
[2021-06-25] MEDS: Melatonin 3 MG Tab PO SCH (22:18)
[2021-06-26] MEDS: LEVODOPA PO SCH ×3 (05:32→15:07)
[2021-06-26] MEDS: CARBIDOPA PO SCH ×3 (05:32→15:07)
[2021-06-26] MEDS: Acetaminophen 325 MG Tab PO SCH (05:32)
[2021-06-26] MEDS: Levothyroxine 50 MCG Tab PO SCH (05:32)
--- NOTE | 2021-06-26 07:34 | PCM.PN ---
- General Info Date of Service: 06/26/21 Admission Dx/Problem (Free Text): Admission Diagnosis/Problem Admission Diagnosis/Problem acute respiratory failure due to COVID-19 pneumonia. - Patient Data Vitals - Most Recent: Last Vital Signs Temp 97.5 F 06/26/21 03:24 Pulse 59 L 06/26/21 03:24 Resp 18 06/26/21 03:24 BP 145/82 H 06/26/21 03:24 Pulse Ox 98 06/26/21 05:50 Weight - Most Recent: 233 lb 9.6 oz I&O - Last 24 Hours: Intake & Output 06/25/21 06/26/21 06/26/21 22:59 06:59 14:59 Intake Total 1600 600 Balance 1600 600 Lab Results Last 24 Hours: Laboratory Results - last 24 hr 06/25/21 06/25/21 06/25/21 Range/Units 06:20 10:35 18:25 WBC (4.23-9.07) K/mm3 RBC (4.63-6.08) M/mm3 Hgb (13.7-17.5) gm/dl Hct (40.1-51.0) % MCV (79.0-92.2) fl MCH (25.7-32.2) pg MCHC (32.2-35.5) g/dl RDW Std Deviation (35.1-43.9) fL Plt Count (163-337) K/mm3 MPV (9.4-12.3) fl Neut % (Auto) (34.0-67.9) % Lymph % (Auto) (21.8-53.1) % [place] % (Auto) (5.3-12.2) % Eos % (Auto) (0.8-7.0) Baso % (Auto) (0.1-1.2) % Neut # (Auto) (1.78-5.38) K/mm3 Lymph # (Auto) (1.32-3.57) K/mm3 [place] # (Auto) (0.30-0.82) K/mm3 Eos # (Auto) (0.04-0.54) K/mm3 Baso # (Auto) (0.01-0.08) K/mm3 Sodium 140 (136-145) mEq/L Potassium 4.5 (3.5-5.1) mEq/L Chloride 102 (98-107) mEq/L Carbon Dioxide 31 (21-32) mEq/L Anion Gap 11.5 (5-15) BUN 36 H (7-18) mg/dL Creatinine 0.8 (0.7-1.3) mg/dL Est Cr Clr Drug Dosing 97.04 mL/min Estimated GFR (MDRD) > 60 (>60) mL/min BUN/Creatinine Ratio 45.0 H (14-18) Glucose 180 H (70-99) mg/dL POC Glucose 264 H 385 H (70-99) mg/dL Calcium 8.8 (8.5-10.1) mg/dL Total Bilirubin 0.6 (0.2-1.0) mg/dL AST 11 L (15-37) U/L ALT 11 L (16-63) U/L Alkaline Phosphatase 50 (46-116) U/L C-Reactive Protein 0.3 (<1.0) mg/dL Total Protein 6.0 L (6.4-8.2) g/dl Albumin 2.6 L (3.4-5.0) g/dl Globulin 3.4 gm/dL Albumin/Globulin Ratio 0.8 L (1-2) 06/25/21 06/26/21 06/26/21 Range/Units 22:15 07:07 07:09 WBC 16.10 H (4.23-9.07) K/mm3 RBC 4.31 L (4.63-6.08) M/mm3 Hgb 13.2 L (13.7-17.5) gm/dl Hct 41.3 (40.1-51.0) % MCV 95.8 H (79.0-92.2) fl MCH 30.6 (25.7-32.2) pg MCHC 32.0 L (32.2-35.5) g/dl RDW Std Deviation 48.4 H (35.1-43.9) fL Plt Count 226 (163-337) K/mm3 MPV 10.2 (9.4-12.3) fl Neut % (Auto) 86.6 H (34.0-67.9) % Lymph % (Auto) 6.5 L (21.8-53.1) % [place] % (Auto) 6.0 (5.3-12.2) % Eos % (Auto) 0.2 L (0.8-7.0) Baso % (Auto) 0.1 (0.1-1.2) % Neut # (Auto) 13.93 H (1.78-5.38) K/mm3 Lymph # (Auto) 1.05 L (1.32-3.57) K/mm3 [place] # (Auto) 0.97 H (0.30-0.82) K/mm3 Eos # (Auto) 0.04 (0.04-0.54) K/mm3 Baso # (Auto) 0.01 (0.01-0.08) K/mm3 Sodium (136-145) mEq/L Potassium (3.5-5.1) mEq/L Chloride (98-107) mEq/L Carbon Dioxide (21-32) mEq/L Anion Gap (5-15) BUN (7-18) mg/dL Creatinine (0.7-1.3) mg/dL Est Cr Clr Drug Dosing mL/min Estimated GFR (MDRD) (>60) mL/min BUN/Creatinine Ratio (14-18) Glucose (70-99) mg/dL POC Glucose 197 H 193 H (70-99) mg/dL Calcium (8.5-10.1) mg/dL Total Bilirubin (0.2-1.0) mg/dL AST (15-37) U/L ALT (16-63) U/L Alkaline Phosphatase (46-116) U/L C-Reactive Protein (<1.0) mg/dL Total Protein (6.4-8.2) g/dl Albumin (3.4-5.0) g/dl Globulin gm/dL Albumin/Globulin Ratio (1-2) Med Orders - Current: Current Medications Acetaminophen (Acetaminophen 325 Mg Tab) 650 mg PO Q8H NALDO Last Admin: 06/26/21 05:32 Dose: 650 mg Documented by: Al Hydroxide/Mg Hydroxide (Aluminum Hydroxide/Magnesium Hydroxide/Simethicone Susp 30 Ml Cup) 30 ml PO Q4H PRN PRN Reason: Heartburn Last Admin: 06/14/21 21:37 Dose: 30 ml Documented by: Albuterol (Albuterol 6.7 Gm Inhaler) 0 gm INH QID PRN PRN Reason: SOB/Wheezing Last Admin: 06/25/21 20:31 Dose: 2 puff Documented by: Albuterol/Ipratropium (Albuterol/Ipratropium 3.0-0.5 Mg/3 Ml Neb Soln) 3 ml NEB Q4H PRN PRN Reason: Shortness Of Breath/wheezing Last Admin: 06/22/21 08:33 Dose: 3 ml Documented by: Alogliptin Benzoate (Alogliptin 12.5 Mg Tab) 12.5 mg PO BIDMEALS [facility] Last Admin: 06/26/21 06:00 Dose: Not Given Documented by: Ascorbic Acid (Ascorbic Acid 500 Mg Tab) 500 mg PO DAILY [facility] Last Admin: 06/25/21 09:08 Dose: 500 mg Documented by: Baricitinib (Baricitinib 2 Mg Tab) 4 mg PO DAILY [facility] Stop: 06/26/21 09:01 Last Admin: 06/25/21 09:08 Dose: 4 mg Documented by: Dexamethasone (Dexamethasone 4 Mg Tab) 6 mg PO DAILY [facility] Last Admin: 06/25/21 09:08 Dose: 6 mg Documented by: Docusate Sodium (Docusate Sodium 100 Mg Cap) 100 mg PO BID PRN PRN Reason: Constipation Last Admin: 06/14/21 12:07 Dose: 100 mg Documented by: Enoxaparin Sodium (Enoxaparin 100 Mg/1 Ml Syringe) 100 mg SUBCUT Q12H [facility] Last Admin: 06/25/21 22:18 Dose: 100 mg Documented by: Finasteride (Finasteride 5 Mg Tab) 5 mg PO DAILY [facility] Last Admin: 06/25/21 09:08 Dose: 5 mg Documented by: Guaifenesin/Phenylephrine HCl (Guaifenesin/Dextromethorphan 100-10 Mg/5 Ml Soln 5 Ml Cup) 10 ml PO Q6H PRN PRN Reason: Cough Insulin Glargine (Insulin Glargine,Hum.Rec.Anlog 100 Unit/Ml 3 Ml Pen) 30 unit SUBCUT BEDTIME [facility] Last Admin: 06/25/21 22:17 Dose: 30 units Documented by: Insulin Human Lispro (Insulin Lispro 100 Unit/Ml 3 Ml Kwikpen) 6 unit SUBCUT ONETIME ONE Stop: 06/26/21 17:01 Insulin Human Lispro (Insulin Lispro 100 Unit/Ml 3 Ml Kwikpen) 0 unit SUBCUT QIDACANDBED [facility]; Protocol Last Admin: 06/25/21 22:16 Dose: 3 units Documented by: Levothyroxine Sodium (Levothyroxine 50 Mcg Tab) 50 mcg PO ACBREAKFAST [facility] Last Admin: 06/26/21 05:32 Dose: 50 mcg Documented by: Melatonin (Melatonin 3 Mg Tab) 6 mg PO BEDTIME [facility] Last Admin: 06/25/21 22:18 Dose: 6 mg Documented by: Carbidopa/Levodopa 25-250 Tab Own Med 1 tab PO 0600,1100,1500,1900,2300 [facility] Last Admin: 06/26/21 05:32 Dose: 1 tab Documented by: Ondansetron HCl (Ondansetron 4 Mg Tab.Dis) 4 mg PO Q4H PRN PRN Reason: nausea, able to take PO Oxycodone HCl (Oxycodone 5 Mg Tab) 5 mg PO Q4H PRN PRN Reason: Pain (moderate 4-6) Last Admin: 06/23/21 04:29 Dose: 5 mg Documented by: Sodium Chloride (Sodium Chloride 0.9% 10 Ml Syringe) 10 ml FLUSH ASDIRECTED PRN PRN Reason: Keep Vein Open Last Admin: 06/10/21 00:24 Dose: 10 ml Documented by: Tamsulosin HCl (Tamsulosin 0.4 Mg Cap.Er) 0.4 mg PO BEDTIME [facility] Last Admin: 06/25/21 22:18 Dose: 0.4 mg Documented by: Temazepam (Temazepam 15 Mg Cap) 15 mg PO BEDTIME PRN PRN Reason: Sleep Last Admin: 06/25/21 22:18 Dose: 15 mg Documented by: Trolamine Salicylate (Trolamine Salicylate/Aloe Vera 10% Crm 85 Gm Tube) 1 gm TOP Q2H PRN PRN Reason: Pain (moderate 4-6) Last Admin: 06/22/21 11:23 Dose: 1 applic Documented by: Trospium (Trospium 20 Mg Tab) 20 mg PO BID [facility] Last Admin: 06/25/21 22:18 Dose: 20 mg Documented by: Zinc Sulfate (Zinc Sulfate 220 Mg Cap) 220 mg PO DAILY [facility] Last Admin: 06/25/21 09:08 Dose: 220 mg Documented by: Discontinued Medications Acetaminophen (Acetaminophen 325 Mg Tab) 975 mg PO NOW ONE Stop: 06/09/21 21:16 Last Admin: 06/09/21 21:41 Dose: 350 mg Documented by: Acetaminophen (Acetaminophen 650 Mg Supp) 650 mg RECTAL NOW ONE Stop: 06/09/21 21:52 Last Admin: 06/09/21 22:30 Dose: 650 mg Documented by: Acetaminophen (Acetaminophen 325 Mg Tab) 650 mg PO Q4H PRN PRN Reason: Pain (Mild 1-3)/fever Last Admin: 06/12/21 08:10 Dose: 650 mg Documented by: Acetaminophen (Acetaminophen 325 Mg Tab) 975 mg PO Q8HR [facility] Acetaminophen (Acetaminophen 325 Mg Tab) 650 mg PO Q8H [facility] Last Admin: 06/12/21 11:51 Dose: Not Given Documented by: Acetaminophen (Acetaminophen 325 Mg Tab) 650 mg PO Q8H [facility] Last Admin: 06/16/21 02:16 Dose: Not Given Documented by: Amlodipine Besylate (Amlodipine 2.5 Mg Tab) 2.5 mg PO DAILY [facility] Last Admin: 06/25/21 09:21 Dose: Not Given Documented by: Carbidopa/Levodopa (Carbidopa/Levodopa 25-100 Mg Tab) 1 tab PO QID [facility] Last Admin: 06/10/21 16:54 Dose: 1 tab Documented by: Dexamethasone (Dexamethasone 4 Mg/Ml 5 Ml Mdv) 6 mg IV ONETIME ONE Stop: 06/10/21 00:53 Last Admin: 06/10/21 01:31 Dose: 6 mg Documented by: Dexamethasone (Dexamethasone 4 Mg Tab) 6 mg PO DAILY [facility] Stop: 06/18/21 09:01 Last Admin: 06/12/21 08:55 Dose: 6 mg Documented by: Dexamethasone (Dexamethasone 4 Mg Tab) 6 mg PO BID [facility] Last Admin: 06/19/21 09:25 Dose: 6 mg Documented by: Enoxaparin Sodium (Enoxaparin 40 Mg/0.4 Ml Syringe) 40 mg SUBCUT DAILY [facility] Last Admin: 06/14/21 10:24 Dose: 40 mg Documented by: Enoxaparin Sodium (Enoxaparin 100 Mg/1 Ml Syringe) 100 mg SUBCUT Q12H [facility] Last Admin: 06/15/21 22:00 Dose: 100 mg Documented by: Glimepiride (Glimepiride 2 Mg Tab) 4 mg PO DAILY [facility] Last Admin: 06/10/21 09:51 Dose: 4 mg Documented by: Glimepiride (Glimepiride 2 Mg Tab) 2 mg PO WITHBREAKFAST [facility] Last Admin: 06/11/21 06:05 Dose: 2 mg Documented by: Sodium Chloride (Normal Saline) 1,000 mls @ 250 mls/hr IV ONETIME ONE Stop: 06/10/21 01:14 Last Infusion: 06/09/21 21:41 Dose: 250 mls/hr Documented by: Sodium Chloride (Normal Saline) Confirm Administered Dose 1,000 mls @ as directed .ROUTE .STK-MED ONE Stop: 06/09/21 21:19 Last Admin: 06/10/21 01:11 Dose: Not Given Documented by: Remdesivir 200 mg/ Sodium (Chloride) 250 mls @ 250 mls/hr IV ONETIME ONE Stop: 06/10/21 00:53 Last Admin: 06/10/21 01:47 Dose: 250 mls/hr Documented by: Remdesivir 100 mg/ Sodium (Chloride) 100 mls @ 100 mls/hr IV Q24H [facility] Stop: 06/13/21 21:59 Last Admin: 06/13/21 21:19 Dose: 100 mls/hr Documented by: Ceftriaxone Sodium 1 gm/ (Sodium Chloride) 100 mls @ 200 mls/hr IV Q24H [facility] Last Admin: 06/11/21 09:01 Dose: 200 mls/hr Documented by: Ceftriaxone Sodium 2 gm/ (Sodium Chloride) 100 mls @ 200 mls/hr IV Q24H [facility] Stop: 06/16/21 09:29 Last Admin: 06/15/21 09:19 Dose: 200 mls/hr Documented by: Azithromycin 500 mg/ Sodium (Chloride) 250 mls @ 250 mls/hr IV Q24H [facility] Stop: 06/14/21 08:59 Last Admin: 06/14/21 08:49 Dose: 250 mls/hr Documented by: Sodium Chloride (Normal Saline) 100 mls @ 75 mls/hr IV ASDIRECTED [facility] Stop: 06/13/21 13:00 Last Admin: 06/13/21 09:52 Dose: 75 mls/hr Documented by: Lactated Ringer's (Ringers, Lactated) 1,000 mls @ 150 mls/hr IV ASDIRECTED [facility] Last Admin: 06/16/21 06:45 Dose: 150 mls/hr Documented by: Lactated Ringer's (Ringers, Lactated) Confirm Administered Dose 1,000 mls @ as directed .ROUTE .STK-MED ONE Stop: 06/16/21 06:44 Last Admin: 06/16/21 08:07 Dose: Not Given Documented by: Piperacillin Sod/Tazobactam (Sod 4.5 gm/ Sodium Chloride) 100 mls @ 200 mls/hr IV ONETIME ONE Stop: 06/16/21 08:31 Last Admin: 06/16/21 09:13 Dose: 200 mls/hr Documented by: Piperacillin Sod/Tazobactam (Sod 4.5 gm/ Sodium Chloride) 100 mls @ 25 mls/hr IV Q8H [facility] Stop: 06/21/21 16:01 Last Admin: 06/21/21 15:00 Dose: 25 mls/hr Documented by: Lactated Ringer's (Ringers, Lactated) 1,000 mls @ 75 mls/hr IV ASDIRECTED [facility] Last Admin: 06/16/21 22:47 Dose: 75 mls/hr Documented by: Heparin Sodium/Dextrose (Heparin 25,000 Units In D5w 500 Ml) 25,000 units in 500 mls @ 26 mls/hr IV TITRATE [facility]; Protocol Last Admin: 06/22/21 20:10 Dose: 29.6 ml/hr, 29.6 mls/hr Documented by: Insulin Glargine (Insulin Glarg,Human.Rec.Analog 100 Unit/Ml) 24 unit SUBCUT BEDTIME [facility] Insulin Glargine (Insulin Glargine,Hum.Rec.Anlog 100 Unit/Ml 3 Ml Pen) 24 unit SUBCUT BEDTIME [facility] Last Admin: 06/10/21 21:05 Dose: 24 units Documented by: Insulin Glargine (Insulin Glargine,Hum.Rec.Anlog 100 Unit/Ml 3 Ml Pen) 28 unit SUBCUT BEDTIME [facility] Last Admin: 06/11/21 21:21 Dose: 28 units Documented by: Insulin Glargine (Insulin Glargine,Hum.Rec.Anlog 100 Unit/Ml 3 Ml Pen) 32 unit SUBCUT BEDTIME [facility] Last Admin: 06/19/21 21:29 Dose: 32 unit Documented by: Insulin Glargine (Insulin Glargine,Hum.Rec.Anlog 100 Unit/Ml 3 Ml Pen) 28 unit SUBCUT BEDTIME [facility] Last Admin: 06/24/21 21:09 Dose: 28 units Documented by: Insulin Human Isoph/Insulin Regular (Insulin Nph/Insulin Regular,Human 70-30 100 Units/Ml 10 Ml Vial) 0 units SUBCUT BIDAC [facility]; Protocol Last Admin: 06/10/21 02:36 Dose: Not Given Documented by: Insulin Human Lispro (Insulin Lispro 100 Unit/Ml 3 Ml Kwikpen) 0 unit SUBCUT QIDACANDBED [facility]; Protocol Last Admin: 06/10/21 12:15 Dose: Not Given Documented by: Insulin Human Regular (Insulin Regular, Human 100 Units/Ml 3 Ml Vial) 0 unit SUBCUT TIDPC [facility]; Protocol Last Admin: 06/12/21 09:12 Dose: 6 unit Documented by: Insulin Human Regular (Insulin Regular, Human 100 Units/Ml 3 Ml Vial) 0 unit SUBCUT QIDACANDBED [facility]; Protocol Last Admin: 06/25/21 11:30 Dose: 9 unit Documented by: Iopamidol (Iopamidol 755 Mg/Ml 100 Ml Bottle) 100 ml IVPUSH ONETIME ONE Stop: 06/09/21 23:54 Last Admin: 06/10/21 00:24 Dose: 100 ml Documented by: Iopamidol (Iopamidol 755 Mg/Ml 100 Ml Bottle) 100 ml IVPUSH ONETIME ONE Stop: 06/13/21 08:56 Last Admin: 06/13/21 09:52 Dose: 100 ml Documented by: Magnesium Hydroxide (Magnesium Hydroxide 400 Mg/5 Ml Susp 30 Ml Cup) 30 ml PO ONETIME ONE Stop: 06/13/21 06:01 Last Admin: 06/13/21 06:18 Dose: 30 ml Documented by: Magnesium Hydroxide (Magnesium Hydroxide 400 Mg/5 Ml Susp 30 Ml Cup) 30 ml PO ONETIME ONE Stop: 06/22/21 13:01 Last Admin: 06/22/21 13:04 Dose: 30 ml Documented by: Metformin HCl (Metformin 500 Mg Tab) 1,000 mg PO BIDMEALS [facility] Last Admin: 06/11/21 06:06 Dose: 1,000 mg Documented by: Morphine Sulfate (Morphine 2 Mg/Ml Syringe) 2 mg IVPUSH Q2H PRN PRN Reason: Pain (severe 7-10) Stop: 06/11/21 07:46 Non-Formulary Medication (Tresiba) 24 units SQ ONETIME ONE Stop: 06/10/21 03:46 Last Admin: 06/10/21 03:45 Dose: 24 units Documented by: Carbidopa/Levodopa 25-250 Tab Own Med 1 tab PO 0600,1100,1500,1900,2300 [facility] Last Admin: 06/11/21 05:29 Dose: 1 tab Documented by: Non-Formulary Medication (Sitagliptin Phos/Metformin Hcl [Janumet 50-1,000 Mg]) 1 tab PO BID [facility] Non-Formulary Medication (Non-Formulary Medication 1 Each) 1 each PO BID [facility] Pantoprazole Sodium (Pantoprazole 40 Mg Vial) 80 mg IVPUSH BOLUS ONE Stop: 06/16/21 07:05 Last Admin: 06/16/21 08:03 Dose: 80 mg Documented by: Sodium Chloride (Sodium Chloride 0.9% 10 Ml Syringe) 10 ml FLUSH ONETIME PRN PRN Reason: IV FLUSH Stop: 06/13/21 13:00 Trospium (Trospium 20 Mg Tab) 10 mg PO BID [facility] Last Admin: 06/10/21 21:03 Dose: 10 mg Documented by: - Exam Urinary Catheter Total Time: 1Days 9Hours - Patient Data Lab Results Last 24 hrs: Laboratory Results - last 24 hr 06/25/21 06/25/21 06/25/21 Range/Units 06:20 10:35 18:25 WBC (4.23-9.07) K/mm3 RBC (4.63-6.08) M/mm3 Hgb (13.7-17.5) gm/dl Hct (40.1-51.0) % MCV (79.0-92.2) fl MCH (25.7-32.2) pg MCHC (32.2-35.5) g/dl RDW Std Deviation (35.1-43.9) fL Plt Count (163-337) K/mm3 MPV (9.4-12.3) fl Neut % (Auto) (34.0-67.9) % Lymph % (Auto) (21.8-53.1) % [place] % (Auto) (5.3-12.2) % Eos % (Auto) (0.8-7.0) Baso % (Auto) (0.1-1.2) % Neut # (Auto) (1.78-5.38) K/mm3 Lymph # (Auto) (1.32-3.57) K/mm3 [place] # (Auto) (0.30-0.82) K/mm3 Eos # (Auto) (0.04-0.54) K/mm3 Baso # (Auto) (0.01-0.08) K/mm3 Sodium 140 (136-145) mEq/L Potassium 4.5 (3.5-5.1) mEq/L Chloride 102 (98-107) mEq/L Carbon Dioxide 31 (21-32) mEq/L Anion Gap 11.5 (5-15) BUN 36 H (7-18) mg/dL Creatinine 0.8 (0.7-1.3) mg/dL Est Cr Clr Drug Dosing 97.04 mL/min Estimated GFR (MDRD) > 60 (>60) mL/min BUN/Creatinine Ratio 45.0 H (14-18) Glucose 180 H (70-99) mg/dL POC Glucose 264 H 385 H (70-99) mg/dL Calcium 8.8 (8.5-10.1) mg/dL Total Bilirubin 0.6 (0.2-1.0) mg/dL AST 11 L (15-37) U/L ALT 11 L (16-63) U/L Alkaline Phosphatase 50 (46-116) U/L C-Reactive Protein 0.3 (<1.0) mg/dL Total Protein 6.0 L (6.4-8.2) g/dl Albumin 2.6 L (3.4-5.0) g/dl Globulin 3.4 gm/dL Albumin/Globulin Ratio 0.8 L (1-2) 06/25/21 06/26/21 06/26/21 Range/Units 22:15 07:07 07:09 WBC 16.10 H (4.23-9.07) K/mm3 RBC 4.31 L (4.63-6.08) M/mm3 Hgb 13.2 L (13.7-17.5) gm/dl Hct 41.3 (40.1-51.0) % MCV 95.8 H (79.0-92.2) fl MCH 30.6 (25.7-32.2) pg MCHC 32.0 L (32.2-35.5) g/dl RDW Std Deviation 48.4 H (35.1-43.9) fL Plt Count 226 (163-337) K/mm3 MPV 10.2 (9.4-12.3) fl Neut % (Auto) 86.6 H (34.0-67.9) % Lymph % (Auto) 6.5 L (21.8-53.1) % [place] % (Auto) 6.0 (5.3-12.2) % Eos % (Auto) 0.2 L (0.8-7.0) Baso % (Auto) 0.1 (0.1-1.2) % Neut # (Auto) 13.93 H (1.78-5.38) K/mm3 Lymph # (Auto) 1.05 L (1.32-3.57) K/mm3 [place] # (Auto) 0.97 H (0.30-0.82) K/mm3 Eos # (Auto) 0.04 (0.04-0.54) K/mm3 Baso # (Auto) 0.01 (0.01-0.08) K/mm3 Sodium (136-145) mEq/L Potassium (3.5-5.1) mEq/L Chloride (98-107) mEq/L Carbon Dioxide (21-32) mEq/L Anion Gap (5-15) BUN (7-18) mg/dL Creatinine (0.7-1.3) mg/dL Est Cr Clr Drug Dosing mL/min Estimated GFR (MDRD) (>60) mL/min BUN/Creatinine Ratio (14-18) Glucose (70-99) mg/dL POC Glucose 197 H 193 H (70-99) mg/dL Calcium (8.5-10.1) mg/dL Total Bilirubin (0.2-1.0) mg/dL AST (15-37) U/L ALT (16-63) U/L Alkaline Phosphatase (46-116) U/L C-Reactive Protein (<1.0) mg/dL Total Protein (6.4-8.2) g/dl Albumin (3.4-5.0) g/dl Globulin gm/dL Albumin/Globulin Ratio (1-2) Result Diagrams: 06/26/21 07:09 06/25/21 06:20 Sepsis Event Note - Evaluation Sepsis Screening Result: No Definite Risk - Focused Exam Vital Signs: Vital Signs Temp Pulse Resp BP Pulse Ox Pulse Ox 06/26/21 05:50 98 06/26/21 03:24 97.5 F 59 L 18 145/82 H 96 06/25/21 22:13 98.2 F 61 16 150/81 H 97 06/25/21 20:31 95 - Problem List & Annotations (1) Acute respiratory failure due to COVID-19 SNOMED Code(s): 790371635 Code(s): U07.1 - COVID-19; J96.00 - ACUTE RESPIRATORY FAILURE, UNSP W HYPOXIA OR HYPERCAPNIA Status: Acute Priority: High Current Visit: Yes (2) Pneumonia due to COVID-19 virus SNOMED Code(s): 959241681120014495 Code(s): U07.1 - COVID-19; J12.82 - PNEUMONIA DUE TO CORONAVIRUS DISEASE 2019 Status: Acute Priority: High Current Visit: Yes (3) Diabetes mellitus type 2 in nonobese SNOMED Code(s): 533776323 Code(s): E11.9 - TYPE 2 DIABETES MELLITUS WITHOUT COMPLICATIONS Status: Chr onic Priority: High Current Visit: Yes (4) Parkinson's disease dementia SNOMED Code(s): 001420321343668 Code(s): G20 - PARKINSON'S DISEASE; F02.80 - DEMENTIA IN OTH DISEASES CLASSD ELSWHR W/O BEHAVRL DISTURB Status: Chronic Priority: High Current Visit: Yes Qualifiers: Dementia behavioral disturbance: without behavioral disturbance Qualified Code(s): G20 - Parkinson's disease; F02.80 - Dementia in other diseases classified elsewhere without behavioral disturbance (5) Elevated C-reactive protein (CRP) SNOMED Code(s): 778393468853081 Code(s): R79.82 - ELEVATED C-REACTIVE PROTEIN (CRP) Status: Acute Priority: High Current Visit: Yes (6) Elevated d-dimer SNOMED Code(s): 347404806 Code(s): R79.89 - OTHER SPECIFIED ABNORMAL FINDINGS OF BLOOD CHEMISTRY Status: Acute Priority: High Current Visit: Yes (7) Elevated procalcitonin SNOMED Code(s): 273908061, 630069991 Code(s): R79.89 - OTHER SPECIFIED ABNORMAL FINDINGS OF BLOOD CHEMISTRY Status: Resolved Priority: High Current Visit: Yes (8) GI bleed SNOMED Code(s): 12191620 Code(s): K92.2 - GASTROINTESTINAL HEMORRHAGE, UNSPECIFIED Status: Resolved Priority: Medium Current Visit: Yes Qualifiers: GI bleed type/associated pathology: unspecified gastrointestinal hemorrhage type Qualified Code(s): K92.2 - Gastrointestinal hemorrhage, unspecified (9) Aspiration into airway SNOMED Code(s): 020591015 Code(s): T17.908A - UNSP FB IN RESP TRACT, PART UNSP CAUSING OTH INJURY, INIT Status: Suspected Priority: High Current Visit: Yes Qualifiers: Encounter type: initial encounter Qualified Code(s): T17.908A - Unspecified foreign body in respiratory tract, part unspecified causing other injury, initial encounter - My Orders Last 24 Hours: My Active Orders 06/25/21 17:00 Insulin Lispro [HumaLOG] 0 unit SUBCUT QIDACANDBED - Assessment Assessment:: 06/22/2021 71-year-old male who was admitted to the floor due to Covid pneumonia. Patient did complete remdesivir treatment and is currently receiving dexamethasone. He was on oxygen at 4 L per nasal cannula this morning however respiratory therapy did have to increase him to 5 L. Chest x-ray was completed today.Radiologist impression portable view of the chest comparison to prior chest x-ray of 06/20/2021: Diffuse increased density is seen within the right chest. Lesser density within the left chest is seen. Heart size is normal. Upper mediastinum is stable. No acute change within the osseous structures is seen. Impression: 1. Worsening density within both sides of the chest, greater on the right side. Findings are compatible with worsening Covid pneumonia. However, patient denies worsening shortness of breath. Lung sounds continue to have crackles noted bilaterally. Patient continues on a heparin drip for DVT prophylaxis as throughout his stay here he did have a noted GI bleed. Coffee-ground emesis was noted and is questionable whether or not the patient aspirated. Patient did receive IV Zosyn to treat this and this course has been completed. He remains afebrile and there are no signs of worsening infection. Labs today revealWBC of 10.39, hemoglobin 13.1, hematocrit 41.6, platelet count 199, PTT 56.2, D-dimer 5.22, sodium 140, potassium 4.3, carbon dioxide 34, anion gap 8.3, BUN 24, creatinine 0.9, GFR greater than 60, ferritin 1931, C-reactive protein 1.4. Elevation in WBC likely due to dexamethasone for treatment of Covid. Patient continues to receive sliding scale insulin and 4 times daily Accu-Cheks. Unknown length of stay due to the severity of symptoms. - Plan Plan:: Assessment: Acute hypoxic respiratory failure secondary to Covid 19 pneumonitis Acute COVID-19 Diabetes mellitus. 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 Plan: Remains status quo. Continue Covid protocol and conventional therapies - baricitinib 4 mg daily, dexamethasone 6 mg daily, Lovenox 100 mg twice daily RT consult with supplemental oxygen with titration as necessary. Lovenox 100mg bid for hypercoagulable prophylaxis, meanwhile being mindful of any new GI bleeding. Glucose control with hyperglycemia protocol with expected higher sugars due to steroids. Hypotension noted today after addition of amlodipine yesterday. Patient was symptomatic with this and complained of dizziness with standing or ambulation. Will discontinue amlodipine. CODE STATUS: Full code. DVT prophylaxis: lovenox LOS greater than 96 hours because of the slow response to treatment
[2021-06-26] MEDS ORDERED: Dexamethasone 4 MG Tab PO SCH (09:00)
--- NOTE | 2021-06-26 09:51 | PCM.DCSUM1 ---
Discharge Summary - Hospital Course HPI Initial Comments: The patient is a 71-year-old gentleman who was admitted to acute hospitalization secondary to acute respiratory failure due to COVID-19 pneumonia. The patient has some confusion and he is not alert to place or time. He has been unable to participate in his history and physical. Family members are not available. History was obtained through his previous medical records. Initially on presentation to the emergency department the patient was noted to be hypoxic and speaking in 1 word sentences. The patient had been weak and feverish and he had been shaking at one point. He did not have COVID-19 vaccine. The patient has been taking medication for diabetes mellitus and what appears to be Parkinson's disease. Diagnosis: Stroke: No - Discharge Data Discharge Date: 06/26/21 (Admit date: 06/10/2021) Discharge Disposition: Home, Self-Care 01 Condition: - Referral to Home Health Primary Care Physician: Juan José Montiel MD - Discharge Diagnosis/Problem(s) (1) Acute respiratory failure due to COVID-19 SNOMED Code(s): 276886194 ICD Code: U07.1 - COVID-19; J96.00 - ACUTE RESPIRATORY FAILURE, UNSP W HYPOXIA OR HYPERCAPNIA Status: Acute Priority: High Current Visit: Yes (2) Pneumonia due to COVID-19 virus SNOMED Code(s): 106939066292235488 ICD Code: U07.1 - COVID-19; J12.82 - PNEUMONIA DUE TO CORONAVIRUS DISEASE 2018 Status: Acute Priority: High Current Visit: Yes (3) Diabetes mellitus type 2 in nonobese SNOMED Code(s): 434758331 ICD Code: E11.9 - TYPE 2 DIABETES MELLITUS WITHOUT COMPLICATIONS Status: Chronic Priority: High Current Visit: Yes (4) Parkinson's disease dementia SNOMED Code(s): 753362029819770 ICD Code: G20 - PARKINSON'S DISEASE; F02.80 - DEMENTIA IN OTH DISEASES CLASSD ELSWHR W/O BEHAVRL DISTURB Status: Chronic Priority: High Current Visit: Yes Qualifiers: Dementia behavioral disturbance: without behavioral disturbance Qualified Code(s): G20 - Parkinson's disease; F02.80 - Dementia in other diseases classified elsewhere without behavioral disturbance (5) Elevated C-reactive protein (CRP) SNOMED Code(s): 386000877816025 ICD Code: R79.82 - ELEVATED C-REACTIVE PROTEIN (CRP) Status: Acute Priority: High Current Visit: Yes (6) Elevated d-dimer SNOMED Code(s): 019878646 ICD Code: R79.89 - OTHER SPECIFIED ABNORMAL FINDINGS OF BLOOD CHEMISTRY Status: Acute Priority: High Current Visit: Yes (7) Elevated procalcitonin SNOMED Code(s): 080822796, 435501434 ICD Code: R79.89 - OTHER SPECIFIED ABNORMAL FINDINGS OF BLOOD CHEMISTRY Status: Resolved Priority: High Current Visit: Yes (8) GI bleed SNOMED Code(s): 10272399 ICD Code: K92.2 - GASTROINTESTINAL HEMORRHAGE, UNSPECIFIED Status: Resolved Priority: Medium Current Visit: Yes Qualifiers: GI bleed type/associated pathology: unspecified gastrointestinal hemorrhage type Qualified Code(s): K92.2 - Gastrointestinal hemorrhage, unspecified (9) Aspiration into airway SNOMED Code(s): 931102987 ICD Code: T17.908A - UNSP FB IN RESP TRACT, PART UNSP CAUSING OTH INJURY, INIT Status: Resolved Priority: High Current Visit: Yes Qualifiers: Encounter type: initial encounter Qualified Code(s): T17.908A - Unspecified foreign body in respiratory tract, part unspecified causing other injury, initial encounter - Patient Summary/Data Consults: Consultations 06/10/21 11:16 OT Evaluation and Treatment [CONS] Routine PT Evaluation and Treatment [CONS] Routine 06/11/21 10:30 Consult to Respiratory Therapy [Respiratory Care Assess and Treatment] [CONS] Routine 06/11/21 10:32 Consult to Case Management/Manager Content [CONS] Routine Labs Pending at D/C: None Recommended Follow-up Testing/Procedures: Recommend follow-up with primary care provider within 5 to 7 days of discharge, sooner if needed.\ * Patient discharged on steroid taper of 4 mg dexamethasone for 3 days and then 2 mg dexamethasone for 3 days. * Patient instructed to continue to utilize incentive spirometry and Acapella for 2 more weeks. * Patient and family refused SNF placement for rehab stay. Patient discharged home. * No home health care services available currently due to staffing. Patient will have outpatient PT and OT * Patient discharged on 40 mg twice daily Protonix * Patient also discharged on 100 mg twice daily Lovenox. PCP may determine when patient may discontinue this. * Patient qualified for 4 L of continuous oxygen via nasal cannula. Please monitor and wean appropriately * All other home medications continued. Consider pulmonology follow-up outpatient. Hospital Course: This is a 71-year-old male admitted to the floor for treatment of pneumonia secondary to COVID-19. He was noted to be very confused in the ED and this did resolve once he was on the floor. Unfortunately had a rather long and somewhat complex stay. He was started on dexamethasone after some discussion with the family remdesivir was started as well. D-dimer admission was noted to be elevated and multiple CTA scans were obtained showing no PE. Lower extremity ultrasound was also obtained and was negative. Throughout his stay his D-dimer did continue to climb getting as high as 25 and patient was ultimately started on therapeutic Lovenox of 1 mg/kg twice daily. At his worst he was requiring 50 L of high flow oxygen with FiO2 of 70%. Baricitinib was started and he did complete his last dose today prior to discharge. Family requested zinc, vitamin C, and vitamin D supplementation as the patient had reportedly been taking that prior. Unfortunately patient was noted to have an episode of bloody emesis and therefore his Lovenox was discontinued. He was transferred to the ICU and there was some question about whether or not he did aspirate. This was never seen radiographically although it could have been skewed due to the significance of his COVID-19 pneumonia. Patient completed treatment of Zosyn for this possible aspiration nonetheless. He was later transitioned to a heparin drip and ultimately back to 1 mg/kg twice daily Lovenox as his D-dimer remained relatively high and he remained high risk for blood clots. Prior to discharge D-dimer was noted to be 2.48. Unfortunately patient was quite deconditioned while here and he did work with our physical therapy and occupational therapy departments. We have been recommending a SNF rehab stay however the patient and family are adamant about taking the patient home. Unfortunately due to staffing issues home health care services are not available either. Patient will therefore be discharged home with outpatient PT and OT. Family is aware of patient's significant medical needs and agrees to provide 24/7 cares. Family was notified that they may contact any of the local long-term facilities for admission should they deem it necessary. Ultimately patient was weaned down to 4 L of oxygen at all times. He continues to utilize his incentive spirometer and Acapella. He will be discharged home on a stepdown steroid therapy which will include for 3 more days of 4 mg dexamethasone followed by 3 days of 2 mg dexamethasone. We will continue 1 mg/kg or 100 mg twice daily of Lovenox twice daily subcutaneous for the next 3 weeks or until primary care provider deems patient may discontinue this. We will also continue 40 mg twice daily Protonix due to the patient's steroid and prior GI bleed. Patient is a diabetic and is aware that his blood glucose readings may be quite elevated while he comes off of his steroid. Family was heavily involved in his care throughout his stay. He discharged home today. All other home medications were continued. - Patient Instructions Diet: Diabetic Diet Activity: As Tolerated, No Strenuous Activities, Rest and Relax Today Driving: Do Not Drive Showering/Bathing: May Shower Notify Provider of: Fever, Nausea and/or Vomiting Other/Special Instructions: Follow-up with primary care provider within 5 to 7 days of discharge, sooner if needed. You will be prescribed a steroid taper at discharge. Take 4 mg or 2 tablets daily for 3 days and then 2 mg or 1 tablet daily for 3 days. Your labs indicate you are still at very high risk for blood clots. Because of this you should inject one 100mg syringe of lovenox every 12 hours. You can discuss with your primary care provider in the future if this is something you need to continue. Because of your recent GI bleed and your steroid use you will be prescribed a proton pump inhibitor (PPI) that you should take twice a day as prescribed to protect your stomach. Continue to utilize your incentive spirometer (clear/blue device you inhale through) and Acapella (tube you blow through) for 1 to 2 weeks or until symptoms resolve. You may continue your home vitamin D, vitamin C, and zinc supplementation as prior. Check your blood glucose readings as per your prior routine. Be aware you will likely have elevated blood glucose readings well you taper off of your steroid. Continue to wear home oxygen as directed. You should wear 4 L at all times via nasal cannula. As we discussed due to your weakness and difficulty with ambulation we are recommending long-term facility placement. You and your family have indicated this is something you would would not like to pursue. Should you change your mind you may contact any of the facilities locally directly for admission. Continue outpatient physical therapy and Occupational Therapy for strengthening. Should symptoms return or worsen contact your primary care provider or return to the emergency room. - Discharge Plan *PRESCRIPTION DRUG MONITORING PROGRAM REVIEWED*: No *COPY OF PRESCRIPTION DRUG MONITORING REPORT IN PATIENT DUYEN: No Prescriptions/Med Rec: dexAMETHasone [Dexamethasone] 2 mg PO ASDIRECTED #9 tab Enoxaparin [Lovenox] 100 mg SUBCUT Q12H #42 syringe Pantoprazole [ProTONIX] 40 mg PO BIDAC #40 tab.cr Home Medications: Home Meds Glimepiride 2 mg PO DAILY 03/08/15 [History] Finasteride [Proscar] 5 mg PO DAILY 05/14/18 [History] Insulin Degludec [Tresiba] 24 unit SQ BEDTIME 06/09/21 [History] Carbidopa/Levodopa [Carbidopa-Levodopa 25-250] 1 tab PO 5XDAY 06/10/21 [History] Levothyroxine [Synthroid] 50 mcg PO DAILY 06/10/21 [History] Solifenacin Succinate 10 mg PO DAILY 06/10/21 [History] Tamsulosin [Flomax] 0.4 mg PO BEDTIME 06/10/21 [History] sitaGLIPtin Phos/Metformin HCl [Janumet 50-1,000 MG] 1 each PO BID 06/10/21 [History] Enoxaparin [Lovenox] 100 mg SUBCUT Q12H #42 syringe 06/26/21 [Rx] Pantoprazole [ProTONIX] 40 mg PO BIDAC #40 tab.cr 06/26/21 [Rx] dexAMETHasone [Dexamethasone] 2 mg PO ASDIRECTED #9 tab 06/26/21 [Rx] Oxygen Therapy Mode: Nasal Cannula Oxygen Flow Rate (L/min): 4 Patient Handouts: COVID-19 Frequently Asked Questions, COVID-19, 10 Things You Can Do to Manage Your COVID-19 Symptoms at Home - [facility] (02/23/2021) Forms: ED Department Discharge Referrals: Juan José Montiel MD [Primary Care Provider] - 07/03/21 8:30 am (You will follow up with Dr. Benitez since Dr. Montiel is out of the office, Please arrive at 8:30 for check in.) - Discharge Summary/Plan Comment DC Time >30 min.: Yes Total # of Minutes for Discharge Time: 45 - General Info Date of Service: 06/26/21 Admission Dx/Problem (Free Text: Admission Diagnosis/Problem Admission Diagnosis/Problem acute respiratory failure due to COVID-19 pneumonia. Functional Status: Reports: Pain Controlled, Tolerating Diet, Ambulating, Urinating, Incentive Spirometry, Other (Acapella ). Denies: New Symptoms - Review of Systems General: Reports: Weakness. Denies: Fever, Fatigue, Malaise, Chills HEENT: Reports: No Symptoms. Denies: Headaches, Sore Throat Pulmonary: Reports: Shortness of Breath. Denies: Pleuritic Chest Pain, Cough, Sputum, Wheezing Cardiovascular: Reports: Dyspnea on Exertion. Denies: Chest Pain, Palpitations, Edema, Lightheadedness Gastrointestinal: Reports: No Symptoms. Denies: Abdominal Pain, Constipation, Diarrhea, Nausea, Vomiting Genitourinary: Reports: No Symptoms. Denies: Pain Musculoskeletal: Reports: Joint Pain (bilateral knees - chronic ) Skin: Reports: No Symptoms. Denies: Cyanosis Neurological: Reports: Pre-Existing Deficit (Baseline Parkinson's), Difficulty Walking, Weakness, Gait Disturbance. Denies: Confusion, Dizziness, Headache, Numbness, Paresthesia, Seizure, Syncope, Tingling, Tremors, Trouble Speaking, Change in Speech Psychiatric: Reports: No Symptoms - Patient Data Vitals - Most Recent: Last Vital Signs Temp 98.1 F 06/26/21 07:51 Pulse 78 06/26/21 07:51 Resp 17 06/26/21 07:51 BP 117/62 06/26/21 07:51 Pulse Ox 90 L 06/26/21 07:51 Weight - Most Recent: 233 lb 9.6 oz I&O - Last 24 hours: Intake & Output 06/25/21 06/26/21 06/26/21 22:59 06:59 14:59 Intake Total 1600 600 Balance 1600 600 Lab Results - Last 24 hrs: Laboratory Results - last 24 hr 06/25/21 06/25/21 06/25/21 Range/Units 10:35 18:25 22:15 WBC (4.23-9.07) K/mm3 RBC (4.63-6.08) M/mm3 Hgb (13.7-17.5) gm/dl Hct (40.1-51.0) % MCV (79.0-92.2) fl MCH (25.7-32.2) pg MCHC (32.2-35.5) g/dl RDW Std Deviation (35.1-43.9) fL Plt Count (163-337) K/mm3 MPV (9.4-12.3) fl Neut % (Auto) (34.0-67.9) % Lymph % (Auto) (21.8-53.1) % [place] % (Auto) (5.3-12.2) % Eos % (Auto) (0.8-7.0) Baso % (Auto) (0.1-1.2) % Neut # (Auto) (1.78-5.38) K/mm3 Lymph # (Auto) (1.32-3.57) K/mm3 [place] # (Auto) (0.30-0.82) K/mm3 Eos # (Auto) (0.04-0.54) K/mm3 Baso # (Auto) (0.01-0.08) K/mm3 D-Dimer, Quantitative (0.19-0.50) mg/L Sodium (136-145) mEq/L Potassium (3.5-5.1) mEq/L Chloride (98-107) mEq/L Carbon Dioxide (21-32) mEq/L Anion Gap (5-15) BUN (7-18) mg/dL Creatinine (0.7-1.3) mg/dL Est Cr Clr Drug Dosing mL/min Estimated GFR (MDRD) (>60) mL/min BUN/Creatinine Ratio (14-18) Glucose (70-99) mg/dL POC Glucose 264 H 385 H 197 H (70-99) mg/dL Calcium (8.5-10.1) mg/dL Total Bilirubin (0.2-1.0) mg/dL AST (15-37) U/L ALT (16-63) U/L Alkaline Phosphatase (46-116) U/L C-Reactive Protein (<1.0) mg/dL Total Protein (6.4-8.2) g/dl Albumin (3.4-5.0) g/dl Globulin gm/dL Albumin/Globulin Ratio (1-2) 06/26/21 06/26/21 06/26/21 Range/Units 07:07 07:09 07:09 WBC 16.10 H (4.23-9.07) K/mm3 RBC 4.31 L (4.63-6.08) M/mm3 Hgb 13.2 L (13.7-17.5) gm/dl Hct 41.3 (40.1-51.0) % MCV 95.8 H (79.0-92.2) fl MCH 30.6 (25.7-32.2) pg MCHC 32.0 L (32.2-35.5) g/dl RDW Std Deviation 48.4 H (35.1-43.9) fL Plt Count 226 (163-337) K/mm3 MPV 10.2 (9.4-12.3) fl Neut % (Auto) 86.6 H (34.0-67.9) % Lymph % (Auto) 6.5 L (21.8-53.1) % [place] % (Auto) 6.0 (5.3-12.2) % Eos % (Auto) 0.2 L (0.8-7.0) Baso % (Auto) 0.1 (0.1-1.2) % Neut # (Auto) 13.93 H (1.78-5.38) K/mm3 Lymph # (Auto) 1.05 L (1.32-3.57) K/mm3 [place] # (Auto) 0.97 H (0.30-0.82) K/mm3 Eos # (Auto) 0.04 (0.04-0.54) K/mm3 Baso # (Auto) 0.01 (0.01-0.08) K/mm3 D-Dimer, Quantitative (0.19-0.50) mg/L Sodium 137 (136-145) mEq/L Potassium 4.6 (3.5-5.1) mEq/L Chloride 100 (98-107) mEq/L Carbon Dioxide 32 (21-32) mEq/L Anion Gap 9.6 (5-15) BUN 36 H (7-18) mg/dL Creatinine 0.8 (0.7-1.3) mg/dL Est Cr Clr Drug Dosing 97.04 mL/min Estimated GFR (MDRD) > 60 (>60) mL/min BUN/Creatinine Ratio 45.0 H (14-18) Glucose 192 H (70-99) mg/dL POC Glucose 193 H (70-99) mg/dL Calcium 8.7 (8.5-10.1) mg/dL Total Bilirubin 0.6 (0.2-1.0) mg/dL AST 14 L (15-37) U/L ALT 9 L (16-63) U/L Alkaline Phosphatase 47 (46-116) U/L C-Reactive Protein 1.3 H* (<1.0) mg/dL Total Protein 5.9 L (6.4-8.2) g/dl Albumin 2.4 L (3.4-5.0) g/dl Globulin 3.5 gm/dL Albumin/Globulin Ratio 0.7 L (1-2) 06/26/21 Range/Units 07:09 WBC (4.23-9.07) K/mm3 RBC (4.63-6.08) M/mm3 Hgb (13.7-17.5) gm/dl Hct (40.1-51.0) % MCV (79.0-92.2) fl MCH (25.7-32.2) pg MCHC (32.2-35.5) g/dl RDW Std Deviation (35.1-43.9) fL Plt Count (163-337) K/mm3 MPV (9.4-12.3) fl Neut % (Auto) (34.0-67.9) % Lymph % (Auto) (21.8-53.1) % [place] % (Auto) (5.3-12.2) % Eos % (Auto) (0.8-7.0) Baso % (Auto) (0.1-1.2) % Neut # (Auto) (1.78-5.38) K/mm3 Lymph # (Auto) (1.32-3.57) K/mm3 [place] # (Auto) (0.30-0.82) K/mm3 Eos # (Auto) (0.04-0.54) K/mm3 Baso # (Auto) (0.01-0.08) K/mm3 D-Dimer, Quantitative 2.48 H (0.19-0.50) mg/L Sodium (136-145) mEq/L Potassium (3.5-5.1) mEq/L Chloride (98-107) mEq/L Carbon Dioxide (21-32) mEq/L Anion Gap (5-15) BUN (7-18) mg/dL Creatinine (0.7-1.3) mg/dL Est Cr Clr Drug Dosing mL/min Estimated GFR (MDRD) (>60) mL/min BUN/Creatinine Ratio (14-18) Glucose (70-99) mg/dL POC Glucose (70-99) mg/dL Calcium (8.5-10.1) mg/dL Total Bilirubin (0.2-1.0) mg/dL AST (15-37) U/L ALT (16-63) U/L Alkaline Phosphatase (46-116) U/L C-Reactive Protein (<1.0) mg/dL Total Protein (6.4-8.2) g/dl Albumin (3.4-5.0) g/dl Globulin gm/dL Albumin/Globulin Ratio (1-2) Med Orders - Current: Current Medications Acetaminophen (Acetaminophen 325 Mg Tab) 650 mg PO Q8H [facility] Last Admin: 06/26/21 05:32 Dose: 650 mg Documented by: Al Hydroxide/Mg Hydroxide (Aluminum Hydroxide/Magnesium Hydroxide/Simethicone Susp 30 Ml Cup) 30 ml PO Q4H PRN PRN Reason: Heartburn Last Admin: 06/14/21 21:37 Dose: 30 ml Documented by: Albuterol (Albuterol 6.7 Gm Inhaler) 0 gm INH QID PRN PRN Reason: SOB/Wheezing Last Admin: 06/25/21 20:31 Dose: 2 puff Documented by: Albuterol/Ipratropium (Albuterol/Ipratropium 3.0-0.5 Mg/3 Ml Neb Soln) 3 ml NEB Q4H PRN PRN Reason: Shortness Of Breath/wheezing Last Admin: 06/22/21 08:33 Dose: 3 ml Documented by: Alogliptin Benzoate (Alogliptin 12.5 Mg Tab) 12.5 mg PO BIDMEALS [facility] Last Admin: 06/26/21 06:00 Dose: Not Given Documented by: Ascorbic Acid (Ascorbic Acid 500 Mg Tab) 500 mg PO DAILY [facility] Last Admin: 06/25/21 09:08 Dose: 500 mg Documented by: Dexamethasone (Dexamethasone 4 Mg Tab) 4 mg PO DAILY [facility] Docusate Sodium (Docusate Sodium 100 Mg Cap) 100 mg PO BID PRN PRN Reason: Constipation Last Admin: 06/14/21 12:07 Dose: 100 mg Documented by: Enoxaparin Sodium (Enoxaparin 100 Mg/1 Ml Syringe) 100 mg SUBCUT Q12H [facility] Last Admin: 06/25/21 22:18 Dose: 100 mg Documented by: Finasteride (Finasteride 5 Mg Tab) 5 mg PO DAILY [facility] Last Admin: 06/25/21 09:08 Dose: 5 mg Documented by: Guaifenesin/Phenylephrine HCl (Guaifenesin/Dextromethorphan 100-10 Mg/5 Ml Soln 5 Ml Cup) 10 ml PO Q6H PRN PRN Reason: Cough Insulin Glargine (Insulin Glargine,Hum.Rec.Anlog 100 Unit/Ml 3 Ml Pen) 30 unit SUBCUT BEDTIME [facility] Last Admin: 06/25/21 22:17 Dose: 30 units Documented by: Insulin Human Lispro (Insulin Lispro 100 Unit/Ml 3 Ml Kwikpen) 6 unit SUBCUT ONETIME ONE Stop: 06/26/21 17:01 Insulin Human Lispro (Insulin Lispro 100 Unit/Ml 3 Ml Kwikpen) 0 unit SUBCUT QIDACANDBED [facility]; Protocol Last Admin: 06/25/21 22:16 Dose: 3 units Documented by: Levothyroxine Sodium (Levothyroxine 50 Mcg Tab) 50 mcg PO ACBREAKFAST [facility] Last Admin: 06/26/21 05:32 Dose: 50 mcg Documented by: Melatonin (Melatonin 3 Mg Tab) 6 mg PO BEDTIME [facility] Last Admin: 06/25/21 22:18 Dose: 6 mg Documented by: Carbidopa/Levodopa 25-250 Tab Own Med 1 tab PO 0600,1100,1500,1900,2300 [facility] Last Admin: 06/26/21 05:32 Dose: 1 tab Documented by: Ondansetron HCl (Ondansetron 4 Mg Tab.Dis) 4 mg PO Q4H PRN PRN Reason: nausea, able to take PO Oxycodone HCl (Oxycodone 5 Mg Tab) 5 mg PO Q4H PRN PRN Reason: Pain (moderate 4-6) Last Admin: 06/23/21 04:29 Dose: 5 mg Documented by: Pantoprazole Sodium (Pantoprazole 40 Mg Tab.Cr) 40 mg PO BIDAC [facility] Sodium Chloride (Sodium Chloride 0.9% 10 Ml Syringe) 10 ml FLUSH ASDIRECTED PRN PRN Reason: Keep Vein Open Last Admin: 06/10/21 00:24 Dose: 10 ml Documented by: Tamsulosin HCl (Tamsulosin 0.4 Mg Cap.Er) 0.4 mg PO BEDTIME [facility] Last Admin: 06/25/21 22:18 Dose: 0.4 mg Documented by: Temazepam (Temazepam 15 Mg Cap) 15 mg PO BEDTIME PRN PRN Reason: Sleep Last Admin: 06/25/21 22:18 Dose: 15 mg Documented by: Trolamine Salicylate (Trolamine Salicylate/Aloe Vera 10% Crm 85 Gm Tube) 1 gm TOP Q2H PRN PRN Reason: Pain (moderate 4-6) Last Admin: 06/22/21 11:23 Dose: 1 applic Documented by: Trospium (Trospium 20 Mg Tab) 20 mg PO BID [facility] Last Admin: 06/25/21 22:18 Dose: 20 mg Documented by: Zinc Sulfate (Zinc Sulfate 220 Mg Cap) 220 mg PO DAILY [facility] Last Admin: 06/25/21 09:08 Dose: 220 mg Documented by: Discontinued Medications Acetaminophen (Acetaminophen 325 Mg Tab) 975 mg PO NOW ONE Stop: 06/09/21 21:16 Last Admin: 06/09/21 21:41 Dose: 350 mg Documented by: Acetaminophen (Acetaminophen 650 Mg Supp) 650 mg RECTAL NOW ONE Stop: 06/09/21 21:52 Last Admin: 06/09/21 22:30 Dose: 650 mg Documented by: Acetaminophen (Acetaminophen 325 Mg Tab) 650 mg PO Q4H PRN PRN Reason: Pain (Mild 1-3)/fever Last Admin: 06/12/21 08:10 Dose: 650 mg Documented by: Acetaminophen (Acetaminophen 325 Mg Tab) 975 mg PO Q8HR [facility] Acetaminophen (Acetaminophen 325 Mg Tab) 650 mg PO Q8H [facility] Last Admin: 06/12/21 11:51 Dose: Not Given Documented by: Acetaminophen (Acetaminophen 325 Mg Tab) 650 mg PO Q8H [facility] Last Admin: 06/16/21 02:16 Dose: Not Given Documented by: Amlodipine Besylate (Amlodipine 2.5 Mg Tab) 2.5 mg PO DAILY [facility] Last Admin: 06/25/21 09:21 Dose: Not Given Documented by: Baricitinib (Baricitinib 2 Mg Tab) 4 mg PO DAILY [facility] Stop: 06/26/21 09:01 Last Admin: 06/25/21 09:08 Dose: 4 mg Documented by: Carbidopa/Levodopa (Carbidopa/Levodopa 25-100 Mg Tab) 1 tab PO QID [facility] Last Admin: 06/10/21 16:54 Dose: 1 tab Documented by: Dexamethasone (Dexamethasone 4 Mg/Ml 5 Ml Mdv) 6 mg IV ONETIME ONE Stop: 06/10/21 00:53 Last Admin: 06/10/21 01:31 Dose: 6 mg Documented by: Dexamethasone (Dexamethasone 4 Mg Tab) 6 mg PO DAILY [facility] Stop: 06/18/21 09:01 Last Admin: 06/12/21 08:55 Dose: 6 mg Documented by: Dexamethasone (Dexamethasone 4 Mg Tab) 6 mg PO BID [facility] Last Admin: 06/19/21 09:25 Dose: 6 mg Documented by: Dexamethasone (Dexamethasone 4 Mg Tab) 6 mg PO DAILY [facility] Last Admin: 06/25/21 09:08 Dose: 6 mg Documented by: Enoxaparin Sodium (Enoxaparin 40 Mg/0.4 Ml Syringe) 40 mg SUBCUT DAILY [facility] Last Admin: 06/14/21 10:24 Dose: 40 mg Documented by: Enoxaparin Sodium (Enoxaparin 100 Mg/1 Ml Syringe) 100 mg SUBCUT Q12H [facility] Last Admin: 06/15/21 22:00 Dose: 100 mg Documented by: Glimepiride (Glimepiride 2 Mg Tab) 4 mg PO DAILY [facility] Last Admin: 06/10/21 09:51 Dose: 4 mg Documented by: Glimepiride (Glimepiride 2 Mg Tab) 2 mg PO WITHBREAKFAST [facility] Last Admin: 06/11/21 06:05 Dose: 2 mg Documented by: Sodium Chloride (Normal Saline) 1,000 mls @ 250 mls/hr IV ONETIME ONE Stop: 06/10/21 01:14 Last Infusion: 06/09/21 21:41 Dose: 250 mls/hr Documented by: Sodium Chloride (Normal Saline) Confirm Administered Dose 1,000 mls @ as directed .ROUTE .[facility] Stop: 06/09/21 21:19 Last Admin: 06/10/21 01:11 Dose: Not Given Documented by: Remdesivir 200 mg/ Sodium (Chloride) 250 mls @ 250 mls/hr IV ONETIME ONE Stop: 06/10/21 00:53 Last Admin: 06/10/21 01:47 Dose: 250 mls/hr Documented by: Remdesivir 100 mg/ Sodium (Chloride) 100 mls @ 100 mls/hr IV Q24H [facility] Stop: 06/13/21 21:59 Last Admin: 06/13/21 21:19 Dose: 100 mls/hr Documented by: Ceftriaxone Sodium 1 gm/ (Sodium Chloride) 100 mls @ 200 mls/hr IV Q24H [facility] Last Admin: 06/11/21 09:01 Dose: 200 mls/hr Documented by: Ceftriaxone Sodium 2 gm/ (Sodium Chloride) 100 mls @ 200 mls/hr IV Q24H [facility] Stop: 06/16/21 09:29 Last Admin: 06/15/21 09:19 Dose: 200 mls/hr Documented by: Azithromycin 500 mg/ Sodium (Chloride) 250 mls @ 250 mls/hr IV Q24H [facility] Stop: 06/14/21 08:59 Last Admin: 06/14/21 08:49 Dose: 250 mls/hr Documented by: Sodium Chloride (Normal Saline) 100 mls @ 75 mls/hr IV ASDIRECTED [facility] Stop: 06/13/21 13:00 Last Admin: 06/13/21 09:52 Dose: 75 mls/hr Documented by: Lactated Ringer's (Ringers, Lactated) 1,000 mls @ 150 mls/hr IV ASDIRECTED [facility] Last Admin: 06/16/21 06:45 Dose: 150 mls/hr Documented by: Lactated Ringer's (Ringers, Lactated) Confirm Administered Dose 1,000 mls @ as directed .ROUTE .STK-MED ONE Stop: 06/16/21 06:44 Last Admin: 06/16/21 08:07 Dose: Not Given Documented by: Piperacillin Sod/Tazobactam (Sod 4.5 gm/ Sodium Chloride) 100 mls @ 200 mls/hr IV ONETIME ONE Stop: 06/16/21 08:31 Last Admin: 06/16/21 09:13 Dose: 200 mls/hr Documented by: Piperacillin Sod/Tazobactam (Sod 4.5 gm/ Sodium Chloride) 100 mls @ 25 mls/hr IV Q8H [facility] Stop: 06/21/21 16:01 Last Admin: 06/21/21 15:00 Dose: 25 mls/hr Documented by: Lactated Ringer's (Ringers, Lactated) 1,000 mls @ 75 mls/hr IV ASDIRECTED [facility] Last Admin: 06/16/21 22:47 Dose: 75 mls/hr Documented by: Heparin Sodium/Dextrose (Heparin 25,000 Units In D5w 500 Ml) 25,000 units in 500 mls @ 26 mls/hr IV TITRATE [facility]; Protocol Last Admin: 06/22/21 20:10 Dose: 29.6 ml/hr, 29.6 mls/hr Documented by: Insulin Glargine (Insulin Glarg,Human.Rec.Analog 100 Unit/Ml) 24 unit SUBCUT BEDTIME [facility] Insulin Glargine (Insulin Glargine,Hum.Rec.Anlog 100 Unit/Ml 3 Ml Pen) 24 unit SUBCUT BEDTIME [facility] Last Admin: 06/10/21 21:05 Dose: 24 units Documented by: Insulin Glargine (Insulin Glargine,Hum.Rec.Anlog 100 Unit/Ml 3 Ml Pen) 28 unit SUBCUT BEDTIME [facility] Last Admin: 06/11/21 21:21 Dose: 28 units Documented by: Insulin Glargine (Insulin Glargine,Hum.Rec.Anlog 100 Unit/Ml 3 Ml Pen) 32 unit SUBCUT BEDTIME [facility] Last Admin: 06/19/21 21:29 Dose: 32 unit Documented by: Insulin Glargine (Insulin Glargine,Hum.Rec.Anlog 100 Unit/Ml 3 Ml Pen) 28 unit SUBCUT BEDTIME [facility] Last Admin: 06/24/21 21:09 Dose: 28 units Documented by: Insulin Human Isoph/Insulin Regular (Insulin Nph/Insulin Regular,Human 70-30 100 Units/Ml 10 Ml Vial) 0 units SUBCUT BIDAC [facility]; Protocol Last Admin: 06/10/21 02:36 Dose: Not Given Documented by: Insulin Human Lispro (Insulin Lispro 100 Unit/Ml 3 Ml Kwikpen) 0 unit SUBCUT QIDACANDBED [facility]; Protocol Last Admin: 06/10/21 12:15 Dose: Not Given Documented by: Insulin Human Regular (Insulin Regular, Human 100 Units/Ml 3 Ml Vial) 0 unit SUBCUT TIDPC [facility]; Protocol Last Admin: 06/12/21 09:12 Dose: 6 unit Documented by: Insulin Human Regular (Insulin Regular, Human 100 Units/Ml 3 Ml Vial) 0 unit SUBCUT QIDACANDBED [facility]; Protocol Last Admin: 06/25/21 11:30 Dose: 9 unit Documented by: Iopamidol (Iopamidol 755 Mg/Ml 100 Ml Bottle) 100 ml IVPUSH ONETIME ONE Stop: 06/09/21 23:54 Last Admin: 06/10/21 00:24 Dose: 100 ml Documented by: Iopamidol (Iopamidol 755 Mg/Ml 100 Ml Bottle) 100 ml IVPUSH ONETIME ONE Stop: 06/13/21 08:56 Last Admin: 06/13/21 09:52 Dose: 100 ml Documented by: Magnesium Hydroxide (Magnesium Hydroxide 400 Mg/5 Ml Susp 30 Ml Cup) 30 ml PO ONETIME ONE Stop: 06/13/21 06:01 Last Admin: 06/13/21 06:18 Dose: 30 ml Documented by: Magnesium Hydroxide (Magnesium Hydroxide 400 Mg/5 Ml Susp 30 Ml Cup) 30 ml PO ONETIME ONE Stop: 06/22/21 13:01 Last Admin: 06/22/21 13:04 Dose: 30 ml Documented by: Metformin HCl ([facility] 500 Mg Tab) [facility] Admin: 06/11/21 06:06 Dose: 1,000 mg Documented by: Morphine Sulfate (Morphine 2 Mg/Ml Syringe) 2 mg IVPUSH Q2H PRN PRN Reason: Pain (severe 7-10) Stop: 06/11/21 07:46 Non-Formulary Medication (Tresiba) 24 units SQ ONETIME ONE Stop: 06/10/21 03:46 Last Admin: 06/10/21 03:45 Dose: 24 units Documented by: Carbidopa/Levodopa 25-250 Tab Own Med 1 tab PO 0600,1100,1500,1900,2300 [facility] Last Admin: 06/11/21 05:29 Dose: 1 tab Documented by: Non-Formulary Medication (Sitagliptin Phos/Metformin Hcl [Janumet 50-1,000 Mg]) 1 tab PO BID [facility] Non-Formulary Medication (Non-Formulary Medication 1 Each) 1 each PO BID [facility] Pantoprazole Sodium (Pantoprazole 40 Mg Vial) 80 mg IVPUSH BOLUS ONE Stop: 06/16/21 07:05 Last Admin: 06/16/21 08:03 Dose: 80 mg Documented by: Sodium Chloride (Sodium Chloride 0.9% 10 Ml Syringe) 10 ml FLUSH ONETIME PRN PRN Reason: IV FLUSH Stop: 06/13/21 13:00 Trospium (Trospium 20 Mg Tab) 10 mg PO BID NALDO Last Admin: 06/10/21 21:03 Dose: 10 mg Documented by: - Exam Quality Assessment: Reports: Supplemental Oxygen (4L), DVT Prophylaxis. Denies: Urine Catheter General: Reports: Alert, Oriented, Cooperative, No Acute Distress HEENT: Reports: Pupils Equal, Pupils Reactive, Mucous Membr. Moist/[place] Neck: Reports: Supple, Trachea Midline Lungs: Reports: Normal Respiratory Effort, Decreased Breath Sounds (Improving), Crackles. Denies: Wheezing Cardiovascular: Reports: Regular Rate, Regular Rhythm GI/Abdominal Exam: Normal Bowel Sounds, Soft, Non-Tender, No Distention (Male) Exam: Deferred Rectal (Males) Exam: Deferred Back Exam: Reports: Normal Inspection, Decreased Range of Motion Extremities: Normal Inspection, Non-Tender, No Pedal Edema, Limited Range of Motion Skin: Reports: Warm, Dry, Intact Neurological: Reports: No New Focal Deficit Psy/Mental Status: Reports: Alert, Normal Affect, Normal Mood
[2021-06-26] MEDS: Enoxaparin 100 MG/1 ML Syringe SUBCUT SCH (09:59)
[2021-06-26] MEDS: Finasteride 5 MG Tab PO SCH (10:05)
[2021-06-26] MEDS: Ascorbic Acid 500 MG Tab PO SCH (10:05)
[2021-06-26] MEDS: Trospium 20 MG Tab PO SCH (10:05)
[2021-06-26] MEDS: Zinc Sulfate 220 MG Cap PO SCH (10:05)
[2021-06-26] MEDS: Insulin Lispro 100 Unit/ML 3 ML KwikPen SUBCUT SCH ×2 (10:07→12:14)
[2021-06-26] MEDS: oxyCODONE 5 MG Tab PO PRN (11:06)
[2021-06-26 12:53] VITALS: BP 131/66; PULSE 88
[2021-06-26] MEDS ORDERED: Pantoprazole 40 MG Tab.CR PO SCH (16:00)
[2021-06-26] MEDS ORDERED: Insulin Lispro 100 Unit/ML 3 ML KwikPen SUBCUT ONE (17:00)
== END 2021-06-26 15:10 | disposition home or self-care (01) | DRG 177 ==
LOC: JD.ED 20:37 → JD.MS 06-10 07:22 → JD.ICU 06-16 08:46 → JD.MS 06-17 09:39
PROVIDERS: ADMIT Internal Medicine; ATTEND Internal Medicine
PROC: 3E0333Z Introduction of Anti-inflammatory into Peripheral Vein, Percutaneous Approach (ICD-10-PCS; principal; 2021-06-10)
PROC: XW033E5 Introduction of Remdesivir Anti-infective into Peripheral Vein, Percutaneous Approach, New Technology Group 5 (ICD-10-PCS; 2021-06-10)
PROC: 3E0DX3Z Introduction of Anti-inflammatory into Mouth and Pharynx, External Approach (ICD-10-PCS; 2021-06-10)
PROC: XW0DXM6 Introduction of Baricitinib into Mouth and Pharynx, External Approach, New Technology Group 6 (ICD-10-PCS; 2021-06-13)
PROC: 5A0945A Assistance with Respiratory Ventilation, 24-96 Consecutive Hours, High Flow/Velocity Cannula (ICD-10-PCS; 2021-06-13)
DX: U07.1 COVID-19 (principal); J12.82 Pneumonia due to coronavirus disease 2019; J96.01 Acute respiratory failure with hypoxia; K92.2 Gastrointestinal hemorrhage, unspecified; G20 Parkinson's disease; F02.80 Dementia in other diseases classified elsewhere, unspecified severity, without behavioral disturbance, psychotic disturbance, mood disturbance, and anxiety; H91.93 Unspecified hearing loss, bilateral; R79.89 Other specified abnormal findings of blood chemistry; T17.908A Unspecified foreign body in respiratory tract, part unspecified causing other injury, initial encounter; E78.00 Pure hypercholesterolemia, unspecified; I10 Essential (primary) hypertension; G47.30 Sleep apnea, unspecified; N31.9 Neuromuscular dysfunction of bladder, unspecified; E11.9 Type 2 diabetes mellitus without complications; E03.9 Hypothyroidism, unspecified; M19.90 Unspecified osteoarthritis, unspecified site; H54.7 Unspecified visual loss; Z87.442 Personal history of urinary calculi; Z79.899 Other long term (current) drug therapy; Z79.4 Long term (current) use of insulin; Z79.890 Hormone replacement therapy
CPT/HCPCS: 36415; 36600; 71045; 71275; 80053; 82803; 82947 ×4; 83605; 83735; 85025; 85379; 85610; 85730; 86140; 87040 ×2; 93005; 94762 ×4; 96374; 99285; A9270 ×3; J1100; J1815; J7030; J7050; Q9967; U0002; 51702; 51798; 80048; 81001; 82306; 82553; 82728; 84100; 84145; 84484; 85014; 85018; 93970; 93970-26; 94640; 94667; 94668; 97110-GP; 97162-GP; 97165-GO; 97530-GO; 97530-GP; 99223; 99232; 99233; 99239; C9113; J0456; J0696; J1644; J1650; J2543; J7120; J7620-GY; J8540

== ENCOUNTER 2021-07-10 07:59 | Inpatient (IN) | payer MEDICARE, BC ==
[2021-07-10] MEDS ORDERED: Iopamidol 755 Mg/ML 100 ML Bottle IVPUSH ONE (09:02)
[2021-07-10] MEDS ORDERED: Sodium Chloride 0.9% 10 ML Syringe FLUSH ONE (09:02)
[2021-07-10] MEDS ORDERED: Sodium Chloride 0.9% 100 ML IV SCH (09:15)
--- NOTE | 2021-07-10 10:12 | CT ---
CT chest Technique: Multiple axial sections through the chest were obtained. Intravenous contrast was utilized. Study has been performed as a pulmonary angiogram protocol. Comparison: Prior CT chest study of 06/13/21 and chest x-ray of 06/25/21. Findings: Filling defects are seen within the distal main pulmonary arteries. Additional filling defects are seen which extend into the segmental branches and subsegmental branches within the left lower pulmonary artery. Thoracic aorta shows atherosclerotic change with no aneurysm. No mediastinal adenopathy is seen. No axillary adenopathy is noted. No pericardial thickening is seen. Small right-sided pleural effusion is noted. Visualized upper abdominal structures shows nothing acute. Diffuse parenchymal densities are seen within both lungs. This presumably is due to persisting COVID-19 pneumonia. Impression: 1. Pulmonary embolism are present within both pulmonary arteries and extending into the segmental and subsegmental branches of the left lower pulmonary artery. 2. Increased density within both lung bases presumably due to persisting COVID-19 pneumonia. 3. Small right-sided pleural effusion is seen. Diagnostic code #5
--- NOTE | 2021-07-10 10:38 | EDM.PDOC ---
ED HPI GENERAL MEDICAL PROBLEM - General Chief Complaint: Respiratory Problem Stated Complaint: LOW OXYGEN\\COUGH Time Seen by Provider: 07/10/21 08:39 Source of Information: Reports: Patient, Family, Old Records, RN Notes Reviewed - History of Present Illness INITIAL COMMENTS - FREE TEXT/NARRATIVE: 71 yr old male has been more short of breath the last 1 to 2 days. He has hx of covid about 1 month ago, had what sounds like a short hospitalization. Is now about 30 days out but has had lingering hypoxia, still on 2 L NC at home. This morning he had an episode of more severe shortness of breath, family member states his sats dropped into the 60's briefly, had some L chest pain with that which is now gone. No recent fever or chills. He was on lovenox while in the hospital and did go home with that. However the family member states he "had a GI bleed while in the hospital". His regular provider, Dr Benitez stopped his lovenox about 1 week ago. Bilateral Leg Pain Score (Numeric/FACES): 3 - Related Data Allergies Allergy/AdvReac Type Severity Reaction Status Date / Time No Known Allergies Allergy Verified 06/10/21 19:12 Home Meds: Home Meds Glimepiride 2 mg PO DAILY 03/08/15 [History] Finasteride [Proscar] 5 mg PO DAILY 05/14/18 [History] Insulin Degludec [Tresiba] 20 unit SQ BEDTIME 06/09/21 [History] Carbidopa/Levodopa [Carbidopa-Levodopa 25-250] 1 tab PO 5XDAY 06/10/21 [History] Levothyroxine [Synthroid] 50 mcg PO DAILY 06/10/21 [History] Solifenacin Succinate 10 mg PO DAILY 06/10/21 [History] Tamsulosin [Flomax] 0.4 mg PO BEDTIME 06/10/21 [History] sitaGLIPtin Phos/Metformin HCl [Janumet 50-1,000 MG] 1 each PO BID 06/10/21 [History] Apixaban [Eliquis] 5 mg PO BID #30 tablet 07/12/21 [Rx] Apixaban [Eliquis] 10 mg PO BID #26 tablet 07/12/21 [Rx] Pantoprazole [ProTONIX] 40 mg PO BID #40 tab.cr 07/12/21 [Rx] Past Medical History HEENT History: Reports: Impaired Vision Other HEENT History: hearing aides and reading glasses Cardiovascular History: Reports: High Cholesterol, Hypertension Respiratory History: Reports: Sleep Apnea, Other (See Below) Other Respiratory History: wear a cpap at night Gastrointestinal History: Reports: None Genitourinary History: Reports: Other (See Below) Other Genitourinary History: kidney calculus, neurogenic bladder, TURP, cystoscopy, lithotripsy PROJECT MGR History: Reports: None Musculoskeletal History: Reports: Arthritis Neurological History: Reports: Parkinson's, Other (See Below) Other Neuro History: back surgery Psychiatric History: Reports: None Endocrine/Metabolic History: Reports: Diabetes, Type II, Hypothyroidism Other Endocrine/Metabolic History: on insulin Hematologic History: Reports: None Immunologic History: Reports: None Oncologic (Cancer) History: Reports: None Dermatologic History: Reports: None - Infectious Disease History Infectious Disease History: Reports: Acinetobacter (MDRA), Novel Coronavirus - Past Surgical History Head Surgeries/Procedures: Reports: None HEENT Surgical History: Reports: Naso-Sinus Surgery, Other (See Below) Other HEENT Surgeries/Procedures: polyps on vocal cord surgery Cardiovascular Surgical History: Reports: None Respiratory Surgical History: Reports: None GI Surgical History: Reports: Colonoscopy, Hernia, Abdominal, Hernia Repair/Other Male Surgical History: Reports: Lithotripsy ([facility]) Endocrine Surgical History: Reports: None Neurological Surgical History: Reports: None Musculoskeletal Surgical History: Reports: Knee Replacement, Other (See Below) Other Musculoskeletal Surgeries/Procedures:: bilateral knee replacement, back surgery d/t ruptured disc Oncologic Surgical History: Reports: None Dermatological Surgical History: Reports: None Social & Family History - Family History Family Medical History: No Pertinent Family History - Tobacco Use Tobacco Use Status *Q: Never Tobacco User - Caffeine Use Caffeine Use: Reports: Coffee, Soda ED ROS GENERAL - Review of Systems Review Of Systems: See Below Constitutional: Reports: Diaphoresis (mild, gone). Denies: Fever, Chills HEENT: Reports: No Symptoms Cardiovascular: Reports: Chest Pain (earlier this morning, now gone) GI/Abdominal: Denies: Abdominal Pain, Nausea, Vomiting Musculoskeletal: Denies: Shoulder Pain, Arm Pain Neurological: Reports: Dizziness (gone) ED EXAM, GENERAL - Physical Exam Exam: See Below General Appearance: Alert, No Apparent Distress (at time of exam) Eye Exam: Bilateral Eye: PERRL Throat/Mouth: Normal Inspection Head: Atraumatic Neck: Supple, Other (no JVD) Respiratory/Chest: No Respiratory Distress, Lungs Clear, Normal Breath Sounds, No Accessory Muscle Use Cardiovascular: Tachycardia Back Exam: No: CVA Tenderness (L), CVA Tenderness (R) Extremities: Normal Inspection. No: Pedal Edema, Leg Pain Neurological: Alert, Oriented, No Motor/Sensory Deficits Skin Exam: Warm, Dry, Normal Color #2 Interpretation EKG Date: 07/10/21 Rhythm: NSR P-Wave: Present QRS: Normal ST-T: Normal QT: Normal Course - Vital Signs Last Recorded V/S: Last Vital Signs Temp 97.1 F 07/12/21 08:00 Pulse 75 07/12/21 08:00 Resp 18 07/12/21 08:00 BP 123/70 07/12/21 08:00 Pulse Ox 97 07/12/21 08:00 - Orders/Labs/Meds Labs: Laboratory Tests 07/10/21 07/10/21 07/10/21 Range/Units 10:15 10:15 10:15 WBC 9.05 (4.23-9.07) K/mm3 RBC 3.94 L (4.63-6.08) M/mm3 Hgb 12.0 L (13.7-17.5) gm/dl Hct 38.6 L (40.1-51.0) % MCV 98.0 H (79.0-92.2) fl MCH 30.5 (25.7-32.2) pg MCHC 31.1 L (32.2-35.5) g/dl RDW Std Deviation 51.3 H (35.1-43.9) fL Plt Count 211 (163-337) K/mm3 MPV 9.5 (9.4-12.3) fl Neut % (Auto) 80.7 H (34.0-67.9) % Lymph % (Auto) 9.3 L (21.8-53.1) % Steele % (Auto) 8.3 (5.3-12.2) % Eos % (Auto) 0.9 (0.8-7.0) Baso % (Auto) 0.2 (0.1-1.2) % Neut # (Auto) 7.31 H (1.78-5.38) K/mm3 Lymph # (Auto) 0.84 L (1.32-3.57) K/mm3 Steele # (Auto) 0.75 (0.30-0.82) K/mm3 Eos # (Auto) 0.08 (0.04-0.54) K/mm3 Baso # (Auto) 0.02 (0.01-0.08) K/mm3 D-Dimer, Quantitative 5.52 H (0.19-0.50) mg/L Sodium 140 (136-145) mEq/L Potassium 4.3 (3.5-5.1) mEq/L Chloride 100 (98-107) mEq/L Carbon Dioxide 31 (21-32) mEq/L Anion Gap 13.3 (5-15) BUN 16 (7-18) mg/dL Creatinine 0.8 (0.7-1.3) mg/dL Est Cr Clr Drug Dosing TNP Estimated GFR (MDRD) > 60 (>60) mL/min BUN/Creatinine Ratio 20.0 H (14-18) Glucose 192 H (70-99) mg/dL Calcium 8.8 (8.5-10.1) mg/dL Troponin I < 0.017 (0.00-0.056) ng/mL Meds: Medications Discontinued Medications Generic Name Dose Route Start Last Admin Trade Name Freq PRN Reason Stop Dose Admin Acetaminophen 650 mg 07/10/21 14:09 07/12/21 04:30 Acetaminophen 325 Mg Tab PO 650 mg Q4H PRN Administration Pain (Mild 1-3)/fever Albuterol 0 gm 07/10/21 14:09 Albuterol 6.7 Gm Inhaler INH Q2H PRN SOB/Wheezing Albuterol/Ipratropium 3 ml 07/10/21 14:09 Albuterol/Ipratropium 3.0-0.5 Mg/3 Ml Neb Soln NEB QIDRT PRN Shortness Of Breath/wheezing Apixaban 10 mg 07/12/21 09:00 07/12/21 08:48 Apixaban 5 Mg Tab PO 07/18/21 21:01 10 mg BID NALDO Administration Enoxaparin Sodium 100 mg 07/10/21 10:45 07/10/21 10:59 Enoxaparin 100 Mg/1 Ml Syringe SUBCUT 07/10/21 10:46 100 mg ONETIME ONE Administration Finasteride 5 mg 07/11/21 09:00 07/12/21 08:48 Finasteride 5 Mg Tab PO 5 mg DAILY NALDO Administration Heparin Sodium (Porcine) 5,000 units 07/10/21 22:45 07/10/21 22:47 Heparin Sodium 5,000 Units/Ml Vial IVPUSH 07/10/21 22:46 5,000 units ONETIME ONE Administration Sodium Chloride 100 mls @ 60 mls/hr 07/10/21 09:15 07/10/21 10:23 Normal Saline IV 60 mls/hr ASDIRECTED NALDO Administration Heparin Sodium/Dextrose 25,000 units in 500 mls @ 26 mls/hr 07/10/21 22:45 07/12/21 04:00 Heparin 25,000 Units In D5w 500 Ml IV 34 mls/hr TITRATE NALDO Administration Protocol Magnesium Sulfate 2 gm/ Premix 50 mls @ 25 mls/hr 07/11/21 07:04 07/11/21 07:58 IV 07/11/21 09:03 25 mls/hr ONETIME ONE Administration Insulin Glargine 20 unit 07/10/21 21:00 07/11/21 21:19 Insulin Glargine,Hum.Rec.Anlog 100 Unit/Ml 3 Ml Pen SUBCUT 20 units BEDTIME NALDO Administration Insulin Human Lispro 0 unit 07/10/21 17:00 07/12/21 11:50 Insulin Lispro 100 Unit/Ml 3 Ml Kwikpen SUBCUT Not Given QIDACANDBED [facility] Protocol Iopamidol 100 ml 07/10/21 09:02 07/10/21 10:23 Iopamidol 755 Mg/Ml 100 Ml Bottle IVPUSH 07/10/21 09:03 100 ml ONETIME ONE Administration Levothyroxine Sodium 50 mcg 07/11/21 06:00 07/12/21 06:04 Levothyroxine 50 Mcg Tab PO 50 mcg ACBREAKFAST NALDO Administration Carbidopa/Levodopa 1 tab 07/10/21 18:00 07/12/21 11:13 25-250mg Tablet PO 1 tab Ptom 5XDAY NALDO Administration Ondansetron HCl 4 mg 07/10/21 14:09 Ondansetron 4 Mg/2 Ml Sdv IV Q6H PRN Nausea/Vomiting Pantoprazole Sodium 40 mg 07/10/21 13:53 07/10/21 15:53 Pantoprazole 40 Mg Tab.Cr PO 07/10/21 13:54 40 mg ONETIME ONE Administration Pantoprazole Sodium 40 mg 07/10/21 21:00 07/12/21 08:48 Pantoprazole 40 Mg Tab.Cr PO 40 mg BID NALDO Administration Senna/Docusate Sodium 2 tab 07/10/21 14:09 Docusate Sodium/Sennosides 50-8.6 Mg Tab PO BID PRN Constipation Sodium Chloride 10 ml 07/10/21 09:02 07/10/21 10:15 Sodium Chloride 0.9% 10 Ml Syringe FLUSH 07/10/21 09:03 10 ml ONETIME ONE Administration Tamsulosin HCl 0.4 mg 07/10/21 21:00 07/11/21 20:34 Tamsulosin 0.4 Mg Cap.Er PO 0.4 mg BEDTIME NALDO Administration Trospium 20 mg 07/11/21 06:00 07/12/21 06:04 Trospium 20 Mg Tab PO 20 mg BIDAC NALDO Administration - Re-Assessments/Exams Free Text/Narrative Re-Assessment/Exam: 07/10/21 10:15. CT pul angio shows filling defects within the distal main pulmonary arteries. addition filling defects are seen which extend into the segmental and subsegmental branches of the L lower pulmonary artery. He is resting comfortably, no chest pain, sats 92 % room air. Have ordered lovenox 100 mg sq. Call placed to consider admission. Dr Rutherford agrees better, safer to admit. They are working on a couple of discharges. We will need to hold him until a room is ready. Departure - Departure Time of Disposition: 10:30 Disposition: Admitted As Inpatient 65 Condition: Serious Clinical Impression: Hypoxia Pulmonary emboli Qualifiers: Pulmonary embolism type: multiple subsegmental (without acute cor pulmonale) Qualified Code(s): I26.94 - Multiple subsegmental pulmonary emboli without acute cor pulmonale - Discharge Information Sepsis Event Note (ED) - Evaluation Sepsis Screening Result: No Definite Risk ED Communication - Discussed Case With (1) Discussed Case With (1): Admitting Provider (decision to admit at about 11:10.)
[2021-07-10] MEDS ORDERED: Enoxaparin 100 MG/1 ML Syringe SUBCUT ONE (10:45)
--- NOTE | 2021-07-10 12:23 | PCM.HP.2 ---
<Bryn Bello - Last Filed: 07/10/21 14:27> H&P History of Present Illness - General Date of Service: 07/10/21 Admit Problem/Dx: Pulmonary embolism Source of Information: Patient, Family, Old Records, Provider, RN, RN Notes Reviewed History Limitations: Reports: No Limitations - History of Present Illness Initial Comments - Free Text/Narative: This is a 71-year-old male who presents to ED on 07/10/2021 with noted low oxygen saturations and a cough. Patient reports has been more short of breath over the past 1 to 2 days. He is chronically on 2 L of oxygen at home. Family reports patient was noted to be more short of breath this morning and saturations observed on fingertip pulse oximetry were in the 60% range. He had some left-sided chest pain, which has resolved. Denies any recent fever or chills. Of note patient was hospitalized from 06/10/2021 and ~06/26/2021 with COVID-19 pneumonia. During that time patient's D-dimer was noted to increase from 6.74 up to 25.45. Multiple CTA scans were obtained with no findings of pulmonary embolism. Lower extremity ultrasound was also obtained and showed no findings of DVT. Patient was started on 1 mg/kg Lovenox and then had an episode of hematemesis, which resulted in his Lovenox being stopped. He was started on a heparin drip and restarted on Lovenox 1 mg/kg prior to discharge from the hospital. Per the patient he was compliant with therapy and his primary care provider discontinued his Levaquin approximately 1 week ago and start him on 325 mg daily aspirin. In the ED twelve-lead EKG is obtained showing a sinus rhythm with no ischemic changes or ectopy. Temp is 97.8. Respirations are 18. Blood pressure is 150/72. Pulse ox is 92% on 2L. On triage he is noted to be tachycardic. Labs are obtained showing a WBC of 9.05. Hemoglobin is 12.0. Platelet 211,000. Neutrophils are elevated 80.7. D-dimer is high at 5.52. Sodium is 140. Potassium 4.3. Chloride 100. Carbon dioxide 31. Anion gap 13.3. BUN is 16. Creatinine 0.8. GFR greater than 60. Glucose is 192. Calcium 8.8. Troponin l ess than 0.017. CTA is obtained showing "1. Pulmonary embolism are present within both pulmonary arteries and extending into the segmental and subsegmental branches of the left lower pulmonary artery. 2. Increased density within both lung bases presumably due to persisting COVID-19 pneumonia. 3. Small right- sided pleural effusion is seen." Given his fairly recent history of GI bleed is felt patient is high risk for repeat complications from PE treatment. Decision was made to admit the patient to the medical floor with telemetry for further treatment and close monitoring. There are currently no beds available on the medical surgical floor so the patient will go to ICU as an M/S/P overflow. He carries a history of HLD, HTN, sleep apnea utilizing CPAP, neurogenic bladder, status post TURP, Parkinson's disease, type II DM, hypothyroidism, COVID-19 pneumonia. He is a full code. His PCP is Dr. Carol Benitez. - Related Data Allergies/Adverse Reactions: Allergies Allergy/AdvReac Type Severity Reaction Status Date / Time No Known Allergies Allergy Verified 06/10/21 19:12 Home Medications: Home Meds Glimepiride 2 mg PO DAILY 03/08/15 [History] Finasteride [Proscar] 5 mg PO DAILY 05/14/18 [History] Insulin Degludec [Tresiba] 20 unit SQ BEDTIME 06/09/21 [History] Carbidopa/Levodopa [Carbidopa-Levodopa 25-250] 1 tab PO 5XDAY 06/10/21 [History] Levothyroxine [Synthroid] 50 mcg PO DAILY 06/10/21 [History] Solifenacin Succinate 10 mg PO DAILY 06/10/21 [History] Tamsulosin [Flomax] 0.4 mg PO BEDTIME 06/10/21 [History] sitaGLIPtin Phos/Metformin HCl [Janumet 50-1,000 MG] 1 each PO BID 06/10/21 [His tory] Aspirin 325 mg PO DAILY 07/10/21 [History] Pantoprazole [ProTONIX] 40 mg PO BIDAC PRN 07/10/21 [History] Past Medical History HEENT History: Reports: Impaired Vision Other HEENT History: hearing aides and reading glasses Cardiovascular History: Reports: High Cholesterol, Hypertension Respiratory History: Reports: Sleep Apnea, Other (See Below) Other Respiratory History: wear a cpap at night Gastrointestinal History: Reports: None Genitourinary History: Reports: Other (See Below) Other Genitourinary History: kidney calculus, neurogenic bladder, TURP, cystoscopy, lithotripsy 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 Musculoskeletal History: Reports: Arthritis Neurological History: Reports: Parkinson's, Other (See Below) Other Neuro History: back surgery Psychiatric History: Reports: None Endocrine/Metabolic History: Reports: Diabetes, Type II, Hypothyroidism Other Endocrine/Metabolic History: on insulin Hematologic History: Reports: None Immunologic History: Reports: None Oncologic (Cancer) History: Reports: None Dermatologic History: Reports: None - Infectious Disease History Infectious Disease History: Reports: Acinetobacter (MDRA), Novel Coronavirus - Past Surgical History Head Surgeries/Procedures: Reports: None HEENT Surgical History: Reports: Naso-Sinus Surgery, Other (See Below) Other HEENT Surgeries/Procedures: polyps on vocal cord surgery Cardiovascular Surgical History: Reports: None Respiratory Surgical History: Reports: None GI Surgical History: Reports: Colonoscopy, Hernia, Abdominal, Hernia Repair/Other Male Surgical History: Reports: Lithotripsy ([facility]) Endocrine Surgical History: Reports: None Neurological Surgical History: Reports: None Musculoskeletal Surgical History: Reports: Knee Replacement, Other (See Below) Other Musculoskeletal Surgeries/Procedures:: bilateral knee replacement, back surgery d/t ruptured disc Oncologic Surgical History: Reports: None Dermatological Surgical History: Reports: None Social & Family History - Family History Family Medical History: No Pertinent Family History - Tobacco Use Tobacco Use Status *Q: Never Tobacco User - Caffeine Use Caffeine Use: Reports: Coffee, Soda H&P Review of Systems - Review of Systems: Review Of Systems: See Below General: Reports: Weakness. Denies: Fever, Chills, Malaise, Fatigue HEENT: Reports: No Symptoms. Denies: Headaches, Sore Throat Pulmonary: Reports: Shortness of Breath, Cough, Sputum. Denies: Wheezing, Pleuritic Chest Pain, Hemoptysis Cardiovascular: Reports: Dyspnea on Exertion. Denies: Chest Pain, Palpitations, Edema Gastrointestinal: Reports: No Symptoms. Denies: Abdominal Pain, Black Stool, Bloody Stool, Constipation, Diarrhea, Flatus, Hematemesis, Hematochezia, Vomiting Genitourinary: Reports: No Symptoms. Denies: Pain Musculoskeletal: Reports: No Symptoms Skin: Reports: No Symptoms. Denies: Cyanosis Psychiatric: Reports: No Symptoms Neurological: Reports: Confusion (Very mild baseline at times), Pre-Existing Deficit (Parkinson's), Tremors, Difficulty Walking, Weakness, Gait Disturbance. Denies: Dizziness, Headache, Numbness, Seizure, Syncope, Tingling, Trouble Speaking, Change in Speech Hematologic/Lymphatic: Reports: No Symptoms Immunologic: Reports: No Symptoms Exam - Exam Exam: See Below - Vital Signs Vital Signs: Last Vital Signs Temp 97.8 F 07/10/21 08:24 Pulse 104 H 07/10/21 08:24 Resp 18 07/10/21 08:24 BP 150/72 H 07/10/21 08:24 Pulse Ox 92 L 07/10/21 08:24 Weight: 99.79 kg - Exam Quality Assessment: Supplemental Oxygen (2L), DVT Prophylaxis. No: Urinary Cat heter General: Alert, Oriented, Cooperative. No: Mild Distress HEENT: Conjunctiva Clear, EACs Clear, Mucosa Moist & [place], Posterior Pharynx Clear Neck: Supple, Trachea Midline Lungs: Clear to Auscultation, Normal Respiratory Effort, Decreased Breath Sounds. No: Crackles, Rhonchi, Wheezing Cardiovascular: Regular Rhythm, Tachycardia GI/Abdominal Exam: Normal Bowel Sounds, Soft, Non-Tender, No Distention (Male) Exam: Deferred Rectal (Males) Exam: Deferred Back Exam: Normal Inspection, Decreased Range of Motion Extremities: Normal Range of Motion, Non-Tender, No Pedal Edema, Normal Capillary Refill, Limited Range of Motion Skin: Warm, Dry, Intact Neurological: Cranial Nerves Intact (Grossly) Psychiatric: Alert, Normal Affect, Normal Mood - Patient Data Lab Results Last 24 hrs: Laboratory Results - last 24 hr 07/10/21 07/10/21 07/10/21 Range/Units 10:15 10:15 10:15 WBC 9.05 (4.23-9.07) K/mm3 RBC 3.94 L (4.63-6.08) M/mm3 Hgb 12.0 L (13.7-17.5) gm/dl Hct 38.6 L (40.1-51.0) % MCV 98.0 H (79.0-92.2) fl MCH 30.5 (25.7-32.2) pg MCHC 31.1 L (32.2-35.5) g/dl RDW Std Deviation 51.3 H (35.1-43.9) fL Plt Count 211 (163-337) K/mm3 MPV 9.5 (9.4-12.3) fl Neut % (Auto) 80.7 H (34.0-67.9) % Lymph % (Auto) 9.3 L (21.8-53.1) % Mayes % (Auto) 8.3 (5.3-12.2) % Eos % (Auto) 0.9 (0.8-7.0) Baso % (Auto) 0.2 (0.1-1.2) % Neut # (Auto) 7.31 H (1.78-5.38) K/mm3 Lymph # (Auto) 0.84 L (1.32-3.57) K/mm3 Mayes # (Auto) 0.75 (0.30-0.82) K/mm3 Eos # (Auto) 0.08 (0.04-0.54) K/mm3 Baso # (Auto) 0.02 (0.01-0.08) K/mm3 D-Dimer, Quantitative 5.52 H (0.19-0.50) mg/L Sodium 140 (136-145) mEq/L Potassium 4.3 (3.5-5.1) mEq/L Chloride 100 (98-107) mEq/L Carbon Dioxide 31 (21-32) mEq/L Anion Gap 13.3 (5-15) BUN 16 (7-18) mg/dL Creatinine 0.8 (0.7-1.3) mg/dL Est Cr Clr Drug Dosing TNP Estimated GFR (MDRD) > 60 (>60) mL/min BUN/Creatinine Ratio 20.0 H (14-18) Glucose 192 H (70-99) mg/dL Calcium 8.8 (8.5-10.1) mg/dL Troponin I < 0.017 (0.00-0.056) ng/mL Result Diagrams: 07/10/21 10:15 07/10/21 10:15 Sepsis Event Note - Evaluation Sepsis Screening Result: No Definite Risk - Focused Exam Vital Signs: Vital Signs Temp Pulse Resp BP Pulse Ox 07/10/21 08:24 97.8 F 104 H 18 150/72 H 92 L - Problem List (1) Chronic respiratory failure with hypoxia, on home oxygen therapy SNOMED Code(s): 144315138 ICD Code: J96.11 - CHRONIC RESPIRATORY FAILURE WITH HYPOXIA; Z99.81 - DEPENDENCE ON SUPPLEMENTAL OXYGEN Status: Chronic Priority: High Current Visit: Yes (2) History of GI bleed SNOMED Code(s): 086262642 ICD Code: Z87.19 - PERSONAL HISTORY OF OTHER DISEASES OF THE DIGESTIVE SYSTEM Status: Chronic Priority: Medium Current Visit: No (3) Pulmonary emboli SNOMED Code(s): 93605656 ICD Code: I26.99 - OTHER PULMONARY EMBOLISM WITHOUT ACUTE COR PULMONALE Status: Acute Priority: High Current Visit: Yes Qualifiers: Pulmonary embolism type: multiple subsegmental (without acute cor pulmonale) Qualified Code(s): I26.94 - Multiple subsegmental pulmonary emboli without acute cor pulmonale (4) Parkinson's disease dementia SNOMED Code(s): 088989013805812 ICD Code: G20 - PARKINSON'S DISEASE; F02.80 - DEMENTIA IN OTH DISEASES CLASSD ELSWHR W/O BEHAVRL DISTURB Status: Chronic Priority: Medium Current Visit: No Qualifiers: Dementia behavioral disturbance: without behavioral disturbance Qualified Code(s): G20 - Parkinson's disease; F02.80 - Dementia in other diseases classified elsewhere without behavioral disturbance (5) Elevated d-dimer SNOMED Code(s): 238007991 ICD Code: R79.89 - OTHER SPECIFIED ABNORMAL FINDINGS OF BLOOD CHEMISTRY Status: Acute Priority: High Current Visit: Yes (6) Diabetes mellitus type 2 in nonobese SNOMED Code(s): 399327721 ICD Code: E11.9 - TYPE 2 DIABETES MELLITUS WITHOUT COMPLICATIONS Status: Chronic Priority: Medium Current Visit: No (7) HLD (hyperlipidemia) SNOMED Code(s): 65251547 ICD Code: E78.5 - HYPERLIPIDEMIA, UNSPECIFIED Status: Chronic Priority: Low Current Visit: No Qualifiers: Hyperlipidemia type: unspecified Qualified Code(s): E78.5 - Hyperlipidemia, unspecified (8) HTN (hypertension) SNOMED Code(s): 57779594 ICD Code: I10 - ESSENTIAL (PRIMARY) HYPERTENSION Status: Chronic Priority: Medium Current Visit: No Qualifiers: Hypertension type: unspecified Qualified Code(s): I10 - Essential (primary) hypertension (9) Obstructive sleep apnea on CPAP SNOMED Code(s): 08524532 ICD Code: G47.33 - OBSTRUCTIVE SLEEP APNEA (ADULT) (PEDIATRIC); Z99.89 - DEPENDENCE ON OTHER ENABLING MACHINES AND DEVICES Status: Chronic Priority: Medium Current Visit: No (10) Neurogenic bladder SNOMED Code(s): 648061835 ICD Code: N31.9 - NEUROMUSCULAR DYSFUNCTION OF BLADDER, UNSPECIFIED Status: Chronic Priority: Low Current Visit: No (11) S/P TURP SNOMED Code(s): 627192511, 89118427, 060670919 ICD Code: Z90.79 - ACQUIRED ABSENCE OF OTHER GENITAL ORGAN(S) Status: Chronic Priority: Low Current Visit: No (12) Parkinsons disease SNOMED Code(s): 61445233 ICD Code: G20 - PARKINSON'S DISEASE Status: Chronic Priority: Medium Current Visit: No (13) Hypothyroidism SNOMED Code(s): 38699440 ICD Code: E03.9 - HYPOTHYROIDISM, UNSPECIFIED Status: Chronic Priority: Low Current Visit: No Qualifiers: Hypothyroidism type: unspecified Qualified Code(s): E03.9 - Hypothyroidism, unspecified (14) History of COVID-19 SNOMED Code(s): 724983046216607375, 684181755641662428 ICD Code: Z86.16 - PERSONAL HISTORY OF COVID-19 Status: Chronic Priority: Medium Current Visit: Yes Problem List Initiated/Reviewed/Updated: Yes Orders Last 24hrs: Active Orders 24 hr Category Date Time Status Sodium Chloride 0.9% [Normal Saline] 100 ml Med 07/10/21 09:15 Active IV ASDIRECTED Medication Orders Sodium Chloride (Normal Saline) 100 mls @ 60 mls/hr IV ASDIRECTED NALDO Last Admin: 07/10/21 10:23 Dose: 60 mls/hr Documented by: KYLAH Assessment/Plan Comment:: Pulmonary emboli Elevated d-dimer History of GI bleed * Heparin drip VTE protocol -begin at 2245 due to Lovenox given in ED * 5000 unit IV push bolus -begin at 2245 due to Lovenox given in ED * Monitor APTT as per VTE protocol * Daily labs * Echocardiogram to rule out right heart strain * Discontinue home aspirin * Twice daily Protonix PO * Monitor for signs of GI bleeding Chronic respiratory failure with hypoxia, on home oxygen therapy Obstructive sleep apnea on CPAP History of COVID-19 * O2 as needed to keep saturations above 90% chronically on 2 L at home * CPAP at night * As needed DuoNebs * As needed albuterol MDI Parkinsons disease Parkinson's disease dementia * No acute concerns * PT/OT * Let me sleep protocol * Continue home medications * High fall risk Diabetes mellitus type 2 in nonobese * Long-acting insulin as ordered * Hold home p.o. diabetic meds * Medium intensity sliding scale insulin as ordered * Consistent carbohydrate diet HLD (hyperlipidemia) * No acute concerns * No home statins HTN (hypertension) * No acute concerns * Home medications as ordered * Monitor vital signs Neurogenic bladder S/P TURP * No acute concerns * Home medications as ordered Hypothyroidism * No acute concerns * Home levothyroxine as ordered Code status: Full code PCP: Dr. Benitez VTE prophylaxis: Heparin drip as above Social: Patient lives at home with and has family support. Disposition: Patient admitted to ICU as a medicalsurgical overflow for treatment and monitoring of his PEs with relatively high risk of bleeding given prior GI bleed. Likely length of stay 3 to 4 days. - Mortality Measure Prognosis:: Good <Nino Rutherford - Last Filed: 07/10/21 16:06> H&P History of Present Illness - General Admit Problem/Dx: Admission Diagnosis/Problem Admission Diagnosis/Problem Pulmonary embolism Exam - Vital Signs Vital Signs: Last Vital Signs Temp 36.6 C 07/10/21 14:09 Pulse 93 07/10/21 14:09 Resp 22 H 07/10/21 14:09 BP 129/71 07/10/21 14:09 Pulse Ox 95 07/10/21 14:10 - Patient Data Lab Results Last 24 hrs: Laboratory Results - last 24 hr 07/10/21 07/10/21 07/10/21 Range/Units 10:15 10:15 10:15 WBC 9.05 (4.23-9.07) K/mm3 RBC 3.94 L (4.63-6.08) M/mm3 Hgb 12.0 L (13.7-17.5) gm/dl Hct 38.6 L (40.1-51.0) % MCV 98.0 H (79.0-92.2) fl MCH 30.5 (25.7-32.2) pg MCHC 31.1 L (32.2-35.5) g/dl RDW Std Deviation 51.3 H (35.1-43.9) fL Plt Count 211 (163-337) K/mm3 MPV 9.5 (9.4-12.3) fl Neut % (Auto) 80.7 H (34.0-67.9) % Lymph % (Auto) 9.3 L (21.8-53.1) % Mayes % (Auto) 8.3 (5.3-12.2) % Eos % (Auto) 0.9 (0.8-7.0) Baso % (Auto) 0.2 (0.1-1.2) % Neut # (Auto) 7.31 H (1.78-5.38) K/mm3 Lymph # (Auto) 0.84 L (1.32-3.57) K/mm3 Mayes # (Auto) 0.75 (0.30-0.82) K/mm3 Eos # (Auto) 0.08 (0.04-0.54) K/mm3 Baso # (Auto) 0.02 (0.01-0.08) K/mm3 PT (9.7-12.0) SECONDS INR APTT (21.7-31.4) SECONDS D-Dimer, Quantitative 5.52 H (0.19-0.50) mg/L Sodium 140 (136-145) mEq/L Potassium 4.3 (3.5-5.1) mEq/L Chloride 100 (98-107) mEq/L Carbon Dioxide 31 (21-32) mEq/L Anion Gap 13.3 (5-15) BUN 16 (7-18) mg/dL Creatinine 0.8 (0.7-1.3) mg/dL Est Cr Clr Drug Dosing TNP Estimated GFR (MDRD) > 60 (>60) mL/min BUN/Creatinine Ratio 20.0 H (14-18) Glucose 192 H (70-99) mg/dL Calcium 8.8 (8.5-10.1) mg/dL Troponin I < 0.017 (0.00-0.056) ng/mL 07/10/21 07/10/21 Range/Units 15:09 15:09 WBC (4.23-9.07) K/mm3 RBC (4.63-6.08) M/mm3 Hgb (13.7-17.5) gm/dl Hct (40.1-51.0) % MCV (79.0-92.2) fl MCH (25.7-32.2) pg MCHC (32.2-35.5) g/dl RDW Std Deviation (35.1-43.9) fL Plt Count (163-337) K/mm3 MPV (9.4-12.3) fl Neut % (Auto) (34.0-67.9) % Lymph % (Auto) (21.8-53.1) % Mayes % (Auto) (5.3-12.2) % Eos % (Auto) (0.8-7.0) Baso % (Auto) (0.1-1.2) % Neut # (Auto) (1.78-5.38) K/mm3 Lymph # (Auto) (1.32-3.57) K/mm3 Mayes # (Auto) (0.30-0.82) K/mm3 Eos # (Auto) (0.04-0.54) K/mm3 Baso # (Auto) (0.01-0.08) K/mm3 PT 11.4 (9.7-12.0) SECONDS INR 1.03 APTT 34.4 H (21.7-31.4) SECONDS D-Dimer, Quantitative (0.19-0.50) mg/L Sodium (136-145) mEq/L Potassium (3.5-5.1) mEq/L Chloride (98-107) mEq/L Carbon Dioxide (21-32) mEq/L Anion Gap (5-15) BUN (7-18) mg/dL Creatinine (0.7-1.3) mg/dL Est Cr Clr Drug Dosing Estimated GFR (MDRD) (>60) mL/min BUN/Creatinine Ratio (14-18) Glucose (70-99) mg/dL Calcium (8.5-10.1) mg/dL Troponin I (0.00-0.056) ng/mL Result Diagrams: 07/10/21 10:15 07/10/21 10:15 Sepsis Event Note - Focused Exam Vital Signs: Vital Signs Temp Pulse Resp BP Pulse Ox Pulse Ox 07/10/21 14:10 95 07/10/21 14:09 36.6 C 93 22 H 129/71 95 95 07/10/21 08:24 36.6 C 104 H 18 150/72 H 92 L Orders Last 24hrs: Active Orders 24 hr Category Date Time Status Admission Status [Patient Status] [ADT] Routine ADT 07/10/21 13:51 Active Blood Glucose Check, Bedside [RC] QIDACANDBED Care 07/10/21 14:19 Active CPAP Noctural Home [RT BiPAP/CPAP] [RC] ASDIRECTED Care 07/10/21 14:21 Active Cardiac Monitoring [RC] . DIRECTED Care 07/10/21 13:52 Active Height and Weight [RC] 0400 Care 07/10/21 14:09 Active Intake and Output [RC] Q12H Care 07/10/21 14:10 Active Let Patient Sleep Protocol [RC] BEDTIME Care 07/10/21 14:09 Active Oxygen Therapy [RC] ASDIRECTED Care 07/10/21 14:09 Active Pulse Oximetry [RC] PRN Care 07/10/21 14:10 Active RT Aerosol Therapy [RC] ASDIRECTED Care 07/10/21 14:11 Active Up With Assistance [RC] ASDIRECTED Care 07/10/21 14:10 Active Up to Chair [RC] ASDIRECTED Care 07/10/21 14:09 Active Vital Signs [RC] Q4H Care 07/10/21 14:09 Active Consult to Case Management/Geriatric Physical Therapist [CONS] Cons 07/10/21 14:09 Active Routine Consult to Spiritual Care [CONS] Routine Cons 07/10/21 14:09 Active OT Evaluation and Treatment [CONS] Routine Cons 07/10/21 14:12 Active PT Evaluation and Treatment [CONS] Routine Cons 07/10/21 14:12 Active Consistent Carbohydrate Diet [DIET] Diet 07/10/21 Dinner Active Echo Comp wo Cont [US] Routine Exams 07/10/21 14:09 Ordered BASIC METABOLIC PANEL,BMP [CHEM] AM Lab 07/11/21 05:11 Ordered BASIC METABOLIC PANEL,BMP [CHEM] AM Lab 07/12/21 05:11 Ordered BASIC METABOLIC PANEL,BMP [CHEM] AM Lab 07/13/21 05:11 Ordered BASIC METABOLIC PANEL,BMP [CHEM] AM Lab 07/14/21 05:11 Ordered CBC WITH AUTO DIFF [HEME] AM Lab 07/11/21 05:11 Ordered CBC WITH AUTO DIFF [HEME] AM Lab 07/12/21 05:11 Ordered CBC WITH AUTO DIFF [HEME] AM Lab 07/13/21 05:11 Ordered CBC WITH AUTO DIFF [HEME] AM Lab 07/14/21 05:11 Ordered MAGNESIUM [CHEM] AM Lab 07/11/21 05:11 Ordered MAGNESIUM [CHEM] AM Lab 07/12/21 05:11 Ordered MAGNESIUM [CHEM] AM Lab 07/13/21 05:11 Ordered MAGNESIUM [CHEM] AM Lab 07/14/21 05:11 Ordered Acetaminophen [TylenoL] Med 07/10/21 14:09 Active 650 mg PO Q4H PRN Albuterol [Proventil HFA] Med 07/10/21 14:09 Active See Dose Instructions INH Q2H PRN Albuterol/Ipratropium [DuoNeb 3.0-0.5 MG/3 ML] Med 07/10/21 14:09 Active 3 ml NEB QIDRT PRN Carbidopa/Levodopa Med 07/10/21 18:00 Active 1 tab PO 5XDAY Docusate Sodium/Sennosides [Senna Plus] Med 07/10/21 14:09 Active 2 tab PO BID PRN Finasteride [Proscar] Med 07/11/21 09:00 Active 5 mg PO DAILY Heparin Sodium Med 07/10/21 22:45 Once 5,000 units IVPUSH ONETIME ONE Heparin Sodium/D5W [Heparin 25,000 Units in D5W 500 ML] Med 07/10/21 22:45 Active 25,000 units in 500 ml IV TITRATE Insulin Glargine,Hum.Rec.Anlog [Semglee Pen] Med 07/10/21 21:00 Active 20 unit SUBCUT BEDTIME Insulin Lispro [HumaLOG] Med 07/10/21 17:00 Active See Protocol SUBCUT QIDACANDBED Levothyroxine [Synthroid] Med 07/11/21 06:00 Active 50 mcg PO ACBREAKFAST Ondansetron [Zofran] Med 07/10/21 14:09 Active 4 mg IV Q6H PRN Pantoprazole [ProTONIX] Med 07/10/21 21:00 Active 40 mg PO BID Tamsulosin [Flomax] Med 07/10/21 21:00 Active 0.4 mg PO BEDTIME Trospium [Sanctura] Med 07/11/21 06:00 Active 20 mg PO BIDAC Precautions [COMM] Routine Oth 07/10/21 14:13 Ordered Code Status [Resuscitation Status] Stat Resus Stat 07/10/21 13:53 Ordered Medication Orders Acetaminophen (Acetaminophen 325 Mg Tab) 650 mg PO Q4H PRN PRN Reason: Pain (Mild 1-3)/fever Albuterol (Albuterol 6.7 Gm Inhaler) 0 gm INH Q2H PRN PRN Reason: SOB/Wheezing Albuterol/Ipratropium (Albuterol/Ipratropium 3.0-0.5 Mg/3 Ml Neb Soln) 3 ml NEB QIDRT PRN PRN Reason: Shortness Of Breath/wheezing Finasteride (Finasteride 5 Mg Tab) 5 mg PO DAILY NALDO Heparin Sodium (Porcine) (Heparin Sodium 5,000 Units/Ml Vial) 5,000 units IVPUSH ONETIME ONE Stop: 07/10/21 22:46 Heparin Sodium/Dextrose (Heparin 25,000 Units In D5w 500 Ml) 25,000 units in 500 mls @ 26 mls/hr IV TITRATE NALDO; Protocol Insulin Glargine (Insulin Glargine,Hum.Rec.Anlog 100 Unit/Ml 3 Ml Pen) 20 unit SUBCUT BEDTIME NALDO Insulin Human Lispro (Insulin Lispro 100 Unit/Ml 3 Ml Kwikpen) 0 unit SUBCUT QIDACANDBED NALDO; Protocol Levothyroxine Sodium (Levothyroxine 50 Mcg Tab) 50 mcg PO ACBREAKFAST [facility] Carbidopa/Levodopa 25-250mg Tablet Ptom 1 tab PO 5XDAY NALDO Ondansetron HCl (Ondansetron 4 Mg/2 Ml Sdv) 4 mg IV Q6H PRN PRN Reason: Nausea/Vomiting Pantoprazole Sodium (Pantoprazole 40 Mg Tab.Cr) 40 mg PO BID NALDO Senna/Docusate Sodium (Docusate Sodium/Sennosides 50-8.6 Mg Tab) 2 tab PO BID P RN PRN Reason: Constipation Tamsulosin HCl (Tamsulosin 0.4 Mg Cap.Er) 0.4 mg PO BEDTIME NALDO Trospium (Trospium 20 Mg Tab) 20 mg PO BIDAC NALDO - Free Text/Narrative Note: I have seen and examined the patient independently of RUDDY Bello. I have discussed the case with him. I have also reviewed and agree with the plan of care as outlined by him. Please see orders.
[2021-07-10] MEDS ORDERED: Pantoprazole 40 MG Tab.CR PO ONE (13:53)
[2021-07-10] MEDS ORDERED: Albuterol/Ipratropium 3.0-0.5 MG/3 ML Neb Soln NEB PRN (14:09)
[2021-07-10] MEDS ORDERED: Albuterol 6.7 GM Inhaler INH PRN (14:09)
[2021-07-10] MEDS ORDERED: Ondansetron 4 MG/2 ML SDV IV PRN (14:09)
[2021-07-10] MEDS: Insulin Lispro 100 Unit/ML 3 ML KwikPen SUBCUT SCH ×2 (17:02→21:52)
[2021-07-10] MEDS: CARBIDOPA PO SCH ×2 (18:49→21:49)
[2021-07-10] MEDS: LEVODOPA PO SCH ×2 (18:49→21:49)
[2021-07-10] MEDS: Tamsulosin 0.4 MG Cap.ER PO SCH (20:22)
[2021-07-10] MEDS: Pantoprazole 40 MG Tab.CR PO SCH (20:22)
[2021-07-10] MEDS: Acetaminophen 325 MG Tab PO PRN (20:32)
[2021-07-10] MEDS: Insulin Glargine,Hum.Rec.Anlog 100 UNIT/ML 3 ML Pen SUBCUT SCH (21:53)
[2021-07-10] MEDS ORDERED: Heparin Sodium 5,000 Units/ML Vial IVPUSH ONE (22:45)
[2021-07-10] MEDS: Heparin Sodium/D5W 25,000 UNITS/500 ML BAG IV SCH (22:55)
[2021-07-11] MEDS: Acetaminophen 325 MG Tab PO PRN ×3 (02:50→23:45)
[2021-07-11] MEDS: Trospium 20 MG Tab PO SCH ×2 (06:10→16:38)
[2021-07-11] MEDS: Levothyroxine 50 MCG Tab PO SCH (06:11)
[2021-07-11] MEDS: LEVODOPA PO SCH ×5 (06:12→21:14)
[2021-07-11] MEDS: CARBIDOPA PO SCH ×5 (06:12→21:14)
[2021-07-11] MEDS: Insulin Lispro 100 Unit/ML 3 ML KwikPen SUBCUT SCH ×4 (06:15→21:18)
[2021-07-11] MEDS ORDERED: Magnesium Sulfate/Water 2 GM in Premix Bag 1 BAG IV ONE (07:04)
--- NOTE | 2021-07-11 07:08 | PCM.PN ---
- General Info Date of Service: 07/11/21 Admission Dx/Problem (Free Text): Admission Diagnosis/Problem Admission Diagnosis/Problem Pulmonary embolism Functional Status: Reports: Pain Controlled, Tolerating Diet, Ambulating, Urinating. Denies: New Symptoms - Review of Systems General: Reports: No Symptoms, Weakness (chronic ). Denies: Fever, Fatigue, Malaise, Chills HEENT: Reports: No Symptoms. Denies: Headaches, Sore Throat Pulmonary: Reports: Shortness of Breath, Cough. Denies: Pleuritic Chest Pain, Sputum, Wheezing Cardiovascular: Reports: No Symptoms, Dyspnea on Exertion. Denies: Chest Pain, Palpitations, Edema, Lightheadedness Gastrointestinal: Reports: No Symptoms. Denies: Abdominal Pain, Constipation, Nausea, Vomiting Genitourinary: Reports: No Symptoms. Denies: Pain Musculoskeletal: Reports: Back Pain Skin: Reports: No Symptoms. Denies: Cyanosis Neurological: Reports: Pre-Existing Deficit (Parkinson's disease), Tremors (Chronic), Difficulty Walking (Chronic), Weakness, Gait Disturbance (Chronic). Denies: Confusion, Dizziness, Numbness, Paresthesia, Trouble Speaking Psychiatric: Reports: No Symptoms - Patient Data Vitals - Most Recent: Last Vital Signs Temp 98.7 F 07/11/21 00:00 Pulse 80 07/11/21 05:03 Resp 20 07/11/21 05:03 BP 138/58 L 07/11/21 05:03 Pulse Ox 96 07/11/21 05:03 Weight - Most Recent: 220 lb 14.4 oz I&O - Last 24 Hours: Intake & Output 07/10/21 07/11/21 07/11/21 22:59 06:59 14:59 Intake Total 800 Output Total 625 875 Balance -625 -75 Lab Results Last 24 Hours: Laboratory Results - last 24 hr 07/10/21 07/10/21 07/10/21 Range/Units 10:15 10:15 10:15 WBC 9.05 (4.23-9.07) K/mm3 RBC 3.94 L (4.63-6.08) M/mm3 Hgb 12.0 L (13.7-17.5) gm/dl Hct 38.6 L (40.1-51.0) % MCV 98.0 H (79.0-92.2) fl MCH 30.5 (25.7-32.2) pg MCHC 31.1 L (32.2-35.5) g/dl RDW Std Deviation 51.3 H (35.1-43.9) fL Plt Count 211 (163-337) K/mm3 MPV 9.5 (9.4-12.3) fl Neut % (Auto) 80.7 H (34.0-67.9) % Lymph % (Auto) 9.3 L (21.8-53.1) % [place] % (Auto) 8.3 (5.3-12.2) % Eos % (Auto) 0.9 (0.8-7.0) Baso % (Auto) 0.2 (0.1-1.2) % Neut # (Auto) 7.31 H (1.78-5.38) K/mm3 Lymph # (Auto) 0.84 L (1.32-3.57) K/mm3 [place] # (Auto) 0.75 (0.30-0.82) K/mm3 Eos # (Auto) 0.08 (0.04-0.54) K/mm3 Baso # (Auto) 0.02 (0.01-0.08) K/mm3 PT (9.7-12.0) SECONDS INR APTT (21.7-31.4) SECONDS D-Dimer, Quantitative 5.52 H (0.19-0.50) mg/L Sodium 140 (136-145) mEq/L Potassium 4.3 (3.5-5.1) mEq/L Chloride 100 (98-107) mEq/L Carbon Dioxide 31 (21-32) mEq/L Anion Gap 13.3 (5-15) BUN 16 (7-18) mg/dL Creatinine 0.8 (0.7-1.3) mg/dL Est Cr Clr Drug Dosing TNP Estimated GFR (MDRD) > 60 (>60) mL/min BUN/Creatinine Ratio 20.0 H (14-18) Glucose 192 H (70-99) mg/dL POC Glucose (70-99) mg/dL Calcium 8.8 (8.5-10.1) mg/dL Magnesium (1.8-2.4) mg/dL Troponin I < 0.017 (0.00-0.056) ng/mL 07/10/21 07/10/21 07/10/21 Range/Units 15:09 15:09 16:52 WBC (4.23-9.07) K/mm3 RBC (4.63-6.08) M/mm3 Hgb (13.7-17.5) gm/dl Hct (40.1-51.0) % MCV (79.0-92.2) fl MCH (25.7-32.2) pg MCHC (32.2-35.5) g/dl RDW Std Deviation (35.1-43.9) fL Plt Count (163-337) K/mm3 MPV (9.4-12.3) fl Neut % (Auto) (34.0-67.9) % Lymph % (Auto) (21.8-53.1) % [place] % (Auto) (5.3-12.2) % Eos % (Auto) (0.8-7.0) Baso % (Auto) (0.1-1.2) % Neut # (Auto) (1.78-5.38) K/mm3 Lymph # (Auto) (1.32-3.57) K/mm3 [place] # (Auto) (0.30-0.82) K/mm3 Eos # (Auto) (0.04-0.54) K/mm3 Baso # (Auto) (0.01-0.08) K/mm3 PT 11.4 (9.7-12.0) SECONDS INR 1.03 APTT 34.4 H (21.7-31.4) SECONDS D-Dimer, Quantitative (0.19-0.50) mg/L Sodium (136-145) mEq/L Potassium (3.5-5.1) mEq/L Chloride (98-107) mEq/L Carbon Dioxide (21-32) mEq/L Anion Gap (5-15) BUN (7-18) mg/dL Creatinine (0.7-1.3) mg/dL Est Cr Clr Drug Dosing Estimated GFR (MDRD) (>60) mL/min BUN/Creatinine Ratio (14-18) Glucose (70-99) mg/dL POC Glucose 226 H (70-99) mg/dL Calcium (8.5-10.1) mg/dL Magnesium (1.8-2.4) mg/dL Troponin I (0.00-0.056) ng/mL 07/10/21 07/11/21 07/11/21 Range/Units 21:51 04:37 04:37 WBC 6.00 (4.23-9.07) K/mm3 RBC 3.67 L (4.63-6.08) M/mm3 Hgb 11.2 L (13.7-17.5) gm/dl Hct 35.7 L (40.1-51.0) % MCV 97.3 H (79.0-92.2) fl MCH 30.5 (25.7-32.2) pg MCHC 31.4 L (32.2-35.5) g/dl RDW Std Deviation 50.3 H (35.1-43.9) fL Plt Count 195 (163-337) K/mm3 MPV 9.7 (9.4-12.3) fl Neut % (Auto) 66.0 (34.0-67.9) % Lymph % (Auto) 17.7 L (21.8-53.1) % [place] % (Auto) 12.2 (5.3-12.2) % Eos % (Auto) 2.3 (0.8-7.0) Baso % (Auto) 0.3 (0.1-1.2) % Neut # (Auto) 3.96 (1.78-5.38) K/mm3 Lymph # (Auto) 1.06 L (1.32-3.57) K/mm3 [place] # (Auto) 0.73 (0.30-0.82) K/mm3 Eos # (Auto) 0.14 (0.04-0.54) K/mm3 Baso # (Auto) 0.02 (0.01-0.08) K/mm3 PT (9.7-12.0) SECONDS INR APTT (21.7-31.4) SECONDS D-Dimer, Quantitative (0.19-0.50) mg/L Sodium 142 (136-145) mEq/L Potassium 3.9 (3.5-5.1) mEq/L Chloride 105 (98-107) mEq/L Carbon Dioxide 30 (21-32) mEq/L Anion Gap 10.9 (5-15) BUN 14 (7-18) mg/dL Creatinine 0.6 L (0.7-1.3) mg/dL Est Cr Clr Drug Dosing 129.39 Estimated GFR (MDRD) > 60 (>60) mL/min BUN/Creatinine Ratio 23.3 H (14-18) Glucose 82 (70-99) mg/dL POC Glucose 205 H (70-99) mg/dL Calcium 8.5 (8.5-10.1) mg/dL Magnesium 1.7 L (1.8-2.4) mg/dL Troponin I (0.00-0.056) ng/mL 07/11/21 07/11/21 Range/Units 04:37 06:14 WBC (4.23-9.07) K/mm3 RBC (4.63-6.08) M/mm3 Hgb (13.7-17.5) gm/dl Hct (40.1-51.0) % MCV (79.0-92.2) fl MCH (25.7-32.2) pg MCHC (32.2-35.5) g/dl RDW Std Deviation (35.1-43.9) fL Plt Count (163-337) K/mm3 MPV (9.4-12.3) fl Neut % (Auto) (34.0-67.9) % Lymph % (Auto) (21.8-53.1) % [place] % (Auto) (5.3-12.2) % Eos % (Auto) (0.8-7.0) Baso % (Auto) (0.1-1.2) % Neut # (Auto) (1.78-5.38) K/mm3 Lymph # (Auto) (1.32-3.57) K/mm3 [place] # (Auto) (0.30-0.82) K/mm3 Eos # (Auto) (0.04-0.54) K/mm3 Baso # (Auto) (0.01-0.08) K/mm3 PT (9.7-12.0) SECONDS INR APTT 45.6 H (21.7-31.4) SECONDS D-Dimer, Quantitative (0.19-0.50) mg/L Sodium (136-145) mEq/L Potassium (3.5-5.1) mEq/L Chloride (98-107) mEq/L Carbon Dioxide (21-32) mEq/L Anion Gap (5-15) BUN (7-18) mg/dL Creatinine (0.7-1.3) mg/dL Est Cr Clr Drug Dosing Estimated GFR (MDRD) (>60) mL/min BUN/Creatinine Ratio (14-18) Glucose (70-99) mg/dL POC Glucose 97 (70-99) mg/dL Calcium (8.5-10.1) mg/dL Magnesium (1.8-2.4) mg/dL Troponin I (0.00-0.056) ng/mL Med Orders - Current: Current Medications Acetaminophen (Acetaminophen 325 Mg Tab) 650 mg PO Q4H PRN PRN Reason: Pain (Mild 1-3)/fever Last Admin: 07/11/21 02:50 Dose: 650 mg Documented by: Albuterol (Albuterol 6.7 Gm Inhaler) 0 gm INH Q2H PRN PRN Reason: SOB/Wheezing Albuterol/Ipratropium (Albuterol/Ipratropium 3.0-0.5 Mg/3 Ml Neb Soln) 3 ml NEB QIDRT PRN PRN Reason: Shortness Of Breath/wheezing Finasteride (Finasteride 5 Mg Tab) 5 mg PO DAILY NALDO Heparin Sodium/Dextrose (Heparin 25,000 Units In D5w 500 Ml) 25,000 units in 500 mls @ 26 mls/hr IV TITRATE NALDO; Protocol Last Admin: 07/10/21 22:55 Dose: 26 mls/hr Documented by: Magnesium Sulfate 2 gm/ Premix 50 mls @ 25 mls/hr IV ONETIME ONE Stop: 07/11/21 09:03 Insulin Glargine (Insulin Glargine,Hum.Rec.Anlog 100 Unit/Ml 3 Ml Pen) 20 unit SUBCUT BEDTIME NALDO Last Admin: 07/10/21 21:53 Dose: 20 units Documented by: Insulin Human Lispro (Insulin Lispro 100 Unit/Ml 3 Ml Kwikpen) 0 unit SUBCUT QIDACANDBED NALDO; Protocol Last Admin: 07/11/21 06:15 Dose: Not Given Documented by: Levothyroxine Sodium (Levothyroxine 50 Mcg Tab) 50 mcg PO ACBREAKFAST NALDO Last Admin: 07/11/21 06:11 Dose: 50 mcg Documented by: Carbidopa/Levodopa 25-250mg Tablet Ptom 1 tab PO 5XDAY [facility] Last Admin: 07/11/21 06:12 Dose: 1 tab Documented by: Ondansetron HCl (Ondansetron 4 Mg/2 Ml Sdv) 4 mg IV Q6H PRN PRN Reason: Nausea/Vomiting Pantoprazole Sodium (Pantoprazole 40 Mg Tab.Cr) 40 mg PO BID [facility] Last Admin: 07/10/21 20:22 Dose: 40 mg Documented by: Senna/Docusate Sodium (Docusate Sodium/Sennosides 50-8.6 Mg Tab) 2 tab PO BID PRN PRN Reason: Constipation Tamsulosin HCl (Tamsulosin 0.4 Mg Cap.Er) 0.4 mg PO BEDTIME [facility] Last Admin: 07/10/21 20:22 Dose: 0.4 mg Documented by: Trospium (Trospium 20 Mg Tab) 20 mg PO BIDAC [facility] Last Admin: 07/11/21 06:10 Dose: 20 mg Documented by: Discontinued Medications Enoxaparin Sodium (Enoxaparin 100 Mg/1 Ml Syringe) 100 mg SUBCUT ONETIME ONE Stop: 07/10/21 10:46 Last Admin: 07/10/21 10:59 Dose: 100 mg Documented by: Heparin Sodium (Porcine) (Heparin Sodium 5,000 Units/Ml Vial) 5,000 units IVPUSH ONETIME ONE Stop: 07/10/21 22:46 Last Admin: 07/10/21 22:47 Dose: 5,000 units Documented by: Sodium Chloride (Normal Saline) 100 mls @ 60 mls/hr IV ASDIRECTED [facility] Last Admin: 07/10/21 10:23 Dose: 60 mls/hr Documented by: Iopamidol (Iopamidol 755 Mg/Ml 100 Ml Bottle) 100 ml IVPUSH ONETIME ONE Stop: 07/10/21 09:03 Last Admin: 07/10/21 10:23 Dose: 100 ml Documented by: Pantoprazole Sodium (Pantoprazole 40 Mg Tab.Cr) 40 mg PO ONETIME ONE Stop: 07/10/21 13:54 Last Admin: 07/10/21 15:53 Dose: 40 mg Documented by: Sodium Chloride (Sodium Chloride 0.9% 10 Ml Syringe) 10 ml FLUSH ONETIME ONE Stop: 07/10/21 09:03 Last Admin: 07/10/21 10:15 Dose: 10 ml Documented by: - Exam Quality Assessment: Supplemental Oxygen (2L), DVT Prophylaxis. No: Urine Catheter General: Alert, Oriented, Cooperative, No Acute Distress HEENT: Pupils Equal, Pupils Reactive, Mucous Membr. Moist/[place] Neck: Supple, Trachea Midline Lungs: Clear to Auscultation, Normal Respiratory Effort, Decreased Breath Sounds (Mildly) Cardiovascular: Regular Rate, Regular Rhythm GI/Abdominal Exam: Normal Bowel Sounds, Soft, Non-Tender, No Distention (Male) Exam: Deferred Back Exam: Full Range of Motion, Decreased Range of Motion Extremities: Normal Inspection, Non-Tender, No Pedal Edema, Normal Capillary Refill, Limited Range of Motion Skin: Warm, Dry, Intact Neurological: No New Focal Deficit Psy/Mental Status: Alert, Normal Affect, Normal Mood - Patient Data Lab Results Last 24 hrs: Laboratory Results - last 24 hr 07/10/21 07/10/21 07/10/21 Range/Units 10:15 10:15 10:15 WBC 9.05 (4.23-9.07) K/mm3 RBC 3.94 L (4.63-6.08) M/mm3 Hgb 12.0 L (13.7-17.5) gm/dl Hct 38.6 L (40.1-51.0) % MCV 98.0 H (79.0-92.2) fl MCH 30.5 (25.7-32.2) pg MCHC 31.1 L (32.2-35.5) g/dl RDW Std Deviation 51.3 H (35.1-43.9) fL Plt Count 211 (163-337) K/mm3 MPV 9.5 (9.4-12.3) fl Neut % (Auto) 80.7 H (34.0-67.9) % Lymph % (Auto) 9.3 L (21.8-53.1) % [place] % (Auto) 8.3 (5.3-12.2) % Eos % (Auto) 0.9 (0.8-7.0) Baso % (Auto) 0.2 (0.1-1.2) % Neut # (Auto) 7.31 H (1.78-5.38) K/mm3 Lymph # (Auto) 0.84 L (1.32-3.57) K/mm3 [place] # (Auto) 0.75 (0.30-0.82) K/mm3 Eos # (Auto) 0.08 (0.04-0.54) K/mm3 Baso # (Auto) 0.02 (0.01-0.08) K/mm3 PT (9.7-12.0) SECONDS INR APTT (21.7-31.4) SECONDS D-Dimer, Quantitative 5.52 H (0.19-0.50) mg/L Sodium 140 (136-145) mEq/L Potassium 4.3 (3.5-5.1) mEq/L Chloride 100 (98-107) mEq/L Carbon Dioxide 31 (21-32) mEq/L Anion Gap 13.3 (5-15) BUN 16 (7-18) mg/dL Creatinine 0.8 (0.7-1.3) mg/dL Est Cr Clr Drug Dosing TNP Estimated GFR (MDRD) > 60 (>60) mL/min BUN/Creatinine Ratio 20.0 H (14-18) Glucose 192 H (70-99) mg/dL POC Glucose (70-99) mg/dL Calcium 8.8 (8.5-10.1) mg/dL Magnesium (1.8-2.4) mg/dL Troponin I < 0.017 (0.00-0.056) ng/mL 07/10/21 07/10/21 07/10/21 Range/Units 15:09 15:09 16:52 WBC (4.23-9.07) K/mm3 RBC (4.63-6.08) M/mm3 Hgb (13.7-17.5) gm/dl Hct (40.1-51.0) % MCV (79.0-92.2) fl MCH (25.7-32.2) pg MCHC (32.2-35.5) g/dl RDW Std Deviation (35.1-43.9) fL Plt Count (163-337) K/mm3 MPV (9.4-12.3) fl Neut % (Auto) (34.0-67.9) % Lymph % (Auto) (21.8-53.1) % [place] % (Auto) (5.3-12.2) % Eos % (Auto) (0.8-7.0) Baso % (Auto) (0.1-1.2) % Neut # (Auto) (1.78-5.38) K/mm3 Lymph # (Auto) (1.32-3.57) K/mm3 [place] # (Auto) (0.30-0.82) K/mm3 Eos # (Auto) (0.04-0.54) K/mm3 Baso # (Auto) (0.01-0.08) K/mm3 PT 11.4 (9.7-12.0) SECONDS INR 1.03 APTT 34.4 H (21.7-31.4) SECONDS D-Dimer, Quantitative (0.19-0.50) mg/L Sodium (136-145) mEq/L Potassium (3.5-5.1) mEq/L Chloride (98-107) mEq/L Carbon Dioxide (21-32) mEq/L Anion Gap (5-15) BUN (7-18) mg/dL Creatinine (0.7-1.3) mg/dL Est Cr Clr Drug Dosing Estimated GFR (MDRD) (>60) mL/min BUN/Creatinine Ratio (14-18) Glucose (70-99) mg/dL POC Glucose 226 H (70-99) mg/dL Calcium (8.5-10.1) mg/dL Magnesium (1.8-2.4) mg/dL Troponin I (0.00-0.056) ng/mL 07/10/21 07/11/21 07/11/21 Range/Units 21:51 04:37 04:37 WBC 6.00 (4.23-9.07) K/mm3 RBC 3.67 L (4.63-6.08) M/mm3 Hgb 11.2 L (13.7-17.5) gm/dl Hct 35.7 L (40.1-51.0) % MCV 97.3 H (79.0-92.2) fl MCH 30.5 (25.7-32.2) pg MCHC 31.4 L (32.2-35.5) g/dl RDW Std Deviation 50.3 H (35.1-43.9) fL Plt Count 195 (163-337) K/mm3 MPV 9.7 (9.4-12.3) fl Neut % (Auto) 66.0 (34.0-67.9) % Lymph % (Auto) 17.7 L (21.8-53.1) % [place] % (Auto) 12.2 (5.3-12.2) % Eos % (Auto) 2.3 (0.8-7.0) Baso % (Auto) 0.3 (0.1-1.2) % Neut # (Auto) 3.96 (1.78-5.38) K/mm3 Lymph # (Auto) 1.06 L (1.32-3.57) K/mm3 [place] # (Auto) 0.73 (0.30-0.82) K/mm3 Eos # (Auto) 0.14 (0.04-0.54) K/mm3 Baso # (Auto) 0.02 (0.01-0.08) K/mm3 PT (9.7-12.0) SECONDS INR APTT (21.7-31.4) SECONDS D-Dimer, Quantitative (0.19-0.50) mg/L Sodium 142 (136-145) mEq/L Potassium 3.9 (3.5-5.1) mEq/L Chloride 105 (98-107) mEq/L Carbon Dioxide 30 (21-32) mEq/L Anion Gap 10.9 (5-15) BUN 14 (7-18) mg/dL Creatinine 0.6 L (0.7-1.3) mg/dL Est Cr Clr Drug Dosing 129.39 Estimated GFR (MDRD) > 60 (>60) mL/min BUN/Creatinine Ratio 23.3 H (14-18) Glucose 82 (70-99) mg/dL POC Glucose 205 H (70-99) mg/dL Calcium 8.5 (8.5-10.1) mg/dL Magnesium 1.7 L (1.8-2.4) mg/dL Troponin I (0.00-0.056) ng/mL 07/11/21 07/11/21 Range/Units 04:37 06:14 WBC (4.23-9.07) K/mm3 RBC (4.63-6.08) M/mm3 Hgb (13.7-17.5) gm/dl Hct (40.1-51.0) % MCV (79.0-92.2) fl MCH (25.7-32.2) pg MCHC (32.2-35.5) g/dl RDW Std Deviation (35.1-43.9) fL Plt Count (163-337) K/mm3 MPV (9.4-12.3) fl Neut % (Auto) (34.0-67.9) % Lymph % (Auto) (21.8-53.1) % [place] % (Auto) (5.3-12.2) % Eos % (Auto) (0.8-7.0) Baso % (Auto) (0.1-1.2) % Neut # (Auto) (1.78-5.38) K/mm3 Lymph # (Auto) (1.32-3.57) K/mm3 [place] # (Auto) (0.30-0.82) K/mm3 Eos # (Auto) (0.04-0.54) K/mm3 Baso # (Auto) (0.01-0.08) K/mm3 PT (9.7-12.0) SECONDS INR APTT 45.6 H (21.7-31.4) SECONDS D-Dimer, Quantitative (0.19-0.50) mg/L Sodium (136-145) mEq/L Potassium (3.5-5.1) mEq/L Chloride (98-107) mEq/L Carbon Dioxide (21-32) mEq/L Anion Gap (5-15) BUN (7-18) mg/dL Creatinine (0.7-1.3) mg/dL Est Cr Clr Drug Dosing Estimated GFR (MDRD) (>60) mL/min BUN/Creatinine Ratio (14-18) Glucose (70-99) mg/dL POC Glucose 97 (70-99) mg/dL Calcium (8.5-10.1) mg/dL Magnesium (1.8-2.4) mg/dL Troponin I (0.00-0.056) ng/mL Result Diagrams: 07/11/21 04:37 07/11/21 04:37 Sepsis Event Note - Evaluation Sepsis Screening Result: No Definite Risk - Focused Exam Vital Signs: Vital Signs Temp Temp Pulse Pulse Resp BP BP 12/01/21 05:03 80 20 138/58 L 07/11/21 04:00 81 21 H 147/68 H 07/11/21 01:28 65 22 H 120/63 07/11/21 00:00 98.7 F 74 13 118/57 L 07/10/21 22:00 78 132/57 L 07/10/21 20:32 99.2 F 07/10/21 20:29 07/10/21 20:17 99.2 F 104 H 26 H 145/65 H Pulse Ox Pulse Ox 07/11/21 05:03 96 07/11/21 04:00 95 07/11/21 01:28 98 07/11/21 00:00 96 07/10/21 22:00 96 07/10/21 20:32 07/10/21 20:29 94 L 07/10/21 20:17 95 - Problem List & Annotations (1) Chronic respiratory failure with hypoxia, on home oxygen therapy SNOMED Code(s): 425485024 Code(s): J96.11 - CHRONIC RESPIRATORY FAILURE WITH HYPOXIA; Z99.81 - DEPENDENCE ON SUPPLEMENTAL OXYGEN Status: Chronic Priority: High Current Visit: Yes (2) History of GI bleed SNOMED Code(s): 067645232 Code(s): Z87.19 - PERSONAL HISTORY OF OTHER DISEASES OF THE DIGESTIVE SYSTEM Status: Chronic Priority: Medium Current Visit: No (3) Pulmonary emboli SNOMED Code(s): 78723925 Code(s): I26.99 - OTHER PULMONARY EMBOLISM WITHOUT ACUTE COR PULMONALE Status: Acute Priority: High Current Visit: Yes Qualifiers: Pulmonary embolism type: multiple subsegmental (without acute cor pulmonale) Qualified Code(s): I26.94 - Multiple subsegmental pulmonary emboli without acute cor pulmonale (4) Parkinson's disease dementia SNOMED Code(s): 636499461599827 Code(s): G20 - PARKINSON'S DISEASE; F02.80 - DEMENTIA IN OTH DISEASES CLASSD ELSWHR W/O BEHAVRL DISTURB Status: Chronic Priority: Medium Current Visit: No Qualifiers: Dementia behavioral disturbance: without behavioral disturbance Qualified Code(s): G20 - Parkinson's disease; F02.80 - Dementia in other diseases classified elsewhere without behavioral disturbance (5) Elevated d-dimer SNOMED Code(s): 604627142 Code(s): R79.89 - OTHER SPECIFIED ABNORMAL FINDINGS OF BLOOD CHEMISTRY Status: Acute Priority: High Current Visit: Yes (6) Diabetes mellitus type 2 in nonobese SNOMED Code(s): 009127490 Code(s): E11.9 - TYPE 2 DIABETES MELLITUS WITHOUT COMPLICATIONS Status: Chronic Priority: Medium Current Visit: No (7) HLD (hyperlipidemia) SNOMED Code(s): 80900923 Code(s): E78.5 - HYPERLIPIDEMIA, UNSPECIFIED Status: Chronic Priority: Low Current Visit: No Qualifiers: Hyperlipidemia type: unspecified Qualified Code(s): E78.5 - Hyperlipidemia, unspecified (8) HTN (hypertension) SNOMED Code(s): 98202920 Code(s): I10 - ESSENTIAL (PRIMARY) HYPERTENSION Status: Chronic Priority: Medium Current Visit: No Qualifiers: Hypertension type: unspecified Qualified Code(s): I10 - Essential (primary) hypertension (9) Obstructive sleep apnea on CPAP SNOMED Code(s): 93066202 Code(s): G47.33 - OBSTRUCTIVE SLEEP APNEA (ADULT) (PEDIATRIC); Z99.89 - DEPENDENCE ON OTHER ENABLING MACHINES AND DEVICES Status: Chronic Priority: Medium Current Visit: No (10) Neurogenic bladder SNOMED Code(s): 775861713 Code(s): N31.9 - NEUROMUSCULAR DYSFUNCTION OF BLADDER, UNSPECIFIED Status: Chronic Priority: Low Current Visit: No (11) S/P TURP SNOMED Code(s): 677404988, 31054735, 309969258 Code(s): Z90.79 - ACQUIRED ABSENCE OF OTHER GENITAL ORGAN(S) Status: Chronic Priority: Low Current Visit: No (12) Parkinsons disease SNOMED Code(s): 86417489 Code(s): G20 - PARKINSON'S DISEASE Status: Chronic Priority: Medium Current Visit: No (13) Hypothyroidism SNOMED Code(s): 54611117 Code(s): E03.9 - HYPOTHYROIDISM, UNSPECIFIED Status: Chronic Priority: Low Current Visit: No Qualifiers: Hypothyroidism type: unspecified Qualified Code(s): E03.9 - Hypothyroidism, unspecified (14) History of COVID-19 SNOMED Code(s): 322551640304793155, 649152436088779821 Code(s): Z86.16 - PERSONAL HISTORY OF COVID-19 Status: Chronic Priority: Medium Current Visit: Yes (15) Hypomagnesemia SNOMED Code(s): 626150061 Code(s): E83.42 - HYPOMAGNESEMIA Status: Acute Priority: Medium Current Visit: Yes - Problem List Review Problem List Initiated/Reviewed/Updated: Yes - My Orders Last 24 Hours: My Active Orders 07/10/21 13:51 Admission Status [Patient Status] [ADT] Routine 07/10/21 13:52 Cardiac Monitoring [RC] . DIRECTED 07/10/21 13:53 Code Status [Resuscitation Status] Stat 07/10/21 14:09 Height and Weight [RC] 0400 Let Patient Sleep Protocol [RC] BEDTIME Oxygen Therapy [RC] ASDIRECTED Up to Chair [RC] ASDIRECTED Vital Signs [RC] Q4H Consult to Case Management/Pattern Weaver [CONS] Routine Consult to Spiritual Care [CONS] Routine Acetaminophen [TylenoL] 650 mg PO Q4H PRN Albuterol [Proventil HFA] See Dose Instructions INH Q2H PRN Albuterol/Ipratropium [DuoNeb 3.0-0.5 MG/3 ML] 3 ml NEB QIDRT PRN Docusate Sodium/Sennosides [Senna Plus] 2 tab PO BID PRN Ondansetron [Zofran] 4 mg IV Q6H PRN 07/10/21 14:10 Intake and Output [RC] Q12H Pulse Oximetry [RC] PRN Up With Assistance [RC] ASDIRECTED 07/10/21 14:11 RT Aerosol Therapy [RC] ASDIRECTED 07/10/21 14:12 OT Evaluation and Treatment [CONS] Routine PT Evaluation and Treatment [CONS] Routine 07/10/21 14:13 Precautions [COMM] Routine 07/10/21 14:19 Blood Glucose Check, Bedside [RC] QIDACANDBED 07/10/21 14:21 CPAP Noctural Home [RT BiPAP/CPAP] [RC] ASDIRECTED 07/10/21 Dinner Consistent Carbohydrate Diet [DIET] Insulin Lispro [HumaLOG] See Protocol SUBCUT QIDACANDBED 07/10/21 18:00 Carbidopa/Levodopa 1 tab PO DAY 07/10/21 21:00 Insulin Glargine,Hum.Rec.Anlog [Semglee Pen] 20 unit SUBCUT BEDTIME Pantoprazole [ProTONIX] 40 mg PO BID Tamsulosin [Flomax] 0.4 mg PO BEDTIME 07/10/21 22:45 Heparin Sodium/D5W [Heparin 25,000 Units in D5W 500 ML] 25,000 units in 500 ml IV TITRATE 07/11/21 06:00 Levothyroxine [Synthroid] 50 mcg PO ACBREAKFAST Trospium [Sanctura] 20 mg PO BIDAC 07/11/21 07:04 Magnesium Sulfate/Water [Magnesium Sulfate in Water 2 GM/50 ML] 2 gm Premix Bag 1 bag IV ONETIME 07/11/21 09:00 Finasteride [Proscar] 5 mg PO DAILY 07/12/21 05:11 BASIC METABOLIC PANEL,BMP [CHEM] AM CBC WITH AUTO DIFF [HEME] AM MAGNESIUM [CHEM] AM 07/13/21 05:11 BASIC METABOLIC PANEL,BMP [CHEM] AM CBC WITH AUTO DIFF [HEME] AM MAGNESIUM [CHEM] AM 07/14/21 05:11 BASIC METABOLIC PANEL,BMP [CHEM] AM CBC WITH AUTO DIFF [HEME] AM MAGNESIUM [CHEM] AM - Assessment Assessment:: 07/11/2021 This is a 71-year-old male well-known to this floor due to prior hospitalization for COVID-19 pneumonia who was admitted due to pulmonary emboli. He was given Lovenox in the ED and was transitioned to a heparin drip of late last night due to concerns over prior GI bleeding. Patient has been doing overall quite well. He remains on his baseline 2 L of oxygen with saturations in the low 90s. He does desaturate somewhat with movement but this has been his baseline due to his Covid infection. Overall he has no real complaints and states he feels pretty good. He denies any current pain. Echocardiogram was obtained and is still pending. Labs today show WBC of 6.00. Hemoglobin is 11.2. Platelets 195,000. Neutrophils are normal at 66.0. aPTT was 45.6. Sodium was 142. Potassium 3.9. Chloride 105. Carbon dioxide 30. Anion gap 10.9. BUN is 14. Creatinine 0.9. GFR greater than 60. Glucose has been between 97 and 252. Calcium is 8.5. Magnesium was 1.7 and was supplemented with 2 g. Patient will remain on heparin drip for approximately 48 hours and then we will likely transition to Eliquis. Length of stay likely 2-3 more days pending continued stability and improvement. - Plan Plan:: Pulmonary emboli Elevated d-dimer History of GI bleed * Heparin drip VTE protocol * 5000 unit IV push bolus given * Monitor APTT as per VTE protocol * Daily labs * Echocardiogram obtained and pending * Discontinue home aspirin * Twice daily Protonix PO * Monitor for signs of GI bleeding Chronic respiratory failure with hypoxia, on home oxygen therapy Obstructive sleep apnea on CPAP History of COVID-19 * O2 as needed to keep saturations above 90% chronically on 2 L at home * CPAP at night * As needed DuoNebs * As needed albuterol MDI Parkinsons disease Parkinson's disease dementia * No acute concerns * PT/OT * Let me sleep protocol * Continue home medications * High fall risk Diabetes mellitus type 2 in nonobese * Long-acting insulin as ordered * Hold home p.o. diabetic meds * Medium intensity sliding scale insulin as ordered * Consistent carbohydrate diet HLD (hyperlipidemia) * No acute concerns * No home statins HTN (hypertension) * No acute concerns * Home medications as ordered * Monitor vital signs Neurogenic bladder S/P TURP * No acute concerns * Home medications as ordered Hypothyroidism * No acute concerns * Home levothyroxine as ordered Hypomagnesemia * Supplement * Monitor Code status: Full code PCP: Dr. Benitez VTE prophylaxis: Heparin drip as above Social: Patient lives at home with and has family support. Disposition: Patient admitted to ICU as a medicalsurgical overflow for treatment and monitoring of his PEs with relatively high risk of bleeding given prior GI bleed. Likely length of stay 3 to 4 days.
[2021-07-11] MEDS: Finasteride 5 MG Tab PO SCH (08:03)
[2021-07-11] MEDS: Pantoprazole 40 MG Tab.CR PO SCH ×2 (08:03→20:34)
[2021-07-11] MEDS: Heparin Sodium/D5W 25,000 UNITS/500 ML BAG IV SCH (14:26)
[2021-07-11] MEDS: Tamsulosin 0.4 MG Cap.ER PO SCH (20:34)
[2021-07-11] MEDS: Insulin Glargine,Hum.Rec.Anlog 100 UNIT/ML 3 ML Pen SUBCUT SCH (21:19)
[2021-07-12] MEDS: Heparin Sodium/D5W 25,000 UNITS/500 ML BAG IV SCH (04:00)
[2021-07-12 04:08] VITALS: BP 123/70
[2021-07-12] MEDS: Acetaminophen 325 MG Tab PO PRN (04:30)
[2021-07-12] MEDS: Trospium 20 MG Tab PO SCH (06:04)
[2021-07-12] MEDS: CARBIDOPA PO SCH ×2 (06:04→11:13)
[2021-07-12] MEDS: LEVODOPA PO SCH ×2 (06:04→11:13)
[2021-07-12] MEDS: Levothyroxine 50 MCG Tab PO SCH (06:04)
[2021-07-12] MEDS: Insulin Lispro 100 Unit/ML 3 ML KwikPen SUBCUT SCH ×2 (06:07→11:50)
--- NOTE | 2021-07-12 06:45 | PCM.PN ---
- General Info Date of Service: 07/12/21 Admission Dx/Problem (Free Text): Admission Diagnosis/Problem Admission Diagnosis/Problem Pulmonary embolism - Patient Data Vitals - Most Recent: Last Vital Signs Temp 97.7 F 07/12/21 04:00 Pulse 71 07/12/21 04:00 Resp 18 07/12/21 04:00 BP 123/70 07/12/21 04:00 Pulse Ox 97 07/12/21 06:14 Weight - Most Recent: 223 lb 14.4 oz I&O - Last 24 Hours: Intake & Output 07/11/21 07/11/21 07/12/21 14:59 22:59 06:59 Intake Total 180 1270 800 Output Total 1225 700 Balance 180 45 100 Lab Results Last 24 Hours: Laboratory Results - last 24 hr 07/11/21 07/11/21 07/11/21 Range/Units 10:18 12:48 16:23 APTT 42.7 H (21.7-31.4) SECONDS POC Glucose 252 H 198 H (70-99) mg/dL 07/11/21 07/11/21 07/12/21 Range/Units 19:23 21:18 02:00 APTT 49.7 H 76.4 H D (21.7-31.4) SECONDS POC Glucose 292 H (70-99) mg/dL 07/12/21 Range/Units 06:07 APTT (21.7-31.4) SECONDS POC Glucose 101 H (70-99) mg/dL Med Orders - Current: Current Medications Acetaminophen (Acetaminophen 325 Mg Tab) 650 mg PO Q4H PRN PRN Reason: Pain (Mild 1-3)/fever Last Admin: 07/12/21 04:30 Dose: 650 mg Documented by: Albuterol (Albuterol 6.7 Gm Inhaler) 0 gm INH Q2H PRN PRN Reason: SOB/Wheezing Albuterol/Ipratropium (Albuterol/Ipratropium 3.0-0.5 Mg/3 Ml Neb Soln) 3 ml NEB QIDRT PRN PRN Reason: Shortness Of Breath/wheezing Finasteride (Finasteride 5 Mg Tab) 5 mg PO DAILY NALDO Last Admin: 07/11/21 08:03 Dose: 5 mg Documented by: Heparin Sodium/Dextrose (Heparin 25,000 Units In D5w 500 Ml) 25,000 units in 500 mls @ 26 mls/hr IV TITRATE [facility]; Protocol Last Admin: 07/12/21 04:00 Dose: 34 mls/hr Documented by: Insulin Glargine (Insulin Glargine,Hum.Rec.Anlog 100 Unit/Ml 3 Ml Pen) 20 unit SUBCUT BEDTIME [facility] Last Admin: 07/11/21 21:19 Dose: 20 units Documented by: Insulin Human Lispro (Insulin Lispro 100 Unit/Ml 3 Ml Kwikpen) 0 unit SUBCUT QIDACANDBED [facility]; Protocol Last Admin: 07/12/21 06:07 Dose: Not Given Documented by: Levothyroxine Sodium (Levothyroxine 50 Mcg Tab) 50 mcg PO ACBREAKFAST [facility] Last Admin: 07/12/21 06:04 Dose: 50 mcg Documented by: Carbidopa/Levodopa 25-250mg Tablet Ptom 1 tab PO 5XDAY [facility] Last Admin: 07/12/21 06:04 Dose: 1 tab Documented by: Ondansetron HCl (Ondansetron 4 Mg/2 Ml Sdv) 4 mg IV Q6H PRN PRN Reason: Nausea/Vomiting Pantoprazole Sodium (Pantoprazole 40 Mg Tab.Cr) 40 mg PO BID [facility] Last Admin: 07/11/21 20:34 Dose: 40 mg Documented by: Senna/Docusate Sodium (Docusate Sodium/Sennosides 50-8.6 Mg Tab) 2 tab PO BID PRN PRN Reason: Constipation Tamsulosin HCl (Tamsulosin 0.4 Mg Cap.Er) 0.4 mg PO BEDTIME [facility] Last Admin: 07/11/21 20:34 Dose: 0.4 mg Documented by: Trospium (Trospium 20 Mg Tab) 20 mg PO BIDAC [facility] Last Admin: 07/12/21 06:04 Dose: 20 mg Documented by: Discontinued Medications Enoxaparin Sodium (Enoxaparin 100 Mg/1 Ml Syringe) 100 mg SUBCUT ONETIME ONE Stop: 07/10/21 10:46 Last Admin: 07/10/21 10:59 Dose: 100 mg Documented by: Heparin Sodium (Porcine) (Heparin Sodium 5,000 Units/Ml Vial) 5,000 units IVPUSH ONETIME ONE Stop: 07/10/21 22:46 Last Admin: 07/10/21 22:47 Dose: 5,000 units Documented by: Sodium Chloride (Normal Saline) 100 mls @ 60 mls/hr IV ASDIRECTED NALDO Last Admin: 07/10/21 10:23 Dose: 60 mls/hr Documented by: Magnesium Sulfate 2 gm/ Premix 50 mls @ 25 mls/hr IV ONETIME ONE Stop: 07/11/21 09:03 Last Admin: 07/11/21 07:58 Dose: 25 mls/hr Documented by: Iopamidol (Iopamidol 755 Mg/Ml 100 Ml Bottle) 100 ml IVPUSH ONETIME ONE Stop: 07/10/21 09:03 Last Admin: 07/10/21 10:23 Dose: 100 ml Documented by: Pantoprazole Sodium (Pantoprazole 40 Mg Tab.Cr) 40 mg PO ONETIME ONE Stop: 07/10/21 13:54 Last Admin: 07/10/21 15:53 Dose: 40 mg Documented by: Sodium Chloride (Sodium Chloride 0.9% 10 Ml Syringe) 10 ml FLUSH ONETIME ONE Stop: 07/10/21 09:03 Last Admin: 07/10/21 10:15 Dose: 10 ml Documented by: - Patient Data Lab Results Last 24 hrs: Laboratory Results - last 24 hr 07/11/21 07/11/21 07/11/21 Range/Units 10:18 12:48 16:23 APTT 42.7 H (21.7-31.4) SECONDS POC Glucose 252 H 198 H (70-99) mg/dL 07/11/21 07/11/21 07/12/21 Range/Units 19:23 21:18 02:00 APTT 49.7 H 76.4 H D (21.7-31.4) SECONDS POC Glucose 292 H (70-99) mg/dL 07/12/21 Range/Units 06:07 APTT (21.7-31.4) SECONDS POC Glucose 101 H (70-99) mg/dL Result Diagrams: 07/11/21 04:37 07/11/21 04:37 Sepsis Event Note - Evaluation Sepsis Screening Result: No Definite Risk - Focused Exam Vital Signs: Vital Signs Temp Pulse Resp BP Pulse Ox Pulse Ox 07/12/21 06:14 97 07/12/21 04:00 97.7 F 71 18 123/70 94 L 07/12/21 00:00 97.9 F 75 24 H 113/59 L 96 07/11/21 22:23 129/65 07/11/21 20:00 98.5 F 83 20 95 - Problem List & Annotations (1) Chronic respiratory failure with hypoxia, on home oxygen therapy SNOMED Code(s): 960218388 Code(s): J96.11 - CHRONIC RESPIRATORY FAILURE WITH HYPOXIA; Z99.81 - DEPENDENCE ON SUPPLEMENTAL OXYGEN Status: Chronic Priority: High Current Visit: Yes (2) History of GI bleed SNOMED Code(s): 141315596 Code(s): Z87.19 - PERSONAL HISTORY OF OTHER DISEASES OF THE DIGESTIVE SYSTEM Status: Chronic Priority: Medium Current Visit: No (3) Pulmonary emboli SNOMED Code(s): 78687951 Code(s): I26.99 - OTHER PULMONARY EMBOLISM WITHOUT ACUTE COR PULMONALE St atus: Acute Priority: High Current Visit: Yes Qualifiers: Pulmonary embolism type: multiple subsegmental (without acute cor pulmonale) Qualified Code(s): I26.94 - Multiple subsegmental pulmonary emboli without acute cor pulmonale (4) Parkinson's disease dementia SNOMED Code(s): 892923787320657 Code(s): G20 - PARKINSON'S DISEASE; F02.80 - DEMENTIA IN OTH DISEASES CLASSD ELSWHR W/O BEHAVRL DISTURB Status: Chronic Priority: Medium Current Visit: No Qualifiers: Dementia behavioral disturbance: without behavioral disturbance Qualified Code(s): G20 - Parkinson's disease; F02.80 - Dementia in other diseases classified elsewhere without behavioral disturbance (5) Elevated d-dimer SNOMED Code(s): 558602098 Code(s): R79.89 - OTHER SPECIFIED ABNORMAL FINDINGS OF BLOOD CHEMISTRY St atus: Acute Priority: High Current Visit: Yes (6) Diabetes mellitus type 2 in nonobese SNOMED Code(s): 284557513 Code(s): E11.9 - TYPE 2 DIABETES MELLITUS WITHOUT COMPLICATIONS Status: Chronic Priority: Medium Current Visit: No (7) HLD (hyperlipidemia) SNOMED Code(s): 41188760 Code(s): E78.5 - HYPERLIPIDEMIA, UNSPECIFIED Status: Chronic Priority: Low Current Visit: No Qualifiers: Hyperlipidemia type: unspecified Qualified Code(s): E78.5 - Hyperlipidemia, unspecified (8) HTN (hypertension) SNOMED Code(s): 71948265 Code(s): I10 - ESSENTIAL (PRIMARY) HYPERTENSION Status: Chronic Priority: Medium Current Visit: No Qualifiers: Hypertension type: unspecified Qualified Code(s): I10 - Essential (primary) hypertension (9) Obstructive sleep apnea on CPAP SNOMED Code(s): 91581182 Code(s): G47.33 - OBSTRUCTIVE SLEEP APNEA (ADULT) (PEDIATRIC); Z99.89 - DEPENDENCE ON OTHER ENABLING MACHINES AND DEVICES Status: Chronic Priority: Medium Current Visit: No (10) Neurogenic bladder SNOMED Code(s): 417054331 Code(s): N31.9 - NEUROMUSCULAR DYSFUNCTION OF BLADDER, UNSPECIFIED Status: Chronic Priority: Low Current Visit: No (11) S/P TURP SNOMED Code(s): 910325282, 64395835, 528912543 Code(s): Z90.79 - ACQUIRED ABSENCE OF OTHER GENITAL ORGAN(S) Status: Chronic Priority: Low Current Visit: No (12) Parkinsons disease SNOMED Code(s): 34562760 Code(s): G20 - PARKINSON'S DISEASE Status: Chronic Priority: Medium Current Visit: No (13) Hypothyroidism SNOMED Code(s): 21058121 Code(s): E03.9 - HYPOTHYROIDISM, UNSPECIFIED Status: Chronic Priority: Low Current Visit: No Qualifiers: Hypothyroidism type: unspecified Qualified Code(s): E03.9 - Hypothyroidism, unspecified (14) History of COVID-19 SNOMED Code(s): 405740774799053492, 779632741395633844 Code(s): Z86.16 - PERSONAL HISTORY OF COVID-19 Status: Chronic Priority: Medium Current Visit: Yes (15) Hypomagnesemia SNOMED Code(s): 229991684 Code(s): E83.42 - HYPOMAGNESEMIA Status: Acute Priority: Medium Current Visit: Yes - My Orders Last 24 Hours: My Active Orders 07/11/21 06:00 Levothyroxine [Synthroid] 50 mcg PO ACBREAKFAST Trospium [Sanctura] 20 mg PO BIDAC 07/11/21 09:00 Finasteride [Proscar] 5 mg PO DAILY 07/12/21 05:11 BASIC METABOLIC PANEL,BMP [CHEM] AM CBC WITH AUTO DIFF [HEME] AM MAGNESIUM [CHEM] AM 07/13/21 05:11 BASIC METABOLIC PANEL,BMP [CHEM] AM CBC WITH AUTO DIFF [HEME] AM MAGNESIUM [CHEM] AM 07/14/21 05:11 BASIC METABOLIC PANEL,BMP [CHEM] AM CBC WITH AUTO DIFF [HEME] AM MAGNESIUM [CHEM] AM - Assessment Assessment:: 07/11/2021 This is a 71-year-old male well-known to this floor due to prior hospitalization for COVID-19 pneumonia who was admitted due to pulmonary emboli. He was given Lovenox in the ED and was transitioned to a heparin drip of late last night due to concerns over prior GI bleeding. Patient has been doing overall quite well. He remains on his baseline 2 L of oxygen with saturations in the low 90s. He does desaturate somewhat with movement but this has been his baseline due to his Covid infection. Overall he has no real complaints and states he feels pretty good. He denies any current pain. Echocardiogram was obtained and is still pending. Labs today show WBC of 6.00. Hemoglobin is 11.2. Platelets 195,000. Neutrophils are normal at 66.0. aPTT was 45.6. Sodium was 142. Potassium 3.9. Chloride 105. Carbon dioxide 30. Anion gap 10.9. BUN is 14. Creatinine 0.9. GFR greater than 60. Glucose has been between 97 and 252. Calcium is 8.5. Magnesium was 1.7 and was supplemented with 2 g. Patient will remain on heparin drip for approximately 48 hours and then we will likely transition to Eliquis. Length of stay likely 2-3 more days pending continued stability and improvement. - Plan Plan:: Pulmonary emboli Elevated d-dimer History of GI bleed * Heparin drip VTE protocol * 5000 unit IV push bolus given * Monitor APTT as per VTE protocol * Daily labs * Echocardiogram obtained and pending * Discontinue home aspirin * Twice daily Protonix PO * Monitor for signs of GI bleeding Chronic respiratory failure with hypoxia, on home oxygen therapy Obstructive sleep apnea on CPAP History of COVID-19 * O2 as needed to keep saturations above 90% chronically on 2 L at home * CPAP at night * As needed DuoNebs * As needed albuterol MDI Parkinsons disease Parkinson's disease dementia * No acute concerns * PT/OT * Let me sleep protocol * Continue home medications * High fall risk Diabetes mellitus type 2 in nonobese * Long-acting insulin as ordered * Hold home p.o. diabetic meds * Medium intensity sliding scale insulin as ordered * Consistent carbohydrate diet HLD (hyperlipidemia) * No acute concerns * No home statins HTN (hypertension) * No acute concerns * Home medications as ordered * Monitor vital signs Neurogenic bladder S/P TURP * No acute concerns * Home medications as ordered Hypothyroidism * No acute concerns * Home levothyroxine as ordered Hypomagnesemia * Supplement * Monitor Code status: Full code PCP: Dr. Benitez VTE prophylaxis: Heparin drip as above Social: Patient lives at home with and has family support. Disposition: Patient admitted to ICU as a medicalsurgical overflow for treatment and monitoring of his PEs with relatively high risk of bleeding given prior GI bleed. Likely length of stay 3 to 4 days.
[2021-07-12] MEDS: Finasteride 5 MG Tab PO SCH (08:48)
[2021-07-12] MEDS: Pantoprazole 40 MG Tab.CR PO SCH (08:48)
[2021-07-12] MEDS ORDERED: Apixaban 5 MG Tab PO SCH (09:00)
[2021-07-12 09:26] VITALS: PULSE 75
--- NOTE | 2021-07-12 11:10 | PCM.DCSUM1 ---
Discharge Summary - Hospital Course HPI Initial Comments: his is a 71-year-old male who presents to ED on 07/10/2021 with noted low oxygen saturations and a cough. Patient reports has been more short of breath over the past 1 to 2 days. He is chronically on 2 L of oxygen at home. Family reports patient was noted to be more short of breath this morning and saturations observed on fingertip pulse oximetry were in the 60% range. He had some left- sided chest pain, which has resolved. Denies any recent fever or chills. Of note patient was hospitalized from 06/10/2021 and ~06/26/2021 with COVID-19 pneumonia. During that time patient's D-dimer was noted to increase from 6.74 up to 25.45. Multiple CTA scans were obtained with no findings of pulmonary embolism. Lower extremity ultrasound was also obtained and showed no findings of DVT. Patient was started on 1 mg/kg Lovenox and then had an episode of hem atemesis, which resulted in his Lovenox being stopped. He was started on a heparin drip and restarted on Lovenox 1 mg/kg prior to discharge from the hospital. Per the patient he was compliant with therapy and his primary care provider discontinued his Levaquin approximately 1 week ago and start him on 325 mg daily aspirin. In the ED twelve-lead EKG is obtained showing a sinus rhythm with no ischemic changes or ectopy. Temp is 97.8. Respirations are 18. Blood pressure is 150/72. Pulse ox is 92% on 2L. On triage he is noted to be tachycardic. Labs are obtained showing a WBC of 9.05. Hemoglobin is 12.0. Platelet 211,000. Neutrophils are elevated 80.7. D-dimer is high at 5.52. Sodium is 140. Potassium 4.3. Chloride 100. Carbon dioxide 31. Anion gap 13.3. BUN is 16. Creatinine 0.8. GFR greater than 60. Glucose is 192. Calcium 8.8. Troponin less than 0.017. CTA is obtained showing "1. Pulmonary embolism are present within both pulmonary arteries and extending into the segmental and subsegmental branches of the left lower pulmonary artery. 2. Increased density within both lung bases presumably due to persisting COVID-19 pneumonia. 3. Small right- sided pleural effusion is seen." Given his fairly recent history of GI bleed is felt patient is high risk for repeat complications from PE treatment. Decision was made to admit the patient to the medical floor with telemetry for further treatment and close monitoring. There are currently no beds available on the medical surgical floor so the patient will go to ICU as an M/S/P overflow. He carries a history of HLD, HTN, sleep apnea utilizing CPAP, neurogenic bladder, status post TURP, Parkinson's disease, type II DM, hypothyroidism, COVID-19 pneumonia. He is a full code. His PCP is Dr. Carol Benitez. Diagnosis: Stroke: No - Discharge Data Discharge Date: 07/12/21 (Admit date: 07/10/2021) Discharge Disposition: Home, Self-Care 01 Condition: Good - Referral to Home Health Primary Care Physician: Carol Benitez MD - Discharge Diagnosis/Problem(s) (1) Chronic respiratory failure with hypoxia, on home oxygen therapy SNOMED Code(s): 234387380 ICD Code: J96.11 - CHRONIC RESPIRATORY FAILURE WITH HYPOXIA; Z99.81 - DEPENDENCE ON SUPPLEMENTAL OXYGEN Status: Chronic Priority: High Current Visit: Yes (2) History of GI bleed SNOMED Code(s): 288589306 ICD Code: Z87.19 - PERSONAL HISTORY OF OTHER DISEASES OF THE DIGESTIVE SYSTEM Status: Chronic Priority: Medium Current Visit: No (3) Pulmonary emboli SNOMED Code(s): 78669359 ICD Code: I26.99 - OTHER PULMONARY EMBOLISM WITHOUT ACUTE COR PULMONALE Status: Acute Priority: High Current Visit: Yes Qualifiers: Pulmonary embolism type: multiple subsegmental (without acute cor pulmonale) Qualified Code(s): I26.94 - Multiple subsegmental pulmonary emboli without acute cor pulmonale (4) Parkinson's disease dementia SNOMED Code(s): 511667678749309 ICD Code: G20 - PARKINSON'S DISEASE; F02.80 - DEMENTIA IN OTH DISEASES CLASSD ELSWHR W/O BEHAVRL DISTURB Status: Chronic Priority: Medium Current Visit: No Qualifiers: Dementia behavioral disturbance: without behavioral disturbance Qualified Code(s): G20 - Parkinson's disease; F02.80 - Dementia in other diseases classified elsewhere without behavioral disturbance (5) Elevated d-dimer SNOMED Code(s): 221790654 ICD Code: R79.89 - OTHER SPECIFIED ABNORMAL FINDINGS OF BLOOD CHEMISTRY Status: Acute Priority: High Current Visit: Yes (6) Diabetes mellitus type 2 in nonobese SNOMED Code(s): 821320890 ICD Code: E11.9 - TYPE 2 DIABETES MELLITUS WITHOUT COMPLICATIONS Status: Chronic Priority: Medium Current Visit: No (7) HLD (hyperlipidemia) SNOMED Code(s): 66491384 ICD Code: E78.5 - HYPERLIPIDEMIA, UNSPECIFIED Status: Chronic Priority: Low Current Visit: No Qualifiers: Hyperlipidemia type: unspecified Qualified Code(s): E78.5 - Hyperlipidemia, unspecified (8) HTN (hypertension) SNOMED Code(s): 87674949 ICD Code: I10 - ESSENTIAL (PRIMARY) HYPERTENSION Status: Chronic Priority: Medium Current Visit: No Qualifiers: Hypertension type: unspecified Qualified Code(s): I10 - Essential (primary) hypertension (9) Obstructive sleep apnea on CPAP SNOMED Code(s): 13598763 ICD Code: G47.33 - OBSTRUCTIVE SLEEP APNEA (ADULT) (PEDIATRIC); Z99.89 - DEPENDENCE ON OTHER ENABLING MACHINES AND DEVICES Status: Chronic Priority: Medium Current Visit: No (10) Neurogenic bladder SNOMED Code(s): 369558303 ICD Code: N31.9 - NEUROMUSCULAR DYSFUNCTION OF BLADDER, UNSPECIFIED Status: Chronic Priority: Low Current Visit: No (11) S/P TURP SNOMED Code(s): 328811925, 99286219, 263905390 ICD Code: Z90.79 - ACQUIRED ABSENCE OF OTHER GENITAL ORGAN(S) Status: Chronic Priority: Low Current Visit: No (12) Parkinsons disease SNOMED Code(s): 57055653 ICD Code: G20 - PARKINSON'S DISEASE Status: Chronic Priority: Medium C urrent Visit: No (13) Hypothyroidism SNOMED Code(s): 34692482 ICD Code: E03.9 - HYPOTHYROIDISM, UNSPECIFIED Status: Chronic Priority: Low Current Visit: No Qualifiers: Hypothyroidism type: unspecified Qualified Code(s): E03.9 - Hypothyroidism, unspecified (14) History of COVID-19 SNOMED Code(s): 441192055381196415, 544844815459805878 ICD Code: Z86.16 - PERSONAL HISTORY OF COVID-19 Status: Chronic Priority: Medium Current Visit: Yes (15) Hypomagnesemia SNOMED Code(s): 874758400 ICD Code: E83.42 - HYPOMAGNESEMIA Status: Resolved Priority: Medium Current Visit: Yes - Patient Summary/Data Consults: Consultations 07/10/21 14:09 Consult to Case Management/[employer] [CONS] Routine Consult to Spiritual Care [CONS] Routine 07/10/21 14:12 OT Evaluation and Treatment [CONS] Routine PT Evaluation and Treatment [CONS] Routine Labs Pending at D/C: None Recommended Follow-up Testing/Procedures: Recommend follow-up with primary care provider within 5 to 7 days of discharge, sooner if needed. * Patient started on Eliquis 10 mg twice daily for 10 days. Patient will then transition to 5 mg twice daily starting on 07/19/2021. Prescription sent for both. * Given history of GI bleed patient given 40 mg twice daily Protonix p.o. * No bleeding concerns and labs stable throughout hospitalization. * Instructed to continue outpatient physical therapy as prior. * All home medications continued with the exception of aspirin Hospital Course: This is a 71-year-old male who presented to our ED on 07/10/2021 with shortness of breath and was subsequently found to have pulmonary emboli. As noted in the admission HPI patient does have a history of elevated D-dimer but no definitive PE or DVT. He was discharged from the hospital secondary to a Covid infection on 1 mg/kg twice daily Lovenox and was transitioned by his primary care provider to high dose aspirin. Unfortunately patient failed this outpatient plan. He was given 1 mg/kg of Lovenox in the ED and was transitioned to a heparin drip on the floor due to his history of GI bleed and better ability to control heparin should bleeding recur. Labs have remained stable and he has done very well. No signs of any bleeding. He is chronically on 2 L of oxygen secondary to his Covid infection and he has been doing well with this with saturations in the mid 90s for the most part. He does have a baseline of Parkinson's disease and was working with physical therapy and Occupational Therapy who are recommending outpatient services continue. Family was heavily involved in his care. Echocardiogram was obtained to rule out right heart strain and interpreted as "1. Left ventricular ejection fraction, by visual estimation, is 60 to 65%. 2. Normal left ventricular systolic function. 3. Impaired relaxation (grade 1) pattern of LV diastolic filling. 4. Low normal right ventricular systolic function. 5. There is mild aortic valve sclerosis without stenosis. 6. Mild mitral valve regurgitation. 7. Mild tricuspid valve regurgitation. 8. The right ventricular systolic pressure is moderately elevated at 48.4 mmHg. 9. No regional wall motion abnormalities." Prescription was sent for 7 days of 10 mg twice daily Eliquis, although patient did receive his first dose here prior to discharge. On the morning of 07/19/2021 he should transition to 5 mg twice daily Eliquis and a prescription for this was sent as well. Prescription was sent for 40 mg twice daily Protonix given his history of GI bleeds. Home aspirin was discontinued however all other home medications were continued. He was instructed to contact his primary care provider or return the emergency room should he notice any concerning symptoms such as bloody stools, black tarry stools, or bloody vomiting. Recommend follow-up with primary care provider within 5 to 7 days of discharge, sooner if needed. Recommend recheck CBC, CMP, and magnesium in follow-up. Please pay special attention to hemoglobin to ensure stability. Discharged home today. - Patient Instructions Diet: Usual Diet as Tolerated, Diabetic Diet Activity: As Tolerated Driving: Do Not Drive Showering/Bathing: May Shower Notify Provider of: Fever, Increased Pain, Swelling and Redness Other/Special Instructions: Follow-up with primary care provider within 5 to 7 days of discharge, sooner if needed. Stop taking your aspirin. You were prescribed an oral blood thinner called Eliquis. You should take 10 mg dosing twice a day for a total of 7 days. You received your first dose while here. Starting 07/19/2021 you should decrease your dosing to 5 mg twice a day. Because of your prior GI bleed you should take Protonix 40 mg twice a day. Your primary care provider may adjust this in the future. Resume your other home medications. Continue to check your blood sugars per your prior routine. Be cautious as Eliquis can increase your risk of bleeding. Contact your primary care provider return the emergency room should you notice any blood in your stool or dark tarry stools. Continue to wear your oxygen at 2 L as before. Should symptoms return or worsen contact your primary care provider or return the emergency room. - Discharge Plan *PRESCRIPTION DRUG MONITORING PROGRAM REVIEWED*: No *COPY OF PRESCRIPTION DRUG MONITORING REPORT IN PATIENT DUYEN: No Prescriptions/Med Rec: Apixaban [Eliquis] 5 mg PO BID #30 tablet Apixaban [Eliquis] 10 mg PO BID #26 tablet Pantoprazole [ProTONIX] 40 mg PO BID #40 tab.cr Home Medications: Home Meds Glimepiride 2 mg PO DAILY 03/08/15 [History] Finasteride [Proscar] 5 mg PO DAILY 05/14/18 [History] Insulin Degludec [Tresiba] 20 unit SQ BEDTIME 06/09/21 [History] Carbidopa/Levodopa [Carbidopa-Levodopa 25-250] 1 tab PO 5XDAY 06/10/21 [History] Levothyroxine [Synthroid] 50 mcg PO DAILY 06/10/21 [History] Solifenacin Succinate 10 mg PO DAILY 06/10/21 [History] Tamsulosin [Flomax] 0.4 mg PO BEDTIME 06/10/21 [History] sitaGLIPtin Phos/Metformin HCl [Janumet 50-1,000 MG] 1 each PO BID 06/10/21 [History] Apixaban [Eliquis] 5 mg PO BID #30 tablet 07/12/21 [Rx] Apixaban [Eliquis] 10 mg PO BID #26 tablet 07/12/21 [Rx] Pantoprazole [ProTONIX] 40 mg PO BID #40 tab.cr 07/12/21 [Rx] Oxygen Therapy Mode: Nasal Cannula Oxygen Flow Rate (L/min): 2 Maintain SpO2% greater than: 90 Patient Handouts: Home Oxygen Use, Adult, CPAP and BPAP Information, Apixaban oral tablets Forms: ED Department Discharge Referrals: Carol Benitez MD [Primary Care Provider] - 07/20/21 8:50 am (Please arrive at 8:50 to check in) - Discharge Summary/Plan Comment DC Time >30 min.: Yes Total # of Minutes for Discharge Time: 45 - General Info Date of Service: 07/12/21 Functional Status: Reports: Pain Controlled, Tolerating Diet, Ambulating, Urinating. Denies: New Symptoms - Review of Systems General: Reports: Weakness (Chronic ). Denies: Fever, Fatigue, Malaise, Chills HEENT: Reports: No Symptoms. Denies: Headaches, Sore Throat Pulmonary: Reports: Shortness of Breath (chronic but improved ), Cough. Denies: Sputum, Wheezing Cardiovascular: Reports: Dyspnea on Exertion (chronic ). Denies: Chest Pain, Pa lpitations, Edema, Lightheadedness Gastrointestinal: Reports: No Symptoms. Denies: Abdominal Pain, Constipation, Diarrhea, Nausea, Vomiting Genitourinary: Reports: No Symptoms. Denies: Pain Musculoskeletal: Reports: No Symptoms Skin: Reports: No Symptoms. Denies: Cyanosis Neurological: Reports: Pre-Existing Deficit (Parkinson's), Tremors, Difficulty Walking (Chronic), Weakness, Gait Disturbance (Chronic). Denies: Confusion, Dizziness, Headache, Numbness, Seizure, Syncope, Tingling, Trouble Speaking Psychiatric: Reports: No Symptoms - Patient Data Vitals - Most Recent: Last Vital Signs Temp 97.1 F 07/12/21 08:00 Pulse 75 07/12/21 08:00 Resp 18 07/12/21 08:00 BP 123/70 07/12/21 08:00 Pulse Ox 97 07/12/21 08:00 Weight - Most Recent: 223 lb 14.4 oz I&O - Last 24 hours: Intake & Output 07/11/21 07/12/21 07/12/21 22:59 06:59 14:59 Intake Total 1450 800 Output Total 1225 850 Balance 225 -50 Lab Results - Last 24 hrs: Laboratory Results - last 24 hr 07/11/21 07/11/21 07/11/21 Range/Units 12:48 16:23 19:23 WBC (4.23-9.07) K/mm3 RBC (4.63-6.08) M/mm3 Hgb (13.7-17.5) gm/dl Hct (40.1-51.0) % MCV (79.0-92.2) fl MCH (25.7-32.2) pg MCHC (32.2-35.5) g/dl RDW Std Deviation (35.1-43.9) fL Plt Count (163-337) K/mm3 MPV (9.4-12.3) fl Neut % (Auto) (34.0-67.9) % Lymph % (Auto) (21.8-53.1) % Rogers % (Auto) (5.3-12.2) % Eos % (Auto) (0.8-7.0) Baso % (Auto) (0.1-1.2) % Neut # (Auto) (1.78-5.38) K/mm3 Lymph # (Auto) (1.32-3.57) K/mm3 Rogers # (Auto) (0.30-0.82) K/mm3 Eos # (Auto) (0.04-0.54) K/mm3 Baso # (Auto) (0.01-0.08) K/mm3 APTT 42.7 H 49.7 H (21.7-31.4) SECONDS Sodium (136-145) mEq/L Potassium (3.5-5.1) mEq/L Chloride (98-107) mEq/L Carbon Dioxide (21-32) mEq/L Anion Gap (5-15) BUN (7-18) mg/dL Creatinine (0.7-1.3) mg/dL Est Cr Clr Drug Dosing mL/min Estimated GFR (MDRD) (>60) mL/min BUN/Creatinine Ratio (14-18) Glucose (70-99) mg/dL POC Glucose 198 H (70-99) mg/dL Calcium (8.5-10.1) mg/dL Magnesium (1.8-2.4) mg/dL 07/11/21 07/12/21 07/12/21 Range/Units 21:18 02:00 06:07 WBC (4.23-9.07) K/mm3 RBC (4.63-6.08) M/mm3 Hgb (13.7-17.5) gm/dl Hct (40.1-51.0) % MCV (79.0-92.2) fl MCH (25.7-32.2) pg MCHC (32.2-35.5) g/dl RDW Std Deviation (35.1-43.9) fL Plt Count (163-337) K/mm3 MPV (9.4-12.3) fl Neut % (Auto) (34.0-67.9) % Lymph % (Auto) (21.8-53.1) % Rogers % (Auto) (5.3-12.2) % Eos % (Auto) (0.8-7.0) Baso % (Auto) (0.1-1.2) % Neut # (Auto) (1.78-5.38) K/mm3 Lymph # (Auto) (1.32-3.57) K/mm3 Rogers # (Auto) (0.30-0.82) K/mm3 Eos # (Auto) (0.04-0.54) K/mm3 Baso # (Auto) (0.01-0.08) K/mm3 APTT 76.4 H D (21.7-31.4) SECONDS Sodium (136-145) mEq/L Potassium (3.5-5.1) mEq/L Chloride (98-107) mEq/L Carbon Dioxide (21-32) mEq/L Anion Gap (5-15) BUN (7-18) mg/dL Creatinine (0.7-1.3) mg/dL Est Cr Clr Drug Dosing mL/min Estimated GFR (MDRD) (>60) mL/min BUN/Creatinine Ratio (14-18) Glucose (70-99) mg/dL POC Glucose 292 H 101 H (70-99) mg/dL Calcium (8.5-10.1) mg/dL Magnesium (1.8-2.4) mg/dL 07/12/21 07/12/21 07/12/21 Range/Units 07:45 07:45 07:45 WBC 6.66 (4.23-9.07) K/mm3 RBC 3.66 L (4.63-6.08) M/mm3 Hgb 11.2 L (13.7-17.5) gm/dl Hct 36.0 L (40.1-51.0) % MCV 98.4 H (79.0-92.2) fl MCH 30.6 (25.7-32.2) pg MCHC 31.1 L (32.2-35.5) g/dl RDW Std Deviation 51.3 H (35.1-43.9) fL Plt Count 231 (163-337) K/mm3 MPV 9.5 (9.4-12.3) fl Neut % (Auto) 73.0 H (34.0-67.9) % Lymph % (Auto) 14.7 L (21.8-53.1) % Rogers % (Auto) 8.6 (5.3-12.2) % Eos % (Auto) 2.0 (0.8-7.0) Baso % (Auto) 0.3 (0.1-1.2) % Neut # (Auto) 4.87 (1.78-5.38) K/mm3 Lymph # (Auto) 0.98 L (1.32-3.57) K/mm3 Rogers # (Auto) 0.57 (0.30-0.82) K/mm3 Eos # (Auto) 0.13 (0.04-0.54) K/mm3 Baso # (Auto) 0.02 (0.01-0.08) K/mm3 APTT 54.2 H D (21.7-31.4) SECONDS Sodium 140 (136-145) mEq/L Potassium 4.1 (3.5-5.1) mEq/L Chloride 101 (98-107) mEq/L Carbon Dioxide 29 (21-32) mEq/L Anion Gap 14.1 (5-15) BUN 11 (7-18) mg/dL Creatinine 0.7 (0.7-1.3) mg/dL Est Cr Clr Drug Dosing 110.90 mL/min Estimated GFR (MDRD) > 60 (>60) mL/min BUN/Creatinine Ratio 15.7 (14-18) Glucose 190 H (70-99) mg/dL POC Glucose (70-99) mg/dL Calcium 8.0 L (8.5-10.1) mg/dL Magnesium 1.8 (1.8-2.4) mg/dL Med Orders - Current: Current Medications Acetaminophen (Acetaminophen 325 Mg Tab) 650 mg PO Q4H PRN PRN Reason: Pain (Mild 1-3)/fever Last Admin: 07/12/21 04:30 Dose: 650 mg Documented by: Albuterol (Albuterol 6.7 Gm Inhaler) 0 gm INH Q2H PRN PRN Reason: SOB/Wheezing Albuterol/Ipratropium (Albuterol/Ipratropium 3.0-0.5 Mg/3 Ml Neb Soln) 3 ml NEB QIDRT PRN PRN Reason: Shortness Of Breath/wheezing Apixaban (Apixaban 5 Mg Tab) 10 mg PO BID NALDO Stop: 07/18/21 21:01 Last Admin: 07/12/21 08:48 Dose: 10 mg Documented by: Finasteride (Finasteride 5 Mg Tab) 5 mg PO DAILY [facility] Last Admin: 07/12/21 08:48 Dose: 5 mg Documented by: Insulin Glargine (Insulin Glargine,Hum.Rec.Anlog 100 Unit/Ml 3 Ml Pen) 20 unit SUBCUT BEDTIME [facility] Last Admin: 07/11/21 21:19 Dose: 20 units Documented by: Insulin Human Lispro (Insulin Lispro 100 Unit/Ml 3 Ml Kwikpen) 0 unit SUBCUT QIDACANDBED [facility]; Protocol Last Admin: 07/12/21 06:07 Dose: Not Given Documented by: Levothyroxine Sodium (Levothyroxine 50 Mcg Tab) 50 mcg PO ACBREAKFAST [facility] Last Admin: 07/12/21 06:04 Dose: 50 mcg Documented by: Carbidopa/Levodopa 25-250mg Tablet Ptom 1 tab PO 5XDAY [facility] Last Admin: 07/12/21 06:04 Dose: 1 tab Documented by: Ondansetron HCl (Ondansetron 4 Mg/2 Ml Sdv) 4 mg IV Q6H PRN PRN Reason: Nausea/Vomiting Pantoprazole Sodium (Pantoprazole 40 Mg Tab.Cr) 40 mg PO BID [facility] Last Admin: 07/12/21 08:48 Dose: 40 mg Documented by: Senna/Docusate Sodium (Docusate Sodium/Sennosides 50-8.6 Mg Tab) 2 tab PO BID PRN PRN Reason: Constipation Tamsulosin HCl (Tamsulosin 0.4 Mg Cap.Er) 0.4 mg PO BEDTIME [facility] Last Admin: 07/11/21 20:34 Dose: 0.4 mg Documented by: Trospium (Trospium 20 Mg Tab) 20 mg PO BIDAC [facility] Last Admin: 07/12/21 06:04 Dose: 20 mg Documented by: Discontinued Medications Enoxaparin Sodium (Enoxaparin 100 Mg/1 Ml Syringe) 100 mg SUBCUT ONETIME ONE Stop: 07/10/21 10:46 Last Admin: 07/10/21 10:59 Dose: 100 mg Documented by: Heparin Sodium (Porcine) (Heparin Sodium 5,000 Units/Ml Vial) 5,000 units IVPUSH ONETIME ONE Stop: 07/10/21 22:46 Last Admin: 07/10/21 22:47 Dose: 5,000 units Documented by: Sodium Chloride (Normal Saline) 100 mls @ 60 mls/hr IV ASDIRECTED NALDO Last Admin: 07/10/21 10:23 Dose: 60 mls/hr Documented by: Heparin Sodium/Dextrose (Heparin 25,000 Units In D5w 500 Ml) 25,000 units in 500 mls @ 26 mls/hr IV TITRATE NALDO; Protocol Last Admin: 07/12/21 04:00 Dose: 34 mls/hr Documented by: Magnesium Sulfate 2 gm/ Premix 50 mls @ 25 mls/hr IV ONETIME ONE Stop: 07/11/21 09:03 Last Admin: 07/11/21 07:58 Dose: 25 mls/hr Documented by: Iopamidol (Iopamidol 755 Mg/Ml 100 Ml Bottle) 100 ml IVPUSH ONETIME ONE Stop: 07/10/21 09:03 Last Admin: 07/10/21 10:23 Dose: 100 ml Documented by: Pantoprazole Sodium (Pantoprazole 40 Mg Tab.Cr) 40 mg PO ONETIME ONE Stop: 07/10/21 13:54 Last Admin: 07/10/21 15:53 Dose: 40 mg Documented by: Sodium Chloride (Sodium Chloride 0.9% 10 Ml Syringe) 10 ml FLUSH ONETIME ONE Stop: 07/10/21 09:03 Last Admin: 07/10/21 10:15 Dose: 10 ml Documented by: - Exam Quality Assessment: Reports: Supplemental Oxygen (2L -baseline), DVT Prophylaxis. Denies: Urine Catheter General: Reports: Alert, Oriented, Cooperative, No Acute Distress HEENT: Reports: Pupils Equal, Pupils Reactive, Mucous Membr. Moist/[place] Neck: Reports: Supple, Trachea Midline Lungs: Reports: Clear to Auscultation, Normal Respiratory Effort, Decreased Breath Sounds Cardiovascular: Reports: Regular Rate, Regular Rhythm GI/Abdominal Exam: Normal Bowel Sounds, Soft, Non-Tender, No Distention (Male) Exam: Deferred Rectal (Males) Exam: Deferred Back Exam: Reports: Normal Inspection, Decreased Range of Motion Extremities: Normal Inspection, Non-Tender, No Pedal Edema, Normal Capillary Refill, Limited Range of Motion Skin: Reports: Warm, Dry, Intact Neurological: Reports: No New Focal Deficit Psy/Mental Status: Reports: Alert, Normal Affect, Normal Mood
== END 2021-07-12 11:30 | disposition home or self-care (01) | DRG 176 ==
LOC: JD.ED 07:59 → JD.ICU 13:51
PROVIDERS: ADMIT Internal Medicine; ATTEND Internal Medicine
DX: I26.94 Multiple subsegmental thrombotic pulmonary emboli without acute cor pulmonale (principal); R09.02 Hypoxemia; J96.11 Chronic respiratory failure with hypoxia; H91.90 Unspecified hearing loss, unspecified ear; G20 Parkinson's disease; I10 Essential (primary) hypertension; G47.30 Sleep apnea, unspecified; F02.80 Dementia in other diseases classified elsewhere, unspecified severity, without behavioral disturbance, psychotic disturbance, mood disturbance, and anxiety; E78.5 Hyperlipidemia, unspecified; G47.33 Obstructive sleep apnea (adult) (pediatric); N31.9 Neuromuscular dysfunction of bladder, unspecified; E11.9 Type 2 diabetes mellitus without complications; E03.9 Hypothyroidism, unspecified; Z79.01 Long term (current) use of anticoagulants; E83.42 Hypomagnesemia; I08.3 Combined rheumatic disorders of mitral, aortic and tricuspid valves; H54.7 Unspecified visual loss; E78.00 Pure hypercholesterolemia, unspecified; M19.90 Unspecified osteoarthritis, unspecified site; Z96.653 Presence of artificial knee joint, bilateral; Z99.81 Dependence on supplemental oxygen; Z99.89 Dependence on other enabling machines and devices; Z79.4 Long term (current) use of insulin; Z79.890 Hormone replacement therapy; Z79.82 Long term (current) use of aspirin; Z87.19 Personal history of other diseases of the digestive system; Z86.16 Personal history of COVID-19; Z87.01 Personal history of pneumonia (recurrent); Z79.899 Other long term (current) drug therapy
CPT/HCPCS: 36415; 71275; 80048; 84484; 85025; 85379; 93005; J1650; Q9967; 82947; 83735; 85610; 85730; 93010; 93306; 94762; 96372; 97110-GP; 97116-GP; 97162-GP; 97530-GP; 99223; 99232; 99239; 99285; 99285-25; A9270-GY; J1644; J1815; J3475

== ENCOUNTER 2024-05-29 09:42 | Emergency (ER) | payer MEDICARE, BC ==
[2024-05-29 09:52] VITALS: BP 158/79
[2024-05-29] MEDS ORDERED: Sodium Chloride 0.9% 10 ML Syringe FLUSH PRN (10:03)
[2024-05-29] MEDS: Ondansetron 4 MG/2 ML SDV IVPUSH ONE (10:10)
[2024-05-29] MEDS: Ketorolac 15 MG/ML SDV IVPUSH ONE (10:10)
[2024-05-29 10:14] LABS: BASOPHILS ABSOLUTE AUTO 0.1 K/mm3 (0.0-0.2); BASOPHILS PERCENT AUTO 0.5 % (0.0-1.0); EOSINOPHILS ABSOLUTE AUTO 0.3 K/mm3 (0.0-0.4); EOSINOPHILS PERCENT AUTO 2.8 % (0.0-6.0); HEMATOCRIT 45.5 % (42.0-52.0); HEMOGLOBIN 15.3 gm/dl (14.0-18.0); IMMATURE GRAN ABSOLUTE AUTO 0.04 K/mm3 (0.00-0.05); IMMATURE GRAN PERCENT AUTO 0.4 % (0.0-0.4); LYMPHOCYTES ABSOLUTE AUTO 1.6 K/mm3 (1.0-4.8); LYMPHOCYTES PERCENT AUTO 14.6 % (24.0-44.0); MEAN CORPUSCULAR HEMOGLOBIN 32.2 pg (28.0-32.0); MEAN CORPUSCULAR HGB CONC 33.6 g/dl (32.0-36.0); MEAN CORPUSCULAR VOLUME 95.8 fl (83.0-99.0); MEAN PLATELET VOLUME 9.6 fl (9.4-12.4); MONOCYTES ABSOLUTE AUTO 0.8 K/mm3 (0.0-0.8); MONOCYTES PERCENT AUTO 7.6 % (0.0-8.0); NEUTROPHILS ABSOLUTE AUTO 8.2 K/mm3 (1.8-7.7); NEUTROPHILS PERCENT AUTO 74.1 % (41.0-71.0); PLATELET COUNT,PLT 216 K/mm3 (150-400); RED BLOOD CELL COUNT 4.75 M/mm3 (4.52-5.90); WHITE BLOOD CELL COUNT,WBC 11.01 K/mm3 (3.9-11.3)
[2024-05-29 10:42] LABS: ALBUMIN 3.5 g/dl (3.4-5.0); ANION GAP 14.3 (5-15); BILIRUBIN TOTAL 0.6 mg/dL (0.2-1.0); BUN/CREATININE RATIO 13.6 (14-18); CALCIUM 8.8 mg/dL (8.5-10.1); CREATININE 1.1 mg/dL (0.7-1.3); EST CRCL DRUG DOSING (CG) 67.46 mL/min; POTASSIUM,K 4.3 mEq/L (3.5-5.1); PROTEIN TOTAL,TP 7.1 g/dl (6.4-8.2)
[2024-05-29 11:17] LABS: APPEARANCE,URINE CLEAR (Clear); BILIRUBIN,URINE NEGATIVE (Negative); COLOR,URINE YELLOW (Yellow); GLUCOSE,URINE 2+ (Negative); KETONES,URINE NEGATIVE (Negative); LEUKOCYTE ESTERASE,URINE NEGATIVE (Negative); NITRITE,URINE NEGATIVE (Negative); OCCULT BLOOD,URINE 1+ (Negative); PROTEIN,URINE NEGATIVE (Negative); UROBILINOGEN,URINE 0.2 (0.2-1.0)
[2024-05-29 11:56] LABS: BACTERIA,URINE RARE /hpf (FEW); EPITHELIAL CELLS,URINE 0-5 /hpf (0-5); MUCUS,URINE RARE /hpf (FEW); WBC,URINE 0-5 /hpf (0-5)
[2024-05-29 12:17] VITALS: PULSE 78
== END 2024-05-29 12:17 | disposition home or self-care (01) ==
LOC: JD.ED 09:42
DX: N13.2 Hydronephrosis with renal and ureteral calculous obstruction (principal); I10 Essential (primary) hypertension; E11.9 Type 2 diabetes mellitus without complications; E03.9 Hypothyroidism, unspecified; Z86.16 Personal history of COVID-19; Z79.891 Long term (current) use of opiate analgesic; Z79.01 Long term (current) use of anticoagulants; Z79.4 Long term (current) use of insulin; Z79.899 Other long term (current) drug therapy; Z79.84 Long term (current) use of oral hypoglycemic drugs
CPT/HCPCS: 36415; 74176; 80053; 81001; 83690; 85025; 96374; 96375; 99284; J1885; J2405

== ENCOUNTER 2025-02-09 17:14 | Emergency (ER) | payer MEDICARE, BC ==
[2025-02-09] MEDS ORDERED: Sodium Chloride 0.9% 10 ML Syringe FLUSH PRN (17:31)
[2025-02-09 17:39] LABS: BASOPHILS ABSOLUTE AUTO 0.0 K/mm3 (0.0-0.2); BASOPHILS PERCENT AUTO 0.3 % (0.0-1.0); EOSINOPHILS ABSOLUTE AUTO 0.0 K/mm3 (0.0-0.4); EOSINOPHILS PERCENT AUTO 0.5 % (0.0-6.0); IMMATURE GRAN ABSOLUTE AUTO 0.02 K/mm3 (0.00-0.05); IMMATURE GRAN PERCENT AUTO 0.3 % (0.0-0.4); LYMPHOCYTES ABSOLUTE AUTO 0.7 K/mm3 (1.0-4.8); LYMPHOCYTES PERCENT AUTO 10.8 % (24.0-44.0); MEAN PLATELET VOLUME 9.7 fl (9.4-12.4); MONOCYTES ABSOLUTE AUTO 0.6 K/mm3 (0.0-0.8); MONOCYTES PERCENT AUTO 9.3 % (0.0-8.0); NEUTROPHILS ABSOLUTE AUTO 5.1 K/mm3 (1.8-7.7); NEUTROPHILS PERCENT AUTO 78.8 % (41.0-71.0); NRBC ABSOLUTE 0.00 (0.00-0.02); NRBC PERCENT 0.0 % (0.0-0.2); PLATELET COUNT,PLT 172 K/mm3 (150-400); RED BLOOD CELL COUNT 4.60 M/mm3 (4.52-5.90); WHITE BLOOD CELL COUNT,WBC 6.47 K/mm3 (3.9-11.3)
[2025-02-09 18:07] LABS: A/G RATIO 0.9 (1-2); ALANINE AMINOTRANSFERASE,ALT 9.0 U/L (16-63); ASPARTATE AMNIOTRANSFERASE,AST 11.0 U/L (15-37); BILIRUBIN TOTAL 0.7 mg/dL (0.2-1.0); BLOOD UREA NITROGEN,BUN 21.0 mg/dL (7-18); CARBON DIOXIDE,CO2 30.0 mEq/L (21-32); CHLORIDE,CL 100.0 mEq/L (98-107); CREATINE KINASE,CK 52.0 U/L (39-308); CREATININE 1.3 mg/dL (0.7-1.3); EST CRCL DRUG DOSING (CG) 57.08 mL/min; ESTIMATED GFR 57.0 mL/min (>60); GLUCOSE RANDOM 286.0 mg/dL (70-99); POTASSIUM,K 4.5 mEq/L (3.5-5.1); PROTEIN TOTAL,TP 6.8 g/dl (6.4-8.2); SODIUM,NA 135.0 mEq/L (136-145); TROPONIN I HIGH SENSITIVITY 9.0 pg/mL (<=76); TSH 1.963 uIU/mL (0.358-3.74)
[2025-02-09 18:33] LABS: LACTIC ACID 1.5 mmol/L (0.4-2.0)
[2025-02-09 19:43] LABS: APPEARANCE,URINE CLEAR (Clear); GLUCOSE,URINE 2+ (Negative); OCCULT BLOOD,URINE NEGATIVE (Negative)
[2025-02-09 20:03] LABS: SQUAMOUS EPITHELIAL CELLS,UR 0-5 /hpf (0-5)
[2025-02-09 20:41] VITALS: BP 128/59; PULSE 93
== END 2025-02-09 20:35 | disposition home or self-care (01) ==
LOC: JD.ED 17:14
DX: M25.572 Pain in left ankle and joints of left foot (principal); G20.A1 Parkinson's disease without dyskinesia, without mention of fluctuations; G89.29 Other chronic pain; I10 Essential (primary) hypertension; E78.00 Pure hypercholesterolemia, unspecified; E11.9 Type 2 diabetes mellitus without complications; E03.9 Hypothyroidism, unspecified; Z86.16 Personal history of COVID-19; Z79.84 Long term (current) use of oral hypoglycemic drugs; Z79.899 Other long term (current) drug therapy; Z79.01 Long term (current) use of anticoagulants; X50.1XXA Overexertion from prolonged static or awkward postures, initial encounter; W19.XXXA Unspecified fall, initial encounter
CPT/HCPCS: 36415; 70450; 72125; 73610; 80053; 81001; 82550; 83605; 84443; 84484; 85025; 93005; 96360; 96361; 99284; J7030; 93010

== ENCOUNTER 2025-07-06 15:10 | Emergency (ER) | payer MEDICARE, BC ==
[2025-07-06] MEDS ORDERED: Sodium Chloride 0.9% 10 ML Syringe FLUSH PRN (15:33)
[2025-07-06] MEDS ORDERED: Naloxone 0.4 MG/ML SDV IVPUSH PRN (15:33)
[2025-07-06] MEDS: Ondansetron 4 MG/2 ML SDV IVPUSH ONE (15:51)
[2025-07-06 16:01] LABS: BASOPHILS ABSOLUTE AUTO 0.0 K/mm3 (0.0-0.2); BASOPHILS PERCENT AUTO 0.3 % (0.0-1.0); EOSINOPHILS ABSOLUTE AUTO 0.2 K/mm3 (0.0-0.4); EOSINOPHILS PERCENT AUTO 1.5 % (0.0-6.0); IMMATURE GRAN ABSOLUTE AUTO 0.05 K/mm3 (0.00-0.05); IMMATURE GRAN PERCENT AUTO 0.4 % (0.0-0.4); LYMPHOCYTES ABSOLUTE AUTO 1.1 K/mm3 (1.0-4.8); LYMPHOCYTES PERCENT AUTO 8.0 % (24.0-44.0); MEAN PLATELET VOLUME 9.4 fl (9.4-12.4); MONOCYTES ABSOLUTE AUTO 1.0 K/mm3 (0.0-0.8); MONOCYTES PERCENT AUTO 7.1 % (0.0-8.0); NEUTROPHILS ABSOLUTE AUTO 11.8 K/mm3 (1.8-7.7); NEUTROPHILS PERCENT AUTO 82.7 % (41.0-71.0); NRBC ABSOLUTE 0.00 (0.00-0.02); NRBC PERCENT 0.0 % (0.0-0.2); PLATELET COUNT,PLT 214 K/mm3 (150-400); RED BLOOD CELL COUNT 4.89 M/mm3 (4.52-5.90); WHITE BLOOD CELL COUNT,WBC 14.23 K/mm3 (3.9-11.3)
[2025-07-06 16:17] LABS: A/G RATIO 0.9 (1-2); ALANINE AMINOTRANSFERASE,ALT 7.0 U/L (16-63); ASPARTATE AMNIOTRANSFERASE,AST 12.0 U/L (15-37); BILIRUBIN TOTAL 0.5 mg/dL (0.2-1.0); BLOOD UREA NITROGEN,BUN 27.0 mg/dL (7-18); CARBON DIOXIDE,CO2 31.0 mEq/L (21-32); CHLORIDE,CL 103.0 mEq/L (98-107); CREATININE 1.3 mg/dL (0.7-1.3); EST CRCL DRUG DOSING (CG) 56.21 mL/min; ESTIMATED GFR 57.0 mL/min (>60); GLUCOSE RANDOM 241.0 mg/dL (70-99); POTASSIUM,K 4.5 mEq/L (3.5-5.1); PROTEIN TOTAL,TP 7.1 g/dl (6.4-8.2); SODIUM,NA 142.0 mEq/L (136-145)
[2025-07-06 16:23] LABS: LACTIC ACID 1.2 mmol/L (0.4-2.0)
[2025-07-06 17:20] LABS: APPEARANCE,URINE CLEAR (Clear); GLUCOSE,URINE 1+ (Negative); OCCULT BLOOD,URINE 3+ (Negative)
[2025-07-06 17:39] LABS: EPITHELIAL CELLS,URINE 0-5 /hpf (0-5)
[2025-07-06] MEDS: cefTRIAXone 1 GM in Water For Injection, Sterile 10 ML IVPUSH ONE (18:24)
[2025-07-06] MEDS: Ketorolac 30 MG/ML SDV IVPUSH ONE (19:57)
[2025-07-06 20:51] VITALS: BP 166/77; PULSE 98
== END 2025-07-06 20:49 | disposition critical access hospital (66) ==
LOC: JD.ED 15:10
DX: N13.6 Pyonephrosis (principal); I10 Essential (primary) hypertension; E78.00 Pure hypercholesterolemia, unspecified; E11.9 Type 2 diabetes mellitus without complications; E03.9 Hypothyroidism, unspecified; Z79.84 Long term (current) use of oral hypoglycemic drugs; Z79.4 Long term (current) use of insulin; Z79.01 Long term (current) use of anticoagulants; Z79.899 Other long term (current) drug therapy; Z86.16 Personal history of COVID-19
CPT/HCPCS: 36415; 71045; 74176; 80053; 81001; 83605; 83690; 83735; 85025; 87086; 96374; 96375; 99285; A9270; J0696; J2270; J2405; 87088; 87186; J1885

== ENCOUNTER 2025-07-29 04:14 | Inpatient (IN) | payer MEDICARE, BC ==
[2025-07-29] MEDS ORDERED: Sodium Chloride 0.9% 10 ML Syringe FLUSH PRN (05:14)
[2025-07-29 05:35] LABS: BASOPHILS ABSOLUTE AUTO 0.0 K/mm3 (0.0-0.2); BASOPHILS PERCENT AUTO 0.3 % (0.0-1.0); EOSINOPHILS ABSOLUTE AUTO 0.1 K/mm3 (0.0-0.4); EOSINOPHILS PERCENT AUTO 0.9 % (0.0-6.0); IMMATURE GRAN ABSOLUTE AUTO 0.04 K/mm3 (0.00-0.05); IMMATURE GRAN PERCENT AUTO 0.3 % (0.0-0.4); LYMPHOCYTES ABSOLUTE AUTO 0.9 K/mm3 (1.0-4.8); LYMPHOCYTES PERCENT AUTO 7.1 % (24.0-44.0); MEAN PLATELET VOLUME 9.4 fl (9.4-12.4); MONOCYTES ABSOLUTE AUTO 1.2 K/mm3 (0.0-0.8); MONOCYTES PERCENT AUTO 9.7 % (0.0-8.0); NEUTROPHILS ABSOLUTE AUTO 9.8 K/mm3 (1.8-7.7); NEUTROPHILS PERCENT AUTO 81.7 % (41.0-71.0); NRBC ABSOLUTE 0.00 (0.00-0.02); NRBC PERCENT 0.0 % (0.0-0.2); PLATELET COUNT,PLT 156 K/mm3 (150-400); RED BLOOD CELL COUNT 4.04 M/mm3 (4.52-5.90); WHITE BLOOD CELL COUNT,WBC 12.06 K/mm3 (3.9-11.3)
[2025-07-29 05:56] LABS: A/G RATIO 0.6 (1-2); ASPARTATE AMNIOTRANSFERASE,AST 18 U/L (15-37); BILIRUBIN TOTAL 0.6 mg/dL (0.2-1.0); BLOOD UREA NITROGEN,BUN 22 mg/dL (7-18); CARBON DIOXIDE,CO2 29 mEq/L (21-32); CHLORIDE,CL 100 mEq/L (98-107); CREATININE 1.1 mg/dL (0.7-1.3); EST CRCL DRUG DOSING (CG) 70.14 mL/min; ESTIMATED GFR 70 mL/min (>60); GLUCOSE RANDOM 255 mg/dL (70-99); POTASSIUM,K 3.9 mEq/L (3.5-5.1); PROTEIN TOTAL,TP 6.4 g/dl (6.4-8.2); SODIUM,NA 138 mEq/L (136-145)
[2025-07-29 06:01] LABS: ALANINE AMINOTRANSFERASE,ALT < 6 U/L (16-63); LACTIC ACID 1.0 mmol/L (0.4-2.0)
[2025-07-29 06:31] LABS: APPEARANCE,URINE CLOUDY (Clear); GLUCOSE,URINE 1+ (Negative); OCCULT BLOOD,URINE 2+ (Negative)
[2025-07-29 06:44] LABS: SQUAMOUS EPITHELIAL CELLS,UR 0-5 /hpf (0-5)
[2025-07-29] MEDS: cefTRIAXone 1 GM in Water For Injection, Sterile 10 ML IVPUSH ONE (06:56)
[2025-07-29] MEDS ORDERED: 50% Dextrose in Water 50 ML Syringe IVPUSH PRN (11:55)
[2025-07-29] MEDS: Insulin Lispro 100 Unit/ML 3 ML KwikPen SUBCUT SCH (17:08)
[2025-07-29] MEDS: Carbidopa/Levodopa 25-100 MG Tab.ER PO SCH (21:10)
[2025-07-30] MEDS: cefTRIAXone 1 GM in Water For Injection, Sterile 10 ML IVPUSH SCH (05:45)
[2025-07-30 05:56] LABS: BASOPHILS ABSOLUTE AUTO 0.0 K/mm3 (0.0-0.2); BASOPHILS PERCENT AUTO 0.1 % (0.0-1.0); EOSINOPHILS ABSOLUTE AUTO 0.1 K/mm3 (0.0-0.4); EOSINOPHILS PERCENT AUTO 1.1 % (0.0-6.0); IMMATURE GRAN ABSOLUTE AUTO 0.04 K/mm3 (0.00-0.05); IMMATURE GRAN PERCENT AUTO 0.4 % (0.0-0.4); LYMPHOCYTES ABSOLUTE AUTO 1.0 K/mm3 (1.0-4.8); LYMPHOCYTES PERCENT AUTO 9.1 % (24.0-44.0); MEAN PLATELET VOLUME 10.1 fl (9.4-12.4); MONOCYTES ABSOLUTE AUTO 1.2 K/mm3 (0.0-0.8); MONOCYTES PERCENT AUTO 11.7 % (0.0-8.0); NEUTROPHILS ABSOLUTE AUTO 8.2 K/mm3 (1.8-7.7); NEUTROPHILS PERCENT AUTO 77.6 % (41.0-71.0); NRBC ABSOLUTE 0.00 (0.00-0.02); NRBC PERCENT 0.0 % (0.0-0.2); PLATELET COUNT,PLT 158 K/mm3 (150-400); RED BLOOD CELL COUNT 3.77 M/mm3 (4.52-5.90); WHITE BLOOD CELL COUNT,WBC 10.59 K/mm3 (3.9-11.3)
[2025-07-30 06:02] LABS: A/G RATIO 0.5 (1-2); ASPARTATE AMNIOTRANSFERASE,AST 20.0 U/L (15-37); BILIRUBIN TOTAL 0.5 mg/dL (0.2-1.0); BLOOD UREA NITROGEN,BUN 18.0 mg/dL (7-18); CARBON DIOXIDE,CO2 28.0 mEq/L (21-32); CHLORIDE,CL 102.0 mEq/L (98-107); CREATININE 1.1 mg/dL (0.7-1.3); EST CRCL DRUG DOSING (CG) 66.42 mL/min; ESTIMATED GFR 70.0 mL/min (>60); GLUCOSE RANDOM 250.0 mg/dL (70-99); POTASSIUM,K 4.0 mEq/L (3.5-5.1); PROTEIN TOTAL,TP 6.1 g/dl (6.4-8.2); SODIUM,NA 137.0 mEq/L (136-145)
[2025-07-30 06:15] LABS: ALANINE AMINOTRANSFERASE,ALT 6.0 U/L (16-63)
[2025-07-30] MEDS: Insulin Glargine,Human Rec. Analog 100 Units/ML 3 ML Pen SUBCUT SCH ×2 (08:06→20:24)
[2025-07-30 10:59] LABS: TSH 2.839 uIU/mL (0.358-3.74)
[2025-07-30] MEDS: Carbidopa/Levodopa 25-100 MG Tab.ER PO SCH (20:16)
[2025-07-31 05:45] LABS: BASOPHILS ABSOLUTE AUTO 0.0 K/mm3 (0.0-0.2); BASOPHILS PERCENT AUTO 0.2 % (0.0-1.0); EOSINOPHILS ABSOLUTE AUTO 0.3 K/mm3 (0.0-0.4); EOSINOPHILS PERCENT AUTO 3.0 % (0.0-6.0); IMMATURE GRAN ABSOLUTE AUTO 0.03 K/mm3 (0.00-0.05); IMMATURE GRAN PERCENT AUTO 0.4 % (0.0-0.4); LYMPHOCYTES ABSOLUTE AUTO 1.3 K/mm3 (1.0-4.8); LYMPHOCYTES PERCENT AUTO 15.6 % (24.0-44.0); MEAN PLATELET VOLUME 10.0 fl (9.4-12.4); MONOCYTES ABSOLUTE AUTO 0.9 K/mm3 (0.0-0.8); MONOCYTES PERCENT AUTO 10.5 % (0.0-8.0); NEUTROPHILS ABSOLUTE AUTO 5.8 K/mm3 (1.8-7.7); NEUTROPHILS PERCENT AUTO 70.3 % (41.0-71.0); NRBC ABSOLUTE 0.00 (0.00-0.02); NRBC PERCENT 0.0 % (0.0-0.2); PLATELET COUNT,PLT 157 K/mm3 (150-400); RED BLOOD CELL COUNT 3.66 M/mm3 (4.52-5.90); WHITE BLOOD CELL COUNT,WBC 8.21 K/mm3 (3.9-11.3)
[2025-07-31 05:59] LABS: A/G RATIO 0.5 (1-2); ASPARTATE AMNIOTRANSFERASE,AST 18.0 U/L (15-37); BILIRUBIN TOTAL 0.4 mg/dL (0.2-1.0); BLOOD UREA NITROGEN,BUN 15.0 mg/dL (7-18); CARBON DIOXIDE,CO2 29.0 mEq/L (21-32); CHLORIDE,CL 103.0 mEq/L (98-107); CREATININE 0.9 mg/dL (0.7-1.3); EST CRCL DRUG DOSING (CG) 81.19 mL/min; ESTIMATED GFR 89.0 mL/min (>60); GLUCOSE RANDOM 187.0 mg/dL (70-99); POTASSIUM,K 4.0 mEq/L (3.5-5.1); PROTEIN TOTAL,TP 6.1 g/dl (6.4-8.2); SODIUM,NA 138.0 mEq/L (136-145); VANCOMYCIN RANDOM 7.5 ug/mL
[2025-07-31 06:11] LABS: ALANINE AMINOTRANSFERASE,ALT 6.0 U/L (16-63)
[2025-07-31] MEDS: VANCOmycin 1.25 GM/250 ML 1.25 GM in Premix Bag 1 BAG IV SCH (20:44)
[2025-08-01 05:34] LABS: BASOPHILS ABSOLUTE AUTO 0.0 K/mm3 (0.0-0.2); BASOPHILS PERCENT AUTO 0.3 % (0.0-1.0); EOSINOPHILS ABSOLUTE AUTO 0.3 K/mm3 (0.0-0.4); EOSINOPHILS PERCENT AUTO 5.0 % (0.0-6.0); IMMATURE GRAN ABSOLUTE AUTO 0.02 K/mm3 (0.00-0.05); IMMATURE GRAN PERCENT AUTO 0.3 % (0.0-0.4); LYMPHOCYTES ABSOLUTE AUTO 1.3 K/mm3 (1.0-4.8); LYMPHOCYTES PERCENT AUTO 19.7 % (24.0-44.0); MEAN PLATELET VOLUME 9.9 fl (9.4-12.4); MONOCYTES ABSOLUTE AUTO 0.7 K/mm3 (0.0-0.8); MONOCYTES PERCENT AUTO 10.8 % (0.0-8.0); NEUTROPHILS ABSOLUTE AUTO 4.3 K/mm3 (1.8-7.7); NEUTROPHILS PERCENT AUTO 63.9 % (41.0-71.0); NRBC ABSOLUTE 0.00 (0.00-0.02); NRBC PERCENT 0.0 % (0.0-0.2); PLATELET COUNT,PLT 174 K/mm3 (150-400); RED BLOOD CELL COUNT 3.56 M/mm3 (4.52-5.90); WHITE BLOOD CELL COUNT,WBC 6.65 K/mm3 (3.9-11.3)
[2025-08-01 05:56] LABS: A/G RATIO 0.5 (1-2); ALANINE AMINOTRANSFERASE,ALT 7.0 U/L (16-63); ASPARTATE AMNIOTRANSFERASE,AST 19.0 U/L (15-37); BILIRUBIN TOTAL 0.4 mg/dL (0.2-1.0); BLOOD UREA NITROGEN,BUN 20.0 mg/dL (7-18); CARBON DIOXIDE,CO2 30.0 mEq/L (21-32); CHLORIDE,CL 106.0 mEq/L (98-107); CREATININE 1.0 mg/dL (0.7-1.3); EST CRCL DRUG DOSING (CG) 73.07 mL/min; ESTIMATED GFR 78.0 mL/min (>60); GLUCOSE RANDOM 129.0 mg/dL (70-99); POTASSIUM,K 4.0 mEq/L (3.5-5.1); PROTEIN TOTAL,TP 5.8 g/dl (6.4-8.2); SODIUM,NA 142.0 mEq/L (136-145)
[2025-08-01] MEDS ORDERED: ceFAZolin 2 GM in Water For Injection, Sterile 20 ML IVPUSH SCH (09:00)
[2025-08-01] MEDS: ceFAZolin 2 GM in Water For Injection, Sterile 20 ML IVPUSH SCH (11:20)
[2025-08-01] MEDS: Insulin Glargine,Human Rec. Analog 100 Units/ML 3 ML Pen SUBCUT SCH (22:10)
[2025-08-02 05:44] LABS: BASOPHILS ABSOLUTE AUTO 0.0 K/mm3 (0.0-0.2); BASOPHILS PERCENT AUTO 0.5 % (0.0-1.0); EOSINOPHILS ABSOLUTE AUTO 0.4 K/mm3 (0.0-0.4); EOSINOPHILS PERCENT AUTO 5.1 % (0.0-6.0); IMMATURE GRAN ABSOLUTE AUTO 0.03 K/mm3 (0.00-0.05); IMMATURE GRAN PERCENT AUTO 0.4 % (0.0-0.4); LYMPHOCYTES ABSOLUTE AUTO 1.4 K/mm3 (1.0-4.8); LYMPHOCYTES PERCENT AUTO 18.1 % (24.0-44.0); MEAN PLATELET VOLUME 10.2 fl (9.4-12.4); MONOCYTES ABSOLUTE AUTO 0.8 K/mm3 (0.0-0.8); MONOCYTES PERCENT AUTO 10.3 % (0.0-8.0); NEUTROPHILS ABSOLUTE AUTO 5.0 K/mm3 (1.8-7.7); NEUTROPHILS PERCENT AUTO 65.6 % (41.0-71.0); NRBC ABSOLUTE 0.00 (0.00-0.02); NRBC PERCENT 0.0 % (0.0-0.2); PLATELET COUNT,PLT 208 K/mm3 (150-400); RED BLOOD CELL COUNT 3.76 M/mm3 (4.52-5.90); WHITE BLOOD CELL COUNT,WBC 7.68 K/mm3 (3.9-11.3)
[2025-08-02 06:17] LABS: A/G RATIO 0.5 (1-2); ALANINE AMINOTRANSFERASE,ALT 6.0 U/L (16-63); ASPARTATE AMNIOTRANSFERASE,AST 8.0 U/L (15-37); BILIRUBIN TOTAL 0.3 mg/dL (0.2-1.0); BLOOD UREA NITROGEN,BUN 16.0 mg/dL (7-18); CARBON DIOXIDE,CO2 28.0 mEq/L (21-32); CHLORIDE,CL 102.0 mEq/L (98-107); CREATININE 0.8 mg/dL (0.7-1.3); EST CRCL DRUG DOSING (CG) 91.33 mL/min; ESTIMATED GFR 92.0 mL/min (>60); GLUCOSE RANDOM 193.0 mg/dL (70-99); POTASSIUM,K 3.9 mEq/L (3.5-5.1); PROTEIN TOTAL,TP 5.9 g/dl (6.4-8.2); SODIUM,NA 138.0 mEq/L (136-145)
[2025-08-02] MEDS: Trolamine Salicylate/Aloe Vera 10% Crm 85 GM Tube TOP PRN (11:40)
[2025-08-04] MEDS: Carbidopa/Levodopa 25-100 MG Tab.ER PO SCH (18:57)
[2025-08-05 12:06] LABS: BASOPHILS ABSOLUTE AUTO 0.0 K/mm3 (0.0-0.2); BASOPHILS PERCENT AUTO 0.3 % (0.0-1.0); EOSINOPHILS ABSOLUTE AUTO 0.3 K/mm3 (0.0-0.4); EOSINOPHILS PERCENT AUTO 2.4 % (0.0-6.0); IMMATURE GRAN ABSOLUTE AUTO 0.07 K/mm3 (0.00-0.05); IMMATURE GRAN PERCENT AUTO 0.6 % (0.0-0.4); LYMPHOCYTES ABSOLUTE AUTO 1.7 K/mm3 (1.0-4.8); LYMPHOCYTES PERCENT AUTO 14.5 % (24.0-44.0); MEAN PLATELET VOLUME 9.5 fl (9.4-12.4); MONOCYTES ABSOLUTE AUTO 0.8 K/mm3 (0.0-0.8); MONOCYTES PERCENT AUTO 7.0 % (0.0-8.0); NEUTROPHILS ABSOLUTE AUTO 8.9 K/mm3 (1.8-7.7); NEUTROPHILS PERCENT AUTO 75.2 % (41.0-71.0); NRBC ABSOLUTE 0.00 (0.00-0.02); NRBC PERCENT 0.0 % (0.0-0.2); RED BLOOD CELL COUNT 4.22 M/mm3 (4.52-5.90); WHITE BLOOD CELL COUNT,WBC 11.79 K/mm3 (3.9-11.3)
[2025-08-05 12:08] LABS: PLATELET COUNT,PLT 285 K/mm3 (150-400)
[2025-08-05 12:49] LABS: A/G RATIO 0.5 (1-2); ALANINE AMINOTRANSFERASE,ALT 9.0 U/L (16-63); ASPARTATE AMNIOTRANSFERASE,AST 11.0 U/L (15-37); BILIRUBIN TOTAL 0.3 mg/dL (0.2-1.0); BLOOD UREA NITROGEN,BUN 23.0 mg/dL (7-18); CARBON DIOXIDE,CO2 29.0 mEq/L (21-32); CHLORIDE,CL 100.0 mEq/L (98-107); CREATININE 1.2 mg/dL (0.7-1.3); EST CRCL DRUG DOSING (CG) 60.89 mL/min; ESTIMATED GFR 63.0 mL/min (>60); GLUCOSE RANDOM 270.0 mg/dL (70-99); POTASSIUM,K 4.5 mEq/L (3.5-5.1); PROTEIN TOTAL,TP 7.3 g/dl (6.4-8.2); SODIUM,NA 138.0 mEq/L (136-145)
[2025-08-05] MEDS: Nystatin Topical Powder 15 GM Bottle TOP SCH (13:16)
[2025-08-07 15:37] VITALS: BP 149/92; PULSE 62
== END 2025-08-07 15:35 | disposition home or self-care (01) | DRG 698 ==
LOC: JD.ED 04:14 → JD.MS 07:47
PROVIDERS: ADMIT Family Medicine; ATTEND Internal Medicine Cardiovascular Disease
DX: T83.593A Infection and inflammatory reaction due to other urinary stents, initial encounter (principal); J18.9 Pneumonia, unspecified organism; N39.0 Urinary tract infection, site not specified; R09.02 Hypoxemia; R31.9 Hematuria, unspecified; N12 Tubulo-interstitial nephritis, not specified as acute or chronic; R78.81 Bacteremia; E78.00 Pure hypercholesterolemia, unspecified; M19.90 Unspecified osteoarthritis, unspecified site; E11.9 Type 2 diabetes mellitus without complications; I10 Essential (primary) hypertension; Z79.890 Hormone replacement therapy; Z96.659 Presence of unspecified artificial knee joint; G20.A1 Parkinson's disease without dyskinesia, without mention of fluctuations; B95.61 Methicillin susceptible Staphylococcus aureus infection as the cause of diseases classified elsewhere; E03.9 Hypothyroidism, unspecified; Z79.4 Long term (current) use of insulin; Z79.84 Long term (current) use of oral hypoglycemic drugs; Z79.899 Other long term (current) drug therapy; Z87.442 Personal history of urinary calculi; Z86.16 Personal history of COVID-19; Z98.890 Other specified postprocedural states; Y73.2 Prosthetic and other implants, materials and accessory gastroenterology and urology devices associated with adverse incidents; Y83.8 Other surgical procedures as the cause of abnormal reaction of the patient, or of later complication, without mention of misadventure at the time of the procedure
CPT/HCPCS: 36415; 71045; 74176; 80053; 81001; 83605; 83690; 83880; 85025; 87040 ×2; 87077; 87086; 87088; 87147; 87154; 87186 ×2; 96361; 96374; 99285; J0696; J7030; 80202; 82947; 83036; 84443; 87641; 93306; 94761; 97110-GO; 97110-GP; 97116-GP; 97162-GP; 97165-GO; 97530-GO; 97530-GP; 97535-GO; 99223; 99231; 99232; 99239; A4216; A9270-GY; J0456; J0690; J1650; J1815-GY; J3373; J3375; J3490; J7050